=== PATIENT | female | born 1950 | race Caucasian/White ===

== ENCOUNTER 2022-01-04 10:33 | Outpatient (CLI) | payer MEDICARE, SELFPAY ==
--- NOTE | ~2022-01-04 | MR_ITS ---
EXAMINATION: MRA chest wo/w con DATE: 01/04/2022 12:14 INDICATION: Chest pain TECHNIQUE: Magnetic resonance angiogram (MRA) of the chest and thoracic aorta was performed without a nd with 15 mL Multihance intravenous contrast. Sequences included axial and coronal T2-weighted FS FS E, axial and sagittal 2D FIESTA FS, 3-D sagittal IFIR, axial MPR, coronal MIP, sagittal pre and time course of postcontrast T1-weighted FSPGR and postcontrast 3-D axial LAVA. COMPARISON: None. FINDINGS: No evident airspace disease or pleural effusion assessment of the lungs is significantly more limited than with CT. There is an AV malformation in the right middle lobe with both feeding pulmonary arter y and draining pulmonary vein extending to approximately 1 cm cluster of vessels. Heart size is scottie l. No pericardial effusion. Thoracic aorta and great vessels arising from the arch are normal in aysha suze with no dissection. No pathologically enlarged thoracic lymphadenopathy. Multiple T2 hyperintense bilateral renal cysts and small T2 hyperintense cyst in the left hepatic lobe. Mild S-shaped curvatu re of the thoracic spine with upper thoracic levocurvature and mid to lower thoracic dextrocurvature. IMPRESSION: 1. Normal caliber thoracic aorta with no dissection. 2. Right middle lobe pulmonary arteriovenous malformation. Reviewed, dictated and finalized at location A.
[2022-01-04 11:16] LABS: Estimated Glomerular Filt Rate 49
== END 2022-01-04 10:34 | disposition home or self-care (01) ==
PROVIDERS: PCP Family Medicine; Visit Provider Internal Medicine Cardiovascular Disease
DX: R07.9 Chest pain, unspecified (principal); N18.4 Chronic kidney disease, stage 4 (severe)
CPT/HCPCS: 71555; A9577; C8909

== ENCOUNTER 2022-06-30 10:37 | Outpatient (CLI) | payer MEDICARE, SELFPAY | END 2022-06-30 10:38 | disposition home or self-care (01) | PROVIDERS: PCP Family Medicine; Visit Provider Otolaryngology | DX: R00.1 Bradycardia, unspecified (principal); R55 Syncope and collapse; I48.0 Paroxysmal atrial fibrillation; H90.3 Sensorineural hearing loss, bilateral | CPT/HCPCS: 92557; 92567 ==

== ENCOUNTER 2022-07-01 10:46 | Outpatient (CLI) | payer MEDICARE, SELFPAY ==
--- NOTE | ~2022-07-01 | CT_ITS ---
EXAMINATION: CT sinus wo con DATE: 07/01/2022 11:32 INDICATION: Chronic sinusitis. TECHNIQUE: Computed tomography (CT) of the paranasal sinuses was performed without intravenous contra st. Iterative reconstruction technique was employed. The dose-length product was 265.49 mGy-cm. COMPARISON: Head CT 03/07/2009 FINDINGS: There is mild mucosal thickening in right frontal sinus and the bilateral ethmoid sinuses. The sphenoid sinuses are clear. There is mild mucosal thickening in right maxillary sinus. Left maxil anamika sinus is clear. There is rightward deviation of the nasal septum. There is marshall bullosa involv ing the middle turbinates. There are bilateral Jose Eduardo cells. The ostiomeatal units are patent. IMPRESSION: 1. Mild mucosal thickening in the paranasal sinuses. 2. Rightward deviation of the nasal septum. Reviewed, dictated and finalized at location A.
== END 2022-07-01 10:47 | disposition home or self-care (01) ==
PROVIDERS: PCP Family Medicine; Visit Provider Otolaryngology
DX: J32.9 Chronic sinusitis, unspecified (principal); J34.89 Other specified disorders of nose and nasal sinuses; R09.81 Nasal congestion; R44.8 Other symptoms and signs involving general sensations and perceptions; R09.82 Postnasal drip; J34.2 Deviated nasal septum
CPT/HCPCS: 70486

== ENCOUNTER → 2022-10-27 14:06 | Outpatient (CLI) | payer MEDICARE, SELFPAY ==
--- NOTE | ~2022-10-27 | XR_ITS ---
EXAMINATION: XR foot LT min 3V DATE: 10/27/2022 14:24 INDICATION: Fifth metatarsal pain post fall TECHNIQUE: Dorsoplantar, two oblique and lateral views of the left foot were obtained. COMPARISON: 10/23/2015 FINDINGS: Again seen is prominent diffuse osteopenia. Old fracture of the fifth metatarsal diaphysis which has healed in near-anatomic alignment. No acute fractures identified. Polyarticular osteoarthritis, moder ate severity at the naviculocuneiform, second and third tarsal metatarsal, first metatarsophalangeal and third-fourth distal interphalangeal joints and mild at many of the remaining joints in the mid an d forefoot. Moderate-sized plantar calcaneal spur. Scattered vascular calcifications about the foot a nd ankle. Soft tissues are otherwise unremarkable. No ankle joint effusion. IMPRESSION: 1. Old healed fracture of the left fifth metatarsal. No acute osseous abnormality. 2. Mild to moderate polyarticular osteoarthritis in the left mid and forefoot. Reviewed, dictated and finalized at location A. H MAKER IMPRESSION: 1. Old healed fracture of the left fifth metatarsal. No acute osseous abnormali ty. 2. Mild to moderate polyarticular osteoarthritis in the left mid and forefoot.
== END ==
PROVIDERS: PCP Family Medicine; Visit Provider Family Medicine
DX: S99.199A Other physeal fracture of unspecified metatarsal, initial encounter for closed fracture (principal); X58.XXXA Exposure to other specified factors, initial encounter; M19.072 Primary osteoarthritis, left ankle and foot
CPT/HCPCS: 73630

== ENCOUNTER → 2023-07-13 12:27 | Outpatient (CLI) | payer MEDICARE, SELFPAY ==
--- NOTE | ~2023-07-13 | MR_ITS ---
MRI of the brain Clinical History: Encephalitis Technique: Axial and sagittal T1-weighted images were acquired. These were followed by axial T2-weigh jason, diffusion weighted, gradient, and FLAIR images. Findings: No significant signal abnormality seen in the brain parenchyma. No acute infarct, intracran ial hemorrhage, or mass lesion. Ventricles and subarachnoid spaces are unremarkable. Orbits are unremarkable. Paranasal sinuses and m astoid air cells are clear. Major intracranial flow voids are intact. Sagittal midline structures are intact. There is suspected mild cord compression at C4-C5 related to degenerative disc disease. IMPRESSION: No significant intracranial abnormality. Probable mild cord compression at C4-C5 related to degenerative disc disease. Consider follow-up dedi cated cervical spine MR, as indicated. Reviewed, dictated and finalized at location . IMPRESSION: No significant intracranial abnormality. Probable mild cord compression at C4-C5 related to degenerative disc disease. C onsider follow-up dedicated cervical spine MR, as indicated.
== END ==
PROVIDERS: PCP Family Medicine; Visit Provider Family Medicine
DX: G04.90 Encephalitis and encephalomyelitis, unspecified (principal)
CPT/HCPCS: 70551

== ENCOUNTER 2023-07-27 08:34 | Outpatient (CLI) | payer MEDICARE, SELFPAY ==
--- NOTE | 2023-08-20 20:51 | WPDSLEEPSTUD ---
Sleep Study Date of Study: 07/27/23 Ordering Provider: Nikunj Sandoval MD Interpreting Physician: Susan Sung MD Sleep Study Type: Split Polysomnogram Height: 1.75 m Weight: 112.491 kg Body Mass Index: 36.6 Neck Circumference (inches): 17 [place]: 12 Reason for Sleep Study Fatigue, hypersomnolence Sleep History Radha Crocker is a 73-year-old woman with hypersomnolence and fatigue. She used CPAP over 10 years ago, was treated at [place]. She lost weight, retested, was told that she no longer had sleep apnea. She now is seeing Dr Sandoval, Dr Bella and Dr Travis. Her current symptoms is fatigue for over 2 months. She never awakens from sleep short of breath. She occasionally wakes at night with heartburn, belching or coughing.??She rarely snores, never snores loudly enough that others complain. She frequently has trouble sleeping when she has a cold. She never wakes up gasping for breath during the night. She never has breathing problems at night observed by others. She frequently sweats excessively at night. She never notices her heart pounding or beating irregularly during the night. She never falls asleep during the day. She never falls asleep involuntarily, never falls asleep while driving. She never experiences loss of muscle tone with strong emotion. She never feels paralyzed on waking or falling asleep. She never experiences vivid dreams upon waking or falling asleep. She never feels afraid of going to sleep. She rarely has nightmares. She rarely recalls her dreams. She never has thoughts racing through her mind. She rarely feels sad or depressed. She rarely feels anxiety. She occasionally notices parts of her body jerk. She occasionally kicks during the night. She frequently feels crawling or aching feelings in her legs. She frequently feels leg pain at night. She never has morning jaw pain, frequently grinds her teeth at night. She frequently feels bothered by pain during the day, is occasionally awakened by pain during the night. She frequently wakes up feeling stiff in the morning, frequently wakes feeling sore or achy in the morning. She frequently awakens with pain in her neck, spine, or joints. She has had memory problems for the last 2 months.. She has had concentration difficulties which seem to be improving. Normal bedtime is 10:00 p.m., falling asleep in minutes. She wakes up 3-4 times during the night to use the bathroom, returns to sleep within 5-10 minutes. She reports getting 8-10 hours of sleep per night. Her wake time is between 7:00 a.m. to 9:00 a.m. She takes naps however a short nap lasting 10-15 minutes is not refreshing. . Habits:??Tobacco: never smoker Caffeine:8 oz per day. Alcohol: none. Recreational substances: none PMFSH Past Medical History Medical History Back pain of thoracolumbar region Cervical spinal stenosis C4-5 Essential (primary) hypertension Infection of total knee replacement LVH (left ventricular hypertrophy) Morbid obesity with BMI of 40.0-44.9, adult Obstructive sleep apnea Osteoarthritis of right knee Senile osteoporosis Type 2 diabetes mellitus with diabetic autonomic neuropathy, with long-term current use of insulin Vertigo Family History Family History Grandparent Diabetes mellitus Hypertension Family history of cardiovascular disease Sibling Diabetes mellitus Depression Hypertension Asthma Family history of cardiovascular disease Father Family history of mental disorder Family history of lung cancer Mother Family history of mental disorder Depression Hypertension Family history of cardiovascular disease Other Family history of malignant neoplasm of breast Social History Social History Smoking status: Never smoker Alcohol intake: never Lack of Transportation
[2023-08-20 23:41] VITALS: BMI 36.6
== END 2023-07-28 06:35 | disposition home or self-care (01) ==
LOC: ANHCSM 08:35
PROVIDERS: PCP Family Medicine; Visit Provider Family Medicine
DX: G47.33 Obstructive sleep apnea (adult) (pediatric) (principal)
CPT/HCPCS: 95811

== ENCOUNTER → 2023-09-28 10:31 | Outpatient (CLI) | payer MEDICARE, SELFPAY ==
--- NOTE | ~2023-09-28 | MR_ITS ---
MRI of the lumbar spine Clinical History: Spinal stenosis Technique: Axial T2-weighted images, and sagittal T1-weighted, T2-weighted, and and T2 fat-sat images were acquired. Findings: No acute fracture seen. There is a 5 mm retrolisthesis of L2 over L3. No suspicious bone ma rrow signal abnormality seen. At L1-L2, there is mild degenerative disc narrowing. There is minimal disc bulge and mild facet arthr opathy. No central canal stenosis or neural foraminal narrowing. At L2-L3, there is advanced degenerative disc narrowing. Disc bulge and facet arthropathy result in m oderate to severe spinal canal stenosis/thecal sac compression. There is severe right neural foramina l narrowing, and moderate left neural foraminal narrowing. L3-L4, there is advanced degenerative disc narrowing. Disc bulge and facet arthropathy result in mode rate to severe spinal canal stenosis/thecal sac compression. There is severe right neural foraminal n arrowing, and moderate to severe right neural foraminal narrowing. At L4-L5, there is advanced degenerative disc narrowing. Disc bulge and severe facet arthropathy resu lt in severe spinal canal stenosis/thecal sac compression. There is severe bilateral neural foraminal narrowing, left worse than right. At L5-S1, there is degenerative disc narrowing. Disc bulge and facet arthropathy are present, with mi ld central canal stenosis. There is mild right neural foraminal narrowing. Left neural foramen preser jeanette. Paravertebral soft tissues are unremarkable. Impression: 5 mm retrolisthesis of L2 over L3. Severe degenerative spondylosis of the lumbar spine, as detailed above, probably worst at L4-L5. Reviewed, dictated and finalized at location . NESS MANAGEMENT PROFESSOR Impression: 5 mm retrolisthesis of L2 over L3. Severe degenerative spondylosis of the lumbar spine, as detailed above, probabl y worst at L4-L5.
== END ==
PROVIDERS: PCP Family Medicine; Visit Provider Family Medicine
DX: M48.061 Spinal stenosis, lumbar region without neurogenic claudication (principal); M43.16 Spondylolisthesis, lumbar region
CPT/HCPCS: 72148

== ENCOUNTER → 2023-10-18 08:44 | Outpatient (CLI) | payer MEDICARE, SELFPAY ==
--- NOTE | ~2023-10-18 | XR_ITS ---
Left Shoulder Technique: AP and scapular Y views were obtained. Clinical History: Pain Findings: No fracture or dislocation is seen. Osseous alignment is anatomic. There is [id number] e AC joint degenerative change. Glenohumeral joint is intact. Soft tissues are unremarkable. Impression: [id number] AC joint degenerative change. Reviewed, dictated and finalized at location . EHOLD APPLIANCE ASSEMBLER Impression: [id number] AC joint degenerative change.
--- NOTE | ~2023-10-18 | XR_ITS ---
EXAM: XR lumbar spine 6V w bending DATE: 10/18/2023 09:24 HISTORY: M48.061 - Spinal stenosis, lumbar region without neurogen... . COMPARISON: 12/11/2007. FINDINGS: 5 nonrib-bearing lumbar-type vertebral bodies. Pedicles intact. Moderate lumbar scoliosis. No pars defect. Grade 1 retrolistheses at L1-2 and L2-3, similar to the prior, that reduce in flexio n and are stable in extension. Grade 1 anterolisthesis at L4-5, similar to the prior, that increases to grade 2 in flexion and is stable in extension. Severe degenerative disc disease from L2-3 through L5-S1. Moderate facet sclerosis and hypertrophy in the lower lumbar spine. Vascular calcifications. N o fracture or dislocation. IMPRESSION: Dynamic listheses at L1-2, L2-3, and L4-5. Multilevel severe degenerative disc disease. Multilevel lower moderate lower lumbar facet arthropathy. Reviewed, dictated and finalized at location K. STONE CUTTER
== END ==
PROVIDERS: PCP Family Medicine; Visit Provider Physician Assistant
DX: M48.061 Spinal stenosis, lumbar region without neurogenic claudication (principal); M51.36 Other intervertebral disc degeneration, lumbar region; M19.012 Primary osteoarthritis, left shoulder
CPT/HCPCS: 72114; 73030

== ENCOUNTER → 2023-10-19 12:46 | Outpatient (CLI) | payer MEDICARE, SELFPAY ==
--- NOTE | ~2023-10-19 | MR_ITS ---
MRI of the cervical spine Clinical History: Spinal stenosis Technique: Axial T2-weighted and gradient images, and sagittal T1-weighted, T2-weighted, and STIR veda ges were acquired. Findings: There is no fracture of the cervical spine. There is minimal grade 1 anterolisthesis of C3 over C4. No suspicious bone marrow signal abnormality seen. At C2-C3, there is no significant disc bulge or herniation. No spinal canal stenosis, cord compressio n, or neural foraminal narrowing. There is right facet arthropathy. At C3-C4, there is mild disc osteophyte complex without canal stenosis or cord compression. There is right neural foraminal narrowing, and possible minimal left neural foraminal narrowing. There is bila teral facet arthropathy, right worse than left. At C4-C5, there is degenerative disc narrowing with disc osteophyte complex and central disc protrusi on. There is mild canal stenosis and mild flattening of the ventral cord. There is bilateral neural f oraminal narrowing. At C5-C6, there is moderate to advanced degenerative disc narrowing. There is disc ossify complex wit h mild canal stenosis but no jyoti cord compression. There is significant bilateral neural foraminal narrowing. At C6-C7, there is disc osteophyte complex with minimal canal stenosis but no jyoti cord compression. Bilateral neural foramina are preserved. No abnormal signal seen in the spinal cord. Paravertebral soft tissues are unremarkable. Impression: Moderate degenerative spondylosis, especially at C3-C4, C4-C5, and C5-C6, as detailed above. Reviewed, dictated and finalized at [facility], [place]. OR HEALTH PHYSICS TECHNICIAN Impression: Moderate degenerative spondylosis, especially at C3-C4, C4-C5, and C5-C6, as de tailed above.
== END ==
PROVIDERS: PCP Family Medicine; Visit Provider Physician Assistant
DX: M48.061 Spinal stenosis, lumbar region without neurogenic claudication (principal); M47.892 Other spondylosis, cervical region
CPT/HCPCS: 72141

== ENCOUNTER 2024-03-19 12:40 | Outpatient (CLI) | payer MEDICARE, SELFPAY ==
--- NOTE | ~2024-03-19 | CT_ITS ---
EXAMINATION: CT sinus wo con DATE: 03/19/2024 13:04 INDICATION: Nasal polyp, unspecified. TECHNIQUE: Computed tomography (CT) of the paranasal sinuses was performed without intravenous contra st. Iterative reconstruction technique was employed. The dose-length product was 372.86 mGy-cm. COMPARISON: CT sinuses 07/01/22 FINDINGS: There is mild mucosal thickening in the frontal sinuses and ethmoid sinuses. There is mild mucosal thickening in right sphenoid sinus and right maxillary sinus. Left maxillary sinus is clear. There are bilateral Jose Eduardo cells. There is pneumatization of the vertical lamina of the middle turbin ates. Left ostiomeatal unit is patent. Right ostiomeatal unit is a occluded at the infundibulum. Ther e are widely patent bilateral secondary maxillary ostia. There is rightward deviation of the nasal se ptum. IMPRESSION: 1. Mild mucosal thickening in the paranasal sinuses. 2. Rightward deviation of the nasal septum. Reviewed, dictated and finalized at location A.
== END 2024-03-19 12:41 ==
LOC: GOSHIMG 12:40
PROVIDERS: PCP Family Medicine; Visit Provider Family Medicine
DX: R44.8 Other symptoms and signs involving general sensations and perceptions (principal); J32.9 Chronic sinusitis, unspecified; J33.9 Nasal polyp, unspecified; J34.2 Deviated nasal septum
CPT/HCPCS: 70486

== ENCOUNTER 2024-04-04 09:56 | Emergency (ER) | payer MEDICARE, SELFPAY ==
[2024-04-04 10:09] VITALS: BP 148/99; PULSE 94; RESP 17; TEMP 36.4; O2SAT 97
[2024-04-04 10:53] VITALS: BP 176/90; PULSE 94; RESP 18; O2SAT 94
--- NOTE | 2024-04-04 11:00 | ED.LOWEXIN ---
HPI - Extremity Injury (Lower) General Chief Complaint: Extremity Injury, Lower Stated Complaint: ulcer on R. leg Time Seen by Provider: 04/04/24 10:28 History of Present Illness HPI Narrative: 73-year-old female history of hypertension, LVH, type 2 diabetes and arthritis if presents to the ER for evaluation leg wound to her right kimbrough. Patient states she noticed a small ulceration 2 days ago that has grown in size. Reports surrounding erythema pain and swelling. Patient was sent by her PCP for further eval. Denies injury or trauma to the area. Related Data Home Medications Medication Instructions Recorded Confirmed calcium carbonate (Calcium 600) 600 mg PO BID 11/08/19 04/03/24 cetirizine 10 mg tablet 5 mg PO HS 11/08/19 04/03/24 guaifenesin 600 mg tablet, 600 mg PO BID 07/20/21 04/03/24 extended release 12 hr (Mucinex) warfarin 5 mg tablet See Rx Instructions .Route .COMPLEX 09/23/22 04/03/24 losartan 50 mg tablet 50 mg PO HS 12/15/22 04/03/24 aspirin 81 mg tablet,delayed 81 mg PO DAILY 02/22/24 04/03/24 release metoprolol succinate 50 mg 50 mg PO QAM 02/22/24 04/03/24 tablet,extended release 24 hr Probiotic 1 tab-cap BID 04/03/24 04/03/24 amoxicillin 500 mg capsule 500 mg TID 04/03/24 04/03/24 insulin glargine 100 unit/mL (3 80 unit subcut BID 04/03/24 04/03/24 mL) subcutaneous pen (Lantus Solostar U-100 Insulin) isosorbide mononitrate 30 mg 30 mg PO QAM 04/03/24 04/03/24 tablet,extended release 24 hr mometasone-formoterol HFA 200 2 inh inhalation BID 04/03/24 04/03/24 mcg-5 mcg/actuation aerosol inhaler (Dulera) Allergies Allergy/AdvReac Type Severity Reaction Status Date / Time methyldopa Allergy Severe RESP Verified 04/04/24 10:52 DISTRESS adhesive Allergy Mild BLISTERS Verified 04/04/24 10:52 TO STERI STRIPS cefuroxime Allergy Unknown Anaphylactic Verified 04/04/24 10:52 Shock Cephalosporins Allergy Unknown STATES Verified 04/04/24 10:52 ALLERGIC TO CEFTIN - ANAPHYLACTIC SHOCK medroxyprogesterone Allergy Unknown Migraines Verified 04/04/24 10:52 BENZOIN Allergy Unknown RED RASH Uncoded 04/04/24 10:52 SHELLFISH Allergy Unknown NAUSEA/VOMI Uncoded 04/04/24 10:52 TING STERI STRIPS AdvReac Unknown REDNESS Uncoded 04/04/24 10:52 Review of Systems Review of Systems: ROS unremarkable except for noted in HPI PMFSH Past Medical History Medical History Back pain of thoracolumbar region Cervical spinal stenosis C4-5 Essential (primary) hypertension Infection of total knee replacement LVH (left ventricular hypertrophy) Morbid obesity with BMI of 40.0-44.9, adult Obstructive sleep apnea Osteoarthritis of right knee Senile osteoporosis Type 2 diabetes mellitus with diabetic autonomic neuropathy, with long-term current use of insulin Vertigo Family History Family History Grandparent Diabetes mellitus Hypertension Family history of cardiovascular disease Sibling Diabetes mellitus Depression Hypertension Asthma Family history of cardiovascular disease Father Family history of mental disorder Family history of lung cancer Mother Family history of mental disorder Depression Hypertension Family history of cardiovascular disease Other Family history of malignant neoplasm of breast Social History Social History Smoking status: Never smoker Second hand tobacco smoke exposure: No Alcohol intake: never Substance use: never Substance use type: does not use Do You Feel Safe in your Home?: Yes Lack of Transportation: No Lack of Food: Never True Current Housing: I Have Housing Concerned About Future Housing: No Difficulty Paying Gas/Electric Bills: No Difficulty Paying for Meds: No Currently Unemployed: No Education: [place]
[2024-04-04 11:24] LABS: Basophils Absolute Auto 0.1 K/mm3 (0.0-0.1); Basophils Percent Auto 0.9 % (0.2-1.2); Eosinophils Absolute Auto 0.3 K/mm3 (0-0.3); Eosinophils Percent Auto 4.2 % (0-4.4); Hematocrit 44.7 % (37.0-47.0); Hemoglobin 14.7 g/dL (12.0-15.0); Immature Granulocyte Absolute 0.04 K/mm3 (0.00-0.031); Immature Granulocyte Percent A 0.6 % (0-0.5); Lymphocytes Absolute Auto 1.79 K/mm3 (0.9-3.2); Lymphocytes Percent Auto 28.1 % (18.3-44.2); Mean Corpuscular HGB Conc 32.9 g/dl (32-36); Mean Corpuscular Hemoglobin 29.9 pg (26-34); Mean Corpuscular Volume 90.9 fl (80-100); Mean Platelet Volume 9.1 fl (7.4-10.4); Monocytes Absolute Auto 0.5 K/mm3 (0.1-0.6); Neutrophils Absolute Auto 3.7 K/mm3 (1.3-6.7); Neutrophils Percent Auto 58.2 % (45.5-73.1); Platelet Count Result 248 k/mm3 (150-375); Red Blood Count 4.92 M/mm3 (4.2-5.4); Red Cell Distribution Width 14.8 % (11.5-14.5); White Blood Count 6.4 K/mm3 (4.5-10.0)
[2024-04-04 11:34] LABS: Alanine Aminotransferase 27 U/L (6-35); Albumin Level 4.3 g/dL (3.5-5.1); Alkaline Phosphatase 103 U/L (38-126); Anion Gap 8 mmol/L (4-12); Aspartate Amino Transferase 23 U/L (14-36); Bilirubin,Total 0.6 mg/dL (0.2-1.3); Blood Urea Nitrogen 29 mg/dL (7-17); Carbon Dioxide 28 mmol/L (22-30); Chloride 103 mmol/L (98-107); Estimated CRCL calculation 48 ml/min; Estimated Glomerular Filt Rate 40; Glucose 182 mg/dL (65-110); Potassium 4.5 mmol/L (3.4-5.0); Sodium 139 mmol/L (137-145)
== END 2024-04-04 11:48 | disposition home or self-care (01) ==
PROVIDERS: Emergency Provider Nurse Practitioner Family; PCP Family Medicine
DX: E11.622 Type 2 diabetes mellitus with other skin ulcer (principal); L97.819 Non-pressure chronic ulcer of other part of right lower leg with unspecified severity; I11.9 Hypertensive heart disease without heart failure; E11.43 Type 2 diabetes mellitus with diabetic autonomic (poly)neuropathy; E66.01 Morbid (severe) obesity due to excess calories; Z68.37 Body mass index [BMI] 37.0-37.9, adult; M81.0 Age-related osteoporosis without current pathological fracture; M17.11 Unilateral primary osteoarthritis, right knee; Z96.659 Presence of unspecified artificial knee joint; Z79.82 Long term (current) use of aspirin; Z79.899 Other long term (current) drug therapy; Z79.4 Long term (current) use of insulin; Z79.01 Long term (current) use of anticoagulants; Z79.84 Long term (current) use of oral hypoglycemic drugs
CPT/HCPCS: 36415; 80053; 85025; 87070; 87205; 99283

== ENCOUNTER 2024-04-06 10:08 | Outpatient (CLI) | payer MEDICARE, SELFPAY ==
[2024-04-06 11:09] LABS: INR 1.3; Partial Thromboplastin Time 30.6 Seconds (22.3-36.8); Prothrombin Time 16.6 Seconds (11.1-14.7)
== END 2024-04-06 10:09 | disposition home or self-care (01) ==
LOC: ANHSURGERY 10:12
PROVIDERS: Anesthesiology; PCP Family Medicine; Visit Provider Otolaryngology
DX: Z79.01 Long term (current) use of anticoagulants (principal)
CPT/HCPCS: 36415; 85610; 85730

== ENCOUNTER 2024-04-10 02:56 | Day surgery (SDC) | payer MEDICARE, SELFPAY ==
[2024-04-03 11:54] VITALS: BMI 37.8
--- NOTE | 2024-04-03 12:16 | PC.NURSE ---
PRE-OP INSTRUCTIONS PLEASE READ CAREFULLY Report to the Outpatient Waiting Room, entrance under the green pavilion located off [facility], at time _1100_ on date _04/10/24_. Planned Procedure Time: _1 PM_. Time changes happen often and if your time is changed the preop area will call you the afternoon before. - You and your visitor will be asked to self-screen and do not enter if you have any COVID symptoms. - A mask is optional within the hospital at this time. Patients may have clear liquids (water, carbonated beverages, clear teas, apple juice) until 3 hours prior to surgery (1000 AM) with a maximum of 20 ounces. - No food from midnight until time of surgery Take the following medications with a SIP of water the morning of surgery: _*1/2 OF AM LANTUS DOSE, DO NOT TAKE ANY HUMALOG INSULIN*, AMOXICILLIN, CELEBREX, ISOSORBIDE, LEVOTHYROXINE, METOPROLOL, DULERA INHALER, & ALBUTEROL INHALER IF NEEDED_ DO NOT STOP ANY OF YOUR OTHER PRESCRIPTION MEDICATIONS PRIOR TO SURGERY ?EXCEPT THE FOLLOWING Medications to discontinue per DR. CORTEZ - _WARFARIN 5 DAYS PRIOR TO SURGERY (PER PATIENT) Date to take last dose 04/04/24, [facility] CALL OFFICE FOR INSTRUCTIONS [phone]_ Medications to discontinue per ANESTHESIA - _VITAMINS/SUPPLEMENTS 3 DAYS PRIOR TO SURGERY, Date to take last dose 04/06/24_ Please no make-up, nail solomon islander, hairspray, perfume, deodorant, or body powder the day of surgery. No jewelry (including any body piercings) or valuables the day of surgery, leave them at home. Please take a shower or bath the night before, or the morning of, surgery with an antibacterial soap. Wear comfortable, loose fitting clothing. - Jewelry must be removed prior to entering the operating room. Rings and piercings that are not removed may be cut off. - The hospital will not accept responsibility for valuables. - Please leave all valuables, including medications, at home the day of surgery. If you are going home after surgery, a licensed flatbed truck driver must drive you home. - NO public transportation without another adult if you receive anesthesia. - We recommend that an adult stay with you for 24 hours following discharge. - We also recommend that you do not drive, make important decision, drink alcoholic beverages, or take any drugs that were not prescribed by your health care provider for at least 24 hours after your discharge time. Follow any additional instructions given to you from your surgeon. If you or anyone in your household have experienced Covid symptoms in the past week, please notify your surgeon or the nurse liaison at the phone number below for possible testing. Telephone instructions given to _PATIENT_and asked if any additional questions and then verbalized understanding. Patient advised to call surgeon office or pre surgery nurse liaison [phone] if any additional questions.
--- NOTE | 2024-04-09 17:36 | PM.IMHP ---
H&P: HPI History of Present Illness Date/Time: 04/09/24 17:36 Chief Complaint: chronic sinusitis recurrent sinusitis septal deviation Narrative: planned procedure Review of Systems Review of Systems: All systems reviewed & are unremarkable except as noted in HPI and below [facility] Past Medical History Medical History Back pain of thoracolumbar region Cervical spinal stenosis C4-5 Essential (primary) hypertension Infection of total knee replacement LVH (left ventricular hypertrophy) Morbid obesity with BMI of 40.0-44.9, adult Obstructive sleep apnea Osteoarthritis of right knee Senile osteoporosis Type 2 diabetes mellitus with diabetic autonomic neuropathy, with long-term current use of insulin Vertigo Family History Family History Grandparent Diabetes mellitus Hypertension Family history of cardiovascular disease Sibling Diabetes mellitus Depression Hypertension Asthma Family history of cardiovascular disease Father Family history of mental disorder Family history of lung cancer Mother Family history of mental disorder Depression Hypertension Family history of cardiovascular disease Other Family history of malignant neoplasm of breast Social History Social History Smoking status: Never smoker Second hand tobacco smoke exposure: No Alcohol intake: never Substance use: never Substance use type: does not use Do You Feel Safe in your Home?: Yes Lack of Transportation: No Lack of Food: Never True Current Housing: I Have Housing Concerned About Future Housing: No Difficulty Paying Gas/Electric Bills: No Difficulty Paying for Meds: No Currently Unemployed: No Education: Bachelor's Degree Difficulty w/ Childcare or Family Care: No Living arrangements: alone Spiritual care concerns: No Meds Home Medications and Allergies Home Medications Medication Instructions Recorded Confirmed Type calcium carbonate (Calcium 600) 600 mg PO BID 11/08/19 04/03/24 History cetirizine 10 mg tablet 5 mg PO HS 11/08/19 04/03/24 History flash glucose scanning reader #1 ea 03/06/21 04/03/24 Rx (FreeStyle Cecille 14 Day [place]) flash glucose sensor (FreeStyle #13 ea 03/06/21 04/03/24 Rx Cecille 14 Day Sensor kit) guaifenesin 600 mg tablet, 600 mg PO BID 07/20/21 04/03/24 History extended release 12 hr (Mucinex) mupirocin 2 % topical ointment 1 applic topical BID #22 grams 09/23/22 04/03/24 Rx warfarin 5 mg tablet See Rx Instructions .Route .COMPLEX 09/23/22 04/03/24 History losartan 50 mg tablet 50 mg PO HS 12/15/22 04/03/24 History allopurinol 100 mg tablet See Rx Instructions .Route 06/08/23 04/03/24 Rx .COMPLEX #270 tabs metformin 500 mg tablet,extended 1,000 mg PO BID #360 tabs 06/23/23 04/03/24 Rx release 24 hr ResMed AirFit P30i #1 ea 08/22/23 04/03/24 Rx atorvastatin 10 mg tablet See Rx Instructions .Route 10/24/23 04/03/24 Rx .COMPLEX #100 tabs celecoxib 200 mg capsule See Rx Instructions .Route 10/24/23 04/03/24 Rx .COMPLEX #200 caps levothyroxine 150 mcg tablet 150 mcg PO DAILY #100 tabs 10/24/23 04/03/24 Rx (Synthroid) potassium chloride 20 mEq See Rx Instructions .Route 10/24/23 04/03/24 Rx tablet,extended release(part/cryst) .COMPLEX #100 tabs insulin lispro 200 unit/mL (3 mL) See Rx Instructions .Route 12/09/23 04/03/24 Rx subcutaneous pen (Humalog KwikPen .COMPLEX #54 mL U-200 Insulin) ropinirole 0.5 mg tablet See Rx Instructions .Route 12/09/23 04/03/24 Rx .COMPLEX #300 tabs empagliflozin 25 mg tablet See Rx Instructions .Route 01/23/24 04/03/24 Rx (Jardiance) .COMPLEX #100 tabs furosemide 40 mg tablet See Rx Instructions PO .COMPLEX 01/23/24 04/03/24 Rx #300 tabs albuterol sulfate 90 mcg/actuation See Rx Instructions .Route 02/06/24 04/03/24 Rx aer
[2024-04-10] VITALS (8 sets, daily range): BP systolic 107–143; BP diastolic 56–96; PULSE 71–83; RESP 14–18; TEMP 36.1–37.1; O2SAT 95–97
--- NOTE | 2024-04-10 07:18 | WPDHPUPDATE1 ---
History and Physical Update Update Date/Time: 04/10/24 07:18 History and Physical has been reviewed, including an updated exam of the patient. There are NO changes in the patient's condition. Risks, benefits, and alternatives have been discussed and questions answered. Patient agrees to proceed with procedure.
--- NOTE | 2024-04-10 08:57 | WPDANESEPPF ---
Anes - Initial Pre Proc Eval Procedure: Operation Date: 04/10/24 10:00 Proposed Procedures p Image Guided Endoscopic Bilateral Maxillary Antrostomy, Bilateral Total Ethmoidectomy, Bilateral Frontal Sinusotomy, Bilateral Sphenoidotomy - Guille Travis MD s Endoscopic Assisted Septoplasty - Guille Travis MD Date/Time: 04/10/24 08:57 Surgeon: Guille Travis MD Pre Op Diagnosis: Chr Sinusitis, Septal Dev Patient Data Age: 73 Gender: F Height: 1.75 m Weight: 116.36 kg Allergies Allergy/AdvReac Type Severity Reaction Status Date / Time methyldopa Allergy Severe RESP Verified 04/04/24 10:52 DISTRESS adhesive Allergy Mild BLISTERS Verified 04/04/24 10:52 TO STERI STRIPS cefuroxime Allergy Unknown Anaphylactic Verified 04/04/24 10:52 Shock Cephalosporins Allergy Unknown STATES Verified 04/04/24 10:52 ALLERGIC TO CEFTIN - ANAPHYLACTIC SHOCK medroxyprogesterone Allergy Unknown Migraines Verified 04/04/24 10:52 BENZOIN Allergy Unknown RED RASH Uncoded 04/04/24 10:52 SHELLFISH Allergy Unknown NAUSEA/VOMI Uncoded 04/04/24 10:52 TING STERI STRIPS AdvReac Unknown REDNESS Uncoded 04/04/24 10:52 Home Medications Medication Instructions Recorded Confirmed Type calcium carbonate (Calcium 600) 600 mg PO BID 11/08/19 04/03/24 History cetirizine 10 mg tablet 5 mg PO HS 11/08/19 04/03/24 History flash glucose scanning reader #1 ea 03/06/21 04/03/24 Rx (FreeStyle Cecille 14 Day [place]) flash glucose sensor (FreeStyle #13 ea 03/06/21 04/03/24 Rx Cecille 14 Day Sensor kit) guaifenesin 600 mg tablet, 600 mg PO BID 07/20/21 04/03/24 History extended release 12 hr (Mucinex) mupirocin 2 % topical ointment 1 applic topical BID #22 grams 09/23/22 04/03/24 Rx warfarin 5 mg tablet See Rx Instructions .Route .COMPLEX 09/23/22 04/03/24 History losartan 50 mg tablet 50 mg PO HS 12/15/22 04/03/24 History allopurinol 100 mg tablet See Rx Instructions .Route 06/08/23 04/03/24 Rx .COMPLEX #270 tabs metformin 500 mg tablet,extended 1,000 mg PO BID #360 tabs 06/23/23 04/03/24 Rx release 24 hr ResMed AirFit P30i #1 ea 08/22/23 04/03/24 Rx atorvastatin 10 mg tablet See Rx Instructions .Route 10/24/23 04/03/24 Rx .COMPLEX #100 tabs celecoxib 200 mg capsule See Rx Instructions .Route 10/24/23 04/03/24 Rx .COMPLEX #200 caps levothyroxine 150 mcg tablet 150 mcg PO DAILY #100 tabs 10/24/23 04/03/24 Rx (Synthroid) potassium chloride 20 mEq See Rx Instructions .Route 10/24/23 04/03/24 Rx tablet,extended release(part/cryst) .COMPLEX #100 tabs insulin lispro 200 unit/mL (3 mL) See Rx Instructions .Route 12/09/23 04/03/24 Rx subcutaneous pen (Humalog KwikPen .COMPLEX #54 mL U-200 Insulin) ropinirole 0.5 mg tablet See Rx Instructions .Route 12/09/23 04/03/24 Rx .COMPLEX #300 tabs empagliflozin 25 mg tablet See Rx Instructions .Route 01/23/24 04/03/24 Rx (Jardiance) .COMPLEX #100 tabs furosemide 40 mg tablet See Rx Instructions PO .COMPLEX 01/23/24 04/03/24 Rx #300 tabs albuterol sulfate 90 mcg/actuation See Rx Instructions .Route 02/06/24 04/03/24 Rx aerosol inhaler .COMPLEX #8.5 grams aspirin 81 mg tablet,delayed 81 mg PO DAILY 02/22/24 04/03/24 History release metoprolol succinate 50 mg 50 mg PO QAM 02/22/24 04/03/24 History tablet,extended release 24 hr Probiotic 1 tab-cap BID 04/03/24 04/03/24 History amoxicillin 500 mg capsule 500 mg TID 04/03/24 04/03/24 History insulin glargine 100 unit/mL (3 80 unit subcut BID 04/03/24 04/03/24 History mL) subcutaneous pen (Lantus Solostar U-100 Insulin) isosorbide mononitrate 30 mg 30 mg PO QAM 04/03/24 04/03/24 History tablet,extended release 24 hr mometasone-formoterol HFA 200 2 inh inhalation BID 04/03/24 04/03/24 History mcg-5 mcg/actuation aerosol inhaler (Dannie) doxycycline monohydrate 100 mg 100 mg PO DAILY #14 caps 04/04/24 Rx capsule Laboratory Tests 04/10/24 08:41 PT P
[2024-04-10] MEDS: ACETAMINOPHEN 500 MG TABLET 1000 MG PO (09:00)
[2024-04-10] MEDS: LACTATED RINGERS 1,000 ML 30 ML IV CONT ×2 (09:00→13:32)
[2024-04-10 09:05] LABS: Glucose Point of Care 75 mg/dl (65-105)
[2024-04-10 09:08] LABS: INR 1.1; Partial Thromboplastin Time 27.9 Seconds (22.3-36.8); Prothrombin Time 14.7 Seconds (11.1-14.7)
[2024-04-10] MEDS: CLINDAMYCIN 900 MG/D5W 50 ML 900 MG/50 ML PIGGYBACK 50 MG IVPB (10:22)
[2024-04-10] MEDS: LIDO 1%/EPINEPHRINE 1:100,000 50 ML VIAL INFILTRATE (10:48)
[2024-04-10] MEDS: HEMOSTATIC MATRIX (SURGIFLO with THROMBIN) KIT 1 KIT XX (12:59)
--- NOTE | 2024-04-10 14:06 | P.OP_ITS ---
Procedure Note - Detailed Date of Procedure 04/10/24 Pre-op Diagnosis Chr Sinusitis, Septal Dev Post-op Diagnosis Same Procedure Performed Endoscopic assisted septoplasty bilateral image guided endoscopic maxillary antrostomies total ethmoidectomies sphenoidotomies frontal sinusotomies Surgeon Guille Travis MD Anesthesia General Indications see above Findings sinuses were actually more polypoid in edematous than the CT scan would believe the left superior ethmoid cell next to the anterior ethmoidal artery had a lot of thick mucus in it. Which correlates to the CT scan. Excessive bleeding from the right sphenoid sinus this was stopped with FloSeal and Afrin-soaked pledgets. Description of Procedure Patient identified consent verified preop. Patient brought to the operating room. Time-out performed. General anesthesia induced endotracheal tube secured. Patient prepped draped position procedure confirmed 2nd time-out performed. Image guidance initiated and confirmed. Afrin-soaked pledgets maritza analisa for 5 minutes then removed. 0 degree endoscope utilized right septal deviation obstructing the middle meatus. Total 10 cc 1% lidocaine 1 100,000 parts of epinephrine epinephrine injected bilateral nasal septum. [place] incision made left-sided left nasal septal flap elevated. Osteotome as she no need to cross over previous septoplasty left all the bent cartilage visible. Right nasal septal flap elevated tear right superior none on the left side there is a small perforation. Deviated septum removed Brunilda forceps Donis [place] forceps and osteotome. Nasal septal flaps closed then closed up frontal 3 interrupted 5 0 fast gut sutures. Maxillary antrostomies performed with double ball tip probe image guidance straight through cut and backbiter as well as microdebrider. Great care was ensured taken to ensure that this surgical os connected the maxillary antrostomy. Total ethmoidectomies performed under image guidance with microdebrider [place] straight through cut. Sph enoidotomies performed with [place] image guidance [place] and sphenoid punch. The right sphenoid mucosa was it invaded lead torn and pulled out the slide Teresa significant bleeding probably 10 cc just in that sinus. This was easily stopped with application of FloSeal and Afrin-soaked pledgets. There was no injury to the carotid area this occurred from mucosa being gently tugged out in bold. Fro ntal sinuses performed bilaterally with image guidance frontal sinus seeker frontal sinus suction and Hosemann as well as Cobra and draft instruments. Both frontal sinuses widely patent. Tissue mildly edematous and outflow tract mucosa the frontal sinuses themselves looked okay. Wounds copiously irrigated foam absorbable parotic base non cotton no shellfish in the packing placed bilaterally. Patient tolerated the procedure well total blood loss probably 100 cc little bit more than normal. Given the bleeding from the right sphenoid in skull base bilaterally. No excessive bleeding at the end of the procedure. I performed all dictated portions procedure no complications Montoya splints were placed bilaterally and sutured anteriorly using a 3-0 mattress nylon suture. These were ensured to be lateral to the middle turbinates. Patient tolerated the procedure very well Estimated Blood Loss 100 Drains No Packing Yes Pathology None sent Complications No immediate complications Condition Stable Disposition PACU [facility] Billing Surgery - Charge Forward: Surgery Billing
== END 2024-04-10 15:40 | disposition home or self-care (01) ==
PROVIDERS: Anesthesiology; PCP Family Medicine; Visit Provider Otolaryngology
PROC: (CPT 30520; principal; 2024-04-10 10:00)
PROC: (CPT 30520; 2024-04-10 10:00)
DX: J34.2 Deviated nasal septum (principal); J01.01 Acute recurrent maxillary sinusitis; I10 Essential (primary) hypertension; E66.01 Morbid (severe) obesity due to excess calories; Z68.38 Body mass index [BMI] 38.0-38.9, adult; G47.33 Obstructive sleep apnea (adult) (pediatric); E11.43 Type 2 diabetes mellitus with diabetic autonomic (poly)neuropathy; Z79.4 Long term (current) use of insulin
CPT/HCPCS: 30520; 31256; 31257; 31276; 61782; 36415; 82948; 85610; 85730; A9270; J0330; J1100; J2371; J2405; J2704; J3010; J7050; J7120

== ENCOUNTER 2024-04-30 14:15 | Outpatient (CLI) | payer MEDICARE, SELFPAY | END 2024-04-30 14:16 | disposition home or self-care (01) | LOC: ANHAUDASC 14:16 | PROVIDERS: PCP Family Medicine; Visit Provider Otolaryngology | DX: H90.3 Sensorineural hearing loss, bilateral (principal); Z98.890 Other specified postprocedural states | CPT/HCPCS: 92557; 92567 ==

== ENCOUNTER 2025-05-31 12:03 | Outpatient (NON) | payer MEDICARE, SELFPAY ==
--- OUTSIDE RECORDS SUMMARY | 2025-05-31 12:06 | XMS_ITS | Encounter Summary ---
Author Organization [facility] Healthcare Address [address] [place] [address] Care Team Providers Care [place] Aide Name Role Phone Nikunj Sandoval MD Primary Care Provider [phone] Encounter Details Date Type Department Care Team (Late st Contact Info) Description 02/19/2025 Cardiology Conference Cardiology Daksha Spicer RN Social History Tobacco Use Types Packs/Day Years Used Date Smoking Tobacco: Never Cigarettes Passive Smoke Exposure: Past Smokeless Tobacco: Never Alcohol Use Standard Drinks/Week Comments No 0 (1 standard drink = 0.6 oz pur e alcohol) AUDIT-C Answer Date Recorded Q1: How often do you have a drink containing alcohol? Never 02/21/2025 Q2: How many drinks containi ng alcohol do you have on a typical day when you are drinking? Patient does not drink Q3: How often do you have si x or more drinks on one occasion? Never 02/21/2025 Personal Safety Answer Date Recorded Have you ever been in or are you currently in a harmful physical or emotional relationship or is someone making you feel afraid or unsafe? Denies 02/21/2025 Comments No Sex and Gender Information Value Date Recorded Sex Assigned at Not on file Legal Sex Female 11:00 AM ANALYSIS DIRECTOR Gender Identity Female 12/23/2020 9:30 AM ANALYSIS DIRECTOR Sexual Orientation Straight 12/08/2019 11 :19 AM ANALYSIS DIRECTOR documented as of this encounter Functional Status * AUDIT-C Score Answer Date of Assessment Author 0 02/21/2025 10:38 AM Rosangela Gibson RN * Question Answer Date of Assessment Author Q1: How often do you have a drink containing alcohol? Never 02/21/2025 10:38 AM CDT Rosangela Godfrey RN Q2: How many drinks containing alcohol do you have on a typical day when you are drinking? Patient does not drink 02/21/2025 10:38 AM [place] Rosangela Godfrey RN Q3: How often do you have six or more drinks on one occasion? Never 02/21/2025 10:38 AM CDT Rosangela Godfrey RN documented as of this encounter Plan of Treatment Not on file documented as of this encounter Visit Diagnoses Not on filedocumented in this encounter Additional Health Concerns Infection Onset Date Last Indicated Resolved Time Ring Surveillance: Maximino. [email or web address] Comment:C.auris Ring Surveillance Flag is placed and removed manually by IP. However, if the patient is discharged before their swab is collected, it will remain on a patient's chart for 7 days after discharge in case the patient is re-admitted elsewhere. Pt is undergoing Ring Surveillance for admission to [address] [place] [address]. 03/28/2025 03/28/2025 04/01/2025 6:12 PM C DT C. difficile suspected 03/29/2025 03/29/202503/29 10:52 PM CDT Ring Surveillance: C. [email or web address] Comment:This flag is used to identify patient who are in house who are being monitored by Infection Prevention. If the patient is discharged and a swab has not been collected, if patient returns to hospital within 7 days a surveillance swab is to be collected (Reach out to IP for order) Patient does NOT need isolation, patient can travel off the floor. 04/02/2025 04/02/2025 04/25/2025 3:40 PM CDT COVID: Suspected 05/05/2025 05/05/2025 05/05/2025 6:54 PM CDT C. difficile suspected 05/06/2025 05/06/202505/07 5:48 AM CDT VRE 05/06/2025 05/06/2025 documented as of this encounter Care Teams [place] Aide Relationship Specialty Start Date End Date Nikunj Sandoval MD [employer] [facility] [place] [id number] PCP - General Family Medicine 04/17/24 documented as of this encounter
--- OUTSIDE RECORDS SUMMARY | 2025-05-31 12:09 | XMS_ITS | Clinical Summary ---
Author Organization [facility] Address [address] [place] [address] Care Team Providers Care Corporate Strategy Analyst Name Role Phone Nikunj Sandoval MD Primary Care Provider [phone] Allergies Active Allergy Reactions Criticality Noted Date Comments Adhesive Tape-Silicones Blisters High Reaction: BLISTERS, , Benzoin Rash Medium Cefuroxime Axetil Anaphylaxis,Swelling , Wheezing,Vomiting High Cefuroxime Anaphylaxis High This is ceftin Medroxyprogesterone Headache Low Reaction: Headache, This is Provera Methyldopa Shortness of breath High This is Aldomet Medications acetaminophen (TYLENOL) 325 mg tablet Take 2 tablets (650 mg total) by mouth every 6 (six) hours as needed for pain Active glucagon 1 mg kit Inject 1 mL (1 mg total) into the muscle as instructed every 30 (thirty) minutes as needed (blood glucose less than 70 mg/dL AND no IV access AND unable to take PO glucose/juice.) Active atorvastatin (LIPITOR) 40 mg tablet Take 1 tablet (40 mg total) by mouth nightly 30 tablet 2025 Active aspirin 81 mg enteric coated tablet Take 1 tablet (81 mg total) by mouth daily 2025 Active fluticasone furoate-vilantero L (BREO ELLIPTA) 200-25 mcg/dose diskus inhaler Inhale 1 puff daily Rinse mouth with water after use. Do not swallow. Active levothyroxine (SYNTHROID) 175 mcg tablet Take 1 tablet (175 mcg total) by mouth shellac polisher before breakfast Active triamcinolone (KENALOG) 0.1 % cream Apply topically 2 (two) times a day Active rOPINIRole (REQUIP) 0.5 mg tablet Take 3 tablets (1.5 mg total) by mouth nightly 90 tablet 2025 Active senna-docusate (PERICOLACE) 8.6-50 mg Take 1 tablet by mouth 2 (two) times a day as needed for constipation Active potassium chloride ER (KLOR-CON) 10 mEq CR tablet Take 1 tablet/capsule (10 mEq total) by mouth 2 (two) times a day [address] (PROTONIX) 40 mg EC tablet Take 1 tablet (40 mg total) by mouth 2 (two) times a day 2025 Active magnesium oxide (MAG-OX) 400 mg (241.3 mg elemental magnesium) tablet Take 1 tablet (400 mg total) by mouth daily 30 tablet 2025 Active metoprolol XL (TOPROL-XL) 50 mg extended release tablet Take 1 tablet (50 mg total) by mouth daily 2025 Active loperamide (IMODIUM) 2 mg capsule Take 1 capsule (2 mg total) by mouth 4 (four) times a day as needed for diarrhea (1st line for diarrhea) 30 capsule Active albuterol 2.5 mg /3 mL (0.083 %) nebulizer solution Take 6 mL (5 mg total) by nebulization 2 (two) times a day Active albuterol HFA (PROVENTIL HFA,VENTOLIN HFA,PROAIR HFA) 90 mcg/actuation inhaler Inhale 2 puffs every 6 (six) hours as needed for wheezing or shortness of breath Active oxyCODONE (ROXICODONE) 5 mg immediate release tabletIndications :Pain Take 1 tablet (5 mg total) by mouth every 4 (four) hours as needed for pain for up to 3 days 12 tablet Active ondansetron ODT (ZOFRAN-ODT) 4 mg disintegrating tablet Dissolve 1 tablet oral every 4 hours as needed for nausea or vomiting. 15 tablet Active insulin lispro (HumaLOG, ADMELOG) 100 unit/mL pen for injection Inject 1-5 units under the skin 3 (three) times a day with meals. Blood glucose mg/dL 150-199: 1 unit, 200-249: 2 units, 250-299: 3 units, 300-349: 4 units, 350 or greater: 5 units. Notify provider for blood glucose greater than 299 mg/dL. Refer to After Visit Summary for Sliding Scale Insulin Instructions. 15 mL Active insulin glargine 100 unit/mL (3 mL) pen for injection Inject 10 Units under the skin 2 (two) times a day 15 mL Active dicyclomine (BENTYL) 20 mg tablet Take 1 tablet (20 mg total) by mouth 4 (four) times a day before meals and nightly 120 tablet 2024 Active Dulera 200-5 mcg/actuation inhaler Active HumaLOG 200 unit/mL (3 mL) pen for injection Active furosemide (LASIX) 40 mg tablet Take 2 tablets (80 mg total) by mouth 2 (two) times a day 60 tablet 6 2025 Active amLODIPine (NORVASC) 5 mg tablet Take 1 tablet (5 mg total) by mouth daily 90 tablet 6 2024 Active atropine 1 mg/mL injection Infuse 0.4 mL (0.4 mg total) IV once as needed (symptomatic bradycardia) for 1 minutes for up to 1 dose 2024 Discontinued(S top Taking at Discharge) fentaNYL 2500 mcg/50 mL (50 mcg/mL) Infuse 0-400 mcg/hr IV as directed at 0-8 mL/hr 2024 Discontinued(S top Taking at Discharge) insulin regular in 0.9% sodium chloride (MYXREDLIN) 100 unit/100 mL (1 unit/mL) solutionIndicatio ns:Hyperglycemia Infuse 0-30 Units/hr IV as directed at 0-30 mL/hr 025 2024 Discontinued(S top Taking at Discharge) norepinephrine in dextrose 5% (LEVOPHED) 8,000 mcg/250 mL (32 mcg/mL) solution Infuse 0-213 mcg/min IV as directed at 0-399.38 mL/hr 025 2024 Discontinued(S top Taking at Discharge) ondansetron (ZOFRAN) 4 mg/2 mL injectionIndicati ons:nausea and vomiting Infuse 2 mL (4 mg total) IV every 6 (six) hours as needed for nausea or vomiting for 2 minutes 2024 Discontinued(S top Taking at Discharge) pantoprazole 40 mg in sodium chloride 0.9% 10 mL IVPBIndications:S tress Ulcer Prophylaxis Infuse 10 mL (40 mg total) IV daily for 2 minutes at 300 mL/hr 025 2024 Discontinued(S top Taking at Discharge) polyethylene glycol (MIRALAX) 17 gram packetIndications :constipation Take 1 packet (17 g total) by mouth daily as needed for constipation 2024 Discontinued(S top Taking at Discharge) vasopressin in 5% dextrose (VASOSTRICT) 20 unit/100 mL (0.2 unit/mL) Infuse 0.06 Units/min IV continuously at 18 mL/hr 025 2024 Discontinued(S top Taking at Discharge) apixaban (ELIQUIS) 5 mg tabletIndications :atrial fibrillation Take 1 tablet (5 mg total) by mouth 2 (two) times a day 60 tablet 025 2024 Discontinued(S top Taking at Discharge) furosemide (LASIX) 80 mg tablet Take 1 tablet (80 mg total) by mouth 2 (two) times a day 60 tablet 11 025 2024 Discontinued(S top Taking at Discharge) insulin lispro (HumaLOG, ADMELOG) 100 unit/mL vial for injection Inject 12 Units under the skin 3 (three) times a day before meals (plus blood glucose mg/dL 150-199: 1 unit, 200-249: 2 units, 250-299: 3 units, 300 or greater: 4 units, 350 or greater: 5 units. Notify provider for blood glucose greater than 299 mg/dL. Refer to After Visit Summary for Sliding Scale Insulin Instructions. 025 2024 Discontinued(S top Taking at Discharge) furosemide (LASIX) 80 mg tablet Take 1 tablet (80 mg total) by mouth 2 (two) times a day 2024 Discontinued insulin glargine (LANTUS, SEMGLEE) 100 unit/mL vial for injectionIndicati ons:Diabetes Mellitus Inject 23 Units under the skin 2 (two) times a day 2024 Discontinued(S top Taking at Discharge) insulin lispro (HumaLOG, ADMELOG) 100 unit/mL pen for injection Inject 12 Units under the skin 3 (three) times a day with meals 2024 Discontinued(S top Taking at Discharge) lidocaine (LIDODERM) 5 % Place 1 patch on the skin daily for 12 hours Remove & discard patch within 12 hours or as directed by MD. 025 2024 Discontinued(S top Taking at Discharge) lidocaine (LIDODERM) 5 % Place 2 patches on the skin daily for 12 hours Remove & discard patch within 12 hours or as directed by MD. 025 2024 Discontinued(S top Taking at Discharge) allopurinoL (ZYLOPRIM) 100 mg tablet Take 1 tablet (100 mg total) by mouth daily 025 2024 Discontinued(S top Taking at Discharge) celecoxib (CeleBREX) 200 mg capsule Take 1 capsule (200 mg total) by mouth 2 (two) times a day 025 2024 Discontinued(S top Taking at Discharge) clopidogreL (PLAVIX) 75 mg tablet Take 1 tablet (75 mg total) by mouth daily 025 2024 Discontinued(S top Taking at Discharge) Jardiance 25 mg tablet Take 1 tablet (25 mg total) by mouth daily 025 2024 Discontinued(S top Taking at Discharge) amLODIPine (NORVASC) 5 mg tablet Take 1 tablet (5 mg total) by mouth daily 30 tablet 025 2024 Discontinued Active Problems Problem Noted Date Diagnosed Date Abdominal pain 05/20/2025 Fever 05/06/2025 Assessment & Plan (05/10/2025 7:59 AM CDT): Spiked fever to 101.1 on 05/05 also with some tachycardia to 100, and elevated RR. No new o2 requirement and normotensive. Labs without leukocytosis or lactate elevation but does show mildly elevated tBili and AST which she has had previously. Inflammatory markers elevated. Has been having diarrhea, and dysuria for several days. Ddx includes bacteremia vs UTI vs abd infection. Pt with anaphylaxsis allergy to cefuroxime. Previous UTI with UCx with Ecoli-tx with bactrim starting 04/07 - 04/09, dc with hyperkalemia, [facility] (04/09-04/14) . Previously susceptible to macrobid. DDx UTI vs PNA vs cholecystitis vs GI infection vs other -BCx x2 NGTD -RPP negative -CXR similar to previous without infectious signs -UA sent - negative. Patient believes burning is from frequent wiping from BM's -c diff negative and stool culture pending from 05/06 Assessment & Plan (05/09/2025 7:59 AM CDT): Spiked fever to 101.1 on 05/05 also with some tachycardia to 100, and elevated RR. No new o2 requirement and normotensive. Labs without leukocytosis or lactate elevation but does show mildly elevated tBili and AST which she has had previously. Inflammatory markers elevated. Has been having diarrhea, and dysuria for several days. Ddx includes bacteremia vs UTI vs abd infection. Pt with anaphylaxsis allergy to cefuroxime. Previous UTI with UCx with Ecoli-tx with bactrim starting 04/07 - 04/09, dc with hyperkalemia, [facility] (04/09-04/14) . Previously susceptible to macrobid. DDx UTI vs PNA vs cholecystitis vs GI infection vs other -BCx x2 NGTD -RPP negative -CXR similar to previous without infectious signs -UA sent - negative. Patient believes burning is from frequent wiping from BM's -c diff negative and stool culture pending from 05/06 Assessment & Plan (05/08/2025 7:40 AM CDT): Spiked fever to 101.1 on 05/05 also with some tachycardia to 100, and elevated RR. No new o2 requirement and normotensive. Labs without leukocytosis or lactate elevation but does show mildly elevated tBili and AST which she has had previously. Inflammatory markers elevated. Has been having diarrhea, and dysuria for several days. Ddx includes bacteremia vs UTI vs abd infection. Pt with anaphylaxsis allergy to cefuroxime. Previous UTI with UCx with Ecoli-tx with bactrim starting 04/07 - 04/09, dc with hyperkalemia, [facility] (04/09-04/14) . Previously susceptible to macrobid. DDx UTI vs PNA vs cholecystitis vs GI infection vs other -BCx x2 NGTD -RPP negative -CXR similar to previous without infectious signs -UA sent - negative. Patient believes burning is from frequent wiping from BM's -c diff negative and stool culture pending from 05/06 Assessment & Plan (05/07/2025 1:58 PM CDT): Spiked fever to 101.1 on 05/05 also with some tachycardia to 100, and elevated RR. No new o2 requirement and normotensive. Labs without leukocytosis or lactate elevation but does show mildly elevated tBili and AST which she has had previously. Inflammatory markers elevated. Has been having diarrhea, and dysuria for several days. Ddx includes bacteremia vs UTI vs abd infection. Pt with anaphylaxsis allergy to cefuroxime. Previous UTI with UCx with Ecoli-tx with bactrim starting 04/07 - 04/09, dc with hyperkalemia, [facility] (04/09-04/14) . Previously susceptible to macrobid. -BCx x2 NGTD -RPP negative -CXR similar to previous without infectious signs -UA sent - negative. Patient believes burning is from frequent wiping from BM's -c diff negative and stool culture pending Assessment & Plan (05/06/2025 4:49 PM CDT): Spiked fever to 101.1 on 05/05 also with some tachycardia to 100, and elevated RR. No new o2 requirement and normotensive. Labs without leukocytosis or lactate elevation but does show mildly elevated tBili and AST which she has had previously. Inflammatory markers elevated. Has been having diarrhea, and dysuria for several days. Ddx includes bacteremia vs UTI vs abd infection. Pt with anaphylaxsis allergy to cefuroxime. Previous UTI with UCx with Ecoli-tx with bactrim starting 04/07 - 04/09, dc with hyperkalemia, [facility] (04/09-04/14) . Previously susceptible to macrobid. -BCx x2 NGTD -RPP negative -CXR similar to previous without infectious signs -UA sent, follow up culture, possibly start macrobid if infectious -c diff and stool culture ordered RUQ pain 05/06/2025 Assessment & Plan (05/10/2025 7:59 AM CDT): Reports RUQ ttp on 05/06 which she is unclear how long has been ttp. Does not have pain at rest or with eating. Febrile on 05/05. Mildly elevated tBili and AST. -RUQ US with nonmobile stone at the gallbladder neck and elevated cystic artery velocity, suspicious for gallbladder inflammation of indeterminate chronicity. Also has sludge. -HIDA scan with normal biliary imaging -ACCS consulted, appreciate recs -no concern for acute cholecystitis, surgery no indicated Assessment & Plan (05/09/2025 7:59 AM CDT): Reports RUQ ttp on 05/06 which she is unclear how long has been ttp. Does not have pain at rest or with eating. Febrile on 05/05. Mildly elevated tBili and AST. -RUQ US with nonmobile stone at the gallbladder neck and elevated cystic artery velocity, suspicious for gallbladder inflammation of indeterminate chronicity. Also has sludge. -HIDA scan with normal biliary imaging -ACCS consulted, appreciate recs -no concern for acute cholecystitis, surgery no indicated Assessment & Plan (05/08/2025 7:40 AM CDT): Reports RUQ ttp on 05/06 which she is unclear how long has been ttp. Does not have pain at rest or with eating. Febrile on 05/05. Mildly elevated tBili and AST. -RUQ US with nonmobile stone at the gallbladder neck and elevated cystic artery velocity, suspicious for gallbladder inflammation of indeterminate chronicity. Also has sludge. -HIDA scan with normal biliary imaging -ACCS consulted, appreciate recs -no concern for acute cholecystitis, surgery no indicated Assessment & Plan (05/07/2025 1:56 PM CDT): Reports RUQ ttp on 05/06 which she is unclear how long has been ttp. Does not have pain at rest or with eating. Febrile on 05/05. Mildly elevated tBili and AST. -RUQ US with nonmobile stone at the gallbladder neck and elevated cystic artery velocity, suspicious for gallbladder inflammation of indeterminate chronicity. Also has sludge. -HIDA scan ordered -ACCS consulted, appreciate recs Assessment & Plan (05/06/2025 4:49 PM CDT): Reports RUQ ttp on 05/06 which she is unclear how long has been ttp. Does not have pain or rest. Febrile on 05/05. Mildly elevated tBili and AST. -RUQ US with nonmobile stone at the gallbladder neck and elevated cystic artery velocity, suspicious for gallbladder inflammation of indeterminate chronicity. Also has sludge. -HIDA scan ordered Temperature increase 05/05/2025 Assessment & Plan (05/05/2025 3:19 PM CDT): Not febrile but trending up, 99.5 last night. 99.7 today. No report of dysuria --Continue to follow WBC --IS Assessment & Plan (05/05/2025 3:50 PM CDT): Monitoring Has a DVT and has an IVC filter, unable to anticoagulate. Recent pneumonia. Right lobe of lung is decreased Repeat CBC in AM Monitor temps, for new symptoms Repeat Chest x-ray in AM. If new fever, consider chest CT Pleural effusion 05/03/2025 Assessment & Plan (05/10/2025 7:59 AM CDT): IMPROVING Acute respiratory failure multifactorial. Now off oxygen Baseline Asthma and ERIKA on CPAP. Post shock/PEA arrest requiring intubation 03/26-03/30 c/b pneumonia bilateral pneumothorax. 2/2 compressions after PEA arrest 03/27 s/p placement of bilateral chest tubes - chest tubes removed 04/02 & F/U Chest x-ray stable Chest tube management-now Dc'd 05/02 Increased diuretics from 40 lasix po BID to 40 IV BID 05/02 Bilateral pleural effusions on x-ray 05/01 and new oxygen requirement 05/02. 1.3 L out, goal 1.5-2 L but overall +220ml. Repeat chest x-ray decreased effusions. Restricting fluids to <1.5L. 05/03 Urine output 950 documented but blood pressure stable with diuresis, improving. Follow electrolytes, replaced mag and potassium as needed 05/04 Increased Lasix from 40 BID to 60 BID IV 05/05 Lasix 80mg PO BID PLAN - Home inhalers: Breo in place of Dulera (not in formulary), continue scheduled albuterol nebs - Resume home [id number] adherent to treatment - IS --Follow up CXR in AM, lung sounds decreased on the RLL --Follow up CT if new symptoms Assessment & Plan (05/09/2025 7:59 AM CDT): IMPROVING Acute respiratory failure multifactorial. Now off oxygen Baseline Asthma and ERIKA on CPAP. Post shock/PEA arrest requiring intubation 03/26-03/30 c/b pneumonia bilateral pneumothorax. 2/2 compressions after PEA arrest 03/27 s/p placement of bilateral chest tubes - chest tubes removed 04/02 & F/U Chest x-ray stable Chest tube management-now Dc'd 05/02 Increased diuretics from 40 lasix po BID to 40 IV BID 05/02 Bilateral pleural effusions on x-ray 05/01 and new oxygen requirement 05/02. 1.3 L out, goal 1.5-2 L but overall +220ml. Repeat chest x-ray decreased effusions. Restricting fluids to <1.5L. 05/03 Urine output 950 documented but blood pressure stable with diuresis, improving. Follow electrolytes, replaced mag and potassium as needed 05/04 Increased Lasix from 40 BID to 60 BID IV 05/05 Lasix 80mg PO BID PLAN - Home inhalers: Breo in place of Dulera (not in formulary), continue scheduled albuterol nebs - Resume home [id number] adherent to treatment - IS --Follow up CXR in AM, lung sounds decreased on the RLL --Follow up CT if new symptoms Assessment & Plan (05/08/2025 7:40 AM CDT): IMPROVING Acute respiratory failure multifactorial. Now off oxygen Baseline Asthma and ERIKA on CPAP. Post shock/PEA arrest requiring intubation 03/26-03/30 c/b pneumonia bilateral pneumothorax. 2/2 compressions after PEA arrest 03/27 s/p placement of bilateral chest tubes - chest tubes removed 04/02 & F/U Chest x-ray stable Chest tube management-now Dc'd 05/02 Increased diuretics from 40 lasix po BID to 40 IV BID 05/02 Bilateral pleural effusions on x-ray 05/01 and new oxygen requirement 05/02. 1.3 L out, goal 1.5-2 L but overall +220ml. Repeat chest x-ray decreased effusions. Restricting fluids to <1.5L. 05/03 Urine output 950 documented but blood pressure stable with diuresis, improving. Follow electrolytes, replaced mag and potassium as needed 05/04 Increased Lasix from 40 BID to 60 BID IV 05/05 Lasix 80mg PO BID PLAN - Home inhalers: Breo in place of Dulera (not in formulary), continue scheduled albuterol nebs - Resume home [id number] adherent to treatment - IS --Follow up CXR in AM, lung sounds decreased on the RLL --Follow up CT if new symptoms Assessment & Plan (05/07/2025 7:31 AM CDT): IMPROVING Acute respiratory failure multifactorial. Now off oxygen Baseline Asthma and ERIKA on CPAP. Post shock/PEA arrest requiring intubation 03/26-03/30 c/b pneumonia bilateral pneumothorax. 2/2 compressions after PEA arrest 03/27 s/p placement of bilateral chest tubes - chest tubes removed 04/02 & F/U Chest x-ray stable Chest tube management-now Dc'd 05/02 Increased diuretics from 40 lasix po BID to 40 IV BID 05/02 Bilateral pleural effusions on x-ray 05/01 and new oxygen requirement 05/02. 1.3 L out, goal 1.5-2 L but overall +220ml. Repeat chest x-ray decreased effusions. Restricting fluids to <1.5L. 05/03 Urine output 950 documented but blood pressure stable with diuresis, improving. Follow electrolytes, replaced mag and potassium as needed 05/04 Increased Lasix from 40 BID to 60 BID IV 05/05 Lasix 80mg PO BID PLAN - Home inhalers: Breo in place of Dulera (not in formulary), continue scheduled albuterol nebs - Resume home [id number] adherent to treatment - IS --Follow up CXR in AM, lung sounds decreased on the RLL --Follow up CT if new symptoms Assessment & Plan (05/06/2025 4:49 PM CDT): IMPROVING Acute respiratory failure multifactorial. Now off oxygen Baseline Asthma and ERIKA on CPAP. Post shock/PEA arrest requiring intubation 03/26-03/30 c/b pneumonia bilateral pneumothorax. 2/2 compressions after PEA arrest 03/27 s/p placement of bilateral chest tubes - chest tubes removed 04/02 & F/U Chest x-ray stable Chest tube management-now Dc'd 05/02 Increased diuretics from 40 lasix po BID to 40 IV BID 05/02 Bilateral pleural effusions on x-ray 05/01 and new oxygen requirement 05/02. 1.3 L out, goal 1.5-2 L but overall +220ml. Repeat chest x-ray decreased effusions. Restricting fluids to <1.5L. 05/03 Urine output 950 documented but blood pressure stable with diuresis, improving. Follow electrolytes, replaced mag and potassium as needed 05/04 Increased Lasix from 40 BID to 60 BID IV 05/05 Lasix 80mg PO BID PLAN - Home inhalers: Breo in place of Dulera (not in formulary), continue scheduled albuterol nebs - Resume home [id number] adherent to treatment - IS --Follow up CXR in AM, lung sounds decreased on the RLL --Follow up CT if new symptoms Assessment & Plan (05/05/2025 3:50 PM CDT): IMPROVING Acute respiratory failure multifactorial. Now off oxygen Baseline Asthma and ERIKA on CPAP. Post shock/PEA arrest requiring intubation 03/26-03/30 c/b pneumonia bilateral pneumothorax. 2/2 compressions after PEA arrest 03/27 s/p placement of bilateral chest tubes - chest tubes removed 04/02 & F/U Chest x-ray stable Chest tube management-now Dc'd 05/02 Increased diuretics from 40 lasix po BID to 40 IV BID 05/02 Bilateral pleural effusions on x-ray 05/01 and new oxygen requirement 05/02. 1.3 L out, goal 1.5-2 L but overall +220ml. Repeat chest x-ray decreased effusions. Restricting fluids to <1.5L. 05/03 Urine output 950 documented but blood pressure stable with diuresis, improving. Follow electrolytes, replaced mag and potassium as needed 05/04 Increased Lasix from 40 BID to 60 BID IV 05/05 Lasix 80mg PO BID PLAN - Home inhalers: Breo in place of Dulera (not in formulary), continue scheduled albuterol nebs - Resume home [id number] adherent to treatment - IS --Follow up CXR in AM, lung sounds decreased on the RLL --Follow up CT if new symptoms Assessment & Plan (05/04/2025 10:31 AM CDT): Baseline Asthma and ERIKA on CPAP. Post shock/PEA arrest requiring intubation 03/26-03/30 c/b pneumonia bilateral pneumothorax - chest tube management-now DC'd - Home inhalers: Breo in place of Dulera (not in formulary), continue scheduled albuterol nebs - Resume home [id number] adherent to treatment - IS -Increased O2 requirement overnight, 2L for sat's 90% 05/01 at rest. Weaned off during the day but 88% again overnight so back on 2L 05/02 Increased diuretics from 40 lasix po BID to 40 IV BID 05/02 Bilateral pleural effusions on x-ray 05/01 and new oxygen requirement 05/02. 1.3 L out, goal 1.5-2 L but overall +220ml. Repeat chest x-ray decreased effusions. Restricting fluids to <1.5L. 05/03 Urine output 950 documented but blood pressure stable with diuresis, improving. Follow electrolytes, replaced mag and potassium as needed PLAN --Continue scheduled potassium 10meq BID --Mag 1.5<1.8 after 2G. Continue to follow mag. Receiving mag 400mg daily Assessment & Plan (05/03/2025 1:23 PM CDT): Baseline Asthma and ERIKA on CPAP. Post shock/PEA arrest requiring intubation 03/26-03/30 c/b pneumonia bilateral pneumothorax - chest tube management-now DC'd - Home inhalers: Breo in place of Dulera (not in formulary), continue scheduled albuterol nebs - Resume home [id number] adherent to treatment - IS -Increased O2 requirement overnight, 2L for sat's 90% 05/01 at rest. Weaned off during the day but 88% again overnight so back on 2L -Increased diuretics from 40 lasix po BID to 40 IV BID 05/02 -Bilateral pleural effusions on x-ray 05/01 and new oxygen requirement 05/02. 1.3 L out, goal 1.5-2 L but overall +220ml. Repeating chest x-ray today. Restricting fluids to <1.5L. May need to increase IV diuretics if blood pressure tolerates, 102/58 today (05/03) Thoracentesis if persistent effusion despite diuretics --Follow electrolytes, replace mag and potassium as needed --Scheduled potassium 10meq BID --Mag 1.5<1.8 after 2G. Continue to follow mag. Receiving mag 400mg daily Venous stasis dermatitis 04/29/2025 Assessment & Plan (05/10/2025 7:59 AM CDT): IMPROVING Erythema on right kimbrough-start triamcinolone cream 04/29 and monitor Assessment & Plan (05/09/2025 7:59 AM CDT): IMPROVING Erythema on right kimbrough-start triamcinolone cream 04/29 and monitor Assessment & Plan (05/08/2025 7:40 AM CDT): IMPROVING Erythema on right kimbrough-start triamcinolone cream 04/29 and monitor Assessment & Plan (05/07/2025 1:56 PM CDT): IMPROVING Erythema on right kimbrough-start triamcinolone cream 04/29 and monitor Assessment & Plan (05/06/2025 8:47 AM CDT): IMPROVING Erythema on right kimbrough-start triamcinolone cream 7/14 and monitor Assessment & Plan (05/05/2025 3:50 PM CDT): IMPROVING Erythema on right kimbrough-start triamcinolone cream 7/14 and monitor Assessment & Plan (05/04/2025 10:32 AM CDT): Erythema on right kimbrough-start triamcinolone cream 7/14 and monitor Assessment & Plan (05/03/2025 1:22 PM CDT): Erythema on right kimbrough-start triamcinolone cream 7/14 and monitor Assessment & Plan (05/02/2025 11:01 AM CDT): Erythema on right kimbrough-start triamcinolone cream 7/14 and monitor Assessment & Plan (04/30/2025 5:18 PM CDT): Erythema on right kimbrough-start triamcinolone cream 7/14 and monitor Assessment & Plan (04/29/2025 12:10 PM CDT): Erythema on right kimbrough-start triamcinolone cream 7/14 and monitor Thrush 04/18/2025 Assessment & Plan (05/04/2025 10:32 AM CDT): RESOLVED nystatin s/s 7-3 x 5 days Assessment & Plan (05/03/2025 1:22 PM CDT): RESOLVED nystatin s/s 7-3 x 5 days Assessment & Plan (05/02/2025 11:01 AM CDT): RESOLVED nystatin s/s 7-3 x 5 days Assessment & Plan (04/30/2025 5:18 PM CDT): RESOLVED nystatin s/s 7-3 x 5 days Assessment & Plan (04/29/2025 10:33 AM CDT): nystatin s/s 7-3 x 5 days Assessment & Plan (04/28/2025 11:48 AM CDT): nystatin s/s 7-3 x 5 days Assessment & Plan (04/27/2025 9:58 AM CDT): nystatin s/s 7-3 x 5 days Assessment & Plan (04/26/2025 10:07 AM CDT): nystatin s/s 7-3 x 5 days Assessment & Plan (04/25/2025 10:43 AM CDT): nystatin s/s 7-3 x 5 days Assessment & Plan (04/24/2025 11:01 AM CDT): nystatin s/s 7-3 x 5 days Assessment & Plan (04/23/2025 2:21 PM CDT): Start nystatin s/s 7-3 x 5 days Assessment & Plan (04/23/2025 6:07 AM CDT): Start nystatin s/s 7-3 x 5 days Assessment & Plan (04/21/2025 9:58 AM CDT): Start nystatin s/s 7-3 x 5 days Assessment & Plan (04/20/2025 2:26 PM CDT): Start nystatin s/s 7-3 x 5 days Assessment & Plan (04/19/2025 12:35 PM CDT): Start nystatin s/s 7-3 x 5 days Assessment & Plan (04/18/2025 7:47 PM CDT): Start nystatin s/s 7-3 x 5 days DVT (deep venous thrombosis) 04/17/2025 Assessment & Plan (05/10/2025 7:59 AM CDT): STABLE LED 6/30 with makenna LE DVT, unable to anticoagulate given significant GI bleed: s/p IVC filter on -30 --On ASA 81mg daily --Diuresing with LE edema and pleural effusions Assessment & Plan (05/09/2025 7:59 AM CDT): STABLE LED 6/30 with makenna LE DVT, unable to anticoagulate given significant GI bleed: s/p IVC filter on 630 --On ASA 81mg daily --Diuresing with LE edema and pleural effusions Assessment & Plan (05/08/2025 7:40 AM CDT): STABLE LED 6/ with makenna LE DVT, unable to anticoagulate given significant GI bleed: s/p IVC filter on 04-15 --On ASA 81mg daily --Diuresing with LE edema and pleural effusions Assessment & Plan (05/07/2025 7:31 AM CDT): STABLE LED 6 with makenna LE DVT, unable to anticoagulate given significant GI bleed: s/p IVC filter on 04-15 --On ASA 81mg daily --Diuresing with LE edema and pleural effusions Assessment & Plan (05/06/2025 4:49 PM CDT): STABLE LED 6 with makenna LE DVT, unable to anticoagulate given significant GI bleed: s/p IVC filter on 04-15 --On ASA 81mg daily --Diuresing with LE edema and pleural effusions Assessment & Plan (05/05/2025 3:50 PM CDT): STABLE LED 6/30 with makenna LE DVT, unable to anticoagulate given significant GI bleed: s/p IVC filter on 30 --On ASA 81mg daily --Diuresing with LE edema and pleural effusions Assessment & Plan (05/04/2025 10:31 AM CDT): LED 6/30 with makenna LE DVT, unable to anticoagulate given significant GI bleed: s/p IVC filter on 04-15 --On ASA 81mg daily Assessment & Plan (05/03/2025 1:22 PM CDT): LED 6/30 with makenna LE DVT, unable to anticoagulate given significant GI bleed: s/p IVC filter on 04-15 --On ASA 81mg daily Assessment & Plan (05/02/2025 11:00 AM CDT): LED 6/30 with makenna LE DVT, unable to anticoagulate given significant GI bleed: s/p IVC filter on 04-15 --On ASA 81mg daily Assessment & Plan (04/30/2025 5:18 PM CDT): LED 6 with makenna LE DVT, unable to anticoagulate given significant GI bleed: s/p IVC filter on 04-15 --On ASA 81mg daily Assessment & Plan (04/29/2025 10:33 AM CDT): LED 6/30 with makenna LE DVT, unable to anticoagulate given significant GI bleed: s/p IVC filter on 04-15 Assessment & Plan (04/28/2025 11:48 AM CDT): LED 6 with makenna LE DVT, unable to anticoagulate given significant GI bleed: s/p IVC filter on 04-15 Assessment & Plan (04/27/2025 9:58 AM CDT): LED 6/ with makenna LE DVT, unable to anticoagulate given significant GI bleed: s/p IVC filter on 04-15 Assessment & Plan (04/26/2025 10:07 AM CDT): LED 6/30 with makenna LE DVT, unable to anticoagulate given significant GI bleed: s/p IVC filter on 04-15 Assessment & Plan (04/25/2025 10:43 AM CDT): LED 6/30 with makenna LE DVT, unable to anticoagulate given significant GI bleed: s/p IVC filter on 04-15 Assessment & Plan (04/24/2025 11:01 AM CDT): LED 6/ with makenna LE DVT, unable to anticoagulate given significant GI bleed: s/p IVC filter on 04-15 Assessment & Plan (04/23/2025 2:21 PM CDT): LED 6/ with makenna LE DVT, unable to anticoagulate given significant GI bleed: s/p IVC filter on 04-15 Assessment & Plan (04/23/2025 6:07 AM CDT): LED 6 with makenna LE DVT, unable to anticoagulate given significant GI bleed: s/p IVC filter on 04-15 Assessment & Plan (04/21/2025 8:10 PM CDT): LED 6 with makenna LE DVT, unable to anticoagulate given significant GI bleed: s/p IVC filter on 04-15 Assessment & Plan (04/20/2025 2:26 PM CDT): LED 6 with makenna LE DVT, unable to anticoagulate given significant GI bleed: s/p IVC filter on 04-15 Assessment & Plan (04/19/2025 12:35 PM CDT): LED 6 with makenna LE DVT, unable to anticoagulate given significant GI bleed: s/p IVC filter on 04-15 Assessment & Plan (04/18/2025 4:09 PM CDT): LED 6 with makenna LE DVT, unable to anticoagulate given significant GI bleed: s/p IVC filter on 04-15 Assessment & Plan (04/18/2025 12:22 AM CDT): LED 6 with makenna LE DVT, unable to anticoagulate given significant GI bleed: s/p IVC filter on 04-15 Assessment & Plan (04/17/2025 1:47 AM CDT): LED 6/ with makenna LE DVT, unable to anticoagulate gven significant GI bleed: s/p IVC filter on 04-15 Diverticula of colon 04/13/2025 Assessment & Plan (05/10/2025 7:59 AM CDT): Patient with bloody liquid from rectum late afternoon 04/07. Following Hgb 10.4->10.1->9.9->9.4->9.6. CTA of abd-pelvis did not reveal active bleeding source but lots of stool and what appeared to be stool ball in rectum. Digital exam did not reach stool but large amount of clotted blood in rectum. Start miralax TID and try to clear stool. GI consult on board with no plan to scope. - 04/08 given tap water and mineral oil enema, but no BM - 04/09 check KUB: Stool is again noted within the rectum, huge but bloody bowel movement after hypaque enema, Hgb trended down to 6.7, receive 1 unit prbc - 04/10 Hgb 8.3, sigmoidoscopy Preparation of the colon was inadequate. Blood and clots seen in recto-sigmoid colon. Ulcerated, ooozing mucosa in the distal rectum. Treated with goldprobe. Hemostatic spray applied. Avoid AC and ASA for 2 days per GI. Avoid enema, continue PO bowel regimen - 04/11 continued rectal bleed, Hgb down to 6.6, given prbc, d/w GI and consulted CRS - limited options, gelfoam soaked with epi plug per rectum applied, not surgical candidate. Continue huge/large bleeding with dark blood and large clots, given 3 units prbc and 1 unit platelet to help with hemostasis (as still within 5 days after Plavix held), Hgb maintained between 8-9.6, BP stable. See significant event notes 04/12 Colonoscopy done: Clotted blood was found in the rectum. A large area of ulcerated mucosa was found in the rectum with adherent clot. Oozing was present. The clot was not removed. To stop active bleeding, hemostatic spray was deployed. Two sprays were applied. There was no bleeding at the end of the procedure. Multiple small-mouthed diverticula were found in the sigmoid colon. Multiple polyps were seen in the colon throughout the procedure. Avoid fecal management devices or any enemas x 48 hours. Consider sucralfate enemas after 48 hours to aid in ulcer healing. Repeat colonoscopy non-urgently when patient is out of the hospital for polypectomy. Monitor, start clear diet, continue every 6 hrs CBC 04/15 Still with moderate amount of bleeding with dark blood and clots, Hgb however is stable, noticed slowed down with NPO, patient no appetite and prefer to be NPO for now and monitor Gradually increased diet from 04/16-04/24 Consider resumption of plavix. Cardiology consult advised no plavix, start ECASA 81mg Blood count stable since starting aspirin Planning eventual polypectomy with GI as an outpatient. Had a BM 05/05 --Continue Miralax/senna prn Assessment & Plan (05/09/2025 7:59 AM CDT): Patient with bloody liquid from rectum late afternoon 04/07. Following Hgb 10.4->10.1->9.9->9.4->9.6. CTA of abd-pelvis did not reveal active bleeding source but lots of stool and what appeared to be stool ball in rectum. Digital exam did not reach stool but large amount of clotted blood in rectum. Start miralax TID and try to clear stool. GI consult on board with no plan to scope. - 04/08 given tap water and mineral oil enema, but no BM - 04/09 check KUB: Stool is again noted within the rectum, huge but bloody bowel movement after hypaque enema, Hgb trended down to 6.7, receive 1 unit prbc - 04/10 Hgb 8.3, sigmoidoscopy Preparation of the colon was inadequate. Blood and clots seen in recto-sigmoid colon. Ulcerated, ooozing mucosa in the distal rectum. Treated with goldprobe. Hemostatic spray applied. Avoid AC and ASA for 2 days per GI. Avoid enema, continue PO bowel regimen - 04/11 continued rectal bleed, Hgb down to 6.6, given prbc, d/w GI and consulted CRS - limited options, gelfoam soaked with epi plug per rectum applied, not surgical candidate. Continue huge/large bleeding with dark blood and large clots, given 3 units prbc and 1 unit platelet to help with hemostasis (as still within 5 days after Plavix held), Hgb maintained between 8-9.6, BP stable. See significant event notes 04/12 Colonoscopy done: Clotted blood was found in the rectum. A large area of ulcerated mucosa was found in the rectum with adherent clot. Oozing was present. The clot was not removed. To stop active bleeding, hemostatic spray was deployed. Two sprays were applied. There was no bleeding at the end of the procedure. Multiple small-mouthed diverticula were found in the sigmoid colon. Multiple polyps were seen in the colon throughout the procedure. Avoid fecal management devices or any enemas x 48 hours. Consider sucralfate enemas after 48 hours to aid in ulcer healing. Repeat colonoscopy non-urgently when patient is out of the hospital for polypectomy. Monitor, start clear diet, continue every 6 hrs CBC 04/15 Still with moderate amount of bleeding with dark blood and clots, Hgb however is stable, noticed slowed down with NPO, patient no appetite and prefer to be NPO for now and monitor Gradually increased diet from 04/16-04/24 Consider resumption of plavix. Cardiology consult advised no plavix, start ECASA 81mg Blood count stable since starting aspirin Planning eventual polypectomy with GI as an outpatient. Had a BM 05/05 --Continue Miralax/senna prn Assessment & Plan (05/08/2025 7:40 AM CDT): Patient with bloody liquid from rectum late afternoon 04/07. Following Hgb 10.4->10.1->9.9->9.4->9.6. CTA of abd-pelvis did not reveal active bleeding source but lots of stool and what appeared to be stool ball in rectum. Digital exam did not reach stool but large amount of clotted blood in rectum. Start miralax TID and try to clear stool. GI consult on board with no plan to scope. - 04/08 given tap water and mineral oil enema, but no BM - 04/09 check KUB: Stool is again noted within the rectum, huge but bloody bowel movement after hypaque enema, Hgb trended down to 6.7, receive 1 unit prbc - 04/10 Hgb 8.3, sigmoidoscopy Preparation of the colon was inadequate. Blood and clots seen in recto-sigmoid colon. Ulcerated, ooozing mucosa in the distal rectum. Treated with goldprobe. Hemostatic spray applied. Avoid AC and ASA for 2 days per GI. Avoid enema, continue PO bowel regimen - 04/11 continued rectal bleed, Hgb down to 6.6, given prbc, d/w GI and consulted CRS - limited options, gelfoam soaked with epi plug per rectum applied, not surgical candidate. Continue huge/large bleeding with dark blood and large clots, given 3 units prbc and 1 unit platelet to help with hemostasis (as still within 5 days after Plavix held), Hgb maintained between 8-9.6, BP stable. See significant event notes 04/12 Colonoscopy done: Clotted blood was found in the rectum. A large area of ulcerated mucosa was found in the rectum with adherent clot. Oozing was present. The clot was not removed. To stop active bleeding, hemostatic spray was deployed. Two sprays were applied. There was no bleeding at the end of the procedure. Multiple small-mouthed diverticula were found in the sigmoid colon. Multiple polyps were seen in the colon throughout the procedure. Avoid fecal management devices or any enemas x 48 hours. Consider sucralfate enemas after 48 hours to aid in ulcer healing. Repeat colonoscopy non-urgently when patient is out of the hospital for polypectomy. Monitor, start clear diet, continue every 6 hrs CBC 04/15 Still with moderate amount of bleeding with dark blood and clots, Hgb however is stable, noticed slowed down with NPO, patient no appetite and prefer to be NPO for now and monitor Gradually increased diet from 04/16-04/24 Consider resumption of plavix. Cardiology consult advised no plavix, start ECASA 81mg Blood count stable since starting aspirin Planning eventual polypectomy with GI as an outpatient. Had a BM 05/05 --Continue Miralax/senna prn Assessment & Plan (05/07/2025 7:31 AM CDT): Patient with bloody liquid from rectum late afternoon 04/07. Following Hgb 10.4->10.1->9.9->9.4->9.6. CTA of abd-pelvis did not reveal active bleeding source but lots of stool and what appeared to be stool ball in rectum. Digital exam did not reach stool but large amount of clotted blood in rectum. Start miralax TID and try to clear stool. GI consult on board with no plan to scope. - 04/08 given tap water and mineral oil enema, but no BM - 04/09 check KUB: Stool is again noted within the rectum, huge but bloody bowel movement after hypaque enema, Hgb trended down to 6.7, receive 1 unit prbc - 04/10 Hgb 8.3, sigmoidoscopy Preparation of the colon was inadequate. Blood and clots seen in recto-sigmoid colon. Ulcerated, ooozing mucosa in the distal rectum. Treated with goldprobe. Hemostatic spray applied. Avoid AC and ASA for 2 days per GI. Avoid enema, continue PO bowel regimen - 04/11 continued rectal bleed, Hgb down to 6.6, given prbc, d/w GI and consulted CRS - limited options, gelfoam soaked with epi plug per rectum applied, not surgical candidate. Continue huge/large bleeding with dark blood and large clots, given 3 units prbc and 1 unit platelet to help with hemostasis (as still within 5 days after Plavix held), Hgb maintained between 8-9.6, BP stable. See significant event notes 04/12 Colonoscopy done: Clotted blood was found in the rectum. A large area of ulcerated mucosa was found in the rectum with adherent clot. Oozing was present. The clot was not removed. To stop active bleeding, hemostatic spray was deployed. Two sprays were applied. There was no bleeding at the end of the procedure. Multiple small-mouthed diverticula were found in the sigmoid colon. Multiple polyps were seen in the colon throughout the procedure. Avoid fecal management devices or any enemas x 48 hours. Consider sucralfate enemas after 48 hours to aid in ulcer healing. Repeat colonoscopy non-urgently when patient is out of the hospital for polypectomy. Monitor, start clear diet, continue every 6 hrs CBC 04/15 Still with moderate amount of bleeding with dark blood and clots, Hgb however is stable, noticed slowed down with NPO, patient no appetite and prefer to be NPO for now and monitor Gradually increased diet from 04/16-04/24 Consider resumption of plavix. Cardiology consult advised no plavix, start ECASA 81mg Blood count stable since starting aspirin Planning eventual polypectomy with GI as an outpatient. Had a BM 05/05 --Continue Miralax/senna prn Assessment & Plan (05/06/2025 4:49 PM CDT): Patient with bloody liquid from rectum late afternoon 04/07. Following Hgb 10.4->10.1->9.9->9.4->9.6. CTA of abd-pelvis did not reveal active bleeding source but lots of stool and what appeared to be stool ball in rectum. Digital exam did not reach stool but large amount of clotted blood in rectum. Start miralax TID and try to clear stool. GI consult on board with no plan to scope. - 04/08 given tap water and mineral oil enema, but no BM - 04/09 check KUB: Stool is again noted within the rectum, huge but bloody bowel movement after hypaque enema, Hgb trended down to 6.7, receive 1 unit prbc - 04/10 Hgb 8.3, sigmoidoscopy Preparation of the colon was inadequate. Blood and clots seen in recto-sigmoid colon. Ulcerated, ooozing mucosa in the distal rectum. Treated with goldprobe. Hemostatic spray applied. Avoid AC and ASA for 2 days per GI. Avoid enema, continue PO bowel regimen - 04/11 continued rectal bleed, Hgb down to 6.6, given prbc, d/w GI and consulted CRS - limited options, gelfoam soaked with epi plug per rectum applied, not surgical candidate. Continue huge/large bleeding with dark blood and large clots, given 3 units prbc and 1 unit platelet to help with hemostasis (as still within 5 days after Plavix held), Hgb maintained between 8-9.6, BP stable. See significant event notes 04/12 Colonoscopy done: Clotted blood was found in the rectum. A large area of ulcerated mucosa was found in the rectum with adherent clot. Oozing was present. The clot was not removed. To stop active bleeding, hemostatic spray was deployed. Two sprays were applied. There was no bleeding at the end of the procedure. Multiple small-mouthed diverticula were found in the sigmoid colon. Multiple polyps were seen in the colon throughout the procedure. Avoid fecal management devices or any enemas x 48 hours. Consider sucralfate enemas after 48 hours to aid in ulcer healing. Repeat colonoscopy non-urgently when patient is out of the hospital for polypectomy. Monitor, start clear diet, continue every 6 hrs CBC 04/15 Still with moderate amount of bleeding with dark blood and clots, Hgb however is stable, noticed slowed down with NPO, patient no appetite and prefer to be NPO for now and monitor Gradually increased diet from 04/16-04/24 Consider resumption of plavix. Cardiology consult advised no plavix, start ECASA 81mg Blood count stable since starting aspirin Planning eventual polypectomy with GI as an outpatient. Had a BM 05/05 --Continue Miralax/senna prn Assessment & Plan (05/05/2025 3:50 PM CDT): Patient with bloody liquid from rectum late afternoon 04/07. Following Hgb 10.4->10.1->9.9->9.4->9.6. CTA of abd-pelvis did not reveal active bleeding source but lots of stool and what appeared to be stool ball in rectum. Digital exam did not reach stool but large amount of clotted blood in rectum. Start miralax TID and try to clear stool. GI consult on board with no plan to scope. - 04/08 given tap water and mineral oil enema, but no BM - 04/09 check KUB: Stool is again noted within the rectum, huge but bloody bowel movement after hypaque enema, Hgb trended down to 6.7, receive 1 unit prbc - 04/10 Hgb 8.3, sigmoidoscopy Preparation of the colon was inadequate. Blood and clots seen in recto-sigmoid colon. Ulcerated, ooozing mucosa in the distal rectum. Treated with goldprobe. Hemostatic spray applied. Avoid AC and ASA for 2 days per GI. Avoid enema, continue PO bowel regimen - 04/11 continued rectal bleed, Hgb down to 6.6, given prbc, d/w GI and consulted CRS - limited options, gelfoam soaked with epi plug per rectum applied, not surgical candidate. Continue huge/large bleeding with dark blood and large clots, given 3 units prbc and 1 unit platelet to help with hemostasis (as still within 5 days after Plavix held), Hgb maintained between 8-9.6, BP stable. See significant event notes 04/12 Colonoscopy done: Clotted blood was found in the rectum. A large area of ulcerated mucosa was found in the rectum with adherent clot. Oozing was present. The clot was not removed. To stop active bleeding, hemostatic spray was deployed. Two sprays were applied. There was no bleeding at the end of the procedure. Multiple small-mouthed diverticula were found in the sigmoid colon. Multiple polyps were seen in the colon throughout the procedure. Avoid fecal management devices or any enemas x 48 hours. Consider sucralfate enemas after 48 hours to aid in ulcer healing. Repeat colonoscopy non-urgently when patient is out of the hospital for polypectomy. Monitor, start clear diet, continue every 6 hrs CBC 04/15 Still with moderate amount of bleeding with dark blood and clots, Hgb however is stable, noticed slowed down with NPO, patient no appetite and prefer to be NPO for now and monitor Gradually increased diet from 04/16-04/24 Consider resumption of plavix. Cardiology consult advised no plavix, start ECASA 81mg Blood count stable since starting aspirin, 8.8-10.2 in the last 4 days, 9.1 today Planning eventual polypectomy with GI as an outpatient. Had a BM 05/05 --Continue Miralax prn Assessment & Plan (05/04/2025 3:57 PM CDT): Patient with bloody liquid from rectum late afternoon 04/07. Following Hgb 10.4->10.1->9.9->9.4->9.6. CTA of abd-pelvis did not reveal active bleeding source but lots of stool and what appeared to be stool ball in rectum. Digital exam did not reach stool but large amount of clotted blood in rectum. Start miralax TID and try to clear stool. GI consult on board with no plan to scope. - 04/08 given tap water and mineral oil enema, but no BM - 04/09 check KUB: Stool is again noted within the rectum, huge but bloody bowel movement after hypaque enema, Hgb trended down to 6.7, receive 1 unit prbc - 04/10 Hgb 8.3, sigmoidoscopy Preparation of the colon was inadequate. Blood and clots seen in recto-sigmoid colon. Ulcerated, ooozing mucosa in the distal rectum. Treated with goldprobe. Hemostatic spray applied. Avoid AC and ASA for 2 days per GI. Avoid enema, continue PO bowel regimen - 04/11 continued rectal bleed, Hgb down to 6.6, given prbc, d/w GI and consulted CRS - limited options, gelfoam soaked with epi plug per rectum applied, not surgical candidate. Continue huge/large bleeding with dark blood and large clots, given 3 units prbc and 1 unit platelet to help with hemostasis (as still within 5 days after Plavix held), Hgb maintained between 8-9.6, BP stable. See significant event notes 04/12 Colonoscopy done: Clotted blood was found in the rectum. A large area of ulcerated mucosa was found in the rectum with adherent clot. Oozing was present. The clot was not removed. To stop active bleeding, hemostatic spray was deployed. Two sprays were applied. There was no bleeding at the end of the procedure. Multiple small-mouthed diverticula were found in the sigmoid colon. Multiple polyps were seen in the colon throughout the procedure. Avoid fecal management devices or any enemas x 48 hours. Consider sucralfate enemas after 48 hours to aid in ulcer healing. Repeat colonoscopy non-urgently when patient is out of the hospital for polypectomy. Monitor, start clear diet, continue every 6 hrs CBC 04/15 Still with moderate amount of bleeding with dark blood and clots, Hgb however is stable, noticed slowed down with NPO, patient no appetite and prefer to be NPO for now and monitor Gradually increased diet from 04/16-04/24 Consider resumption of plavix. Cardiology consult advised no plavix, start ECASA 81mg Blood count stable since starting aspirin, 8.8-10.2 in the last 4 days, 9.1 today Planning eventual polypectomy with GI as an outpatient. Assessment & Plan (05/03/2025 1:22 PM CDT): Patient with bloody liquid from rectum late afternoon 04/07. Following Hgb 10.4->10.1->9.9->9.4->9.6. CTA of abd-pelvis did not reveal active bleeding source but lots of stool and what appeared to be stool ball in rectum. Digital exam did not reach stool but large amount of clotted blood in rectum. Start miralax TID and try to clear stool. GI consult on board with no plan to scope. - 04/08 given tap water and mineral oil enema, but no BM - 04/09 check KUB: Stool is again noted within the rectum, huge but bloody bowel movement after hypaque enema, Hgb trended down to 6.7, receive 1 unit prbc - 04/10 Hgb 8.3, sigmoidoscopy Preparation of the colon was inadequate. Blood and clots seen in recto-sigmoid colon. Ulcerated, ooozing mucosa in the distal rectum. Treated with goldprobe. Hemostatic spray applied. Avoid AC and ASA for 2 days per GI. Avoid enema, continue PO bowel regimen - 04/11 continued rectal bleed, Hgb down to 6.6, given prbc, d/w GI and consulted CRS - limited options, gelfoam soaked with epi plug per rectum applied, not surgical candidate. Continue huge/large bleeding with dark blood and large clots, given 3 units prbc and 1 unit platelet to help with hemostasis (as still within 5 days after Plavix held), Hgb maintained between 8-9.6, BP stable. See significant event notes 04/12 Colonoscopy done: Clotted blood was found in the rectum. A large area of ulcerated mucosa was found in the rectum with adherent clot. Oozing was present. The clot was not removed. To stop active bleeding, hemostatic spray was deployed. Two sprays were applied. There was no bleeding at the end of the procedure. Multiple small-mouthed diverticula were found in the sigmoid colon. Multiple polyps were seen in the colon throughout the procedure. Avoid fecal management devices or any enemas x 48 hours. Consider sucralfate enemas after 48 hours to aid in ulcer healing. Repeat colonoscopy non-urgently when patient is out of the hospital for polypectomy. Monitor, start clear diet, continue every 6 hrs CBC 04/15 Still with moderate amount of bleeding with dark blood and clots, Hgb however is stable, noticed slowed down with NPO, patient no appetite and prefer to be NPO for now and monitor Gradually increased diet from 04/16-04/24 Consider resumption of plavix. Cardiology consult advised no plavix, start ECASA 81mg Blood count stable since starting aspirin, 9.1/28.6 Planning eventual polypectomy with GI as an outpatient. Assessment & Plan (05/02/2025 1:13 PM CDT): Patient with bloody liquid from rectum late afternoon 04/07. Following Hgb 10.4->10.1->9.9->9.4->9.6. CTA of abd-pelvis did not reveal active bleeding source but lots of stool and what appeared to be stool ball in rectum. Digital exam did not reach stool but large amount of clotted blood in rectum. Start miralax TID and try to clear stool. GI consult on board with no plan to scope. - 04/08 given tap water and mineral oil enema, but no BM - 04/09 check KUB: Stool is again noted within the rectum, huge but bloody bowel movement after hypaque enema, Hgb trended down to 6.7, receive 1 unit prbc - 04/10 Hgb 8.3, sigmoidoscopy Preparation of the colon was inadequate. Blood and clots seen in recto-sigmoid colon. Ulcerated, ooozing mucosa in the distal rectum. Treated with goldprobe. Hemostatic spray applied. Avoid AC and ASA for 2 days per GI. Avoid enema, continue PO bowel regimen - 04/11 continued rectal bleed, Hgb down to 6.6, given prbc, d/w GI and consulted CRS - limited options, gelfoam soaked with epi plug per rectum applied, not surgical candidate. Continue huge/large bleeding with dark blood and large clots, given 3 units prbc and 1 unit platelet to help with hemostasis (as still within 5 days after Plavix held), Hgb maintained between 8-9.6, BP stable. See significant event notes 04/12 Colonoscopy done: Clotted blood was found in the rectum. A large area of ulcerated mucosa was found in the rectum with adherent clot. Oozing was present. The clot was not removed. To stop active bleeding, hemostatic spray was deployed. Two sprays were applied. There was no bleeding at the end of the procedure. Multiple small-mouthed diverticula were found in the sigmoid colon. Multiple polyps were seen in the colon throughout the procedure. Avoid fecal management devices or any enemas x 48 hours. Consider sucralfate enemas after 48 hours to aid in ulcer healing. Repeat colonoscopy non-urgently when patient is out of the hospital for polypectomy. Monitor, start clear diet, continue every 6 hrs CBC 04/15 Still with moderate amount of bleeding with dark blood and clots, Hgb however is stable, noticed slowed down with NPO, patient no appetite and prefer to be NPO for now and monitor Gradually increased diet from 04/16-04/23 Hgb stable 04/24: Hgb=9.7. Consider resumption of plavix. Cardiology consult advised no plavix, start ECASA 81mg Blood count stable since starting aspirin, 9.1/28.6 Planning eventual polypectomy with GI as an outpatient. Assessment & Plan (04/30/2025 5:18 PM CDT): Patient with bloody liquid from rectum late afternoon 04/07. Following Hgb 10.4->10.1->9.9->9.4->9.6. CTA of abd-pelvis did not reveal active bleeding source but lots of stool and what appeared to be stool ball in rectum. Digital exam did not reach stool but large amount of clotted blood in rectum. Start miralax TID and try to clear stool. GI consult on board with no plan to scope. - 04/08 given tap water and mineral oil enema, but no BM - 04/09 check KUB: Stool is again noted within the rectum, huge but bloody bowel movement after hypaque enema, Hgb trended down to 6.7, receive 1 unit prbc - 04/10 Hgb 8.3, sigmoidoscopy Preparation of the colon was inadequate. Blood and clots seen in recto-sigmoid colon. Ulcerated, ooozing mucosa in the distal rectum. Treated with goldprobe. Hemostatic spray applied. Avoid AC and ASA for 2 days per GI. Avoid enema, continue PO bowel regimen - 04/11 continued rectal bleed, Hgb down to 6.6, given prbc, d/w GI and consulted CRS - limited options, gelfoam soaked with epi plug per rectum applied, not surgical candidate. Continue huge/large bleeding with dark blood and large clots, given 3 units prbc and 1 unit platelet to help with hemostasis (as still within 5 days after Plavix held), Hgb maintained between 8-9.6, BP stable. See significant event notes 04/12 Colonoscopy done: Clotted blood was found in the rectum. A large area of ulcerated mucosa was found in the rectum with adherent clot. Oozing was present. The clot was not removed. To stop active bleeding, hemostatic spray was deployed. Two sprays were applied. There was no bleeding at the end of the procedure. Multiple small-mouthed diverticula were found in the sigmoid colon. Multiple polyps were seen in the colon throughout the procedure. Avoid fecal management devices or any enemas x 48 hours. Consider sucralfate enemas after 48 hours to aid in ulcer healing. Repeat colonoscopy non-urgently when patient is out of the hospital for polypectomy. Monitor, start clear diet, continue every 6 hrs CBC 04/15 Still with moderate amount of bleeding with dark blood and clots, Hgb however is stable, noticed slowed down with NPO, patient no appetite and prefer to be NPO for now and monitor Gradually increased diet from 04/16-04/23 Hgb stable 04/24: Hgb=9.7. Consider resumption of plavix. Cardiology consult advised no plavix, start ECASA 81mg Blood count stable since starting aspirin Planning eventual polypectomy with GI as an outpatient. Assessment & Plan (04/29/2025 10:33 AM CDT): Patient with bloody liquid from rectum late afternoon 04/07. Following Hgb 10.4->10.1->9.9->9.4->9.6. CTA of abd-pelvis did not reveal active bleeding source but lots of stool and what appeared to be stool ball in rectum. Digital exam did not reach stool but large amount of clotted blood in rectum. Start miralax TID and try to clear stool. GI consult on board with no plan to scope. - 04/08 given tap water and mineral oil enema, but no BM - 04/09 check KUB: Stool is again noted within the rectum, huge but bloody bowel movement after hypaque enema, Hgb trended down to 6.7, receive 1 unit prbc - 04/10 Hgb 8.3, sigmoidoscopy Preparation of the colon was inadequate. Blood and clots seen in recto-sigmoid colon. Ulcerated, ooozing mucosa in the distal rectum. Treated with goldprobe. Hemostatic spray applied. Avoid AC and ASA for 2 days per GI. Avoid enema, continue PO bowel regimen - 04/11 continued rectal bleed, Hgb down to 6.6, given prbc, d/w GI and consulted CRS - limited options, gelfoam soaked with epi plug per rectum applied, not surgical candidate. Continue huge/large bleeding with dark blood and large clots, given 3 units prbc and 1 unit platelet to help with hemostasis (as still within 5 days after Plavix held), Hgb maintained between 8-9.6, BP stable. See significant event notes - 04/12 Colonoscopy done: Clotted blood was found in the rectum. A large area of ulcerated mucosa was found in the rectum with adherent clot. Oozing was present. The clot was not removed. To stop active bleeding, hemostatic spray was deployed. Two sprays were applied. There was no bleeding at the end of the procedure. Multiple small-mouthed diverticula were found in the sigmoid colon. Multiple polyps were seen in the colon throughout the procedure. Avoid fecal management devices or any enemas x 48 hours. Consider sucralfate enemas after 48 hours to aid in ulcer healing. Repeat colonoscopy non-urgently when patient is out of the hospital for polypectomy. Monitor, start clear diet, continue every 6 hrs CBC -04/15 Still with moderate amount of bleeding with dark blood and clots, Hgb however is stable, noticed slowed down with NPO, patient no appetite and prefer to be NPO for now and monitor 7-1 sips of clears 7-2 stable, stools brown- start clear liquids and monitor 7-3 tolerating clears, brown stools, wants to wait before advancing diet. Hgb stable 7-4 continue clears- stools brown 7-5 advance diet to full liquid, monitor-no bleed, does not want to advance 04/23: Hgb=8.8 advance to regular diet and monitor 04/24: Hgb=9.7. Consider resumption of plavix. Cardiology consult advised no plavix, start ECASA 81mg 04/25. 04/25 Hgb=8.8 04/26 Hgb=8.9 04/27 Hgb=10.2 04/29 Hgb=8.8 no sign of bleeding Assessment & Plan (04/28/2025 11:48 AM CDT): Patient with bloody liquid from rectum late afternoon 04/07. Following Hgb 10.4->10.1->9.9->9.4->9.6. CTA of abd-pelvis did not reveal active bleeding source but lots of stool and what appeared to be stool ball in rectum. Digital exam did not reach stool but large amount of clotted blood in rectum. Start miralax TID and try to clear stool. GI consult on board with no plan to scope. - 04/08 given tap water and mineral oil enema, but no BM - 04/09 check KUB: Stool is again noted within the rectum, huge but bloody bowel movement after hypaque enema, Hgb trended down to 6.7, receive 1 unit prbc - 04/10 Hgb 8.3, sigmoidoscopy Preparation of the colon was inadequate. Blood and clots seen in recto-sigmoid colon. Ulcerated, ooozing mucosa in the distal rectum. Treated with goldprobe. Hemostatic spray applied. Avoid AC and ASA for 2 days per GI. Avoid enema, continue PO bowel regimen - 04/11 continued rectal bleed, Hgb down to 6.6, given prbc, d/w GI and consulted CRS - limited options, gelfoam soaked with epi plug per rectum applied, not surgical candidate. Continue huge/large bleeding with dark blood and large clots, given 3 units prbc and 1 unit platelet to help with hemostasis (as still within 5 days after Plavix held), Hgb maintained between 8-9.6, BP stable. See significant event notes - 04/12 Colonoscopy done: Clotted blood was found in the rectum. A large area of ulcerated mucosa was found in the rectum with adherent clot. Oozing was present. The clot was not removed. To stop active bleeding, hemostatic spray was deployed. Two sprays were applied. There was no bleeding at the end of the procedure. Multiple small-mouthed diverticula were found in the sigmoid colon. Multiple polyps were seen in the colon throughout the procedure. Avoid fecal management devices or any enemas x 48 hours. Consider sucralfate enemas after 48 hours to aid in ulcer healing. Repeat colonoscopy non-urgently when patient is out of the hospital for polypectomy. Monitor, start clear diet, continue every 6 hrs CBC -04/15 Still with moderate amount of bleeding with dark blood and clots, Hgb however is stable, noticed slowed down with NPO, patient no appetite and prefer to be NPO for now and monitor 7-1 sips of clears 7-2 stable, stools brown- start clear liquids and monitor 7-3 tolerating clears, brown stools, wants to wait before advancing diet. Hgb stable 7-4 continue clears- stools brown 7- advance diet to full liquid, monitor-no bleed, does not want to advance 04/23: Hgb=8.8 advance to regular diet and monitor 04/24: Hgb=9.7. Consider resumption of plavix. Cardiology consult advised no plavix, start ECASA 81mg 04/25. 04/25 Hgb=8.8 04/26 Hgb=8.9 no sign of bleeding 04/27 Hgb=10.2 Assessment & Plan (04/27/2025 9:58 AM CDT): Patient with bloody liquid from rectum late afternoon 04/07. Following Hgb 10.4->10.1->9.9->9.4->9.6. CTA of abd-pelvis did not reveal active bleeding source but lots of stool and what appeared to be stool ball in rectum. Digital exam did not reach stool but large amount of clotted blood in rectum. Start miralax TID and try to clear stool. GI consult on board with no plan to scope. - 04/08 given tap water and mineral oil enema, but no BM - 04/09 check KUB: Stool is again noted within the rectum, huge but bloody bowel movement after hypaque enema, Hgb trended down to 6.7, receive 1 unit prbc - 04/10 Hgb 8.3, sigmoidoscopy Preparation of the colon was inadequate. Blood and clots seen in recto-sigmoid colon. Ulcerated, ooozing mucosa in the distal rectum. Treated with goldprobe. Hemostatic spray applied. Avoid AC and ASA for 2 days per GI. Avoid enema, continue PO bowel regimen - 04/11 continued rectal bleed, Hgb down to 6.6, given prbc, d/w GI and consulted CRS - limited options, gelfoam soaked with epi plug per rectum applied, not surgical candidate. Continue huge/large bleeding with dark blood and large clots, given 3 units prbc and 1 unit platelet to help with hemostasis (as still within 5 days after Plavix held), Hgb maintained between 8-9.6, BP stable. See significant event notes - 04/12 Colonoscopy done: Clotted blood was found in the rectum. A large area of ulcerated mucosa was found in the rectum with adherent clot. Oozing was present. The clot was not removed. To stop active bleeding, hemostatic spray was deployed. Two sprays were applied. There was no bleeding at the end of the procedure. Multiple small-mouthed diverticula were found in the sigmoid colon. Multiple polyps were seen in the colon throughout the procedure. Avoid fecal management devices or any enemas x 48 hours. Consider sucralfate enemas after 48 hours to aid in ulcer healing. Repeat colonoscopy non-urgently when patient is out of the hospital for polypectomy. Monitor, start clear diet, continue every 6 hrs CBC -04/15 Still with moderate amount of bleeding with dark blood and clots, Hgb however is stable, noticed slowed down with NPO, patient no appetite and prefer to be NPO for now and monitor 7-1 sips of clears 7-2 stable, stools brown- start clear liquids and monitor 7-3 tolerating clears, brown stools, wants to wait before advancing diet. Hgb stable 7-4 continue clears- stools brown 7-5 advance diet to full liquid, monitor-no bleed, does not want to advance 04/23: Hgb=8.8 advance to regular diet and monitor 04/24: Hgb=9.7. Consider resumption of plavix. Cardiology consult advised no plavix, start ECASA 81mg 04/25. 04/25 Hgb=8.8 04/26 Hgb=8.9 no sign of bleeding 04/27 Hgb=10.2 Assessment & Plan (04/26/2025 10:07 AM CDT): Patient with bloody liquid from rectum late afternoon 04/07. Following Hgb 10.4->10.1->9.9->9.4->9.6. CTA of abd-pelvis did not reveal active bleeding source but lots of stool and what appeared to be stool ball in rectum. Digital exam did not reach stool but large amount of clotted blood in rectum. Start miralax TID and try to clear stool. GI consult on board with no plan to scope. - 04/08 given tap water and mineral oil enema, but no BM - 04/09 check KUB: Stool is again noted within the rectum, huge but bloody bowel movement after hypaque enema, Hgb trended down to 6.7, receive 1 unit prbc - 04/10 Hgb 8.3, sigmoidoscopy Preparation of the colon was inadequate. Blood and clots seen in recto-sigmoid colon. Ulcerated, ooozing mucosa in the distal rectum. Treated with goldprobe. Hemostatic spray applied. Avoid AC and ASA for 2 days per GI. Avoid enema, continue PO bowel regimen - 04/11 continued rectal bleed, Hgb down to 6.6, given prbc, d/w GI and consulted CRS - limited options, gelfoam soaked with epi plug per rectum applied, not surgical candidate. Continue huge/large bleeding with dark blood and large clots, given 3 units prbc and 1 unit platelet to help with hemostasis (as still within 5 days after Plavix held), Hgb maintained between 8-9.6, BP stable. See significant event notes - 04/12 Colonoscopy done: Clotted blood was found in the rectum. A large area of ulcerated mucosa was found in the rectum with adherent clot. Oozing was present. The clot was not removed. To stop active bleeding, hemostatic spray was deployed. Two sprays were applied. There was no bleeding at the end of the procedure. Multiple small-mouthed diverticula were found in the sigmoid colon. Multiple polyps were seen in the colon throughout the procedure. Avoid fecal management devices or any enemas x 48 hours. Consider sucralfate enemas after 48 hours to aid in ulcer healing. Repeat colonoscopy non-urgently when patient is out of the hospital for polypectomy. Monitor, start clear diet, continue every 6 hrs CBC -04/15 Still with moderate amount of bleeding with dark blood and clots, Hgb however is stable, noticed slowed down with NPO, patient no appetite and prefer to be NPO for now and monitor 7-1 sips of clears 7-2 stable, stools brown- start clear liquids and monitor 7-3 tolerating clears, brown stools, wants to wait before advancing diet. Hgb stable 7-4 continue clears- stools brown 7-5 advance diet to full liquid, monitor-no bleed, does not want to advance 04/23: Hgb=8.8 advance to regular diet and monitor 04/24: Hgb=9.7. Consider resumption of plavix. Cardiology consult advised no plavix, start ECASA 81mg 04/25. 04/25 Hgb=8.8 04/26 Hgb=8.9 no sign of bleeding Assessment & Plan (04/25/2025 10:43 AM CDT): Patient with bloody liquid from rectum late afternoon 04/07. Following Hgb 10.4->10.1->9.9->9.4->9.6. CTA of abd-pelvis did not reveal active bleeding source but lots of stool and what appeared to be stool ball in rectum. Digital exam did not reach stool but large amount of clotted blood in rectum. Start miralax TID and try to clear stool. GI consult on board with no plan to scope. - 04/08 given tap water and mineral oil enema, but no BM - 04/09 check KUB: Stool is again noted within the rectum, huge but bloody bowel movement after hypaque enema, Hgb trended down to 6.7, receive 1 unit prbc - 04/10 Hgb 8.3, sigmoidoscopy Preparation of the colon was inadequate. Blood and clots seen in recto-sigmoid colon. Ulcerated, ooozing mucosa in the distal rectum. Treated with goldprobe. Hemostatic spray applied. Avoid AC and ASA for 2 days per GI. Avoid enema, continue PO bowel regimen - 04/11 continued rectal bleed, Hgb down to 6.6, given prbc, d/w GI and consulted CRS - limited options, gelfoam soaked with epi plug per rectum applied, not surgical candidate. Continue huge/large bleeding with dark blood and large clots, given 3 units prbc and 1 unit platelet to help with hemostasis (as still within 5 days after Plavix held), Hgb maintained between 8-9.6, BP stable. See significant event notes - 04/12 Colonoscopy done: Clotted blood was found in the rectum. A large area of ulcerated mucosa was found in the rectum with adherent clot. Oozing was present. The clot was not removed. To stop active bleeding, hemostatic spray was deployed. Two sprays were applied. There was no bleeding at the end of the procedure. Multiple small-mouthed diverticula were found in the sigmoid colon. Multiple polyps were seen in the colon throughout the procedure. Avoid fecal management devices or any enemas x 48 hours. Consider sucralfate enemas after 48 hours to aid in ulcer healing. Repeat colonoscopy non-urgently when patient is out of the hospital for polypectomy. Monitor, start clear diet, continue every 6 hrs CBC -04/15 Still with moderate amount of bleeding with dark blood and clots, Hgb however is stable, noticed slowed down with NPO, patient no appetite and prefer to be NPO for now and monitor 7-1 sips of clears 7-2 stable, stools brown- start clear liquids and monitor 7-3 tolerating clears, brown stools, wants to wait before advancing diet. Hgb stable 7-4 continue clears- stools brown 7-5 advance diet to full liquid, monitor-no bleed, does not want to advance 7/8: advance to regular diet and monitor /: Hgb=9.7. Consider resumption of plavix. Cardiology consult advised no plavix, start ECASA 81mg 04/25. Assessment & Plan (04/24/2025 11:01 AM CDT): Patient with bloody liquid from rectum late afternoon 04/07. Following Hgb 10.4->10.1->9.9->9.4->9.6. CTA of abd-pelvis did not reveal active bleeding source but lots of stool and what appeared to be stool ball in rectum. Digital exam did not reach stool but large amount of clotted blood in rectum. Start miralax TID and try to clear stool. GI consult on board with no plan to scope. - 04/08 given tap water and mineral oil enema, but no BM - 04/09 check KUB: Stool is again noted within the rectum, huge but bloody bowel movement after hypaque enema, Hgb trended down to 6.7, receive 1 unit prbc - 04/10 Hgb 8.3, sigmoidoscopy Preparation of the colon was inadequate. Blood and clots seen in recto-sigmoid colon. Ulcerated, ooozing mucosa in the distal rectum. Treated with goldprobe. Hemostatic spray applied. Avoid AC and ASA for 2 days per GI. Avoid enema, continue PO bowel regimen - 04/11 continued rectal bleed, Hgb down to 6.6, given prbc, d/w GI and consulted CRS - limited options, gelfoam soaked with epi plug per rectum applied, not surgical candidate. Continue huge/large bleeding with dark blood and large clots, given 3 units prbc and 1 unit platelet to help with hemostasis (as still within 5 days after Plavix held), Hgb maintained between 8-9.6, BP stable. See significant event notes - 04/12 Colonoscopy done: Clotted blood was found in the rectum. A large area of ulcerated mucosa was found in the rectum with adherent clot. Oozing was present. The clot was not removed. To stop active bleeding, hemostatic spray was deployed. Two sprays were applied. There was no bleeding at the end of the procedure. Multiple small-mouthed diverticula were found in the sigmoid colon. Multiple polyps were seen in the colon throughout the procedure. Avoid fecal management devices or any enemas x 48 hours. Consider sucralfate enemas after 48 hours to aid in ulcer healing. Repeat colonoscopy non-urgently when patient is out of the hospital for polypectomy. Monitor, start clear diet, continue every 6 hrs CBC -04/15 Still with moderate amount of bleeding with dark blood and clots, Hgb however is stable, noticed slowed down with NPO, patient no appetite and prefer to be NPO for now and monitor 7-1 sips of clears 7-2 stable, stools brown- start clear liquids and monitor 7-3 tolerating clears, brown stools, wants to wait before advancing diet. Hgb stable 7-4 continue clears- stools brown 7-5 advance diet to full liquid, monitor-no bleed, does not want to advance 04/23: advance to regular diet and monitor 04/24: Hgb=9.7. Consider resumption of plavix. Assessment & Plan (04/23/2025 2:21 PM CDT): Patient with bloody liquid from rectum late afternoon 04/07. Following Hgb 10.4->10.1->9.9->9.4->9.6. CTA of abd-pelvis did not reveal active bleeding source but lots of stool and what appeared to be stool ball in rectum. Digital exam did not reach stool but large amount of clotted blood in rectum. Start miralax TID and try to clear stool. GI consult on board with no plan to scope. - 04/08 given tap water and mineral oil enema, but no BM - 04/09 check KUB: Stool is again noted within the rectum, huge but bloody bowel movement after hypaque enema, Hgb trended down to 6.7, receive 1 unit prbc - 04/10 Hgb 8.3, sigmoidoscopy Preparation of the colon was inadequate. Blood and clots seen in recto-sigmoid colon. Ulcerated, ooozing mucosa in the distal rectum. Treated with goldprobe. Hemostatic spray applied. Avoid AC and ASA for 2 days per GI. Avoid enema, continue PO bowel regimen - 04/11 continued rectal bleed, Hgb down to 6.6, given prbc, d/w GI and consulted CRS - limited options, gelfoam soaked with epi plug per rectum applied, not surgical candidate. Continue huge/large bleeding with dark blood and large clots, given 3 units prbc and 1 unit platelet to help with hemostasis (as still within 5 days after Plavix held), Hgb maintained between 8-9.6, BP stable. See significant event notes - 04/12 Colonoscopy done: Clotted blood was found in the rectum. A large area of ulcerated mucosa was found in the rectum with adherent clot. Oozing was present. The clot was not removed. To stop active bleeding, hemostatic spray was deployed. Two sprays were applied. There was no bleeding at the end of the procedure. Multiple small-mouthed diverticula were found in the sigmoid colon. Multiple polyps were seen in the colon throughout the procedure. Avoid fecal management devices or any enemas x 48 hours. Consider sucralfate enemas after 48 hours to aid in ulcer healing. Repeat colonoscopy non-urgently when patient is out of the hospital for polypectomy. Monitor, start clear diet, continue every 6 hrs CBC -04/15 Still with moderate amount of bleeding with dark blood and clots, Hgb however is stable, noticed slowed down with NPO, patient no appetite and prefer to be NPO for now and monitor 7-1 sips of clears 7-2 stable, stools brown- start clear liquids and monitor 7-3 tolerating clears, brown stools, wants to wait before advancing diet. Hgb stable 7-4 continue clears- stools brown 7-5 advance diet to full liquid, monitor-no bleed, does not want to advance 7/8: advance to regular diet and monitor Assessment & Plan (04/23/2025 6:07 AM CDT): Patient with bloody liquid from rectum late afternoon 04/07. Following Hgb 10.4->10.1->9.9->9.4->9.6. CTA of abd-pelvis did not reveal active bleeding source but lots of stool and what appeared to be stool ball in rectum. Digital exam did not reach stool but large amount of clotted blood in rectum. Start miralax TID and try to clear stool. GI consult on board with no plan to scope. - 04/08 given tap water and mineral oil enema, but no BM - 04/09 check KUB: Stool is again noted within the rectum, huge but bloody bowel movement after hypaque enema, Hgb trended down to 6.7, receive 1 unit prbc - 04/10 Hgb 8.3, sigmoidoscopy Preparation of the colon was inadequate. Blood and clots seen in recto-sigmoid colon. Ulcerated, ooozing mucosa in the distal rectum. Treated with goldprobe. Hemostatic spray applied. Avoid AC and ASA for 2 days per GI. Avoid enema, continue PO bowel regimen - 04/11 continued rectal bleed, Hgb down to 6.6, given prbc, d/w GI and consulted CRS - limited options, gelfoam soaked with epi plug per rectum applied, no surgical candidate. Continue huge/large bleeding with dark blood and large clots, given 3 units prbc and 1 unit platelet to help with hemostasis (as still within 5 days after Plavix held), Hgb maintained between 8-9.6, BP stable. See significant event notes - 04/12 Colonoscopy done: Clotted blood was found in the rectum. A large area of ulcerated mucosa was found in the rectum with adherent clot. Oozing was present. The clot was not removed. To stop active bleeding, hemostatic spray was deployed. Two sprays were applied. There was no bleeding at the end of the procedure. Multiple small-mouthed diverticula were found in the sigmoid colon. Multiple polyps were seen in the colon throughout the procedure. Avoid fecal management devices or any enemas x 48 hours. Consider sucralfate enemas after 48 hours to aid in ulcer healing. Repeat colonoscopy non-urgently when patient is out of the hospital for polypectomy. Monitor, start clear diet, continue every 6 hrs CBC -30 Still with moderate amount of bleeding with dark blood and clots, Hgb however is stable, noticed slowed down with NPO, patient no appetite and prefer to be NPO for now and monitor 7-1 sips of clears 7-2, stable, stools brown- start clear liquids and monitor 7-3, tolerating clears , brown stools, wants to wait before advancing diet. Hgb stable 7-4 continue clears- stools brown, 7-5 advance diet to full liquid, monitorno bleed, does not want to advance Assessment & Plan (04/21/2025 8:10 PM CDT): Patient with bloody liquid from rectum late afternoon 04/07. Following Hgb 10.4->10.1->9.9->9.4->9.6. CTA of abd-pelvis did not reveal active bleeding source but lots of stool and what appeared to be stool ball in rectum. Digital exam did not reach stool but large amount of clotted blood in rectum. Start miralax TID and try to clear stool. GI consult on board with no plan to scope. - 04/08 given tap water and mineral oil enema, but no BM - 04/09 check KUB: Stool is again noted within the rectum, huge but bloody bowel movement after hypaque enema, Hgb trended down to 6.7, receive 1 unit prbc - 04/10 Hgb 8.3, sigmoidoscopy Preparation of the colon was inadequate. Blood and clots seen in recto-sigmoid colon. Ulcerated, ooozing mucosa in the distal rectum. Treated with goldprobe. Hemostatic spray applied. Avoid AC and ASA for 2 days per GI. Avoid enema, continue PO bowel regimen - 04/11 continued rectal bleed, Hgb down to 6.6, given prbc, d/w GI and consulted CRS - limited options, gelfoam soaked with epi plug per rectum applied, no surgical candidate. Continue huge/large bleeding with dark blood and large clots, given 3 units prbc and 1 unit platelet to help with hemostasis (as still within 5 days after Plavix held), Hgb maintained between 8-9.6, BP stable. See significant event notes - 04/12 Colonoscopy done: Clotted blood was found in the rectum. A large area of ulcerated mucosa was found in the rectum with adherent clot. Oozing was present. The clot was not removed. To stop active bleeding, hemostatic spray was deployed. Two sprays were applied. There was no bleeding at the end of the procedure. Multiple small-mouthed diverticula were found in the sigmoid colon. Multiple polyps were seen in the colon throughout the procedure. Avoid fecal management devices or any enemas x 48 hours. Consider sucralfate enemas after 48 hours to aid in ulcer healing. Repeat colonoscopy non-urgently when patient is out of the hospital for polypectomy. Monitor, start clear diet, continue every 6 hrs CBC -6-30 Still with moderate amount of bleeding with dark blood and clots, Hgb however is stable, noticed slowed down with NPO, patient no appetite and prefer to be NPO for now and monitor 7-1 sips of clears 7-2, stable, stools brown- start clear liquids and monitor 7-3, tolerating clears , brown stools, wants to wait before advancing diet. Hgb stable 7-4 continue clears- stools brown, 7-5 advance diet to full liquid, monitor Assessment & Plan (04/20/2025 7:27 PM CDT): Patient with bloody liquid from rectum late afternoon 04/07. Following Hgb 10.4->10.1->9.9->9.4->9.6. CTA of abd-pelvis did not reveal active bleeding source but lots of stool and what appeared to be stool ball in rectum. Digital exam did not reach stool but large amount of clotted blood in rectum. Start miralax TID and try to clear stool. GI consult on board with no plan to scope. - 04/08 given tap water and mineral oil enema, but no BM - 04/09 check KUB: Stool is again noted within the rectum, huge but bloody bowel movement after hypaque enema, Hgb trended down to 6.7, receive 1 unit prbc - 04/10 Hgb 8.3, sigmoidoscopy Preparation of the colon was inadequate. Blood and clots seen in recto-sigmoid colon. Ulcerated, ooozing mucosa in the distal rectum. Treated with goldprobe. Hemostatic spray applied. Avoid AC and ASA for 2 days per GI. Avoid enema, continue PO bowel regimen - 04/11 continued rectal bleed, Hgb down to 6.6, given prbc, d/w GI and consulted CRS - limited options, gelfoam soaked with epi plug per rectum applied, no surgical candidate. Continue huge/large bleeding with dark blood and large clots, given 3 units prbc and 1 unit platelet to help with hemostasis (as still within 5 days after Plavix held), Hgb maintained between 8-9.6, BP stable. See significant event notes - 04/12 Colonoscopy done: Clotted blood was found in the rectum. A large area of ulcerated mucosa was found in the rectum with adherent clot. Oozing was present. The clot was not removed. To stop active bleeding, hemostatic spray was deployed. Two sprays were applied. There was no bleeding at the end of the procedure. Multiple small-mouthed diverticula were found in the sigmoid colon. Multiple polyps were seen in the colon throughout the procedure. Avoid fecal management devices or any enemas x 48 hours. Consider sucralfate enemas after 48 hours to aid in ulcer healing. Repeat colonoscopy non-urgently when patient is out of the hospital for polypectomy. Monitor, start clear diet, continue every 6 hrs CBC -6-30 Still with moderate amount of bleeding with dark blood and clots, Hgb however is stable, noticed slowed down with NPO, patient no appetite and prefer to be NPO for now and monitor 7-1 sips of clears 7-2, stable, stools brown- start clear liquids and monitor 7-3, tolerating clears , brown stools, wants to wait before advancing diet. Hgb stable 7-4 continue clears- stools brown, monitor 7-5 advance diet to full liquid Assessment & Plan (04/19/2025 8:18 PM CDT): Patient with bloody liquid from rectum late afternoon 04/07. Following Hgb 10.4->10.1->9.9->9.4->9.6. CTA of abd-pelvis did not reveal active bleeding source but lots of stool and what appeared to be stool ball in rectum. Digital exam did not reach stool but large amount of clotted blood in rectum. Start miralax TID and try to clear stool. GI consult on board with no plan to scope. - 04/08 given tap water and mineral oil enema, but no BM - 04/09 check KUB: Stool is again noted within the rectum, huge but bloody bowel movement after hypaque enema, Hgb trended down to 6.7, receive 1 unit prbc - 04/10 Hgb 8.3, sigmoidoscopy Preparation of the colon was inadequate. Blood and clots seen in recto-sigmoid colon. Ulcerated, ooozing mucosa in the distal rectum. Treated with goldprobe. Hemostatic spray applied. Avoid AC and ASA for 2 days per GI. Avoid enema, continue PO bowel regimen - 04/11 continued rectal bleed, Hgb down to 6.6, given prbc, d/w GI and consulted CRS - limited options, gelfoam soaked with epi plug per rectum applied, no surgical candidate. Continue huge/large bleeding with dark blood and large clots, given 3 units prbc and 1 unit platelet to help with hemostasis (as still within 5 days after Plavix held), Hgb maintained between 8-9.6, BP stable. See significant event notes - 04/12 Colonoscopy done: Clotted blood was found in the rectum. A large area of ulcerated mucosa was found in the rectum with adherent clot. Oozing was present. The clot was not removed. To stop active bleeding, hemostatic spray was deployed. Two sprays were applied. There was no bleeding at the end of the procedure. Multiple small-mouthed diverticula were found in the sigmoid colon. Multiple polyps were seen in the colon throughout the procedure. Avoid fecal management devices or any enemas x 48 hours. Consider sucralfate enemas after 48 hours to aid in ulcer healing. Repeat colonoscopy non-urgently when patient is out of the hospital for polypectomy. Monitor, start clear diet, continue every 6 hrs CBC -30 Still with moderate amount of bleeding with dark blood and clots, Hgb however is stable, noticed slowed down with NPO, patient no appetite and prefer to be NPO for now and monitor 7-1 sips of clears 7-2, stable, stools brown- start clear liquids and monitor 7-3, tolerating clears , brown stools, wants to wait before advancing diet. Hgb stable 7-4 continue clears-monitor Assessment & Plan (04/18/2025 7:47 PM CDT): Patient with bloody liquid from rectum late afternoon 04/07. Following Hgb 10.4->10.1->9.9->9.4->9.6. CTA of abd-pelvis did not reveal active bleeding source but lots of stool and what appeared to be stool ball in rectum. Digital exam did not reach stool but large amount of clotted blood in rectum. Start miralax TID and try to clear stool. GI consult on board with no plan to scope. - 04/08 given tap water and mineral oil enema, but no BM - 04/09 check KUB: Stool is again noted within the rectum, huge but bloody bowel movement after hypaque enema, Hgb trended down to 6.7, receive 1 unit prbc - 04/10 Hgb 8.3, sigmoidoscopy Preparation of the colon was inadequate. Blood and clots seen in recto-sigmoid colon. Ulcerated, ooozing mucosa in the distal rectum. Treated with goldprobe. Hemostatic spray applied. Avoid AC and ASA for 2 days per GI. Avoid enema, continue PO bowel regimen - 04/11 continued rectal bleed, Hgb down to 6.6, given prbc, d/w GI and consulted CRS - limited options, gelfoam soaked with epi plug per rectum applied, no surgical candidate. Continue huge/large bleeding with dark blood and large clots, given 3 units prbc and 1 unit platelet to help with hemostasis (as still within 5 days after Plavix held), Hgb maintained between 8-9.6, BP stable. See significant event notes - 04/12 Colonoscopy done: Clotted blood was found in the rectum. A large area of ulcerated mucosa was found in the rectum with adherent clot. Oozing was present. The clot was not removed. To stop active bleeding, hemostatic spray was deployed. Two sprays were applied. There was no bleeding at the end of the procedure. Multiple small-mouthed diverticula were found in the sigmoid colon. Multiple polyps were seen in the colon throughout the procedure. Avoid fecal management devices or any enemas x 48 hours. Consider sucralfate enemas after 48 hours to aid in ulcer healing. Repeat colonoscopy non-urgently when patient is out of the hospital for polypectomy. Monitor, start clear diet, continue every 6 hrs CBC -30 Still with moderate amount of bleeding with dark blood and clots, Hgb however is stable, noticed slowed down with NPO, patient no appetite and prefer to be NPO for now and monitor 7-1 sips of clears 7-2, stable, stools brown- start clear liquids and monitor 7-3, tolerating clears , brown stools, wants to wait befoe advancing diet. Hgb stable Assessment & Plan (04/18/2025 12:22 AM CDT): Patient with bloody liquid from rectum late afternoon 04/07. Following Hgb 10.4->10.1->9.9->9.4->9.6. CTA of abd-pelvis did not reveal active bleeding source but lots of stool and what appeared to be stool ball in rectum. Digital exam did not reach stool but large amount of clotted blood in rectum. Start miralax TID and try to clear stool. GI consult on board with no plan to scope. - 04/08 given tap water and mineral oil enema, but no BM - 04/09 check KUB: Stool is again noted within the rectum, huge but bloody bowel movement after hypaque enema, Hgb trended down to 6.7, receive 1 unit prbc - 04/10 Hgb 8.3, sigmoidoscopy Preparation of the colon was inadequate. Blood and clots seen in recto-sigmoid colon. Ulcerated, ooozing mucosa in the distal rectum. Treated with goldprobe. Hemostatic spray applied. Avoid AC and ASA for 2 days per GI. Avoid enema, continue PO bowel regimen - 04/11 continued rectal bleed, Hgb down to 6.6, given prbc, d/w GI and consulted CRS - limited options, gelfoam soaked with epi plug per rectum applied, no surgical candidate. Continue huge/large bleeding with dark blood and large clots, given 3 units prbc and 1 unit platelet to help with hemostasis (as still within 5 days after Plavix held), Hgb maintained between 8-9.6, BP stable. See significant event notes - 04/12 Colonoscopy done: Clotted blood was found in the rectum. A large area of ulcerated mucosa was found in the rectum with adherent clot. Oozing was present. The clot was not removed. To stop active bleeding, hemostatic spray was deployed. Two sprays were applied. There was no bleeding at the end of the procedure. Multiple small-mouthed diverticula were found in the sigmoid colon. Multiple polyps were seen in the colon throughout the procedure. Avoid fecal management devices or any enemas x 48 hours. Consider sucralfate enemas after 48 hours to aid in ulcer healing. Repeat colonoscopy non-urgently when patient is out of the hospital for polypectomy. Monitor, start clear diet, continue every 6 hrs CBC - Still with moderate amount of bleeding with dark blood and clots, Hgb however is stable, noticed slowed down with NPO, patient no appetite and prefer to be NPO for now and monitor 7-2, stable, stools brown- start clear liquids and monitor Assessment & Plan (04/16/2025 1:42 PM CDT): Patient with bloody liquid from rectum late afternoon 04/07. Following Hgb 10.4->10.1->9.9->9.4->9.6. CTA of abd-pelvis did not reveal active bleeding source but lots of stool and what appeared to be stool ball in rectum. Digital exam did not reach stool but large amount of clotted blood in rectum. Start miralax TID and try to clear stool. GI consult on board with no plan to scope. - 04/08 given tap water and mineral oil enema, but no BM - 04/09 check KUB: Stool is again noted within the rectum, huge but bloody bowel movement after hypaque enema, Hgb trended down to 6.7, receive 1 unit prbc - 04/10 Hgb 8.3, sigmoidoscopy Preparation of the colon was inadequate. Blood and clots seen in recto-sigmoid colon. Ulcerated, ooozing mucosa in the distal rectum. Treated with goldprobe. Hemostatic spray applied. Avoid AC and ASA for 2 days per GI. Avoid enema, continue PO bowel regimen - 04/11 continued rectal bleed, Hgb down to 6.6, given prbc, d/w GI and consulted CRS - limited options, gelfoam soaked with epi plug per rectum applied, no surgical candidate. Continue huge/large bleeding with dark blood and large clots, given 3 units prbc and 1 unit platelet to help with hemostasis (as still within 5 days after Plavix held), Hgb maintained between 8-9.6, BP stable. See significant event notes - 04/12 Colonoscopy done: Clotted blood was found in the rectum. A large area of ulcerated mucosa was found in the rectum with adherent clot. Oozing was present. The clot was not removed. To stop active bleeding, hemostatic spray was deployed. Two sprays were applied. There was no bleeding at the end of the procedure. Multiple small-mouthed diverticula were found in the sigmoid colon. Multiple polyps were seen in the colon throughout the procedure. Avoid fecal management devices or any enemas x 48 hours. Consider sucralfate enemas after 48 hours to aid in ulcer healing. Repeat colonoscopy non-urgently when patient is out of the hospital for polypectomy. Monitor, start clear diet, continue every 6 hrs CBC - Still with moderate amount of bleeding with dark blood and clots, Hgb however is stable, noticed slowed down with NPO, patient no appetite and prefer to be NPO for now and monitor Assessment & Plan (04/15/2025 8:16 AM CDT): Patient with bloody liquid from rectum late afternoon 04/07. Following Hgb 10.4->10.1->9.9->9.4->9.6. CTA of abd-pelvis did not reveal active bleeding source but lots of stool and what appeared to be stool ball in rectum. Digital exam did not reach stool but large amount of clotted blood in rectum. Start miralax TID and try to clear stool. GI consult on board with no plan to scope. - 04/08 given tap water and mineral oil enema, but no BM - 04/09 check KUB: Stool is again noted within the rectum, huge but bloody bowel movement after hypaque enema, Hgb trended down to 6.7, receive 1 unit prbc - 04/10 Hgb 8.3, sigmoidoscopy Preparation of the colon was inadequate. Blood and clots seen in recto-sigmoid colon. Ulcerated, ooozing mucosa in the distal rectum. Treated with goldprobe. Hemostatic spray applied. Avoid AC and ASA for 2 days per GI. Avoid enema, continue PO bowel regimen - 04/11 continued rectal bleed, Hgb down to 6.6, given prbc, d/w GI and consulted CRS - limited options, gelfoam soaked with epi plug per rectum applied, no surgical candidate. Continue huge/large bleeding with dark blood and large clots, given 3 units prbc and 1 unit platelet to help with hemostasis (as still within 5 days after Plavix held), Hgb maintained between 8-9.6, BP stable. See significant event notes - 04/12 Colonoscopy done: Clotted blood was found in the rectum. A large area of ulcerated mucosa was found in the rectum with adherent clot. Oozing was present. The clot was not removed. To stop active bleeding, hemostatic spray was deployed. Two sprays were applied. There was no bleeding at the end of the procedure. Multiple small-mouthed diverticula were found in the sigmoid colon. Multiple polyps were seen in the colon throughout the procedure. Avoid fecal management devices or any enemas x 48 hours. Consider sucralfate enemas after 48 hours to aid in ulcer healing. Repeat colonoscopy non-urgently when patient is out of the hospital for polypectomy. Monitor, start clear diet, continue every 6 hrs CBC - Still with moderate amount of bleeding with dark blood and clots, Hgb however is stable, noticed slowed down with NPO, patient no appetite and prefer to be NPO for now and monitor Assessment & Plan (04/14/2025 11:36 AM CDT): Patient with bloody liquid from rectum late afternoon 04/07. Following Hgb 10.4->10.1->9.9->9.4->9.6. CTA of abd-pelvis did not reveal active bleeding source but lots of stool and what appeared to be stool ball in rectum. Digital exam did not reach stool but large amount of clotted blood in rectum. Start miralax TID and try to clear stool. GI consult on board with no plan to scope. - 04/08 given tap water and mineral oil enema, but no BM - 04/09 check KUB: Stool is again noted within the rectum, huge but bloody bowel movement after hypaque enema, Hgb trended down to 6.7, receive 1 unit prbc - 04/10 Hgb 8.3, sigmoidoscopy Preparation of the colon was inadequate. Blood and clots seen in recto-sigmoid colon. Ulcerated, ooozing mucosa in the distal rectum. Treated with goldprobe. Hemostatic spray applied. Avoid AC and ASA for 2 days per GI. Avoid enema, continue PO bowel regimen - 04/11 continued rectal bleed, Hgb down to 6.6, given prbc, d/w GI and consulted CRS - limited options, gelfoam soaked with epi plug per rectum applied, no surgical candidate. Continue huge/large bleeding with dark blood and large clots, given 3 units prbc and 1 unit platelet to help with hemostasis (as still within 5 days after Plavix held), Hgb maintained between 8-9.6, BP stable. See significant event notes - 04/12 Colonoscopy done: Clotted blood was found in the rectum. A large area of ulcerated mucosa was found in the rectum with adherent clot. Oozing was present. The clot was not removed. To stop active bleeding, hemostatic spray was deployed. Two sprays were applied. There was no bleeding at the end of the procedure. Multiple small-mouthed diverticula were found in the sigmoid colon. Multiple polyps were seen in the colon throughout the procedure. Avoid fecal management devices or any enemas x 48 hours. Consider sucralfate enemas after 48 hours to aid in ulcer healing. Repeat colonoscopy non-urgently when patient is out of the hospital for polypectomy. Monitor, start clear diet, continue every 6 hrs CBC - Still with moderate amount of bleeding with dark blood and clots, Hgb however is stable, noticed slowed down with NPO, patient no appetite and prefer to be NPO for now and monitor Colon polyps 04/13/2025 Assessment & Plan (05/10/2025 7:59 AM CDT): Patient with bloody liquid from rectum late afternoon 04/07. Following Hgb 10.4->10.1->9.9->9.4->9.6. CTA of abd-pelvis did not reveal active bleeding source but lots of stool and what appeared to be stool ball in rectum. Digital exam did not reach stool but large amount of clotted blood in rectum. Start miralax TID and try to clear stool. GI consult on board with no plan to scope. - 04/08 given tap water and mineral oil enema, but no BM - 04/09 check KUB: Stool is again noted within the rectum, huge but bloody bowel movement after hypaque enema, Hgb trended down to 6.7, receive 1 unit prbc - 04/10 Hgb 8.3, sigmoidoscopy Preparation of the colon was inadequate. Blood and clots seen in recto-sigmoid colon. Ulcerated, ooozing mucosa in the distal rectum. Treated with goldprobe. Hemostatic spray applied. Avoid AC and ASA for 2 days per GI. Avoid enema, continue PO bowel regimen - 04/11 continued rectal bleed, Hgb down to 6.6, given prbc, d/w GI and consulted CRS - limited options, gelfoam soaked with epi plug per rectum applied, not surgical candidate. Continue huge/large bleeding with dark blood and large clots, given 3 units prbc and 1 unit platelet to help with hemostasis (as still within 5 days after Plavix held), Hgb maintained between 8-9.6, BP stable. See significant event notes 04/12 Colonoscopy done: Clotted blood was found in the rectum. A large area of ulcerated mucosa was found in the rectum with adherent clot. Oozing was present. The clot was not removed. To stop active bleeding, hemostatic spray was deployed. Two sprays were applied. There was no bleeding at the end of the procedure. Multiple small-mouthed diverticula were found in the sigmoid colon. Multiple polyps were seen in the colon throughout the procedure. Avoid fecal management devices or any enemas x 48 hours. Consider sucralfate enemas after 48 hours to aid in ulcer healing. Repeat colonoscopy non-urgently when patient is out of the hospital for polypectomy. Monitor, start clear diet, continue every 6 hrs CBC 04/15 Still with moderate amount of bleeding with dark blood and clots, Hgb however is stable, noticed slowed down with NPO, patient no appetite and prefer to be NPO for now and monitor Gradually increased diet from 04/16-04/24 Consider resumption of plavix. Cardiology consult advised no plavix, start ECASA 81mg Blood count stable since starting aspirin Planning eventual polypectomy with GI as an outpatient. Had a BM 05/05 --Continue Miralax/senna prn Assessment & Plan (05/09/2025 7:59 AM CDT): Patient with bloody liquid from rectum late afternoon 04/07. Following Hgb 10.4->10.1->9.9->9.4->9.6. CTA of abd-pelvis did not reveal active bleeding source but lots of stool and what appeared to be stool ball in rectum. Digital exam did not reach stool but large amount of clotted blood in rectum. Start miralax TID and try to clear stool. GI consult on board with no plan to scope. - 04/08 given tap water and mineral oil enema, but no BM - 04/09 check KUB: Stool is again noted within the rectum, huge but bloody bowel movement after hypaque enema, Hgb trended down to 6.7, receive 1 unit prbc - 04/10 Hgb 8.3, sigmoidoscopy Preparation of the colon was inadequate. Blood and clots seen in recto-sigmoid colon. Ulcerated, ooozing mucosa in the distal rectum. Treated with goldprobe. Hemostatic spray applied. Avoid AC and ASA for 2 days per GI. Avoid enema, continue PO bowel regimen - 04/11 continued rectal bleed, Hgb down to 6.6, given prbc, d/w GI and consulted CRS - limited options, gelfoam soaked with epi plug per rectum applied, not surgical candidate. Continue huge/large bleeding with dark blood and large clots, given 3 units prbc and 1 unit platelet to help with hemostasis (as still within 5 days after Plavix held), Hgb maintained between 8-9.6, BP stable. See significant event notes 04/12 Colonoscopy done: Clotted blood was found in the rectum. A large area of ulcerated mucosa was found in the rectum with adherent clot. Oozing was present. The clot was not removed. To stop active bleeding, hemostatic spray was deployed. Two sprays were applied. There was no bleeding at the end of the procedure. Multiple small-mouthed diverticula were found in the sigmoid colon. Multiple polyps were seen in the colon throughout the procedure. Avoid fecal management devices or any enemas x 48 hours. Consider sucralfate enemas after 48 hours to aid in ulcer healing. Repeat colonoscopy non-urgently when patient is out of the hospital for polypectomy. Monitor, start clear diet, continue every 6 hrs CBC 04/15 Still with moderate amount of bleeding with dark blood and clots, Hgb however is stable, noticed slowed down with NPO, patient no appetite and prefer to be NPO for now and monitor Gradually increased diet from 04/16-04/24 Consider resumption of plavix. Cardiology consult advised no plavix, start ECASA 81mg Blood count stable since starting aspirin Planning eventual polypectomy with GI as an outpatient. Had a BM 05/05 --Continue Miralax/senna prn Assessment & Plan (05/08/2025 7:40 AM CDT): Patient with bloody liquid from rectum late afternoon 04/07. Following Hgb 10.4->10.1->9.9->9.4->9.6. CTA of abd-pelvis did not reveal active bleeding source but lots of stool and what appeared to be stool ball in rectum. Digital exam did not reach stool but large amount of clotted blood in rectum. Start miralax TID and try to clear stool. GI consult on board with no plan to scope. - 04/08 given tap water and mineral oil enema, but no BM - 04/09 check KUB: Stool is again noted within the rectum, huge but bloody bowel movement after hypaque enema, Hgb trended down to 6.7, receive 1 unit prbc - 04/10 Hgb 8.3, sigmoidoscopy Preparation of the colon was inadequate. Blood and clots seen in recto-sigmoid colon. Ulcerated, ooozing mucosa in the distal rectum. Treated with goldprobe. Hemostatic spray applied. Avoid AC and ASA for 2 days per GI. Avoid enema, continue PO bowel regimen - 04/11 continued rectal bleed, Hgb down to 6.6, given prbc, d/w GI and consulted CRS - limited options, gelfoam soaked with epi plug per rectum applied, not surgical candidate. Continue huge/large bleeding with dark blood and large clots, given 3 units prbc and 1 unit platelet to help with hemostasis (as still within 5 days after Plavix held), Hgb maintained between 8-9.6, BP stable. See significant event notes 04/12 Colonoscopy done: Clotted blood was found in the rectum. A large area of ulcerated mucosa was found in the rectum with adherent clot. Oozing was present. The clot was not removed. To stop active bleeding, hemostatic spray was deployed. Two sprays were applied. There was no bleeding at the end of the procedure. Multiple small-mouthed diverticula were found in the sigmoid colon. Multiple polyps were seen in the colon throughout the procedure. Avoid fecal management devices or any enemas x 48 hours. Consider sucralfate enemas after 48 hours to aid in ulcer healing. Repeat colonoscopy non-urgently when patient is out of the hospital for polypectomy. Monitor, start clear diet, continue every 6 hrs CBC 04/15 Still with moderate amount of bleeding with dark blood and clots, Hgb however is stable, noticed slowed down with NPO, patient no appetite and prefer to be NPO for now and monitor Gradually increased diet from 04/16-04/24 Consider resumption of plavix. Cardiology consult advised no plavix, start ECASA 81mg Blood count stable since starting aspirin Planning eventual polypectomy with GI as an outpatient. Had a BM 05/05 --Continue Miralax/senna prn Assessment & Plan (05/07/2025 7:31 AM CDT): Patient with bloody liquid from rectum late afternoon 04/07. Following Hgb 10.4->10.1->9.9->9.4->9.6. CTA of abd-pelvis did not reveal active bleeding source but lots of stool and what appeared to be stool ball in rectum. Digital exam did not reach stool but large amount of clotted blood in rectum. Start miralax TID and try to clear stool. GI consult on board with no plan to scope. - 04/08 given tap water and mineral oil enema, but no BM - 04/09 check KUB: Stool is again noted within the rectum, huge but bloody bowel movement after hypaque enema, Hgb trended down to 6.7, receive 1 unit prbc - 04/10 Hgb 8.3, sigmoidoscopy Preparation of the colon was inadequate. Blood and clots seen in recto-sigmoid colon. Ulcerated, ooozing mucosa in the distal rectum. Treated with goldprobe. Hemostatic spray applied. Avoid AC and ASA for 2 days per GI. Avoid enema, continue PO bowel regimen - 04/11 continued rectal bleed, Hgb down to 6.6, given prbc, d/w GI and consulted CRS - limited options, gelfoam soaked with epi plug per rectum applied, not surgical candidate. Continue huge/large bleeding with dark blood and large clots, given 3 units prbc and 1 unit platelet to help with hemostasis (as still within 5 days after Plavix held), Hgb maintained between 8-9.6, BP stable. See significant event notes 04/12 Colonoscopy done: Clotted blood was found in the rectum. A large area of ulcerated mucosa was found in the rectum with adherent clot. Oozing was present. The clot was not removed. To stop active bleeding, hemostatic spray was deployed. Two sprays were applied. There was no bleeding at the end of the procedure. Multiple small-mouthed diverticula were found in the sigmoid colon. Multiple polyps were seen in the colon throughout the procedure. Avoid fecal management devices or any enemas x 48 hours. Consider sucralfate enemas after 48 hours to aid in ulcer healing. Repeat colonoscopy non-urgently when patient is out of the hospital for polypectomy. Monitor, start clear diet, continue every 6 hrs CBC 04/15 Still with moderate amount of bleeding with dark blood and clots, Hgb however is stable, noticed slowed down with NPO, patient no appetite and prefer to be NPO for now and monitor Gradually increased diet from 04/16-04/24 Consider resumption of plavix. Cardiology consult advised no plavix, start ECASA 81mg Blood count stable since starting aspirin Planning eventual polypectomy with GI as an outpatient. Had a BM 05/05 --Continue Miralax/senna prn Assessment & Plan (05/06/2025 4:49 PM CDT): Patient with bloody liquid from rectum late afternoon 04/07. Following Hgb 10.4->10.1->9.9->9.4->9.6. CTA of abd-pelvis did not reveal active bleeding source but lots of stool and what appeared to be stool ball in rectum. Digital exam did not reach stool but large amount of clotted blood in rectum. Start miralax TID and try to clear stool. GI consult on board with no plan to scope. - 04/08 given tap water and mineral oil enema, but no BM - 04/09 check KUB: Stool is again noted within the rectum, huge but bloody bowel movement after hypaque enema, Hgb trended down to 6.7, receive 1 unit prbc - 04/10 Hgb 8.3, sigmoidoscopy Preparation of the colon was inadequate. Blood and clots seen in recto-sigmoid colon. Ulcerated, ooozing mucosa in the distal rectum. Treated with goldprobe. Hemostatic spray applied. Avoid AC and ASA for 2 days per GI. Avoid enema, continue PO bowel regimen - 04/11 continued rectal bleed, Hgb down to 6.6, given prbc, d/w GI and consulted CRS - limited options, gelfoam soaked with epi plug per rectum applied, not surgical candidate. Continue huge/large bleeding with dark blood and large clots, given 3 units prbc and 1 unit platelet to help with hemostasis (as still within 5 days after Plavix held), Hgb maintained between 8-9.6, BP stable. See significant event notes 04/12 Colonoscopy done: Clotted blood was found in the rectum. A large area of ulcerated mucosa was found in the rectum with adherent clot. Oozing was present. The clot was not removed. To stop active bleeding, hemostatic spray was deployed. Two sprays were applied. There was no bleeding at the end of the procedure. Multiple small-mouthed diverticula were found in the sigmoid colon. Multiple polyps were seen in the colon throughout the procedure. Avoid fecal management devices or any enemas x 48 hours. Consider sucralfate enemas after 48 hours to aid in ulcer healing. Repeat colonoscopy non-urgently when patient is out of the hospital for polypectomy. Monitor, start clear diet, continue every 6 hrs CBC 04/15 Still with moderate amount of bleeding with dark blood and clots, Hgb however is stable, noticed slowed down with NPO, patient no appetite and prefer to be NPO for now and monitor Gradually increased diet from 04/16-04/24 Consider resumption of plavix. Cardiology consult advised no plavix, start ECASA 81mg Blood count stable since starting aspirin Planning eventual polypectomy with GI as an outpatient. Had a BM 05/05 --Continue Miralax/senna prn Assessment & Plan (05/05/2025 3:50 PM CDT): Patient with bloody liquid from rectum late afternoon 04/07. Following Hgb 10.4->10.1->9.9->9.4->9.6. CTA of abd-pelvis did not reveal active bleeding source but lots of stool and what appeared to be stool ball in rectum. Digital exam did not reach stool but large amount of clotted blood in rectum. Start miralax TID and try to clear stool. GI consult on board with no plan to scope. - 04/08 given tap water and mineral oil enema, but no BM - 04/09 check KUB: Stool is again noted within the rectum, huge but bloody bowel movement after hypaque enema, Hgb trended down to 6.7, receive 1 unit prbc - 04/10 Hgb 8.3, sigmoidoscopy Preparation of the colon was inadequate. Blood and clots seen in recto-sigmoid colon. Ulcerated, ooozing mucosa in the distal rectum. Treated with goldprobe. Hemostatic spray applied. Avoid AC and ASA for 2 days per GI. Avoid enema, continue PO bowel regimen - 04/11 continued rectal bleed, Hgb down to 6.6, given prbc, d/w GI and consulted CRS - limited options, gelfoam soaked with epi plug per rectum applied, not surgical candidate. Continue huge/large bleeding with dark blood and large clots, given 3 units prbc and 1 unit platelet to help with hemostasis (as still within 5 days after Plavix held), Hgb maintained between 8-9.6, BP stable. See significant event notes 04/12 Colonoscopy done: Clotted blood was found in the rectum. A large area of ulcerated mucosa was found in the rectum with adherent clot. Oozing was present. The clot was not removed. To stop active bleeding, hemostatic spray was deployed. Two sprays were applied. There was no bleeding at the end of the procedure. Multiple small-mouthed diverticula were found in the sigmoid colon. Multiple polyps were seen in the colon throughout the procedure. Avoid fecal management devices or any enemas x 48 hours. Consider sucralfate enemas after 48 hours to aid in ulcer healing. Repeat colonoscopy non-urgently when patient is out of the hospital for polypectomy. Monitor, start clear diet, continue every 6 hrs CBC 04/15 Still with moderate amount of bleeding with dark blood and clots, Hgb however is stable, noticed slowed down with NPO, patient no appetite and prefer to be NPO for now and monitor Gradually increased diet from 04/16-04/24 Consider resumption of plavix. Cardiology consult advised no plavix, start ECASA 81mg Blood count stable since starting aspirin, 8.8-10.2 in the last 4 days, 9.1 today Planning eventual polypectomy with GI as an outpatient. Had a BM 05/05 --Continue Miralax prn Assessment & Plan (05/04/2025 3:57 PM CDT): Patient with bloody liquid from rectum late afternoon 04/07. Following Hgb 10.4->10.1->9.9->9.4->9.6. CTA of abd-pelvis did not reveal active bleeding source but lots of stool and what appeared to be stool ball in rectum. Digital exam did not reach stool but large amount of clotted blood in rectum. Start miralax TID and try to clear stool. GI consult on board with no plan to scope. - 04/08 given tap water and mineral oil enema, but no BM - 04/09 check KUB: Stool is again noted within the rectum, huge but bloody bowel movement after hypaque enema, Hgb trended down to 6.7, receive 1 unit prbc - 04/10 Hgb 8.3, sigmoidoscopy Preparation of the colon was inadequate. Blood and clots seen in recto-sigmoid colon. Ulcerated, ooozing mucosa in the distal rectum. Treated with goldprobe. Hemostatic spray applied. Avoid AC and ASA for 2 days per GI. Avoid enema, continue PO bowel regimen - 04/11 continued rectal bleed, Hgb down to 6.6, given prbc, d/w GI and consulted CRS - limited options, gelfoam soaked with epi plug per rectum applied, not surgical candidate. Continue huge/large bleeding with dark blood and large clots, given 3 units prbc and 1 unit platelet to help with hemostasis (as still within 5 days after Plavix held), Hgb maintained between 8-9.6, BP stable. See significant event notes 04/12 Colonoscopy done: Clotted blood was found in the rectum. A large area of ulcerated mucosa was found in the rectum with adherent clot. Oozing was present. The clot was not removed. To stop active bleeding, hemostatic spray was deployed. Two sprays were applied. There was no bleeding at the end of the procedure. Multiple small-mouthed diverticula were found in the sigmoid colon. Multiple polyps were seen in the colon throughout the procedure. Avoid fecal management devices or any enemas x 48 hours. Consider sucralfate enemas after 48 hours to aid in ulcer healing. Repeat colonoscopy non-urgently when patient is out of the hospital for polypectomy. Monitor, start clear diet, continue every 6 hrs CBC 04/15 Still with moderate amount of bleeding with dark blood and clots, Hgb however is stable, noticed slowed down with NPO, patient no appetite and prefer to be NPO for now and monitor Gradually increased diet from 04/16-04/24 Consider resumption of plavix. Cardiology consult advised no plavix, start ECASA 81mg Blood count stable since starting aspirin, 8.8-10.2 in the last 4 days, 9.1 today Planning eventual polypectomy with GI as an outpatient. Assessment & Plan (05/03/2025 1:22 PM CDT): Patient with bloody liquid from rectum late afternoon 04/07. Following Hgb 10.4->10.1->9.9->9.4->9.6. CTA of abd-pelvis did not reveal active bleeding source but lots of stool and what appeared to be stool ball in rectum. Digital exam did not reach stool but large amount of clotted blood in rectum. Start miralax TID and try to clear stool. GI consult on board with no plan to scope. - 04/08 given tap water and mineral oil enema, but no BM - 04/09 check KUB: Stool is again noted within the rectum, huge but bloody bowel movement after hypaque enema, Hgb trended down to 6.7, receive 1 unit prbc - 04/10 Hgb 8.3, sigmoidoscopy Preparation of the colon was inadequate. Blood and clots seen in recto-sigmoid colon. Ulcerated, ooozing mucosa in the distal rectum. Treated with goldprobe. Hemostatic spray applied. Avoid AC and ASA for 2 days per GI. Avoid enema, continue PO bowel regimen - 04/11 continued rectal bleed, Hgb down to 6.6, given prbc, d/w GI and consulted CRS - limited options, gelfoam soaked with epi plug per rectum applied, not surgical candidate. Continue huge/large bleeding with dark blood and large clots, given 3 units prbc and 1 unit platelet to help with hemostasis (as still within 5 days after Plavix held), Hgb maintained between 8-9.6, BP stable. See significant event notes 04/12 Colonoscopy done: Clotted blood was found in the rectum. A large area of ulcerated mucosa was found in the rectum with adherent clot. Oozing was present. The clot was not removed. To stop active bleeding, hemostatic spray was deployed. Two sprays were applied. There was no bleeding at the end of the procedure. Multiple small-mouthed diverticula were found in the sigmoid colon. Multiple polyps were seen in the colon throughout the procedure. Avoid fecal management devices or any enemas x 48 hours. Consider sucralfate enemas after 48 hours to aid in ulcer healing. Repeat colonoscopy non-urgently when patient is out of the hospital for polypectomy. Monitor, start clear diet, continue every 6 hrs CBC 04/15 Still with moderate amount of bleeding with dark blood and clots, Hgb however is stable, noticed slowed down with NPO, patient no appetite and prefer to be NPO for now and monitor Gradually increased diet from 04/16-04/24 Consider resumption of plavix. Cardiology consult advised no plavix, start ECASA 81mg Blood count stable since starting aspirin, 9.1/28.6 Planning eventual polypectomy with GI as an outpatient. Assessment & Plan (05/02/2025 1:13 PM CDT): Patient with bloody liquid from rectum late afternoon 04/07. Following Hgb 10.4->10.1->9.9->9.4->9.6. CTA of abd-pelvis did not reveal active bleeding source but lots of stool and what appeared to be stool ball in rectum. Digital exam did not reach stool but large amount of clotted blood in rectum. Start miralax TID and try to clear stool. GI consult on board with no plan to scope. - 04/08 given tap water and mineral oil enema, but no BM - 04/09 check KUB: Stool is again noted within the rectum, huge but bloody bowel movement after hypaque enema, Hgb trended down to 6.7, receive 1 unit prbc - 04/10 Hgb 8.3, sigmoidoscopy Preparation of the colon was inadequate. Blood and clots seen in recto-sigmoid colon. Ulcerated, ooozing mucosa in the distal rectum. Treated with goldprobe. Hemostatic spray applied. Avoid AC and ASA for 2 days per GI. Avoid enema, continue PO bowel regimen - 04/11 continued rectal bleed, Hgb down to 6.6, given prbc, d/w GI and consulted CRS - limited options, gelfoam soaked with epi plug per rectum applied, not surgical candidate. Continue huge/large bleeding with dark blood and large clots, given 3 units prbc and 1 unit platelet to help with hemostasis (as still within 5 days after Plavix held), Hgb maintained between 8-9.6, BP stable. See significant event notes 04/12 Colonoscopy done: Clotted blood was found in the rectum. A large area of ulcerated mucosa was found in the rectum with adherent clot. Oozing was present. The clot was not removed. To stop active bleeding, hemostatic spray was deployed. Two sprays were applied. There was no bleeding at the end of the procedure. Multiple small-mouthed diverticula were found in the sigmoid colon. Multiple polyps were seen in the colon throughout the procedure. Avoid fecal management devices or any enemas x 48 hours. Consider sucralfate enemas after 48 hours to aid in ulcer healing. Repeat colonoscopy non-urgently when patient is out of the hospital for polypectomy. Monitor, start clear diet, continue every 6 hrs CBC 04/15 Still with moderate amount of bleeding with dark blood and clots, Hgb however is stable, noticed slowed down with NPO, patient no appetite and prefer to be NPO for now and monitor Gradually increased diet from 04/16-04/23 Hgb stable 04/24: Hgb=9.7. Consider resumption of plavix. Cardiology consult advised no plavix, start ECASA 81mg Blood count stable since starting aspirin, 9.11/13.6 Planning eventual polypectomy with GI as an outpatient. Assessment & Plan (04/30/2025 5:18 PM CDT): Patient with bloody liquid from rectum late afternoon 04/07. Following Hgb 10.4->10.1->9.9->9.4->9.6. CTA of abd-pelvis did not reveal active bleeding source but lots of stool and what appeared to be stool ball in rectum. Digital exam did not reach stool but large amount of clotted blood in rectum. Start miralax TID and try to clear stool. GI consult on board with no plan to scope. - 04/08 given tap water and mineral oil enema, but no BM - 04/09 check KUB: Stool is again noted within the rectum, huge but bloody bowel movement after hypaque enema, Hgb trended down to 6.7, receive 1 unit prbc - 04/10 Hgb 8.3, sigmoidoscopy Preparation of the colon was inadequate. Blood and clots seen in recto-sigmoid colon. Ulcerated, ooozing mucosa in the distal rectum. Treated with goldprobe. Hemostatic spray applied. Avoid AC and ASA for 2 days per GI. Avoid enema, continue PO bowel regimen - 04/11 continued rectal bleed, Hgb down to 6.6, given prbc, d/w GI and consulted CRS - limited options, gelfoam soaked with epi plug per rectum applied, not surgical candidate. Continue huge/large bleeding with dark blood and large clots, given 3 units prbc and 1 unit platelet to help with hemostasis (as still within 5 days after Plavix held), Hgb maintained between 8-9.6, BP stable. See significant event notes 04/12 Colonoscopy done: Clotted blood was found in the rectum. A large area of ulcerated mucosa was found in the rectum with adherent clot. Oozing was present. The clot was not removed. To stop active bleeding, hemostatic spray was deployed. Two sprays were applied. There was no bleeding at the end of the procedure. Multiple small-mouthed diverticula were found in the sigmoid colon. Multiple polyps were seen in the colon throughout the procedure. Avoid fecal management devices or any enemas x 48 hours. Consider sucralfate enemas after 48 hours to aid in ulcer healing. Repeat colonoscopy non-urgently when patient is out of the hospital for polypectomy. Monitor, start clear diet, continue every 6 hrs CBC 04/15 Still with moderate amount of bleeding with dark blood and clots, Hgb however is stable, noticed slowed down with NPO, patient no appetite and prefer to be NPO for now and monitor Gradually increased diet from 04/16-04/23 Hgb stable 04/24: Hgb=9.7. Consider resumption of plavix. Cardiology consult advised no plavix, start ECASA 81mg Blood count stable since starting aspirin Planning eventual polypectomy with GI as an outpatient. Assessment & Plan (04/29/2025 10:33 AM CDT): Patient with bloody liquid from rectum late afternoon 04/07. Following Hgb 10.4->10.1->9.9->9.4->9.6. CTA of abd-pelvis did not reveal active bleeding source but lots of stool and what appeared to be stool ball in rectum. Digital exam did not reach stool but large amount of clotted blood in rectum. Start miralax TID and try to clear stool. GI consult on board with no plan to scope. - 04/08 given tap water and mineral oil enema, but no BM - 04/09 check KUB: Stool is again noted within the rectum, huge but bloody bowel movement after hypaque enema, Hgb trended down to 6.7, receive 1 unit prbc - 04/10 Hgb 8.3, sigmoidoscopy Preparation of the colon was inadequate. Blood and clots seen in recto-sigmoid colon. Ulcerated, ooozing mucosa in the distal rectum. Treated with goldprobe. Hemostatic spray applied. Avoid AC and ASA for 2 days per GI. Avoid enema, continue PO bowel regimen - 04/11 continued rectal bleed, Hgb down to 6.6, given prbc, d/w GI and consulted CRS - limited options, gelfoam soaked with epi plug per rectum applied, not surgical candidate. Continue huge/large bleeding with dark blood and large clots, given 3 units prbc and 1 unit platelet to help with hemostasis (as still within 5 days after Plavix held), Hgb maintained between 8-9.6, BP stable. See significant event notes - 04/12 Colonoscopy done: Clotted blood was found in the rectum. A large area of ulcerated mucosa was found in the rectum with adherent clot. Oozing was present. The clot was not removed. To stop active bleeding, hemostatic spray was deployed. Two sprays were applied. There was no bleeding at the end of the procedure. Multiple small-mouthed diverticula were found in the sigmoid colon. Multiple polyps were seen in the colon throughout the procedure. Avoid fecal management devices or any enemas x 48 hours. Consider sucralfate enemas after 48 hours to aid in ulcer healing. Repeat colonoscopy non-urgently when patient is out of the hospital for polypectomy. Monitor, start clear diet, continue every 6 hrs CBC -04/15 Still with moderate amount of bleeding with dark blood and clots, Hgb however is stable, noticed slowed down with NPO, patient no appetite and prefer to be NPO for now and monitor 7-1 sips of clears 7-2 stable, stools brown- start clear liquids and monitor 7-3 tolerating clears, brown stools, wants to wait before advancing diet. Hgb stable 7-4 continue clears- stools brown 7-5 advance diet to full liquid, monitor-no bleed, does not want to advance 04/23: Hgb=8.8 advance to regular diet and monitor 04/24: Hgb=9.7. Consider resumption of plavix. Cardiology consult advised no plavix, start ECASA 81mg 04/25. 04/25 Hgb=8.8 04/26 Hgb=8.9 04/27 Hgb=10.2 04/29 Hgb=8.8 no sign of bleeding Assessment & Plan (04/28/2025 11:48 AM CDT): Patient with bloody liquid from rectum late afternoon 04/07. Following Hgb 10.4->10.1->9.9->9.4->9.6. CTA of abd-pelvis did not reveal active bleeding source but lots of stool and what appeared to be stool ball in rectum. Digital exam did not reach stool but large amount of clotted blood in rectum. Start miralax TID and try to clear stool. GI consult on board with no plan to scope. - 04/08 given tap water and mineral oil enema, but no BM - 04/09 check KUB: Stool is again noted within the rectum, huge but bloody bowel movement after hypaque enema, Hgb trended down to 6.7, receive 1 unit prbc - 04/10 Hgb 8.3, sigmoidoscopy Preparation of the colon was inadequate. Blood and clots seen in recto-sigmoid colon. Ulcerated, ooozing mucosa in the distal rectum. Treated with goldprobe. Hemostatic spray applied. Avoid AC and ASA for 2 days per GI. Avoid enema, continue PO bowel regimen - 04/11 continued rectal bleed, Hgb down to 6.6, given prbc, d/w GI and consulted CRS - limited options, gelfoam soaked with epi plug per rectum applied, not surgical candidate. Continue huge/large bleeding with dark blood and large clots, given 3 units prbc and 1 unit platelet to help with hemostasis (as still within 5 days after Plavix held), Hgb maintained between 8-9.6, BP stable. See significant event notes - 04/12 Colonoscopy done: Clotted blood was found in the rectum. A large area of ulcerated mucosa was found in the rectum with adherent clot. Oozing was present. The clot was not removed. To stop active bleeding, hemostatic spray was deployed. Two sprays were applied. There was no bleeding at the end of the procedure. Multiple small-mouthed diverticula were found in the sigmoid colon. Multiple polyps were seen in the colon throughout the procedure. Avoid fecal management devices or any enemas x 48 hours. Consider sucralfate enemas after 48 hours to aid in ulcer healing. Repeat colonoscopy non-urgently when patient is out of the hospital for polypectomy. Monitor, start clear diet, continue every 6 hrs CBC -04/15 Still with moderate amount of bleeding with dark blood and clots, Hgb however is stable, noticed slowed down with NPO, patient no appetite and prefer to be NPO for now and monitor 7-1 sips of clears 7-2 stable, stools brown- start clear liquids and monitor 7-3 tolerating clears, brown stools, wants to wait before advancing diet. Hgb stable 7-4 continue clears- stools brown 7- advance diet to full liquid, monitor-no bleed, does not want to advance 04/23: Hgb=8.8 advance to regular diet and monitor 04/24: Hgb=9.7. Consider resumption of plavix. Cardiology consult advised no plavix, start ECASA 81mg 04/25. 04/25 Hgb=8.8 04/26 Hgb=8.9 no sign of bleeding 04/27 Hgb=10.2 Assessment & Plan (04/27/2025 9:58 AM CDT): Patient with bloody liquid from rectum late afternoon 04/07. Following Hgb 10.4->10.1->9.9->9.4->9.6. CTA of abd-pelvis did not reveal active bleeding source but lots of stool and what appeared to be stool ball in rectum. Digital exam did not reach stool but large amount of clotted blood in rectum. Start miralax TID and try to clear stool. GI consult on board with no plan to scope. - 04/08 given tap water and mineral oil enema, but no BM - 04/09 check KUB: Stool is again noted within the rectum, huge but bloody bowel movement after hypaque enema, Hgb trended down to 6.7, receive 1 unit prbc - 04/10 Hgb 8.3, sigmoidoscopy Preparation of the colon was inadequate. Blood and clots seen in recto-sigmoid colon. Ulcerated, ooozing mucosa in the distal rectum. Treated with goldprobe. Hemostatic spray applied. Avoid AC and ASA for 2 days per GI. Avoid enema, continue PO bowel regimen - 04/11 continued rectal bleed, Hgb down to 6.6, given prbc, d/w GI and consulted CRS - limited options, gelfoam soaked with epi plug per rectum applied, not surgical candidate. Continue huge/large bleeding with dark blood and large clots, given 3 units prbc and 1 unit platelet to help with hemostasis (as still within 5 days after Plavix held), Hgb maintained between 8-9.6, BP stable. See significant event notes - 04/12 Colonoscopy done: Clotted blood was found in the rectum. A large area of ulcerated mucosa was found in the rectum with adherent clot. Oozing was present. The clot was not removed. To stop active bleeding, hemostatic spray was deployed. Two sprays were applied. There was no bleeding at the end of the procedure. Multiple small-mouthed diverticula were found in the sigmoid colon. Multiple polyps were seen in the colon throughout the procedure. Avoid fecal management devices or any enemas x 48 hours. Consider sucralfate enemas after 48 hours to aid in ulcer healing. Repeat colonoscopy non-urgently when patient is out of the hospital for polypectomy. Monitor, start clear diet, continue every 6 hrs CBC -04/15 Still with moderate amount of bleeding with dark blood and clots, Hgb however is stable, noticed slowed down with NPO, patient no appetite and prefer to be NPO for now and monitor 7-1 sips of clears 7-2 stable, stools brown- start clear liquids and monitor 7-3 tolerating clears, brown stools, wants to wait before advancing diet. Hgb stable 7-4 continue clears- stools brown 7-5 advance diet to full liquid, monitor-no bleed, does not want to advance 04/23: Hgb=8.8 advance to regular diet and monitor 04/24: Hgb=9.7. Consider resumption of plavix. Cardiology consult advised no plavix, start ECASA 81mg 04/25. 04/25 Hgb=8.8 04/26 Hgb=8.9 no sign of bleeding 04/27 Hgb=10.2 Assessment & Plan (04/26/2025 10:07 AM CDT): Patient with bloody liquid from rectum late afternoon 04/07. Following Hgb 10.4->10.1->9.9->9.4->9.6. CTA of abd-pelvis did not reveal active bleeding source but lots of stool and what appeared to be stool ball in rectum. Digital exam did not reach stool but large amount of clotted blood in rectum. Start miralax TID and try to clear stool. GI consult on board with no plan to scope. - 04/08 given tap water and mineral oil enema, but no BM - 04/09 check KUB: Stool is again noted within the rectum, huge but bloody bowel movement after hypaque enema, Hgb trended down to 6.7, receive 1 unit prbc - 04/10 Hgb 8.3, sigmoidoscopy Preparation of the colon was inadequate. Blood and clots seen in recto-sigmoid colon. Ulcerated, ooozing mucosa in the distal rectum. Treated with goldprobe. Hemostatic spray applied. Avoid AC and ASA for 2 days per GI. Avoid enema, continue PO bowel regimen - 04/11 continued rectal bleed, Hgb down to 6.6, given prbc, d/w GI and consulted CRS - limited options, gelfoam soaked with epi plug per rectum applied, not surgical candidate. Continue huge/large bleeding with dark blood and large clots, given 3 units prbc and 1 unit platelet to help with hemostasis (as still within 5 days after Plavix held), Hgb maintained between 8-9.6, BP stable. See significant event notes - 04/12 Colonoscopy done: Clotted blood was found in the rectum. A large area of ulcerated mucosa was found in the rectum with adherent clot. Oozing was present. The clot was not removed. To stop active bleeding, hemostatic spray was deployed. Two sprays were applied. There was no bleeding at the end of the procedure. Multiple small-mouthed diverticula were found in the sigmoid colon. Multiple polyps were seen in the colon throughout the procedure. Avoid fecal management devices or any enemas x 48 hours. Consider sucralfate enemas after 48 hours to aid in ulcer healing. Repeat colonoscopy non-urgently when patient is out of the hospital for polypectomy. Monitor, start clear diet, continue every 6 hrs CBC -04/15 Still with moderate amount of bleeding with dark blood and clots, Hgb however is stable, noticed slowed down with NPO, patient no appetite and prefer to be NPO for now and monitor 7-1 sips of clears 7-2 stable, stools brown- start clear liquids and monitor 7-3 tolerating clears, brown stools, wants to wait before advancing diet. Hgb stable 7-4 continue clears- stools brown 7- advance diet to full liquid, monitor-no bleed, does not want to advance 04/23: Hgb=8.8 advance to regular diet and monitor 04/24: Hgb=9.7. Consider resumption of plavix. Cardiology consult advised no plavix, start ECASA 81mg 04/25. 04/25 Hgb=8.8 04/26 Hgb=8.9 no sign of bleeding Assessment & Plan (04/25/2025 10:43 AM CDT): Patient with bloody liquid from rectum late afternoon 04/07. Following Hgb 10.4->10.1->9.9->9.4->9.6. CTA of abd-pelvis did not reveal active bleeding source but lots of stool and what appeared to be stool ball in rectum. Digital exam did not reach stool but large amount of clotted blood in rectum. Start miralax TID and try to clear stool. GI consult on board with no plan to scope. - 04/08 given tap water and mineral oil enema, but no BM - 04/09 check KUB: Stool is again noted within the rectum, huge but bloody bowel movement after hypaque enema, Hgb trended down to 6.7, receive 1 unit prbc - 04/10 Hgb 8.3, sigmoidoscopy Preparation of the colon was inadequate. Blood and clots seen in recto-sigmoid colon. Ulcerated, ooozing mucosa in the distal rectum. Treated with goldprobe. Hemostatic spray applied. Avoid AC and ASA for 2 days per GI. Avoid enema, continue PO bowel regimen - 04/11 continued rectal bleed, Hgb down to 6.6, given prbc, d/w GI and consulted CRS - limited options, gelfoam soaked with epi plug per rectum applied, not surgical candidate. Continue huge/large bleeding with dark blood and large clots, given 3 units prbc and 1 unit platelet to help with hemostasis (as still within 5 days after Plavix held), Hgb maintained between 8-9.6, BP stable. See significant event notes - 04/12 Colonoscopy done: Clotted blood was found in the rectum. A large area of ulcerated mucosa was found in the rectum with adherent clot. Oozing was present. The clot was not removed. To stop active bleeding, hemostatic spray was deployed. Two sprays were applied. There was no bleeding at the end of the procedure. Multiple small-mouthed diverticula were found in the sigmoid colon. Multiple polyps were seen in the colon throughout the procedure. Avoid fecal management devices or any enemas x 48 hours. Consider sucralfate enemas after 48 hours to aid in ulcer healing. Repeat colonoscopy non-urgently when patient is out of the hospital for polypectomy. Monitor, start clear diet, continue every 6 hrs CBC -04/15 Still with moderate amount of bleeding with dark blood and clots, Hgb however is stable, noticed slowed down with NPO, patient no appetite and prefer to be NPO for now and monitor 7-1 sips of clears 7-2 stable, stools brown- start clear liquids and monitor 7-3 tolerating clears, brown stools, wants to wait before advancing diet. Hgb stable 7-4 continue clears- stools brown 7-5 advance diet to full liquid, monitor-no bleed, does not want to advance 04/23: advance to regular diet and monitor 04/24: Hgb=9.7. Consider resumption of plavix. Cardiology consult advised no plavix, start ECASA 81mg 04/25. Assessment & Plan (04/24/2025 11:01 AM CDT): Patient with bloody liquid from rectum late afternoon 04/07. Following Hgb 10.4->10.1->9.9->9.4->9.6. CTA of abd-pelvis did not reveal active bleeding source but lots of stool and what appeared to be stool ball in rectum. Digital exam did not reach stool but large amount of clotted blood in rectum. Start miralax TID and try to clear stool. GI consult on board with no plan to scope. - 04/08 given tap water and mineral oil enema, but no BM - 04/09 check KUB: Stool is again noted within the rectum, huge but bloody bowel movement after hypaque enema, Hgb trended down to 6.7, receive 1 unit prbc - 04/10 Hgb 8.3, sigmoidoscopy Preparation of the colon was inadequate. Blood and clots seen in recto-sigmoid colon. Ulcerated, ooozing mucosa in the distal rectum. Treated with goldprobe. Hemostatic spray applied. Avoid AC and ASA for 2 days per GI. Avoid enema, continue PO bowel regimen - 04/11 continued rectal bleed, Hgb down to 6.6, given prbc, d/w GI and consulted CRS - limited options, gelfoam soaked with epi plug per rectum applied, not surgical candidate. Continue huge/large bleeding with dark blood and large clots, given 3 units prbc and 1 unit platelet to help with hemostasis (as still within 5 days after Plavix held), Hgb maintained between 8-9.6, BP stable. See significant event notes - 04/12 Colonoscopy done: Clotted blood was found in the rectum. A large area of ulcerated mucosa was found in the rectum with adherent clot. Oozing was present. The clot was not removed. To stop active bleeding, hemostatic spray was deployed. Two sprays were applied. There was no bleeding at the end of the procedure. Multiple small-mouthed diverticula were found in the sigmoid colon. Multiple polyps were seen in the colon throughout the procedure. Avoid fecal management devices or any enemas x 48 hours. Consider sucralfate enemas after 48 hours to aid in ulcer healing. Repeat colonoscopy non-urgently when patient is out of the hospital for polypectomy. Monitor, start clear diet, continue every 6 hrs CBC -04/15 Still with moderate amount of bleeding with dark blood and clots, Hgb however is stable, noticed slowed down with NPO, patient no appetite and prefer to be NPO for now and monitor 7-1 sips of clears 7-2 stable, stools brown- start clear liquids and monitor 7-3 tolerating clears, brown stools, wants to wait before advancing diet. Hgb stable 7-4 continue clears- stools brown 7-5 advance diet to full liquid, monitor-no bleed, does not want to advance 7/8: advance to regular diet and monitor 9: Hgb=9.7. Consider resumption of plavix. Assessment & Plan (04/23/2025 2:21 PM CDT): Patient with bloody liquid from rectum late afternoon 04/07. Following Hgb 10.4->10.1->9.9->9.4->9.6. CTA of abd-pelvis did not reveal active bleeding source but lots of stool and what appeared to be stool ball in rectum. Digital exam did not reach stool but large amount of clotted blood in rectum. Start miralax TID and try to clear stool. GI consult on board with no plan to scope. - 04/08 given tap water and mineral oil enema, but no BM - 04/09 check KUB: Stool is again noted within the rectum, huge but bloody bowel movement after hypaque enema, Hgb trended down to 6.7, receive 1 unit prbc - 04/10 Hgb 8.3, sigmoidoscopy Preparation of the colon was inadequate. Blood and clots seen in recto-sigmoid colon. Ulcerated, ooozing mucosa in the distal rectum. Treated with goldprobe. Hemostatic spray applied. Avoid AC and ASA for 2 days per GI. Avoid enema, continue PO bowel regimen - 04/11 continued rectal bleed, Hgb down to 6.6, given prbc, d/w GI and consulted CRS - limited options, gelfoam soaked with epi plug per rectum applied, not surgical candidate. Continue huge/large bleeding with dark blood and large clots, given 3 units prbc and 1 unit platelet to help with hemostasis (as still within 5 days after Plavix held), Hgb maintained between 8-9.6, BP stable. See significant event notes - 04/12 Colonoscopy done: Clotted blood was found in the rectum. A large area of ulcerated mucosa was found in the rectum with adherent clot. Oozing was present. The clot was not removed. To stop active bleeding, hemostatic spray was deployed. Two sprays were applied. There was no bleeding at the end of the procedure. Multiple small-mouthed diverticula were found in the sigmoid colon. Multiple polyps were seen in the colon throughout the procedure. Avoid fecal management devices or any enemas x 48 hours. Consider sucralfate enemas after 48 hours to aid in ulcer healing. Repeat colonoscopy non-urgently when patient is out of the hospital for polypectomy. Monitor, start clear diet, continue every 6 hrs CBC -04/15 Still with moderate amount of bleeding with dark blood and clots, Hgb however is stable, noticed slowed down with NPO, patient no appetite and prefer to be NPO for now and monitor 7-1 sips of clears 7-2 stable, stools brown- start clear liquids and monitor 7-3 tolerating clears, brown stools, wants to wait before advancing diet. Hgb stable 7-4 continue clears- stools brown 7-5 advance diet to full liquid, monitor-no bleed, does not want to advance 7/8: advance to regular diet and monitor Assessment & Plan (04/23/2025 6:07 AM CDT): Patient with bloody liquid from rectum late afternoon 04/07. Following Hgb 10.4->10.1->9.9->9.4->9.6. CTA of abd-pelvis did not reveal active bleeding source but lots of stool and what appeared to be stool ball in rectum. Digital exam did not reach stool but large amount of clotted blood in rectum. Start miralax TID and try to clear stool. GI consult on board with no plan to scope. - 04/08 given tap water and mineral oil enema, but no BM - 04/09 check KUB: Stool is again noted within the rectum, huge but bloody bowel movement after hypaque enema, Hgb trended down to 6.7, receive 1 unit prbc - 04/10 Hgb 8.3, sigmoidoscopy Preparation of the colon was inadequate. Blood and clots seen in recto-sigmoid colon. Ulcerated, ooozing mucosa in the distal rectum. Treated with goldprobe. Hemostatic spray applied. Avoid AC and ASA for 2 days per GI. Avoid enema, continue PO bowel regimen - 04/11 continued rectal bleed, Hgb down to 6.6, given prbc, d/w GI and consulted CRS - limited options, gelfoam soaked with epi plug per rectum applied, no surgical candidate. Continue huge/large bleeding with dark blood and large clots, given 3 units prbc and 1 unit platelet to help with hemostasis (as still within 5 days after Plavix held), Hgb maintained between 8-9.6, BP stable. See significant event notes - 04/12 Colonoscopy done: Clotted blood was found in the rectum. A large area of ulcerated mucosa was found in the rectum with adherent clot. Oozing was present. The clot was not removed. To stop active bleeding, hemostatic spray was deployed. Two sprays were applied. There was no bleeding at the end of the procedure. Multiple small-mouthed diverticula were found in the sigmoid colon. Multiple polyps were seen in the colon throughout the procedure. Avoid fecal management devices or any enemas x 48 hours. Consider sucralfate enemas after 48 hours to aid in ulcer healing. Repeat colonoscopy non-urgently when patient is out of the hospital for polypectomy. Monitor, start clear diet, continue every 6 hrs CBC --30 Still with moderate amount of bleeding with dark blood and clots, Hgb however is stable, noticed slowed down with NPO, patient no appetite and prefer to be NPO for now and monitor 7-1 sips of clears 7-2, stable, stools brown- start clear liquids and monitor 7-3, tolerating clears , brown stools, wants to wait before advancing diet. Hgb stable 7-4 continue clears- stools brown, 7-5 advance diet to full liquid, monitorno bleed, does not want to advance Assessment & Plan (04/21/2025 8:10 PM CDT): Patient with bloody liquid from rectum late afternoon 04/07. Following Hgb 10.4->10.1->9.9->9.4->9.6. CTA of abd-pelvis did not reveal active bleeding source but lots of stool and what appeared to be stool ball in rectum. Digital exam did not reach stool but large amount of clotted blood in rectum. Start miralax TID and try to clear stool. GI consult on board with no plan to scope. - 04/08 given tap water and mineral oil enema, but no BM - 04/09 check KUB: Stool is again noted within the rectum, huge but bloody bowel movement after hypaque enema, Hgb trended down to 6.7, receive 1 unit prbc - 04/10 Hgb 8.3, sigmoidoscopy Preparation of the colon was inadequate. Blood and clots seen in recto-sigmoid colon. Ulcerated, ooozing mucosa in the distal rectum. Treated with goldprobe. Hemostatic spray applied. Avoid AC and ASA for 2 days per GI. Avoid enema, continue PO bowel regimen - 04/11 continued rectal bleed, Hgb down to 6.6, given prbc, d/w GI and consulted CRS - limited options, gelfoam soaked with epi plug per rectum applied, no surgical candidate. Continue huge/large bleeding with dark blood and large clots, given 3 units prbc and 1 unit platelet to help with hemostasis (as still within 5 days after Plavix held), Hgb maintained between 8-9.6, BP stable. See significant event notes - 04/12 Colonoscopy done: Clotted blood was found in the rectum. A large area of ulcerated mucosa was found in the rectum with adherent clot. Oozing was present. The clot was not removed. To stop active bleeding, hemostatic spray was deployed. Two sprays were applied. There was no bleeding at the end of the procedure. Multiple small-mouthed diverticula were found in the sigmoid colon. Multiple polyps were seen in the colon throughout the procedure. Avoid fecal management devices or any enemas x 48 hours. Consider sucralfate enemas after 48 hours to aid in ulcer healing. Repeat colonoscopy non-urgently when patient is out of the hospital for polypectomy. Monitor, start clear diet, continue every 6 hrs CBC -30 Still with moderate amount of bleeding with dark blood and clots, Hgb however is stable, noticed slowed down with NPO, patient no appetite and prefer to be NPO for now and monitor 7-1 sips of clears 7-2, stable, stools brown- start clear liquids and monitor 7-3, tolerating clears , brown stools, wants to wait before advancing diet. Hgb stable 7-4 continue clears- stools brown, 7-5 advance diet to full liquid, monitor Assessment & Plan (04/20/2025 7:27 PM CDT): Patient with bloody liquid from rectum late afternoon 04/07. Following Hgb 10.4->10.1->9.9->9.4->9.6. CTA of abd-pelvis did not reveal active bleeding source but lots of stool and what appeared to be stool ball in rectum. Digital exam did not reach stool but large amount of clotted blood in rectum. Start miralax TID and try to clear stool. GI consult on board with no plan to scope. - 04/08 given tap water and mineral oil enema, but no BM - 04/09 check KUB: Stool is again noted within the rectum, huge but bloody bowel movement after hypaque enema, Hgb trended down to 6.7, receive 1 unit prbc - 04/10 Hgb 8.3, sigmoidoscopy Preparation of the colon was inadequate. Blood and clots seen in recto-sigmoid colon. Ulcerated, ooozing mucosa in the distal rectum. Treated with goldprobe. Hemostatic spray applied. Avoid AC and ASA for 2 days per GI. Avoid enema, continue PO bowel regimen - 04/11 continued rectal bleed, Hgb down to 6.6, given prbc, d/w GI and consulted CRS - limited options, gelfoam soaked with epi plug per rectum applied, no surgical candidate. Continue huge/large bleeding with dark blood and large clots, given 3 units prbc and 1 unit platelet to help with hemostasis (as still within 5 days after Plavix held), Hgb maintained between 8-9.6, BP stable. See significant event notes - 04/12 Colonoscopy done: Clotted blood was found in the rectum. A large area of ulcerated mucosa was found in the rectum with adherent clot. Oozing was present. The clot was not removed. To stop active bleeding, hemostatic spray was deployed. Two sprays were applied. There was no bleeding at the end of the procedure. Multiple small-mouthed diverticula were found in the sigmoid colon. Multiple polyps were seen in the colon throughout the procedure. Avoid fecal management devices or any enemas x 48 hours. Consider sucralfate enemas after 48 hours to aid in ulcer healing. Repeat colonoscopy non-urgently when patient is out of the hospital for polypectomy. Monitor, start clear diet, continue every 6 hrs CBC -6-30 Still with moderate amount of bleeding with dark blood and clots, Hgb however is stable, noticed slowed down with NPO, patient no appetite and prefer to be NPO for now and monitor 7-1 sips of clears 7-2, stable, stools brown- start clear liquids and monitor 7-3, tolerating clears , brown stools, wants to wait before advancing diet. Hgb stable 7-4 continue clears- stools brown, monitor 7-5 advance diet to full liquid Assessment & Plan (04/19/2025 8:18 PM CDT): Patient with bloody liquid from rectum late afternoon 04/07. Following Hgb 10.4->10.1->9.9->9.4->9.6. CTA of abd-pelvis did not reveal active bleeding source but lots of stool and what appeared to be stool ball in rectum. Digital exam did not reach stool but large amount of clotted blood in rectum. Start miralax TID and try to clear stool. GI consult on board with no plan to scope. - 04/08 given tap water and mineral oil enema, but no BM - 04/09 check KUB: Stool is again noted within the rectum, huge but bloody bowel movement after hypaque enema, Hgb trended down to 6.7, receive 1 unit prbc - 04/10 Hgb 8.3, sigmoidoscopy Preparation of the colon was inadequate. Blood and clots seen in recto-sigmoid colon. Ulcerated, ooozing mucosa in the distal rectum. Treated with goldprobe. Hemostatic spray applied. Avoid AC and ASA for 2 days per GI. Avoid enema, continue PO bowel regimen - 04/11 continued rectal bleed, Hgb down to 6.6, given prbc, d/w GI and consulted CRS - limited options, gelfoam soaked with epi plug per rectum applied, no surgical candidate. Continue huge/large bleeding with dark blood and large clots, given 3 units prbc and 1 unit platelet to help with hemostasis (as still within 5 days after Plavix held), Hgb maintained between 8-9.6, BP stable. See significant event notes - 04/12 Colonoscopy done: Clotted blood was found in the rectum. A large area of ulcerated mucosa was found in the rectum with adherent clot. Oozing was present. The clot was not removed. To stop active bleeding, hemostatic spray was deployed. Two sprays were applied. There was no bleeding at the end of the procedure. Multiple small-mouthed diverticula were found in the sigmoid colon. Multiple polyps were seen in the colon throughout the procedure. Avoid fecal management devices or any enemas x 48 hours. Consider sucralfate enemas after 48 hours to aid in ulcer healing. Repeat colonoscopy non-urgently when patient is out of the hospital for polypectomy. Monitor, start clear diet, continue every 6 hrs CBC -04-15 Still with moderate amount of bleeding with dark blood and clots, Hgb however is stable, noticed slowed down with NPO, patient no appetite and prefer to be NPO for now and monitor 7-1 sips of clears 7-2, stable, stools brown- start clear liquids and monitor 7-3, tolerating clears , brown stools, wants to wait before advancing diet. Hgb stable 7-4 continue clears-monitor Assessment & Plan (04/18/2025 7:47 PM CDT): Patient with bloody liquid from rectum late afternoon 04/07. Following Hgb 10.4->10.1->9.9->9.4->9.6. CTA of abd-pelvis did not reveal active bleeding source but lots of stool and what appeared to be stool ball in rectum. Digital exam did not reach stool but large amount of clotted blood in rectum. Start miralax TID and try to clear stool. GI consult on board with no plan to scope. - 04/08 given tap water and mineral oil enema, but no BM - 04/09 check KUB: Stool is again noted within the rectum, huge but bloody bowel movement after hypaque enema, Hgb trended down to 6.7, receive 1 unit prbc - 04/10 Hgb 8.3, sigmoidoscopy Preparation of the colon was inadequate. Blood and clots seen in recto-sigmoid colon. Ulcerated, ooozing mucosa in the distal rectum. Treated with goldprobe. Hemostatic spray applied. Avoid AC and ASA for 2 days per GI. Avoid enema, continue PO bowel regimen - 04/11 continued rectal bleed, Hgb down to 6.6, given prbc, d/w GI and consulted CRS - limited options, gelfoam soaked with epi plug per rectum applied, no surgical candidate. Continue huge/large bleeding with dark blood and large clots, given 3 units prbc and 1 unit platelet to help with hemostasis (as still within 5 days after Plavix held), Hgb maintained between 8-9.6, BP stable. See significant event notes - 04/12 Colonoscopy done: Clotted blood was found in the rectum. A large area of ulcerated mucosa was found in the rectum with adherent clot. Oozing was present. The clot was not removed. To stop active bleeding, hemostatic spray was deployed. Two sprays were applied. There was no bleeding at the end of the procedure. Multiple small-mouthed diverticula were found in the sigmoid colon. Multiple polyps were seen in the colon throughout the procedure. Avoid fecal management devices or any enemas x 48 hours. Consider sucralfate enemas after 48 hours to aid in ulcer healing. Repeat colonoscopy non-urgently when patient is out of the hospital for polypectomy. Monitor, start clear diet, continue every 6 hrs CBC -30 Still with moderate amount of bleeding with dark blood and clots, Hgb however is stable, noticed slowed down with NPO, patient no appetite and prefer to be NPO for now and monitor 7-1 sips of clears 7-2, stable, stools brown- start clear liquids and monitor 7-3, tolerating clears , brown stools, wants to wait befoe advancing diet. Hgb stable Assessment & Plan (04/18/2025 12:22 AM CDT): Patient with bloody liquid from rectum late afternoon 04/07. Following Hgb 10.4->10.1->9.9->9.4->9.6. CTA of abd-pelvis did not reveal active bleeding source but lots of stool and what appeared to be stool ball in rectum. Digital exam did not reach stool but large amount of clotted blood in rectum. Start miralax TID and try to clear stool. GI consult on board with no plan to scope. - 04/08 given tap water and mineral oil enema, but no BM - 04/09 check KUB: Stool is again noted within the rectum, huge but bloody bowel movement after hypaque enema, Hgb trended down to 6.7, receive 1 unit prbc - 04/10 Hgb 8.3, sigmoidoscopy Preparation of the colon was inadequate. Blood and clots seen in recto-sigmoid colon. Ulcerated, ooozing mucosa in the distal rectum. Treated with goldprobe. Hemostatic spray applied. Avoid AC and ASA for 2 days per GI. Avoid enema, continue PO bowel regimen - 04/11 continued rectal bleed, Hgb down to 6.6, given prbc, d/w GI and consulted CRS - limited options, gelfoam soaked with epi plug per rectum applied, no surgical candidate. Continue huge/large bleeding with dark blood and large clots, given 3 units prbc and 1 unit platelet to help with hemostasis (as still within 5 days after Plavix held), Hgb maintained between 8-9.6, BP stable. See significant event notes - 04/12 Colonoscopy done: Clotted blood was found in the rectum. A large area of ulcerated mucosa was found in the rectum with adherent clot. Oozing was present. The clot was not removed. To stop active bleeding, hemostatic spray was deployed. Two sprays were applied. There was no bleeding at the end of the procedure. Multiple small-mouthed diverticula were found in the sigmoid colon. Multiple polyps were seen in the colon throughout the procedure. Avoid fecal management devices or any enemas x 48 hours. Consider sucralfate enemas after 48 hours to aid in ulcer healing. Repeat colonoscopy non-urgently when patient is out of the hospital for polypectomy. Monitor, start clear diet, continue every 6 hrs CBC - Still with moderate amount of bleeding with dark blood and clots, Hgb however is stable, noticed slowed down with NPO, patient no appetite and prefer to be NPO for now and monitor 7-2, stable, stools brown- start clear liquids and monitor Assessment & Plan (04/16/2025 1:42 PM CDT): Patient with bloody liquid from rectum late afternoon 04/07. Following Hgb 10.4->10.1->9.9->9.4->9.6. CTA of abd-pelvis did not reveal active bleeding source but lots of stool and what appeared to be stool ball in rectum. Digital exam did not reach stool but large amount of clotted blood in rectum. Start miralax TID and try to clear stool. GI consult on board with no plan to scope. - 04/08 given tap water and mineral oil enema, but no BM - 04/09 check KUB: Stool is again noted within the rectum, huge but bloody bowel movement after hypaque enema, Hgb trended down to 6.7, receive 1 unit prbc - 04/10 Hgb 8.3, sigmoidoscopy Preparation of the colon was inadequate. Blood and clots seen in recto-sigmoid colon. Ulcerated, ooozing mucosa in the distal rectum. Treated with goldprobe. Hemostatic spray applied. Avoid AC and ASA for 2 days per GI. Avoid enema, continue PO bowel regimen - 04/11 continued rectal bleed, Hgb down to 6.6, given prbc, d/w GI and consulted CRS - limited options, gelfoam soaked with epi plug per rectum applied, no surgical candidate. Continue huge/large bleeding with dark blood and large clots, given 3 units prbc and 1 unit platelet to help with hemostasis (as still within 5 days after Plavix held), Hgb maintained between 8-9.6, BP stable. See significant event notes - 04/12 Colonoscopy done: Clotted blood was found in the rectum. A large area of ulcerated mucosa was found in the rectum with adherent clot. Oozing was present. The clot was not removed. To stop active bleeding, hemostatic spray was deployed. Two sprays were applied. There was no bleeding at the end of the procedure. Multiple small-mouthed diverticula were found in the sigmoid colon. Multiple polyps were seen in the colon throughout the procedure. Avoid fecal management devices or any enemas x 48 hours. Consider sucralfate enemas after 48 hours to aid in ulcer healing. Repeat colonoscopy non-urgently when patient is out of the hospital for polypectomy. Monitor, start clear diet, continue every 6 hrs CBC - Still with moderate amount of bleeding with dark blood and clots, Hgb however is stable, noticed slowed down with NPO, patient no appetite and prefer to be NPO for now and monitor Assessment & Plan (04/15/2025 8:16 AM CDT): Patient with bloody liquid from rectum late afternoon 04/07. Following Hgb 10.4->10.1->9.9->9.4->9.6. CTA of abd-pelvis did not reveal active bleeding source but lots of stool and what appeared to be stool ball in rectum. Digital exam did not reach stool but large amount of clotted blood in rectum. Start miralax TID and try to clear stool. GI consult on board with no plan to scope. - 04/08 given tap water and mineral oil enema, but no BM - 04/09 check KUB: Stool is again noted within the rectum, huge but bloody bowel movement after hypaque enema, Hgb trended down to 6.7, receive 1 unit prbc - 04/10 Hgb 8.3, sigmoidoscopy Preparation of the colon was inadequate. Blood and clots seen in recto-sigmoid colon. Ulcerated, ooozing mucosa in the distal rectum. Treated with goldprobe. Hemostatic spray applied. Avoid AC and ASA for 2 days per GI. Avoid enema, continue PO bowel regimen - 04/11 continued rectal bleed, Hgb down to 6.6, given prbc, d/w GI and consulted CRS - limited options, gelfoam soaked with epi plug per rectum applied, no surgical candidate. Continue huge/large bleeding with dark blood and large clots, given 3 units prbc and 1 unit platelet to help with hemostasis (as still within 5 days after Plavix held), Hgb maintained between 8-9.6, BP stable. See significant event notes - 04/12 Colonoscopy done: Clotted blood was found in the rectum. A large area of ulcerated mucosa was found in the rectum with adherent clot. Oozing was present. The clot was not removed. To stop active bleeding, hemostatic spray was deployed. Two sprays were applied. There was no bleeding at the end of the procedure. Multiple small-mouthed diverticula were found in the sigmoid colon. Multiple polyps were seen in the colon throughout the procedure. Avoid fecal management devices or any enemas x 48 hours. Consider sucralfate enemas after 48 hours to aid in ulcer healing. Repeat colonoscopy non-urgently when patient is out of the hospital for polypectomy. Monitor, start clear diet, continue every 6 hrs CBC - Still with moderate amount of bleeding with dark blood and clots, Hgb however is stable, noticed slowed down with NPO, patient no appetite and prefer to be NPO for now and monitor Assessment & Plan (04/14/2025 11:36 AM CDT): Patient with bloody liquid from rectum late afternoon 04/07. Following Hgb 10.4->10.1->9.9->9.4->9.6. CTA of abd-pelvis did not reveal active bleeding source but lots of stool and what appeared to be stool ball in rectum. Digital exam did not reach stool but large amount of clotted blood in rectum. Start miralax TID and try to clear stool. GI consult on board with no plan to scope. - 04/08 given tap water and mineral oil enema, but no BM - 04/09 check KUB: Stool is again noted within the rectum, huge but bloody bowel movement after hypaque enema, Hgb trended down to 6.7, receive 1 unit prbc - 04/10 Hgb 8.3, sigmoidoscopy Preparation of the colon was inadequate. Blood and clots seen in recto-sigmoid colon. Ulcerated, ooozing mucosa in the distal rectum. Treated with goldprobe. Hemostatic spray applied. Avoid AC and ASA for 2 days per GI. Avoid enema, continue PO bowel regimen - 04/11 continued rectal bleed, Hgb down to 6.6, given prbc, d/w GI and consulted CRS - limited options, gelfoam soaked with epi plug per rectum applied, no surgical candidate. Continue huge/large bleeding with dark blood and large clots, given 3 units prbc and 1 unit platelet to help with hemostasis (as still within 5 days after Plavix held), Hgb maintained between 8-9.6, BP stable. See significant event notes - 04/12 Colonoscopy done: Clotted blood was found in the rectum. A large area of ulcerated mucosa was found in the rectum with adherent clot. Oozing was present. The clot was not removed. To stop active bleeding, hemostatic spray was deployed. Two sprays were applied. There was no bleeding at the end of the procedure. Multiple small-mouthed diverticula were found in the sigmoid colon. Multiple polyps were seen in the colon throughout the procedure. Avoid fecal management devices or any enemas x 48 hours. Consider sucralfate enemas after 48 hours to aid in ulcer healing. Repeat colonoscopy non-urgently when patient is out of the hospital for polypectomy. 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 Following Hgb 10.4->10.1->9.9->9.4->9.6. CTA of abd-pelvis did not reveal active bleeding source but lots of stool and what appeared to be stool ball in rectum. Digital exam did not reach stool but large amount of clotted blood in rectum. Start miralax TID and try to clear stool. GI consult on board with no plan to scope. - 04/08 given tap water and mineral oil enema, but no BM - 04/09 check KUB: Stool is again noted within the rectum, huge but bloody bowel movement after hypaque enema, Hgb trended down to 6.7, receive 1 unit prbc - 04/10 Hgb 8.3, sigmoidoscopy Preparation of the colon was inadequate. Blood and clots seen in recto-sigmoid colon. Ulcerated, ooozing mucosa in the distal rectum. Treated with goldprobe. Hemostatic spray applied. Avoid AC and ASA for 2 days per GI. Avoid enema, continue PO bowel regimen - 04/11 continued rectal bleed, Hgb down to 6.6, given prbc, d/w GI and consulted CRS - limited options, gelfoam soaked with epi plug per rectum applied, not surgical candidate. Continue huge/large bleeding with dark blood and large clots, given 3 units prbc and 1 unit platelet to help with hemostasis (as still within 5 days after Plavix held), Hgb maintained between 8-9.6, BP stable. See significant event notes 04/12 Colonoscopy done: Clotted blood was found in the rectum. A large area of ulcerated mucosa was found in the rectum with adherent clot. Oozing was present. The clot was not removed. To stop active bleeding, hemostatic spray was deployed. Two sprays were applied. There was no bleeding at the end of the procedure. Multiple small-mouthed diverticula were found in the sigmoid colon. Multiple polyps were seen in the colon throughout the procedure. Avoid fecal management devices or any enemas x 48 hours. Consider sucralfate enemas after 48 hours to aid in ulcer healing. Repeat colonoscopy non-urgently when patient is out of the hospital for polypectomy. Monitor, start clear diet, continue every 6 hrs CBC 04/15 Still with moderate amount of bleeding with dark blood and clots, Hgb however is stable, noticed slowed down with NPO, patient no appetite and prefer to be NPO for now and monitor Gradually increased diet from 04/16-04/24 Consider resumption of plavix. Cardiology consult advised no plavix, start ECASA 81mg Blood count stable since starting aspirin Planning eventual polypectomy with GI as an outpatient. Had a BM 05/05 --Continue Miralax/senna prn Assessment & Plan (05/09/2025 7:59 AM CDT): Patient with bloody liquid from rectum late afternoon 04/07. Following Hgb 10.4->10.1->9.9->9.4->9.6. CTA of abd-pelvis did not reveal active bleeding source but lots of stool and what appeared to be stool ball in rectum. Digital exam did not reach stool but large amount of clotted blood in rectum. Start miralax TID and try to clear stool. GI consult on board with no plan to scope. - 04/08 given tap water and mineral oil enema, but no BM - 04/09 check KUB: Stool is again noted within the rectum, huge but bloody bowel movement after hypaque enema, Hgb trended down to 6.7, receive 1 unit prbc - 04/10 Hgb 8.3, sigmoidoscopy Preparation of the colon was inadequate. Blood and clots seen in recto-sigmoid colon. Ulcerated, ooozing mucosa in the distal rectum. Treated with goldprobe. Hemostatic spray applied. Avoid AC and ASA for 2 days per GI. Avoid enema, continue PO bowel regimen - 04/11 continued rectal bleed, Hgb down to 6.6, given prbc, d/w GI and consulted CRS - limited options, gelfoam soaked with epi plug per rectum applied, not surgical candidate. Continue huge/large bleeding with dark blood and large clots, given 3 units prbc and 1 unit platelet to help with hemostasis (as still within 5 days after Plavix held), Hgb maintained between 8-9.6, BP stable. See significant event notes 04/12 Colonoscopy done: Clotted blood was found in the rectum. A large area of ulcerated mucosa was found in the rectum with adherent clot. Oozing was present. The clot was not removed. To stop active bleeding, hemostatic spray was deployed. Two sprays were applied. There was no bleeding at the end of the procedure. Multiple small-mouthed diverticula were found in the sigmoid colon. Multiple polyps were seen in the colon throughout the procedure. Avoid fecal management devices or any enemas x 48 hours. Consider sucralfate enemas after 48 hours to aid in ulcer healing. Repeat colonoscopy non-urgently when patient is out of the hospital for polypectomy. Monitor, start clear diet, continue every 6 hrs CBC 04/15 Still with moderate amount of bleeding with dark blood and clots, Hgb however is stable, noticed slowed down with NPO, patient no appetite and prefer to be NPO for now and monitor Gradually increased diet from 04/16-04/24 Consider resumption of plavix. Cardiology consult advised no plavix, start ECASA 81mg Blood count stable since starting aspirin Planning eventual polypectomy with GI as an outpatient. Had a BM 05/05 --Continue Miralax/senna prn Assessment & Plan (05/08/2025 7:40 AM CDT): Patient with bloody liquid from rectum late afternoon 04/07. Following Hgb 10.4->10.1->9.9->9.4->9.6. CTA of abd-pelvis did not reveal active bleeding source but lots of stool and what appeared to be stool ball in rectum. Digital exam did not reach stool but large amount of clotted blood in rectum. Start miralax TID and try to clear stool. GI consult on board with no plan to scope. - 04/08 given tap water and mineral oil enema, but no BM - 04/09 check KUB: Stool is again noted within the rectum, huge but bloody bowel movement after hypaque enema, Hgb trended down to 6.7, receive 1 unit prbc - 04/10 Hgb 8.3, sigmoidoscopy Preparation of the colon was inadequate. Blood and clots seen in recto-sigmoid colon. Ulcerated, ooozing mucosa in the distal rectum. Treated with goldprobe. Hemostatic spray applied. Avoid AC and ASA for 2 days per GI. Avoid enema, continue PO bowel regimen - 04/11 continued rectal bleed, Hgb down to 6.6, given prbc, d/w GI and consulted CRS - limited options, gelfoam soaked with epi plug per rectum applied, not surgical candidate. Continue huge/large bleeding with dark blood and large clots, given 3 units prbc and 1 unit platelet to help with hemostasis (as still within 5 days after Plavix held), Hgb maintained between 8-9.6, BP stable. See significant event notes 04/12 Colonoscopy done: Clotted blood was found in the rectum. A large area of ulcerated mucosa was found in the rectum with adherent clot. Oozing was present. The clot was not removed. To stop active bleeding, hemostatic spray was deployed. Two sprays were applied. There was no bleeding at the end of the procedure. Multiple small-mouthed diverticula were found in the sigmoid colon. Multiple polyps were seen in the colon throughout the procedure. Avoid fecal management devices or any enemas x 48 hours. Consider sucralfate enemas after 48 hours to aid in ulcer healing. Repeat colonoscopy non-urgently when patient is out of the hospital for polypectomy. Monitor, start clear diet, continue every 6 hrs CBC 04/15 Still with moderate amount of bleeding with dark blood and clots, Hgb however is stable, noticed slowed down with NPO, patient no appetite and prefer to be NPO for now and monitor Gradually increased diet from 04/16-04/24 Consider resumption of plavix. Cardiology consult advised no plavix, start ECASA 81mg Blood count stable since starting aspirin Planning eventual polypectomy with GI as an outpatient. Had a BM 05/05 --Continue Miralax/senna prn Assessment & Plan (05/07/2025 7:31 AM CDT): Patient with bloody liquid from rectum late afternoon 04/07. Following Hgb 10.4->10.1->9.9->9.4->9.6. CTA of abd-pelvis did not reveal active bleeding source but lots of stool and what appeared to be stool ball in rectum. Digital exam did not reach stool but large amount of clotted blood in rectum. Start miralax TID and try to clear stool. GI consult on board with no plan to scope. - 04/08 given tap water and mineral oil enema, but no BM - 04/09 check KUB: Stool is again noted within the rectum, huge but bloody bowel movement after hypaque enema, Hgb trended down to 6.7, receive 1 unit prbc - 04/10 Hgb 8.3, sigmoidoscopy Preparation of the colon was inadequate. Blood and clots seen in recto-sigmoid colon. Ulcerated, ooozing mucosa in the distal rectum. Treated with goldprobe. Hemostatic spray applied. Avoid AC and ASA for 2 days per GI. Avoid enema, continue PO bowel regimen - 04/11 continued rectal bleed, Hgb down to 6.6, given prbc, d/w GI and consulted CRS - limited options, gelfoam soaked with epi plug per rectum applied, not surgical candidate. Continue huge/large bleeding with dark blood and large clots, given 3 units prbc and 1 unit platelet to help with hemostasis (as still within 5 days after Plavix held), Hgb maintained between 8-9.6, BP stable. See significant event notes 04/12 Colonoscopy done: Clotted blood was found in the rectum. A large area of ulcerated mucosa was found in the rectum with adherent clot. Oozing was present. The clot was not removed. To stop active bleeding, hemostatic spray was deployed. Two sprays were applied. There was no bleeding at the end of the procedure. Multiple small-mouthed diverticula were found in the sigmoid colon. Multiple polyps were seen in the colon throughout the procedure. Avoid fecal management devices or any enemas x 48 hours. Consider sucralfate enemas after 48 hours to aid in ulcer healing. Repeat colonoscopy non-urgently when patient is out of the hospital for polypectomy. Monitor, start clear diet, continue every 6 hrs CBC 04/15 Still with moderate amount of bleeding with dark blood and clots, Hgb however is stable, noticed slowed down with NPO, patient no appetite and prefer to be NPO for now and monitor Gradually increased diet from 04/16-04/24 Consider resumption of plavix. Cardiology consult advised no plavix, start ECASA 81mg Blood count stable since starting aspirin Planning eventual polypectomy with GI as an outpatient. Had a BM 05/05 --Continue Miralax/senna prn Assessment & Plan (05/06/2025 4:49 PM CDT): Patient with bloody liquid from rectum late afternoon 04/07. Following Hgb 10.4->10.1->9.9->9.4->9.6. CTA of abd-pelvis did not reveal active bleeding source but lots of stool and what appeared to be stool ball in rectum. Digital exam did not reach stool but large amount of clotted blood in rectum. Start miralax TID and try to clear stool. GI consult on board with no plan to scope. - 04/08 given tap water and mineral oil enema, but no BM - 04/09 check KUB: Stool is again noted within the rectum, huge but bloody bowel movement after hypaque enema, Hgb trended down to 6.7, receive 1 unit prbc - 04/10 Hgb 8.3, sigmoidoscopy Preparation of the colon was inadequate. Blood and clots seen in recto-sigmoid colon. Ulcerated, ooozing mucosa in the distal rectum. Treated with goldprobe. Hemostatic spray applied. Avoid AC and ASA for 2 days per GI. Avoid enema, continue PO bowel regimen - 04/11 continued rectal bleed, Hgb down to 6.6, given prbc, d/w GI and consulted CRS - limited options, gelfoam soaked with epi plug per rectum applied, not surgical candidate. Continue huge/large bleeding with dark blood and large clots, given 3 units prbc and 1 unit platelet to help with hemostasis (as still within 5 days after Plavix held), Hgb maintained between 8-9.6, BP stable. See significant event notes 04/12 Colonoscopy done: Clotted blood was found in the rectum. A large area of ulcerated mucosa was found in the rectum with adherent clot. Oozing was present. The clot was not removed. To stop active bleeding, hemostatic spray was deployed. Two sprays were applied. There was no bleeding at the end of the procedure. Multiple small-mouthed diverticula were found in the sigmoid colon. Multiple polyps were seen in the colon throughout the procedure. Avoid fecal management devices or any enemas x 48 hours. Consider sucralfate enemas after 48 hours to aid in ulcer healing. Repeat colonoscopy non-urgently when patient is out of the hospital for polypectomy. Monitor, start clear diet, continue every 6 hrs CBC 04/15 Still with moderate amount of bleeding with dark blood and clots, Hgb however is stable, noticed slowed down with NPO, patient no appetite and prefer to be NPO for now and monitor Gradually increased diet from 04/16-04/24 Consider resumption of plavix. Cardiology consult advised no plavix, start ECASA 81mg Blood count stable since starting aspirin Planning eventual polypectomy with GI as an outpatient. Had a BM 05/05 --Continue Miralax/senna prn Assessment & Plan (05/05/2025 3:50 PM CDT): Patient with bloody liquid from rectum late afternoon 04/07. Following Hgb 10.4->10.1->9.9->9.4->9.6. CTA of abd-pelvis did not reveal active bleeding source but lots of stool and what appeared to be stool ball in rectum. Digital exam did not reach stool but large amount of clotted blood in rectum. Start miralax TID and try to clear stool. GI consult on board with no plan to scope. - 04/08 given tap water and mineral oil enema, but no BM - 04/09 check KUB: Stool is again noted within the rectum, huge but bloody bowel movement after hypaque enema, Hgb trended down to 6.7, receive 1 unit prbc - 04/10 Hgb 8.3, sigmoidoscopy Preparation of the colon was inadequate. Blood and clots seen in recto-sigmoid colon. Ulcerated, ooozing mucosa in the distal rectum. Treated with goldprobe. Hemostatic spray applied. Avoid AC and ASA for 2 days per GI. Avoid enema, continue PO bowel regimen - 04/11 continued rectal bleed, Hgb down to 6.6, given prbc, d/w GI and consulted CRS - limited options, gelfoam soaked with epi plug per rectum applied, not surgical candidate. Continue huge/large bleeding with dark blood and large clots, given 3 units prbc and 1 unit platelet to help with hemostasis (as still within 5 days after Plavix held), Hgb maintained between 8-9.6, BP stable. See significant event notes 04/12 Colonoscopy done: Clotted blood was found in the rectum. A large area of ulcerated mucosa was found in the rectum with adherent clot. Oozing was present. The clot was not removed. To stop active bleeding, hemostatic spray was deployed. Two sprays were applied. There was no bleeding at the end of the procedure. Multiple small-mouthed diverticula were found in the sigmoid colon. Multiple polyps were seen in the colon throughout the procedure. Avoid fecal management devices or any enemas x 48 hours. Consider sucralfate enemas after 48 hours to aid in ulcer healing. Repeat colonoscopy non-urgently when patient is out of the hospital for polypectomy. Monitor, start clear diet, continue every 6 hrs CBC 04/15 Still with moderate amount of bleeding with dark blood and clots, Hgb however is stable, noticed slowed down with NPO, patient no appetite and prefer to be NPO for now and monitor Gradually increased diet from 04/16-04/24 Consider resumption of plavix. Cardiology consult advised no plavix, start ECASA 81mg Blood count stable since starting aspirin, 8.8-10.2 in the last 4 days, 9.1 today Planning eventual polypectomy with GI as an outpatient. Had a BM 05/05 --Continue Miralax prn Assessment & Plan (05/04/2025 3:57 PM CDT): Patient with bloody liquid from rectum late afternoon 04/07. Following Hgb 10.4->10.1->9.9->9.4->9.6. CTA of abd-pelvis did not reveal active bleeding source but lots of stool and what appeared to be stool ball in rectum. Digital exam did not reach stool but large amount of clotted blood in rectum. Start miralax TID and try to clear stool. GI consult on board with no plan to scope. - 04/08 given tap water and mineral oil enema, but no BM - 04/09 check KUB: Stool is again noted within the rectum, huge but bloody bowel movement after hypaque enema, Hgb trended down to 6.7, receive 1 unit prbc - 04/10 Hgb 8.3, sigmoidoscopy Preparation of the colon was inadequate. Blood and clots seen in recto-sigmoid colon. Ulcerated, ooozing mucosa in the distal rectum. Treated with goldprobe. Hemostatic spray applied. Avoid AC and ASA for 2 days per GI. Avoid enema, continue PO bowel regimen - 04/11 continued rectal bleed, Hgb down to 6.6, given prbc, d/w GI and consulted CRS - limited options, gelfoam soaked with epi plug per rectum applied, not surgical candidate. Continue huge/large bleeding with dark blood and large clots, given 3 units prbc and 1 unit platelet to help with hemostasis (as still within 5 days after Plavix held), Hgb maintained between 8-9.6, BP stable. See significant event notes 04/12 Colonoscopy done: Clotted blood was found in the rectum. A large area of ulcerated mucosa was found in the rectum with adherent clot. Oozing was present. The clot was not removed. To stop active bleeding, hemostatic spray was deployed. Two sprays were applied. There was no bleeding at the end of the procedure. Multiple small-mouthed diverticula were found in the sigmoid colon. Multiple polyps were seen in the colon throughout the procedure. Avoid fecal management devices or any enemas x 48 hours. Consider sucralfate enemas after 48 hours to aid in ulcer healing. Repeat colonoscopy non-urgently when patient is out of the hospital for polypectomy. Monitor, start clear diet, continue every 6 hrs CBC 04/15 Still with moderate amount of bleeding with dark blood and clots, Hgb however is stable, noticed slowed down with NPO, patient no appetite and prefer to be NPO for now and monitor Gradually increased diet from 04/16-04/24 Consider resumption of plavix. Cardiology consult advised no plavix, start ECASA 81mg Blood count stable since starting aspirin, 8.8-10.2 in the last 4 days, 9.1 today Planning eventual polypectomy with GI as an outpatient. Assessment & Plan (05/03/2025 1:22 PM CDT): Patient with bloody liquid from rectum late afternoon 04/07. Following Hgb 10.4->10.1->9.9->9.4->9.6. CTA of abd-pelvis did not reveal active bleeding source but lots of stool and what appeared to be stool ball in rectum. Digital exam did not reach stool but large amount of clotted blood in rectum. Start miralax TID and try to clear stool. GI consult on board with no plan to scope. - 04/08 given tap water and mineral oil enema, but no BM - 04/09 check KUB: Stool is again noted within the rectum, huge but bloody bowel movement after hypaque enema, Hgb trended down to 6.7, receive 1 unit prbc - 04/10 Hgb 8.3, sigmoidoscopy Preparation of the colon was inadequate. Blood and clots seen in recto-sigmoid colon. Ulcerated, ooozing mucosa in the distal rectum. Treated with goldprobe. Hemostatic spray applied. Avoid AC and ASA for 2 days per GI. Avoid enema, continue PO bowel regimen - 04/11 continued rectal bleed, Hgb down to 6.6, given prbc, d/w GI and consulted CRS - limited options, gelfoam soaked with epi plug per rectum applied, not surgical candidate. Continue huge/large bleeding with dark blood and large clots, given 3 units prbc and 1 unit platelet to help with hemostasis (as still within 5 days after Plavix held), Hgb maintained between 8-9.6, BP stable. See significant event notes 04/12 Colonoscopy done: Clotted blood was found in the rectum. A large area of ulcerated mucosa was found in the rectum with adherent clot. Oozing was present. The clot was not removed. To stop active bleeding, hemostatic spray was deployed. Two sprays were applied. There was no bleeding at the end of the procedure. Multiple small-mouthed diverticula were found in the sigmoid colon. Multiple polyps were seen in the colon throughout the procedure. Avoid fecal management devices or any enemas x 48 hours. Consider sucralfate enemas after 48 hours to aid in ulcer healing. Repeat colonoscopy non-urgently when patient is out of the hospital for polypectomy. Monitor, start clear diet, continue every 6 hrs CBC 04/15 Still with moderate amount of bleeding with dark blood and clots, Hgb however is stable, noticed slowed down with NPO, patient no appetite and prefer to be NPO for now and monitor Gradually increased diet from 04/16-04/24 Consider resumption of plavix. Cardiology consult advised no plavix, start ECASA 81mg Blood count stable since starting aspirin, 9.1/28.6 Planning eventual polypectomy with GI as an outpatient. Assessment & Plan (05/02/2025 1:13 PM CDT): Patient with bloody liquid from rectum late afternoon 04/07. Following Hgb 10.4->10.1->9.9->9.4->9.6. CTA of abd-pelvis did not reveal active bleeding source but lots of stool and what appeared to be stool ball in rectum. Digital exam did not reach stool but large amount of clotted blood in rectum. Start miralax TID and try to clear stool. GI consult on board with no plan to scope. - 04/08 given tap water and mineral oil enema, but no BM - 04/09 check KUB: Stool is again noted within the rectum, huge but bloody bowel movement after hypaque enema, Hgb trended down to 6.7, receive 1 unit prbc - 04/10 Hgb 8.3, sigmoidoscopy Preparation of the colon was inadequate. Blood and clots seen in recto-sigmoid colon. Ulcerated, ooozing mucosa in the distal rectum. Treated with goldprobe. Hemostatic spray applied. Avoid AC and ASA for 2 days per GI. Avoid enema, continue PO bowel regimen - 04/11 continued rectal bleed, Hgb down to 6.6, given prbc, d/w GI and consulted CRS - limited options, gelfoam soaked with epi plug per rectum applied, not surgical candidate. Continue huge/large bleeding with dark blood and large clots, given 3 units prbc and 1 unit platelet to help with hemostasis (as still within 5 days after Plavix held), Hgb maintained between 8-9.6, BP stable. See significant event notes 04/12 Colonoscopy done: Clotted blood was found in the rectum. A large area of ulcerated mucosa was found in the rectum with adherent clot. Oozing was present. The clot was not removed. To stop active bleeding, hemostatic spray was deployed. Two sprays were applied. There was no bleeding at the end of the procedure. Multiple small-mouthed diverticula were found in the sigmoid colon. Multiple polyps were seen in the colon throughout the procedure. Avoid fecal management devices or any enemas x 48 hours. Consider sucralfate enemas after 48 hours to aid in ulcer healing. Repeat colonoscopy non-urgently when patient is out of the hospital for polypectomy. Monitor, start clear diet, continue every 6 hrs CBC 04/15 Still with moderate amount of bleeding with dark blood and clots, Hgb however is stable, noticed slowed down with NPO, patient no appetite and prefer to be NPO for now and monitor Gradually increased diet from 04/16-04/23 Hgb stable 04/24: Hgb=9.7. Consider resumption of plavix. Cardiology consult advised no plavix, start ECASA 81mg Blood count stable since starting aspirin, 9.11/13.6 Planning eventual polypectomy with GI as an outpatient. Assessment & Plan (04/30/2025 5:18 PM CDT): Patient with bloody liquid from rectum late afternoon 04/07. Following Hgb 10.4->10.1->9.9->9.4->9.6. CTA of abd-pelvis did not reveal active bleeding source but lots of stool and what appeared to be stool ball in rectum. Digital exam did not reach stool but large amount of clotted blood in rectum. Start miralax TID and try to clear stool. GI consult on board with no plan to scope. - 04/08 given tap water and mineral oil enema, but no BM - 04/09 check KUB: Stool is again noted within the rectum, huge but bloody bowel movement after hypaque enema, Hgb trended down to 6.7, receive 1 unit prbc - 04/10 Hgb 8.3, sigmoidoscopy Preparation of the colon was inadequate. Blood and clots seen in recto-sigmoid colon. Ulcerated, ooozing mucosa in the distal rectum. Treated with goldprobe. Hemostatic spray applied. Avoid AC and ASA for 2 days per GI. Avoid enema, continue PO bowel regimen - 04/11 continued rectal bleed, Hgb down to 6.6, given prbc, d/w GI and consulted CRS - limited options, gelfoam soaked with epi plug per rectum applied, not surgical candidate. Continue huge/large bleeding with dark blood and large clots, given 3 units prbc and 1 unit platelet to help with hemostasis (as still within 5 days after Plavix held), Hgb maintained between 8-9.6, BP stable. See significant event notes 04/12 Colonoscopy done: Clotted blood was found in the rectum. A large area of ulcerated mucosa was found in the rectum with adherent clot. Oozing was present. The clot was not removed. To stop active bleeding, hemostatic spray was deployed. Two sprays were applied. There was no bleeding at the end of the procedure. Multiple small-mouthed diverticula were found in the sigmoid colon. Multiple polyps were seen in the colon throughout the procedure. Avoid fecal management devices or any enemas x 48 hours. Consider sucralfate enemas after 48 hours to aid in ulcer healing. Repeat colonoscopy non-urgently when patient is out of the hospital for polypectomy. Monitor, start clear diet, continue every 6 hrs CBC 04/15 Still with moderate amount of bleeding with dark blood and clots, Hgb however is stable, noticed slowed down with NPO, patient no appetite and prefer to be NPO for now and monitor Gradually increased diet from 04/16-04/23 Hgb stable 04/24: Hgb=9.7. Consider resumption of plavix. Cardiology consult advised no plavix, start ECASA 81mg Blood count stable since starting aspirin Planning eventual polypectomy with GI as an outpatient. Assessment & Plan (04/29/2025 10:33 AM CDT): Patient with bloody liquid from rectum late afternoon 04/07. Following Hgb 10.4->10.1->9.9->9.4->9.6. CTA of abd-pelvis did not reveal active bleeding source but lots of stool and what appeared to be stool ball in rectum. Digital exam did not reach stool but large amount of clotted blood in rectum. Start miralax TID and try to clear stool. GI consult on board with no plan to scope. - 04/08 given tap water and mineral oil enema, but no BM - 04/09 check KUB: Stool is again noted within the rectum, huge but bloody bowel movement after hypaque enema, Hgb trended down to 6.7, receive 1 unit prbc - 04/10 Hgb 8.3, sigmoidoscopy Preparation of the colon was inadequate. Blood and clots seen in recto-sigmoid colon. Ulcerated, ooozing mucosa in the distal rectum. Treated with goldprobe. Hemostatic spray applied. Avoid AC and ASA for 2 days per GI. Avoid enema, continue PO bowel regimen - 04/11 continued rectal bleed, Hgb down to 6.6, given prbc, d/w GI and consulted CRS - limited options, gelfoam soaked with epi plug per rectum applied, not surgical candidate. Continue huge/large bleeding with dark blood and large clots, given 3 units prbc and 1 unit platelet to help with hemostasis (as still within 5 days after Plavix held), Hgb maintained between 8-9.6, BP stable. See significant event notes - 04/12 Colonoscopy done: Clotted blood was found in the rectum. A large area of ulcerated mucosa was found in the rectum with adherent clot. Oozing was present. The clot was not removed. To stop active bleeding, hemostatic spray was deployed. Two sprays were applied. There was no bleeding at the end of the procedure. Multiple small-mouthed diverticula were found in the sigmoid colon. Multiple polyps were seen in the colon throughout the procedure. Avoid fecal management devices or any enemas x 48 hours. Consider sucralfate enemas after 48 hours to aid in ulcer healing. Repeat colonoscopy non-urgently when patient is out of the hospital for polypectomy. Monitor, start clear diet, continue every 6 hrs CBC -04/15 Still with moderate amount of bleeding with dark blood and clots, Hgb however is stable, noticed slowed down with NPO, patient no appetite and prefer to be NPO for now and monitor 7-1 sips of clears 7-2 stable, stools brown- start clear liquids and monitor 7-3 tolerating clears, brown stools, wants to wait before advancing diet. Hgb stable 7-4 continue clears- stools brown 7-5 advance diet to full liquid, monitor-no bleed, does not want to advance 04/23: Hgb=8.8 advance to regular diet and monitor 04/24: Hgb=9.7. Consider resumption of plavix. Cardiology consult advised no plavix, start ECASA 81mg 04/25. 04/25 Hgb=8.8 04/26 Hgb=8.9 04/27 Hgb=10.2 04/29 Hgb=8.8 no sign of bleeding Assessment & Plan (04/28/2025 11:48 AM CDT): Patient with bloody liquid from rectum late afternoon 04/07. Following Hgb 10.4->10.1->9.9->9.4->9.6. CTA of abd-pelvis did not reveal active bleeding source but lots of stool and what appeared to be stool ball in rectum. Digital exam did not reach stool but large amount of clotted blood in rectum. Start miralax TID and try to clear stool. GI consult on board with no plan to scope. - 04/08 given tap water and mineral oil enema, but no BM - 04/09 check KUB: Stool is again noted within the rectum, huge but bloody bowel movement after hypaque enema, Hgb trended down to 6.7, receive 1 unit prbc - 04/10 Hgb 8.3, sigmoidoscopy Preparation of the colon was inadequate. Blood and clots seen in recto-sigmoid colon. Ulcerated, ooozing mucosa in the distal rectum. Treated with goldprobe. Hemostatic spray applied. Avoid AC and ASA for 2 days per GI. Avoid enema, continue PO bowel regimen - 04/11 continued rectal bleed, Hgb down to 6.6, given prbc, d/w GI and consulted CRS - limited options, gelfoam soaked with epi plug per rectum applied, not surgical candidate. Continue huge/large bleeding with dark blood and large clots, given 3 units prbc and 1 unit platelet to help with hemostasis (as still within 5 days after Plavix held), Hgb maintained between 8-9.6, BP stable. See significant event notes - 04/12 Colonoscopy done: Clotted blood was found in the rectum. A large area of ulcerated mucosa was found in the rectum with adherent clot. Oozing was present. The clot was not removed. To stop active bleeding, hemostatic spray was deployed. Two sprays were applied. There was no bleeding at the end of the procedure. Multiple small-mouthed diverticula were found in the sigmoid colon. Multiple polyps were seen in the colon throughout the procedure. Avoid fecal management devices or any enemas x 48 hours. Consider sucralfate enemas after 48 hours to aid in ulcer healing. Repeat colonoscopy non-urgently when patient is out of the hospital for polypectomy. Monitor, start clear diet, continue every 6 hrs CBC -04/15 Still with moderate amount of bleeding with dark blood and clots, Hgb however is stable, noticed slowed down with NPO, patient no appetite and prefer to be NPO for now and monitor 7-1 sips of clears 7-2 stable, stools brown- start clear liquids and monitor 7-3 tolerating clears, brown stools, wants to wait before advancing diet. Hgb stable 7-4 continue clears- stools brown 7- advance diet to full liquid, monitor-no bleed, does not want to advance 04/23: Hgb=8.8 advance to regular diet and monitor 04/24: Hgb=9.7. Consider resumption of plavix. Cardiology consult advised no plavix, start ECASA 81mg 04/25. 04/25 Hgb=8.8 04/26 Hgb=8.9 no sign of bleeding 04/27 Hgb=10.2 Assessment & Plan (04/27/2025 9:58 AM CDT): Patient with bloody liquid from rectum late afternoon 04/07. Following Hgb 10.4->10.1->9.9->9.4->9.6. CTA of abd-pelvis did not reveal active bleeding source but lots of stool and what appeared to be stool ball in rectum. Digital exam did not reach stool but large amount of clotted blood in rectum. Start miralax TID and try to clear stool. GI consult on board with no plan to scope. - 04/08 given tap water and mineral oil enema, but no BM - 04/09 check KUB: Stool is again noted within the rectum, huge but bloody bowel movement after hypaque enema, Hgb trended down to 6.7, receive 1 unit prbc - 04/10 Hgb 8.3, sigmoidoscopy Preparation of the colon was inadequate. Blood and clots seen in recto-sigmoid colon. Ulcerated, ooozing mucosa in the distal rectum. Treated with goldprobe. Hemostatic spray applied. Avoid AC and ASA for 2 days per GI. Avoid enema, continue PO bowel regimen - 04/11 continued rectal bleed, Hgb down to 6.6, given prbc, d/w GI and consulted CRS - limited options, gelfoam soaked with epi plug per rectum applied, not surgical candidate. Continue huge/large bleeding with dark blood and large clots, given 3 units prbc and 1 unit platelet to help with hemostasis (as still within 5 days after Plavix held), Hgb maintained between 8-9.6, BP stable. See significant event notes - 04/12 Colonoscopy done: Clotted blood was found in the rectum. A large area of ulcerated mucosa was found in the rectum with adherent clot. Oozing was present. The clot was not removed. To stop active bleeding, hemostatic spray was deployed. Two sprays were applied. There was no bleeding at the end of the procedure. Multiple small-mouthed diverticula were found in the sigmoid colon. Multiple polyps were seen in the colon throughout the procedure. Avoid fecal management devices or any enemas x 48 hours. Consider sucralfate enemas after 48 hours to aid in ulcer healing. Repeat colonoscopy non-urgently when patient is out of the hospital for polypectomy. Monitor, start clear diet, continue every 6 hrs CBC -04/15 Still with moderate amount of bleeding with dark blood and clots, Hgb however is stable, noticed slowed down with NPO, patient no appetite and prefer to be NPO for now and monitor 7-1 sips of clears 7-2 stable, stools brown- start clear liquids and monitor 7-3 tolerating clears, brown stools, wants to wait before advancing diet. Hgb stable 7-4 continue clears- stools brown 7-5 advance diet to full liquid, monitor-no bleed, does not want to advance 04/23: Hgb=8.8 advance to regular diet and monitor 04/24: Hgb=9.7. Consider resumption of plavix. Cardiology consult advised no plavix, start ECASA 81mg 04/25. 04/25 Hgb=8.8 04/26 Hgb=8.9 no sign of bleeding 04/27 Hgb=10.2 Assessment & Plan (04/26/2025 10:07 AM CDT): Patient with bloody liquid from rectum late afternoon 04/07. Following Hgb 10.4->10.1->9.9->9.4->9.6. CTA of abd-pelvis did not reveal active bleeding source but lots of stool and what appeared to be stool ball in rectum. Digital exam did not reach stool but large amount of clotted blood in rectum. Start miralax TID and try to clear stool. GI consult on board with no plan to scope. - 04/08 given tap water and mineral oil enema, but no BM - 04/09 check KUB: Stool is again noted within the rectum, huge but bloody bowel movement after hypaque enema, Hgb trended down to 6.7, receive 1 unit prbc - 04/10 Hgb 8.3, sigmoidoscopy Preparation of the colon was inadequate. Blood and clots seen in recto-sigmoid colon. Ulcerated, ooozing mucosa in the distal rectum. Treated with goldprobe. Hemostatic spray applied. Avoid AC and ASA for 2 days per GI. Avoid enema, continue PO bowel regimen - 04/11 continued rectal bleed, Hgb down to 6.6, given prbc, d/w GI and consulted CRS - limited options, gelfoam soaked with epi plug per rectum applied, not surgical candidate. Continue huge/large bleeding with dark blood and large clots, given 3 units prbc and 1 unit platelet to help with hemostasis (as still within 5 days after Plavix held), Hgb maintained between 8-9.6, BP stable. See significant event notes - 04/12 Colonoscopy done: Clotted blood was found in the rectum. A large area of ulcerated mucosa was found in the rectum with adherent clot. Oozing was present. The clot was not removed. To stop active bleeding, hemostatic spray was deployed. Two sprays were applied. There was no bleeding at the end of the procedure. Multiple small-mouthed diverticula were found in the sigmoid colon. Multiple polyps were seen in the colon throughout the procedure. Avoid fecal management devices or any enemas x 48 hours. Consider sucralfate enemas after 48 hours to aid in ulcer healing. Repeat colonoscopy non-urgently when patient is out of the hospital for polypectomy. Monitor, start clear diet, continue every 6 hrs CBC -04/15 Still with moderate amount of bleeding with dark blood and clots, Hgb however is stable, noticed slowed down with NPO, patient no appetite and prefer to be NPO for now and monitor 7-1 sips of clears 7-2 stable, stools brown- start clear liquids and monitor 7-3 tolerating clears, brown stools, wants to wait before advancing diet. Hgb stable 7-4 continue clears- stools brown 7- advance diet to full liquid, monitor-no bleed, does not want to advance 04/23: Hgb=8.8 advance to regular diet and monitor 04/24: Hgb=9.7. Consider resumption of plavix. Cardiology consult advised no plavix, start ECASA 81mg 04/25. 04/25 Hgb=8.8 04/26 Hgb=8.9 no sign of bleeding Assessment & Plan (04/25/2025 10:43 AM CDT): Patient with bloody liquid from rectum late afternoon 04/07. Following Hgb 10.4->10.1->9.9->9.4->9.6. CTA of abd-pelvis did not reveal active bleeding source but lots of stool and what appeared to be stool ball in rectum. Digital exam did not reach stool but large amount of clotted blood in rectum. Start miralax TID and try to clear stool. GI consult on board with no plan to scope. - 04/08 given tap water and mineral oil enema, but no BM - 04/09 check KUB: Stool is again noted within the rectum, huge but bloody bowel movement after hypaque enema, Hgb trended down to 6.7, receive 1 unit prbc - 04/10 Hgb 8.3, sigmoidoscopy Preparation of the colon was inadequate. Blood and clots seen in recto-sigmoid colon. Ulcerated, ooozing mucosa in the distal rectum. Treated with goldprobe. Hemostatic spray applied. Avoid AC and ASA for 2 days per GI. Avoid enema, continue PO bowel regimen - 04/11 continued rectal bleed, Hgb down to 6.6, given prbc, d/w GI and consulted CRS - limited options, gelfoam soaked with epi plug per rectum applied, not surgical candidate. Continue huge/large bleeding with dark blood and large clots, given 3 units prbc and 1 unit platelet to help with hemostasis (as still within 5 days after Plavix held), Hgb maintained between 8-9.6, BP stable. See significant event notes - 04/12 Colonoscopy done: Clotted blood was found in the rectum. A large area of ulcerated mucosa was found in the rectum with adherent clot. Oozing was present. The clot was not removed. To stop active bleeding, hemostatic spray was deployed. Two sprays were applied. There was no bleeding at the end of the procedure. Multiple small-mouthed diverticula were found in the sigmoid colon. Multiple polyps were seen in the colon throughout the procedure. Avoid fecal management devices or any enemas x 48 hours. Consider sucralfate enemas after 48 hours to aid in ulcer healing. Repeat colonoscopy non-urgently when patient is out of the hospital for polypectomy. Monitor, start clear diet, continue every 6 hrs CBC -04/15 Still with moderate amount of bleeding with dark blood and clots, Hgb however is stable, noticed slowed down with NPO, patient no appetite and prefer to be NPO for now and monitor 7-1 sips of clears 7-2 stable, stools brown- start clear liquids and monitor 7-3 tolerating clears, brown stools, wants to wait before advancing diet. Hgb stable 7-4 continue clears- stools brown 7-5 advance diet to full liquid, monitor-no bleed, does not want to advance 04/23: advance to regular diet and monitor 04/24: Hgb=9.7. Consider resumption of plavix. Cardiology consult advised no plavix, start ECASA 81mg 04/25. Assessment & Plan (04/24/2025 11:01 AM CDT): Patient with bloody liquid from rectum late afternoon 04/07. Following Hgb 10.4->10.1->9.9->9.4->9.6. CTA of abd-pelvis did not reveal active bleeding source but lots of stool and what appeared to be stool ball in rectum. Digital exam did not reach stool but large amount of clotted blood in rectum. Start miralax TID and try to clear stool. GI consult on board with no plan to scope. - 04/08 given tap water and mineral oil enema, but no BM - 04/09 check KUB: Stool is again noted within the rectum, huge but bloody bowel movement after hypaque enema, Hgb trended down to 6.7, receive 1 unit prbc - 04/10 Hgb 8.3, sigmoidoscopy Preparation of the colon was inadequate. Blood and clots seen in recto-sigmoid colon. Ulcerated, ooozing mucosa in the distal rectum. Treated with goldprobe. Hemostatic spray applied. Avoid AC and ASA for 2 days per GI. Avoid enema, continue PO bowel regimen - 04/11 continued rectal bleed, Hgb down to 6.6, given prbc, d/w GI and consulted CRS - limited options, gelfoam soaked with epi plug per rectum applied, not surgical candidate. Continue huge/large bleeding with dark blood and large clots, given 3 units prbc and 1 unit platelet to help with hemostasis (as still within 5 days after Plavix held), Hgb maintained between 8-9.6, BP stable. See significant event notes - 04/12 Colonoscopy done: Clotted blood was found in the rectum. A large area of ulcerated mucosa was found in the rectum with adherent clot. Oozing was present. The clot was not removed. To stop active bleeding, hemostatic spray was deployed. Two sprays were applied. There was no bleeding at the end of the procedure. Multiple small-mouthed diverticula were found in the sigmoid colon. Multiple polyps were seen in the colon throughout the procedure. Avoid fecal management devices or any enemas x 48 hours. Consider sucralfate enemas after 48 hours to aid in ulcer healing. Repeat colonoscopy non-urgently when patient is out of the hospital for polypectomy. Monitor, start clear diet, continue every 6 hrs CBC -04/15 Still with moderate amount of bleeding with dark blood and clots, Hgb however is stable, noticed slowed down with NPO, patient no appetite and prefer to be NPO for now and monitor 7-1 sips of clears 7-2 stable, stools brown- start clear liquids and monitor 7-3 tolerating clears, brown stools, wants to wait before advancing diet. Hgb stable 7-4 continue clears- stools brown 7-5 advance diet to full liquid, monitor-no bleed, does not want to advance 7/8: advance to regular diet and monitor 9: Hgb=9.7. Consider resumption of plavix. Assessment & Plan (04/23/2025 2:21 PM CDT): Patient with bloody liquid from rectum late afternoon 04/07. Following Hgb 10.4->10.1->9.9->9.4->9.6. CTA of abd-pelvis did not reveal active bleeding source but lots of stool and what appeared to be stool ball in rectum. Digital exam did not reach stool but large amount of clotted blood in rectum. Start miralax TID and try to clear stool. GI consult on board with no plan to scope. - 04/08 given tap water and mineral oil enema, but no BM - 04/09 check KUB: Stool is again noted within the rectum, huge but bloody bowel movement after hypaque enema, Hgb trended down to 6.7, receive 1 unit prbc - 04/10 Hgb 8.3, sigmoidoscopy Preparation of the colon was inadequate. Blood and clots seen in recto-sigmoid colon. Ulcerated, ooozing mucosa in the distal rectum. Treated with goldprobe. Hemostatic spray applied. Avoid AC and ASA for 2 days per GI. Avoid enema, continue PO bowel regimen - 04/11 continued rectal bleed, Hgb down to 6.6, given prbc, d/w GI and consulted CRS - limited options, gelfoam soaked with epi plug per rectum applied, not surgical candidate. Continue huge/large bleeding with dark blood and large clots, given 3 units prbc and 1 unit platelet to help with hemostasis (as still within 5 days after Plavix held), Hgb maintained between 8-9.6, BP stable. See significant event notes - 04/12 Colonoscopy done: Clotted blood was found in the rectum. A large area of ulcerated mucosa was found in the rectum with adherent clot. Oozing was present. The clot was not removed. To stop active bleeding, hemostatic spray was deployed. Two sprays were applied. There was no bleeding at the end of the procedure. Multiple small-mouthed diverticula were found in the sigmoid colon. Multiple polyps were seen in the colon throughout the procedure. Avoid fecal management devices or any enemas x 48 hours. Consider sucralfate enemas after 48 hours to aid in ulcer healing. Repeat colonoscopy non-urgently when patient is out of the hospital for polypectomy. Monitor, start clear diet, continue every 6 hrs CBC -04/15 Still with moderate amount of bleeding with dark blood and clots, Hgb however is stable, noticed slowed down with NPO, patient no appetite and prefer to be NPO for now and monitor 7-1 sips of clears 7-2 stable, stools brown- start clear liquids and monitor 7-3 tolerating clears, brown stools, wants to wait before advancing diet. Hgb stable 7-4 continue clears- stools brown 7-5 advance diet to full liquid, monitor-no bleed, does not want to advance /8: advance to regular diet and monitor Assessment & Plan (04/23/2025 6:07 AM CDT): Patient with bloody liquid from rectum late afternoon 04/07. Following Hgb 10.4->10.1->9.9->9.4->9.6. CTA of abd-pelvis did not reveal active bleeding source but lots of stool and what appeared to be stool ball in rectum. Digital exam did not reach stool but large amount of clotted blood in rectum. Start miralax TID and try to clear stool. GI consult on board with no plan to scope. - 04/08 given tap water and mineral oil enema, but no BM - 04/09 check KUB: Stool is again noted within the rectum, huge but bloody bowel movement after hypaque enema, Hgb trended down to 6.7, receive 1 unit prbc - 04/10 Hgb 8.3, sigmoidoscopy Preparation of the colon was inadequate. Blood and clots seen in recto-sigmoid colon. Ulcerated, ooozing mucosa in the distal rectum. Treated with goldprobe. Hemostatic spray applied. Avoid AC and ASA for 2 days per GI. Avoid enema, continue PO bowel regimen - 04/11 continued rectal bleed, Hgb down to 6.6, given prbc, d/w GI and consulted CRS - limited options, gelfoam soaked with epi plug per rectum applied, no surgical candidate. Continue huge/large bleeding with dark blood and large clots, given 3 units prbc and 1 unit platelet to help with hemostasis (as still within 5 days after Plavix held), Hgb maintained between 8-9.6, BP stable. See significant event notes - 04/12 Colonoscopy done: Clotted blood was found in the rectum. A large area of ulcerated mucosa was found in the rectum with adherent clot. Oozing was present. The clot was not removed. To stop active bleeding, hemostatic spray was deployed. Two sprays were applied. There was no bleeding at the end of the procedure. Multiple small-mouthed diverticula were found in the sigmoid colon. Multiple polyps were seen in the colon throughout the procedure. Avoid fecal management devices or any enemas x 48 hours. Consider sucralfate enemas after 48 hours to aid in ulcer healing. Repeat colonoscopy non-urgently when patient is out of the hospital for polypectomy. Monitor, start clear diet, continue every 6 hrs CBC -6-30 Still with moderate amount of bleeding with dark blood and clots, Hgb however is stable, noticed slowed down with NPO, patient no appetite and prefer to be NPO for now and monitor 7-1 sips of clears 7-2, stable, stools brown- start clear liquids and monitor 7-3, tolerating clears , brown stools, wants to wait before advancing diet. Hgb stable 7-4 continue clears- stools brown, 7-5 advance diet to full liquid, monitorno bleed, does not want to advance Assessment & Plan (04/21/2025 8:10 PM CDT): Patient with bloody liquid from rectum late afternoon 04/07. Following Hgb 10.4->10.1->9.9->9.4->9.6. CTA of abd-pelvis did not reveal active bleeding source but lots of stool and what appeared to be stool ball in rectum. Digital exam did not reach stool but large amount of clotted blood in rectum. Start miralax TID and try to clear stool. GI consult on board with no plan to scope. - 04/08 given tap water and mineral oil enema, but no BM - 04/09 check KUB: Stool is again noted within the rectum, huge but bloody bowel movement after hypaque enema, Hgb trended down to 6.7, receive 1 unit prbc - 04/10 Hgb 8.3, sigmoidoscopy Preparation of the colon was inadequate. Blood and clots seen in recto-sigmoid colon. Ulcerated, ooozing mucosa in the distal rectum. Treated with goldprobe. Hemostatic spray applied. Avoid AC and ASA for 2 days per GI. Avoid enema, continue PO bowel regimen - 04/11 continued rectal bleed, Hgb down to 6.6, given prbc, d/w GI and consulted CRS - limited options, gelfoam soaked with epi plug per rectum applied, no surgical candidate. Continue huge/large bleeding with dark blood and large clots, given 3 units prbc and 1 unit platelet to help with hemostasis (as still within 5 days after Plavix held), Hgb maintained between 8-9.6, BP stable. See significant event notes - 04/12 Colonoscopy done: Clotted blood was found in the rectum. A large area of ulcerated mucosa was found in the rectum with adherent clot. Oozing was present. The clot was not removed. To stop active bleeding, hemostatic spray was deployed. Two sprays were applied. There was no bleeding at the end of the procedure. Multiple small-mouthed diverticula were found in the sigmoid colon. Multiple polyps were seen in the colon throughout the procedure. Avoid fecal management devices or any enemas x 48 hours. Consider sucralfate enemas after 48 hours to aid in ulcer healing. Repeat colonoscopy non-urgently when patient is out of the hospital for polypectomy. Monitor, start clear diet, continue every 6 hrs CBC -6-30 Still with moderate amount of bleeding with dark blood and clots, Hgb however is stable, noticed slowed down with NPO, patient no appetite and prefer to be NPO for now and monitor 7-1 sips of clears 7-2, stable, stools brown- start clear liquids and monitor 7-3, tolerating clears , brown stools, wants to wait before advancing diet. Hgb stable 7-4 continue clears- stools brown, 7-5 advance diet to full liquid, monitor Assessment & Plan (04/20/2025 7:27 PM CDT): Patient with bloody liquid from rectum late afternoon 04/07. Following Hgb 10.4->10.1->9.9->9.4->9.6. CTA of abd-pelvis did not reveal active bleeding source but lots of stool and what appeared to be stool ball in rectum. Digital exam did not reach stool but large amount of clotted blood in rectum. Start miralax TID and try to clear stool. GI consult on board with no plan to scope. - 04/08 given tap water and mineral oil enema, but no BM - 04/09 check KUB: Stool is again noted within the rectum, huge but bloody bowel movement after hypaque enema, Hgb trended down to 6.7, receive 1 unit prbc - 04/10 Hgb 8.3, sigmoidoscopy Preparation of the colon was inadequate. Blood and clots seen in recto-sigmoid colon. Ulcerated, ooozing mucosa in the distal rectum. Treated with goldprobe. Hemostatic spray applied. Avoid AC and ASA for 2 days per GI. Avoid enema, continue PO bowel regimen - 04/11 continued rectal bleed, Hgb down to 6.6, given prbc, d/w GI and consulted CRS - limited options, gelfoam soaked with epi plug per rectum applied, no surgical candidate. Continue huge/large bleeding with dark blood and large clots, given 3 units prbc and 1 unit platelet to help with hemostasis (as still within 5 days after Plavix held), Hgb maintained between 8-9.6, BP stable. See significant event notes - 04/12 Colonoscopy done: Clotted blood was found in the rectum. A large area of ulcerated mucosa was found in the rectum with adherent clot. Oozing was present. The clot was not removed. To stop active bleeding, hemostatic spray was deployed. Two sprays were applied. There was no bleeding at the end of the procedure. Multiple small-mouthed diverticula were found in the sigmoid colon. Multiple polyps were seen in the colon throughout the procedure. Avoid fecal management devices or any enemas x 48 hours. Consider sucralfate enemas after 48 hours to aid in ulcer healing. Repeat colonoscopy non-urgently when patient is out of the hospital for polypectomy. Monitor, start clear diet, continue every 6 hrs CBC -6-30 Still with moderate amount of bleeding with dark blood and clots, Hgb however is stable, noticed slowed down with NPO, patient no appetite and prefer to be NPO for now and monitor 7-1 sips of clears 7-2, stable, stools brown- start clear liquids and monitor 7-3, tolerating clears , brown stools, wants to wait before advancing diet. Hgb stable 7-4 continue clears- stools brown, monitor 7-5 advance diet to full liquid Assessment & Plan (04/19/2025 8:18 PM CDT): Patient with bloody liquid from rectum late afternoon 04/07. Following Hgb 10.4->10.1->9.9->9.4->9.6. CTA of abd-pelvis did not reveal active bleeding source but lots of stool and what appeared to be stool ball in rectum. Digital exam did not reach stool but large amount of clotted blood in rectum. Start miralax TID and try to clear stool. GI consult on board with no plan to scope. - 04/08 given tap water and mineral oil enema, but no BM - 04/09 check KUB: Stool is again noted within the rectum, huge but bloody bowel movement after hypaque enema, Hgb trended down to 6.7, receive 1 unit prbc - 04/10 Hgb 8.3, sigmoidoscopy Preparation of the colon was inadequate. Blood and clots seen in recto-sigmoid colon. Ulcerated, ooozing mucosa in the distal rectum. Treated with goldprobe. Hemostatic spray applied. Avoid AC and ASA for 2 days per GI. Avoid enema, continue PO bowel regimen - 04/11 continued rectal bleed, Hgb down to 6.6, given prbc, d/w GI and consulted CRS - limited options, gelfoam soaked with epi plug per rectum applied, no surgical candidate. Continue huge/large bleeding with dark blood and large clots, given 3 units prbc and 1 unit platelet to help with hemostasis (as still within 5 days after Plavix held), Hgb maintained between 8-9.6, BP stable. See significant event notes - 04/12 Colonoscopy done: Clotted blood was found in the rectum. A large area of ulcerated mucosa was found in the rectum with adherent clot. Oozing was present. The clot was not removed. To stop active bleeding, hemostatic spray was deployed. Two sprays were applied. There was no bleeding at the end of the procedure. Multiple small-mouthed diverticula were found in the sigmoid colon. Multiple polyps were seen in the colon throughout the procedure. Avoid fecal management devices or any enemas x 48 hours. Consider sucralfate enemas after 48 hours to aid in ulcer healing. Repeat colonoscopy non-urgently when patient is out of the hospital for polypectomy. Monitor, start clear diet, continue every 6 hrs CBC -04-15 Still with moderate amount of bleeding with dark blood and clots, Hgb however is stable, noticed slowed down with NPO, patient no appetite and prefer to be NPO for now and monitor 7-1 sips of clears 7-2, stable, stools brown- start clear liquids and monitor 7-3, tolerating clears , brown stools, wants to wait before advancing diet. Hgb stable 7-4 continue clears-monitor Assessment & Plan (04/18/2025 7:47 PM CDT): Patient with bloody liquid from rectum late afternoon 04/07. Following Hgb 10.4->10.1->9.9->9.4->9.6. CTA of abd-pelvis did not reveal active bleeding source but lots of stool and what appeared to be stool ball in rectum. Digital exam did not reach stool but large amount of clotted blood in rectum. Start miralax TID and try to clear stool. GI consult on board with no plan to scope. - 04/08 given tap water and mineral oil enema, but no BM - 04/09 check KUB: Stool is again noted within the rectum, huge but bloody bowel movement after hypaque enema, Hgb trended down to 6.7, receive 1 unit prbc - 04/10 Hgb 8.3, sigmoidoscopy Preparation of the colon was inadequate. Blood and clots seen in recto-sigmoid colon. Ulcerated, ooozing mucosa in the distal rectum. Treated with goldprobe. Hemostatic spray applied. Avoid AC and ASA for 2 days per GI. Avoid enema, continue PO bowel regimen - 04/11 continued rectal bleed, Hgb down to 6.6, given prbc, d/w GI and consulted CRS - limited options, gelfoam soaked with epi plug per rectum applied, no surgical candidate. Continue huge/large bleeding with dark blood and large clots, given 3 units prbc and 1 unit platelet to help with hemostasis (as still within 5 days after Plavix held), Hgb maintained between 8-9.6, BP stable. See significant event notes - 04/12 Colonoscopy done: Clotted blood was found in the rectum. A large area of ulcerated mucosa was found in the rectum with adherent clot. Oozing was present. The clot was not removed. To stop active bleeding, hemostatic spray was deployed. Two sprays were applied. There was no bleeding at the end of the procedure. Multiple small-mouthed diverticula were found in the sigmoid colon. Multiple polyps were seen in the colon throughout the procedure. Avoid fecal management devices or any enemas x 48 hours. Consider sucralfate enemas after 48 hours to aid in ulcer healing. Repeat colonoscopy non-urgently when patient is out of the hospital for polypectomy. Monitor, start clear diet, continue every 6 hrs CBC --30 Still with moderate amount of bleeding with dark blood and clots, Hgb however is stable, noticed slowed down with NPO, patient no appetite and prefer to be NPO for now and monitor 7-1 sips of clears 7-2, stable, stools brown- start clear liquids and monitor 7-3, tolerating clears , brown stools, wants to wait befoe advancing diet. Hgb stable Assessment & Plan (04/18/2025 12:22 AM CDT): Patient with bloody liquid from rectum late afternoon 04/07. Following Hgb 10.4->10.1->9.9->9.4->9.6. CTA of abd-pelvis did not reveal active bleeding source but lots of stool and what appeared to be stool ball in rectum. Digital exam did not reach stool but large amount of clotted blood in rectum. Start miralax TID and try to clear stool. GI consult on board with no plan to scope. - 04/08 given tap water and mineral oil enema, but no BM - 04/09 check KUB: Stool is again noted within the rectum, huge but bloody bowel movement after hypaque enema, Hgb trended down to 6.7, receive 1 unit prbc - 04/10 Hgb 8.3, sigmoidoscopy Preparation of the colon was inadequate. Blood and clots seen in recto-sigmoid colon. Ulcerated, ooozing mucosa in the distal rectum. Treated with goldprobe. Hemostatic spray applied. Avoid AC and ASA for 2 days per GI. Avoid enema, continue PO bowel regimen - 04/11 continued rectal bleed, Hgb down to 6.6, given prbc, d/w GI and consulted CRS - limited options, gelfoam soaked with epi plug per rectum applied, no surgical candidate. Continue huge/large bleeding with dark blood and large clots, given 3 units prbc and 1 unit platelet to help with hemostasis (as still within 5 days after Plavix held), Hgb maintained between 8-9.6, BP stable. See significant event notes - 04/12 Colonoscopy done: Clotted blood was found in the rectum. A large area of ulcerated mucosa was found in the rectum with adherent clot. Oozing was present. The clot was not removed. To stop active bleeding, hemostatic spray was deployed. Two sprays were applied. There was no bleeding at the end of the procedure. Multiple small-mouthed diverticula were found in the sigmoid colon. Multiple polyps were seen in the colon throughout the procedure. Avoid fecal management devices or any enemas x 48 hours. Consider sucralfate enemas after 48 hours to aid in ulcer healing. Repeat colonoscopy non-urgently when patient is out of the hospital for polypectomy. Monitor, start clear diet, continue every 6 hrs CBC - Still with moderate amount of bleeding with dark blood and clots, Hgb however is stable, noticed slowed down with NPO, patient no appetite and prefer to be NPO for now and monitor 7-2, stable, stools brown- start clear liquids and monitor Assessment & Plan (04/16/2025 1:42 PM CDT): Patient with bloody liquid from rectum late afternoon 04/07. Following Hgb 10.4->10.1->9.9->9.4->9.6. CTA of abd-pelvis did not reveal active bleeding source but lots of stool and what appeared to be stool ball in rectum. Digital exam did not reach stool but large amount of clotted blood in rectum. Start miralax TID and try to clear stool. GI consult on board with no plan to scope. - 04/08 given tap water and mineral oil enema, but no BM - 04/09 check KUB: Stool is again noted within the rectum, huge but bloody bowel movement after hypaque enema, Hgb trended down to 6.7, receive 1 unit prbc - 04/10 Hgb 8.3, sigmoidoscopy Preparation of the colon was inadequate. Blood and clots seen in recto-sigmoid colon. Ulcerated, ooozing mucosa in the distal rectum. Treated with goldprobe. Hemostatic spray applied. Avoid AC and ASA for 2 days per GI. Avoid enema, continue PO bowel regimen - 04/11 continued rectal bleed, Hgb down to 6.6, given prbc, d/w GI and consulted CRS - limited options, gelfoam soaked with epi plug per rectum applied, no surgical candidate. Continue huge/large bleeding with dark blood and large clots, given 3 units prbc and 1 unit platelet to help with hemostasis (as still within 5 days after Plavix held), Hgb maintained between 8-9.6, BP stable. See significant event notes - 04/12 Colonoscopy done: Clotted blood was found in the rectum. A large area of ulcerated mucosa was found in the rectum with adherent clot. Oozing was present. The clot was not removed. To stop active bleeding, hemostatic spray was deployed. Two sprays were applied. There was no bleeding at the end of the procedure. Multiple small-mouthed diverticula were found in the sigmoid colon. Multiple polyps were seen in the colon throughout the procedure. Avoid fecal management devices or any enemas x 48 hours. Consider sucralfate enemas after 48 hours to aid in ulcer healing. Repeat colonoscopy non-urgently when patient is out of the hospital for polypectomy. Monitor, start clear diet, continue every 6 hrs CBC - Still with moderate amount of bleeding with dark blood and clots, Hgb however is stable, noticed slowed down with NPO, patient no appetite and prefer to be NPO for now and monitor Assessment & Plan (04/15/2025 8:16 AM CDT): Patient with bloody liquid from rectum late afternoon 04/07. Following Hgb 10.4->10.1->9.9->9.4->9.6. CTA of abd-pelvis did not reveal active bleeding source but lots of stool and what appeared to be stool ball in rectum. Digital exam did not reach stool but large amount of clotted blood in rectum. Start miralax TID and try to clear stool. GI consult on board with no plan to scope. - 04/08 given tap water and mineral oil enema, but no BM - 04/09 check KUB: Stool is again noted within the rectum, huge but bloody bowel movement after hypaque enema, Hgb trended down to 6.7, receive 1 unit prbc - 04/10 Hgb 8.3, sigmoidoscopy Preparation of the colon was inadequate. Blood and clots seen in recto-sigmoid colon. Ulcerated, ooozing mucosa in the distal rectum. Treated with goldprobe. Hemostatic spray applied. Avoid AC and ASA for 2 days per GI. Avoid enema, continue PO bowel regimen - 04/11 continued rectal bleed, Hgb down to 6.6, given prbc, d/w GI and consulted CRS - limited options, gelfoam soaked with epi plug per rectum applied, no surgical candidate. Continue huge/large bleeding with dark blood and large clots, given 3 units prbc and 1 unit platelet to help with hemostasis (as still within 5 days after Plavix held), Hgb maintained between 8-9.6, BP stable. See significant event notes - 04/12 Colonoscopy done: Clotted blood was found in the rectum. A large area of ulcerated mucosa was found in the rectum with adherent clot. Oozing was present. The clot was not removed. To stop active bleeding, hemostatic spray was deployed. Two sprays were applied. There was no bleeding at the end of the procedure. Multiple small-mouthed diverticula were found in the sigmoid colon. Multiple polyps were seen in the colon throughout the procedure. Avoid fecal management devices or any enemas x 48 hours. Consider sucralfate enemas after 48 hours to aid in ulcer healing. Repeat colonoscopy non-urgently when patient is out of the hospital for polypectomy. Monitor, start clear diet, continue every 6 hrs CBC - Still with moderate amount of bleeding with dark blood and clots, Hgb however is stable, noticed slowed down with NPO, patient no appetite and prefer to be NPO for now and monitor Assessment & Plan (04/14/2025 11:36 AM CDT): Patient with bloody liquid from rectum late afternoon 04/07. Following Hgb 10.4->10.1->9.9->9.4->9.6. CTA of abd-pelvis did not reveal active bleeding source but lots of stool and what appeared to be stool ball in rectum. Digital exam did not reach stool but large amount of clotted blood in rectum. Start miralax TID and try to clear stool. GI consult on board with no plan to scope. - 04/08 given tap water and mineral oil enema, but no BM - 04/09 check KUB: Stool is again noted within the rectum, huge but bloody bowel movement after hypaque enema, Hgb trended down to 6.7, receive 1 unit prbc - 04/10 Hgb 8.3, sigmoidoscopy Preparation of the colon was inadequate. Blood and clots seen in recto-sigmoid colon. Ulcerated, ooozing mucosa in the distal rectum. Treated with goldprobe. Hemostatic spray applied. Avoid AC and ASA for 2 days per GI. Avoid enema, continue PO bowel regimen - 04/11 continued rectal bleed, Hgb down to 6.6, given prbc, d/w GI and consulted CRS - limited options, gelfoam soaked with epi plug per rectum applied, no surgical candidate. Continue huge/large bleeding with dark blood and large clots, given 3 units prbc and 1 unit platelet to help with hemostasis (as still within 5 days after Plavix held), Hgb maintained between 8-9.6, BP stable. See significant event notes - 04/12 Colonoscopy done: Clotted blood was found in the rectum. A large area of ulcerated mucosa was found in the rectum with adherent clot. Oozing was present. The clot was not removed. To stop active bleeding, hemostatic spray was deployed. Two sprays were applied. There was no bleeding at the end of the procedure. Multiple small-mouthed diverticula were found in the sigmoid colon. Multiple polyps were seen in the colon throughout the procedure. Avoid fecal management devices or any enemas x 48 hours. Consider sucralfate enemas after 48 hours to aid in ulcer healing. Repeat colonoscopy non-urgently when patient is out of the hospital for polypectomy. Monitor, start clear diet, continue every 6 hrs CBC - Still with moderate amount of bleeding with dark blood and clots, Hgb however is stable, noticed slowed down with NPO, patient no appetite and prefer to be NPO for now and monitor Gastrointestinal hemorrhage associated with anorectal source 04/08/2025 Assessment & Plan (05/10/2025 7:59 AM CDT): Patient with bloody liquid from rectum late afternoon 04/07. Following Hgb 10.4->10.1->9.9->9.4->9.6. CTA of abd-pelvis did not reveal active bleeding source but lots of stool and what appeared to be stool ball in rectum. Digital exam did not reach stool but large amount of clotted blood in rectum. Start miralax TID and try to clear stool. GI consult on board with no plan to scope. - 04/08 given tap water and mineral oil enema, but no BM - 04/09 check KUB: Stool is again noted within the rectum, huge but bloody bowel movement after hypaque enema, Hgb trended down to 6.7, receive 1 unit prbc - 04/10 Hgb 8.3, sigmoidoscopy Preparation of the colon was inadequate. Blood and clots seen in recto-sigmoid colon. Ulcerated, ooozing mucosa in the distal rectum. Treated with goldprobe. Hemostatic spray applied. Avoid AC and ASA for 2 days per GI. Avoid enema, continue PO bowel regimen - 04/11 continued rectal bleed, Hgb down to 6.6, given prbc, d/w GI and consulted CRS - limited options, gelfoam soaked with epi plug per rectum applied, not surgical candidate. Continue huge/large bleeding with dark blood and large clots, given 3 units prbc and 1 unit platelet to help with hemostasis (as still within 5 days after Plavix held), Hgb maintained between 8-9.6, BP stable. See significant event notes 04/12 Colonoscopy done: Clotted blood was found in the rectum. A large area of ulcerated mucosa was found in the rectum with adherent clot. Oozing was present. The clot was not removed. To stop active bleeding, hemostatic spray was deployed. Two sprays were applied. There was no bleeding at the end of the procedure. Multiple small-mouthed diverticula were found in the sigmoid colon. Multiple polyps were seen in the colon throughout the procedure. Avoid fecal management devices or any enemas x 48 hours. Consider sucralfate enemas after 48 hours to aid in ulcer healing. Repeat colonoscopy non-urgently when patient is out of the hospital for polypectomy. Monitor, start clear diet, continue every 6 hrs CBC 04/15 Still with moderate amount of bleeding with dark blood and clots, Hgb however is stable, noticed slowed down with NPO, patient no appetite and prefer to be NPO for now and monitor Gradually increased diet from 04/16-04/24 Consider resumption of plavix. Cardiology consult advised no plavix, start ECASA 81mg Blood count stable since starting aspirin Planning eventual polypectomy with GI as an outpatient. Had a BM 05/05 --Continue Miralax/senna prn Assessment & Plan (05/09/2025 7:59 AM CDT): Patient with bloody liquid from rectum late afternoon 04/07. Following Hgb 10.4->10.1->9.9->9.4->9.6. CTA of abd-pelvis did not reveal active bleeding source but lots of stool and what appeared to be stool ball in rectum. Digital exam did not reach stool but large amount of clotted blood in rectum. Start miralax TID and try to clear stool. GI consult on board with no plan to scope. - 04/08 given tap water and mineral oil enema, but no BM - 04/09 check KUB: Stool is again noted within the rectum, huge but bloody bowel movement after hypaque enema, Hgb trended down to 6.7, receive 1 unit prbc - 04/10 Hgb 8.3, sigmoidoscopy Preparation of the colon was inadequate. Blood and clots seen in recto-sigmoid colon. Ulcerated, ooozing mucosa in the distal rectum. Treated with goldprobe. Hemostatic spray applied. Avoid AC and ASA for 2 days per GI. Avoid enema, continue PO bowel regimen - 04/11 continued rectal bleed, Hgb down to 6.6, given prbc, d/w GI and consulted CRS - limited options, gelfoam soaked with epi plug per rectum applied, not surgical candidate. Continue huge/large bleeding with dark blood and large clots, given 3 units prbc and 1 unit platelet to help with hemostasis (as still within 5 days after Plavix held), Hgb maintained between 8-9.6, BP stable. See significant event notes 04/12 Colonoscopy done: Clotted blood was found in the rectum. A large area of ulcerated mucosa was found in the rectum with adherent clot. Oozing was present. The clot was not removed. To stop active bleeding, hemostatic spray was deployed. Two sprays were applied. There was no bleeding at the end of the procedure. Multiple small-mouthed diverticula were found in the sigmoid colon. Multiple polyps were seen in the colon throughout the procedure. Avoid fecal management devices or any enemas x 48 hours. Consider sucralfate enemas after 48 hours to aid in ulcer healing. Repeat colonoscopy non-urgently when patient is out of the hospital for polypectomy. Monitor, start clear diet, continue every 6 hrs CBC 04/15 Still with moderate amount of bleeding with dark blood and clots, Hgb however is stable, noticed slowed down with NPO, patient no appetite and prefer to be NPO for now and monitor Gradually increased diet from 04/16-04/24 Consider resumption of plavix. Cardiology consult advised no plavix, start ECASA 81mg Blood count stable since starting aspirin Planning eventual polypectomy with GI as an outpatient. Had a BM 05/05 --Continue Miralax/senna prn Assessment & Plan (05/08/2025 7:40 AM CDT): Patient with bloody liquid from rectum late afternoon 04/07. Following Hgb 10.4->10.1->9.9->9.4->9.6. CTA of abd-pelvis did not reveal active bleeding source but lots of stool and what appeared to be stool ball in rectum. Digital exam did not reach stool but large amount of clotted blood in rectum. Start miralax TID and try to clear stool. GI consult on board with no plan to scope. - 04/08 given tap water and mineral oil enema, but no BM - 04/09 check KUB: Stool is again noted within the rectum, huge but bloody bowel movement after hypaque enema, Hgb trended down to 6.7, receive 1 unit prbc - 04/10 Hgb 8.3, sigmoidoscopy Preparation of the colon was inadequate. Blood and clots seen in recto-sigmoid colon. Ulcerated, ooozing mucosa in the distal rectum. Treated with goldprobe. Hemostatic spray applied. Avoid AC and ASA for 2 days per GI. Avoid enema, continue PO bowel regimen - 04/11 continued rectal bleed, Hgb down to 6.6, given prbc, d/w GI and consulted CRS - limited options, gelfoam soaked with epi plug per rectum applied, not surgical candidate. Continue huge/large bleeding with dark blood and large clots, given 3 units prbc and 1 unit platelet to help with hemostasis (as still within 5 days after Plavix held), Hgb maintained between 8-9.6, BP stable. See significant event notes 04/12 Colonoscopy done: Clotted blood was found in the rectum. A large area of ulcerated mucosa was found in the rectum with adherent clot. Oozing was present. The clot was not removed. To stop active bleeding, hemostatic spray was deployed. Two sprays were applied. There was no bleeding at the end of the procedure. Multiple small-mouthed diverticula were found in the sigmoid colon. Multiple polyps were seen in the colon throughout the procedure. Avoid fecal management devices or any enemas x 48 hours. Consider sucralfate enemas after 48 hours to aid in ulcer healing. Repeat colonoscopy non-urgently when patient is out of the hospital for polypectomy. Monitor, start clear diet, continue every 6 hrs CBC 04/15 Still with moderate amount of bleeding with dark blood and clots, Hgb however is stable, noticed slowed down with NPO, patient no appetite and prefer to be NPO for now and monitor Gradually increased diet from 04/16-04/24 Consider resumption of plavix. Cardiology consult advised no plavix, start ECASA 81mg Blood count stable since starting aspirin Planning eventual polypectomy with GI as an outpatient. Had a BM 05/05 --Continue Miralax/senna prn Assessment & Plan (05/07/2025 7:31 AM CDT): Patient with bloody liquid from rectum late afternoon 04/07. Following Hgb 10.4->10.1->9.9->9.4->9.6. CTA of abd-pelvis did not reveal active bleeding source but lots of stool and what appeared to be stool ball in rectum. Digital exam did not reach stool but large amount of clotted blood in rectum. Start miralax TID and try to clear stool. GI consult on board with no plan to scope. - 04/08 given tap water and mineral oil enema, but no BM - 04/09 check KUB: Stool is again noted within the rectum, huge but bloody bowel movement after hypaque enema, Hgb trended down to 6.7, receive 1 unit prbc - 04/10 Hgb 8.3, sigmoidoscopy Preparation of the colon was inadequate. Blood and clots seen in recto-sigmoid colon. Ulcerated, ooozing mucosa in the distal rectum. Treated with goldprobe. Hemostatic spray applied. Avoid AC and ASA for 2 days per GI. Avoid enema, continue PO bowel regimen - 04/11 continued rectal bleed, Hgb down to 6.6, given prbc, d/w GI and consulted CRS - limited options, gelfoam soaked with epi plug per rectum applied, not surgical candidate. Continue huge/large bleeding with dark blood and large clots, given 3 units prbc and 1 unit platelet to help with hemostasis (as still within 5 days after Plavix held), Hgb maintained between 8-9.6, BP stable. See significant event notes 04/12 Colonoscopy done: Clotted blood was found in the rectum. A large area of ulcerated mucosa was found in the rectum with adherent clot. Oozing was present. The clot was not removed. To stop active bleeding, hemostatic spray was deployed. Two sprays were applied. There was no bleeding at the end of the procedure. Multiple small-mouthed diverticula were found in the sigmoid colon. Multiple polyps were seen in the colon throughout the procedure. Avoid fecal management devices or any enemas x 48 hours. Consider sucralfate enemas after 48 hours to aid in ulcer healing. Repeat colonoscopy non-urgently when patient is out of the hospital for polypectomy. Monitor, start clear diet, continue every 6 hrs CBC 04/15 Still with moderate amount of bleeding with dark blood and clots, Hgb however is stable, noticed slowed down with NPO, patient no appetite and prefer to be NPO for now and monitor Gradually increased diet from 04/16-04/24 Consider resumption of plavix. Cardiology consult advised no plavix, start ECASA 81mg Blood count stable since starting aspirin Planning eventual polypectomy with GI as an outpatient. Had a BM 05/05 --Continue Miralax/senna prn Assessment & Plan (05/06/2025 4:49 PM CDT): Patient with bloody liquid from rectum late afternoon 04/07. Following Hgb 10.4->10.1->9.9->9.4->9.6. CTA of abd-pelvis did not reveal active bleeding source but lots of stool and what appeared to be stool ball in rectum. Digital exam did not reach stool but large amount of clotted blood in rectum. Start miralax TID and try to clear stool. GI consult on board with no plan to scope. - 04/08 given tap water and mineral oil enema, but no BM - 04/09 check KUB: Stool is again noted within the rectum, huge but bloody bowel movement after hypaque enema, Hgb trended down to 6.7, receive 1 unit prbc - 04/10 Hgb 8.3, sigmoidoscopy Preparation of the colon was inadequate. Blood and clots seen in recto-sigmoid colon. Ulcerated, ooozing mucosa in the distal rectum. Treated with goldprobe. Hemostatic spray applied. Avoid AC and ASA for 2 days per GI. Avoid enema, continue PO bowel regimen - 04/11 continued rectal bleed, Hgb down to 6.6, given prbc, d/w GI and consulted CRS - limited options, gelfoam soaked with epi plug per rectum applied, not surgical candidate. Continue huge/large bleeding with dark blood and large clots, given 3 units prbc and 1 unit platelet to help with hemostasis (as still within 5 days after Plavix held), Hgb maintained between 8-9.6, BP stable. See significant event notes 04/12 Colonoscopy done: Clotted blood was found in the rectum. A large area of ulcerated mucosa was found in the rectum with adherent clot. Oozing was present. The clot was not removed. To stop active bleeding, hemostatic spray was deployed. Two sprays were applied. There was no bleeding at the end of the procedure. Multiple small-mouthed diverticula were found in the sigmoid colon. Multiple polyps were seen in the colon throughout the procedure. Avoid fecal management devices or any enemas x 48 hours. Consider sucralfate enemas after 48 hours to aid in ulcer healing. Repeat colonoscopy non-urgently when patient is out of the hospital for polypectomy. Monitor, start clear diet, continue every 6 hrs CBC 04/15 Still with moderate amount of bleeding with dark blood and clots, Hgb however is stable, noticed slowed down with NPO, patient no appetite and prefer to be NPO for now and monitor Gradually increased diet from 04/16-04/24 Consider resumption of plavix. Cardiology consult advised no plavix, start ECASA 81mg Blood count stable since starting aspirin Planning eventual polypectomy with GI as an outpatient. Had a BM 05/05 --Continue Miralax/senna prn Assessment & Plan (05/05/2025 3:50 PM CDT): Patient with bloody liquid from rectum late afternoon 04/07. Following Hgb 10.4->10.1->9.9->9.4->9.6. CTA of abd-pelvis did not reveal active bleeding source but lots of stool and what appeared to be stool ball in rectum. Digital exam did not reach stool but large amount of clotted blood in rectum. Start miralax TID and try to clear stool. GI consult on board with no plan to scope. - 04/08 given tap water and mineral oil enema, but no BM - 04/09 check KUB: Stool is again noted within the rectum, huge but bloody bowel movement after hypaque enema, Hgb trended down to 6.7, receive 1 unit prbc - 04/10 Hgb 8.3, sigmoidoscopy Preparation of the colon was inadequate. Blood and clots seen in recto-sigmoid colon. Ulcerated, ooozing mucosa in the distal rectum. Treated with goldprobe. Hemostatic spray applied. Avoid AC and ASA for 2 days per GI. Avoid enema, continue PO bowel regimen - 04/11 continued rectal bleed, Hgb down to 6.6, given prbc, d/w GI and consulted CRS - limited options, gelfoam soaked with epi plug per rectum applied, not surgical candidate. Continue huge/large bleeding with dark blood and large clots, given 3 units prbc and 1 unit platelet to help with hemostasis (as still within 5 days after Plavix held), Hgb maintained between 8-9.6, BP stable. See significant event notes 04/12 Colonoscopy done: Clotted blood was found in the rectum. A large area of ulcerated mucosa was found in the rectum with adherent clot. Oozing was present. The clot was not removed. To stop active bleeding, hemostatic spray was deployed. Two sprays were applied. There was no bleeding at the end of the procedure. Multiple small-mouthed diverticula were found in the sigmoid colon. Multiple polyps were seen in the colon throughout the procedure. Avoid fecal management devices or any enemas x 48 hours. Consider sucralfate enemas after 48 hours to aid in ulcer healing. Repeat colonoscopy non-urgently when patient is out of the hospital for polypectomy. Monitor, start clear diet, continue every 6 hrs CBC 04/15 Still with moderate amount of bleeding with dark blood and clots, Hgb however is stable, noticed slowed down with NPO, patient no appetite and prefer to be NPO for now and monitor Gradually increased diet from 04/16-04/24 Consider resumption of plavix. Cardiology consult advised no plavix, start ECASA 81mg Blood count stable since starting aspirin, 8.8-10.2 in the last 4 days, 9.1 today Planning eventual polypectomy with GI as an outpatient. Had a BM 05/05 --Continue Miralax prn Assessment & Plan (05/04/2025 3:57 PM CDT): Patient with bloody liquid from rectum late afternoon 04/07. Following Hgb 10.4->10.1->9.9->9.4->9.6. CTA of abd-pelvis did not reveal active bleeding source but lots of stool and what appeared to be stool ball in rectum. Digital exam did not reach stool but large amount of clotted blood in rectum. Start miralax TID and try to clear stool. GI consult on board with no plan to scope. - 04/08 given tap water and mineral oil enema, but no BM - 04/09 check KUB: Stool is again noted within the rectum, huge but bloody bowel movement after hypaque enema, Hgb trended down to 6.7, receive 1 unit prbc - 04/10 Hgb 8.3, sigmoidoscopy Preparation of the colon was inadequate. Blood and clots seen in recto-sigmoid colon. Ulcerated, ooozing mucosa in the distal rectum. Treated with goldprobe. Hemostatic spray applied. Avoid AC and ASA for 2 days per GI. Avoid enema, continue PO bowel regimen - 04/11 continued rectal bleed, Hgb down to 6.6, given prbc, d/w GI and consulted CRS - limited options, gelfoam soaked with epi plug per rectum applied, not surgical candidate. Continue huge/large bleeding with dark blood and large clots, given 3 units prbc and 1 unit platelet to help with hemostasis (as still within 5 days after Plavix held), Hgb maintained between 8-9.6, BP stable. See significant event notes 04/12 Colonoscopy done: Clotted blood was found in the rectum. A large area of ulcerated mucosa was found in the rectum with adherent clot. Oozing was present. The clot was not removed. To stop active bleeding, hemostatic spray was deployed. Two sprays were applied. There was no bleeding at the end of the procedure. Multiple small-mouthed diverticula were found in the sigmoid colon. Multiple polyps were seen in the colon throughout the procedure. Avoid fecal management devices or any enemas x 48 hours. Consider sucralfate enemas after 48 hours to aid in ulcer healing. Repeat colonoscopy non-urgently when patient is out of the hospital for polypectomy. Monitor, start clear diet, continue every 6 hrs CBC 04/15 Still with moderate amount of bleeding with dark blood and clots, Hgb however is stable, noticed slowed down with NPO, patient no appetite and prefer to be NPO for now and monitor Gradually increased diet from 04/16-04/24 Consider resumption of plavix. Cardiology consult advised no plavix, start ECASA 81mg Blood count stable since starting aspirin, 8.8-10.2 in the last 4 days, 9.1 today Planning eventual polypectomy with GI as an outpatient. Assessment & Plan (05/03/2025 1:22 PM CDT): Patient with bloody liquid from rectum late afternoon 04/07. Following Hgb 10.4->10.1->9.9->9.4->9.6. CTA of abd-pelvis did not reveal active bleeding source but lots of stool and what appeared to be stool ball in rectum. Digital exam did not reach stool but large amount of clotted blood in rectum. Start miralax TID and try to clear stool. GI consult on board with no plan to scope. - 04/08 given tap water and mineral oil enema, but no BM - 04/09 check KUB: Stool is again noted within the rectum, huge but bloody bowel movement after hypaque enema, Hgb trended down to 6.7, receive 1 unit prbc - 04/10 Hgb 8.3, sigmoidoscopy Preparation of the colon was inadequate. Blood and clots seen in recto-sigmoid colon. Ulcerated, ooozing mucosa in the distal rectum. Treated with goldprobe. Hemostatic spray applied. Avoid AC and ASA for 2 days per GI. Avoid enema, continue PO bowel regimen - 04/11 continued rectal bleed, Hgb down to 6.6, given prbc, d/w GI and consulted CRS - limited options, gelfoam soaked with epi plug per rectum applied, not surgical candidate. Continue huge/large bleeding with dark blood and large clots, given 3 units prbc and 1 unit platelet to help with hemostasis (as still within 5 days after Plavix held), Hgb maintained between 8-9.6, BP stable. See significant event notes 04/12 Colonoscopy done: Clotted blood was found in the rectum. A large area of ulcerated mucosa was found in the rectum with adherent clot. Oozing was present. The clot was not removed. To stop active bleeding, hemostatic spray was deployed. Two sprays were applied. There was no bleeding at the end of the procedure. Multiple small-mouthed diverticula were found in the sigmoid colon. Multiple polyps were seen in the colon throughout the procedure. Avoid fecal management devices or any enemas x 48 hours. Consider sucralfate enemas after 48 hours to aid in ulcer healing. Repeat colonoscopy non-urgently when patient is out of the hospital for polypectomy. Monitor, start clear diet, continue every 6 hrs CBC 04/15 Still with moderate amount of bleeding with dark blood and clots, Hgb however is stable, noticed slowed down with NPO, patient no appetite and prefer to be NPO for now and monitor Gradually increased diet from 04/16-04/24 Consider resumption of plavix. Cardiology consult advised no plavix, start ECASA 81mg Blood count stable since starting aspirin, 9.1/28.6 Planning eventual polypectomy with GI as an outpatient. Assessment & Plan (05/02/2025 1:13 PM CDT): Patient with bloody liquid from rectum late afternoon 04/07. Following Hgb 10.4->10.1->9.9->9.4->9.6. CTA of abd-pelvis did not reveal active bleeding source but lots of stool and what appeared to be stool ball in rectum. Digital exam did not reach stool but large amount of clotted blood in rectum. Start miralax TID and try to clear stool. GI consult on board with no plan to scope. - 04/08 given tap water and mineral oil enema, but no BM - 04/09 check KUB: Stool is again noted within the rectum, huge but bloody bowel movement after hypaque enema, Hgb trended down to 6.7, receive 1 unit prbc - 04/10 Hgb 8.3, sigmoidoscopy Preparation of the colon was inadequate. Blood and clots seen in recto-sigmoid colon. Ulcerated, ooozing mucosa in the distal rectum. Treated with goldprobe. Hemostatic spray applied. Avoid AC and ASA for 2 days per GI. Avoid enema, continue PO bowel regimen - 04/11 continued rectal bleed, Hgb down to 6.6, given prbc, d/w GI and consulted CRS - limited options, gelfoam soaked with epi plug per rectum applied, not surgical candidate. Continue huge/large bleeding with dark blood and large clots, given 3 units prbc and 1 unit platelet to help with hemostasis (as still within 5 days after Plavix held), Hgb maintained between 8-9.6, BP stable. See significant event notes 04/12 Colonoscopy done: Clotted blood was found in the rectum. A large area of ulcerated mucosa was found in the rectum with adherent clot. Oozing was present. The clot was not removed. To stop active bleeding, hemostatic spray was deployed. Two sprays were applied. There was no bleeding at the end of the procedure. Multiple small-mouthed diverticula were found in the sigmoid colon. Multiple polyps were seen in the colon throughout the procedure. Avoid fecal management devices or any enemas x 48 hours. Consider sucralfate enemas after 48 hours to aid in ulcer healing. Repeat colonoscopy non-urgently when patient is out of the hospital for polypectomy. Monitor, start clear diet, continue every 6 hrs CBC 04/15 Still with moderate amount of bleeding with dark blood and clots, Hgb however is stable, noticed slowed down with NPO, patient no appetite and prefer to be NPO for now and monitor Gradually increased diet from 04/16-04/23 Hgb stable 04/24: Hgb=9.7. Consider resumption of plavix. Cardiology consult advised no plavix, start ECASA 81mg Blood count stable since starting aspirin, 9.11/13.6 Planning eventual polypectomy with GI as an outpatient. Assessment & Plan (04/30/2025 5:18 PM CDT): Patient with bloody liquid from rectum late afternoon 04/07. Following Hgb 10.4->10.1->9.9->9.4->9.6. CTA of abd-pelvis did not reveal active bleeding source but lots of stool and what appeared to be stool ball in rectum. Digital exam did not reach stool but large amount of clotted blood in rectum. Start miralax TID and try to clear stool. GI consult on board with no plan to scope. - 04/08 given tap water and mineral oil enema, but no BM - 04/09 check KUB: Stool is again noted within the rectum, huge but bloody bowel movement after hypaque enema, Hgb trended down to 6.7, receive 1 unit prbc - 04/10 Hgb 8.3, sigmoidoscopy Preparation of the colon was inadequate. Blood and clots seen in recto-sigmoid colon. Ulcerated, ooozing mucosa in the distal rectum. Treated with goldprobe. Hemostatic spray applied. Avoid AC and ASA for 2 days per GI. Avoid enema, continue PO bowel regimen - 04/11 continued rectal bleed, Hgb down to 6.6, given prbc, d/w GI and consulted CRS - limited options, gelfoam soaked with epi plug per rectum applied, not surgical candidate. Continue huge/large bleeding with dark blood and large clots, given 3 units prbc and 1 unit platelet to help with hemostasis (as still within 5 days after Plavix held), Hgb maintained between 8-9.6, BP stable. See significant event notes 04/12 Colonoscopy done: Clotted blood was found in the rectum. A large area of ulcerated mucosa was found in the rectum with adherent clot. Oozing was present. The clot was not removed. To stop active bleeding, hemostatic spray was deployed. Two sprays were applied. There was no bleeding at the end of the procedure. Multiple small-mouthed diverticula were found in the sigmoid colon. Multiple polyps were seen in the colon throughout the procedure. Avoid fecal management devices or any enemas x 48 hours. Consider sucralfate enemas after 48 hours to aid in ulcer healing. Repeat colonoscopy non-urgently when patient is out of the hospital for polypectomy. Monitor, start clear diet, continue every 6 hrs CBC 04/15 Still with moderate amount of bleeding with dark blood and clots, Hgb however is stable, noticed slowed down with NPO, patient no appetite and prefer to be NPO for now and monitor Gradually increased diet from 04/16-04/23 Hgb stable 04/24: Hgb=9.7. Consider resumption of plavix. Cardiology consult advised no plavix, start ECASA 81mg Blood count stable since starting aspirin Planning eventual polypectomy with GI as an outpatient. Assessment & Plan (04/29/2025 10:33 AM CDT): Patient with bloody liquid from rectum late afternoon 04/07. Following Hgb 10.4->10.1->9.9->9.4->9.6. CTA of abd-pelvis did not reveal active bleeding source but lots of stool and what appeared to be stool ball in rectum. Digital exam did not reach stool but large amount of clotted blood in rectum. Start miralax TID and try to clear stool. GI consult on board with no plan to scope. - 04/08 given tap water and mineral oil enema, but no BM - 04/09 check KUB: Stool is again noted within the rectum, huge but bloody bowel movement after hypaque enema, Hgb trended down to 6.7, receive 1 unit prbc - 04/10 Hgb 8.3, sigmoidoscopy Preparation of the colon was inadequate. Blood and clots seen in recto-sigmoid colon. Ulcerated, ooozing mucosa in the distal rectum. Treated with goldprobe. Hemostatic spray applied. Avoid AC and ASA for 2 days per GI. Avoid enema, continue PO bowel regimen - 04/11 continued rectal bleed, Hgb down to 6.6, given prbc, d/w GI and consulted CRS - limited options, gelfoam soaked with epi plug per rectum applied, not surgical candidate. Continue huge/large bleeding with dark blood and large clots, given 3 units prbc and 1 unit platelet to help with hemostasis (as still within 5 days after Plavix held), Hgb maintained between 8-9.6, BP stable. See significant event notes - 04/12 Colonoscopy done: Clotted blood was found in the rectum. A large area of ulcerated mucosa was found in the rectum with adherent clot. Oozing was present. The clot was not removed. To stop active bleeding, hemostatic spray was deployed. Two sprays were applied. There was no bleeding at the end of the procedure. Multiple small-mouthed diverticula were found in the sigmoid colon. Multiple polyps were seen in the colon throughout the procedure. Avoid fecal management devices or any enemas x 48 hours. Consider sucralfate enemas after 48 hours to aid in ulcer healing. Repeat colonoscopy non-urgently when patient is out of the hospital for polypectomy. Monitor, start clear diet, continue every 6 hrs CBC -04/15 Still with moderate amount of bleeding with dark blood and clots, Hgb however is stable, noticed slowed down with NPO, patient no appetite and prefer to be NPO for now and monitor 7-1 sips of clears 7-2 stable, stools brown- start clear liquids and monitor 7-3 tolerating clears, brown stools, wants to wait before advancing diet. Hgb stable 7-4 continue clears- stools brown 7-5 advance diet to full liquid, monitor-no bleed, does not want to advance 8: Hgb=8.8 advance to regular diet and monitor 04/24: Hgb=9.7. Consider resumption of plavix. Cardiology consult advised no plavix, start ECASA 81mg 04/25. 04/25 Hgb=8.8 04/26 Hgb=8.9 04/27 Hgb=10.2 04/29 Hgb=8.8 no sign of bleeding Assessment & Plan (04/28/2025 11:48 AM CDT): Patient with bloody liquid from rectum late afternoon 04/07. Following Hgb 10.4->10.1->9.9->9.4->9.6. CTA of abd-pelvis did not reveal active bleeding source but lots of stool and what appeared to be stool ball in rectum. Digital exam did not reach stool but large amount of clotted blood in rectum. Start miralax TID and try to clear stool. GI consult on board with no plan to scope. - 04/08 given tap water and mineral oil enema, but no BM - 04/09 check KUB: Stool is again noted within the rectum, huge but bloody bowel movement after hypaque enema, Hgb trended down to 6.7, receive 1 unit prbc - 04/10 Hgb 8.3, sigmoidoscopy Preparation of the colon was inadequate. Blood and clots seen in recto-sigmoid colon. Ulcerated, ooozing mucosa in the distal rectum. Treated with goldprobe. Hemostatic spray applied. Avoid AC and ASA for 2 days per GI. Avoid enema, continue PO bowel regimen - 04/11 continued rectal bleed, Hgb down to 6.6, given prbc, d/w GI and consulted CRS - limited options, gelfoam soaked with epi plug per rectum applied, not surgical candidate. Continue huge/large bleeding with dark blood and large clots, given 3 units prbc and 1 unit platelet to help with hemostasis (as still within 5 days after Plavix held), Hgb maintained between 8-9.6, BP stable. See significant event notes - 04/12 Colonoscopy done: Clotted blood was found in the rectum. A large area of ulcerated mucosa was found in the rectum with adherent clot. Oozing was present. The clot was not removed. To stop active bleeding, hemostatic spray was deployed. Two sprays were applied. There was no bleeding at the end of the procedure. Multiple small-mouthed diverticula were found in the sigmoid colon. Multiple polyps were seen in the colon throughout the procedure. Avoid fecal management devices or any enemas x 48 hours. Consider sucralfate enemas after 48 hours to aid in ulcer healing. Repeat colonoscopy non-urgently when patient is out of the hospital for polypectomy. Monitor, start clear diet, continue every 6 hrs CBC -04/15 Still with moderate amount of bleeding with dark blood and clots, Hgb however is stable, noticed slowed down with NPO, patient no appetite and prefer to be NPO for now and monitor 7-1 sips of clears 7-2 stable, stools brown- start clear liquids and monitor 7-3 tolerating clears, brown stools, wants to wait before advancing diet. Hgb stable 7-4 continue clears- stools brown 7- advance diet to full liquid, monitor-no bleed, does not want to advance 04/23: Hgb=8.8 advance to regular diet and monitor 04/24: Hgb=9.7. Consider resumption of plavix. Cardiology consult advised no plavix, start ECASA 81mg 04/25. 04/25 Hgb=8.8 04/26 Hgb=8.9 no sign of bleeding 04/27 Hgb=10.2 Assessment & Plan (04/27/2025 9:58 AM CDT): Patient with bloody liquid from rectum late afternoon 04/07. Following Hgb 10.4->10.1->9.9->9.4->9.6. CTA of abd-pelvis did not reveal active bleeding source but lots of stool and what appeared to be stool ball in rectum. Digital exam did not reach stool but large amount of clotted blood in rectum. Start miralax TID and try to clear stool. GI consult on board with no plan to scope. - 04/08 given tap water and mineral oil enema, but no BM - 04/09 check KUB: Stool is again noted within the rectum, huge but bloody bowel movement after hypaque enema, Hgb trended down to 6.7, receive 1 unit prbc - 04/10 Hgb 8.3, sigmoidoscopy Preparation of the colon was inadequate. Blood and clots seen in recto-sigmoid colon. Ulcerated, ooozing mucosa in the distal rectum. Treated with goldprobe. Hemostatic spray applied. Avoid AC and ASA for 2 days per GI. Avoid enema, continue PO bowel regimen - 04/11 continued rectal bleed, Hgb down to 6.6, given prbc, d/w GI and consulted CRS - limited options, gelfoam soaked with epi plug per rectum applied, not surgical candidate. Continue huge/large bleeding with dark blood and large clots, given 3 units prbc and 1 unit platelet to help with hemostasis (as still within 5 days after Plavix held), Hgb maintained between 8-9.6, BP stable. See significant event notes - 04/12 Colonoscopy done: Clotted blood was found in the rectum. A large area of ulcerated mucosa was found in the rectum with adherent clot. Oozing was present. The clot was not removed. To stop active bleeding, hemostatic spray was deployed. Two sprays were applied. There was no bleeding at the end of the procedure. Multiple small-mouthed diverticula were found in the sigmoid colon. Multiple polyps were seen in the colon throughout the procedure. Avoid fecal management devices or any enemas x 48 hours. Consider sucralfate enemas after 48 hours to aid in ulcer healing. Repeat colonoscopy non-urgently when patient is out of the hospital for polypectomy. Monitor, start clear diet, continue every 6 hrs CBC -04/15 Still with moderate amount of bleeding with dark blood and clots, Hgb however is stable, noticed slowed down with NPO, patient no appetite and prefer to be NPO for now and monitor 7-1 sips of clears 7-2 stable, stools brown- start clear liquids and monitor 7-3 tolerating clears, brown stools, wants to wait before advancing diet. Hgb stable 7-4 continue clears- stools brown 7-5 advance diet to full liquid, monitor-no bleed, does not want to advance 04/23: Hgb=8.8 advance to regular diet and monitor 04/24: Hgb=9.7. Consider resumption of plavix. Cardiology consult advised no plavix, start ECASA 81mg 04/25. 04/25 Hgb=8.8 04/26 Hgb=8.9 no sign of bleeding 04/27 Hgb=10.2 Assessment & Plan (04/26/2025 10:07 AM CDT): Patient with bloody liquid from rectum late afternoon 04/07. Following Hgb 10.4->10.1->9.9->9.4->9.6. CTA of abd-pelvis did not reveal active bleeding source but lots of stool and what appeared to be stool ball in rectum. Digital exam did not reach stool but large amount of clotted blood in rectum. Start miralax TID and try to clear stool. GI consult on board with no plan to scope. - 04/08 given tap water and mineral oil enema, but no BM - 04/09 check KUB: Stool is again noted within the rectum, huge but bloody bowel movement after hypaque enema, Hgb trended down to 6.7, receive 1 unit prbc - 04/10 Hgb 8.3, sigmoidoscopy Preparation of the colon was inadequate. Blood and clots seen in recto-sigmoid colon. Ulcerated, ooozing mucosa in the distal rectum. Treated with goldprobe. Hemostatic spray applied. Avoid AC and ASA for 2 days per GI. Avoid enema, continue PO bowel regimen - 04/11 continued rectal bleed, Hgb down to 6.6, given prbc, d/w GI and consulted CRS - limited options, gelfoam soaked with epi plug per rectum applied, not surgical candidate. Continue huge/large bleeding with dark blood and large clots, given 3 units prbc and 1 unit platelet to help with hemostasis (as still within 5 days after Plavix held), Hgb maintained between 8-9.6, BP stable. See significant event notes - 04/12 Colonoscopy done: Clotted blood was found in the rectum. A large area of ulcerated mucosa was found in the rectum with adherent clot. Oozing was present. The clot was not removed. To stop active bleeding, hemostatic spray was deployed. Two sprays were applied. There was no bleeding at the end of the procedure. Multiple small-mouthed diverticula were found in the sigmoid colon. Multiple polyps were seen in the colon throughout the procedure. Avoid fecal management devices or any enemas x 48 hours. Consider sucralfate enemas after 48 hours to aid in ulcer healing. Repeat colonoscopy non-urgently when patient is out of the hospital for polypectomy. Monitor, start clear diet, continue every 6 hrs CBC -04/15 Still with moderate amount of bleeding with dark blood and clots, Hgb however is stable, noticed slowed down with NPO, patient no appetite and prefer to be NPO for now and monitor 7-1 sips of clears 7-2 stable, stools brown- start clear liquids and monitor 7-3 tolerating clears, brown stools, wants to wait before advancing diet. Hgb stable 7-4 continue clears- stools brown 7-5 advance diet to full liquid, monitor-no bleed, does not want to advance 04/23: Hgb=8.8 advance to regular diet and monitor 04/24: Hgb=9.7. Consider resumption of plavix. Cardiology consult advised no plavix, start ECASA 81mg 04/25. 04/25 Hgb=8.8 04/26 Hgb=8.9 no sign of bleeding Assessment & Plan (04/25/2025 10:43 AM CDT): Patient with bloody liquid from rectum late afternoon 04/07. Following Hgb 10.4->10.1->9.9->9.4->9.6. CTA of abd-pelvis did not reveal active bleeding source but lots of stool and what appeared to be stool ball in rectum. Digital exam did not reach stool but large amount of clotted blood in rectum. Start miralax TID and try to clear stool. GI consult on board with no plan to scope. - 04/08 given tap water and mineral oil enema, but no BM - 04/09 check KUB: Stool is again noted within the rectum, huge but bloody bowel movement after hypaque enema, Hgb trended down to 6.7, receive 1 unit prbc - 04/10 Hgb 8.3, sigmoidoscopy Preparation of the colon was inadequate. Blood and clots seen in recto-sigmoid colon. Ulcerated, ooozing mucosa in the distal rectum. Treated with goldprobe. Hemostatic spray applied. Avoid AC and ASA for 2 days per GI. Avoid enema, continue PO bowel regimen - 04/11 continued rectal bleed, Hgb down to 6.6, given prbc, d/w GI and consulted CRS - limited options, gelfoam soaked with epi plug per rectum applied, not surgical candidate. Continue huge/large bleeding with dark blood and large clots, given 3 units prbc and 1 unit platelet to help with hemostasis (as still within 5 days after Plavix held), Hgb maintained between 8-9.6, BP stable. See significant event notes - 6/27 Colonoscopy done: Clotted blood was found in the rectum. A large area of ulcerated mucosa was found in the rectum with adherent clot. Oozing was present. The clot was not removed. To stop active bleeding, hemostatic spray was deployed. Two sprays were applied. There was no bleeding at the end of the procedure. Multiple small-mouthed diverticula were found in the sigmoid colon. Multiple polyps were seen in the colon throughout the procedure. Avoid fecal management devices or any enemas x 48 hours. Consider sucralfate enemas after 48 hours to aid in ulcer healing. Repeat colonoscopy non-urgently when patient is out of the hospital for polypectomy. Monitor, start clear diet, continue every 6 hrs CBC -04/15 Still with moderate amount of bleeding with dark blood and clots, Hgb however is stable, noticed slowed down with NPO, patient no appetite and prefer to be NPO for now and monitor 7-1 sips of clears 7-2 stable, stools brown- start clear liquids and monitor 7-3 tolerating clears, brown stools, wants to wait before advancing diet. Hgb stable 7-4 continue clears- stools brown 7-5 advance diet to full liquid, monitor-no bleed, does not want to advance 04/23: advance to regular diet and monitor 04/24: Hgb=9.7. Consider resumption of plavix. Cardiology consult advised no plavix, start ECASA 81mg 04/25. Assessment & Plan (04/24/2025 11:01 AM CDT): Patient with bloody liquid from rectum late afternoon 04/07. Following Hgb 10.4->10.1->9.9->9.4->9.6. CTA of abd-pelvis did not reveal active bleeding source but lots of stool and what appeared to be stool ball in rectum. Digital exam did not reach stool but large amount of clotted blood in rectum. Start miralax TID and try to clear stool. GI consult on board with no plan to scope. - 04/08 given tap water and mineral oil enema, but no BM - 04/09 check KUB: Stool is again noted within the rectum, huge but bloody bowel movement after hypaque enema, Hgb trended down to 6.7, receive 1 unit prbc - 04/10 Hgb 8.3, sigmoidoscopy Preparation of the colon was inadequate. Blood and clots seen in recto-sigmoid colon. Ulcerated, ooozing mucosa in the distal rectum. Treated with goldprobe. Hemostatic spray applied. Avoid AC and ASA for 2 days per GI. Avoid enema, continue PO bowel regimen - 04/11 continued rectal bleed, Hgb down to 6.6, given prbc, d/w GI and consulted CRS - limited options, gelfoam soaked with epi plug per rectum applied, not surgical candidate. Continue huge/large bleeding with dark blood and large clots, given 3 units prbc and 1 unit platelet to help with hemostasis (as still within 5 days after Plavix held), Hgb maintained between 8-9.6, BP stable. See significant event notes - 04/12 Colonoscopy done: Clotted blood was found in the rectum. A large area of ulcerated mucosa was found in the rectum with adherent clot. Oozing was present. The clot was not removed. To stop active bleeding, hemostatic spray was deployed. Two sprays were applied. There was no bleeding at the end of the procedure. Multiple small-mouthed diverticula were found in the sigmoid colon. Multiple polyps were seen in the colon throughout the procedure. Avoid fecal management devices or any enemas x 48 hours. Consider sucralfate enemas after 48 hours to aid in ulcer healing. Repeat colonoscopy non-urgently when patient is out of the hospital for polypectomy. Monitor, start clear diet, continue every 6 hrs CBC -04/15 Still with moderate amount of bleeding with dark blood and clots, Hgb however is stable, noticed slowed down with NPO, patient no appetite and prefer to be NPO for now and monitor 7-1 sips of clears 7-2 stable, stools brown- start clear liquids and monitor 7-3 tolerating clears, brown stools, wants to wait before advancing diet. Hgb stable 7-4 continue clears- stools brown 7-5 advance diet to full liquid, monitor-no bleed, does not want to advance 7/8: advance to regular diet and monitor /9: Hgb=9.7. Consider resumption of plavix. Assessment & Plan (04/23/2025 2:21 PM CDT): Patient with bloody liquid from rectum late afternoon 04/07. Following Hgb 10.4->10.1->9.9->9.4->9.6. CTA of abd-pelvis did not reveal active bleeding source but lots of stool and what appeared to be stool ball in rectum. Digital exam did not reach stool but large amount of clotted blood in rectum. Start miralax TID and try to clear stool. GI consult on board with no plan to scope. - 04/08 given tap water and mineral oil enema, but no BM - 04/09 check KUB: Stool is again noted within the rectum, huge but bloody bowel movement after hypaque enema, Hgb trended down to 6.7, receive 1 unit prbc - 04/10 Hgb 8.3, sigmoidoscopy Preparation of the colon was inadequate. Blood and clots seen in recto-sigmoid colon. Ulcerated, ooozing mucosa in the distal rectum. Treated with goldprobe. Hemostatic spray applied. Avoid AC and ASA for 2 days per GI. Avoid enema, continue PO bowel regimen - 04/11 continued rectal bleed, Hgb down to 6.6, given prbc, d/w GI and consulted CRS - limited options, gelfoam soaked with epi plug per rectum applied, not surgical candidate. Continue huge/large bleeding with dark blood and large clots, given 3 units prbc and 1 unit platelet to help with hemostasis (as still within 5 days after Plavix held), Hgb maintained between 8-9.6, BP stable. See significant event notes - 04/12 Colonoscopy done: Clotted blood was found in the rectum. A large area of ulcerated mucosa was found in the rectum with adherent clot. Oozing was present. The clot was not removed. To stop active bleeding, hemostatic spray was deployed. Two sprays were applied. There was no bleeding at the end of the procedure. Multiple small-mouthed diverticula were found in the sigmoid colon. Multiple polyps were seen in the colon throughout the procedure. Avoid fecal management devices or any enemas x 48 hours. Consider sucralfate enemas after 48 hours to aid in ulcer healing. Repeat colonoscopy non-urgently when patient is out of the hospital for polypectomy. Monitor, start clear diet, continue every 6 hrs CBC -04/15 Still with moderate amount of bleeding with dark blood and clots, Hgb however is stable, noticed slowed down with NPO, patient no appetite and prefer to be NPO for now and monitor 7-1 sips of clears 7-2 stable, stools brown- start clear liquids and monitor 7-3 tolerating clears, brown stools, wants to wait before advancing diet. Hgb stable 7-4 continue clears- stools brown 7-5 advance diet to full liquid, monitor-no bleed, does not want to advance 8: advance to regular diet and monitor Assessment & Plan (04/23/2025 6:07 AM CDT): Patient with bloody liquid from rectum late afternoon 04/07. Following Hgb 10.4->10.1->9.9->9.4->9.6. CTA of abd-pelvis did not reveal active bleeding source but lots of stool and what appeared to be stool ball in rectum. Digital exam did not reach stool but large amount of clotted blood in rectum. Start miralax TID and try to clear stool. GI consult on board with no plan to scope. - 04/08 given tap water and mineral oil enema, but no BM - 04/09 check KUB: Stool is again noted within the rectum, huge but bloody bowel movement after hypaque enema, Hgb trended down to 6.7, receive 1 unit prbc - 04/10 Hgb 8.3, sigmoidoscopy Preparation of the colon was inadequate. Blood and clots seen in recto-sigmoid colon. Ulcerated, ooozing mucosa in the distal rectum. Treated with goldprobe. Hemostatic spray applied. Avoid AC and ASA for 2 days per GI. Avoid enema, continue PO bowel regimen - 04/11 continued rectal bleed, Hgb down to 6.6, given prbc, d/w GI and consulted CRS - limited options, gelfoam soaked with epi plug per rectum applied, no surgical candidate. Continue huge/large bleeding with dark blood and large clots, given 3 units prbc and 1 unit platelet to help with hemostasis (as still within 5 days after Plavix held), Hgb maintained between 8-9.6, BP stable. See significant event notes - 04/12 Colonoscopy done: Clotted blood was found in the rectum. A large area of ulcerated mucosa was found in the rectum with adherent clot. Oozing was present. The clot was not removed. To stop active bleeding, hemostatic spray was deployed. Two sprays were applied. There was no bleeding at the end of the procedure. Multiple small-mouthed diverticula were found in the sigmoid colon. Multiple polyps were seen in the colon throughout the procedure. Avoid fecal management devices or any enemas x 48 hours. Consider sucralfate enemas after 48 hours to aid in ulcer healing. Repeat colonoscopy non-urgently when patient is out of the hospital for polypectomy. Monitor, start clear diet, continue every 6 hrs CBC -6-30 Still with moderate amount of bleeding with dark blood and clots, Hgb however is stable, noticed slowed down with NPO, patient no appetite and prefer to be NPO for now and monitor 7-1 sips of clears 7-2, stable, stools brown- start clear liquids and monitor 7-3, tolerating clears , brown stools, wants to wait before advancing diet. Hgb stable 7-4 continue clears- stools brown, 7-5 advance diet to full liquid, monitorno bleed, does not want to advance Assessment & Plan (04/21/2025 8:10 PM CDT): Patient with bloody liquid from rectum late afternoon 04/07. Following Hgb 10.4->10.1->9.9->9.4->9.6. CTA of abd-pelvis did not reveal active bleeding source but lots of stool and what appeared to be stool ball in rectum. Digital exam did not reach stool but large amount of clotted blood in rectum. Start miralax TID and try to clear stool. GI consult on board with no plan to scope. - 04/08 given tap water and mineral oil enema, but no BM - 04/09 check KUB: Stool is again noted within the rectum, huge but bloody bowel movement after hypaque enema, Hgb trended down to 6.7, receive 1 unit prbc - 04/10 Hgb 8.3, sigmoidoscopy Preparation of the colon was inadequate. Blood and clots seen in recto-sigmoid colon. Ulcerated, ooozing mucosa in the distal rectum. Treated with goldprobe. Hemostatic spray applied. Avoid AC and ASA for 2 days per GI. Avoid enema, continue PO bowel regimen - 04/11 continued rectal bleed, Hgb down to 6.6, given prbc, d/w GI and consulted CRS - limited options, gelfoam soaked with epi plug per rectum applied, no surgical candidate. Continue huge/large bleeding with dark blood and large clots, given 3 units prbc and 1 unit platelet to help with hemostasis (as still within 5 days after Plavix held), Hgb maintained between 8-9.6, BP stable. See significant event notes - 04/12 Colonoscopy done: Clotted blood was found in the rectum. A large area of ulcerated mucosa was found in the rectum with adherent clot. Oozing was present. The clot was not removed. To stop active bleeding, hemostatic spray was deployed. Two sprays were applied. There was no bleeding at the end of the procedure. Multiple small-mouthed diverticula were found in the sigmoid colon. Multiple polyps were seen in the colon throughout the procedure. Avoid fecal management devices or any enemas x 48 hours. Consider sucralfate enemas after 48 hours to aid in ulcer healing. Repeat colonoscopy non-urgently when patient is out of the hospital for polypectomy. Monitor, start clear diet, continue every 6 hrs CBC -30 Still with moderate amount of bleeding with dark blood and clots, Hgb however is stable, noticed slowed down with NPO, patient no appetite and prefer to be NPO for now and monitor 7-1 sips of clears 7-2, stable, stools brown- start clear liquids and monitor 7-3, tolerating clears , brown stools, wants to wait before advancing diet. Hgb stable 7-4 continue clears- stools brown, 7-5 advance diet to full liquid, monitor Assessment & Plan (04/20/2025 7:27 PM CDT): Patient with bloody liquid from rectum late afternoon 04/07. Following Hgb 10.4->10.1->9.9->9.4->9.6. CTA of abd-pelvis did not reveal active bleeding source but lots of stool and what appeared to be stool ball in rectum. Digital exam did not reach stool but large amount of clotted blood in rectum. Start miralax TID and try to clear stool. GI consult on board with no plan to scope. - 04/08 given tap water and mineral oil enema, but no BM - 04/09 check KUB: Stool is again noted within the rectum, huge but bloody bowel movement after hypaque enema, Hgb trended down to 6.7, receive 1 unit prbc - 04/10 Hgb 8.3, sigmoidoscopy Preparation of the colon was inadequate. Blood and clots seen in recto-sigmoid colon. Ulcerated, ooozing mucosa in the distal rectum. Treated with goldprobe. Hemostatic spray applied. Avoid AC and ASA for 2 days per GI. Avoid enema, continue PO bowel regimen - 04/11 continued rectal bleed, Hgb down to 6.6, given prbc, d/w GI and consulted CRS - limited options, gelfoam soaked with epi plug per rectum applied, no surgical candidate. Continue huge/large bleeding with dark blood and large clots, given 3 units prbc and 1 unit platelet to help with hemostasis (as still within 5 days after Plavix held), Hgb maintained between 8-9.6, BP stable. See significant event notes - 04/12 Colonoscopy done: Clotted blood was found in the rectum. A large area of ulcerated mucosa was found in the rectum with adherent clot. Oozing was present. The clot was not removed. To stop active bleeding, hemostatic spray was deployed. Two sprays were applied. There was no bleeding at the end of the procedure. Multiple small-mouthed diverticula were found in the sigmoid colon. Multiple polyps were seen in the colon throughout the procedure. Avoid fecal management devices or any enemas x 48 hours. Consider sucralfate enemas after 48 hours to aid in ulcer healing. Repeat colonoscopy non-urgently when patient is out of the hospital for polypectomy. Monitor, start clear diet, continue every 6 hrs CBC -6-30 Still with moderate amount of bleeding with dark blood and clots, Hgb however is stable, noticed slowed down with NPO, patient no appetite and prefer to be NPO for now and monitor 7-1 sips of clears 7-2, stable, stools brown- start clear liquids and monitor 7-3, tolerating clears , brown stools, wants to wait before advancing diet. Hgb stable 7-4 continue clears- stools brown, monitor 7-5 advance diet to full liquid Assessment & Plan (04/19/2025 8:18 PM CDT): Patient with bloody liquid from rectum late afternoon 04/07. Following Hgb 10.4->10.1->9.9->9.4->9.6. CTA of abd-pelvis did not reveal active bleeding source but lots of stool and what appeared to be stool ball in rectum. Digital exam did not reach stool but large amount of clotted blood in rectum. Start miralax TID and try to clear stool. GI consult on board with no plan to scope. - 04/08 given tap water and mineral oil enema, but no BM - 04/09 check KUB: Stool is again noted within the rectum, huge but bloody bowel movement after hypaque enema, Hgb trended down to 6.7, receive 1 unit prbc - 04/10 Hgb 8.3, sigmoidoscopy Preparation of the colon was inadequate. Blood and clots seen in recto-sigmoid colon. Ulcerated, ooozing mucosa in the distal rectum. Treated with goldprobe. Hemostatic spray applied. Avoid AC and ASA for 2 days per GI. Avoid enema, continue PO bowel regimen - 04/11 continued rectal bleed, Hgb down to 6.6, given prbc, d/w GI and consulted CRS - limited options, gelfoam soaked with epi plug per rectum applied, no surgical candidate. Continue huge/large bleeding with dark blood and large clots, given 3 units prbc and 1 unit platelet to help with hemostasis (as still within 5 days after Plavix held), Hgb maintained between 8-9.6, BP stable. See significant event notes - 04/12 Colonoscopy done: Clotted blood was found in the rectum. A large area of ulcerated mucosa was found in the rectum with adherent clot. Oozing was present. The clot was not removed. To stop active bleeding, hemostatic spray was deployed. Two sprays were applied. There was no bleeding at the end of the procedure. Multiple small-mouthed diverticula were found in the sigmoid colon. Multiple polyps were seen in the colon throughout the procedure. Avoid fecal management devices or any enemas x 48 hours. Consider sucralfate enemas after 48 hours to aid in ulcer healing. Repeat colonoscopy non-urgently when patient is out of the hospital for polypectomy. Monitor, start clear diet, continue every 6 hrs CBC -04-15 Still with moderate amount of bleeding with dark blood and clots, Hgb however is stable, noticed slowed down with NPO, patient no appetite and prefer to be NPO for now and monitor 7-1 sips of clears 7-2, stable, stools brown- start clear liquids and monitor 7-3, tolerating clears , brown stools, wants to wait before advancing diet. Hgb stable 7-4 continue clears-monitor Assessment & Plan (04/18/2025 7:47 PM CDT): Patient with bloody liquid from rectum late afternoon 04/07. Following Hgb 10.4->10.1->9.9->9.4->9.6. CTA of abd-pelvis did not reveal active bleeding source but lots of stool and what appeared to be stool ball in rectum. Digital exam did not reach stool but large amount of clotted blood in rectum. Start miralax TID and try to clear stool. GI consult on board with no plan to scope. - 04/08 given tap water and mineral oil enema, but no BM - 04/09 check KUB: Stool is again noted within the rectum, huge but bloody bowel movement after hypaque enema, Hgb trended down to 6.7, receive 1 unit prbc - 04/10 Hgb 8.3, sigmoidoscopy Preparation of the colon was inadequate. Blood and clots seen in recto-sigmoid colon. Ulcerated, ooozing mucosa in the distal rectum. Treated with goldprobe. Hemostatic spray applied. Avoid AC and ASA for 2 days per GI. Avoid enema, continue PO bowel regimen - 04/11 continued rectal bleed, Hgb down to 6.6, given prbc, d/w GI and consulted CRS - limited options, gelfoam soaked with epi plug per rectum applied, no surgical candidate. Continue huge/large bleeding with dark blood and large clots, given 3 units prbc and 1 unit platelet to help with hemostasis (as still within 5 days after Plavix held), Hgb maintained between 8-9.6, BP stable. See significant event notes - 04/12 Colonoscopy done: Clotted blood was found in the rectum. A large area of ulcerated mucosa was found in the rectum with adherent clot. Oozing was present. The clot was not removed. To stop active bleeding, hemostatic spray was deployed. Two sprays were applied. There was no bleeding at the end of the procedure. Multiple small-mouthed diverticula were found in the sigmoid colon. Multiple polyps were seen in the colon throughout the procedure. Avoid fecal management devices or any enemas x 48 hours. Consider sucralfate enemas after 48 hours to aid in ulcer healing. Repeat colonoscopy non-urgently when patient is out of the hospital for polypectomy. Monitor, start clear diet, continue every 6 hrs CBC -30 Still with moderate amount of bleeding with dark blood and clots, Hgb however is stable, noticed slowed down with NPO, patient no appetite and prefer to be NPO for now and monitor 7-1 sips of clears 7-2, stable, stools brown- start clear liquids and monitor 7-3, tolerating clears , brown stools, wants to wait befoe advancing diet. Hgb stable Assessment & Plan (04/18/2025 12:22 AM CDT): Patient with bloody liquid from rectum late afternoon 04/07. Following Hgb 10.4->10.1->9.9->9.4->9.6. CTA of abd-pelvis did not reveal active bleeding source but lots of stool and what appeared to be stool ball in rectum. Digital exam did not reach stool but large amount of clotted blood in rectum. Start miralax TID and try to clear stool. GI consult on board with no plan to scope. - 04/08 given tap water and mineral oil enema, but no BM - 04/09 check KUB: Stool is again noted within the rectum, huge but bloody bowel movement after hypaque enema, Hgb trended down to 6.7, receive 1 unit prbc - 04/10 Hgb 8.3, sigmoidoscopy Preparation of the colon was inadequate. Blood and clots seen in recto-sigmoid colon. Ulcerated, ooozing mucosa in the distal rectum. Treated with goldprobe. Hemostatic spray applied. Avoid AC and ASA for 2 days per GI. Avoid enema, continue PO bowel regimen - 04/11 continued rectal bleed, Hgb down to 6.6, given prbc, d/w GI and consulted CRS - limited options, gelfoam soaked with epi plug per rectum applied, no surgical candidate. Continue huge/large bleeding with dark blood and large clots, given 3 units prbc and 1 unit platelet to help with hemostasis (as still within 5 days after Plavix held), Hgb maintained between 8-9.6, BP stable. See significant event notes - 04/12 Colonoscopy done: Clotted blood was found in the rectum. A large area of ulcerated mucosa was found in the rectum with adherent clot. Oozing was present. The clot was not removed. To stop active bleeding, hemostatic spray was deployed. Two sprays were applied. There was no bleeding at the end of the procedure. Multiple small-mouthed diverticula were found in the sigmoid colon. Multiple polyps were seen in the colon throughout the procedure. Avoid fecal management devices or any enemas x 48 hours. Consider sucralfate enemas after 48 hours to aid in ulcer healing. Repeat colonoscopy non-urgently when patient is out of the hospital for polypectomy. Monitor, start clear diet, continue every 6 hrs CBC - Still with moderate amount of bleeding with dark blood and clots, Hgb however is stable, noticed slowed down with NPO, patient no appetite and prefer to be NPO for now and monitor 7-2, stable, stools brown- start clear liquids and monitor Assessment & Plan (04/16/2025 1:42 PM CDT): Patient with bloody liquid from rectum late afternoon 04/07. Following Hgb 10.4->10.1->9.9->9.4->9.6. CTA of abd-pelvis did not reveal active bleeding source but lots of stool and what appeared to be stool ball in rectum. Digital exam did not reach stool but large amount of clotted blood in rectum. Start miralax TID and try to clear stool. GI consult on board with no plan to scope. - 04/08 given tap water and mineral oil enema, but no BM - 04/09 check KUB: Stool is again noted within the rectum, huge but bloody bowel movement after hypaque enema, Hgb trended down to 6.7, receive 1 unit prbc - 04/10 Hgb 8.3, sigmoidoscopy Preparation of the colon was inadequate. Blood and clots seen in recto-sigmoid colon. Ulcerated, ooozing mucosa in the distal rectum. Treated with goldprobe. Hemostatic spray applied. Avoid AC and ASA for 2 days per GI. Avoid enema, continue PO bowel regimen - 04/11 continued rectal bleed, Hgb down to 6.6, given prbc, d/w GI and consulted CRS - limited options, gelfoam soaked with epi plug per rectum applied, no surgical candidate. Continue huge/large bleeding with dark blood and large clots, given 3 units prbc and 1 unit platelet to help with hemostasis (as still within 5 days after Plavix held), Hgb maintained between 8-9.6, BP stable. See significant event notes - 04/12 Colonoscopy done: Clotted blood was found in the rectum. A large area of ulcerated mucosa was found in the rectum with adherent clot. Oozing was present. The clot was not removed. To stop active bleeding, hemostatic spray was deployed. Two sprays were applied. There was no bleeding at the end of the procedure. Multiple small-mouthed diverticula were found in the sigmoid colon. Multiple polyps were seen in the colon throughout the procedure. Avoid fecal management devices or any enemas x 48 hours. Consider sucralfate enemas after 48 hours to aid in ulcer healing. Repeat colonoscopy non-urgently when patient is out of the hospital for polypectomy. Monitor, start clear diet, continue every 6 hrs CBC - Still with moderate amount of bleeding with dark blood and clots, Hgb however is stable, noticed slowed down with NPO, patient no appetite and prefer to be NPO for now and monitor Assessment & Plan (04/15/2025 8:16 AM CDT): Patient with bloody liquid from rectum late afternoon 04/07. Following Hgb 10.4->10.1->9.9->9.4->9.6. CTA of abd-pelvis did not reveal active bleeding source but lots of stool and what appeared to be stool ball in rectum. Digital exam did not reach stool but large amount of clotted blood in rectum. Start miralax TID and try to clear stool. GI consult on board with no plan to scope. - 04/08 given tap water and mineral oil enema, but no BM - 04/09 check KUB: Stool is again noted within the rectum, huge but bloody bowel movement after hypaque enema, Hgb trended down to 6.7, receive 1 unit prbc - 04/10 Hgb 8.3, sigmoidoscopy Preparation of the colon was inadequate. Blood and clots seen in recto-sigmoid colon. Ulcerated, ooozing mucosa in the distal rectum. Treated with goldprobe. Hemostatic spray applied. Avoid AC and ASA for 2 days per GI. Avoid enema, continue PO bowel regimen - 04/11 continued rectal bleed, Hgb down to 6.6, given prbc, d/w GI and consulted CRS - limited options, gelfoam soaked with epi plug per rectum applied, no surgical candidate. Continue huge/large bleeding with dark blood and large clots, given 3 units prbc and 1 unit platelet to help with hemostasis (as still within 5 days after Plavix held), Hgb maintained between 8-9.6, BP stable. See significant event notes - 04/12 Colonoscopy done: Clotted blood was found in the rectum. A large area of ulcerated mucosa was found in the rectum with adherent clot. Oozing was present. The clot was not removed. To stop active bleeding, hemostatic spray was deployed. Two sprays were applied. There was no bleeding at the end of the procedure. Multiple small-mouthed diverticula were found in the sigmoid colon. Multiple polyps were seen in the colon throughout the procedure. Avoid fecal management devices or any enemas x 48 hours. Consider sucralfate enemas after 48 hours to aid in ulcer healing. Repeat colonoscopy non-urgently when patient is out of the hospital for polypectomy. Monitor, start clear diet, continue every 6 hrs CBC - Still with moderate amount of bleeding with dark blood and clots, Hgb however is stable, noticed slowed down with NPO, patient no appetite and prefer to be NPO for now and monitor Assessment & Plan (04/14/2025 11:36 AM CDT): Patient with bloody liquid from rectum late afternoon 04/07. Following Hgb 10.4->10.1->9.9->9.4->9.6. CTA of abd-pelvis did not reveal active bleeding source but lots of stool and what appeared to be stool ball in rectum. Digital exam did not reach stool but large amount of clotted blood in rectum. Start miralax TID and try to clear stool. GI consult on board with no plan to scope. - 04/08 given tap water and mineral oil enema, but no BM - 04/09 check KUB: Stool is again noted within the rectum, huge but bloody bowel movement after hypaque enema, Hgb trended down to 6.7, receive 1 unit prbc - 04/10 Hgb 8.3, sigmoidoscopy Preparation of the colon was inadequate. Blood and clots seen in recto-sigmoid colon. Ulcerated, ooozing mucosa in the distal rectum. Treated with goldprobe. Hemostatic spray applied. Avoid AC and ASA for 2 days per GI. Avoid enema, continue PO bowel regimen - 04/11 continued rectal bleed, Hgb down to 6.6, given prbc, d/w GI and consulted CRS - limited options, gelfoam soaked with epi plug per rectum applied, no surgical candidate. Continue huge/large bleeding with dark blood and large clots, given 3 units prbc and 1 unit platelet to help with hemostasis (as still within 5 days after Plavix held), Hgb maintained between 8-9.6, BP stable. See significant event notes - 04/12 Colonoscopy done: Clotted blood was found in the rectum. A large area of ulcerated mucosa was found in the rectum with adherent clot. Oozing was present. The clot was not removed. To stop active bleeding, hemostatic spray was deployed. Two sprays were applied. There was no bleeding at the end of the procedure. Multiple small-mouthed diverticula were found in the sigmoid colon. Multiple polyps were seen in the colon throughout the procedure. Avoid fecal management devices or any enemas x 48 hours. Consider sucralfate enemas after 48 hours to aid in ulcer healing. Repeat colonoscopy non-urgently when patient is out of the hospital for polypectomy. Monitor, start clear diet, continue every 6 hrs CBC - Still with moderate amount of bleeding with dark blood and clots, Hgb however is stable, noticed slowed down with NPO, patient no appetite and prefer to be NPO for now and monitor Assessment & Plan (04/13/2025 2:40 PM CDT): Patient with bloody liquid from rectum late afternoon 04/07. Following Hgb 10.4->10.1->9.9->9.4->9.6. CTA of abd-pelvis did not reveal active bleeding source but lots of stool and what appeared to be stool ball in rectum. Digital exam did not reach stool but large amount of clotted blood in rectum. Start miralax TID and try to clear stool. GI consult on board with no plan to scope. - 04/08 given tap water and mineral oil enema, but no BM - 04/09 check KUB: Stool is again noted within the rectum, huge but bloody bowel movement after hypaque enema, Hgb trended down to 6.7, receive 1 unit prbc - 04/10 Hgb 8.3, sigmoidoscopy Preparation of the colon was inadequate. Blood and clots seen in recto-sigmoid colon. Ulcerated, ooozing mucosa in the distal rectum. Treated with goldprobe. Hemostatic spray applied. Avoid AC and ASA for 2 days per GI. Avoid enema, continue PO bowel regimen - 04/11 continued rectal bleed, Hgb down to 6.6, given prbc, d/w GI and consulted CRS - limited options, gelfoam soaked with epi plug per rectum applied, no surgical candidate. Continue huge/large bleeding with dark blood and large clots, given 3 units prbc and 1 unit platelet to help with hemostasis (as still within 5 days after Plavix held), Hgb maintained between 8-9.6, BP stable. See significant event notes - 04/12 Colonoscopy done: Clotted blood was found in the rectum. A large area of ulcerated mucosa was found in the rectum with adherent clot. Oozing was present. The clot was not removed. To stop active bleeding, hemostatic spray was deployed. Two sprays were applied. There was no bleeding at the end of the procedure. Multiple small-mouthed diverticula were found in the sigmoid colon. Multiple polyps were seen in the colon throughout the procedure. Avoid fecal management devices or any enemas x 48 hours. Consider sucralfate enemas after 48 hours to aid in ulcer healing. Repeat colonoscopy non-urgently when patient is out of the hospital for polypectomy. Monitor, start clear diet, continue every 6 hrs CBC Assessment & Plan (04/12/2025 12:46 PM CDT): Patient with bloody liquid from rectum late afternoon 04/07. Following Hgb 10.4->10.1->9.9->9.4->9.6. CTA of abd-pelvis did not reveal active bleeding source but lots of stool and what appeared to be stool ball in rectum. Digital exam did not reach stool but large amount of clotted blood in rectum. Start miralax TID and try to clear stool. GI consult on board with no plan to scope. - 04/08 given tap water and mineral oil enema, but no BM - 04/09 check KUB: Stool is again noted within the rectum, huge but bloody bowel movement after hypaque enema, Hgb trended down to 6.7, receive 1 unit prbc - 04/10 Hgb 8.3, sigmoidoscopy Preparation of the colon was inadequate. Blood and clots seen in recto-sigmoid colon. Ulcerated, ooozing mucosa in the distal rectum. Treated with goldprobe. Hemostatic spray applied. Avoid AC and ASA for 2 days per GI. Avoid enema, continue PO bowel regimen - 04/11 continued rectal bleed, Hgb down to 6.6, given prbc, d/w GI and consulted CRS - limited options, gelfoam soaked with epi plug per rectum applied, no surgical candidate. Continue huge/large bleeding with dark blood and large clots, given 3 units prbc and 1 unit platelet to help with hemostasis (as still within 5 days after Plavix held), Hgb maintained between 8-9.6, BP stable. See significant event notes - 04/12 Colonoscopy done: Clotted blood was found in the rectum. A large area of ulcerated mucosa was found in the rectum with adherent clot. Oozing was present. The clot was not removed. To stop active bleeding, hemostatic spray was deployed. Two sprays were applied. There was no bleeding at the end of the procedure. Multiple small-mouthed diverticula were found in the sigmoid colon. Multiple polyps were seen in the colon throughout the procedure. Avoid fecal management devices or any enemas x 48 hours. Consider sucralfate enemas after 48 hours to aid in ulcer healing. Repeat colonoscopy non-urgently when patient is out of the hospital for polypectomy. Monitor, start clear diet, continue every 6 hors CBC Assessment & Plan (04/11/2025 11:36 AM CDT): Patient with bloody liquid from rectum late afternoon 04/07. Following Hgb 10.4->10.1->9.9->9.4->9.6. CTA of abd-pelvis did not reveal active bleeding source but lots of stool and what appeared to be stool ball in rectum. Digital exam did not reach stool but large amount of clotted blood in rectum. Start miralax TID and try to clear stool. GI consult on board with no plan to scope. - 04/08 given tap water and mineral oil enema, but no BM - 04/09 check KUB: Stool is again noted within the rectum, huge but bloody bowel movement after hypaque enema, Hgb trended down to 6.7, receive 1 unit prbc - 04/10 Hgb 8.3, sigmoidoscopy Preparation of the colon was inadequate. Blood and clots seen in recto-sigmoid colon. Ulcerated, ooozing mucosa in the distal rectum. Treated with goldprobe. Hemostatic spray applied. Avoid AC and ASA for 2 days per GI. Avoid enema, continue PO bowel regimen - 04/11 continued rectal bleed, Hgb down to 6.6, given prbc, d/w GI and consulted CRS - limited options, will try tampon packing, no surgical candidate, if continue bleed GI will rescope Assessment & Plan (04/10/2025 4:18 PM CDT): Patient with bloody liquid from rectum late afternoon 04/07. Following Hgb 10.4->10.1->9.9->9.4->9.6. CTA of abd-pelvis did not reveal active bleeding source but lots of stool and what appeared to be stool ball in rectum. Digital exam did not reach stool but large amount of clotted blood in rectum. Start miralax TID and try to clear stool. GI consult on board with no plan to scope. - 04/08 given tap water and mineral oil enema, but no BM - 04/09 check KUB: Stool is again noted within the rectum, huge but bloody bowel movement after hypaque enema, Hgb trended down to 6.7, receive 1 unit prbc - 04/10 Hgb 8.3, sigmoidoscopy Preparation of the colon was inadequate. Blood and clots seen in recto-sigmoid colon. Ulcerated, ooozing mucosa in the distal rectum. Treated with goldprobe. Hemostatic spray applied. Avoid AC and ASA for 2 days per GI. Avoid enema, continue PO bowel regimen Assessment & Plan (04/09/2025 12:20 PM CDT): Patient with bloody liquid from rectum late afternoon 04/07. Following Hgb 10.4->10.1->9.9->9.4->9.6. CTA of abd-pelvis did not reveal active bleeding source but lots of stool and what appeared to be stool ball in rectum. Digital exam did not reach stool but large amount of clotted blood in rectum. Start miralax TID and try to clear stool. GI consult on board with no plan to scope. - 04/08 given tap water and mineral oil enema, but no BM - 04/09 check KUB, give another mineral oil enema, may need to do hypaque enema Assessment & Plan (04/08/2025 12:13 PM CDT): Patient with bloody liquid from rectum late afternoon 04/07. Following Hgb 10.4->10.1->9.9->9.4->9.6. CTA of abd-pelvis did not reveal active bleeding source but lots of stool and what appeared to be stool ball in rectum. Digital exam did not reach stool but large amount of clotted blood in rectum. Start miralax TID and try to clear stool. GI consult on board with no plan to scope today. UTI (urinary tract infection) 04/07/2025 Assessment & Plan (05/10/2025 7:59 AM CDT): Spiked fever to 101.1 on 05/05 also with some tachycardia to 100, and elevated RR. No new o2 requirement and normotensive. Labs without leukocytosis or lactate elevation but does show mildly elevated tBili and AST which she has had previously. Inflammatory markers elevated. Has been having diarrhea, and dysuria for several days. Ddx includes bacteremia vs UTI vs abd infection. Pt with anaphylaxsis allergy to cefuroxime. Previous UTI with UCx with Ecoli-tx with bactrim starting 04/07 - 04/09, dc with hyperkalemia, [place] (04/09-04/14) . Previously susceptible to macrobid. DDx UTI vs PNA vs cholecystitis vs GI infection vs other -BCx x2 NGTD -RPP negative -CXR similar to previous without infectious signs -UA sent - negative. Patient believes burning is from frequent wiping from BM's -c diff negative and stool culture pending from 05/06 Assessment & Plan (05/09/2025 7:59 AM CDT): Spiked fever to 101.1 on 05/05 also with some tachycardia to 100, and elevated RR. No new o2 requirement and normotensive. Labs without leukocytosis or lactate elevation but does show mildly elevated tBili and AST which she has had previously. Inflammatory markers elevated. Has been having diarrhea, and dysuria for several days. Ddx includes bacteremia vs UTI vs abd infection. Pt with anaphylaxsis allergy to cefuroxime. Previous UTI with UCx with Ecoli-tx with bactrim starting 04/07 - 04/09, dc with hyperkalemia, [place] (04/09-04/14) . Previously susceptible to macrobid. DDx UTI vs PNA vs cholecystitis vs GI infection vs other -BCx x2 NGTD -RPP negative -CXR similar to previous without infectious signs -UA sent - negative. Patient believes burning is from frequent wiping from BM's -c diff negative and stool culture pending from 05/06 Assessment & Plan (05/08/2025 7:40 AM CDT): Spiked fever to 101.1 on 05/05 also with some tachycardia to 100, and elevated RR. No new o2 requirement and normotensive. Labs without leukocytosis or lactate elevation but does show mildly elevated tBili and AST which she has had previously. Inflammatory markers elevated. Has been having diarrhea, and dysuria for several days. Ddx includes bacteremia vs UTI vs abd infection. Pt with anaphylaxsis allergy to cefuroxime. Previous UTI with UCx with Ecoli-tx with bactrim starting 04/07 - 04/09, dc with hyperkalemia, [place] (04/09-04/14) . Previously susceptible to macrobid. DDx UTI vs PNA vs cholecystitis vs GI infection vs other -BCx x2 NGTD -RPP negative -CXR similar to previous without infectious signs -UA sent - negative. Patient believes burning is from frequent wiping from BM's -c diff negative and stool culture pending from 05/06 Assessment & Plan (05/07/2025 1:58 PM CDT): Spiked fever to 101.1 on 05/05 also with some tachycardia to 100, and elevated RR. No new o2 requirement and normotensive. Labs without leukocytosis or lactate elevation but does show mildly elevated tBili and AST which she has had previously. Inflammatory markers elevated. Has been having diarrhea, and dysuria for several days. Ddx includes bacteremia vs UTI vs abd infection. Pt with anaphylaxsis allergy to cefuroxime. Previous UTI with UCx with Ecoli-tx with bactrim starting 04/07 - 04/09, dc with hyperkalemia, [place] (04/09-04/14) . Previously susceptible to macrobid. -BCx x2 NGTD -RPP negative -CXR similar to previous without infectious signs -UA sent - negative. Patient believes burning is from frequent wiping from BM's -c diff negative and stool culture pending Assessment & Plan (05/06/2025 4:49 PM CDT): Spiked fever to 101.1 on 05/05 also with some tachycardia to 100, and elevated RR. No new o2 requirement and normotensive. Labs without leukocytosis or lactate elevation but does show mildly elevated tBili and AST which she has had previously. Inflammatory markers elevated. Has been having diarrhea, and dysuria for several days. Ddx includes bacteremia vs UTI vs abd infection. Pt with anaphylaxsis allergy to cefuroxime. Previous UTI with UCx with Ecoli-tx with bactrim starting 04/07 - 04/09, dc with hyperkalemia, [place] (04/09-04/14) . Previously susceptible to macrobid. -BCx x2 NGTD -RPP negative -CXR similar to previous without infectious signs -UA sent, follow up culture, possibly start macrobid if infectious -c diff and stool culture ordered Assessment & Plan (05/04/2025 10:32 AM CDT): RESOLVED WBC=13K UCx with Ecoli-tx with bactrim starting 04/07 - 04/09, dc with hyperkalemia, [place] (04/09-04/14) Assessment & Plan (05/03/2025 1:22 PM CDT): RESOLVED WBC=13K UCx with Ecoli-tx with bactrim starting 04/07 - 04/09, dc with hyperkalemia, [place] (04/09-04/14) Assessment & Plan (05/02/2025 11:01 AM CDT): RESOLVED WBC=13K UCx with Ecoli-tx with bactrim starting 04/07 - 04/09, dc with hyperkalemia, [place] (04/09-04/14) Assessment & Plan (04/30/2025 5:18 PM CDT): RESOLVED WBC=13K UCx with Ecoli-tx with bactrim starting 04/07 - 04/09, dc with hyperkalemia, [place] (04/09-04/14) Assessment & Plan (04/29/2025 10:33 AM CDT): WBC=13K UCx with Ecoli-tx with bactrim starting 04/07 - 04/09, dc with hyperkalemia, [place] (04/09-04/14) Assessment & Plan (04/28/2025 11:48 AM CDT): WBC=13K UCx with Ecoli-tx with bactrim starting 04/07 - 04/09, dc with hyperkalemia, [place] (04/09-04/14) Assessment & Plan (04/27/2025 9:58 AM CDT): WBC=13K UCx with Ecoli-tx with bactrim starting 04/07 - 04/09, dc with hyperkalemia, [place] (04/09-04/14) Assessment & Plan (04/26/2025 10:07 AM CDT): WBC=13K UCx with Ecoli-tx with bactrim starting 04/07 - 04/09, dc with hyperkalemia, [place] (04/09-04/14) Assessment & Plan (04/25/2025 10:43 AM CDT): WBC=13K UCx with Ecoli-tx with bactrim starting 04/07 - 04/09, dc with hyperkalemia, [place] (04/09-04/14) Assessment & Plan (04/24/2025 11:01 AM CDT): WBC=13K UCx with Ecoli-tx with bactrim starting 04/07 - 04/09, dc with hyperkalemia, [place] (04/09-04/14) Assessment & Plan (04/23/2025 2:21 PM CDT): WBC=13K UCx with Ecoli-tx with bactrim starting 04/07 - 04/09, dc with hyperkalemia, [place] (04/09-04/14) Assessment & Plan (04/23/2025 6:07 AM CDT): WBC=13K UCx with Ecoli-tx with bactrim starting 04/07 - 04/09, dc with hyperkalemia, [place] (04/09-04/14) Assessment & Plan (04/21/2025 9:58 AM CDT): WBC=13K UCx with Ecoli-tx with bactrim starting 04/07 - 04/09, dc with hyperkalemia, [place] (04/09-04/14) Assessment & Plan (04/20/2025 2:26 PM CDT): WBC=13K UCx with Ecoli-tx with bactrim starting 04/07 - 04/09, dc with hyperkalemia, [place] (04/09-04/14) Assessment & Plan (04/19/2025 12:35 PM CDT): WBC=13K UCx with Ecoli-tx with bactrim starting 04/07 - 04/09, dc with hyperkalemia, [place] (04/09-04/14) Assessment & Plan (04/18/2025 4:09 PM CDT): WBC=13K UCx with Ecoli-tx with bactrim starting 04/07 - 04/09, dc with hyperkalemia, [place] (04/09-04/14) Assessment & Plan (04/17/2025 4:37 PM CDT): WBC=13K UCx with Ecoli-tx with bactrim starting 04/07 - 04/09, dc with hyperkalemia, [place] (04/09-04/14) Assessment & Plan (04/16/2025 1:42 PM CDT): WBC=13K UCx with Ecoli-tx with bactrim starting 04/07 - 04/09, dc with hyperkalemia, [place] (04/09-04/14) Assessment & Plan (04/15/2025 12:00 PM CDT): WBC=13K UCx with Ecoli-tx with bactrim starting 04/07 - 04/09, dc with hyperkalemia, [place] (04/09-04/14) Assessment & Plan (04/14/2025 8:46 AM CDT): WBC=13K UCx with Ecoli-tx with bactrim starting 04/07 - 04/09, dc with hyperkalemia, [place] (04/09-) Assessment & Plan (04/13/2025 9:00 AM CDT): WBC=13K UCx with Ecoli-tx with bactrim starting 04/07 - 04/09, dc with hyperkalemia, [place] (04/09-) Assessment & Plan (04/12/2025 12:46 PM CDT): WBC=13K UCx with Ecoli-tx with bactrim starting 04/07 - 04/09, dc with hyperkalemia, [place] (04/09-) Assessment & Plan (04/11/2025 11:36 AM CDT): WBC=13K UCx with Ecoli-tx with bactrim starting 04/07 - 04/09, dc with hyperkalemia, [place] (04/09-) Assessment & Plan (04/10/2025 4:20 PM CDT): WBC=13K UCx with Ecoli-tx with bactrim starting 04/07 - 04/09, dc with hyperkalemia, [place] (04/09-) Assessment & Plan (04/09/2025 9:12 AM CDT): WBC=13K UCx with Ecoli-tx with bactrim starting 04/07 Assessment & Plan (04/08/2025 12:13 PM CDT): WBC=13K UCx with Ecoli-tx with bactrim starting 04/07 Assessment & Plan (04/07/2025 11:34 AM CDT): WBC=13K UCx with Ecoli-tx with bactrim starting 04/07 CAD (coronary artery disease) 03/31/2025 Assessment & Plan (05/10/2025 7:59 AM CDT): STABLE, monitoring S/p PCI to mid diag 07/23/2024 and ostial RCA 09/10/2024 -Hold ASA/Plavix iso recent bleed. Resumed metoprolol, imdur 04/02, resume plavix /18-on hold 04/08 with GIB -resumed Imdur 7-4 -see HTN for other meds -DC losartan and start ECASA 81mg daily 04/25. Assessment & Plan (05/09/2025 7:59 AM CDT): STABLE, monitoring S/p PCI to mid diag 07/23/2024 and ostial RCA 09/10/2024 -Hold ASA/Plavix iso recent bleed. Resumed metoprolol, imdur 6/17, resume plavix /18-on hold 04/08 with GIB -resumed Imdur 7-4 -see HTN for other meds -DC losartan and start ECASA 81mg daily 04/25. Assessment & Plan (05/08/2025 7:40 AM CDT): STABLE, monitoring S/p PCI to mid diag 07/23/2024 and ostial RCA 09/10/2024 -Hold ASA/Plavix iso recent bleed. Resumed metoprolol, imdur 6/17, resume plavix /18-on hold 04/08 with GIB -resumed Imdur 7-4 -see HTN for other meds -DC losartan and start ECASA 81mg daily 04/25. Assessment & Plan (05/07/2025 7:31 AM CDT): STABLE, monitoring S/p PCI to mid diag 07/23/2024 and ostial RCA 09/10/2024 -Hold ASA/Plavix iso recent bleed. Resumed metoprolol, imdur 6/17, resume plavix /18-on hold 04/08 with GIB -resumed Imdur 7-4 -see HTN for other meds -DC losartan and start ECASA 81mg daily 04/25. Assessment & Plan (05/06/2025 8:47 AM CDT): STABLE, monitoring S/p PCI to mid diag 07/23/2024 and ostial RCA 09/10/2024 -Hold ASA/Plavix iso recent bleed. Resumed metoprolol, imdur 6/17, resume plavix /18-on hold 04/08 with GIB -resumed Imdur 7-4 -see HTN for other meds -DC losartan and start ECASA 81mg daily 04/25. Assessment & Plan (05/05/2025 3:50 PM CDT): STABLE, monitoring S/p PCI to mid diag 07/23/2024 and ostial RCA 09/10/2024 -Hold ASA/Plavix iso recent bleed. Resumed metoprolol, imdur 6/17, resume plavix /18-on hold 04/08 with GIB -resumed Imdur 7-4 -see HTN for other meds -DC losartan and start ECASA 81mg daily 04/25. Assessment & Plan (05/04/2025 10:31 AM CDT): S/p PCI to mid diag 07/23/2024 and ostial RCA 09/10/2024 -Hold ASA/Plavix iso recent bleed. Resumed metoprolol, imdur 6/17, resume plavix /18-on hold 04/08 with GIB -resumed Imdur 7-4 -see HTN for other meds -DC losartan and start ECASA 81mg daily 04/25. Assessment & Plan (05/03/2025 1:22 PM CDT): S/p PCI to mid diag 07/23/2024 and ostial RCA 09/10/2024 -Hold ASA/Plavix iso recent bleed. Resumed metoprolol, imdur 6/17, resume plavix /18-on hold 04/08 with GIB -resumed Imdur 7-4 -see HTN for other meds -DC losartan and start ECASA 81mg daily 04/25. Assessment & Plan (05/02/2025 11:01 AM CDT): S/p PCI to mid diag 07/23/2024 and ostial RCA 09/10/2024 -Hold ASA/Plavix iso recent bleed. Resumed metoprolol, imdur 6/17, resume plavix 6/18-on hold 04/08 with GIB -resumed Imdur 7-4 -see HTN for other meds -DC losartan and start ECASA 81mg daily 04/25. Assessment & Plan (04/30/2025 5:18 PM CDT): S/p PCI to mid diag 07/23/2024 and ostial RCA 09/10/2024 -Hold ASA/Plavix iso recent bleed. Resumed metoprolol, imdur 6/17, resume plavix 6/18-on hold 04/08 with GIB -resumed Imdur 7-4 -see HTN for other meds -DC losartan and start ECASA 81mg daily 04/25. Assessment & Plan (04/29/2025 10:33 AM CDT): S/p PCI to mid diag 07/23/2024 and ostial RCA 09/10/2024 -Hold ASA/Plavix iso recent bleed. Resume metoprolol, imdur 6/17, resume plavix 6/18-on hold 04/08 with GIB -resume Imdur 7-4 -see HTN for other meds -DC losartan and start ECASA 81mg daily 04/25. Assessment & Plan (04/28/2025 11:48 AM CDT): S/p PCI to mid diag 07/23/2024 and ostial RCA 09/10/2024 -Hold ASA/Plavix iso recent bleed. Resume metoprolol, imdur 6/17, resume plavix 6/18-on hold 04/08 with GIB -resume Imdur 7-4 -see HTN for other meds Hold losartan and start ECASA 81mg daily 04/25. Assessment & Plan (04/27/2025 9:58 AM CDT): S/p PCI to mid diag 07/23/2024 and ostial RCA 09/10/2024 -Hold ASA/Plavix iso recent bleed. Resume metoprolol, imdur 6/17, resume plavix 6/18-on hold 04/08 with GIB -resume Imdur 7-4 -see HTN for other meds Hold losartan and start ECASA 81mg daily 04/25. Assessment & Plan (04/26/2025 10:07 AM CDT): S/p PCI to mid diag 07/23/2024 and ostial RCA 09/10/2024 -Hold ASA/Plavix iso recent bleed. Resume metoprolol, imdur 6/17, resume plavix 6/18-on hold 04/08 with GIB -resume Imdur 7-4 -see HTN for other meds Hold losartan and start ECASA 81mg daily 04/25. Assessment & Plan (04/25/2025 10:43 AM CDT): S/p PCI to mid diag 07/23/2024 and ostial RCA 09/10/2024 -Hold ASA/Plavix iso recent bleed. Resume metoprolol, imdur 6/17, resume plavix 6/18-on hold 04/08 with GIB -resume Imdur 7-4 -see HTN for other meds Hold losartan and start ECASA 81mg daily 04/25. Assessment & Plan (04/24/2025 11:01 AM CDT): S/p PCI to mid diag 07/23/2024 and ostial RCA 09/10/2024 -Hold ASA/Plavix iso recent bleed. Resume metoprolol, imdur 6/17, resume plavix 6/18-on hold 04/08 with GIB -resume Imdur 7-4 -see HTN for other meds Assessment & Plan (04/23/2025 2:21 PM CDT): S/p PCI to mid diag 07/23/2024 and ostial RCA 09/10/2024 -Hold ASA/Plavix iso recent bleed. Resume metoprolol, imdur 6/17, resume plavix 6/18-on hold 04/08 with GIB -resume Imdur 7-4 -see HTN for other meds Assessment & Plan (04/23/2025 6:07 AM CDT): S/p PCI to mid diag 07/23/2024 and ostial RCA 09/10/2024 -Hold ASA/Plavix iso recent bleed. Resume metoprolol, imdur 6/17, resume plavix 6/18-on hold 04/08 with GIB -resume Imdur 7-4 -see HTN for other meds Assessment & Plan (04/21/2025 9:58 AM CDT): S/p PCI to mid diag 07/23/2024 and ostial RCA 09/10/2024 -Hold ASA/Plavix iso recent bleed. Resume metoprolol, imdur 6/17, resume plavix 6/18-on hold 04/08 with GIB -resume Imdur 7-4 -see HTN for other meds Assessment & Plan (04/20/2025 2:26 PM CDT): S/p PCI to mid diag 07/23/2024 and ostial RCA 09/10/2024 -Hold ASA/Plavix iso recent bleed. Resume metoprolol, imdur 6/17, resume plavix 6/18-on hold 04/08 with GIB -resume Imdur 7-4 -see HTN for other meds Assessment & Plan (04/19/2025 8:18 PM CDT): S/p PCI to mid diag 07/23/2024 and ostial RCA 09/10/2024 -Hold ASA/Plavix iso recent bleed. Resume metoprolol, imdur 6/17, resume plavix 6/18-on hold 04/08 with GIB -resume Imdur 7-4 -see HTN for other meds Assessment & Plan (04/18/2025 4:09 PM CDT): S/p PCI to mid diag 07/23/2024 and ostial RCA 09/10/2024 -Hold ASA/Plavix iso recent bleed. Resume metoprolol, imdur 6/17, resume plavix 6/18-on hold 04/08 with GIB -see HTN for other meds Assessment & Plan (04/17/2025 4:37 PM CDT): S/p PCI to mid diag 07/23/2024 and ostial RCA 09/10/2024 -Hold ASA/Plavix iso recent bleed. Resume metoprolol, imdur 6/17, resume plavix 6/18-on hold 04/08 with GIB -see HTN for other meds Assessment & Plan (04/16/2025 1:42 PM CDT): S/p PCI to mid diag 07/23/2024 and ostial RCA 09/10/2024 -Hold ASA/Plavix iso recent bleed. Resume metoprolol, imdur 6/17, resume plavix 6/18-on hold 04/08 with GIB -see HTN for other meds Assessment & Plan (04/15/2025 8:16 AM CDT): S/p PCI to mid diag 07/23/2024 and ostial RCA 09/10/2024 -Hold ASA/Plavix iso recent bleed. Resume metoprolol, imdur 6/17, resume plavix 6/18-on hold 04/08 with GIB -see HTN for other meds Assessment & Plan (04/14/2025 11:36 AM CDT): S/p PCI to mid diag 07/23/2024 and ostial RCA 09/10/2024 -Hold ASA/Plavix iso recent bleed. Resume metoprolol, imdur 6/17, resume plavix 6/18-on hold 04/08 with GIB -see HTN for other meds Assessment & Plan (04/13/2025 9:00 AM CDT): S/p PCI to mid diag 07/23/2024 and ostial RCA 09/10/2024 -Hold ASA/Plavix iso recent bleed. Resume metoprolol, imdur 6/17, resume plavix 6/18-on hold 04/08 with GIB Assessment & Plan (04/12/2025 12:46 PM CDT): S/p PCI to mid diag 07/23/2024 and ostial RCA 09/10/2024 -Hold ASA/Plavix iso recent bleed. Resume metoprolol, imdur 6/17, resume plavix 6/18-on hold 04/08 with GIB Assessment & Plan (04/11/2025 11:36 AM CDT): S/p PCI to mid diag 07/23/2024 and ostial RCA 09/10/2024 -Hold ASA/Plavix iso recent bleed. Resume metoprolol, imdur 6/17, resume plavix 6/18-on hold 04/08 with GIB Assessment & Plan (04/10/2025 4:18 PM CDT): S/p PCI to mid diag 07/23/2024 and ostial RCA 09/10/2024 -Hold ASA/Plavix iso recent bleed. Resume metoprolol, imdur 6/17, resume plavix 6/18-on hold 04/08 with GIB Assessment & Plan (04/09/2025 9:12 AM CDT): S/p PCI to mid diag 07/23/2024 and ostial RCA 09/10/2024 -Hold ASA/Plavix iso recent bleed. Resume metoprolol, imdur 6/17, resume plavix 6/18-on hold 04/08 with GIB Assessment & Plan (04/08/2025 12:13 PM CDT): S/p PCI to mid diag 07/23/2024 and ostial RCA 09/10/2024 -Hold ASA/Plavix iso recent bleed. Resume metoprolol, imdur 6/17, resume plavix 6/18-on hold 04/08 with GIB Assessment & Plan (04/07/2025 11:34 AM CDT): S/p PCI to mid diag 07/23/2024 and ostial RCA 09/10/2024 -Hold ASA/Plavix iso recent bleed. Resume metoprolol, imdur 6/17, resume plavix 6/18 Assessment & Plan (04/06/2025 10:54 AM CDT): S/p PCI to mid diag 07/23/2024 and ostial RCA 09/10/2024 -Hold ASA/Plavix iso recent bleed. Resume metoprolol, imdur 6/17, resume plavix 6/18 Assessment & Plan (04/05/2025 12:28 PM CDT): S/p PCI to mid diag 07/23/2024 and ostial RCA 09/10/2024 -Hold ASA/Plavix iso recent bleed. Resume metoprolol, imdur 6/17, resume plavix 6/18 Assessment & Plan (04/04/2025 11:26 AM CDT): S/p PCI to mid diag 07/23/2024 and ostial RCA 09/10/2024 -Hold ASA/Plavix iso recent bleed. Resume metoprolol, imdur 6/17, resume plavix 6/18 Assessment & Plan (04/03/2025 11:53 AM CDT): S/p PCI to mid diag 07/23/2024 and ostial RCA 09/10/2024 -Hold ASA/Plavix iso recent bleed. Resume metoprolol, imdur 6/17, resume plavix 6/18 Assessment & Plan (04/02/2025 10:42 AM CDT): S/p PCI to mid diag 07/23/2024 and ostial RCA 09/10/2024 -Hold ASA/Plavix iso recent bleed. Resume metoprolol, imdur 6/17 Assessment & Plan (04/01/2025 7:24 AM CDT): S/p PCI to mid diag 07/23/2024 and ostial RCA 09/10/2024 -Hold ASA/Plavix iso recent bleed Assessment & Plan (03/31/2025 2:26 PM CDT): S/p PCI to mid diag 07/23/2024 and ostial RCA 09/10/2024 -Hold ASA/Plavix iso recent bleed Pneumonia 03/31/2025 Assessment & Plan (05/04/2025 10:31 AM CDT): Concern for PNA on CT chest after PEA arrest. In setting of elevated lactate 03/27 overnight favor treatment at this time. 03/27 tracheal aspirate grew Klebsiella pneumonia and CItrobacter - Vanc + Cefe (03/26) -> Unasyn (03/27-) -> broadened to vanc + azithro x 3d + zosyn 03/27 post PEA. S/p Cipro 04/09-04/10, Meropenem 04/10-04/14 Assessment & Plan (05/03/2025 1:22 PM CDT): Concern for PNA on CT chest after PEA arrest. In setting of elevated lactate 03/27 overnight favor treatment at this time. 03/27 tracheal aspirate grew Klebsiella pneumonia and CItrobacter - Vanc + Cefe (03/26) -> Unasyn (03/27-) -> broadened to vanc + azithro x 3d + zosyn 03/27 post PEA. S/p Cipro 04/09-04/10, Meropenem 04/10-04/14 Assessment & Plan (05/02/2025 11:01 AM CDT): Concern for PNA on CT chest after PEA arrest. In setting of elevated lactate 03/27 overnight favor treatment at this time. 03/27 tracheal aspirate grew Klebsiella pneumonia and CItrobacter - Vanc + Cefe (03/26) -> Unasyn (03/27-) -> broadened to vanc + azithro x 3d + zosyn 03/27 post PEA - Ciprofloxicin 750 BID EOT 04/02 Assessment & Plan (04/30/2025 5:18 PM CDT): Concern for PNA on CT chest after PEA arrest. In setting of elevated lactate 03/27 overnight favor treatment at this time. 03/27 tracheal aspirate grew Klebsiella pneumonia and CItrobacter - Vanc + Cefe (03/26) -> Unasyn (03/27-) -> broadened to vanc + azithro x 3d + zosyn 03/27 post PEA - Ciprofloxicin 750 BID EOT 04/02 Assessment & Plan (04/29/2025 10:33 AM CDT): Concern for PNA on CT chest after PEA arrest. In setting of elevated lactate 03/27 overnight favor treatment at this time. 03/27 tracheal aspirate grew Klebsiella pneumonia and CItrobacter - Vanc + Cefe (03/26) -> Unasyn (03/27-) -> broadened to vanc + azithro x 3d + zosyn 03/27 post PEA - Ciprofloxicin 750 BID EOT 04/02 Assessment & Plan (04/28/2025 11:48 AM CDT): Concern for PNA on CT chest after PEA arrest. In setting of elevated lactate 03/27 overnight favor treatment at this time. 03/27 tracheal aspirate grew Klebsiella pneumonia and CItrobacter - Vanc + Cefe (03/26) -> Unasyn (03/27-) -> broadened to vanc + azithro x 3d + zosyn 03/27 post PEA - Ciprofloxicin 750 BID EOT 04/02 Assessment & Plan (04/27/2025 9:58 AM CDT): Concern for PNA on CT chest after PEA arrest. In setting of elevated lactate 03/27 overnight favor treatment at this time. 03/27 tracheal aspirate grew Klebsiella pneumonia and CItrobacter - Vanc + Cefe (03/26) -> Unasyn (03/27-) -> broadened to vanc + azithro x 3d + zosyn 03/27 post PEA - Ciprofloxicin 750 BID EOT 04/02 Assessment & Plan (04/26/2025 10:07 AM CDT): Concern for PNA on CT chest after PEA arrest. In setting of elevated lactate 03/27 overnight favor treatment at this time. 6 tracheal aspirate grew Klebsiella pneumonia and CItrobacter - Vanc + Cefe (03/26) -> Unasyn (03/27-) -> broadened to vanc + azithro x 3d + zosyn 03/27 post PEA - Ciprofloxicin 750 BID EOT 04/02 Assessment & Plan (04/25/2025 10:43 AM CDT): Concern for PNA on CT chest after PEA arrest. In setting of elevated lactate 03/27 overnight favor treatment at this time. 03/27 tracheal aspirate grew Klebsiella pneumonia and CItrobacter - Vanc + Cefe (03/26) -> Unasyn (03/27-) -> broadened to vanc + azithro x 3d + zosyn 03/27 post PEA - Ciprofloxicin 750 BID EOT 04/02 Assessment & Plan (04/24/2025 11:01 AM CDT): Concern for PNA on CT chest after PEA arrest. In setting of elevated lactate 03/27 overnight favor treatment at this time. 03/27 tracheal aspirate grew Klebsiella pneumonia and CItrobacter - Vanc + Cefe (03/26) -> Unasyn (03/27-) -> broadened to vanc + azithro x 3d + zosyn 03/27 post PEA - Ciprofloxicin 750 BID EOT 04/02 Assessment & Plan (04/23/2025 2:21 PM CDT): Concern for PNA on CT chest after PEA arrest. In setting of elevated lactate 03/27 overnight favor treatment at this time. 03/27 tracheal aspirate grew Klebsiella pneumonia and CItrobacter - Vanc + Cefe (03/26) -> Unasyn (03/27-) -> broadened to vanc + azithro x 3d + zosyn / post PEA - Ciprofloxicin 750 BID EOT 04/02 Assessment & Plan (04/23/2025 6:07 AM CDT): Concern for PNA on CT chest after PEA arrest. In setting of elevated lactate 03/27 overnight favor treatment at this time. 03/27 tracheal aspirate grew Klebsiella pneumonia and CItrobacter - Vanc + Cefe (03/26) -> Unasyn (03/27-) -> broadened to vanc + azithro x 3d + zosyn 03/27 post PEA - Ciprofloxicin 750 BID EOT 04/02 Assessment & Plan (04/21/2025 9:58 AM CDT): Concern for PNA on CT chest after PEA arrest. In setting of elevated lactate 03/27 overnight favor treatment at this time. 03/27 tracheal aspirate grew Klebsiella pneumonia and CItrobacter - Vanc + Cefe (03/26) -> Unasyn (03/27-) -> broadened to vanc + azithro x 3d + zosyn 03/27 post PEA - Ciprofloxicin 750 BID EOT 04/02 Assessment & Plan (04/20/2025 2:26 PM CDT): Concern for PNA on CT chest after PEA arrest. In setting of elevated lactate 03/27 overnight favor treatment at this time. 03/27 tracheal aspirate grew Klebsiella pneumonia and CItrobacter - Vanc + Cefe (03/26) -> Unasyn (03/27-) -> broadened to vanc + azithro x 3d + zosyn 03/27 post PEA - Ciprofloxicin 750 BID EOT 04/02 Assessment & Plan (04/19/2025 12:35 PM CDT): Concern for PNA on CT chest after PEA arrest. In setting of elevated lactate 03/27 overnight favor treatment at this time. 03/27 tracheal aspirate grew Klebsiella pneumonia and CItrobacter - Vanc + Cefe (03/26) -> Unasyn (03/27-) -> broadened to vanc + azithro x 3d + zosyn 03/27 post PEA - Ciprofloxicin 750 BID EOT 04/02 Assessment & Plan (04/18/2025 4:09 PM CDT): Concern for PNA on CT chest after PEA arrest. In setting of elevated lactate 03/27 overnight favor treatment at this time. 6 tracheal aspirate grew Klebsiella pneumonia and CItrobacter - Vanc + Cefe (03/26) -> Unasyn (03/27-) -> broadened to vanc + azithro x 3d + zosyn 03/27 post PEA - Ciprofloxicin 750 BID EOT 04/02 Assessment & Plan (04/17/2025 4:37 PM CDT): Concern for PNA on CT chest after PEA arrest. In setting of elevated lactate 03/27 overnight favor treatment at this time. 03/27 tracheal aspirate grew Klebsiella pneumonia and CItrobacter - Vanc + Cefe (03/26) -> Unasyn (03/27-) -> broadened to vanc + azithro x 3d + zosyn 03/27 post PEA - Ciprofloxicin 750 BID EOT 04/02 Assessment & Plan (04/16/2025 1:42 PM CDT): Concern for PNA on CT chest after PEA arrest. In setting of elevated lactate 03/27 overnight favor treatment at this time. 03/27 tracheal aspirate grew Klebsiella pneumonia and CItrobacter - Vanc + Cefe (03/26) -> Unasyn (03/27-) -> broadened to vanc + azithro x 3d + zosyn 03/27 post PEA - Ciprofloxicin 750 BID EOT 04/02 Assessment & Plan (04/15/2025 8:16 AM CDT): Concern for PNA on CT chest after PEA arrest. In setting of elevated lactate 03/27 overnight favor treatment at this time. 03/27 tracheal aspirate grew Klebsiella pneumonia and CItrobacter - Vanc + Cefe (03/26) -> Unasyn (03/27-) -> broadened to vanc + azithro x 3d + zosyn 03/27 post PEA - Ciprofloxicin 750 BID EOT 04/02 Assessment & Plan (04/14/2025 8:46 AM CDT): Concern for PNA on CT chest after PEA arrest. In setting of elevated lactate 6/ overnight favor treatment at this time. 6 tracheal aspirate grew Klebsiella pneumonia and CItrobacter - Vanc + Cefe (03/26) -> Unasyn (03/27-) -> broadened to vanc + azithro x 3d + zosyn 03/27 post PEA - Ciprofloxicin 750 BID EOT 04/02 Assessment & Plan (04/13/2025 9:00 AM CDT): Concern for PNA on CT chest after PEA arrest. In setting of elevated lactate 03/27 overnight favor treatment at this time. 6 tracheal aspirate grew Klebsiella pneumonia and CItrobacter - Vanc + Cefe (03/26) -> Unasyn (03/27-) -> broadened to vanc + azithro x 3d + zosyn 03/27 post PEA - Ciprofloxicin 750 BID EOT 04/02 Assessment & Plan (04/12/2025 12:46 PM CDT): Concern for PNA on CT chest after PEA arrest. In setting of elevated lactate 03/27 overnight favor treatment at this time. 03/27 tracheal aspirate grew Klebsiella pneumonia and CItrobacter - Vanc + Cefe (03/26) -> Unasyn (03/27-) -> broadened to vanc + azithro x 3d + zosyn 03/27 post PEA - Ciprofloxicin 750 BID EOT 04/02 Assessment & Plan (04/11/2025 11:36 AM CDT): Concern for PNA on CT chest after PEA arrest. In setting of elevated lactate 03/27 overnight favor treatment at this time. 6 tracheal aspirate grew Klebsiella pneumonia and CItrobacter - Vanc + Cefe (03/26) -> Unasyn (03/27-) -> broadened to vanc + azithro x 3d + zosyn 03/27 post PEA - Ciprofloxicin 750 BID EOT 04/02 Assessment & Plan (04/10/2025 4:18 PM CDT): Concern for PNA on CT chest after PEA arrest. In setting of elevated lactate 03/27 overnight favor treatment at this time. 6/ tracheal aspirate grew Klebsiella pneumonia and CItrobacter - Vanc + Cefe (03/26) -> Unasyn (03/27-) -> broadened to vanc + azithro x 3d + zosyn 03/27 post PEA - Ciprofloxicin 750 BID EOT 04/02 Assessment & Plan (04/09/2025 9:12 AM CDT): Concern for PNA on CT chest after PEA arrest. In setting of elevated lactate 03/27 overnight favor treatment at this time. 6 tracheal aspirate grew Klebsiella pneumonia and CItrobacter - Vanc + Cefe (03/26) -> Unasyn (03/27-) -> broadened to vanc + azithro x 3d + zosyn 03/27 post PEA - Ciprofloxicin 750 BID EOT 04/02 Assessment & Plan (04/08/2025 12:13 PM CDT): Concern for PNA on CT chest after PEA arrest. In setting of elevated lactate 03/27 overnight favor treatment at this time. 03/27 tracheal aspirate grew Klebsiella pneumonia and CItrobacter - Vanc + Cefe (03/26) -> Unasyn (03/27-) -> broadened to vanc + azithro x 3d + zosyn 03/27 post PEA - Ciprofloxicin 750 BID EOT 04/02 Assessment & Plan (04/07/2025 11:34 AM CDT): Concern for PNA on CT chest after PEA arrest. In setting of elevated lactate 03/27 overnight favor treatment at this time. 03/27 tracheal aspirate grew Klebsiella pneumonia and CItrobacter - Vanc + Cefe (03/26) -> Unasyn (03/27-) -> broadened to vanc + azithro x 3d + zosyn 03/27 post PEA - Ciprofloxicin 750 BID EOT 04/02 Assessment & Plan (04/06/2025 10:54 AM CDT): Concern for PNA on CT chest after PEA arrest. In setting of elevated lactate 6/ overnight favor treatment at this time. 6 tracheal aspirate grew Klebsiella pneumonia and CItrobacter - Vanc + Cefe (6/10) -> Unasyn (03/27-) -> broadened to vanc + azithro x 3d + zosyn 03/27 post PEA - Ciprofloxicin 750 BID EOT 04/02 Assessment & Plan (04/05/2025 12:28 PM CDT): Concern for PNA on CT chest after PEA arrest. In setting of elevated lactate 03/27 overnight favor treatment at this time. 03/27 tracheal aspirate grew Klebsiella pneumonia and CItrobacter - Vanc + Cefe (03/26) -> Unasyn (03/27-) -> broadened to vanc + azithro x 3d + zosyn 03/27 post PEA - Ciprofloxicin 750 BID EOT 04/02 Assessment & Plan (04/04/2025 11:26 AM CDT): Concern for PNA on CT chest after PEA arrest. In setting of elevated lactate 03/27 overnight favor treatment at this time. 03/27 tracheal aspirate grew Klebsiella pneumonia and CItrobacter - Vanc + Cefe (03/26) -> Unasyn (03/27-) -> broadened to vanc + azithro x 3d + zosyn 03/27 post PEA - Ciprofloxicin 750 BID EOT 04/02 Assessment & Plan (04/03/2025 11:53 AM CDT): Concern for PNA on CT chest after PEA arrest. In setting of elevated lactate 03/27 overnight favor treatment at this time. 03/27 tracheal aspirate grew Klebsiella pneumonia and CItrobacter - Vanc + Cefe (03/26) -> Unasyn (03/27-) -> broadened to vanc + azithro x 3d + zosyn 03/27 post PEA - Ciprofloxicin 750 BID EOT 04/02 Assessment & Plan (04/02/2025 10:42 AM CDT): Concern for PNA on CT chest after PEA arrest. In setting of elevated lactate 03/27 overnight favor treatment at this time. 6 tracheal aspirate grew Klebsiella pneumonia and CItrobacter - Vanc + Cefe (03/26) -> Unasyn (03/27-) -> broadened to vanc + azithro x 3d + zosyn 03/27 post PEA - Ciprofloxicin 750 BID EOT 04/02 Assessment & Plan (04/01/2025 7:24 AM CDT): Concern for PNA on CT chest after PEA arrest. In setting of elevated lactate 03/27 overnight favor treatment at this time. 03/27 tracheal aspirate grew Klebsiella pneumonia and CItrobacter - Vanc + Cefe (03/26) -> Unasyn (03/27-) -> broadened to vanc + azithro x 3d + zosyn 03/27 post PEA - Ciprofloxicin 750 BID EOT 04/02 Assessment & Plan (03/31/2025 2:26 PM CDT): Concern for PNA on CT chest after PEA arrest. In setting of elevated lactate 03/27 overnight favor treatment at this time. 03/27 tracheal aspirate grew Klebsiella pneumonia and CItrobacter - Vanc + Cefe (03/26) -> Unasyn (03/27-) -> broadened to vanc + azithro x 3d + zosyn 03/27 post PEA - Ciprofloxicin 750 BID EOT 04/02 ABLA (acute blood loss anemia) 03/31/2025 Assessment & Plan (05/10/2025 7:59 AM CDT): STABLE Post procedural bleeding from groin site failed direct pressure control. Early in AM on 03/26 had hypotension, concern for hemorrhagic shock 2/2 RP bleeding. MTP activated, 2 stents placed in R external iliac. In ICU, persistent shock and high NE, vasopressin requirement despite ongoing transfusions. 03/26 CTA Active hemorrhage occurring in the posterior aspect of the large right iliac fossa hematoma. The opacification of a small right ilial lumbar branch arising from the right internal iliac artery seems to be extending into the area of Densities which represents acute active bleeding. The adjacent external iliac artery contains a long stent. Sent here for management IMAGING 03/26 urgently taken to IR : a small focus of active extravasation/pseudoaneurysm from a branch of internal iliac artery was treated with a right internal iliac artery coil and Obsidio embolization. No evidence of further bleeding on repeat imaging. Weaned off pressors. Restarted plavix 04/04 and eliquis 04/03. Now on hold since 04/07 for GIB 03/26 CT with Large right retroperitoneal hematoma which measures up to 13.6 x 20.6 x 22.5 cm with a redemonstrated layering contrast blush which overall is similar in size compared to prior. off eliquis/plavix-no plan to restart. Hematoma causing some RLQ abd pain-add PRN oxycodone. Improved with lidoderm patches S/p 7 units prbcs, 3 units FFP, 1 platelets -Now stabilized, Hgb 8.8-10.2 in the last week Assessment & Plan (05/09/2025 7:59 AM CDT): STABLE Post procedural bleeding from groin site failed direct pressure control. Early in AM on 03/26 had hypotension, concern for hemorrhagic shock 2/2 RP bleeding. MTP activated, 2 stents placed in R external iliac. In ICU, persistent shock and high NE, vasopressin requirement despite ongoing transfusions. 03/26 CTA Active hemorrhage occurring in the posterior aspect of the large right iliac fossa hematoma. The opacification of a small right ilial lumbar branch arising from the right internal iliac artery seems to be extending into the area of Densities which represents acute active bleeding. The adjacent external iliac artery contains a long stent. Sent here for management IMAGING 03/26 urgently taken to IR : a small focus of active extravasation/pseudoaneurysm from a branch of internal iliac artery was treated with a right internal iliac artery coil and Obsidio embolization. No evidence of further bleeding on repeat imaging. Weaned off pressors. Restarted plavix 04/04 and eliquis 04/03. Now on hold since 04/07 for GIB 03/26 CT with Large right retroperitoneal hematoma which measures up to 13.6 x 20.6 x 22.5 cm with a redemonstrated layering contrast blush which overall is similar in size compared to prior. off eliquis/plavix-no plan to restart. Hematoma causing some RLQ abd pain-add PRN oxycodone. Improved with lidoderm patches S/p 7 units prbcs, 3 units FFP, 1 platelets -Now stabilized, Hgb 8.8-10.2 in the last week Assessment & Plan (05/08/2025 7:40 AM CDT): STABLE Post procedural bleeding from groin site failed direct pressure control. Early in AM on 03/26 had hypotension, concern for hemorrhagic shock 2/2 RP bleeding. MTP activated, 2 stents placed in R external iliac. In ICU, persistent shock and high NE, vasopressin requirement despite ongoing transfusions. 03/26 CTA Active hemorrhage occurring in the posterior aspect of the large right iliac fossa hematoma. The opacification of a small right ilial lumbar branch arising from the right internal iliac artery seems to be extending into the area of Densities which represents acute active bleeding. The adjacent external iliac artery contains a long stent. Sent here for management IMAGING 03/26 urgently taken to IR : a small focus of active extravasation/pseudoaneurysm from a branch of internal iliac artery was treated with a right internal iliac artery coil and Obsidio embolization. No evidence of further bleeding on repeat imaging. Weaned off pressors. Restarted plavix 04/04 and eliquis 04/03. Now on hold since 04/07 for GIB 03/26 CT with Large right retroperitoneal hematoma which measures up to 13.6 x 20.6 x 22.5 cm with a redemonstrated layering contrast blush which overall is similar in size compared to prior. off eliquis/plavix-no plan to restart. Hematoma causing some RLQ abd pain-add PRN oxycodone. Improved with lidoderm patches S/p 7 units prbcs, 3 units FFP, 1 platelets -Now stabilized, Hgb 8.8-10.2 in the last week Assessment & Plan (05/07/2025 7:31 AM CDT): STABLE Post procedural bleeding from groin site failed direct pressure control. Early in AM on 03/26 had hypotension, concern for hemorrhagic shock 2/2 RP bleeding. MTP activated, 2 stents placed in R external iliac. In [facility] ICU, persistent shock and high NE, vasopressin requirement despite ongoing transfusions. 03/26 CTA Active hemorrhage occurring in the posterior aspect of the large right iliac fossa hematoma. The opacification of a small right ilial lumbar branch arising from the right internal iliac artery seems to be extending into the area of Densities which represents acute active bleeding. The adjacent external iliac artery contains a long stent. Sent here for management IMAGING 03/26 urgently taken to IR : a small focus of active extravasation/pseudoaneurysm from a branch of internal iliac artery was treated with a right internal iliac artery coil and Obsidio embolization. No evidence of further bleeding on repeat imaging. Weaned off pressors. Restarted plavix 04/04 and eliquis 04/03. Now on hold since 04/07 for GIB 03/26 CT with Large right retroperitoneal hematoma which measures up to 13.6 x 20.6 x 22.5 cm with a redemonstrated layering contrast blush which overall is similar in size compared to prior. off eliquis/plavix-no plan to restart. Hematoma causing some RLQ abd pain-add PRN oxycodone. Improved with lidoderm patches S/p 7 units prbcs, 3 units FFP, 1 platelets -Now stabilized, Hgb 8.8-10.2 in the last week Assessment & Plan (05/06/2025 8:47 AM CDT): STABLE Post procedural bleeding from groin site failed direct pressure control. Early in AM on 03/26 had hypotension, concern for hemorrhagic shock 2/2 RP bleeding. MTP activated, 2 stents placed in R external iliac. In ICU, persistent shock and high NE, vasopressin requirement despite ongoing transfusions. 03/26 CTA Active hemorrhage occurring in the posterior aspect of the large right iliac fossa hematoma. The opacification of a small right ilial lumbar branch arising from the right internal iliac artery seems to be extending into the area of Densities which represents acute active bleeding. The adjacent external iliac artery contains a long stent. Sent here for management IMAGING 03/26 urgently taken to IR : a small focus of active extravasation/pseudoaneurysm from a branch of internal iliac artery was treated with a right internal iliac artery coil and Obsidio embolization. No evidence of further bleeding on repeat imaging. Weaned off pressors. Restarted plavix 04/04 and eliquis 04/03. Now on hold since 04/07 for GIB 03/26 CT with Large right retroperitoneal hematoma which measures up to 13.6 x 20.6 x 22.5 cm with a redemonstrated layering contrast blush which overall is similar in size compared to prior. off eliquis/plavix-no plan to restart. Hematoma causing some RLQ abd pain-add PRN oxycodone. Improved with lidoderm patches S/p 7 units prbcs, 3 units FFP, 1 platelets -Now stabilized, Hgb 8.8-10.2 in the last week Assessment & Plan (05/05/2025 3:50 PM CDT): STABLE Post procedural bleeding from groin site failed direct pressure control. Early in AM on 03/26 had hypotension, concern for hemorrhagic shock 2/2 RP bleeding. MTP activated, 2 stents placed in R external iliac. In ICU, persistent shock and high NE, vasopressin requirement despite ongoing transfusions. 03/26 CTA Active hemorrhage occurring in the posterior aspect of the large right iliac fossa hematoma. The opacification of a small right ilial lumbar branch arising from the right internal iliac artery seems to be extending into the area of Densities which represents acute active bleeding. The adjacent external iliac artery contains a long stent. Sent here for management IMAGING 03/26 urgently taken to IR : a small focus of active extravasation/pseudoaneurysm from a branch of internal iliac artery was treated with a right internal iliac artery coil and Obsidio embolization. No evidence of further bleeding on repeat imaging. Weaned off pressors. Restarted plavix 04/04 and eliquis 04/03. Now on hold since 04/07 for GIB 03/26 CT with Large right retroperitoneal hematoma which measures up to 13.6 x 20.6 x 22.5 cm with a redemonstrated layering contrast blush which overall is similar in size compared to prior. off eliquis/plavix-no plan to restart. Hematoma causing some RLQ abd pain-add PRN oxycodone. Improved with lidoderm patches S/p 7 units prbcs, 3 units FFP, 1 platelets -Now stabilized, Hgb 8.8-10.2 in the last week Assessment & Plan (05/04/2025 10:31 AM CDT): S/p 7 units prbcs, 3 units FFP, 1 platelets -Now stabilized Assessment & Plan (05/03/2025 1:22 PM CDT): S/p 7 units prbcs, 3 units FFP, 1 platelets -Now stabilized Assessment & Plan (05/02/2025 1:13 PM CDT): S/p 7 units prbcs, 3 units FFP, 1 platelets -Now stabilized Assessment & Plan (04/30/2025 5:18 PM CDT): S/p 7 units prbcs, 3 units FFP, 1 platelets -Now stabilized Assessment & Plan (04/29/2025 10:33 AM CDT): S/p 7 units prbcs, 3 units FFP, 1 platelets -Now stabilized -Hgb=10.9 04/04, monitor daily CBC -04/05 Hgb=11.1 -see RP bleed and GIB problems -04/23 Hgb=8.8 -04/24 Hgb=9.7-likely falsely elevated -04/25 Hgb=8.8 -04/26 Hgb=8.9 -04/27 Hgb=10.2 -04/29 Hgb=8.8 no sign of bleeding Assessment & Plan (04/28/2025 11:48 AM CDT): S/p 7 units prbcs, 3 units FFP, 1 platelets -Now stabilized -Hgb=10.9 04/04, monitor daily CBC -04/05 Hgb=11.1 -see RP bleed and GIB problems -8 Hgb=8.8 -7 Hgb=9.7-likely falsely elevated -04/25 Hgb=8.8 -04/26 Hgb=8.4-xdgoyec-xr sign of bleeding Assessment & Plan (04/27/2025 9:58 AM CDT): S/p 7 units prbcs, 3 units FFP, 1 platelets -Now stabilized -Hgb=10.9 04/04, monitor daily CBC -04/05 Hgb=11.1 -see RP bleed and GIB problems -8 Hgb=8.8 -7 Hgb=9.7-likely falsely elevated -04/25 Hgb=8.8 -04/26 Hgb=8.1-ejhrrgf-au sign of bleeding Assessment & Plan (04/26/2025 10:07 AM CDT): S/p 7 units prbcs, 3 units FFP, 1 platelets -Now stabilized -Hgb=10.9 6/, monitor daily CBC -04/05 Hgb=11.1 -see RP bleed and GIB problems -04/23 Hgb=8.8 -04/24 Hgb=9.7-likely falsely elevated -04/25 Hgb=8.8 -04/26 Hgb=8.3-fmzchbw-gd sign of bleeding Assessment & Plan (04/25/2025 10:43 AM CDT): S/p 7 units prbcs, 3 units FFP, 1 platelets -Now stabilized -Hgb=10.9 04/04, monitor daily CBC -04/05 Hgb=11.1 -see RP bleed and GIB problems -04/23 Hgb=8.8 -04/24 Hgb=9.7 -04/25 Hgb=8.8-monitor Assessment & Plan (04/24/2025 11:01 AM CDT): S/p 7 units prbcs, 3 units FFP, 1 platelets -Now stabilized -Hgb=10.9 6/, monitor daily CBC -04/05 Hgb=11.1 -see RP bleed and GIB problems -04/23 Hgb=8.8 -04/24 Hgb=9.7 Assessment & Plan (04/23/2025 2:21 PM CDT): S/p 7 units prbcs, 3 units FFP, 1 platelets -Now stabilized -Hgb=10.9 6/, monitor daily CBC -04/05 Hgb=11.1 -see RP bleed and GIB problems -04/23 Hgb=8.8 Assessment & Plan (04/23/2025 6:07 AM CDT): S/p 7 units prbcs, 3 units FFP, 1 platelets -Now stabilized -Hgb=10.9 6/, monitor daily CBC -04/05 Hgb=11.1 -see RP bleed and GIB problems Assessment & Plan (04/21/2025 9:58 AM CDT): S/p 7 units prbcs, 3 units FFP, 1 platelets -Now stabilized -Hgb=10.9 6/19, monitor daily CBC -6/20 Hgb=11.1 -see RP bleed and GIB problems Assessment & Plan (04/20/2025 2:26 PM CDT): S/p 7 units prbcs, 3 units FFP, 1 platelets -Now stabilized -Hgb=10.9 6/19, monitor daily CBC -6/20 Hgb=11.1 -see RP bleed and GIB problems Assessment & Plan (04/19/2025 12:35 PM CDT): S/p 7 units prbcs, 3 units FFP, 1 platelets -Now stabilized -Hgb=10.9 6/19, monitor daily CBC -6/20 Hgb=11.1 -see RP bleed and GIB problems Assessment & Plan (04/18/2025 4:09 PM CDT): S/p 7 units prbcs, 3 units FFP, 1 platelets -Now stabilized -Hgb=10.9 6/19, monitor daily CBC -6/20 Hgb=11.1 -see RP bleed and GIB problems Assessment & Plan (04/17/2025 4:37 PM CDT): S/p 7 units prbcs, 3 units FFP, 1 platelets -Now stabilized -Hgb=10.9 6/19, monitor daily CBC -6/20 Hgb=11.1 -see RP bleed and GIB problems Assessment & Plan (04/16/2025 1:42 PM CDT): S/p 7 units prbcs, 3 units FFP, 1 platelets -Now stabilized -Hgb=10.9 6/19, monitor daily CBC -6/20 Hgb=11.1 -see RP bleed and GIB problems Assessment & Plan (04/15/2025 8:16 AM CDT): S/p 7 units prbcs, 3 units FFP, 1 platelets -Now stabilized -Hgb=10.9 6/19, monitor daily CBC -6/20 Hgb=11.1 -see RP bleed and GIB problems Assessment & Plan (04/14/2025 8:46 AM CDT): S/p 7 units prbcs, 3 units FFP, 1 platelets -Now stabilized -Hgb=10.9 6/19, monitor daily CBC -6/20 Hgb=11.1 -see RP bleed and GIB problems Assessment & Plan (04/13/2025 9:00 AM CDT): S/p 7 units prbcs, 3 units FFP, 1 platelets -Now stabilized -Hgb=10.9 6/19, monitor daily CBC -6/20 Hgb=11.1 -see RP bleed and GIB problems Assessment & Plan (04/12/2025 12:46 PM CDT): S/p 7 units prbcs, 3 units FFP, 1 platelets -Now stabilized -Hgb=10.9 6/19, monitor daily CBC -6/20 Hgb=11.1 -see RP bleed and GIB problems Assessment & Plan (04/11/2025 11:36 AM CDT): S/p 7 units prbcs, 3 units FFP, 1 platelets -Now stabilized -Hgb=10.9 6/19, monitor daily CBC -6/20 Hgb=11.1 -see RP bleed and GIB problems Assessment & Plan (04/10/2025 4:18 PM CDT): S/p 7 units prbcs, 3 units FFP, 1 platelets -Now stabilized -Hgb=10.9 6/19, monitor daily CBC -6/20 Hgb=11.1 Assessment & Plan (04/09/2025 9:12 AM CDT): S/p 7 units prbcs, 3 units FFP, 1 platelets -Now stabilized -Hgb=10.9 6/19, monitor daily CBC -6/20 Hgb=11.1 Assessment & Plan (04/08/2025 12:13 PM CDT): S/p 7 units prbcs, 3 units FFP, 1 platelets -Now stabilized -Hgb=10.9 6/19, monitor daily CBC -6/20 Hgb=11.1 Assessment & Plan (04/07/2025 11:34 AM CDT): S/p 7 units prbcs, 3 units FFP, 1 platelets -Now stabilized -Hgb=10.9 6/19, monitor daily CBC -6/20 Hgb=11.1 Assessment & Plan (04/06/2025 10:54 AM CDT): S/p 7 units prbcs, 3 units FFP, 1 platelets -Now stabilized -Hgb=10.9 6/19, monitor daily CBC -6/20 Hgb=11.1 Assessment & Plan (04/05/2025 12:28 PM CDT): S/p 7 units prbcs, 3 units FFP, 1 platelets -Now stabilized -Hgb=10.9 6/19, monitor daily CBC -6/20 Hgb=11.1 Assessment & Plan (04/04/2025 11:26 AM CDT): S/p 7 units prbcs, 3 units FFP, 1 platelets -Now stabilized -Hgb=10.9 6/19, monitor daily CBC Assessment & Plan (04/03/2025 11:53 AM CDT): S/p 7 units prbcs, 3 units FFP, 1 platelets -Now stabilized -CBC q24 hours Assessment & Plan (04/02/2025 10:42 AM CDT): S/p 7 units prbcs, 3 units FFP, 1 platelets -Now stabilized -CBC q24 hours Assessment & Plan (04/01/2025 7:24 AM CDT): S/p 7 units prbcs, 3 units FFP, 1 platelets -Now stabilized -CBC q24 hours Assessment & Plan (03/31/2025 2:26 PM CDT): S/p 7 units prbcs, 3 units FFP, 1 platelets -Now stabilized -CBC q24 hours Hypothyroidism, unspecified 03/31/2025 Assessment & Plan (05/10/2025 7:59 AM CDT): CHRONIC, STABLE TSH 1.05 on admit Home levothyroxine 175 mcg daily Changed to IV given GI issues. Resumed PO 7/8 Assessment & Plan (05/09/2025 7:59 AM CDT): CHRONIC, STABLE TSH 1.05 on admit Home levothyroxine 175 mcg daily Changed to IV given GI issues. Resumed PO 7/8 Assessment & Plan (05/08/2025 7:40 AM CDT): CHRONIC, STABLE TSH 1.05 on admit Home levothyroxine 175 mcg daily Changed to IV given GI issues. Resumed PO 7/8 Assessment & Plan (05/07/2025 7:31 AM CDT): CHRONIC, STABLE TSH 1.05 on admit Home levothyroxine 175 mcg daily Changed to IV given GI issues. Resumed PO 7/8 Assessment & Plan (05/06/2025 8:47 AM CDT): CHRONIC, STABLE TSH 1.05 on admit Home levothyroxine 175 mcg daily Changed to IV given GI issues. Resumed PO 7/8 Assessment & Plan (05/05/2025 3:50 PM CDT): CHRONIC, STABLE TSH 1.05 on admit Home levothyroxine 175 mcg daily Changed to IV given GI issues. Resumed PO 7/8 Assessment & Plan (05/04/2025 10:31 AM CDT): TSH 1.05 on admit Home levothyroxine 175 mcg daily Changed to IV given GI issues. Resumed PO 7/8 Assessment & Plan (05/03/2025 1:22 PM CDT): TSH 1.05 on admit Home levothyroxine 175 mcg daily Changed to IV given GI issues. Resumed PO 7/8 Assessment & Plan (05/02/2025 11:01 AM CDT): TSH 1.05 on admit Home levothyroxine 175 mcg daily Changed to IV given GI issues. Resumed PO 7/8 Assessment & Plan (04/30/2025 5:18 PM CDT): TSH 1.05 on admit Home levothyroxine 175 mcg daily Changed to IV given GI issues. Resumed PO 7/8 Assessment & Plan (04/29/2025 10:33 AM CDT): TSH 1.05 on admit -Cont home levothyroxine 175 mcg daily -Change to IV given GI issues -7/8 resume oral dosing Assessment & Plan (04/28/2025 11:48 AM CDT): TSH 1.05 on admit -Cont home levothyroxine 175 mcg daily -Change to IV given GI issues -7/8 resume oral dosing Assessment & Plan (04/27/2025 9:58 AM CDT): TSH 1.05 on admit -Cont home levothyroxine 175 mcg daily -Change to IV given GI issues -7/8 resume oral dosing Assessment & Plan (04/26/2025 10:07 AM CDT): TSH 1.05 on admit -Cont home levothyroxine 175 mcg daily -Change to IV given GI issues -7/8 resume oral dosing Assessment & Plan (04/25/2025 10:43 AM CDT): TSH 1.05 on admit -Cont home levothyroxine 175 mcg daily -Change to IV given GI issues -7/8 resume oral dosing Assessment & Plan (04/24/2025 11:01 AM CDT): TSH 1.05 on admit -Cont home levothyroxine 175 mcg daily -Change to IV given GI issues -7/8 resume oral dosing Assessment & Plan (04/23/2025 2:21 PM CDT): TSH 1.05 on admit -Cont home levothyroxine 175 mcg daily -Change to IV given GI issues -7/8 resume oral dosing Assessment & Plan (04/23/2025 6:07 AM CDT): TSH 1.05 on admit -Cont home levothyroxine 175 mcg daily -Change to IV given GI issues Assessment & Plan (04/21/2025 9:58 AM CDT): TSH 1.05 on admit -Cont home levothyroxine 175 mcg daily -Change to IV given GI issues Assessment & Plan (04/20/2025 2:26 PM CDT): TSH 1.05 on admit -Cont home levothyroxine 175 mcg daily -Change to IV given GI issues Assessment & Plan (04/19/2025 12:35 PM CDT): TSH 1.05 on admit -Cont home levothyroxine 175 mcg daily -Change to IV given GI issues Assessment & Plan (04/18/2025 4:09 PM CDT): TSH 1.05 on admit -Cont home levothyroxine 175 mcg daily -Change to IV given GI issues Assessment & Plan (04/17/2025 4:37 PM CDT): TSH 1.05 on admit -Cont home levothyroxine 175 mcg daily -Change to IV given GI issues Assessment & Plan (04/16/2025 1:42 PM CDT): TSH 1.05 on admit -Cont home levothyroxine 175 mcg daily -Change to IV given GI issues Assessment & Plan (04/15/2025 8:16 AM CDT): TSH 1.05 on admit -Cont home levothyroxine 175 mcg daily -Change to IV given GI issues Assessment & Plan (04/14/2025 11:36 AM CDT): TSH 1.05 on admit -Cont home levothyroxine 175 mcg daily -Change to IV given GI issues Assessment & Plan (04/13/2025 9:00 AM CDT): TSH 1.05 on admit -Cont home levothyroxine 175 mcg daily Assessment & Plan (04/12/2025 12:46 PM CDT): TSH 1.05 on admit -Cont home levothyroxine 175 mcg daily Assessment & Plan (04/11/2025 11:36 AM CDT): TSH 1.05 on admit -Cont home levothyroxine 175 mcg daily Assessment & Plan (04/10/2025 4:18 PM CDT): TSH 1.05 on admit -Cont home levothyroxine 175 mcg daily Assessment & Plan (04/09/2025 9:12 AM CDT): TSH 1.05 on admit -Cont home levothyroxine 175 mcg daily Assessment & Plan (04/08/2025 12:13 PM CDT): TSH 1.05 on admit -Cont home levothyroxine 175 mcg daily Assessment & Plan (04/07/2025 11:34 AM CDT): TSH 1.05 on admit -Cont home levothyroxine 175 mcg daily Assessment & Plan (04/06/2025 10:54 AM CDT): TSH 1.05 on admit -Cont home levothyroxine 175 mcg daily Assessment & Plan (04/05/2025 12:28 PM CDT): TSH 1.05 on admit -Cont home levothyroxine 175 mcg daily Assessment & Plan (04/04/2025 11:26 AM CDT): TSH 1.05 on admit -Cont home levothyroxine 175 mcg daily Assessment & Plan (04/03/2025 11:53 AM CDT): TSH 1.05 on admit -Cont home levothyroxine 175 mcg daily Assessment & Plan (04/02/2025 10:42 AM CDT): TSH 1.05 on admit -Cont home levothyroxine 175 mcg daily Assessment & Plan (04/01/2025 7:24 AM CDT): TSH 1.05 on admit -Cont home levothyroxine 175 mcg daily Assessment & Plan (03/31/2025 2:26 PM CDT): TSH 1.05 on admit -Cont home levothyroxine 175 mcg daily 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 Home Allopurinol was held Assessment & Plan (05/09/2025 7:59 AM CDT): CHRONIC, STABLE Denies history of gout attack. Home Allopurinol was held Assessment & Plan (05/08/2025 7:40 AM CDT): CHRONIC, STABLE Denies history of gout attack. Home Allopurinol was held Assessment & Plan (05/07/2025 7:31 AM CDT): CHRONIC, STABLE Denies history of gout attack. Home Allopurinol was held Assessment & Plan (05/06/2025 8:47 AM CDT): CHRONIC, STABLE Denies history of gout attack. Home Allopurinol was held Assessment & Plan (05/05/2025 3:50 PM CDT): CHRONIC, STABLE Denies history of gout attack. Home Allopurinol was held Assessment & Plan (05/04/2025 10:32 AM CDT): Denies history of gout attack. Home Allopurinol was held Assessment & Plan (05/03/2025 1:22 PM CDT): Denies history of gout attack. Home Allopurinol was held Assessment & Plan (05/02/2025 11:01 AM CDT): Denies history of gout attack. Home Allopurinol was held Assessment & Plan (04/30/2025 5:18 PM CDT): Denies history of gout attack. Home Allopurinol was held Assessment & Plan (04/29/2025 10:33 AM CDT): Denies history of gout attack. Home Allopurinol was held Assessment & Plan (04/28/2025 11:48 AM CDT): Denies history of gout attack. Home Allopurinol was held Assessment & Plan (04/27/2025 9:58 AM CDT): Denies history of gout attack. Home Allopurinol was held Assessment & Plan (04/26/2025 10:07 AM CDT): Denies history of gout attack. Home Allopurinol was held Assessment & Plan (04/25/2025 10:43 AM CDT): Denies history of gout attack. Home Allopurinol was held Assessment & Plan (04/24/2025 11:01 AM CDT): Denies history of gout attack. Home Allopurinol was held Assessment & Plan (04/23/2025 2:21 PM CDT): Denies history of gout attack. Home Allopurinol was held Assessment & Plan (04/23/2025 6:07 AM CDT): Denies history of gout attack. Home Allopurinol was held Assessment & Plan (04/21/2025 9:58 AM CDT): Denies history of gout attack. Home Allopurinol was held Assessment & Plan (04/20/2025 2:26 PM CDT): Denies history of gout attack. Home Allopurinol was held Assessment & Plan (04/19/2025 12:35 PM CDT): Denies history of gout attack. Home Allopurinol was held Assessment & Plan (04/18/2025 4:09 PM CDT): Denies history of gout attack. Home Allopurinol was held Assessment & Plan (04/17/2025 4:37 PM CDT): Denies history of gout attack. Home Allopurinol was held Assessment & Plan (04/16/2025 1:42 PM CDT): Denies history of gout attack. Home Allopurinol was held Assessment & Plan (04/15/2025 8:16 AM CDT): Denies history of gout attack. Home Allopurinol was held Assessment & Plan (04/14/2025 8:46 AM CDT): Denies history of gout attack. Home Allopurinol was held Assessment & Plan (04/13/2025 9:00 AM CDT): Denies history of gout attack. Home Allopurinol was held Assessment & Plan (04/12/2025 12:46 PM CDT): Denies history of gout attack. Home Allopurinol was held Assessment & Plan (04/11/2025 11:36 AM CDT): Denies history of gout attack. Home Allopurinol was held Assessment & Plan (04/10/2025 4:18 PM CDT): Denies history of gout attack. Home Allopurinol was held Assessment & Plan (04/09/2025 9:12 AM CDT): Denies history of gout attack. Home Allopurinol was held Assessment & Plan (04/08/2025 12:13 PM CDT): Denies history of gout attack. Home Allopurinol was held Assessment & Plan (04/07/2025 11:34 AM CDT): Denies history of gout attack. Home Allopurinol was held Assessment & Plan (04/06/2025 10:54 AM CDT): Denies history of gout attack. Home Allopurinol was held Assessment & Plan (04/05/2025 12:28 PM CDT): Denies history of gout attack. Home Allopurinol was held Assessment & Plan (04/04/2025 11:26 AM CDT): Denies history of gout attack. Home Allopurinol was held Assessment & Plan (04/03/2025 11:53 AM CDT): Denies history of gout attack. Home Allopurinol was held Assessment & Plan (04/02/2025 10:42 AM CDT): Denies history of gout attack. Home Allopurinol was held Assessment & Plan (04/01/2025 7:24 AM CDT): Denies history of gout attack. Home Allopurinol was held Assessment & Plan (03/31/2025 2:26 PM CDT): Denies history of gout attack. Home Allopurinol was held SALINA (acute kidney injury) 03/31/2025 Assessment & Plan (05/04/2025 10:32 AM CDT): RESOLVED Suspect ATN due to shock. Creatinine peaked at 1.88 6/10, now normalized - Avoid nephrotoxins, renal dose meds --Replace electrolytes as needed, monitor with lasix 7/15 GFR 79, creat clearance 65.6 Assessment & Plan (05/03/2025 1:22 PM CDT): RESOLVED Suspect ATN due to shock. Creatinine peaked at 1.88 6/10, now normalized - Avoid nephrotoxins, renal dose meds --Replace electrolytes as needed, monitor with lasix 7/15 GFR 79, creat clearance 65.6 Assessment & Plan (05/02/2025 11:01 AM CDT): RESOLVED Suspect ATN due to shock. Creatinine peaked at 1.88 6/10, now normalized - Avoid nephrotoxins, renal dose meds --Replace electrolytes as needed, monitor with lasix 7/15 GFR 79, creat clearance 65.6 Assessment & Plan (04/30/2025 5:18 PM CDT): RESOLVED Suspect ATN due to shock. Creatinine peaked at 1.88 6/10, now normalized - Avoid nephrotoxins, renal dose meds --Replace electrolytes as needed, monitor with lasix 7/15 GFR 79, creat clearance 65.6 Assessment & Plan (04/29/2025 10:33 AM CDT): Suspect ATN due to shock. Improving creatinine, Na mildly elevated - Avoid nephrotoxins, renal dose meds - Monitor UOP - 6/20 Cr=0.76 - 7/10 Cr=1.20-hold lasix and DC losartan - 04/26 supplement K and Mg Assessment & Plan (04/28/2025 11:48 AM CDT): Suspect ATN due to shock. Improving creatinine, Na mildly elevated - Avoid nephrotoxins, renal dose meds - Monitor UOP - 6/20 Cr=0.76 - 7/10 Cr=1.20-hold lasix and DC losartan - 04/26 supplement K and Mg Assessment & Plan (04/27/2025 9:58 AM CDT): Suspect ATN due to shock. Improving creatinine, Na mildly elevated - Avoid nephrotoxins, renal dose meds - Monitor UOP - 6/20 Cr=0.76 - 7/10 Cr=1.20-hold lasix and DC losartan - 04/26 supplement K and Mg Assessment & Plan (04/26/2025 10:07 AM CDT): Suspect ATN due to shock. Improving creatinine, Na mildly elevated - Avoid nephrotoxins, renal dose meds - Monitor UOP - 6/20 Cr=0.76 - 7/10 Cr=1.20-hold lasix and DC losartan - 04/26 supplement K and Mg Assessment & Plan (04/25/2025 10:43 AM CDT): Suspect ATN due to shock. Improving creatinine, Na mildly elevated - Avoid nephrotoxins, renal dose meds - Monitor UOP - 6/20 Cr=0.76 - 7/10 Cr=1.20-hold lasix and DC losartan Assessment & Plan (04/24/2025 11:01 AM CDT): Suspect ATN due to shock. Improving creatinine, Na mildly elevated - Avoid nephrotoxins, renal dose meds - Monitor UOP - 6/20 Cr=0.76 Assessment & Plan (04/23/2025 2:21 PM CDT): Suspect ATN due to shock. Improving creatinine, Na mildly elevated - Avoid nephrotoxins, renal dose meds - Monitor UOP - 6/20 Cr=0.76 Assessment & Plan (04/23/2025 6:07 AM CDT): Suspect ATN due to shock. Improving creatinine, Na mildly elevated - Avoid nephrotoxins, renal dose meds - Monitor UOP - 6/20 Cr=0.76 Assessment & Plan (04/21/2025 9:58 AM CDT): Suspect ATN due to shock. Improving creatinine, Na mildly elevated - Avoid nephrotoxins, renal dose meds - Monitor UOP - 6/20 Cr=0.76 Assessment & Plan (04/20/2025 2:26 PM CDT): Suspect ATN due to shock. Improving creatinine, Na mildly elevated - Avoid nephrotoxins, renal dose meds - Monitor UOP - 6/20 Cr=0.76 Assessment & Plan (04/19/2025 8:18 PM CDT): Suspect ATN due to shock. Improving creatinine, Na mildly elevated - Avoid nephrotoxins, renal dose meds - Monitor UOP - 6/20 Cr=0.76 Assessment & Plan (04/18/2025 4:09 PM CDT): Suspect ATN due to shock. Improving creatinine, Na mildly elevated - Avoid nephrotoxins, renal dose meds - Monitor UOP, daily BMP - 6/20 Cr=0.76 Assessment & Plan (04/17/2025 4:37 PM CDT): Suspect ATN due to shock. Improving creatinine, Na mildly elevated - Avoid nephrotoxins, renal dose meds - Monitor UOP, daily BMP - 6/20 Cr=0.76 Assessment & Plan (04/16/2025 1:42 PM CDT): Suspect ATN due to shock. Improving creatinine, Na mildly elevated - Avoid nephrotoxins, renal dose meds - Monitor UOP, daily BMP - 6/20 Cr=0.76 Assessment & Plan (04/15/2025 8:16 AM CDT): Suspect ATN due to shock. Improving creatinine, Na mildly elevated - Avoid nephrotoxins, renal dose meds - Monitor UOP, daily BMP - 6/20 Cr=0.76 Assessment & Plan (04/14/2025 8:46 AM CDT): Suspect ATN due to shock. Improving creatinine, Na mildly elevated - Avoid nephrotoxins, renal dose meds - Monitor UOP, daily BMP - 6/20 Cr=0.76 Assessment & Plan (04/13/2025 9:00 AM CDT): Suspect ATN due to shock. Improving creatinine, Na mildly elevated - Avoid nephrotoxins, renal dose meds - Monitor UOP, daily BMP - 6/20 Cr=0.76 Assessment & Plan (04/12/2025 12:46 PM CDT): Suspect ATN due to shock. Improving creatinine, Na mildly elevated - Avoid nephrotoxins, renal dose meds - Monitor UOP, daily BMP - 6/20 Cr=0.76 Assessment & Plan (04/11/2025 11:36 AM CDT): Suspect ATN due to shock. Improving creatinine, Na mildly elevated - Avoid nephrotoxins, renal dose meds - Monitor UOP, daily BMP - 6/20 Cr=0.76 Assessment & Plan (04/10/2025 4:18 PM CDT): Suspect ATN due to shock. Improving creatinine, Na mildly elevated - Avoid nephrotoxins, renal dose meds - Monitor UOP, daily BMP - 6/20 Cr=0.76 Assessment & Plan (04/09/2025 9:12 AM CDT): Suspect ATN due to shock. Improving creatinine, Na mildly elevated - Avoid nephrotoxins, renal dose meds - Monitor UOP, daily BMP - 6/20 Cr=0.76 Assessment & Plan (04/08/2025 12:13 PM CDT): Suspect ATN due to shock. Improving creatinine, Na mildly elevated - Avoid nephrotoxins, renal dose meds - Monitor UOP, daily BMP - 6/20 Cr=0.76 Assessment & Plan (04/07/2025 11:34 AM CDT): Suspect ATN due to shock. Improving creatinine, Na mildly elevated - Avoid nephrotoxins, renal dose meds - Monitor UOP, daily BMP - 6/20 Cr=0.76 Assessment & Plan (04/06/2025 10:54 AM CDT): Suspect ATN due to shock. Improving creatinine, Na mildly elevated - Avoid nephrotoxins, renal dose meds - Monitor UOP, daily BMP - 04/05 Cr=0.76 Assessment & Plan (04/05/2025 12:28 PM CDT): Suspect ATN due to shock. Improving creatinine, Na mildly elevated - Avoid nephrotoxins, renal dose meds - Monitor UOP, daily BMP - 04/05 Cr=0.76 Assessment & Plan (04/04/2025 11:26 AM CDT): Suspect ATN due to shock. Improving creatinine, Na mildly elevated - Avoid nephrotoxins, renal dose meds - Monitor UOP, daily BMP Assessment & Plan (04/03/2025 11:53 AM CDT): Suspect ATN due to shock. Improving creatinine, Na mildly elevated - Avoid nephrotoxins, renal dose meds - Monitor UOP, daily BMP Assessment & Plan (04/02/2025 10:42 AM CDT): Suspect ATN due to shock. Improving creatinine, Na mildly elevated - Avoid nephrotoxins, renal dose meds - Monitor UOP, daily BMP Assessment & Plan (04/01/2025 7:24 AM CDT): Suspect ATN due to shock. Improving creatinine, Na mildly elevated - Avoid nephrotoxins, renal dose meds - Monitor UOP, daily BMP Assessment & Plan (03/31/2025 2:26 PM CDT): Suspect ATN due to shock. Improving creatinine, Na mildly elevated - Avoid nephrotoxins, renal dose meds - Monitor UOP, daily BMP Acute on chronic respiratory failure 03/31/2025 Assessment & Plan (05/10/2025 7:59 AM CDT): IMPROVING Acute respiratory failure multifactorial. Now off oxygen Baseline Asthma and ERIKA on CPAP. Post shock/PEA arrest requiring intubation 03/26-03/30 c/b pneumonia bilateral pneumothorax. 2/2 compressions after PEA arrest 03/27 s/p placement of bilateral chest tubes - chest tubes removed 04/02 & F/U Chest x-ray stable Chest tube management-now Dc'd 05/02 Increased diuretics from 40 lasix po BID to 40 IV BID 05/02 Bilateral pleural effusions on x-ray 05/01 and new oxygen requirement 05/02. 1.3 L out, goal 1.5-2 L but overall +220ml. Repeat chest x-ray decreased effusions. Restricting fluids to <1.5L. 05/03 Urine output 950 documented but blood pressure stable with diuresis, improving. Follow electrolytes, replaced mag and potassium as needed 05/04 Increased Lasix from 40 BID to 60 BID IV 05/05 Lasix 80mg PO BID PLAN - Home inhalers: Breo in place of Dulera (not in formulary), continue scheduled albuterol nebs - Resume home [id number] adherent to treatment - IS --Follow up CXR in AM, lung sounds decreased on the RLL --Follow up CT if new symptoms Assessment & Plan (05/09/2025 7:59 AM CDT): IMPROVING Acute respiratory failure multifactorial. Now off oxygen Baseline Asthma and ERIKA on CPAP. Post shock/PEA arrest requiring intubation 03/26-03/30 c/b pneumonia bilateral pneumothorax. 2/2 compressions after PEA arrest 03/27 s/p placement of bilateral chest tubes - chest tubes removed 04/02 & F/U Chest x-ray stable Chest tube management-now Dc'd 05/02 Increased diuretics from 40 lasix po BID to 40 IV BID 05/02 Bilateral pleural effusions on x-ray 05/01 and new oxygen requirement 05/02. 1.3 L out, goal 1.5-2 L but overall +220ml. Repeat chest x-ray decreased effusions. Restricting fluids to <1.5L. 05/03 Urine output 950 documented but blood pressure stable with diuresis, improving. Follow electrolytes, replaced mag and potassium as needed 05/04 Increased Lasix from 40 BID to 60 BID IV 05/05 Lasix 80mg PO BID PLAN - Home inhalers: Breo in place of Dulera (not in formulary), continue scheduled albuterol nebs - Resume home [id number] adherent to treatment - IS --Follow up CXR in AM, lung sounds decreased on the RLL --Follow up CT if new symptoms Assessment & Plan (05/08/2025 7:40 AM CDT): IMPROVING Acute respiratory failure multifactorial. Now off oxygen Baseline Asthma and ERIKA on CPAP. Post shock/PEA arrest requiring intubation 03/26-03/30 c/b pneumonia bilateral pneumothorax. 2/2 compressions after PEA arrest 03/27 s/p placement of bilateral chest tubes - chest tubes removed 04/02 & F/U Chest x-ray stable Chest tube management-now Dc'd 05/02 Increased diuretics from 40 lasix po BID to 40 IV BID 05/02 Bilateral pleural effusions on x-ray 05/01 and new oxygen requirement 05/02. 1.3 L out, goal 1.5-2 L but overall +220ml. Repeat chest x-ray decreased effusions. Restricting fluids to <1.5L. 05/03 Urine output 950 documented but blood pressure stable with diuresis, improving. Follow electrolytes, replaced mag and potassium as needed 05/04 Increased Lasix from 40 BID to 60 BID IV 05/05 Lasix 80mg PO BID PLAN - Home inhalers: Breo in place of Dulera (not in formulary), continue scheduled albuterol nebs - Resume home [id number] adherent to treatment - IS --Follow up CXR in AM, lung sounds decreased on the RLL --Follow up CT if new symptoms Assessment & Plan (05/07/2025 7:31 AM CDT): IMPROVING Acute respiratory failure multifactorial. Now off oxygen Baseline Asthma and ERIKA on CPAP. Post shock/PEA arrest requiring intubation 03/26-03/30 c/b pneumonia bilateral pneumothorax. 2/2 compressions after PEA arrest 03/27 s/p placement of bilateral chest tubes - chest tubes removed 04/02 & F/U Chest x-ray stable Chest tube management-now Dc'd 05/02 Increased diuretics from 40 lasix po BID to 40 IV BID 05/02 Bilateral pleural effusions on x-ray 05/01 and new oxygen requirement 05/02. 1.3 L out, goal 1.5-2 L but overall +220ml. Repeat chest x-ray decreased effusions. Restricting fluids to <1.5L. 05/03 Urine output 950 documented but blood pressure stable with diuresis, improving. Follow electrolytes, replaced mag and potassium as needed 05/04 Increased Lasix from 40 BID to 60 BID IV 05/05 Lasix 80mg PO BID PLAN - Home inhalers: Breo in place of Dulera (not in formulary), continue scheduled albuterol nebs - Resume home [id number] adherent to treatment - IS --Follow up CXR in AM, lung sounds decreased on the RLL --Follow up CT if new symptoms Assessment & Plan (05/06/2025 4:49 PM CDT): IMPROVING Acute respiratory failure multifactorial. Now off oxygen Baseline Asthma and ERIKA on CPAP. Post shock/PEA arrest requiring intubation 03/26-03/30 c/b pneumonia bilateral pneumothorax. 2/2 compressions after PEA arrest 03/27 s/p placement of bilateral chest tubes - chest tubes removed 04/02 & F/U Chest x-ray stable Chest tube management-now Dc'd 05/02 Increased diuretics from 40 lasix po BID to 40 IV BID 05/02 Bilateral pleural effusions on x-ray 05/01 and new oxygen requirement 05/02. 1.3 L out, goal 1.5-2 L but overall +220ml. Repeat chest x-ray decreased effusions. Restricting fluids to <1.5L. 05/03 Urine output 950 documented but blood pressure stable with diuresis, improving. Follow electrolytes, replaced mag and potassium as needed 05/04 Increased Lasix from 40 BID to 60 BID IV 05/05 Lasix 80mg PO BID PLAN - Home inhalers: Breo in place of Dulera (not in formulary), continue scheduled albuterol nebs - Resume home [id number] adherent to treatment - IS --Follow up CXR in AM, lung sounds decreased on the RLL --Follow up CT if new symptoms Assessment & Plan (05/05/2025 3:50 PM CDT): IMPROVING Acute respiratory failure multifactorial. Now off oxygen Baseline Asthma and ERIKA on CPAP. Post shock/PEA arrest requiring intubation 03/26-03/30 c/b pneumonia bilateral pneumothorax. 2/2 compressions after PEA arrest 03/27 s/p placement of bilateral chest tubes - chest tubes removed 04/02 & F/U Chest x-ray stable Chest tube management-now Dc'd 05/02 Increased diuretics from 40 lasix po BID to 40 IV BID 05/02 Bilateral pleural effusions on x-ray 05/01 and new oxygen requirement 05/02. 1.3 L out, goal 1.5-2 L but overall +220ml. Repeat chest x-ray decreased effusions. Restricting fluids to <1.5L. 05/03 Urine output 950 documented but blood pressure stable with diuresis, improving. Follow electrolytes, replaced mag and potassium as needed 05/04 Increased Lasix from 40 BID to 60 BID IV 05/05 Lasix 80mg PO BID PLAN - Home inhalers: Breo in place of Dulera (not in formulary), continue scheduled albuterol nebs - Resume home [id number] adherent to treatment - IS --Follow up CXR in AM, lung sounds decreased on the RLL --Follow up CT if new symptoms Assessment & Plan (05/04/2025 10:31 AM CDT): Baseline Asthma and ERIKA on CPAP. Post shock/PEA arrest requiring intubation 03/26-03/30 c/b pneumonia bilateral pneumothorax - chest tube management-now DC'd - Home inhalers: Breo in place of Dulera (not in formulary), continue scheduled albuterol nebs - Resume home [id number] adherent to treatment - IS -Increased O2 requirement overnight, 2L for sat's 90% 05/01 at rest. Weaned off during the day but 88% again overnight so back on 2L 05/02 Increased diuretics from 40 lasix po BID to 40 IV BID 05/02 Bilateral pleural effusions on x-ray 05/01 and new oxygen requirement 05/02. 1.3 L out, goal 1.5-2 L but overall +220ml. Repeat chest x-ray decreased effusions. Restricting fluids to <1.5L. 05/03 Urine output 950 documented but blood pressure stable with diuresis, improving. Follow electrolytes, replaced mag and potassium as needed PLAN --Continue scheduled potassium 10meq BID --Mag 1.5<1.8 after 2G. Continue to follow mag. Receiving mag 400mg daily Assessment & Plan (05/03/2025 1:23 PM CDT): Baseline Asthma and ERIKA on CPAP. Post shock/PEA arrest requiring intubation 03/26-03/30 c/b pneumonia bilateral pneumothorax - chest tube management-now DC'd - Home inhalers: Breo in place of Dulera (not in formulary), continue scheduled albuterol nebs - Resume home [id number] adherent to treatment - IS -Increased O2 requirement overnight, 2L for sat's 90% 05/01 at rest. Weaned off during the day but 88% again overnight so back on 2L -Increased diuretics from 40 lasix po BID to 40 IV BID 05/02 -Bilateral pleural effusions on x-ray 05/01 and new oxygen requirement 05/02. 1.3 L out, goal 1.5-2 L but overall +220ml. Repeating chest x-ray today. Restricting fluids to <1.5L. May need to increase IV diuretics if blood pressure tolerates, 102/58 today (05/03) Thoracentesis if persistent effusion despite diuretics --Follow electrolytes, replace mag and potassium as needed --Scheduled potassium 10meq BID --Mag 1.5<1.8 after 2G. Continue to follow mag. Receiving mag 400mg daily Assessment & Plan (05/02/2025 1:13 PM CDT): Baseline Asthma and ERIKA on CPAP. Post shock/PEA arrest requiring intubation 03/26-03/30 c/b pneumonia bilateral pneumothorax - chest tube management-now DC'd - Home inhalers: Breo in place of Dulera (not in formulary), continue scheduled albuterol nebs - Resume home [id number] adherent to treatment - IS -Increased O2 requirement overnight, 2L for sat's 90's at rest. -Increased diuretics from 40 lasix po BID to 40 IV BID -Bilateral pleural effusions on x-ray 05/01 and new oxygen requirement this morning. Repeat x-ray after diuresing. 1.1 L out yesterday, goal 1.5-2 L --Follow electrolytes, replace mag and potassium as needed --Scheduled potassium 10meq BID --Mag 1.5<1.8 after 2G. Additional 2G IV today Assessment & Plan (04/30/2025 5:18 PM CDT): Baseline Asthma and ERIKA on CPAP. Post shock/PEA arrest requiring intubation 03/26-03/30 c/b pneumonia bilateral pneumothorax - chest tube management-now DC'd - Home inhalers: Breo in place of Dulera (not in formulary), continue scheduled albuterol nebs - Resume home [id number] adherent to treatment - IS Assessment & Plan (04/29/2025 10:33 AM CDT): Baseline Asthma and ERIKA on CPAP. Post shock/PEA arrest requiring intubation 03/26-03/30 c/b pneumonia bilateral pneumothorax - chest tube management-now DC'd - Home inhalers: Breo in place of Dulera (not in formulary), continue scheduled albuterol nebs - Resume home [id number] adherent to treatment - IS Assessment & Plan (04/28/2025 11:48 AM CDT): Baseline Asthma and ERIKA on CPAP. Post shock/PEA arrest requiring intubation 03/26-03/30 c/b pneumonia bilateral pneumothorax - chest tube management-now DC'd - Home inhalers: Breo in place of Dulera (not in formulary), continue scheduled albuterol nebs - Resume home [id number] adherent to treatment - IS Assessment & Plan (04/27/2025 9:58 AM CDT): Baseline Asthma and ERIKA on CPAP. Post shock/PEA arrest requiring intubation 03/26-03/30 c/b pneumonia bilateral pneumothorax - chest tube management-now DC'd - Home inhalers: Breo in place of Dulera (not in formulary), continue scheduled albuterol nebs - Resume home [id number] adherent to treatment - IS Assessment & Plan (04/26/2025 10:07 AM CDT): Baseline Asthma and ERIKA on CPAP. Post shock/PEA arrest requiring intubation 03/26-03/30 c/b pneumonia bilateral pneumothorax - chest tube management-now DC'd - Home inhalers: Breo in place of Dulera (not in formulary), continue scheduled albuterol nebs - Resume home [id number] adherent to treatment - IS Assessment & Plan (04/25/2025 10:43 AM CDT): Baseline Asthma and ERIKA on CPAP. Post shock/PEA arrest requiring intubation 03/26-03/30 c/b pneumonia bilateral pneumothorax - chest tube management-now DC'd - Home inhalers: Breo in place of Dulera (not in formulary), continue scheduled albuterol nebs - Resume home [id number] adherent to treatment - IS Assessment & Plan (04/24/2025 11:01 AM CDT): Baseline Asthma and ERIKA on CPAP. Post shock/PEA arrest requiring intubation 03/26-03/30 c/b pneumonia bilateral pneumothorax - chest tube management-now DC'd - Home inhalers: Breo in place of Dulera (not in formulary), continue scheduled albuterol nebs - Resume home [id number] adherent to treatment - IS Assessment & Plan (04/23/2025 2:21 PM CDT): Baseline Asthma and ERIKA on CPAP. Post shock/PEA arrest requiring intubation 03/26-03/30 c/b pneumonia bilateral pneumothorax - chest tube management-now DC'd - Home inhalers: Breo in place of Dulera (not in formulary), continue scheduled albuterol nebs - Resume home [id number] adherent to treatment - IS Assessment & Plan (04/23/2025 6:07 AM CDT): Baseline Asthma and ERIKA on CPAP. Post shock/PEA arrest requiring intubation 03/26-03/30 c/b pneumonia bilateral pneumothorax - chest tube management-now DC'd - Home inhalers: Breo in place of Dulera (not in formulary), continue scheduled albuterol nebs - Resume home [id number] adherent to treatment - IS Assessment & Plan (04/21/2025 8:10 PM CDT): Baseline Asthma and ERIKA on CPAP. Post shock/PEA arrest requiring intubation 03/26-03/30 c/b pneumonia bilateral pneumothorax - chest tube management-now DC'd - Home inhalers: Breo in place of Dulera (not in formulary), continue scheduled albuterol nebs - Resume home [id number] adherent to treatment - IS Assessment & Plan (04/20/2025 2:26 PM CDT): Baseline Asthma and ERIKA on CPAP. Post shock/PEA arrest requiring intubation 03/26-03/30 c/b pneumonia bilateral pneumothorax - chest tube management-now DC'd - Home inhalers: Breo in place of Dulera (not in formulary), continue scheduled albuterol nebs - Resume home auto-CPAP - IS Assessment & Plan (04/19/2025 12:35 PM CDT): Baseline Asthma and ERIKA on CPAP. Post shock/PEA arrest requiring intubation 03/26-03/30 c/b pneumonia bilateral pneumothorax - chest tube management-now DC'd - Home inhalers: Breo in place of Dulera (not in formulary), continue scheduled albuterol nebs - Resume home auto-CPAP - IS Assessment & Plan (04/18/2025 4:09 PM CDT): Baseline Asthma and ERIKA on CPAP. Post shock/PEA arrest requiring intubation 03/26-03/30 c/b pneumonia bilateral pneumothorax - chest tube management-now DC'd - Home inhalers: Breo in place of Dulera (not in formulary), continue scheduled albuterol nebs - Resume home auto-CPAP - IS Assessment & Plan (04/17/2025 4:37 PM CDT): Baseline Asthma and ERIKA on CPAP. Post shock/PEA arrest requiring intubation 03/26-03/30 c/b pneumonia bilateral pneumothorax - chest tube management-now DC'd - Home inhalers: Breo in place of Dulera (not in formulary), continue scheduled albuterol nebs - Resume home auto-CPAP - IS Assessment & Plan (04/16/2025 1:42 PM CDT): Baseline Asthma and ERIKA on CPAP. Post shock/PEA arrest requiring intubation 03/26-03/30 c/b pneumonia bilateral pneumothorax - chest tube management-now DC'd - Home inhalers: Breo in place of Dulera (not in formulary), continue scheduled albuterol nebs - Resume home auto-CPAP - IS Assessment & Plan (04/15/2025 12:00 PM CDT): Baseline Asthma and ERIKA on CPAP. Post shock/PEA arrest requiring intubation 03/26-03/30 c/b pneumonia bilateral pneumothorax - chest tube management-now DC'd - Home inhalers: Breo in place of Dulera (not in formulary), continue scheduled albuterol nebs - Resume home auto-CPAP - IS Assessment & Plan (04/14/2025 8:46 AM CDT): Baseline Asthma and ERIKA on CPAP. Post shock/PEA arrest requiring intubation 03/26-03/30 c/b pneumonia bilateral pneumothorax - chest tube management-now DC'd - Home inhalers: Breo in place of Dulera (not in formulary), continue prn albuterol-uses nebs-says MDI not working - Resume home auto-CPAP - IS Assessment & Plan (04/13/2025 9:00 AM CDT): Baseline Asthma and ERIKA on CPAP. Post shock/PEA arrest requiring intubation 03/26-03/30 c/b bilateral pneumothorax - chest tube management-now DC'd - continue inhalers - IS - Resume home auto-CPAP Assessment & Plan (04/12/2025 12:46 PM CDT): Baseline Asthma and ERIKA on CPAP. Post shock/PEA arrest requiring intubation 03/26-03/30 c/b bilateral pneumothorax - chest tube management-now DC'd - continue inhalers - IS - Resume home auto-CPAP Assessment & Plan (04/11/2025 11:36 AM CDT): Baseline Asthma and ERIKA on CPAP. Post shock/PEA arrest requiring intubation 03/26-03/30 c/b bilateral pneumothorax - chest tube management-now DC'd - continue inhalers - IS - Resume home auto-CPAP Assessment & Plan (04/10/2025 4:18 PM CDT): Baseline Asthma and ERIKA on CPAP. Post shock/PEA arrest requiring intubation 03/26-03/30 c/b bilateral pneumothorax - chest tube management-now DC'd - continue inhalers - IS - Resume home auto-CPAP Assessment & Plan (04/09/2025 9:12 AM CDT): Baseline Asthma and ERIKA on CPAP. Post shock/PEA arrest requiring intubation 03/26-03/30 c/b bilateral pneumothorax - chest tube management-now DC'd - continue inhalers - IS - Resume home auto-CPAP Assessment & Plan (04/08/2025 12:13 PM CDT): Baseline Asthma and ERIKA on CPAP. Post shock/PEA arrest requiring intubation 03/26-03/30 c/b bilateral pneumothorax - chest tube management-now DC'd - continue inhalers - IS - Resume home auto-CPAP Assessment & Plan (04/07/2025 11:34 AM CDT): Baseline Asthma and ERIKA on CPAP. Post shock/PEA arrest requiring intubation 03/26-03/30 c/b bilateral pneumothorax - chest tube management-now DC'd - continue inhalers - IS - Resume home auto-CPAP Assessment & Plan (04/06/2025 10:54 AM CDT): Baseline Asthma and ERIKA on CPAP. Post shock/PEA arrest requiring intubation 03/26-03/30 c/b bilateral pneumothorax - chest tube management-now DC'd - continue inhalers - IS - Resume home auto-CPAP Assessment & Plan (04/05/2025 12:28 PM CDT): Baseline Asthma and ERIKA on CPAP. Post shock/PEA arrest requiring intubation 03/26-03/30 c/b bilateral pneumothorax - chest tube management-now DC'd - continue inhalers - IS - Resume home auto-CPAP Assessment & Plan (04/04/2025 11:26 AM CDT): Baseline Asthma and ERIKA on CPAP. Post shock/PEA arrest requiring intubation 03/26-6/14 c/b bilateral pneumothorax - chest tube management-now DC'd - continue inhalers - IS - Resume home auto-CPAP Assessment & Plan (04/03/2025 11:53 AM CDT): Baseline Asthma and ERIKA on CPAP. Post shock/PEA arrest requiring intubation 03/26-03/30 c/b bilateral pneumothorax - chest tube management-now DC'd - continue inhalers - IS - Resume home auto-CPAP Assessment & Plan (04/02/2025 10:42 AM CDT): Baseline Asthma and ERIKA on CPAP. Post shock/PEA arrest requiring intubation 03/26-03/30 c/b bilateral pneumothorax - chest tube management - continue inhalers - IS - Resume home auto-CPAP Assessment & Plan (04/01/2025 1:08 PM CDT): Baseline Asthma and ERIKA on CPAP. Post shock/PEA arrest requiring intubation 03/26-03/30 c/b bilateral pneumothorax - chest tube management - continue inhalers - IS - Resume home auto-CPAP Assessment & Plan (03/31/2025 2:26 PM CDT): Baseline Asthma. Post shock/PEA arrest requiring intubation 03/26-03/30 c/b bilateral pneumothorax - chest tube management - continue inhalers - IS Hematochezia 03/26/2025 Assessment & Plan (05/10/2025 7:59 AM CDT): Patient with bloody liquid from rectum late afternoon 04/07. Following Hgb 10.4->10.1->9.9->9.4->9.6. CTA of abd-pelvis did not reveal active bleeding source but lots of stool and what appeared to be stool ball in rectum. Digital exam did not reach stool but large amount of clotted blood in rectum. Start miralax TID and try to clear stool. GI consult on board with no plan to scope. - 04/08 given tap water and mineral oil enema, but no BM - 04/09 check KUB: Stool is again noted within the rectum, huge but bloody bowel movement after hypaque enema, Hgb trended down to 6.7, receive 1 unit prbc - 04/10 Hgb 8.3, sigmoidoscopy Preparation of the colon was inadequate. Blood and clots seen in recto-sigmoid colon. Ulcerated, ooozing mucosa in the distal rectum. Treated with goldprobe. Hemostatic spray applied. Avoid AC and ASA for 2 days per GI. Avoid enema, continue PO bowel regimen - 04/11 continued rectal bleed, Hgb down to 6.6, given prbc, d/w GI and consulted CRS - limited options, gelfoam soaked with epi plug per rectum applied, not surgical candidate. Continue huge/large bleeding with dark blood and large clots, given 3 units prbc and 1 unit platelet to help with hemostasis (as still within 5 days after Plavix held), Hgb maintained between 8-9.6, BP stable. See significant event notes 04/12 Colonoscopy done: Clotted blood was found in the rectum. A large area of ulcerated mucosa was found in the rectum with adherent clot. Oozing was present. The clot was not removed. To stop active bleeding, hemostatic spray was deployed. Two sprays were applied. There was no bleeding at the end of the procedure. Multiple small-mouthed diverticula were found in the sigmoid colon. Multiple polyps were seen in the colon throughout the procedure. Avoid fecal management devices or any enemas x 48 hours. Consider sucralfate enemas after 48 hours to aid in ulcer healing. Repeat colonoscopy non-urgently when patient is out of the hospital for polypectomy. Monitor, start clear diet, continue every 6 hrs CBC 04/15 Still with moderate amount of bleeding with dark blood and clots, Hgb however is stable, noticed slowed down with NPO, patient no appetite and prefer to be NPO for now and monitor Gradually increased diet from 04/16-04/24 Consider resumption of plavix. Cardiology consult advised no plavix, start ECASA 81mg Blood count stable since starting aspirin Planning eventual polypectomy with GI as an outpatient. Had a BM 05/05 --Continue Miralax/senna prn Assessment & Plan (05/09/2025 7:59 AM CDT): Patient with bloody liquid from rectum late afternoon 04/07. Following Hgb 10.4->10.1->9.9->9.4->9.6. CTA of abd-pelvis did not reveal active bleeding source but lots of stool and what appeared to be stool ball in rectum. Digital exam did not reach stool but large amount of clotted blood in rectum. Start miralax TID and try to clear stool. GI consult on board with no plan to scope. - 04/08 given tap water and mineral oil enema, but no BM - 04/09 check KUB: Stool is again noted within the rectum, huge but bloody bowel movement after hypaque enema, Hgb trended down to 6.7, receive 1 unit prbc - 04/10 Hgb 8.3, sigmoidoscopy Preparation of the colon was inadequate. Blood and clots seen in recto-sigmoid colon. Ulcerated, ooozing mucosa in the distal rectum. Treated with goldprobe. Hemostatic spray applied. Avoid AC and ASA for 2 days per GI. Avoid enema, continue PO bowel regimen - 04/11 continued rectal bleed, Hgb down to 6.6, given prbc, d/w GI and consulted CRS - limited options, gelfoam soaked with epi plug per rectum applied, not surgical candidate. Continue huge/large bleeding with dark blood and large clots, given 3 units prbc and 1 unit platelet to help with hemostasis (as still within 5 days after Plavix held), Hgb maintained between 8-9.6, BP stable. See significant event notes 04/12 Colonoscopy done: Clotted blood was found in the rectum. A large area of ulcerated mucosa was found in the rectum with adherent clot. Oozing was present. The clot was not removed. To stop active bleeding, hemostatic spray was deployed. Two sprays were applied. There was no bleeding at the end of the procedure. Multiple small-mouthed diverticula were found in the sigmoid colon. Multiple polyps were seen in the colon throughout the procedure. Avoid fecal management devices or any enemas x 48 hours. Consider sucralfate enemas after 48 hours to aid in ulcer healing. Repeat colonoscopy non-urgently when patient is out of the hospital for polypectomy. Monitor, start clear diet, continue every 6 hrs CBC 04/15 Still with moderate amount of bleeding with dark blood and clots, Hgb however is stable, noticed slowed down with NPO, patient no appetite and prefer to be NPO for now and monitor Gradually increased diet from 04/16-04/24 Consider resumption of plavix. Cardiology consult advised no plavix, start ECASA 81mg Blood count stable since starting aspirin Planning eventual polypectomy with GI as an outpatient. Had a BM 05/05 --Continue Miralax/senna prn Assessment & Plan (05/08/2025 7:40 AM CDT): Patient with bloody liquid from rectum late afternoon 04/07. Following Hgb 10.4->10.1->9.9->9.4->9.6. CTA of abd-pelvis did not reveal active bleeding source but lots of stool and what appeared to be stool ball in rectum. Digital exam did not reach stool but large amount of clotted blood in rectum. Start miralax TID and try to clear stool. GI consult on board with no plan to scope. - 04/08 given tap water and mineral oil enema, but no BM - 04/09 check KUB: Stool is again noted within the rectum, huge but bloody bowel movement after hypaque enema, Hgb trended down to 6.7, receive 1 unit prbc - 04/10 Hgb 8.3, sigmoidoscopy Preparation of the colon was inadequate. Blood and clots seen in recto-sigmoid colon. Ulcerated, ooozing mucosa in the distal rectum. Treated with goldprobe. Hemostatic spray applied. Avoid AC and ASA for 2 days per GI. Avoid enema, continue PO bowel regimen - 04/11 continued rectal bleed, Hgb down to 6.6, given prbc, d/w GI and consulted CRS - limited options, gelfoam soaked with epi plug per rectum applied, not surgical candidate. Continue huge/large bleeding with dark blood and large clots, given 3 units prbc and 1 unit platelet to help with hemostasis (as still within 5 days after Plavix held), Hgb maintained between 8-9.6, BP stable. See significant event notes 04/12 Colonoscopy done: Clotted blood was found in the rectum. A large area of ulcerated mucosa was found in the rectum with adherent clot. Oozing was present. The clot was not removed. To stop active bleeding, hemostatic spray was deployed. Two sprays were applied. There was no bleeding at the end of the procedure. Multiple small-mouthed diverticula were found in the sigmoid colon. Multiple polyps were seen in the colon throughout the procedure. Avoid fecal management devices or any enemas x 48 hours. Consider sucralfate enemas after 48 hours to aid in ulcer healing. Repeat colonoscopy non-urgently when patient is out of the hospital for polypectomy. Monitor, start clear diet, continue every 6 hrs CBC 04/15 Still with moderate amount of bleeding with dark blood and clots, Hgb however is stable, noticed slowed down with NPO, patient no appetite and prefer to be NPO for now and monitor Gradually increased diet from 04/16-04/24 Consider resumption of plavix. Cardiology consult advised no plavix, start ECASA 81mg Blood count stable since starting aspirin Planning eventual polypectomy with GI as an outpatient. Had a BM 05/05 --Continue Miralax/senna prn Assessment & Plan (05/07/2025 7:31 AM CDT): Patient with bloody liquid from rectum late afternoon 04/07. Following Hgb 10.4->10.1->9.9->9.4->9.6. CTA of abd-pelvis did not reveal active bleeding source but lots of stool and what appeared to be stool ball in rectum. Digital exam did not reach stool but large amount of clotted blood in rectum. Start miralax TID and try to clear stool. GI consult on board with no plan to scope. - 04/08 given tap water and mineral oil enema, but no BM - 04/09 check KUB: Stool is again noted within the rectum, huge but bloody bowel movement after hypaque enema, Hgb trended down to 6.7, receive 1 unit prbc - 04/10 Hgb 8.3, sigmoidoscopy Preparation of the colon was inadequate. Blood and clots seen in recto-sigmoid colon. Ulcerated, ooozing mucosa in the distal rectum. Treated with goldprobe. Hemostatic spray applied. Avoid AC and ASA for 2 days per GI. Avoid enema, continue PO bowel regimen - 04/11 continued rectal bleed, Hgb down to 6.6, given prbc, d/w GI and consulted CRS - limited options, gelfoam soaked with epi plug per rectum applied, not surgical candidate. Continue huge/large bleeding with dark blood and large clots, given 3 units prbc and 1 unit platelet to help with hemostasis (as still within 5 days after Plavix held), Hgb maintained between 8-9.6, BP stable. See significant event notes 04/12 Colonoscopy done: Clotted blood was found in the rectum. A large area of ulcerated mucosa was found in the rectum with adherent clot. Oozing was present. The clot was not removed. To stop active bleeding, hemostatic spray was deployed. Two sprays were applied. There was no bleeding at the end of the procedure. Multiple small-mouthed diverticula were found in the sigmoid colon. Multiple polyps were seen in the colon throughout the procedure. Avoid fecal management devices or any enemas x 48 hours. Consider sucralfate enemas after 48 hours to aid in ulcer healing. Repeat colonoscopy non-urgently when patient is out of the hospital for polypectomy. Monitor, start clear diet, continue every 6 hrs CBC 04/15 Still with moderate amount of bleeding with dark blood and clots, Hgb however is stable, noticed slowed down with NPO, patient no appetite and prefer to be NPO for now and monitor Gradually increased diet from 04/16-04/24 Consider resumption of plavix. Cardiology consult advised no plavix, start ECASA 81mg Blood count stable since starting aspirin Planning eventual polypectomy with GI as an outpatient. Had a BM 05/05 --Continue Miralax/senna prn Assessment & Plan (05/06/2025 4:49 PM CDT): Patient with bloody liquid from rectum late afternoon 04/07. Following Hgb 10.4->10.1->9.9->9.4->9.6. CTA of abd-pelvis did not reveal active bleeding source but lots of stool and what appeared to be stool ball in rectum. Digital exam did not reach stool but large amount of clotted blood in rectum. Start miralax TID and try to clear stool. GI consult on board with no plan to scope. - 04/08 given tap water and mineral oil enema, but no BM - 04/09 check KUB: Stool is again noted within the rectum, huge but bloody bowel movement after hypaque enema, Hgb trended down to 6.7, receive 1 unit prbc - 04/10 Hgb 8.3, sigmoidoscopy Preparation of the colon was inadequate. Blood and clots seen in recto-sigmoid colon. Ulcerated, ooozing mucosa in the distal rectum. Treated with goldprobe. Hemostatic spray applied. Avoid AC and ASA for 2 days per GI. Avoid enema, continue PO bowel regimen - 04/11 continued rectal bleed, Hgb down to 6.6, given prbc, d/w GI and consulted CRS - limited options, gelfoam soaked with epi plug per rectum applied, not surgical candidate. Continue huge/large bleeding with dark blood and large clots, given 3 units prbc and 1 unit platelet to help with hemostasis (as still within 5 days after Plavix held), Hgb maintained between 8-9.6, BP stable. See significant event notes 04/12 Colonoscopy done: Clotted blood was found in the rectum. A large area of ulcerated mucosa was found in the rectum with adherent clot. Oozing was present. The clot was not removed. To stop active bleeding, hemostatic spray was deployed. Two sprays were applied. There was no bleeding at the end of the procedure. Multiple small-mouthed diverticula were found in the sigmoid colon. Multiple polyps were seen in the colon throughout the procedure. Avoid fecal management devices or any enemas x 48 hours. Consider sucralfate enemas after 48 hours to aid in ulcer healing. Repeat colonoscopy non-urgently when patient is out of the hospital for polypectomy. Monitor, start clear diet, continue every 6 hrs CBC 04/15 Still with moderate amount of bleeding with dark blood and clots, Hgb however is stable, noticed slowed down with NPO, patient no appetite and prefer to be NPO for now and monitor Gradually increased diet from 04/16-04/24 Consider resumption of plavix. Cardiology consult advised no plavix, start ECASA 81mg Blood count stable since starting aspirin Planning eventual polypectomy with GI as an outpatient. Had a BM 05/05 --Continue Miralax/senna prn Assessment & Plan (05/05/2025 3:50 PM CDT): Patient with bloody liquid from rectum late afternoon 04/07. Following Hgb 10.4->10.1->9.9->9.4->9.6. CTA of abd-pelvis did not reveal active bleeding source but lots of stool and what appeared to be stool ball in rectum. Digital exam did not reach stool but large amount of clotted blood in rectum. Start miralax TID and try to clear stool. GI consult on board with no plan to scope. - 04/08 given tap water and mineral oil enema, but no BM - 04/09 check KUB: Stool is again noted within the rectum, huge but bloody bowel movement after hypaque enema, Hgb trended down to 6.7, receive 1 unit prbc - 04/10 Hgb 8.3, sigmoidoscopy Preparation of the colon was inadequate. Blood and clots seen in recto-sigmoid colon. Ulcerated, ooozing mucosa in the distal rectum. Treated with goldprobe. Hemostatic spray applied. Avoid AC and ASA for 2 days per GI. Avoid enema, continue PO bowel regimen - 04/11 continued rectal bleed, Hgb down to 6.6, given prbc, d/w GI and consulted CRS - limited options, gelfoam soaked with epi plug per rectum applied, not surgical candidate. Continue huge/large bleeding with dark blood and large clots, given 3 units prbc and 1 unit platelet to help with hemostasis (as still within 5 days after Plavix held), Hgb maintained between 8-9.6, BP stable. See significant event notes 04/12 Colonoscopy done: Clotted blood was found in the rectum. A large area of ulcerated mucosa was found in the rectum with adherent clot. Oozing was present. The clot was not removed. To stop active bleeding, hemostatic spray was deployed. Two sprays were applied. There was no bleeding at the end of the procedure. Multiple small-mouthed diverticula were found in the sigmoid colon. Multiple polyps were seen in the colon throughout the procedure. Avoid fecal management devices or any enemas x 48 hours. Consider sucralfate enemas after 48 hours to aid in ulcer healing. Repeat colonoscopy non-urgently when patient is out of the hospital for polypectomy. Monitor, start clear diet, continue every 6 hrs CBC 04/15 Still with moderate amount of bleeding with dark blood and clots, Hgb however is stable, noticed slowed down with NPO, patient no appetite and prefer to be NPO for now and monitor Gradually increased diet from 04/16-04/24 Consider resumption of plavix. Cardiology consult advised no plavix, start ECASA 81mg Blood count stable since starting aspirin, 8.8-10.2 in the last 4 days, 9.1 today Planning eventual polypectomy with GI as an outpatient. Had a BM 05/05 --Continue Miralax prn Assessment & Plan (05/04/2025 3:57 PM CDT): Patient with bloody liquid from rectum late afternoon 04/07. Following Hgb 10.4->10.1->9.9->9.4->9.6. CTA of abd-pelvis did not reveal active bleeding source but lots of stool and what appeared to be stool ball in rectum. Digital exam did not reach stool but large amount of clotted blood in rectum. Start miralax TID and try to clear stool. GI consult on board with no plan to scope. - 04/08 given tap water and mineral oil enema, but no BM - 04/09 check KUB: Stool is again noted within the rectum, huge but bloody bowel movement after hypaque enema, Hgb trended down to 6.7, receive 1 unit prbc - 04/10 Hgb 8.3, sigmoidoscopy Preparation of the colon was inadequate. Blood and clots seen in recto-sigmoid colon. Ulcerated, ooozing mucosa in the distal rectum. Treated with goldprobe. Hemostatic spray applied. Avoid AC and ASA for 2 days per GI. Avoid enema, continue PO bowel regimen - 04/11 continued rectal bleed, Hgb down to 6.6, given prbc, d/w GI and consulted CRS - limited options, gelfoam soaked with epi plug per rectum applied, not surgical candidate. Continue huge/large bleeding with dark blood and large clots, given 3 units prbc and 1 unit platelet to help with hemostasis (as still within 5 days after Plavix held), Hgb maintained between 8-9.6, BP stable. See significant event notes 04/12 Colonoscopy done: Clotted blood was found in the rectum. A large area of ulcerated mucosa was found in the rectum with adherent clot. Oozing was present. The clot was not removed. To stop active bleeding, hemostatic spray was deployed. Two sprays were applied. There was no bleeding at the end of the procedure. Multiple small-mouthed diverticula were found in the sigmoid colon. Multiple polyps were seen in the colon throughout the procedure. Avoid fecal management devices or any enemas x 48 hours. Consider sucralfate enemas after 48 hours to aid in ulcer healing. Repeat colonoscopy non-urgently when patient is out of the hospital for polypectomy. Monitor, start clear diet, continue every 6 hrs CBC 04/15 Still with moderate amount of bleeding with dark blood and clots, Hgb however is stable, noticed slowed down with NPO, patient no appetite and prefer to be NPO for now and monitor Gradually increased diet from 04/16-04/24 Consider resumption of plavix. Cardiology consult advised no plavix, start ECASA 81mg Blood count stable since starting aspirin, 8.8-10.2 in the last 4 days, 9.1 today Planning eventual polypectomy with GI as an outpatient. Assessment & Plan (05/03/2025 1:22 PM CDT): Patient with bloody liquid from rectum late afternoon 04/07. Following Hgb 10.4->10.1->9.9->9.4->9.6. CTA of abd-pelvis did not reveal active bleeding source but lots of stool and what appeared to be stool ball in rectum. Digital exam did not reach stool but large amount of clotted blood in rectum. Start miralax TID and try to clear stool. GI consult on board with no plan to scope. - 04/08 given tap water and mineral oil enema, but no BM - 04/09 check KUB: Stool is again noted within the rectum, huge but bloody bowel movement after hypaque enema, Hgb trended down to 6.7, receive 1 unit prbc - 04/10 Hgb 8.3, sigmoidoscopy Preparation of the colon was inadequate. Blood and clots seen in recto-sigmoid colon. Ulcerated, ooozing mucosa in the distal rectum. Treated with goldprobe. Hemostatic spray applied. Avoid AC and ASA for 2 days per GI. Avoid enema, continue PO bowel regimen - 04/11 continued rectal bleed, Hgb down to 6.6, given prbc, d/w GI and consulted CRS - limited options, gelfoam soaked with epi plug per rectum applied, not surgical candidate. Continue huge/large bleeding with dark blood and large clots, given 3 units prbc and 1 unit platelet to help with hemostasis (as still within 5 days after Plavix held), Hgb maintained between 8-9.6, BP stable. See significant event notes 04/12 Colonoscopy done: Clotted blood was found in the rectum. A large area of ulcerated mucosa was found in the rectum with adherent clot. Oozing was present. The clot was not removed. To stop active bleeding, hemostatic spray was deployed. Two sprays were applied. There was no bleeding at the end of the procedure. Multiple small-mouthed diverticula were found in the sigmoid colon. Multiple polyps were seen in the colon throughout the procedure. Avoid fecal management devices or any enemas x 48 hours. Consider sucralfate enemas after 48 hours to aid in ulcer healing. Repeat colonoscopy non-urgently when patient is out of the hospital for polypectomy. Monitor, start clear diet, continue every 6 hrs CBC 04/15 Still with moderate amount of bleeding with dark blood and clots, Hgb however is stable, noticed slowed down with NPO, patient no appetite and prefer to be NPO for now and monitor Gradually increased diet from 04/16-04/24 Consider resumption of plavix. Cardiology consult advised no plavix, start ECASA 81mg Blood count stable since starting aspirin, .11/13.6 Planning eventual polypectomy with GI as an outpatient. Assessment & Plan (05/02/2025 1:13 PM CDT): Patient with bloody liquid from rectum late afternoon 04/07. Following Hgb 10.4->10.1->9.9->9.4->9.6. CTA of abd-pelvis did not reveal active bleeding source but lots of stool and what appeared to be stool ball in rectum. Digital exam did not reach stool but large amount of clotted blood in rectum. Start miralax TID and try to clear stool. GI consult on board with no plan to scope. - 04/08 given tap water and mineral oil enema, but no BM - 04/09 check KUB: Stool is again noted within the rectum, huge but bloody bowel movement after hypaque enema, Hgb trended down to 6.7, receive 1 unit prbc - 04/10 Hgb 8.3, sigmoidoscopy Preparation of the colon was inadequate. Blood and clots seen in recto-sigmoid colon. Ulcerated, ooozing mucosa in the distal rectum. Treated with goldprobe. Hemostatic spray applied. Avoid AC and ASA for 2 days per GI. Avoid enema, continue PO bowel regimen - 04/11 continued rectal bleed, Hgb down to 6.6, given prbc, d/w GI and consulted CRS - limited options, gelfoam soaked with epi plug per rectum applied, not surgical candidate. Continue huge/large bleeding with dark blood and large clots, given 3 units prbc and 1 unit platelet to help with hemostasis (as still within 5 days after Plavix held), Hgb maintained between 8-9.6, BP stable. See significant event notes 04/12 Colonoscopy done: Clotted blood was found in the rectum. A large area of ulcerated mucosa was found in the rectum with adherent clot. Oozing was present. The clot was not removed. To stop active bleeding, hemostatic spray was deployed. Two sprays were applied. There was no bleeding at the end of the procedure. Multiple small-mouthed diverticula were found in the sigmoid colon. Multiple polyps were seen in the colon throughout the procedure. Avoid fecal management devices or any enemas x 48 hours. Consider sucralfate enemas after 48 hours to aid in ulcer healing. Repeat colonoscopy non-urgently when patient is out of the hospital for polypectomy. Monitor, start clear diet, continue every 6 hrs CBC 04/15 Still with moderate amount of bleeding with dark blood and clots, Hgb however is stable, noticed slowed down with NPO, patient no appetite and prefer to be NPO for now and monitor Gradually increased diet from 04/16-04/23 Hgb stable 04/24: Hgb=9.7. Consider resumption of plavix. Cardiology consult advised no plavix, start ECASA 81mg Blood count stable since starting aspirin, .11/13.6 Planning eventual polypectomy with GI as an outpatient. Assessment & Plan (04/30/2025 5:18 PM CDT): Patient with bloody liquid from rectum late afternoon 04/07. Following Hgb 10.4->10.1->9.9->9.4->9.6. CTA of abd-pelvis did not reveal active bleeding source but lots of stool and what appeared to be stool ball in rectum. Digital exam did not reach stool but large amount of clotted blood in rectum. Start miralax TID and try to clear stool. GI consult on board with no plan to scope. - 04/08 given tap water and mineral oil enema, but no BM - 04/09 check KUB: Stool is again noted within the rectum, huge but bloody bowel movement after hypaque enema, Hgb trended down to 6.7, receive 1 unit prbc - 04/10 Hgb 8.3, sigmoidoscopy Preparation of the colon was inadequate. Blood and clots seen in recto-sigmoid colon. Ulcerated, ooozing mucosa in the distal rectum. Treated with goldprobe. Hemostatic spray applied. Avoid AC and ASA for 2 days per GI. Avoid enema, continue PO bowel regimen - 04/11 continued rectal bleed, Hgb down to 6.6, given prbc, d/w GI and consulted CRS - limited options, gelfoam soaked with epi plug per rectum applied, not surgical candidate. Continue huge/large bleeding with dark blood and large clots, given 3 units prbc and 1 unit platelet to help with hemostasis (as still within 5 days after Plavix held), Hgb maintained between 8-9.6, BP stable. See significant event notes 04/12 Colonoscopy done: Clotted blood was found in the rectum. A large area of ulcerated mucosa was found in the rectum with adherent clot. Oozing was present. The clot was not removed. To stop active bleeding, hemostatic spray was deployed. Two sprays were applied. There was no bleeding at the end of the procedure. Multiple small-mouthed diverticula were found in the sigmoid colon. Multiple polyps were seen in the colon throughout the procedure. Avoid fecal management devices or any enemas x 48 hours. Consider sucralfate enemas after 48 hours to aid in ulcer healing. Repeat colonoscopy non-urgently when patient is out of the hospital for polypectomy. Monitor, start clear diet, continue every 6 hrs CBC 04/15 Still with moderate amount of bleeding with dark blood and clots, Hgb however is stable, noticed slowed down with NPO, patient no appetite and prefer to be NPO for now and monitor Gradually increased diet from 04/16-04/23 Hgb stable 04/24: Hgb=9.7. Consider resumption of plavix. Cardiology consult advised no plavix, start ECASA 81mg Blood count stable since starting aspirin Planning eventual polypectomy with GI as an outpatient. Assessment & Plan (04/29/2025 10:33 AM CDT): Patient with bloody liquid from rectum late afternoon 04/07. Following Hgb 10.4->10.1->9.9->9.4->9.6. CTA of abd-pelvis did not reveal active bleeding source but lots of stool and what appeared to be stool ball in rectum. Digital exam did not reach stool but large amount of clotted blood in rectum. Start miralax TID and try to clear stool. GI consult on board with no plan to scope. - 04/08 given tap water and mineral oil enema, but no BM - 04/09 check KUB: Stool is again noted within the rectum, huge but bloody bowel movement after hypaque enema, Hgb trended down to 6.7, receive 1 unit prbc - 04/10 Hgb 8.3, sigmoidoscopy Preparation of the colon was inadequate. Blood and clots seen in recto-sigmoid colon. Ulcerated, ooozing mucosa in the distal rectum. Treated with goldprobe. Hemostatic spray applied. Avoid AC and ASA for 2 days per GI. Avoid enema, continue PO bowel regimen - 04/11 continued rectal bleed, Hgb down to 6.6, given prbc, d/w GI and consulted CRS - limited options, gelfoam soaked with epi plug per rectum applied, not surgical candidate. Continue huge/large bleeding with dark blood and large clots, given 3 units prbc and 1 unit platelet to help with hemostasis (as still within 5 days after Plavix held), Hgb maintained between 8-9.6, BP stable. See significant event notes - 04/12 Colonoscopy done: Clotted blood was found in the rectum. A large area of ulcerated mucosa was found in the rectum with adherent clot. Oozing was present. The clot was not removed. To stop active bleeding, hemostatic spray was deployed. Two sprays were applied. There was no bleeding at the end of the procedure. Multiple small-mouthed diverticula were found in the sigmoid colon. Multiple polyps were seen in the colon throughout the procedure. Avoid fecal management devices or any enemas x 48 hours. Consider sucralfate enemas after 48 hours to aid in ulcer healing. Repeat colonoscopy non-urgently when patient is out of the hospital for polypectomy. Monitor, start clear diet, continue every 6 hrs CBC -04/15 Still with moderate amount of bleeding with dark blood and clots, Hgb however is stable, noticed slowed down with NPO, patient no appetite and prefer to be NPO for now and monitor 7-1 sips of clears 7-2 stable, stools brown- start clear liquids and monitor 7-3 tolerating clears, brown stools, wants to wait before advancing diet. Hgb stable 7-4 continue clears- stools brown 7- advance diet to full liquid, monitor-no bleed, does not want to advance 04/23: Hgb=8.8 advance to regular diet and monitor 04/24: Hgb=9.7. Consider resumption of plavix. Cardiology consult advised no plavix, start ECASA 81mg 04/25. 04/25 Hgb=8.8 04/26 Hgb=8.9 04/27 Hgb=10.2 04/29 Hgb=8.8 no sign of bleeding Assessment & Plan (04/28/2025 11:48 AM CDT): Patient with bloody liquid from rectum late afternoon 04/07. Following Hgb 10.4->10.1->9.9->9.4->9.6. CTA of abd-pelvis did not reveal active bleeding source but lots of stool and what appeared to be stool ball in rectum. Digital exam did not reach stool but large amount of clotted blood in rectum. Start miralax TID and try to clear stool. GI consult on board with no plan to scope. - 04/08 given tap water and mineral oil enema, but no BM - 04/09 check KUB: Stool is again noted within the rectum, huge but bloody bowel movement after hypaque enema, Hgb trended down to 6.7, receive 1 unit prbc - 04/10 Hgb 8.3, sigmoidoscopy Preparation of the colon was inadequate. Blood and clots seen in recto-sigmoid colon. Ulcerated, ooozing mucosa in the distal rectum. Treated with goldprobe. Hemostatic spray applied. Avoid AC and ASA for 2 days per GI. Avoid enema, continue PO bowel regimen - 04/11 continued rectal bleed, Hgb down to 6.6, given prbc, d/w GI and consulted CRS - limited options, gelfoam soaked with epi plug per rectum applied, not surgical candidate. Continue huge/large bleeding with dark blood and large clots, given 3 units prbc and 1 unit platelet to help with hemostasis (as still within 5 days after Plavix held), Hgb maintained between 8-9.6, BP stable. See significant event notes - 04/12 Colonoscopy done: Clotted blood was found in the rectum. A large area of ulcerated mucosa was found in the rectum with adherent clot. Oozing was present. The clot was not removed. To stop active bleeding, hemostatic spray was deployed. Two sprays were applied. There was no bleeding at the end of the procedure. Multiple small-mouthed diverticula were found in the sigmoid colon. Multiple polyps were seen in the colon throughout the procedure. Avoid fecal management devices or any enemas x 48 hours. Consider sucralfate enemas after 48 hours to aid in ulcer healing. Repeat colonoscopy non-urgently when patient is out of the hospital for polypectomy. Monitor, start clear diet, continue every 6 hrs CBC -04/15 Still with moderate amount of bleeding with dark blood and clots, Hgb however is stable, noticed slowed down with NPO, patient no appetite and prefer to be NPO for now and monitor 7-1 sips of clears 7-2 stable, stools brown- start clear liquids and monitor 7-3 tolerating clears, brown stools, wants to wait before advancing diet. Hgb stable 7-4 continue clears- stools brown 7-5 advance diet to full liquid, monitor-no bleed, does not want to advance 04/23: Hgb=8.8 advance to regular diet and monitor 04/24: Hgb=9.7. Consider resumption of plavix. Cardiology consult advised no plavix, start ECASA 81mg 04/25. 04/25 Hgb=8.8 04/26 Hgb=8.9 no sign of bleeding 04/27 Hgb=10.2 Assessment & Plan (04/27/2025 9:58 AM CDT): Patient with bloody liquid from rectum late afternoon 04/07. Following Hgb 10.4->10.1->9.9->9.4->9.6. CTA of abd-pelvis did not reveal active bleeding source but lots of stool and what appeared to be stool ball in rectum. Digital exam did not reach stool but large amount of clotted blood in rectum. Start miralax TID and try to clear stool. GI consult on board with no plan to scope. - 04/08 given tap water and mineral oil enema, but no BM - 04/09 check KUB: Stool is again noted within the rectum, huge but bloody bowel movement after hypaque enema, Hgb trended down to 6.7, receive 1 unit prbc - 04/10 Hgb 8.3, sigmoidoscopy Preparation of the colon was inadequate. Blood and clots seen in recto-sigmoid colon. Ulcerated, ooozing mucosa in the distal rectum. Treated with goldprobe. Hemostatic spray applied. Avoid AC and ASA for 2 days per GI. Avoid enema, continue PO bowel regimen - 04/11 continued rectal bleed, Hgb down to 6.6, given prbc, d/w GI and consulted CRS - limited options, gelfoam soaked with epi plug per rectum applied, not surgical candidate. Continue huge/large bleeding with dark blood and large clots, given 3 units prbc and 1 unit platelet to help with hemostasis (as still within 5 days after Plavix held), Hgb maintained between 8-9.6, BP stable. See significant event notes - 04/12 Colonoscopy done: Clotted blood was found in the rectum. A large area of ulcerated mucosa was found in the rectum with adherent clot. Oozing was present. The clot was not removed. To stop active bleeding, hemostatic spray was deployed. Two sprays were applied. There was no bleeding at the end of the procedure. Multiple small-mouthed diverticula were found in the sigmoid colon. Multiple polyps were seen in the colon throughout the procedure. Avoid fecal management devices or any enemas x 48 hours. Consider sucralfate enemas after 48 hours to aid in ulcer healing. Repeat colonoscopy non-urgently when patient is out of the hospital for polypectomy. Monitor, start clear diet, continue every 6 hrs CBC -04/15 Still with moderate amount of bleeding with dark blood and clots, Hgb however is stable, noticed slowed down with NPO, patient no appetite and prefer to be NPO for now and monitor 7-1 sips of clears 7-2 stable, stools brown- start clear liquids and monitor 7-3 tolerating clears, brown stools, wants to wait before advancing diet. Hgb stable 7-4 continue clears- stools brown 7- advance diet to full liquid, monitor-no bleed, does not want to advance 04/23: Hgb=8.8 advance to regular diet and monitor 04/24: Hgb=9.7. Consider resumption of plavix. Cardiology consult advised no plavix, start ECASA 81mg 04/25. 04/25 Hgb=8.8 04/26 Hgb=8.9 no sign of bleeding 04/27 Hgb=10.2 Assessment & Plan (04/26/2025 10:07 AM CDT): Patient with bloody liquid from rectum late afternoon 04/07. Following Hgb 10.4->10.1->9.9->9.4->9.6. CTA of abd-pelvis did not reveal active bleeding source but lots of stool and what appeared to be stool ball in rectum. Digital exam did not reach stool but large amount of clotted blood in rectum. Start miralax TID and try to clear stool. GI consult on board with no plan to scope. - 04/08 given tap water and mineral oil enema, but no BM - 04/09 check KUB: Stool is again noted within the rectum, huge but bloody bowel movement after hypaque enema, Hgb trended down to 6.7, receive 1 unit prbc - 04/10 Hgb 8.3, sigmoidoscopy Preparation of the colon was inadequate. Blood and clots seen in recto-sigmoid colon. Ulcerated, ooozing mucosa in the distal rectum. Treated with goldprobe. Hemostatic spray applied. Avoid AC and ASA for 2 days per GI. Avoid enema, continue PO bowel regimen - 04/11 continued rectal bleed, Hgb down to 6.6, given prbc, d/w GI and consulted CRS - limited options, gelfoam soaked with epi plug per rectum applied, not surgical candidate. Continue huge/large bleeding with dark blood and large clots, given 3 units prbc and 1 unit platelet to help with hemostasis (as still within 5 days after Plavix held), Hgb maintained between 8-9.6, BP stable. See significant event notes - 04/12 Colonoscopy done: Clotted blood was found in the rectum. A large area of ulcerated mucosa was found in the rectum with adherent clot. Oozing was present. The clot was not removed. To stop active bleeding, hemostatic spray was deployed. Two sprays were applied. There was no bleeding at the end of the procedure. Multiple small-mouthed diverticula were found in the sigmoid colon. Multiple polyps were seen in the colon throughout the procedure. Avoid fecal management devices or any enemas x 48 hours. Consider sucralfate enemas after 48 hours to aid in ulcer healing. Repeat colonoscopy non-urgently when patient is out of the hospital for polypectomy. Monitor, start clear diet, continue every 6 hrs CBC -04/15 Still with moderate amount of bleeding with dark blood and clots, Hgb however is stable, noticed slowed down with NPO, patient no appetite and prefer to be NPO for now and monitor 7-1 sips of clears 7-2 stable, stools brown- start clear liquids and monitor 7-3 tolerating clears, brown stools, wants to wait before advancing diet. Hgb stable 7-4 continue clears- stools brown 7-5 advance diet to full liquid, monitor-no bleed, does not want to advance 04/23: Hgb=8.8 advance to regular diet and monitor 04/24: Hgb=9.7. Consider resumption of plavix. Cardiology consult advised no plavix, start ECASA 81mg 04/25. 04/25 Hgb=8.8 04/26 Hgb=8.9 no sign of bleeding Assessment & Plan (04/25/2025 10:43 AM CDT): Patient with bloody liquid from rectum late afternoon 04/07. Following Hgb 10.4->10.1->9.9->9.4->9.6. CTA of abd-pelvis did not reveal active bleeding source but lots of stool and what appeared to be stool ball in rectum. Digital exam did not reach stool but large amount of clotted blood in rectum. Start miralax TID and try to clear stool. GI consult on board with no plan to scope. - 04/08 given tap water and mineral oil enema, but no BM - 04/09 check KUB: Stool is again noted within the rectum, huge but bloody bowel movement after hypaque enema, Hgb trended down to 6.7, receive 1 unit prbc - 04/10 Hgb 8.3, sigmoidoscopy Preparation of the colon was inadequate. Blood and clots seen in recto-sigmoid colon. Ulcerated, ooozing mucosa in the distal rectum. Treated with goldprobe. Hemostatic spray applied. Avoid AC and ASA for 2 days per GI. Avoid enema, continue PO bowel regimen - 04/11 continued rectal bleed, Hgb down to 6.6, given prbc, d/w GI and consulted CRS - limited options, gelfoam soaked with epi plug per rectum applied, not surgical candidate. Continue huge/large bleeding with dark blood and large clots, given 3 units prbc and 1 unit platelet to help with hemostasis (as still within 5 days after Plavix held), Hgb maintained between 8-9.6, BP stable. See significant event notes - 04/12 Colonoscopy done: Clotted blood was found in the rectum. A large area of ulcerated mucosa was found in the rectum with adherent clot. Oozing was present. The clot was not removed. To stop active bleeding, hemostatic spray was deployed. Two sprays were applied. There was no bleeding at the end of the procedure. Multiple small-mouthed diverticula were found in the sigmoid colon. Multiple polyps were seen in the colon throughout the procedure. Avoid fecal management devices or any enemas x 48 hours. Consider sucralfate enemas after 48 hours to aid in ulcer healing. Repeat colonoscopy non-urgently when patient is out of the hospital for polypectomy. Monitor, start clear diet, continue every 6 hrs CBC -04/15 Still with moderate amount of bleeding with dark blood and clots, Hgb however is stable, noticed slowed down with NPO, patient no appetite and prefer to be NPO for now and monitor 7-1 sips of clears 7-2 stable, stools brown- start clear liquids and monitor 7-3 tolerating clears, brown stools, wants to wait before advancing diet. Hgb stable 7-4 continue clears- stools brown 7-5 advance diet to full liquid, monitor-no bleed, does not want to advance 04/23: advance to regular diet and monitor 04/24: Hgb=9.7. Consider resumption of plavix. Cardiology consult advised no plavix, start ECASA 81mg 04/25. Assessment & Plan (04/24/2025 11:01 AM CDT): Patient with bloody liquid from rectum late afternoon 04/07. Following Hgb 10.4->10.1->9.9->9.4->9.6. CTA of abd-pelvis did not reveal active bleeding source but lots of stool and what appeared to be stool ball in rectum. Digital exam did not reach stool but large amount of clotted blood in rectum. Start miralax TID and try to clear stool. GI consult on board with no plan to scope. - 04/08 given tap water and mineral oil enema, but no BM - 04/09 check KUB: Stool is again noted within the rectum, huge but bloody bowel movement after hypaque enema, Hgb trended down to 6.7, receive 1 unit prbc - 04/10 Hgb 8.3, sigmoidoscopy Preparation of the colon was inadequate. Blood and clots seen in recto-sigmoid colon. Ulcerated, ooozing mucosa in the distal rectum. Treated with goldprobe. Hemostatic spray applied. Avoid AC and ASA for 2 days per GI. Avoid enema, continue PO bowel regimen - 04/11 continued rectal bleed, Hgb down to 6.6, given prbc, d/w GI and consulted CRS - limited options, gelfoam soaked with epi plug per rectum applied, not surgical candidate. Continue huge/large bleeding with dark blood and large clots, given 3 units prbc and 1 unit platelet to help with hemostasis (as still within 5 days after Plavix held), Hgb maintained between 8-9.6, BP stable. See significant event notes - 04/12 Colonoscopy done: Clotted blood was found in the rectum. A large area of ulcerated mucosa was found in the rectum with adherent clot. Oozing was present. The clot was not removed. To stop active bleeding, hemostatic spray was deployed. Two sprays were applied. There was no bleeding at the end of the procedure. Multiple small-mouthed diverticula were found in the sigmoid colon. Multiple polyps were seen in the colon throughout the procedure. Avoid fecal management devices or any enemas x 48 hours. Consider sucralfate enemas after 48 hours to aid in ulcer healing. Repeat colonoscopy non-urgently when patient is out of the hospital for polypectomy. Monitor, start clear diet, continue every 6 hrs CBC -04/15 Still with moderate amount of bleeding with dark blood and clots, Hgb however is stable, noticed slowed down with NPO, patient no appetite and prefer to be NPO for now and monitor 7-1 sips of clears 7-2 stable, stools brown- start clear liquids and monitor 7-3 tolerating clears, brown stools, wants to wait before advancing diet. Hgb stable 7-4 continue clears- stools brown 7-5 advance diet to full liquid, monitor-no bleed, does not want to advance 7/8: advance to regular diet and monitor /9: Hgb=9.7. Consider resumption of plavix. Assessment & Plan (04/23/2025 2:21 PM CDT): Patient with bloody liquid from rectum late afternoon 04/07. Following Hgb 10.4->10.1->9.9->9.4->9.6. CTA of abd-pelvis did not reveal active bleeding source but lots of stool and what appeared to be stool ball in rectum. Digital exam did not reach stool but large amount of clotted blood in rectum. Start miralax TID and try to clear stool. GI consult on board with no plan to scope. - 04/08 given tap water and mineral oil enema, but no BM - 04/09 check KUB: Stool is again noted within the rectum, huge but bloody bowel movement after hypaque enema, Hgb trended down to 6.7, receive 1 unit prbc - 04/10 Hgb 8.3, sigmoidoscopy Preparation of the colon was inadequate. Blood and clots seen in recto-sigmoid colon. Ulcerated, ooozing mucosa in the distal rectum. Treated with goldprobe. Hemostatic spray applied. Avoid AC and ASA for 2 days per GI. Avoid enema, continue PO bowel regimen - 04/11 continued rectal bleed, Hgb down to 6.6, given prbc, d/w GI and consulted CRS - limited options, gelfoam soaked with epi plug per rectum applied, not surgical candidate. Continue huge/large bleeding with dark blood and large clots, given 3 units prbc and 1 unit platelet to help with hemostasis (as still within 5 days after Plavix held), Hgb maintained between 8-9.6, BP stable. See significant event notes - 04/12 Colonoscopy done: Clotted blood was found in the rectum. A large area of ulcerated mucosa was found in the rectum with adherent clot. Oozing was present. The clot was not removed. To stop active bleeding, hemostatic spray was deployed. Two sprays were applied. There was no bleeding at the end of the procedure. Multiple small-mouthed diverticula were found in the sigmoid colon. Multiple polyps were seen in the colon throughout the procedure. Avoid fecal management devices or any enemas x 48 hours. Consider sucralfate enemas after 48 hours to aid in ulcer healing. Repeat colonoscopy non-urgently when patient is out of the hospital for polypectomy. Monitor, start clear diet, continue every 6 hrs CBC -04/15 Still with moderate amount of bleeding with dark blood and clots, Hgb however is stable, noticed slowed down with NPO, patient no appetite and prefer to be NPO for now and monitor 7-1 sips of clears 7-2 stable, stools brown- start clear liquids and monitor 7-3 tolerating clears, brown stools, wants to wait before advancing diet. Hgb stable 7-4 continue clears- stools brown 7-5 advance diet to full liquid, monitor-no bleed, does not want to advance 7/8: advance to regular diet and monitor Assessment & Plan (04/23/2025 6:07 AM CDT): Patient with bloody liquid from rectum late afternoon 04/07. Following Hgb 10.4->10.1->9.9->9.4->9.6. CTA of abd-pelvis did not reveal active bleeding source but lots of stool and what appeared to be stool ball in rectum. Digital exam did not reach stool but large amount of clotted blood in rectum. Start miralax TID and try to clear stool. GI consult on board with no plan to scope. - 04/08 given tap water and mineral oil enema, but no BM - 04/09 check KUB: Stool is again noted within the rectum, huge but bloody bowel movement after hypaque enema, Hgb trended down to 6.7, receive 1 unit prbc - 04/10 Hgb 8.3, sigmoidoscopy Preparation of the colon was inadequate. Blood and clots seen in recto-sigmoid colon. Ulcerated, ooozing mucosa in the distal rectum. Treated with goldprobe. Hemostatic spray applied. Avoid AC and ASA for 2 days per GI. Avoid enema, continue PO bowel regimen - 04/11 continued rectal bleed, Hgb down to 6.6, given prbc, d/w GI and consulted CRS - limited options, gelfoam soaked with epi plug per rectum applied, no surgical candidate. Continue huge/large bleeding with dark blood and large clots, given 3 units prbc and 1 unit platelet to help with hemostasis (as still within 5 days after Plavix held), Hgb maintained between 8-9.6, BP stable. See significant event notes - 04/12 Colonoscopy done: Clotted blood was found in the rectum. A large area of ulcerated mucosa was found in the rectum with adherent clot. Oozing was present. The clot was not removed. To stop active bleeding, hemostatic spray was deployed. Two sprays were applied. There was no bleeding at the end of the procedure. Multiple small-mouthed diverticula were found in the sigmoid colon. Multiple polyps were seen in the colon throughout the procedure. Avoid fecal management devices or any enemas x 48 hours. Consider sucralfate enemas after 48 hours to aid in ulcer healing. Repeat colonoscopy non-urgently when patient is out of the hospital for polypectomy. Monitor, start clear diet, continue every 6 hrs CBC -6-30 Still with moderate amount of bleeding with dark blood and clots, Hgb however is stable, noticed slowed down with NPO, patient no appetite and prefer to be NPO for now and monitor 7-1 sips of clears 7-2, stable, stools brown- start clear liquids and monitor 7-3, tolerating clears , brown stools, wants to wait before advancing diet. Hgb stable 7-4 continue clears- stools brown, 7-5 advance diet to full liquid, monitorno bleed, does not want to advance Assessment & Plan (04/21/2025 8:10 PM CDT): Patient with bloody liquid from rectum late afternoon 04/07. Following Hgb 10.4->10.1->9.9->9.4->9.6. CTA of abd-pelvis did not reveal active bleeding source but lots of stool and what appeared to be stool ball in rectum. Digital exam did not reach stool but large amount of clotted blood in rectum. Start miralax TID and try to clear stool. GI consult on board with no plan to scope. - 04/08 given tap water and mineral oil enema, but no BM - 04/09 check KUB: Stool is again noted within the rectum, huge but bloody bowel movement after hypaque enema, Hgb trended down to 6.7, receive 1 unit prbc - 04/10 Hgb 8.3, sigmoidoscopy Preparation of the colon was inadequate. Blood and clots seen in recto-sigmoid colon. Ulcerated, ooozing mucosa in the distal rectum. Treated with goldprobe. Hemostatic spray applied. Avoid AC and ASA for 2 days per GI. Avoid enema, continue PO bowel regimen - 04/11 continued rectal bleed, Hgb down to 6.6, given prbc, d/w GI and consulted CRS - limited options, gelfoam soaked with epi plug per rectum applied, no surgical candidate. Continue huge/large bleeding with dark blood and large clots, given 3 units prbc and 1 unit platelet to help with hemostasis (as still within 5 days after Plavix held), Hgb maintained between 8-9.6, BP stable. See significant event notes - 04/12 Colonoscopy done: Clotted blood was found in the rectum. A large area of ulcerated mucosa was found in the rectum with adherent clot. Oozing was present. The clot was not removed. To stop active bleeding, hemostatic spray was deployed. Two sprays were applied. There was no bleeding at the end of the procedure. Multiple small-mouthed diverticula were found in the sigmoid colon. Multiple polyps were seen in the colon throughout the procedure. Avoid fecal management devices or any enemas x 48 hours. Consider sucralfate enemas after 48 hours to aid in ulcer healing. Repeat colonoscopy non-urgently when patient is out of the hospital for polypectomy. Monitor, start clear diet, continue every 6 hrs CBC -6-30 Still with moderate amount of bleeding with dark blood and clots, Hgb however is stable, noticed slowed down with NPO, patient no appetite and prefer to be NPO for now and monitor 7-1 sips of clears 7-2, stable, stools brown- start clear liquids and monitor 7-3, tolerating clears , brown stools, wants to wait before advancing diet. Hgb stable 7-4 continue clears- stools brown, 7-5 advance diet to full liquid, monitor Assessment & Plan (04/20/2025 7:27 PM CDT): Patient with bloody liquid from rectum late afternoon 04/07. Following Hgb 10.4->10.1->9.9->9.4->9.6. CTA of abd-pelvis did not reveal active bleeding source but lots of stool and what appeared to be stool ball in rectum. Digital exam did not reach stool but large amount of clotted blood in rectum. Start miralax TID and try to clear stool. GI consult on board with no plan to scope. - 04/08 given tap water and mineral oil enema, but no BM - 04/09 check KUB: Stool is again noted within the rectum, huge but bloody bowel movement after hypaque enema, Hgb trended down to 6.7, receive 1 unit prbc - 04/10 Hgb 8.3, sigmoidoscopy Preparation of the colon was inadequate. Blood and clots seen in recto-sigmoid colon. Ulcerated, ooozing mucosa in the distal rectum. Treated with goldprobe. Hemostatic spray applied. Avoid AC and ASA for 2 days per GI. Avoid enema, continue PO bowel regimen - 04/11 continued rectal bleed, Hgb down to 6.6, given prbc, d/w GI and consulted CRS - limited options, gelfoam soaked with epi plug per rectum applied, no surgical candidate. Continue huge/large bleeding with dark blood and large clots, given 3 units prbc and 1 unit platelet to help with hemostasis (as still within 5 days after Plavix held), Hgb maintained between 8-9.6, BP stable. See significant event notes - 04/12 Colonoscopy done: Clotted blood was found in the rectum. A large area of ulcerated mucosa was found in the rectum with adherent clot. Oozing was present. The clot was not removed. To stop active bleeding, hemostatic spray was deployed. Two sprays were applied. There was no bleeding at the end of the procedure. Multiple small-mouthed diverticula were found in the sigmoid colon. Multiple polyps were seen in the colon throughout the procedure. Avoid fecal management devices or any enemas x 48 hours. Consider sucralfate enemas after 48 hours to aid in ulcer healing. Repeat colonoscopy non-urgently when patient is out of the hospital for polypectomy. Monitor, start clear diet, continue every 6 hrs CBC -04-15 Still with moderate amount of bleeding with dark blood and clots, Hgb however is stable, noticed slowed down with NPO, patient no appetite and prefer to be NPO for now and monitor 7-1 sips of clears 7-2, stable, stools brown- start clear liquids and monitor 7-3, tolerating clears , brown stools, wants to wait before advancing diet. Hgb stable 7-4 continue clears- stools brown, monitor 7-5 advance diet to full liquid Assessment & Plan (04/19/2025 8:18 PM CDT): Patient with bloody liquid from rectum late afternoon 04/07. Following Hgb 10.4->10.1->9.9->9.4->9.6. CTA of abd-pelvis did not reveal active bleeding source but lots of stool and what appeared to be stool ball in rectum. Digital exam did not reach stool but large amount of clotted blood in rectum. Start miralax TID and try to clear stool. GI consult on board with no plan to scope. - 04/08 given tap water and mineral oil enema, but no BM - 04/09 check KUB: Stool is again noted within the rectum, huge but bloody bowel movement after hypaque enema, Hgb trended down to 6.7, receive 1 unit prbc - 04/10 Hgb 8.3, sigmoidoscopy Preparation of the colon was inadequate. Blood and clots seen in recto-sigmoid colon. Ulcerated, ooozing mucosa in the distal rectum. Treated with goldprobe. Hemostatic spray applied. Avoid AC and ASA for 2 days per GI. Avoid enema, continue PO bowel regimen - 04/11 continued rectal bleed, Hgb down to 6.6, given prbc, d/w GI and consulted CRS - limited options, gelfoam soaked with epi plug per rectum applied, no surgical candidate. Continue huge/large bleeding with dark blood and large clots, given 3 units prbc and 1 unit platelet to help with hemostasis (as still within 5 days after Plavix held), Hgb maintained between 8-9.6, BP stable. See significant event notes - 04/12 Colonoscopy done: Clotted blood was found in the rectum. A large area of ulcerated mucosa was found in the rectum with adherent clot. Oozing was present. The clot was not removed. To stop active bleeding, hemostatic spray was deployed. Two sprays were applied. There was no bleeding at the end of the procedure. Multiple small-mouthed diverticula were found in the sigmoid colon. Multiple polyps were seen in the colon throughout the procedure. Avoid fecal management devices or any enemas x 48 hours. Consider sucralfate enemas after 48 hours to aid in ulcer healing. Repeat colonoscopy non-urgently when patient is out of the hospital for polypectomy. Monitor, start clear diet, continue every 6 hrs CBC -30 Still with moderate amount of bleeding with dark blood and clots, Hgb however is stable, noticed slowed down with NPO, patient no appetite and prefer to be NPO for now and monitor 7-1 sips of clears 7-2, stable, stools brown- start clear liquids and monitor 7-3, tolerating clears , brown stools, wants to wait before advancing diet. Hgb stable 7-4 continue clears-monitor Assessment & Plan (04/18/2025 7:47 PM CDT): Patient with bloody liquid from rectum late afternoon 04/07. Following Hgb 10.4->10.1->9.9->9.4->9.6. CTA of abd-pelvis did not reveal active bleeding source but lots of stool and what appeared to be stool ball in rectum. Digital exam did not reach stool but large amount of clotted blood in rectum. Start miralax TID and try to clear stool. GI consult on board with no plan to scope. - 04/08 given tap water and mineral oil enema, but no BM - 04/09 check KUB: Stool is again noted within the rectum, huge but bloody bowel movement after hypaque enema, Hgb trended down to 6.7, receive 1 unit prbc - 04/10 Hgb 8.3, sigmoidoscopy Preparation of the colon was inadequate. Blood and clots seen in recto-sigmoid colon. Ulcerated, ooozing mucosa in the distal rectum. Treated with goldprobe. Hemostatic spray applied. Avoid AC and ASA for 2 days per GI. Avoid enema, continue PO bowel regimen - 04/11 continued rectal bleed, Hgb down to 6.6, given prbc, d/w GI and consulted CRS - limited options, gelfoam soaked with epi plug per rectum applied, no surgical candidate. Continue huge/large bleeding with dark blood and large clots, given 3 units prbc and 1 unit platelet to help with hemostasis (as still within 5 days after Plavix held), Hgb maintained between 8-9.6, BP stable. See significant event notes - 04/12 Colonoscopy done: Clotted blood was found in the rectum. A large area of ulcerated mucosa was found in the rectum with adherent clot. Oozing was present. The clot was not removed. To stop active bleeding, hemostatic spray was deployed. Two sprays were applied. There was no bleeding at the end of the procedure. Multiple small-mouthed diverticula were found in the sigmoid colon. Multiple polyps were seen in the colon throughout the procedure. Avoid fecal management devices or any enemas x 48 hours. Consider sucralfate enemas after 48 hours to aid in ulcer healing. Repeat colonoscopy non-urgently when patient is out of the hospital for polypectomy. Monitor, start clear diet, continue every 6 hrs CBC -6-30 Still with moderate amount of bleeding with dark blood and clots, Hgb however is stable, noticed slowed down with NPO, patient no appetite and prefer to be NPO for now and monitor 7-1 sips of clears 7-2, stable, stools brown- start clear liquids and monitor 7-3, tolerating clears , brown stools, wants to wait befoe advancing diet. Hgb stable Assessment & Plan (04/18/2025 12:22 AM CDT): Patient with bloody liquid from rectum late afternoon 04/07. Following Hgb 10.4->10.1->9.9->9.4->9.6. CTA of abd-pelvis did not reveal active bleeding source but lots of stool and what appeared to be stool ball in rectum. Digital exam did not reach stool but large amount of clotted blood in rectum. Start miralax TID and try to clear stool. GI consult on board with no plan to scope. - 04/08 given tap water and mineral oil enema, but no BM - 04/09 check KUB: Stool is again noted within the rectum, huge but bloody bowel movement after hypaque enema, Hgb trended down to 6.7, receive 1 unit prbc - 04/10 Hgb 8.3, sigmoidoscopy Preparation of the colon was inadequate. Blood and clots seen in recto-sigmoid colon. Ulcerated, ooozing mucosa in the distal rectum. Treated with goldprobe. Hemostatic spray applied. Avoid AC and ASA for 2 days per GI. Avoid enema, continue PO bowel regimen - 04/11 continued rectal bleed, Hgb down to 6.6, given prbc, d/w GI and consulted CRS - limited options, gelfoam soaked with epi plug per rectum applied, no surgical candidate. Continue huge/large bleeding with dark blood and large clots, given 3 units prbc and 1 unit platelet to help with hemostasis (as still within 5 days after Plavix held), Hgb maintained between 8-9.6, BP stable. See significant event notes - 04/12 Colonoscopy done: Clotted blood was found in the rectum. A large area of ulcerated mucosa was found in the rectum with adherent clot. Oozing was present. The clot was not removed. To stop active bleeding, hemostatic spray was deployed. Two sprays were applied. There was no bleeding at the end of the procedure. Multiple small-mouthed diverticula were found in the sigmoid colon. Multiple polyps were seen in the colon throughout the procedure. Avoid fecal management devices or any enemas x 48 hours. Consider sucralfate enemas after 48 hours to aid in ulcer healing. Repeat colonoscopy non-urgently when patient is out of the hospital for polypectomy. Monitor, start clear diet, continue every 6 hrs CBC - Still with moderate amount of bleeding with dark blood and clots, Hgb however is stable, noticed slowed down with NPO, patient no appetite and prefer to be NPO for now and monitor 7-2, stable, stools brown- start clear liquids and monitor Assessment & Plan (04/16/2025 1:42 PM CDT): Patient with bloody liquid from rectum late afternoon 04/07. Following Hgb 10.4->10.1->9.9->9.4->9.6. CTA of abd-pelvis did not reveal active bleeding source but lots of stool and what appeared to be stool ball in rectum. Digital exam did not reach stool but large amount of clotted blood in rectum. Start miralax TID and try to clear stool. GI consult on board with no plan to scope. - 04/08 given tap water and mineral oil enema, but no BM - 04/09 check KUB: Stool is again noted within the rectum, huge but bloody bowel movement after hypaque enema, Hgb trended down to 6.7, receive 1 unit prbc - 04/10 Hgb 8.3, sigmoidoscopy Preparation of the colon was inadequate. Blood and clots seen in recto-sigmoid colon. Ulcerated, ooozing mucosa in the distal rectum. Treated with goldprobe. Hemostatic spray applied. Avoid AC and ASA for 2 days per GI. Avoid enema, continue PO bowel regimen - 04/11 continued rectal bleed, Hgb down to 6.6, given prbc, d/w GI and consulted CRS - limited options, gelfoam soaked with epi plug per rectum applied, no surgical candidate. Continue huge/large bleeding with dark blood and large clots, given 3 units prbc and 1 unit platelet to help with hemostasis (as still within 5 days after Plavix held), Hgb maintained between 8-9.6, BP stable. See significant event notes - 04/12 Colonoscopy done: Clotted blood was found in the rectum. A large area of ulcerated mucosa was found in the rectum with adherent clot. Oozing was present. The clot was not removed. To stop active bleeding, hemostatic spray was deployed. Two sprays were applied. There was no bleeding at the end of the procedure. Multiple small-mouthed diverticula were found in the sigmoid colon. Multiple polyps were seen in the colon throughout the procedure. Avoid fecal management devices or any enemas x 48 hours. Consider sucralfate enemas after 48 hours to aid in ulcer healing. Repeat colonoscopy non-urgently when patient is out of the hospital for polypectomy. Monitor, start clear diet, continue every 6 hrs CBC - Still with moderate amount of bleeding with dark blood and clots, Hgb however is stable, noticed slowed down with NPO, patient no appetite and prefer to be NPO for now and monitor Assessment & Plan (04/15/2025 8:16 AM CDT): Patient with bloody liquid from rectum late afternoon 04/07. Following Hgb 10.4->10.1->9.9->9.4->9.6. CTA of abd-pelvis did not reveal active bleeding source but lots of stool and what appeared to be stool ball in rectum. Digital exam did not reach stool but large amount of clotted blood in rectum. Start miralax TID and try to clear stool. GI consult on board with no plan to scope. - 04/08 given tap water and mineral oil enema, but no BM - 04/09 check KUB: Stool is again noted within the rectum, huge but bloody bowel movement after hypaque enema, Hgb trended down to 6.7, receive 1 unit prbc - 04/10 Hgb 8.3, sigmoidoscopy Preparation of the colon was inadequate. Blood and clots seen in recto-sigmoid colon. Ulcerated, ooozing mucosa in the distal rectum. Treated with goldprobe. Hemostatic spray applied. Avoid AC and ASA for 2 days per GI. Avoid enema, continue PO bowel regimen - 04/11 continued rectal bleed, Hgb down to 6.6, given prbc, d/w GI and consulted CRS - limited options, gelfoam soaked with epi plug per rectum applied, no surgical candidate. Continue huge/large bleeding with dark blood and large clots, given 3 units prbc and 1 unit platelet to help with hemostasis (as still within 5 days after Plavix held), Hgb maintained between 8-9.6, BP stable. See significant event notes - 04/12 Colonoscopy done: Clotted blood was found in the rectum. A large area of ulcerated mucosa was found in the rectum with adherent clot. Oozing was present. The clot was not removed. To stop active bleeding, hemostatic spray was deployed. Two sprays were applied. There was no bleeding at the end of the procedure. Multiple small-mouthed diverticula were found in the sigmoid colon. Multiple polyps were seen in the colon throughout the procedure. Avoid fecal management devices or any enemas x 48 hours. Consider sucralfate enemas after 48 hours to aid in ulcer healing. Repeat colonoscopy non-urgently when patient is out of the hospital for polypectomy. Monitor, start clear diet, continue every 6 hrs CBC - Still with moderate amount of bleeding with dark blood and clots, Hgb however is stable, noticed slowed down with NPO, patient no appetite and prefer to be NPO for now and monitor Assessment & Plan (04/14/2025 11:36 AM CDT): Patient with bloody liquid from rectum late afternoon 04/07. Following Hgb 10.4->10.1->9.9->9.4->9.6. CTA of abd-pelvis did not reveal active bleeding source but lots of stool and what appeared to be stool ball in rectum. Digital exam did not reach stool but large amount of clotted blood in rectum. Start miralax TID and try to clear stool. GI consult on board with no plan to scope. - 04/08 given tap water and mineral oil enema, but no BM - 04/09 check KUB: Stool is again noted within the rectum, huge but bloody bowel movement after hypaque enema, Hgb trended down to 6.7, receive 1 unit prbc - 04/10 Hgb 8.3, sigmoidoscopy Preparation of the colon was inadequate. Blood and clots seen in recto-sigmoid colon. Ulcerated, ooozing mucosa in the distal rectum. Treated with goldprobe. Hemostatic spray applied. Avoid AC and ASA for 2 days per GI. Avoid enema, continue PO bowel regimen - 04/11 continued rectal bleed, Hgb down to 6.6, given prbc, d/w GI and consulted CRS - limited options, gelfoam soaked with epi plug per rectum applied, no surgical candidate. Continue huge/large bleeding with dark blood and large clots, given 3 units prbc and 1 unit platelet to help with hemostasis (as still within 5 days after Plavix held), Hgb maintained between 8-9.6, BP stable. See significant event notes - 04/12 Colonoscopy done: Clotted blood was found in the rectum. A large area of ulcerated mucosa was found in the rectum with adherent clot. Oozing was present. The clot was not removed. To stop active bleeding, hemostatic spray was deployed. Two sprays were applied. There was no bleeding at the end of the procedure. Multiple small-mouthed diverticula were found in the sigmoid colon. Multiple polyps were seen in the colon throughout the procedure. Avoid fecal management devices or any enemas x 48 hours. Consider sucralfate enemas after 48 hours to aid in ulcer healing. Repeat colonoscopy non-urgently when patient is out of the hospital for polypectomy. Monitor, start clear diet, continue every 6 hrs CBC - Still with moderate amount of bleeding with dark blood and clots, Hgb however is stable, noticed slowed down with NPO, patient no appetite and prefer to be NPO for now and monitor S/P TAVR (transcatheter aortic valve replacement ) 03/25/2025 Aortic stenosis, severe 03/14/2025 Assessment & Plan (05/10/2025 7:59 AM CDT): STABLE TTE (02/06/25): Severe aortic stenosis. Peak Velocity of 4.06 m/s. Peak gradient of 66.0 mmHg. Mean gradient of 40.0 mmHg. Valve area of 0.9 cm2. Aortic cusps appear severely calcified. Trileaflet aortic valve. Mild aortic valve regurgitation. S/p TAVR on 03/25 @ . Cardiology consulted 04/25: Recommendations: Discontinue plavix. Start Aspirin 81mg daily. Hold eliquis indefinitely. Outpatient follow up with patient's garbage collector Dr. Dahl. Assessment & Plan (05/09/2025 7:59 AM CDT): STABLE TTE (02/06/25): Severe aortic stenosis. Peak Velocity of 4.06 m/s. Peak gradient of 66.0 mmHg. Mean gradient of 40.0 mmHg. Valve area of 0.9 cm2. Aortic cusps appear severely calcified. Trileaflet aortic valve. Mild aortic valve regurgitation. S/p TAVR on 03/25 @ . Cardiology consulted 04/25: Recommendations: Discontinue plavix. Start Aspirin 81mg daily. Hold eliquis indefinitely. Outpatient follow up with patient's garbage collector Dr. Dahl. Assessment & Plan (05/08/2025 7:40 AM CDT): STABLE TTE (02/06/25): Severe aortic stenosis. Peak Velocity of 4.06 m/s. Peak gradient of 66.0 mmHg. Mean gradient of 40.0 mmHg. Valve area of 0.9 cm2. Aortic cusps appear severely calcified. Trileaflet aortic valve. Mild aortic valve regurgitation. S/p TAVR on 03/25 @ . Cardiology consulted 04/25: Recommendations: Discontinue plavix. Start Aspirin 81mg daily. Hold eliquis indefinitely. Outpatient follow up with patient's garbage collector Dr. Dahl. Assessment & Plan (05/07/2025 7:31 AM CDT): STABLE TTE (02/06/25): Severe aortic stenosis. Peak Velocity of 4.06 m/s. Peak gradient of 66.0 mmHg. Mean gradient of 40.0 mmHg. Valve area of 0.9 cm2. Aortic cusps appear severely calcified. Trileaflet aortic valve. Mild aortic valve regurgitation. S/p TAVR on 03/25 @ . Cardiology consulted 04/25: Recommendations: Discontinue plavix. Start Aspirin 81mg daily. Hold eliquis indefinitely. Outpatient follow up with patient's garbage collector Dr. Dahl. Assessment & Plan (05/06/2025 8:47 AM CDT): STABLE TTE (02/06/25): Severe aortic stenosis. Peak Velocity of 4.06 m/s. Peak gradient of 66.0 mmHg. Mean gradient of 40.0 mmHg. Valve area of 0.9 cm2. Aortic cusps appear severely calcified. Trileaflet aortic valve. Mild aortic valve regurgitation. S/p TAVR on 03/25 @ . Cardiology consulted 04/25: Recommendations: Discontinue plavix. Start Aspirin 81mg daily. Hold eliquis indefinitely. Outpatient follow up with patient's garbage collector Dr. Dahl. Assessment & Plan (05/05/2025 3:50 PM CDT): STABLE TTE (02/06/25): Severe aortic stenosis. Peak Velocity of 4.06 m/s. Peak gradient of 66.0 mmHg. Mean gradient of 40.0 mmHg. Valve area of 0.9 cm2. Aortic cusps appear severely calcified. Trileaflet aortic valve. Mild aortic valve regurgitation. S/p TAVR on 03/25 @ . Cardiology consulted 04/25: Recommendations: Discontinue plavix. Start Aspirin 81mg daily. Hold eliquis indefinitely. Outpatient follow up with patient's garbage collector Dr. Dahl. Assessment & Plan (05/04/2025 10:31 AM CDT): TTE (02/06/25): Severe aortic stenosis. Peak Velocity of 4.06 m/s. Peak gradient of 66.0 mmHg. Mean gradient of 40.0 mmHg. Valve area of 0.9 cm2. Aortic cusps appear severely calcified. Trileaflet aortic valve. Mild aortic valve regurgitation. S/p TAVR on 03/25 @ . Cardiology consulted 04/25: Recommendations: Discontinue plavix. Start Aspirin 81mg daily. Hold eliquis indefinitely. Outpatient follow up with patient's garbage collector Dr. Dahl. Assessment & Plan (05/03/2025 1:22 PM CDT): TTE (02/06/25): Severe aortic stenosis. Peak Velocity of 4.06 m/s. Peak gradient of 66.0 mmHg. Mean gradient of 40.0 mmHg. Valve area of 0.9 cm2. Aortic cusps appear severely calcified. Trileaflet aortic valve. Mild aortic valve regurgitation. S/p TAVR on 03/25 @ . Cardiology consulted 04/25: Recommendations: Discontinue plavix. Start Aspirin 81mg daily. Hold eliquis indefinitely. Outpatient follow up with patient's garbage collector Dr. Dahl. Assessment & Plan (05/02/2025 11:00 AM CDT): TTE (02/06/25): Severe aortic stenosis. Peak Velocity of 4.06 m/s. Peak gradient of 66.0 mmHg. Mean gradient of 40.0 mmHg. Valve area of 0.9 cm2. Aortic cusps appear severely calcified. Trileaflet aortic valve. Mild aortic valve regurgitation. S/p TAVR on 03/25 @ . Cardiology consulted 04/25: Recommendations: Discontinue plavix. Start Aspirin 81mg daily. Hold eliquis indefinitely. Outpatient follow up with patient's garbage collector Dr. Dahl. Assessment & Plan (04/30/2025 5:18 PM CDT): TTE (02/06/25): Severe aortic stenosis. Peak Velocity of 4.06 m/s. Peak gradient of 66.0 mmHg. Mean gradient of 40.0 mmHg. Valve area of 0.9 cm2. Aortic cusps appear severely calcified. Trileaflet aortic valve. Mild aortic valve regurgitation. S/p TAVR on 03/25 @ . Cardiology consulted 04/25: Recommendations: Discontinue plavix. Start Aspirin 81mg daily. Hold eliquis indefinitely. Outpatient follow up with patient's garbage collector Dr. Dahl. Assessment & Plan (04/29/2025 10:33 AM CDT): TTE (02/06/25): Severe aortic stenosis. Peak Velocity of 4.06 m/s. Peak gradient of 66.0 mmHg. Mean gradient of 40.0 mmHg. Valve area of 0.9 cm2. Aortic cusps appear severely calcified. Trileaflet aortic valve. Mild aortic valve regurgitation. S/p TAVR on 03/25 @ . Cardiology consulted 04/25: Recommendations: Discontinue plavix. Start Aspirin 81mg daily. Hold eliquis indefinitely. Outpatient follow up with patient's garbage collector Dr. Dahl. Assessment & Plan (04/28/2025 11:48 AM CDT): TTE (02/06/25): Severe aortic stenosis. Peak Velocity of 4.06 m/s. Peak gradient of 66.0 mmHg. Mean gradient of 40.0 mmHg. Valve area of 0.9 cm2. Aortic cusps appear severely calcified. Trileaflet aortic valve. Mild aortic valve regurgitation. S/p TAVR on 03/25 @ . Cardiology consulted 04/25: Recommendations: Discontinue plavix. Start Aspirin 81mg daily. Hold eliquis indefinitely. Outpatient follow up with patient's garbage collector Dr. Dahl. Assessment & Plan (04/27/2025 9:58 AM CDT): TTE (02/06/25): Severe aortic stenosis. Peak Velocity of 4.06 m/s. Peak gradient of 66.0 mmHg. Mean gradient of 40.0 mmHg. Valve area of 0.9 cm2. Aortic cusps appear severely calcified. Trileaflet aortic valve. Mild aortic valve regurgitation. S/p TAVR on 03/25 @ . Cardiology consulted 04/25: Recommendations: Discontinue plavix. Start Aspirin 81mg daily. Hold eliquis indefinitely. Outpatient follow up with patient's garbage collector Dr. Dahl. Assessment & Plan (04/26/2025 10:07 AM CDT): TTE (02/06/25): Severe aortic stenosis. Peak Velocity of 4.06 m/s. Peak gradient of 66.0 mmHg. Mean gradient of 40.0 mmHg. Valve area of 0.9 cm2. Aortic cusps appear severely calcified. Trileaflet aortic valve. Mild aortic valve regurgitation. S/p TAVR on 03/25 @ . Cardiology consulted 04/25: Recommendations: Discontinue plavix. Start Aspirin 81mg daily. Hold eliquis indefinitely. Outpatient follow up with patient's garbage collector Dr. Dahl. Assessment & Plan (04/25/2025 10:43 AM CDT): TTE (02/06/25): Severe aortic stenosis. Peak Velocity of 4.06 m/s. Peak gradient of 66.0 mmHg. Mean gradient of 40.0 mmHg. Valve area of 0.9 cm2. Aortic cusps appear severely calcified. Trileaflet aortic valve. Mild aortic valve regurgitation. S/p TAVR on 03/25 @ . Cardiology consulted 04/25: Recommendations: Discontinue plavix. Start Aspirin 81mg daily. Hold eliquis indefinitely. Outpatient follow up with patient's garbage collector Dr. Dahl. Assessment & Plan (04/24/2025 11:01 AM CDT): TTE (02/06/25): Severe aortic stenosis. Peak Velocity of 4.06 m/s. Peak gradient of 66.0 mmHg. Mean gradient of 40.0 mmHg. Valve area of 0.9 cm2. Aortic cusps appear severely calcified. Trileaflet aortic valve. Mild aortic valve regurgitation. S/p TAVR on 03/25 @ . Assessment & Plan (04/23/2025 2:21 PM CDT): TTE (02/06/25): Severe aortic stenosis. Peak Velocity of 4.06 m/s. Peak gradient of 66.0 mmHg. Mean gradient of 40.0 mmHg. Valve area of 0.9 cm2. Aortic cusps appear severely calcified. Trileaflet aortic valve. Mild aortic valve regurgitation. S/p TAVR on 03/25 @ . Assessment & Plan (04/23/2025 6:07 AM CDT): TTE (02/06/25): Severe aortic stenosis. Peak Velocity of 4.06 m/s. Peak gradient of 66.0 mmHg. Mean gradient of 40.0 mmHg. Valve area of 0.9 cm2. Aortic cusps appear severely calcified. Trileaflet aortic valve. Mild aortic valve regurgitation. S/p TAVR on 03/25 @ . Assessment & Plan (04/21/2025 9:58 AM CDT): TTE (02/06/25): Severe aortic stenosis. Peak Velocity of 4.06 m/s. Peak gradient of 66.0 mmHg. Mean gradient of 40.0 mmHg. Valve area of 0.9 cm2. Aortic cusps appear severely calcified. Trileaflet aortic valve. Mild aortic valve regurgitation. S/p TAVR on 03/25 @ . Assessment & Plan (04/20/2025 2:26 PM CDT): TTE (02/06/25): Severe aortic stenosis. Peak Velocity of 4.06 m/s. Peak gradient of 66.0 mmHg. Mean gradient of 40.0 mmHg. Valve area of 0.9 cm2. Aortic cusps appear severely calcified. Trileaflet aortic valve. Mild aortic valve regurgitation. S/p TAVR on 03/25 @ . Assessment & Plan (04/19/2025 12:35 PM CDT): TTE (02/06/25): Severe aortic stenosis. Peak Velocity of 4.06 m/s. Peak gradient of 66.0 mmHg. Mean gradient of 40.0 mmHg. Valve area of 0.9 cm2. Aortic cusps appear severely calcified. Trileaflet aortic valve. Mild aortic valve regurgitation. S/p TAVR on 03/25 @ . Assessment & Plan (04/18/2025 4:09 PM CDT): TTE (02/06/25): Severe aortic stenosis. Peak Velocity of 4.06 m/s. Peak gradient of 66.0 mmHg. Mean gradient of 40.0 mmHg. Valve area of 0.9 cm2. Aortic cusps appear severely calcified. Trileaflet aortic valve. Mild aortic valve regurgitation. S/p TAVR on 03/25 @ . Assessment & Plan (04/17/2025 4:37 PM CDT): TTE (02/06/25): Severe aortic stenosis. Peak Velocity of 4.06 m/s. Peak gradient of 66.0 mmHg. Mean gradient of 40.0 mmHg. Valve area of 0.9 cm2. Aortic cusps appear severely calcified. Trileaflet aortic valve. Mild aortic valve regurgitation. S/p TAVR on 03/25 @ . Assessment & Plan (04/16/2025 1:42 PM CDT): TTE (02/06/25): Severe aortic stenosis. Peak Velocity of 4.06 m/s. Peak gradient of 66.0 mmHg. Mean gradient of 40.0 mmHg. Valve area of 0.9 cm2. Aortic cusps appear severely calcified. Trileaflet aortic valve. Mild aortic valve regurgitation. S/p TAVR on 03/25 @ . Assessment & Plan (04/15/2025 8:16 AM CDT): TTE (02/06/25): Severe aortic stenosis. Peak Velocity of 4.06 m/s. Peak gradient of 66.0 mmHg. Mean gradient of 40.0 mmHg. Valve area of 0.9 cm2. Aortic cusps appear severely calcified. Trileaflet aortic valve. Mild aortic valve regurgitation. S/p TAVR on 03/25 @ . Assessment & Plan (04/14/2025 8:46 AM CDT): TTE (02/06/25): Severe aortic stenosis. Peak Velocity of 4.06 m/s. Peak gradient of 66.0 mmHg. Mean gradient of 40.0 mmHg. Valve area of 0.9 cm2. Aortic cusps appear severely calcified. Trileaflet aortic valve. Mild aortic valve regurgitation. S/p TAVR on 03/25 @ . Assessment & Plan (04/13/2025 9:00 AM CDT): TTE (02/06/25): Severe aortic stenosis. Peak Velocity of 4.06 m/s. Peak gradient of 66.0 mmHg. Mean gradient of 40.0 mmHg. Valve area of 0.9 cm2. Aortic cusps appear severely calcified. Trileaflet aortic valve. Mild aortic valve regurgitation. S/p TAVR on 03/25 @ . Assessment & Plan (04/12/2025 12:46 PM CDT): TTE (02/06/25): Severe aortic stenosis. Peak Velocity of 4.06 m/s. Peak gradient of 66.0 mmHg. Mean gradient of 40.0 mmHg. Valve area of 0.9 cm2. Aortic cusps appear severely calcified. Trileaflet aortic valve. Mild aortic valve regurgitation. S/p TAVR on 03/25 @ . Assessment & Plan (04/11/2025 11:36 AM CDT): TTE (02/06/25): Severe aortic stenosis. Peak Velocity of 4.06 m/s. Peak gradient of 66.0 mmHg. Mean gradient of 40.0 mmHg. Valve area of 0.9 cm2. Aortic cusps appear severely calcified. Trileaflet aortic valve. Mild aortic valve regurgitation. S/p TAVR on 03/25 @ . Assessment & Plan (04/10/2025 4:18 PM CDT): TTE (02/06/25): Severe aortic stenosis. Peak Velocity of 4.06 m/s. Peak gradient of 66.0 mmHg. Mean gradient of 40.0 mmHg. Valve area of 0.9 cm2. Aortic cusps appear severely calcified. Trileaflet aortic valve. Mild aortic valve regurgitation. S/p TAVR on 03/25 @ . Assessment & Plan (04/09/2025 9:12 AM CDT): TTE (02/06/25): Severe aortic stenosis. Peak Velocity of 4.06 m/s. Peak gradient of 66.0 mmHg. Mean gradient of 40.0 mmHg. Valve area of 0.9 cm2. Aortic cusps appear severely calcified. Trileaflet aortic valve. Mild aortic valve regurgitation. S/p TAVR on 03/25 @ . Assessment & Plan (04/08/2025 12:13 PM CDT): TTE (02/06/25): Severe aortic stenosis. Peak Velocity of 4.06 m/s. Peak gradient of 66.0 mmHg. Mean gradient of 40.0 mmHg. Valve area of 0.9 cm2. Aortic cusps appear severely calcified. Trileaflet aortic valve. Mild aortic valve regurgitation. S/p TAVR on 03/25 @ . Assessment & Plan (04/07/2025 11:34 AM CDT): TTE (02/06/25): Severe aortic stenosis. Peak Velocity of 4.06 m/s. Peak gradient of 66.0 mmHg. Mean gradient of 40.0 mmHg. Valve area of 0.9 cm2. Aortic cusps appear severely calcified. Trileaflet aortic valve. Mild aortic valve regurgitation. S/p TAVR on 03/25 @ . Assessment & Plan (04/06/2025 10:54 AM CDT): TTE (02/06/25): Severe aortic stenosis. Peak Velocity of 4.06 m/s. Peak gradient of 66.0 mmHg. Mean gradient of 40.0 mmHg. Valve area of 0.9 cm2. Aortic cusps appear severely calcified. Trileaflet aortic valve. Mild aortic valve regurgitation. S/p TAVR on 03/25 @ . Assessment & Plan (04/05/2025 12:28 PM CDT): TTE (02/06/25): Severe aortic stenosis. Peak Velocity of 4.06 m/s. Peak gradient of 66.0 mmHg. Mean gradient of 40.0 mmHg. Valve area of 0.9 cm2. Aortic cusps appear severely calcified. Trileaflet aortic valve. Mild aortic valve regurgitation. S/p TAVR on 03/25 @ . Assessment & Plan (04/04/2025 11:26 AM CDT): TTE (02/06/25): Severe aortic stenosis. Peak Velocity of 4.06 m/s. Peak gradient of 66.0 mmHg. Mean gradient of 40.0 mmHg. Valve area of 0.9 cm2. Aortic cusps appear severely calcified. Trileaflet aortic valve. Mild aortic valve regurgitation. S/p TAVR on 03/25 @ . Assessment & Plan (04/03/2025 11:53 AM CDT): TTE (02/06/25): Severe aortic stenosis. Peak Velocity of 4.06 m/s. Peak gradient of 66.0 mmHg. Mean gradient of 40.0 mmHg. Valve area of 0.9 cm2. Aortic cusps appear severely calcified. Trileaflet aortic valve. Mild aortic valve regurgitation. S/p TAVR on 03/25 @ . Assessment & Plan (04/02/2025 10:42 AM CDT): TTE (02/06/25): Severe aortic stenosis. Peak Velocity of 4.06 m/s. Peak gradient of 66.0 mmHg. Mean gradient of 40.0 mmHg. Valve area of 0.9 cm2. Aortic cusps appear severely calcified. Trileaflet aortic valve. Mild aortic valve regurgitation. S/p TAVR on 03/25 @ . Assessment & Plan (04/01/2025 7:24 AM CDT): TTE (02/06/25): Severe aortic stenosis. Peak Velocity of 4.06 m/s. Peak gradient of 66.0 mmHg. Mean gradient of 40.0 mmHg. Valve area of 0.9 cm2. Aortic cusps appear severely calcified. Trileaflet aortic valve. Mild aortic valve regurgitation. S/p TAVR on 03/25 @ . Assessment & Plan (03/31/2025 2:26 PM CDT): TTE (02/06/25): Severe aortic stenosis. Peak Velocity of 4.06 m/s. Peak gradient of 66.0 mmHg. Mean gradient of 40.0 mmHg. Valve area of 0.9 cm2. Aortic cusps appear severely calcified. Trileaflet aortic valve. Mild aortic valve regurgitation. S/p TAVR on 03/25 @ . Coronary artery disease invo lving [place] coronary artery of [place] heart 07/24/2024 Asthma 03/26/2024 Assessment & Plan (05/10/2025 7:59 AM CDT): IMPROVING Acute respiratory failure multifactorial. Now off oxygen Baseline Asthma and ERIKA on CPAP. Post shock/PEA arrest requiring intubation 03/26-03/30 c/b pneumonia bilateral pneumothorax. 2/2 compressions after PEA arrest 03/27 s/p placement of bilateral chest tubes - chest tubes removed 04/02 & F/U Chest x-ray stable Chest tube management-now Dc'd 05/02 Increased diuretics from 40 lasix po BID to 40 IV BID 05/02 Bilateral pleural effusions on x-ray 05/01 and new oxygen requirement 05/02. 1.3 L out, goal 1.5-2 L but overall +220ml. Repeat chest x-ray decreased effusions. Restricting fluids to <1.5L. 05/03 Urine output 950 documented but blood pressure stable with diuresis, improving. Follow electrolytes, replaced mag and potassium as needed 05/04 Increased Lasix from 40 BID to 60 BID IV 05/05 Lasix 80mg PO BID PLAN - Home inhalers: Breo in place of Dulera (not in formulary), continue scheduled albuterol nebs - Resume home [id number] adherent to treatment - IS --Follow up CXR in AM, lung sounds decreased on the RLL --Follow up CT if new symptoms Assessment & Plan (05/09/2025 7:59 AM CDT): IMPROVING Acute respiratory failure multifactorial. Now off oxygen Baseline Asthma and ERIKA on CPAP. Post shock/PEA arrest requiring intubation 03/26-03/30 c/b pneumonia bilateral pneumothorax. 2/2 compressions after PEA arrest 03/27 s/p placement of bilateral chest tubes - chest tubes removed 04/02 & F/U Chest x-ray stable Chest tube management-now Dc'd 05/02 Increased diuretics from 40 lasix po BID to 40 IV BID 05/02 Bilateral pleural effusions on x-ray 05/01 and new oxygen requirement 05/02. 1.3 L out, goal 1.5-2 L but overall +220ml. Repeat chest x-ray decreased effusions. Restricting fluids to <1.5L. 05/03 Urine output 950 documented but blood pressure stable with diuresis, improving. Follow electrolytes, replaced mag and potassium as needed 05/04 Increased Lasix from 40 BID to 60 BID IV 05/05 Lasix 80mg PO BID PLAN - Home inhalers: Breo in place of Dulera (not in formulary), continue scheduled albuterol nebs - Resume home [id number] adherent to treatment - IS --Follow up CXR in AM, lung sounds decreased on the RLL --Follow up CT if new symptoms Assessment & Plan (05/08/2025 7:40 AM CDT): IMPROVING Acute respiratory failure multifactorial. Now off oxygen Baseline Asthma and ERIKA on CPAP. Post shock/PEA arrest requiring intubation 03/26-03/30 c/b pneumonia bilateral pneumothorax. 2/2 compressions after PEA arrest 03/27 s/p placement of bilateral chest tubes - chest tubes removed 04/02 & F/U Chest x-ray stable Chest tube management-now Dc'd 05/02 Increased diuretics from 40 lasix po BID to 40 IV BID 05/02 Bilateral pleural effusions on x-ray 05/01 and new oxygen requirement 05/02. 1.3 L out, goal 1.5-2 L but overall +220ml. Repeat chest x-ray decreased effusions. Restricting fluids to <1.5L. 05/03 Urine output 950 documented but blood pressure stable with diuresis, improving. Follow electrolytes, replaced mag and potassium as needed 05/04 Increased Lasix from 40 BID to 60 BID IV 05/05 Lasix 80mg PO BID PLAN - Home inhalers: Breo in place of Dulera (not in formulary), continue scheduled albuterol nebs - Resume home [id number] adherent to treatment - IS --Follow up CXR in AM, lung sounds decreased on the RLL --Follow up CT if new symptoms Assessment & Plan (05/07/2025 7:31 AM CDT): IMPROVING Acute respiratory failure multifactorial. Now off oxygen Baseline Asthma and ERIKA on CPAP. Post shock/PEA arrest requiring intubation 03/26-03/30 c/b pneumonia bilateral pneumothorax. 2/2 compressions after PEA arrest 03/27 s/p placement of bilateral chest tubes - chest tubes removed 04/02 & F/U Chest x-ray stable Chest tube management-now Dc'd 05/02 Increased diuretics from 40 lasix po BID to 40 IV BID 05/02 Bilateral pleural effusions on x-ray 05/01 and new oxygen requirement 05/02. 1.3 L out, goal 1.5-2 L but overall +220ml. Repeat chest x-ray decreased effusions. Restricting fluids to <1.5L. 05/03 Urine output 950 documented but blood pressure stable with diuresis, improving. Follow electrolytes, replaced mag and potassium as needed 05/04 Increased Lasix from 40 BID to 60 BID IV 05/05 Lasix 80mg PO BID PLAN - Home inhalers: Breo in place of Dulera (not in formulary), continue scheduled albuterol nebs - Resume home [id number] adherent to treatment - IS --Follow up CXR in AM, lung sounds decreased on the RLL --Follow up CT if new symptoms Assessment & Plan (05/06/2025 4:49 PM CDT): IMPROVING Acute respiratory failure multifactorial. Now off oxygen Baseline Asthma and ERIKA on CPAP. Post shock/PEA arrest requiring intubation 03/26-03/30 c/b pneumonia bilateral pneumothorax. 2/2 compressions after PEA arrest 03/27 s/p placement of bilateral chest tubes - chest tubes removed 04/02 & F/U Chest x-ray stable Chest tube management-now Dc'd 05/02 Increased diuretics from 40 lasix po BID to 40 IV BID 05/02 Bilateral pleural effusions on x-ray 05/01 and new oxygen requirement 05/02. 1.3 L out, goal 1.5-2 L but overall +220ml. Repeat chest x-ray decreased effusions. Restricting fluids to <1.5L. 05/03 Urine output 950 documented but blood pressure stable with diuresis, improving. Follow electrolytes, replaced mag and potassium as needed 05/04 Increased Lasix from 40 BID to 60 BID IV 05/05 Lasix 80mg PO BID PLAN - Home inhalers: Breo in place of Dulera (not in formulary), continue scheduled albuterol nebs - Resume home [id number] adherent to treatment - IS --Follow up CXR in AM, lung sounds decreased on the RLL --Follow up CT if new symptoms Assessment & Plan (05/05/2025 3:50 PM CDT): IMPROVING Acute respiratory failure multifactorial. Now off oxygen Baseline Asthma and ERIKA on CPAP. Post shock/PEA arrest requiring intubation 03/26-03/30 c/b pneumonia bilateral pneumothorax. 2/2 compressions after PEA arrest 03/27 s/p placement of bilateral chest tubes - chest tubes removed 04/02 & F/U Chest x-ray stable Chest tube management-now Dc'd 05/02 Increased diuretics from 40 lasix po BID to 40 IV BID 05/02 Bilateral pleural effusions on x-ray 05/01 and new oxygen requirement 05/02. 1.3 L out, goal 1.5-2 L but overall +220ml. Repeat chest x-ray decreased effusions. Restricting fluids to <1.5L. 05/03 Urine output 950 documented but blood pressure stable with diuresis, improving. Follow electrolytes, replaced mag and potassium as needed 05/04 Increased Lasix from 40 BID to 60 BID IV 05/05 Lasix 80mg PO BID PLAN - Home inhalers: Breo in place of Dulera (not in formulary), continue scheduled albuterol nebs - Resume home [id number] adherent to treatment - IS --Follow up CXR in AM, lung sounds decreased on the RLL --Follow up CT if new symptoms Assessment & Plan (05/04/2025 10:31 AM CDT): Baseline Asthma and ERIKA on CPAP. Post shock/PEA arrest requiring intubation 03/26-03/30 c/b pneumonia bilateral pneumothorax - chest tube management-now DC'd - Home inhalers: Breo in place of Dulera (not in formulary), continue scheduled albuterol nebs - Resume home [id number] adherent to treatment - IS -Increased O2 requirement overnight, 2L for sat's 90% 05/01 at rest. Weaned off during the day but 88% again overnight so back on 2L 05/02 Increased diuretics from 40 lasix po BID to 40 IV BID 05/02 Bilateral pleural effusions on x-ray 05/01 and new oxygen requirement 05/02. 1.3 L out, goal 1.5-2 L but overall +220ml. Repeat chest x-ray decreased effusions. Restricting fluids to <1.5L. 05/03 Urine output 950 documented but blood pressure stable with diuresis, improving. Follow electrolytes, replaced mag and potassium as needed PLAN --Continue scheduled potassium 10meq BID --Mag 1.5<1.8 after 2G. Continue to follow mag. Receiving mag 400mg daily Assessment & Plan (05/03/2025 1:23 PM CDT): Baseline Asthma and ERIKA on CPAP. Post shock/PEA arrest requiring intubation 03/26-03/30 c/b pneumonia bilateral pneumothorax - chest tube management-now DC'd - Home inhalers: Breo in place of Dulera (not in formulary), continue scheduled albuterol nebs - Resume home [id number] adherent to treatment - IS -Increased O2 requirement overnight, 2L for sat's 90% 05/01 at rest. Weaned off during the day but 88% again overnight so back on 2L -Increased diuretics from 40 lasix po BID to 40 IV BID 05/02 -Bilateral pleural effusions on x-ray 05/01 and new oxygen requirement 05/02. 1.3 L out, goal 1.5-2 L but overall +220ml. Repeating chest x-ray today. Restricting fluids to <1.5L. May need to increase IV diuretics if blood pressure tolerates, 102/58 today (05/03) Thoracentesis if persistent effusion despite diuretics --Follow electrolytes, replace mag and potassium as needed --Scheduled potassium 10meq BID --Mag 1.5<1.8 after 2G. Continue to follow mag. Receiving mag 400mg daily Assessment & Plan (05/02/2025 1:13 PM CDT): Baseline Asthma and ERIKA on CPAP. Post shock/PEA arrest requiring intubation 03/26-03/30 c/b pneumonia bilateral pneumothorax - chest tube management-now DC'd - Home inhalers: Breo in place of Dulera (not in formulary), continue scheduled albuterol nebs - Resume home [id number] adherent to treatment - IS -Increased O2 requirement overnight, 2L for sat's 90's at rest. -Increased diuretics from 40 lasix po BID to 40 IV BID -Bilateral pleural effusions on x-ray 05/01 and new oxygen requirement this morning. Repeat x-ray after diuresing. 1.1 L out yesterday, goal 1.5-2 L --Follow electrolytes, replace mag and potassium as needed --Scheduled potassium 10meq BID --Mag 1.5<1.8 after 2G. Additional 2G IV today Assessment & Plan (04/30/2025 5:18 PM CDT): Baseline Asthma and ERIKA on CPAP. Post shock/PEA arrest requiring intubation 03/26-03/30 c/b pneumonia bilateral pneumothorax - chest tube management-now DC'd - Home inhalers: Breo in place of Dulera (not in formulary), continue scheduled albuterol nebs - Resume home [id number] adherent to treatment - IS Assessment & Plan (04/29/2025 10:33 AM CDT): Baseline Asthma and ERIKA on CPAP. Post shock/PEA arrest requiring intubation 03/26-03/30 c/b pneumonia bilateral pneumothorax - chest tube management-now DC'd - Home inhalers: Breo in place of Dulera (not in formulary), continue scheduled albuterol nebs - Resume home [id number] adherent to treatment - IS Assessment & Plan (04/28/2025 11:48 AM CDT): Baseline Asthma and ERIKA on CPAP. Post shock/PEA arrest requiring intubation 03/26-03/30 c/b pneumonia bilateral pneumothorax - chest tube management-now DC'd - Home inhalers: Breo in place of Dulera (not in formulary), continue scheduled albuterol nebs - Resume home [id number] adherent to treatment - IS Assessment & Plan (04/27/2025 9:58 AM CDT): Baseline Asthma and ERIKA on CPAP. Post shock/PEA arrest requiring intubation 03/26-03/30 c/b pneumonia bilateral pneumothorax - chest tube management-now DC'd - Home inhalers: Breo in place of Dulera (not in formulary), continue scheduled albuterol nebs - Resume home [id number] adherent to treatment - IS Assessment & Plan (04/26/2025 10:07 AM CDT): Baseline Asthma and ERKIA on CPAP. Post shock/PEA arrest requiring intubation 03/26-03/30 c/b pneumonia bilateral pneumothorax - chest tube management-now DC'd - Home inhalers: Breo in place of Dulera (not in formulary), continue scheduled albuterol nebs - Resume home [id number] adherent to treatment - IS Assessment & Plan (04/25/2025 10:43 AM CDT): Baseline Asthma and ERIKA on CPAP. Post shock/PEA arrest requiring intubation 03/26-03/30 c/b pneumonia bilateral pneumothorax - chest tube management-now DC'd - Home inhalers: Breo in place of Dulera (not in formulary), continue scheduled albuterol nebs - Resume home [id number] adherent to treatment - IS Assessment & Plan (04/24/2025 11:01 AM CDT): Baseline Asthma and ERIKA on CPAP. Post shock/PEA arrest requiring intubation 03/26-03/30 c/b pneumonia bilateral pneumothorax - chest tube management-now DC'd - Home inhalers: Breo in place of Dulera (not in formulary), continue scheduled albuterol nebs - Resume home [id number]-ver adherent to treatment - IS Assessment & Plan (04/23/2025 2:21 PM CDT): Baseline Asthma and ERIKA on CPAP. Post shock/PEA arrest requiring intubation 03/26-03/30 c/b pneumonia bilateral pneumothorax - chest tube management-now DC'd - Home inhalers: Breo in place of Dulera (not in formulary), continue scheduled albuterol nebs - Resume home [id number] adherent to treatment - IS Assessment & Plan (04/23/2025 6:07 AM CDT): Baseline Asthma and ERIKA on CPAP. Post shock/PEA arrest requiring intubation 03/26-03/30 c/b pneumonia bilateral pneumothorax - chest tube management-now DC'd - Home inhalers: Breo in place of Dulera (not in formulary), continue scheduled albuterol nebs - Resume home [id number] adherent to treatment - IS Assessment & Plan (04/21/2025 8:10 PM CDT): Baseline Asthma and ERIKA on CPAP. Post shock/PEA arrest requiring intubation 03/26-03/30 c/b pneumonia bilateral pneumothorax - chest tube management-now DC'd - Home inhalers: Breo in place of Dulera (not in formulary), continue scheduled albuterol nebs - Resume home inxi-[id number] adherent to treatment - IS Assessment & Plan (04/20/2025 2:26 PM CDT): Baseline Asthma and ERIKA on CPAP. Post shock/PEA arrest requiring intubation 03/26-03/30 c/b pneumonia bilateral pneumothorax - chest tube management-now DC'd - Home inhalers: Breo in place of Dulera (not in formulary), continue scheduled albuterol nebs - Resume home auto-CPAP - IS Assessment & Plan (04/19/2025 12:35 PM CDT): Baseline Asthma and ERIKA on CPAP. Post shock/PEA arrest requiring intubation 03/26-03/30 c/b pneumonia bilateral pneumothorax - chest tube management-now DC'd - Home inhalers: Breo in place of Dulera (not in formulary), continue scheduled albuterol nebs - Resume home auto-CPAP - IS Assessment & Plan (04/18/2025 4:09 PM CDT): Baseline Asthma and ERIKA on CPAP. Post shock/PEA arrest requiring intubation 03/26-03/30 c/b pneumonia bilateral pneumothorax - chest tube management-now DC'd - Home inhalers: Breo in place of Dulera (not in formulary), continue scheduled albuterol nebs - Resume home auto-CPAP - IS Assessment & Plan (04/17/2025 4:37 PM CDT): Baseline Asthma and ERIKA on CPAP. Post shock/PEA arrest requiring intubation 03/26-03/30 c/b pneumonia bilateral pneumothorax - chest tube management-now DC'd - Home inhalers: Breo in place of Dulera (not in formulary), continue scheduled albuterol nebs - Resume home auto-CPAP - IS Assessment & Plan (04/16/2025 1:42 PM CDT): Baseline Asthma and ERIKA on CPAP. Post shock/PEA arrest requiring intubation 03/26-03/30 c/b pneumonia bilateral pneumothorax - chest tube management-now DC'd - Home inhalers: Breo in place of Dulera (not in formulary), continue scheduled albuterol nebs - Resume home auto-CPAP - IS Assessment & Plan (04/15/2025 12:00 PM CDT): Baseline Asthma and ERIKA on CPAP. Post shock/PEA arrest requiring intubation 03/26-03/30 c/b pneumonia bilateral pneumothorax - chest tube management-now DC'd - Home inhalers: Breo in place of Dulera (not in formulary), continue scheduled albuterol nebs - Resume home auto-CPAP - IS Assessment & Plan (04/14/2025 8:46 AM CDT): Baseline Asthma and ERIKA on CPAP. Post shock/PEA arrest requiring intubation 03/26-03/30 c/b pneumonia bilateral pneumothorax - chest tube management-now DC'd - Home inhalers: Breo in place of Dulera (not in formulary), continue prn albuterol-uses nebs-says MDI not working - Resume home auto-CPAP - IS Assessment & Plan (04/13/2025 9:00 AM CDT): Home inhalers: Dulera, prn Allbuterol - Breo in place of Dulera (not in formulary), continue prn albuterol-uses nebs- says MDI not working Assessment & Plan (04/12/2025 12:46 PM CDT): Home inhalers: Dulera, prn Allbuterol - Breo in place of Dulera (not in formulary), continue prn albuterol-uses nebs- says MDI not working Assessment & Plan (04/11/2025 11:36 AM CDT): Home inhalers: Dulera, prn Allbuterol - Breo in place of Dulera (not in formulary), continue prn albuterol-uses nebs- says MDI not working Assessment & Plan (04/10/2025 4:18 PM CDT): Home inhalers: Dulera, prn Allbuterol - Breo in place of Dulera (not in formulary), continue prn albuterol-uses nebs- says MDI not working Assessment & Plan (04/09/2025 9:12 AM CDT): Home inhalers: Dulera, prn Allbuterol - Breo in place of Dulera (not in formulary), continue prn albuterol-uses nebs- says MDI not working Assessment & Plan (04/08/2025 12:13 PM CDT): Home inhalers: Dulera, prn Allbuterol - Breo in place of Dulera (not in formulary), continue prn albuterol-uses nebs- says MDI not working Assessment & Plan (04/07/2025 11:34 AM CDT): Home inhalers: Dulera, prn Allbuterol - Breo in place of Dulera (not in formulary), continue prn albuterol-uses nebs- says MDI not working Assessment & Plan (04/06/2025 10:54 AM CDT): Home inhalers: Dulera, prn Allbuterol - Breo in place of Dulera (not in formulary), continue prn albuterol-uses nebs- says MDI not working Assessment & Plan (04/05/2025 12:28 PM CDT): Home inhalers: Dulera, prn Allbuterol - Breo in place of Dulera (not in formulary), continue prn albuterol-uses nebs- says MDI not working Assessment & Plan (04/04/2025 11:26 AM CDT): Home inhalers: Dulera, prn Allbuterol - Breo in place of Dulera (not in formulary), continue prn albuterol-uses nebs- says MDI not working Assessment & Plan (04/03/2025 11:53 AM CDT): Home inhalers: Dulera, prn Allbuterol - Breo in place of Dulera (not in formulary), continue prn albuterol Assessment & Plan (04/02/2025 10:42 AM CDT): Home inhalers: Dulera, prn Allbuterol - Breo in place of Dulera (not in formulary), continue prn albuterol Assessment & Plan (04/01/2025 7:24 AM CDT): Home inhalers: Dulera, prn Allbuterol - Breo in place of Dulera (not in formulary), continue prn albuterol Assessment & Plan (03/31/2025 2:26 PM CDT): Home inhalers: Dulera, prn Allbuterol - Breo in place of Dulera (not in formulary), continue prn albuterol Chest pressure 12/27/2023 Weakness 07/12/2023 Assessment & Plan (05/10/2025 7:59 AM CDT): IMPROVING but still limited by shortness of breath and weakness from long hospitalization Baseline uses bilateral crutches (at bedside) for past 10 years since she had gait instability associated with sensorineural hearing loss felt to be viral labyrinthitis as well as multiple knee problems related to OA, knee replacements and septic knee. Still able to drive and lives independently. - PT/OT eval - rehab candidate-CM awaiting acceptance from an Inpatient Rehab Facility-on hold with GI bleed -Resume rehab/OT/PT, c/b orthostasis -[facility], planning admission tomorrow- Strength improving but still short of breath with activity and not tolerating activity for long yet, likely 2/2 pleural effusion and deconditioning. Assessment & Plan (05/09/2025 7:59 AM CDT): IMPROVING but still limited by shortness of breath and weakness from long hospitalization Baseline uses bilateral crutches (at bedside) for past 10 years since she had gait instability associated with sensorineural hearing loss felt to be viral labyrinthitis as well as multiple knee problems related to OA, knee replacements and septic knee. Still able to drive and lives independently. - PT/OT eval - rehab candidate-CM awaiting acceptance from an Inpatient Rehab Facility-on hold with GI bleed -Resume rehab/OT/PT, c/b orthostasis -referred to [facility], planning admission tomorrow- Strength improving but still short of breath with activity and not tolerating activity for long yet, likely 2/2 pleural effusion and deconditioning. Assessment & Plan (05/08/2025 7:40 AM CDT): IMPROVING but still limited by shortness of breath and weakness from long hospitalization Baseline uses bilateral crutches (at bedside) for past 10 years since she had gait instability associated with sensorineural hearing loss felt to be viral labyrinthitis as well as multiple knee problems related to OA, knee replacements and septic knee. Still able to drive and lives independently. - PT/OT eval - rehab candidate-CM awaiting acceptance from an Inpatient Rehab Facility-on hold with GI bleed -Resume rehab/OT/PT, c/b orthostasis -referred to [facility], planning admission tomorrow- Strength improving but still short of breath with activity and not tolerating activity for long yet, likely 2/2 pleural effusion and deconditioning. Assessment & Plan (05/07/2025 7:31 AM CDT): IMPROVING but still limited by shortness of breath and weakness from long hospitalization Baseline uses bilateral crutches (at bedside) for past 10 years since she had gait instability associated with sensorineural hearing loss felt to be viral labyrinthitis as well as multiple knee problems related to OA, knee replacements and septic knee. Still able to drive and lives independently. - PT/OT eval - rehab candidate-CM awaiting acceptance from an Inpatient Rehab Facility-on hold with GI bleed -Resume rehab/OT/PT, c/b orthostasis -referred to [facility], planning admission tomorrow- Strength improving but still short of breath with activity and not tolerating activity for long yet, likely 2/2 pleural effusion and deconditioning. Assessment & Plan (05/06/2025 8:47 AM CDT): IMPROVING but still limited by shortness of breath and weakness from long hospitalization Baseline uses bilateral crutches (at bedside) for past 10 years since she had gait instability associated with sensorineural hearing loss felt to be viral labyrinthitis as well as multiple knee problems related to OA, knee replacements and septic knee. Still able to drive and lives independently. - PT/OT eval - rehab candidate-CM awaiting acceptance from an Inpatient Rehab Facility-on hold with GI bleed -Resume rehab/OT/PT, c/b orthostasis -referred to [facility], planning admission tomorrow- Strength improving but still short of breath with activity and not tolerating activity for long yet, likely 2/2 pleural effusion and deconditioning. Assessment & Plan (05/05/2025 3:50 PM CDT): IMPROVING but still limited by shortness of breath and weakness from long hospitalization Baseline uses bilateral crutches (at bedside) for past 10 years since she had gait instability associated with sensorineural hearing loss felt to be viral labyrinthitis as well as multiple knee problems related to OA, knee replacements and septic knee. Still able to drive and lives independently. - PT/OT eval - rehab candidate-CM awaiting acceptance from an Inpatient Rehab Facility-on hold with GI bleed -Resume rehab/OT/PT, c/b orthostasis -referred to [facility], planning admission tomorrow- Strength improving but still short of breath with activity and not tolerating activity for long yet, likely 2/2 pleural effusion and deconditioning. Assessment & Plan (05/04/2025 10:31 AM CDT): Baseline uses bilateral crutches (at bedside) for past 10 years since she had gait instability associated with sensorineural hearing loss felt to be viral labyrinthitis as well as multiple knee problems related to OA, knee replacements and septic knee. Still able to drive and lives independently. - PT/OT eval - rehab candidate-CM awaiting acceptance from an Inpatient Rehab Facility-on hold with GI bleed -Resume rehab/OT/PT, c/b orthostasis -referred to [facility]- Strength improving but still short of breath with activity and not tolerating activity for long yet, likely 2/2 pleural effusion and deconditioning. Assessment & Plan (05/03/2025 1:22 PM CDT): Baseline uses bilateral crutches (at bedside) for past 10 years since she had gait instability associated with sensorineural hearing loss felt to be viral labyrinthitis as well as multiple knee problems related to OA, knee replacements and septic knee. Still able to drive and lives independently. - PT/OT eval - rehab candidate-CM awaiting acceptance from an Inpatient Rehab Facility-on hold with GI bleed -Resume rehab/OT/PT, c/b orthostasis -referred to [facility]- Strength improving but still short of breath with activity and not tolerating activity for long yet, likely 2/2 pleural effusion and deconditioning. Assessment & Plan (05/02/2025 11:00 AM CDT): Baseline uses bilateral crutches (at bedside) for past 10 years since she had gait instability associated with sensorineural hearing loss felt to be viral labyrinthitis as well as multiple knee problems related to OA, knee replacements and septic knee. Still able to drive and lives independently. - PT/OT eval - rehab candidate-CM awaiting acceptance from an Inpatient Rehab Facility-on hold with GI bleed -Resume rehab/OT/PT, c/b orthostasis -refer to [facility] 04/29-ask OT/PT to reassess today Assessment & Plan (04/30/2025 5:18 PM CDT): Baseline uses bilateral crutches (at bedside) for past 10 years since she had gait instability associated with sensorineural hearing loss felt to be viral labyrinthitis as well as multiple knee problems related to OA, knee replacements and septic knee. Still able to drive and lives independently. - PT/OT eval - rehab candidate-CM awaiting acceptance from an Inpatient Rehab Facility-on hold with GI bleed -Resume rehab/OT/PT, c/b orthostasis [facility] OT/PT to reassess today Assessment & Plan (04/29/2025 10:33 AM CDT): Baseline uses bilateral crutches (at bedside) for past 10 years since she had gait instability associated with sensorineural hearing loss felt to be viral labyrinthitis as well as multiple knee problems related to OA, knee replacements and septic knee. Still able to drive and lives independently. - PT/OT eval - rehab candidate-CM awaiting acceptance from an Inpatient Rehab Facility-on hold with GI bleed -Resume rehab/OT/PT, c/b orthostasis -refer to [facility]- Stabilized 04/29-ask OT/PT to reassess today Assessment & Plan (04/28/2025 11:48 AM CDT): Baseline uses bilateral crutches (at bedside) for past 10 years since she had gait instability associated with sensorineural hearing loss felt to be viral labyrinthitis as well as multiple knee problems related to OA, knee replacements and septic knee. Still able to drive and lives independently. - PT/OT eval - rehab candidate-CM awaiting acceptance from an Inpatient Rehab Facility-on hold with GI bleed -Resume rehab/OT/PT, c/b orthostasis -refer to [facility]-? Stabilized by 04/29 Assessment & Plan (04/27/2025 9:58 AM CDT): Baseline uses bilateral crutches (at bedside) for past 10 years since she had gait instability associated with sensorineural hearing loss felt to be viral labyrinthitis as well as multiple knee problems related to OA, knee replacements and septic knee. Still able to drive and lives independently. - PT/OT eval - rehab candidate-CM awaiting acceptance from an Inpatient Rehab Facility-on hold with GI bleed -Resume rehab/OT/PT, c/b orthostasis -refer to [facility]-? Stabilized by 04/29 Assessment & Plan (04/26/2025 10:07 AM CDT): Baseline uses bilateral crutches (at bedside) for past 10 years since she had gait instability associated with sensorineural hearing loss felt to be viral labyrinthitis as well as multiple knee problems related to OA, knee replacements and septic knee. Still able to drive and lives independently. - PT/OT eval - rehab candidate-CM awaiting acceptance from an Inpatient Rehab Facility-on hold with GI bleed -Resume rehab/OT/PT, c/b orthostasis -refer to [facility]-? Stabilized by 04/29 Assessment & Plan (04/25/2025 10:43 AM CDT): Baseline uses bilateral crutches (at bedside) for past 10 years since she had gait instability associated with sensorineural hearing loss felt to be viral labyrinthitis as well as multiple knee problems related to OA, knee replacements and septic knee. Still able to drive and lives independently. - PT/OT eval - rehab candidate-CM awaiting acceptance from an Inpatient Rehab Facility-on hold with GI bleed -Resume rehab/OT/PT -refer to [facility] Assessment & Plan (04/24/2025 11:01 AM CDT): Baseline uses bilateral crutches (at bedside) for past 10 years since she had gait instability associated with sensorineural hearing loss felt to be viral labyrinthitis as well as multiple knee problems related to OA, knee replacements and septic knee. Still able to drive and lives independently. - PT/OT eval - rehab candidate-CM awaiting acceptance from an Inpatient Rehab Facility-on hold with GI bleed -Resume rehab/OT/PT Assessment & Plan (04/23/2025 2:21 PM CDT): Baseline uses bilateral crutches (at bedside) for past 10 years since she had gait instability associated with sensorineural hearing loss felt to be viral labyrinthitis as well as multiple knee problems related to OA, knee replacements and septic knee. Still able to drive and lives independently. - PT/OT eval - rehab candidate-CM awaiting acceptance from an Inpatient Rehab Facility-on hold with GI bleed Assessment & Plan (04/23/2025 6:07 AM CDT): Baseline uses bilateral crutches (at bedside) for past 10 years since she had gait instability associated with sensorineural hearing loss felt to be viral labyrinthitis as well as multiple knee problems related to OA, knee replacements and septic knee. Still able to drive and lives independently. - PT/OT eval - rehab candidate-CM awaiting acceptance from an Inpatient Rehab Facility Assessment & Plan (04/21/2025 9:58 AM CDT): Baseline uses bilateral crutches (at bedside) for past 10 years since she had gait instability associated with sensorineural hearing loss felt to be viral labyrinthitis as well as multiple knee problems related to OA, knee replacements and septic knee. Still able to drive and lives independently. - PT/OT eval - rehab candidate-CM awaiting acceptance from an Inpatient Rehab Facility Assessment & Plan (04/20/2025 2:26 PM CDT): Baseline uses bilateral crutches (at bedside) for past 10 years since she had gait instability associated with sensorineural hearing loss felt to be viral labyrinthitis as well as multiple knee problems related to OA, knee replacements and septic knee. Still able to drive and lives independently. - PT/OT eval - rehab candidate-CM awaiting acceptance from an Inpatient Rehab Facility Assessment & Plan (04/19/2025 12:35 PM CDT): Baseline uses bilateral crutches (at bedside) for past 10 years since she had gait instability associated with sensorineural hearing loss felt to be viral labyrinthitis as well as multiple knee problems related to OA, knee replacements and septic knee. Still able to drive and lives independently. - PT/OT eval - rehab candidate-CM awaiting acceptance from an Inpatient Rehab Facility Assessment & Plan (04/18/2025 4:09 PM CDT): Baseline uses bilateral crutches (at bedside) for past 10 years since she had gait instability associated with sensorineural hearing loss felt to be viral labyrinthitis as well as multiple knee problems related to OA, knee replacements and septic knee. Still able to drive and lives independently. - PT/OT eval - rehab candidate-CM awaiting acceptance from an Inpatient Rehab Facility Assessment & Plan (04/17/2025 4:37 PM CDT): Baseline uses bilateral crutches (at bedside) for past 10 years since she had gait instability associated with sensorineural hearing loss felt to be viral labyrinthitis as well as multiple knee problems related to OA, knee replacements and septic knee. Still able to drive and lives independently. - PT/OT eval - rehab candidate-CM awaiting acceptance from an Inpatient Rehab Facility Assessment & Plan (04/16/2025 1:42 PM CDT): Baseline uses bilateral crutches (at bedside) for past 10 years since she had gait instability associated with sensorineural hearing loss felt to be viral labyrinthitis as well as multiple knee problems related to OA, knee replacements and septic knee. Still able to drive and lives independently. - PT/OT eval - rehab candidate-CM awaiting acceptance from an Inpatient Rehab Facility Assessment & Plan (04/15/2025 8:16 AM CDT): Baseline uses bilateral crutches (at bedside) for past 10 years since she had gait instability associated with sensorineural hearing loss felt to be viral labyrinthitis as well as multiple knee problems related to OA, knee replacements and septic knee. Still able to drive and lives independently. - PT/OT eval - rehab candidate-CM awaiting acceptance from an Inpatient Rehab Facility Assessment & Plan (04/14/2025 8:46 AM CDT): Baseline uses bilateral crutches (at bedside) for past 10 years since she had gait instability associated with sensorineural hearing loss felt to be viral labyrinthitis as well as multiple knee problems related to OA, knee replacements and septic knee. Still able to drive and lives independently. - PT/OT eval - rehab candidate-CM awaiting acceptance from an Inpatient Rehab Facility Assessment & Plan (04/13/2025 9:00 AM CDT): Baseline uses bilateral crutches (at bedside) for past 10 years since she had gait instability associated with sensorineural hearing loss felt to be viral labyrinthitis as well as multiple knee problems related to OA, knee replacements and septic knee. Still able to drive and lives independently. - PT/OT eval - rehab candidate-CM awaiting acceptance from an Inpatient Rehab Facility Assessment & Plan (04/12/2025 12:46 PM CDT): Baseline uses bilateral crutches (at bedside) for past 10 years since she had gait instability associated with sensorineural hearing loss felt to be viral labyrinthitis as well as multiple knee problems related to OA, knee replacements and septic knee. Still able to drive and lives independently. - PT/OT eval - rehab candidate-CM awaiting acceptance from an Inpatient Rehab Facility Assessment & Plan (04/11/2025 11:36 AM CDT): Baseline uses bilateral crutches (at bedside) for past 10 years since she had gait instability associated with sensorineural hearing loss felt to be viral labyrinthitis as well as multiple knee problems related to OA, knee replacements and septic knee. Still able to drive and lives independently. - PT/OT eval - rehab candidate-CM awaiting acceptance from an Inpatient Rehab Facility Assessment & Plan (04/10/2025 4:18 PM CDT): Baseline uses bilateral crutches (at bedside) for past 10 years since she had gait instability associated with sensorineural hearing loss felt to be viral labyrinthitis as well as multiple knee problems related to OA, knee replacements and septic knee. Still able to drive and lives independently. - PT/OT eval - rehab candidate-CM awaiting acceptance from an Inpatient Rehab Facility Assessment & Plan (04/09/2025 9:12 AM CDT): Baseline uses bilateral crutches (at bedside) for past 10 years since she had gait instability associated with sensorineural hearing loss felt to be viral labyrinthitis as well as multiple knee problems related to OA, knee replacements and septic knee. Still able to drive and lives independently. - PT/OT eval-rehab candidate-CM awaiting acceptance from an Inpatient Rehab Facility Assessment & Plan (04/08/2025 12:13 PM CDT): Baseline uses bilateral crutches (at bedside) for past 10 years since she had gait instability associated with sensorineural hearing loss felt to be viral labyrinthitis as well as multiple knee problems related to OA, knee replacements and septic knee. Still able to drive and lives independently. - PT/OT eval-rehab candidate-CM awaiting acceptance from an Inpatient Rehab Facility Assessment & Plan (04/07/2025 11:34 AM CDT): Baseline uses bilateral crutches (at bedside) for past 10 years since she had gait instability associated with sensorineural hearing loss felt to be viral labyrinthitis as well as multiple knee problems related to OA, knee replacements and septic knee. Still able to drive and lives independently. - PT/OT eval-rehab candidate-CM awaiting acceptance from an Inpatient Rehab Facility Assessment & Plan (04/06/2025 10:54 AM CDT): Baseline uses bilateral crutches (at bedside) for past 10 years since she had gait instability associated with sensorineural hearing loss felt to be viral labyrinthitis as well as multiple knee problems related to OA, knee replacements and septic knee. Still able to drive and lives independently. - PT/OT eval-rehab candidate-CM awaiting acceptance from an Inpatient Rehab Facility Assessment & Plan (04/05/2025 12:28 PM CDT): Baseline uses bilateral crutches (at bedside) for past 10 years since she had gait instability associated with sensorineural hearing loss felt to be viral labyrinthitis as well as multiple knee problems related to OA, knee replacements and septic knee. Still able to drive and lives independently. - PT/OT eval-?rehab candidate? Assessment & Plan (04/04/2025 11:26 AM CDT): Baseline uses bilateral crutches (at bedside) for past 10 years since she had gait instability associated with sensorineural hearing loss felt to be viral labyrinthitis as well as multiple knee problems related to OA, knee replacements and septic knee. Still able to drive and lives independently. - PT/OT eval-?rehab candidate? Assessment & Plan (04/03/2025 11:53 AM CDT): Baseline uses bilateral crutches (at bedside) for past 10 years since she had gait instability associated with sensorineural hearing loss felt to be viral labyrinthitis as well as multiple knee problems related to OA, knee replacements and septic knee. Still able to drive and lives independently. - PT/OT eval-?rehab candidate? Assessment & Plan (04/02/2025 10:42 AM CDT): Baseline uses bilateral crutches (at bedside) for past 10 years since she had gait instability associated with sensorineural hearing loss felt to be viral labyrinthitis as well as multiple knee problems related to OA, knee replacements and septic knee. Still able to drive and lives independently. - PT/OT eval-?rehab candidate? Assessment & Plan (04/01/2025 1:08 PM CDT): Baseline uses bilateral crutches (at bedside) for past 10 years since she had gait instability associated with sensorineural hearing loss felt to be viral labyrinthitis as well as multiple knee problems related to OA, knee replacements and septic knee. Still able to drive and lives independently. - PT/OT eval Assessment & Plan (03/31/2025 2:26 PM CDT): Baseline uses 4-prong crutch. - PT/OT eval Class 3 obesity 08/11/2022 Fibrocystic breast changes, bilateral 03/23/2022 Bradycardia 12/23/2021 Hyperlipidemia associated with type 2 diabetes m kallieitus 12/23/2021 Assessment & Plan (05/10/2025 7:59 AM CDT): STABLE Held home Atorva 40 mg in setting of elevated liver chemistries, resolved - 04/01 Resumed Lipitor, continuing Assessment & Plan (05/09/2025 7:59 AM CDT): STABLE Held home Atorva 40 mg in setting of elevated liver chemistries, resolved - 04/01 Resumed Lipitor, continuing Assessment & Plan (05/08/2025 7:40 AM CDT): STABLE Held home Atorva 40 mg in setting of elevated liver chemistries, resolved - 6/16 Resumed Lipitor, continuing Assessment & Plan (05/07/2025 7:31 AM CDT): STABLE Held home Atorva 40 mg in setting of elevated liver chemistries, resolved - 6/16 Resumed Lipitor, continuing Assessment & Plan (05/06/2025 8:47 AM CDT): STABLE Held home Atorva 40 mg in setting of elevated liver chemistries, resolved - 6/16 Resumed Lipitor, continuing Assessment & Plan (05/05/2025 3:50 PM CDT): STABLE Held home Atorva 40 mg in setting of elevated liver chemistries, resolved - 6/16 Resumed Lipitor, continuing Assessment & Plan (05/04/2025 10:31 AM CDT): STABLE Held home Atorva 40 mg in setting of elevated liver chemistries, resolved - 6/16 Resumed Lipitor, continuing Assessment & Plan (05/03/2025 1:22 PM CDT): STABLE Held home Atorva 40 mg in setting of elevated liver chemistries, resolved - 6/16 Resumed Lipitor, continuing Assessment & Plan (05/02/2025 11:00 AM CDT): STABLE Held home Atorva 40 mg in setting of elevated liver chemistries, resolved - 6/16 Resumed Lipitor, continuing Assessment & Plan (04/30/2025 5:18 PM CDT): STABLE Held home Atorva 40 mg in setting of elevated liver chemistries, resolved - 6/16 Resumed Lipitor, continuing Assessment & Plan (04/29/2025 10:33 AM CDT): - Hold home Atorva 40 mg in setting of elevated liver chemistries, resolved - 6/16 Resume Lipitor Assessment & Plan (04/28/2025 11:48 AM CDT): - Hold home Atorva 40 mg in setting of elevated liver chemistries, resolved - 6/16 Resume Lipitor Assessment & Plan (04/27/2025 9:58 AM CDT): - Hold home Atorva 40 mg in setting of elevated liver chemistries, resolved - 6/16 Resume Lipitor Assessment & Plan (04/26/2025 10:07 AM CDT): - Hold home Atorva 40 mg in setting of elevated liver chemistries, resolved - 6/16 Resume Lipitor Assessment & Plan (04/25/2025 10:43 AM CDT): - Hold home Atorva 40 mg in setting of elevated liver chemistries, resolved - 6/16 Resume Lipitor Assessment & Plan (04/24/2025 11:01 AM CDT): - Hold home Atorva 40 mg in setting of elevated liver chemistries, resolved - 6/16 Resume Lipitor Assessment & Plan (04/23/2025 2:21 PM CDT): - Hold home Atorva 40 mg in setting of elevated liver chemistries, resolved - 6/16 Resume Lipitor Assessment & Plan (04/23/2025 6:07 AM CDT): - Hold home Atorva 40 mg in setting of elevated liver chemistries, resolved - 6/16 Resume Lipitor Assessment & Plan (04/21/2025 9:58 AM CDT): - Hold home Atorva 40 mg in setting of elevated liver chemistries, resolved - 6/16 Resume Lipitor Assessment & Plan (04/20/2025 2:26 PM CDT): - Hold home Atorva 40 mg in setting of elevated liver chemistries, resolved - 6/16 Resume Lipitor Assessment & Plan (04/19/2025 12:35 PM CDT): - Hold home Atorva 40 mg in setting of elevated liver chemistries, resolved - 6/16 Resume Lipitor Assessment & Plan (04/18/2025 4:09 PM CDT): - Hold home Atorva 40 mg in setting of elevated liver chemistries, resolved - 6/16 Resume Lipitor Assessment & Plan (04/17/2025 4:37 PM CDT): - Hold home Atorva 40 mg in setting of elevated liver chemistries, resolved - 6/16 Resume Lipitor Assessment & Plan (04/16/2025 1:42 PM CDT): - Hold home Atorva 40 mg in setting of elevated liver chemistries, resolved - 6/16 Resume Lipitor Assessment & Plan (04/15/2025 8:16 AM CDT): - Hold home Atorva 40 mg in setting of elevated liver chemistries, resolved - 6/16 Resume Lipitor Assessment & Plan (04/14/2025 8:46 AM CDT): - Hold home Atorva 40 mg in setting of elevated liver chemistries, resolved - 6/16 Resume Lipitor Assessment & Plan (04/13/2025 9:00 AM CDT): - Hold home Atorva 40 mg in setting of elevated liver chemistries, resolved - 6/16 Resume Lipitor Assessment & Plan (04/12/2025 12:46 PM CDT): - Hold home Atorva 40 mg in setting of elevated liver chemistries, resolved - 6/16 Resume Lipitor Assessment & Plan (04/11/2025 11:36 AM CDT): - Hold home Atorva 40 mg in setting of elevated liver chemistries, resolved - 6/16 Resume Lipitor Assessment & Plan (04/10/2025 4:18 PM CDT): - Hold home Atorva 40 mg in setting of elevated liver chemistries, resolved - 6/16 Resume Lipitor Assessment & Plan (04/09/2025 9:12 AM CDT): -Hold home Atorva 40 mg in setting of elevated liver chemistries, resolved - 6/16 Resume Lipitor Assessment & Plan (04/08/2025 12:13 PM CDT): -Hold home Atorva 40 mg in setting of elevated liver chemistries, resolved - 6/16 Resume Lipitor Assessment & Plan (04/07/2025 11:34 AM CDT): -Hold home Atorva 40 mg in setting of elevated liver chemistries, resolved - 6/16 Resume Lipitor Assessment & Plan (04/06/2025 10:54 AM CDT): -Hold home Atorva 40 mg in setting of elevated liver chemistries, resolved - 6/16 Resume Lipitor Assessment & Plan (04/05/2025 12:28 PM CDT): -Hold home Atorva 40 mg in setting of elevated liver chemistries, resolved - 6/16 Resume Lipitor Assessment & Plan (04/04/2025 11:26 AM CDT): -Hold home Atorva 40 mg in setting of elevated liver chemistries, resolved - 6/16 Resume Lipitor Assessment & Plan (04/03/2025 11:53 AM CDT): -Hold home Atorva 40 mg in setting of elevated liver chemistries, resolved - 6/16 Resume Lipitor Assessment & Plan (04/02/2025 10:42 AM CDT): -Hold home Atorva 40 mg in setting of elevated liver chemistries, resolved - 6/16 Resume Lipitor Assessment & Plan (04/01/2025 1:08 PM CDT): -Hold home Atorva 40 mg in setting of elevated liver chemistries, resolved - 04/01 Resume Lipitor Assessment & Plan (03/31/2025 2:26 PM CDT): -Hold home Atorva 40 mg in setting of elevated liver chemistries CKD stage 3 due to type 2 diabetes mellitus 06/2022 Breast cancer screening by mammogram 03/17/2021 Hearing loss 12/14/2019 Infected prosthetic knee joint 05/20/2019 Overview (05/20/2019): Added automatically from request for surgery [id number] Assessment & Plan (05/24/2019 10:08 AM CDT): Group B streptococcal prosthetic joint infection - this patient is now 5 months 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 Patients with diabetes are particular risk of group B strep infections. Now status post I and D with liner exchange and antimicrobial beads placement. Will need long-term IV antibiotics followed by oral suppression. Several of her knee cx now + Group B strep, narrowed to ampicillin 05/23 after cx results reviewed.05/20 Blood cx NGTD. PICC line placed. Recommendations: - continue ampicillin 2g IV q 4 hours- plan for 6 weeks. - she will need 6 weeks of IV abx followed by shelter oral suppression given retained HW. - ID will continue to follow the pt peripherally while in house. - Please call with any questions or concerns. - See plan of care note dated 05/23/19 for detailed recommendations. Primary osteoarthritis of right knee 11/15/2018 Overview (11/15/2018): Added automatically from request for surgery [id number] Chronic sinusitis 08/23/2018 Nonrheumatic aortic valve stenosis 01/06/2018 MITTAL (dyspnea on exertion) 06/28/2017 Assessment & Plan (06/28/2017 9:22 PM CDT): Significant MITTAL which is likely related to obesity and deconditioning, but will out LV dysfunction or valve disease. Lexiscan stress test 1 year ago did not show any evidence of ischemia and ejection fraction was 70% at that time. Morbid obesity with BMI of 40.0-44.9, adult 06/17 Asymmetrical sensorineural hearing loss 12/31/19 17 Chronic anticoagulation 06/29/2016 Overview (01/21/2017): Chronic anticoagulation Assessment & Plan (06/28/2017 9:22 PM CDT): Last INR in March was 2.6. Patient has been noncompliant with follow-up but no bleeding issues. S/P ablation of atrial fibrillation 06/29/2016 Overview (01/21/2017): History of atrial fibrillation Essential hypertension 06/29/2016 Overview (01/21/2017): Essential hypertension Assessment & Plan (05/10/2025 7:59 AM CDT): CHRONIC, titrating diuretics Home losartan 50 mg daily, Lasix 40 mg BID --Continue metoprolol XL 50mg, holding losartan --Lasix 80mg BID Assessment & Plan (05/09/2025 7:59 AM CDT): CHRONIC, titrating diuretics Home losartan 50 mg daily, Lasix 40 mg BID --Continue metoprolol XL 50mg, holding losartan --Lasix 80mg BID Assessment & Plan (05/08/2025 7:40 AM CDT): CHRONIC, titrating diuretics Home losartan 50 mg daily, Lasix 40 mg BID --Continue metoprolol XL 50mg, holding losartan --Lasix 80mg BID Assessment & Plan (05/07/2025 7:31 AM CDT): CHRONIC, titrating diuretics Home losartan 50 mg daily, Lasix 40 mg BID --Continue metoprolol XL 50mg, holding losartan --Lasix 80mg BID Assessment & Plan (05/06/2025 8:47 AM CDT): CHRONIC, titrating diuretics Home losartan 50 mg daily, Lasix 40 mg BID --Continue metoprolol XL 50mg, holding losartan --Lasix 80mg BID Assessment & Plan (05/05/2025 3:50 PM CDT): CHRONIC, titrating diuretics Home losartan 50 mg daily, Lasix 40 mg BID --Continue metoprolol XL 50mg, holding losartan --Lasix 80mg BID Assessment & Plan (05/04/2025 10:31 AM CDT): Home losartan 50 mg daily, Lasix 40 mg BID Have been titrating metoprolol and losartan during admission. Assessment & Plan (05/03/2025 1:22 PM CDT): Home losartan 50 mg daily, Lasix 40 mg BID Have been titrating metoprolol and losartan during admission. Assessment & Plan (05/02/2025 12:47 PM CDT): Home losartan 50 mg daily, Lasix 40 mg BID Have been titrating metoprolol and losartan during admission. Assessment & Plan (04/30/2025 5:18 PM CDT): Home losartan 50 mg daily, Lasix 40 mg BID Have been titrating metoprolol and losartan during admission. Assessment & Plan (04/29/2025 10:33 AM CDT): Home losartan 50 mg daily, Lasix 40 mg BID - resumed Losartan and placed on IV Lasix 40 BID in ICU - 03/31 Hold Lasix given hypernatremia - 148->146 - 04/01 Na 144, resume Lasix at 40 mg PO daily and monitor - 04/02 resume metoprolol, imdur and home lasix 04/03 - 04/04 increase toprol XL to 100mg qam and monitor - 04/05 increase losartan to 100mg daily and monitor-hypotension with PT - 04/06 reduce losartan back to 50mg and monitor - 04/10 hold Losartan - 04/11 hold Metoprolol, resume 50 mg XL 04/12 - 04/12 Will give IV Lasix 40 mg to avoid VOL given multiple transfusions - Change Metoprolol to IR 25 mg BID to allow titration in setting of GIB and risk of BP instability - Give Lasix 40 mg IV, replete K and Mg both low normal and expect to go down with Lasix and NPO, Hold lasix -7/ BP stable, resume Imdur 7-4, IV lasix x1, good response. Repeat IV lasix on 04-21 orthostatic BP drop when up with therapist: give gently 1 L LR over 10 hours, hold Imdur -04/23 resume imdur, lasix 40mg BID and monitor -04/24 start losartan 25mg qam and monitor -04/25 orthostatic-DC losartan and hold diuretics -04/29 BP much improved Assessment & Plan (04/28/2025 11:48 AM CDT): Home losartan 50 mg daily, Lasix 40 mg BID - resumed Losartan and placed on IV Lasix 40 BID in ICU - 03/31 Hold Lasix given hypernatremia - 148->146 - 04/01 Na 144, resume Lasix at 40 mg PO daily and monitor - 04/02 resume metoprolol, imdur and home lasix 04/03 - 04/04 increase toprol XL to 100mg qam and monitor - 04/05 increase losartan to 100mg daily and monitor-hypotension with PT - 04/06 reduce losartan back to 50mg and monitor - 04/10 hold Losartan - 04/11 hold Metoprolol, resume 50 mg XL 04/12 - 04/12 Will give IV Lasix 40 mg to avoid VOL given multiple transfusions - Change Metoprolol to IR 25 mg BID to allow titration in setting of GIB and risk of BP instability - Give Lasix 40 mg IV, replete K and Mg both low normal and expect to go down with Lasix and NPO, Hold lasix -7/ BP stable, resume Imdur 7-4, IV lasix x1, good response. Repeat IV lasix on 04-21 -04/22 orthostatic BP drop when up with therapist: give gently 1 L LR over 10 hours, hold Imdur -04/23 resume imdur, lasix 40mg BID and monitor -04/24 start losartan 25mg qam and monitor -7/10 orthostatic-DC losartan and hold diuretics Assessment & Plan (04/27/2025 9:58 AM CDT): Home losartan 50 mg daily, Lasix 40 mg BID - resumed Losartan and placed on IV Lasix 40 BID in ICU - 03/31 Hold Lasix given hypernatremia - 148->146 - 04/01 Na 144, resume Lasix at 40 mg PO daily and monitor - 04/02 resume metoprolol, imdur and home lasix 04/03 - 04/04 increase toprol XL to 100mg qam and monitor - 04/05 increase losartan to 100mg daily and monitor-hypotension with PT - 04/06 reduce losartan back to 50mg and monitor - 04/10 hold Losartan - 04/11 hold Metoprolol, resume 50 mg XL 04/12 - 04/12 Will give IV Lasix 40 mg to avoid VOL given multiple transfusions - Change Metoprolol to IR 25 mg BID to allow titration in setting of GIB and risk of BP instability - Give Lasix 40 mg IV, replete K and Mg both low normal and expect to go down with Lasix and NPO, Hold lasix -04/18 BP stable, resume Imdur 7-4, IV lasix x1, good response. Repeat IV lasix on 04-21 -04/22 orthostatic BP drop when up with therapist: give gently 1 L LR over 10 hours, hold Imdur -04/23 resume imdur, lasix 40mg BID and monitor -04/24 start losartan 25mg qam and monitor -7/ orthostatic-DC losartan and hold diuretics Assessment & Plan (04/26/2025 10:07 AM CDT): Home losartan 50 mg daily, Lasix 40 mg BID - resumed Losartan and placed on IV Lasix 40 BID in ICU - 03/31 Hold Lasix given hypernatremia - 148->146 - 04/01 Na 144, resume Lasix at 40 mg PO daily and monitor - 04/02 resume metoprolol, imdur and home lasix 04/03 - 04/04 increase toprol XL to 100mg qam and monitor - 04/05 increase losartan to 100mg daily and monitor-hypotension with PT - 04/06 reduce losartan back to 50mg and monitor - 04/10 hold Losartan - 04/11 hold Metoprolol, resume 50 mg XL 04/12 - 04/12 Will give IV Lasix 40 mg to avoid VOL given multiple transfusions - Change Metoprolol to IR 25 mg BID to allow titration in setting of GIB and risk of BP instability - Give Lasix 40 mg IV, replete K and Mg both low normal and expect to go down with Lasix and NPO, Hold lasix -04/18 BP stable, resume Imdur 7-4, IV lasix x1, good response. Repeat IV lasix on 04-21 orthostatic BP drop when up with therapist: give gently 1 L LR over 10 hours, hold Imdur -04/23 resume imdur, lasix 40mg BID and monitor -04/24 start losartan 25mg qam and monitor -04/25 orthostatic-DC losartan and hold diuretics Assessment & Plan (04/25/2025 10:43 AM CDT): Home losartan 50 mg daily, Lasix 40 mg BID - resumed Losartan and placed on IV Lasix 40 BID in ICU - 03/31 Hold Lasix given hypernatremia - 148->146 - 04/01 Na 144, resume Lasix at 40 mg PO daily and monitor - 04/02 resume metoprolol, imdur and home lasix 04/03 - 04/04 increase toprol XL to 100mg qam and monitor - 04/05 increase losartan to 100mg daily and monitor-hypotension with PT - 04/06 reduce losartan back to 50mg and monitor - 04/10 hold Losartan - 04/11 hold Metoprolol, resume 50 mg XL 04/12 - 04/12 Will give IV Lasix 40 mg to avoid VOL given multiple transfusions - Change Metoprolol to IR 25 mg BID to allow titration in setting of GIB and risk of BP instability - Give Lasix 40 mg IV, replete K and Mg both low normal and expect to go down with Lasix and NPO, Hold lasix -04/18 BP stable, resume Imdur 7-4, IV lasix x1, good response. Repeat IV lasix on 04-21 orthostatic BP drop when up with therapist: give gently 1 L LR over 10 hours, hold Imdur -7/8 resume imdur, lasix 40mg BID and monitor -04/24 start losartan 25mg qam and monitor -04/25 orthostatic-DC losartan and hold diuretics Assessment & Plan (04/24/2025 11:01 AM CDT): Home losartan 50 mg daily, Lasix 40 mg BID - resumed Losartan and placed on IV Lasix 40 BID in ICU - 03/31 Hold Lasix given hypernatremia - 148->146 - 04/01 Na 144, resume Lasix at 40 mg PO daily and monitor - 04/02 resume metoprolol, imdur and home lasix 04/03 - 04/04 increase toprol XL to 100mg qam and monitor - 04/05 increase losartan to 100mg daily and monitor-hypotension with PT - 04/06 reduce losartan back to 50mg and monitor - 04/10 hold Losartan - 04/11 hold Metoprolol, resume 50 mg XL 04/12 - 04/12 Will give IV Lasix 40 mg to avoid VOL given multiple transfusions - Change Metoprolol to IR 25 mg BID to allow titration in setting of GIB and risk of BP instability - Give Lasix 40 mg IV, replete K and Mg both low normal and expect to go down with Lasix and NPO, Hold lasix -04/18 BP stable, resume Imdur 7-4, IV lasix x1, good response. Repeat IV lasix on 04-21 -04/22 orthostatic BP drop when up with therapist: give gently 1 L LR over 10 hours, hold Imdur -7/8 resume imdur, lasix 40mg BID and monitor -04/24 start losartan 25mg qam and monitor Assessment & Plan (04/23/2025 2:21 PM CDT): Home losartan 50 mg daily, Lasix 40 mg BID - resumed Losartan and placed on IV Lasix 40 BID in ICU - 03/31 Hold Lasix given hypernatremia - 148->146 - 16 Na 144, resume Lasix at 40 mg PO daily and monitor - 04/02 resume metoprolol, imdur and home lasix 04/03 - 04/04 increase toprol XL to 100mg qam and monitor - 04/05 increase losartan to 100mg daily and monitor-hypotension with PT - 04/06 reduce losartan back to 50mg and monitor - 04/10 hold Losartan - 04/11 hold Metoprolol, resume 50 mg XL 04/12 - 04/12 Will give IV Lasix 40 mg to avoid VOL given multiple transfusions - Change Metoprolol to IR 25 mg BID to allow titration in setting of GIB and risk of BP instability - Give Lasix 40 mg IV, replete K and Mg both low normal and expect to go down with Lasix and NPO, Hold lasix -04/18 BP stable, resume Imdur 7-4, IV lasix x1, good response. Repeat IV lasix on 04-21 -04/22 orthostatic BP drop when up with therapist: give gently 1 L LR over 10 hours, hold Imdur -04/23 resume imdur, lasix 40mg BID and monitor Assessment & Plan (04/23/2025 6:07 AM CDT): Home losartan 50 mg daily, Lasix 40 mg BID - resumed Losartan and placed on IV Lasix 40 BID in ICU - 03/31 Hold Lasix given hypernatremia - 148->146 - 04/01 Na 144, resume Lasix at 40 mg PO daily and monitor - 04/02 resume metoprolol, imdur and home lasix 04/03 - 04/04 increase toprol XL to 100mg qam and monitor - 04/05 increase losartan to 100mg daily and monitor-hypotension with PT - 04/06 reduce losartan back to 50mg and monitor - 04/10 hold Losartan - 04/11 hold Metoprolol, resume 50 mg XL 04/12 - 04/12 Will give IV Lasix 40 mg to avoid VOL given multiple transfusions - Change Metoprolol to IR 25 mg BID to allow titration in setting of GIB and risk of BP instability - Give Lasix 40 mg IV, replete K and Mg both low normal and expect to go down with Lasix and nPO Hold lasix 7-3 BP stable , resume Imdur 7-4, IV lasix x1 , good response.Repeat IV lasix on 04-21 orthostatic BP drop when up with therapist: give gently 1 L LR over 10 hours, hold Imdur Assessment & Plan (04/21/2025 8:10 PM CDT): Home losartan 50 mg daily, Lasix 40 mg BID - resumed Losartan and placed on IV Lasix 40 BID in ICU - 03/31 Hold Lasix given hypernatremia - 148->146 - 04/01 Na 144, resume Lasix at 40 mg PO daily and monitor - 04/02 resume metoprolol, imdur and home lasix 04/03 - 04/04 increase toprol XL to 100mg qam and monitor - 04/05 increase losartan to 100mg daily and monitor-hypotension with PT - 04/06 reduce losartan back to 50mg and monitor - 04/10 hold Losartan - 04/11 hold Metoprolol, resume 50 mg XL 04/12 - 04/12 Will give IV Lasix 40 mg to avoid VOL given multiple transfusions - Change Metoprolol to IR 25 mg BID to allow titration in setting of GIB and risk of BP instability - Give Lasix 40 mg IV, replete K and Mg both low normal and expect to go down with Lasix and nPO Hold lasix 7-3 BP stable , resume Imdur 7-4, IV lasix x1 , good response.Repeat IV lasix on 7-6 Assessment & Plan (04/20/2025 7:27 PM CDT): Home losartan 50 mg daily, Lasix 40 mg BID - resumed Losartan and placed on IV Lasix 40 BID in ICU - 03/31 Hold Lasix given hypernatremia - 148->146 - 04/01 Na 144, resume Lasix at 40 mg PO daily and monitor - 04/02 resume metoprolol, imdur and home lasix 04/03 - 04/04 increase toprol XL to 100mg qam and monitor - 04/05 increase losartan to 100mg daily and monitor-hypotension with PT - 04/06 reduce losartan back to 50mg and monitor - 04/10 hold Losartan - 04/11 hold Metoprolol, resume 50 mg XL 04/12 - 04/12 Will give IV Lasix 40 mg to avoid VOL given multiple transfusions - Change Metoprolol to IR 25 mg BID to allow titration in setting of GIB and risk of BP instability - Give Lasix 40 mg IV, replete K and Mg both low normal and expect to go down with Lasix and nPO Hold lasix 7-3 BP stable , resume Imdur 7-4, IV lasix x1 , good response Assessment & Plan (04/19/2025 8:18 PM CDT): Home losartan 50 mg daily, Lasix 40 mg BID - resumed Losartan and placed on IV Lasix 40 BID in ICU - 03/31 Hold Lasix given hypernatremia - 148->146 - 04/01 Na 144, resume Lasix at 40 mg PO daily and monitor - 04/02 resume metoprolol, imdur and home lasix 04/03 - 04/04 increase toprol XL to 100mg qam and monitor - 04/05 increase losartan to 100mg daily and monitor-hypotension with PT - 04/06 reduce losartan back to 50mg and monitor - 04/10 hold Losartan - 04/11 hold Metoprolol, resume 50 mg XL 04/12 - 04/12 Will give IV Lasix 40 mg to avoid VOL given multiple transfusions - Change Metoprolol to IR 25 mg BID to allow titration in setting of GIB and risk of BP instability - Give Lasix 40 mg IV, replete K and Mg both low normal and expect to go down with Lasix and nPO Hold lasix 7-3 BP stable , resume Imdur 7-4, IV lasix x1 Assessment & Plan (04/18/2025 7:47 PM CDT): Home losartan 50 mg daily, Lasix 40 mg BID - resumed Losartan and placed on IV Lasix 40 BID in ICU - 03/31 Hold Lasix given hypernatremia - 148->146 - 04/01 Na 144, resume Lasix at 40 mg PO daily and monitor - 04/02 resume metoprolol, imdur and home lasix 04/03 - 04/04 increase toprol XL to 100mg qam and monitor - 04/05 increase losartan to 100mg daily and monitor-hypotension with PT - 04/06 reduce losartan back to 50mg and monitor - 04/10 hold Losartan - 04/11 hold Metoprolol, resume 50 mg XL 04/12 - 04/12 Will give IV Lasix 40 mg to avoid VOL given multiple transfusions - Change Metoprolol to IR 25 mg BID to allow titration in setting of GIB and risk of BP instability - Give Lasix 40 mg IV, replete K and Mg both low normal and expect to go down with Lasix and nPO Hold lasix 7-3 BP stable will resume Imdur Assessment & Plan (04/18/2025 12:22 AM CDT): Home losartan 50 mg daily, Lasix 40 mg BID - resumed Losartan and placed on IV Lasix 40 BID in ICU - 03/31 Hold Lasix given hypernatremia - 148->146 - 04/01 Na 144, resume Lasix at 40 mg PO daily and monitor - 04/02 resume metoprolol, imdur and home lasix 04/03 - 04/04 increase toprol XL to 100mg qam and monitor - 04/05 increase losartan to 100mg daily and monitor-hypotension with PT - 04/06 reduce losartan back to 50mg and monitor - 04/10 hold Losartan - 04/11 hold Metoprolol, resume 50 mg XL 04/12 - 04/12 Will give IV Lasix 40 mg to avoid VOL given multiple transfusions - Change Metoprolol to IR 25 mg BID to allow titration in setting of GIB and risk of BP instability - Give Lasix 40 mg IV, replete K and Mg both low normal and expect to go down with Lasix and nPO Hold lasix Assessment & Plan (04/16/2025 1:42 PM CDT): Home losartan 50 mg daily, Lasix 40 mg BID - resumed Losartan and placed on IV Lasix 40 BID in ICU - 03/31 Hold Lasix given hypernatremia - 148->146 - 04/01 Na 144, resume Lasix at 40 mg PO daily and monitor - 04/02 resume metoprolol, imdur and home lasix 04/03 - 04/04 increase toprol XL to 100mg qam and monitor - 04/05 increase losartan to 100mg daily and monitor-hypotension with PT - 04/06 reduce losartan back to 50mg and monitor - 04/10 hold Losartan - 04/11 hold Metoprolol, resume 50 mg XL 04/12 - 04/12 Will give IV Lasix 40 mg to avoid VOL given multiple transfusions - Change Metoprolol to IR 25 mg BID to allow titration in setting of GIB and risk of BP instability - Give Lasix 40 mg IV, replete K and Mg both low normal and expect to go down with Lasix and nPO Assessment & Plan (04/15/2025 12:00 PM CDT): Home losartan 50 mg daily, Lasix 40 mg BID - resumed Losartan and placed on IV Lasix 40 BID in ICU - 03/31 Hold Lasix given hypernatremia - 148->146 - 04/01 Na 144, resume Lasix at 40 mg PO daily and monitor - 04/02 resume metoprolol, imdur and home lasix 04/03 - 04/04 increase toprol XL to 100mg qam and monitor - 04/05 increase losartan to 100mg daily and monitor-hypotension with PT - 04/06 reduce losartan back to 50mg and monitor - 04/10 hold Losartan - 04/11 hold Metoprolol, resume 50 mg XL 04/12 - 04/12 Will give IV Lasix 40 mg to avoid VOL given multiple transfusions - Change Metoprolol to IR 25 mg BID to allow titration in setting of GIB and risk of BP instability - Give Lasix 40 mg IV, replete K and Mg both low normal and expect to go down with Lasix and nPO Assessment & Plan (04/14/2025 11:36 AM CDT): Home losartan 50 mg daily, Lasix 40 mg BID - resumed Losartan and placed on IV Lasix 40 BID in ICU - 03/31 Hold Lasix given hypernatremia - 148->146 - 04/01 Na 144, resume Lasix at 40 mg PO daily and monitor - 04/02 resume metoprolol, imdur and home lasix 04/03 - 04/04 increase toprol XL to 100mg qam and monitor - 04/05 increase losartan to 100mg daily and monitor-hypotension with PT - 04/06 reduce losartan back to 50mg and monitor - 04/10 hold Losartan - 04/11 hold Metoprolol, resume 50 mg XL 04/12 - 04/12 Will give IV Lasix 40 mg to avoid VOL given multiple transfusions - Hold Lasix given NPO, change Metoprolol to IR 25 mg BID to allow titration in setting of GIB and risk of BP instability Assessment & Plan (04/13/2025 9:00 AM CDT): Home losartan 50 mg daily, Lasix 40 mg BID - resumed Losartan and placed on IV Lasix 40 BID in ICU - 03/31 Hold Lasix given hypernatremia - 148->146 - 04/01 Na 144, resume Lasix at 40 mg PO daily and monitor - 04/02 resume metoprolol, imdur and home lasix 04/03 - 04/04 increase toprol XL to 100mg qam and monitor - 6 20 increase losartan to 100mg daily and monitor-hypotension with PT - 04/06 reduce losartan back to 50mg and monitor - 04/10 hold Losartan - 04/11 hold Metoprolol, resume 04/12 - 04/12 Will give IV Lasix to avoid VOL given multiple transfusions Assessment & Plan (04/12/2025 12:46 PM CDT): Home losartan 50 mg daily, Lasix 40 mg BID - resumed Losartan and placed on IV Lasix 40 BID in ICU - 03/31 Hold Lasix given hypernatremia - 148->146 - 04/01 Na 144, resume Lasix at 40 mg PO daily and monitor - 04/02 resume metoprolol, imdur and home lasix 04/03 - 04/04 increase toprol XL to 100mg qam and monitor - 6 20 increase losartan to 100mg daily and monitor-hypotension with PT - 04/06 reduce losartan back to 50mg and monitor - 25 hold Losartan - 04/11 hold Metoprolol, resume 04/12 - 04/12 Will give IV Lasix to avoid VOL given multiple transfusions Assessment & Plan (04/11/2025 11:36 AM CDT): Home losartan 50 mg daily, Lasix 40 mg BID - resumed Losartan and placed on IV Lasix 40 BID in ICU - 03/31 Hold Lasix given hypernatremia - 148->146 - 04/01 Na 144, resume Lasix at 40 mg PO daily and monitor - 04/02 resume metoprolol, imdur and home lasix 04/03 - 04/04 increase toprol XL to 100mg qam and monitor - 6 20 increase losartan to 100mg daily and monitor-hypotension with PT - 04/06 reduce losartan back to 50mg and monitor - 04/10 hold Losartan - 04/11 hold Metoprolol Assessment & Plan (04/10/2025 4:18 PM CDT): Home losartan 50 mg daily, Lasix 40 mg BID - resumed Losartan and placed on IV Lasix 40 BID in ICU - 03/31 Hold Lasix given hypernatremia - 148->146 - 04/01 Na 144, resume Lasix at 40 mg PO daily and monitor - 04/02 resume metoprolol, imdur and home lasix 04/03 - 04/04 increase toprol XL to 100mg qam and monitor - 6 20 increase losartan to 100mg daily and monitor-hypotension with PT - 04/06 reduce losartan back to 50mg and monitor Assessment & Plan (04/09/2025 9:12 AM CDT): Home losartan 50 mg daily, Lasix 40 mg BID - resumed Losartan and placed on IV Lasix 40 BID in ICU - 03/31 Hold Lasix given hypernatremia - 148->146 - 04/01 Na 144, resume Lasix at 40 mg PO daily and monitor - 04/02 resume metoprolol, imdur and home lasix 04/03 - 04/04 increase toprol XL to 100mg qam and monitor - 6 20 increase losartan to 100mg daily and monitor-hypotension with PT - 04/06 reduce losartan back to 50mg and monitor Assessment & Plan (04/08/2025 12:13 PM CDT): Home losartan 50 mg daily, Lasix 40 mg BID - resumed Losartan and placed on IV Lasix 40 BID in ICU - 03/31 Hold Lasix given hypernatremia - 148->146 - 04/01 Na 144, resume Lasix at 40 mg PO daily and monitor - 04/02 resume metoprolol, imdur and home lasix 04/03 - 04/04 increase toprol XL to 100mg qam and monitor - 6 20 increase losartan to 100mg daily and monitor-hypotension with PT - 04/06 reduce losartan back to 50mg and monitor Assessment & Plan (04/07/2025 11:34 AM CDT): Home losartan 50 mg daily, Lasix 40 mg BID - resumed Losartan and placed on IV Lasix 40 BID in ICU - 03/31 Hold Lasix given hypernatremia - 148->146 - 6/16 Na 144, resume Lasix at 40 mg PO daily and monitor - 04/02 resume metoprolol, imdur and home lasix 04/03 - 04/04 increase toprol XL to 100mg qam and monitor - 6 20 increase losartan to 100mg daily and monitor-hypotension with PT - 04/06 reduce losartan back to 50mg and monitor Assessment & Plan (04/06/2025 10:54 AM CDT): Home losartan 50 mg daily, Lasix 40 mg BID - resumed Losartan and placed on IV Lasix 40 BID in ICU - 03/31 Hold Lasix given hypernatremia - 148->146 - /16 Na 144, resume Lasix at 40 mg PO daily and monitor - 04/02 resume metoprolol, imdur and home lasix 04/03 increase toprol XL to 100mg qam and monitor - 6 20 increase losartan to 100mg daily and monitor-hypotension with PT - 04/06 reduce losartan back to 50mg and monitor Assessment & Plan (04/05/2025 12:28 PM CDT): Home losartan 50 mg daily, Lasix 40 mg BID - resumed Losartan and placed on IV Lasix 40 BID in ICU - 03/31 Hold Lasix given hypernatremia - 148->146 - /16 Na 144, resume Lasix at 40 mg PO daily and monitor - 04/02 resume metoprolol, imdur and home lasix 04/03 - 04/04 increase toprol XL to 100mg qam and monitor - 6 20 increase losartan to 100mg daily and monitor Assessment & Plan (04/04/2025 11:26 AM CDT): Home losartan 50 mg daily, Lasix 40 mg BID - resumed Losartan and placed on IV Lasix 40 BID in ICU - 03/31 Hold Lasix given hypernatremia - 148->146 - /16 Na 144, resume Lasix at 40 mg PO daily and monitor - 04/02 resume metoprolol, imdur and home lasix 04/03 - 04/04 increase toprol XL to 100mg qam and monitor Assessment & Plan (04/03/2025 11:53 AM CDT): Home losartan 50 mg daily, Lasix 40 mg BID - resumed Losartan and placed on IV Lasix 40 BID in ICU - 03/31 - Hold Lasix given hypernatremia - 148->146 - 16 Na 144, resume Lasix at 40 mg PO daily and monitor - 04/02 resume metoprolol, home lasix 04/03 Assessment & Plan (04/02/2025 10:42 AM CDT): Home losartan 50 mg daily, Lasix 40 mg BID - resumed Losartan and placed on IV Lasix 40 BID in ICU - 03/31 - Hold Lasix given hypernatremia - 148->146 - /16 Na 144, resume Lasix at 40 mg PO daily and monitor - 04/02 resume metoprolol Assessment & Plan (04/01/2025 7:24 AM CDT): Home losartan 50 mg daily , Lasix 40 mg BID - resumed Losartan and placed on IV Lasix 40 BID in ICU - 03/31 - Hold Lasix given hypernatremia - 148->146 - /16 Na 144, resume Lasix at 40 mg PO daily and monitor Assessment & Plan (03/31/2025 2:26 PM CDT): Home losartan 50 mg daily , Lasix 40 mg BID - resumed Losartan and Lasix - Hold Lasix given hypernetremia Assessment & Plan (06/28/2017 9:23 PM CDT): Hypertension is At goal on medical therapy No further episodes of hypotension Knee pain 04/02/2016 Restless legs 09/28/2013 Assessment & Plan (05/10/2025 7:59 AM CDT): STABLE Home Requip, continued Assessment & Plan (05/09/2025 7:59 AM CDT): STABLE Home Requip, continued Assessment & Plan (05/08/2025 7:40 AM CDT): STABLE Home Requip, continued Assessment & Plan (05/07/2025 7:31 AM CDT): STABLE Home Requip, continued Assessment & Plan (05/06/2025 8:47 AM CDT): STABLE Home Requip, continued Assessment & Plan (05/05/2025 3:50 PM CDT): STABLE Home Requip, continued Assessment & Plan (05/04/2025 10:31 AM CDT): Home Requip, continued Assessment & Plan (05/03/2025 1:22 PM CDT): Home Requip, continued Assessment & Plan (05/02/2025 11:00 AM CDT): Home Requip, continued Assessment & Plan (04/30/2025 5:18 PM CDT): Home Requip, continued Assessment & Plan (04/29/2025 10:33 AM CDT): Home Requip, continued Assessment & Plan (04/28/2025 11:48 AM CDT): Home Requip, continued Assessment & Plan (04/27/2025 9:58 AM CDT): Home Requip, continued Assessment & Plan (04/26/2025 10:07 AM CDT): Home Requip, continued Assessment & Plan (04/25/2025 10:43 AM CDT): Home Requip, continued Assessment & Plan (04/24/2025 11:01 AM CDT): Home Requip, continued Assessment & Plan (04/23/2025 2:21 PM CDT): Home Requip, continued Assessment & Plan (04/23/2025 6:07 AM CDT): Home Requip, continued Assessment & Plan (04/21/2025 9:58 AM CDT): Home Requip, continued Assessment & Plan (04/20/2025 2:26 PM CDT): Home Requip, continued Assessment & Plan (04/19/2025 12:35 PM CDT): Home Requip, continued Assessment & Plan (04/18/2025 4:09 PM CDT): Home Requip, continued Assessment & Plan (04/17/2025 4:37 PM CDT): Home Requip, continued Assessment & Plan (04/16/2025 1:42 PM CDT): Home Requip, continued Assessment & Plan (04/15/2025 8:16 AM CDT): Home Requip, continued Assessment & Plan (04/14/2025 8:46 AM CDT): Home Requip, continued Assessment & Plan (04/13/2025 9:00 AM CDT): Home Requip, continued Assessment & Plan (04/12/2025 12:46 PM CDT): Home Requip, continued Assessment & Plan (04/11/2025 11:36 AM CDT): Home Requip, continued Assessment & Plan (04/10/2025 4:18 PM CDT): Home Requip, continued Assessment & Plan (04/09/2025 9:12 AM CDT): Home Requip, continued Assessment & Plan (04/08/2025 12:13 PM CDT): Home Requip, continued Assessment & Plan (04/07/2025 11:34 AM CDT): Home Requip, continued Assessment & Plan (04/06/2025 10:54 AM CDT): Home Requip, continued Assessment & Plan (04/05/2025 12:28 PM CDT): Home Requip, continued Assessment & Plan (04/04/2025 11:26 AM CDT): Home Requip, continued Assessment & Plan (04/03/2025 11:53 AM CDT): Home Requip, continued Assessment & Plan (04/02/2025 10:42 AM CDT): Home Requip, continued Assessment & Plan (04/01/2025 7:24 AM CDT): Home Requip, continued Assessment & Plan (03/31/2025 2:26 PM CDT): Home Requip, continued Type 2 diabetes mellitus 09/28/2013 Assessment & Plan (05/10/2025 7:59 AM CDT): A1c 7.9% on 03/19. Home: Metformin 500 XR, jardiance 25 mg daily, lantus 79 units BID, lispro 29 units TID. Required insulin gtt @ for BG as high as 464. Titrating lantus and lispro during admission since intermittently NPO and having procedures. -Lantus 22 q12, Continue Lispro 12 TID Assessment & Plan (05/09/2025 7:59 AM CDT): A1c 7.9% on 03/19. Home: Metformin 500 XR, jardiance 25 mg daily, lantus 79 units BID, lispro 29 units TID. Required insulin gtt @ [facility] for BG as high as 464. Titrating lantus and lispro during admission since intermittently NPO and having procedures. -Lantus 22 q12, Continue Lispro 12 TID Assessment & Plan (05/08/2025 7:40 AM CDT): A1c 7.9% on 03/19. Home: Metformin 500 XR, jardiance 25 mg daily, lantus 79 units BID, lispro 29 units TID. Required insulin gtt @ [facility] for BG as high as 464. Titrating lantus and lispro during admission since intermittently NPO and having procedures. -Lantus q12, Continue Lispro 12 TID Assessment & Plan (05/07/2025 7:31 AM CDT): A1c 7.9% on 03/19. Home: Metformin 500 XR, jardiance 25 mg daily, lantus 79 units BID, lispro 29 units TID. Required insulin gtt @ [facility] for BG as high as 464. Titrating lantus and lispro during admission since intermittently NPO and having procedures. -Lantus q12, Continue Lispro 12 TID Assessment & Plan (05/06/2025 4:49 PM CDT): A1c 7.9% on 03/19. Home: Metformin 500 XR, jardiance 25 mg daily, lantus 79 units BID, lispro 29 units TID. Required insulin gtt @ [facility] for BG as high as 464. Titrating lantus and lispro during admission since intermittently NPO and having procedures. 04/30 Blood sugars improved with Lantus 30 BID, Lispro 10 TID, but trending up with meals. AM blood sugar 78 04/30 so decreased Lantus to 28>24 BID and continue lispro 10<12 TID with SSI 05/01 Fasting blood sugar 64, so decreased Lantus to 24 BID 05/02 Blood sugars trending up during the day yesterday 138<173<241<287 7 Fasting blood sugar 126, so increased mealtime insulin from 10 TID to 12 TID, continued Lantus 24 BID since fasting blood sugar controlled this morning 05/04 Fasting 129<218>196>188 7/ Fasting blood sugar 79<97<188. Lantus 24 q12>22 q12, Continue Lispro 12 TID Assessment & Plan (05/05/2025 3:50 PM CDT): A1c 7.9% on 03/19. Home: Metformin 500 XR, jardiance 25 mg daily, lantus 79 units BID, lispro 29 units TID. Required insulin gtt @ [facility] for BG as high as 464. Titrating lantus and lispro during admission since intermittently NPO and having procedures. 04/30 Blood sugars improved with Lantus 30 BID, Lispro 10 TID, but trending up with meals. AM blood sugar 78 04/30 so decreased Lantus to 28>24 BID and continue lispro 10<12 TID with SSI 05/01 Fasting blood sugar 64, so decreased Lantus to 24 BID 05/02 Blood sugars trending up during the day yesterday 138<173<[id number] 718 Fasting blood sugar 126, so increased mealtime insulin from 10 TID to 12 TID, continued Lantus 24 BID since fasting blood sugar controlled this morning 05/04 Fasting 129<218>196>188 05/05 Fasting blood sugar 79<97<188. Lantus 24 q12>22 q12, Continue Lispro 12 TID Assessment & Plan (05/04/2025 10:31 AM CDT): A1c 7.9% on 03/19. Home: Metformin 500 XR, jardiance 25 mg daily, lantus 79 units BID, lispro 29 units TID. Required insulin gtt @ [facility] for BG as high as 464. Titrating lantus and lispro during admission since intermittently NPO and having procedures. 7 Blood sugars improved with Lantus 30 BID, Lispro 10 TID, but trending up with meals. AM blood sugar 78 7/15 so decreased Lantus to 28>24 BID and continue lispro 10<12 TID with SSI 7/16 Fasting blood sugar 64, so decreased Lantus to 24 BID 7/17 Blood sugars trending up during the day yesterday 138<173<241<287 7/18 Fasting blood sugar 126, so increased mealtime insulin from 10 TID to 12 TID, continued Lantus 24 BID since fasting blood sugar controlled this morning Assessment & Plan (05/03/2025 1:22 PM CDT): A1c 7.9% on 03/19. Home: Metformin 500 XR, jardiance 25 mg daily, lantus 79 units BID, lispro 29 units TID. Required insulin gtt @ [facility] for BG as high as 464. Titrating lantus and lispro during admission since intermittently NPO and having procedures. 7/15 Blood sugars improved with Lantus 30 BID, Lispro 10 TID, but trending up with meals. AM blood sugar 78 7/15 so decreased Lantus to 28>24 BID and continue lispro 10<12 TID with SSI 16 Fasting blood sugar 64, so decreased Lantus to 24 BID 7/17 Blood sugars trending up during the day yesterday 138<173<241<287 7/18 Fasting blood sugar 126, so increased mealtime insulin from 10 TID to 12 TID, continued Lantus 24 BID since fasting blood sugar controlled this morning Assessment & Plan (05/02/2025 11:00 AM CDT): A1c 7.9% on 03/19. Home: Metformin 500 XR, jardiance 25 mg daily, lantus 79 units BID, lispro 29 units TID. Required insulin gtt @ [facility] for BG as high as 464. Titrating lantus and lispro during admission since intermittently NPO and having procedures. 7/15 Blood sugars improved with Lantus 30 BID, Lispro 10 TID, but trending up with meals. AM blood sugar 78 7/15 so decreasing Lantus to 28 BID and continue lispro 10 TID with SSI 716 Fasting blood sugar 64, so decreasing Lantus to 24 BID Assessment & Plan (05/01/2025 8:38 AM CDT): A1c 7.9% on 03/19. Home: Metformin 500 XR, jardiance 25 mg daily, lantus 79 units BID, lispro 29 units TID. Required insulin gtt @ [facility] for BG as high as 464. Titrating lantus and lispro during admission since intermittently NPO and having procedures. 7/15 Blood sugars improved with Lantus 30 BID, Lispro 10 TID, but trending up with meals. AM blood sugar 78 7/15 so decreasing Lantus to 28 BID and continue lispro 10 TID with SSI 05/01 Fasting blood sugar 64, so decreasing Lantus to 24 BID Assessment & Plan (04/30/2025 5:18 PM CDT): A1c 7.9% on 03/19. Home: Metformin 500 XR, jardiance 25 mg daily, lantus 79 units BID, lispro 29 units TID. Required insulin gtt @ [facility] for BG as high as 464. Titrating lantus and lispro during admission since intermittently NPO and having procedures. 7/15 Blood sugars improved with Lantus 30 BID, Lispro 10 TID, but trending up with meals. AM blood sugar 78 7/15 so decreasing Lantus to 28 BID and continue lispro 10 TID with SSI Assessment & Plan (04/29/2025 10:33 AM CDT): A1c 7.9% on 03/19. Home: Metformin 500 XR, jardiance 25 mg daily, lantus 79 units BID, lispro 29 units TID. Required insulin gtt @ [facility] for BG as high as 464. - Lantus 20 + HDSSI - 04/02 increase lantus to 20u BID and add metformin XR 500mg daily and monitor - 04/03 per pt home regimen lantus 72-80u BID, lispro 32u qAC, metformin XR 1000mg BID-resume slowly and monitor - 04/04 on lantus 40u BID - 04/05 add lispro 10u qAC - 04/06 patient with hypoglycemia overnight and again this am--reduce metformin XR to 1000mg daily and hold scheduled insulin and monitor on SSI - 04/08 metformin on hold 2/2 IV contrast 04/07, change lantus to 30u BID and HDSSI on clear liquid diet for now with GIB - 04/11 Decrease Lantus to 5 units BID given GI issues - 04/13 increased to 10 unit BID and monitor POC Glucose Trend: -7-3 increase lantus to 20 BID as BG trending up since resumed clears, add premeal lispro -7/4 increase Lantus 25 b.i.d., pre meal lispro and correct high dose SSI -7/7 Increase Lantus 30 BID, meal lispro 7 TID, SSI -04/24 monitor accuchecks on diabetic diet -04/25 increase lispro to 10u qAC Assessment & Plan (04/28/2025 11:48 AM CDT): A1c 7.9% on 03/19. Home: Metformin 500 XR, jardiance 25 mg daily, lantus 79 units BID, lispro 29 units TID. Required insulin gtt @ for BG as high as 464. - Lantus 20 + HDSSI - 04/02 increase lantus to 20u BID and add metformin XR 500mg daily and monitor - 04/03 per pt home regimen lantus 72-80u BID, lispro 32u qAC, metformin XR 1000mg BID-resume slowly and monitor - 04/04 on lantus 40u BID - 04/05 add lispro 10u qAC - 04/06 patient with hypoglycemia overnight and again this am--reduce metformin XR to 1000mg daily and hold scheduled insulin and monitor on SSI - 04/08 metformin on hold 2/2 IV contrast 04/07, change lantus to 30u BID and HDSSI on clear liquid diet for now with GIB - 04/11 Decrease Lantus to 5 units BID given GI issues - 04/13 increased to 10 unit BID and monitor POC Glucose Trend: -7-3 increase lantus to 20 BID as BG trending up since resumed clears, add premeal lispro -7/4 increase Lantus 25 b.i.d., pre meal lispro and correct high dose SSI -7/7 Increase Lantus 30 BID, meal lispro 7 TID, SSI -04/24 monitor accuchecks on diabetic diet -04/25 increase lispro to 10u qAC Assessment & Plan (04/27/2025 9:58 AM CDT): A1c 7.9% on 03/19. Home: Metformin 500 XR, jardiance 25 mg daily, lantus 79 units BID, lispro 29 units TID. Required insulin gtt @ [facility] for BG as high as 464. - Lantus 20 + HDSSI - 04/02 increase lantus to 20u BID and add metformin XR 500mg daily and monitor - 04/03 per pt home regimen lantus 72-80u BID, lispro 32u qAC, metformin XR 1000mg BID-resume slowly and monitor - 04/04 on lantus 40u BID - 04/05 add lispro 10u qAC - 04/06 patient with hypoglycemia overnight and again this am--reduce metformin XR to 1000mg daily and hold scheduled insulin and monitor on SSI - 04/08 metformin on hold 2/2 IV contrast 04/07, change lantus to 30u BID and HDSSI on clear liquid diet for now with GIB - 04/11 Decrease Lantus to 5 units BID given GI issues - 04/13 increased to 10 unit BID and monitor POC Glucose Trend: -7-3 increase lantus to 20 BID as BG trending up since resumed clears, add premeal lispro -04/19 increase Lantus 25 b.i.d., pre meal lispro and correct high dose SSI -04/22 Increase Lantus 30 BID, meal lispro 7 TID, SSI -04/24 monitor accuchecks on diabetic diet -04/25 increase lispro to 10u qAC Assessment & Plan (04/26/2025 10:07 AM CDT): A1c 7.9% on 03/19. Home: Metformin 500 XR, jardiance 25 mg daily, lantus 79 units BID, lispro 29 units TID. Required insulin gtt @ [facility] for BG as high as 464. - Lantus 20 + HDSSI - 04/02 increase lantus to 20u BID and add metformin XR 500mg daily and monitor - 04/03 per pt home regimen lantus 72-80u BID, lispro 32u qAC, metformin XR 1000mg BID-resume slowly and monitor - 04/04 on lantus 40u BID - 04/05 add lispro 10u qAC - 04/06 patient with hypoglycemia overnight and again this am--reduce metformin XR to 1000mg daily and hold scheduled insulin and monitor on SSI - 04/08 metformin on hold 2/2 IV contrast 04/07, change lantus to 30u BID and HDSSI on clear liquid diet for now with GIB - 04/11 Decrease Lantus to 5 units BID given GI issues - 04/13 increased to 10 unit BID and monitor POC Glucose Trend: -7-3 increase lantus to 20 BID as BG trending up since resumed clears, add premeal lispro -04/19 increase Lantus 25 b.i.d., pre meal lispro and correct high dose SSI -04/22 Increase Lantus 30 BID, meal lispro 7 TID, SSI -04/24 monitor accuchecks on diabetic diet -04/25 increase lispro to 10u qAC Assessment & Plan (04/25/2025 10:43 AM CDT): A1c 7.9% on 03/19. Home: Metformin 500 XR, jardiance 25 mg daily, lantus 79 units BID, lispro 29 units TID. Required insulin gtt @ for BG as high as 464. - Lantus 20 + HDSSI - 04/02 increase lantus to 20u BID and add metformin XR 500mg daily and monitor - 04/03 per pt home regimen lantus 72-80u BID, lispro 32u qAC, metformin XR 1000mg BID-resume slowly and monitor - 04/04 on lantus 40u BID - 04/05 add lispro 10u qAC - 04/06 patient with hypoglycemia overnight and again this am--reduce metformin XR to 1000mg daily and hold scheduled insulin and monitor on SSI - 04/08 metformin on hold 2/2 IV contrast 04/07, change lantus to 30u BID and HDSSI on clear liquid diet for now with GIB - 04/11 Decrease Lantus to 5 units BID given GI issues - 04/13 increased to 10 unit BID and monitor POC Glucose Trend: -7-3 increase lantus to 20 BID as BG trending up since resumed clears, add premeal lispro -7/4 increase Lantus 25 b.i.d., pre meal lispro and correct high dose SSI -7/7 Increase Lantus 30 BID, meal lispro 7 TID, SSI -04/24 monitor accuchecks on diabetic diet -04/25 increase lispro to 10u qAC Assessment & Plan (04/24/2025 11:01 AM CDT): A1c 7.9% on 03/19. Home: Metformin 500 XR, jardiance 25 mg daily, lantus 79 units BID, lispro 29 units TID. Required insulin gtt @ for BG as high as 464. - Lantus 20 + HDSSI - 04/02 increase lantus to 20u BID and add metformin XR 500mg daily and monitor - 04/03 per pt home regimen lantus 72-80u BID, lispro 32u qAC, metformin XR 1000mg BID-resume slowly and monitor - 04/04 on lantus 40u BID - 04/05 add lispro 10u qAC - 04/06 patient with hypoglycemia overnight and again this am--reduce metformin XR to 1000mg daily and hold scheduled insulin and monitor on SSI - 04/08 metformin on hold 2/2 IV contrast 04/07, change lantus to 30u BID and HDSSI on clear liquid diet for now with GIB - 04/11 Decrease Lantus to 5 units BID given GI issues - 04/13 increased to 10 unit BID and monitor POC Glucose Trend: -7-3 increase lantus to 20 BID as BG trending up since resumed clears, add premeal lispro -7/4 increase Lantus 25 b.i.d., pre meal lispro and correct high dose SSI -7/7 Increase Lantus 30 BID, meal lispro 7 TID, SSI -04/24 monitor accuchecks on diabetic diet Assessment & Plan (04/23/2025 2:21 PM CDT): A1c 7.9% on 03/19. Home: Metformin 500 XR, jardiance 25 mg daily, lantus 79 units BID, lispro 29 units TID. Required insulin gtt @ [facility] for BG as high as 464. - Lantus 20 + HDSSI - 04/02 increase lantus to 20u BID and add metformin XR 500mg daily and monitor - 04/03 per pt home regimen lantus 72-80u BID, lispro 32u qAC, metformin XR 1000mg BID-resume slowly and monitor - 04/04 on lantus 40u BID - 04/05 add lispro 10u qAC - 04/06 patient with hypoglycemia overnight and again this am--reduce metformin XR to 1000mg daily and hold scheduled insulin and monitor on SSI - 04/08 metformin on hold 2/2 IV contrast 04/07, change lantus to 30u BID and HDSSI on clear liquid diet for now with GIB - 04/11 Decrease Lantus to 5 units BID given GI issues - 04/13 increased to 10 unit BID and monitor POC Glucose Trend: -7-3 increase lantus to 20 BID as BG trending up since resumed clears, add premeal lispro -/4 increase Lantus 25 b.i.d., pre meal lispro and correct high dose SSI -7/7 Increase Lantus 30 BID, meal lispro 7 TID, SSI Assessment & Plan (04/23/2025 6:07 AM CDT): A1c 7.9% on 03/19. Home: Metformin 500 XR, jardiance 25 mg daily, lantus 79 units BID, lispro 29 units TID. Required insulin gtt @ [facility] for BG as high as 464. - Lantus 20 + HDSSI - 04/02 increase lantus to 20u BID and add metformin XR 500mg daily and monitor - 04/03 per pt home regimen lantus 72-80u BID, lispro 32u qAC, metformin XR 1000mg BID-resume slowly and monitor - 04/04 on lantus 40u BID - 04/05 add lispro 10u qAC - 04/06 patient with hypoglycemia overnight and again this am--reduce metformin XR to 1000mg daily and hold scheduled insulin and monitor on SSI - 04/08 metformin on hold 2/2 IV contrast 04/07, change lantus to 30u BID and HDSSI on clear liquid diet for now with GIB - 04/11 Decrease Lantus to 5 units BID given GI issues - 04/13 increased to 10 unit BID and monitor POC Glucose Trend: 7-3 increase lantus to 20 BID as BG trending up since resumed clears, add premeal lispro Adjust insulin 7-4 increase Lantus 25 b.i.d., pre meal lispro and correct high doseSSI 7-7 Increase Lantus 30 BID , meal lispro 7 TID SSI Assessment & Plan (04/21/2025 9:58 AM CDT): A1c 7.9% on 03/19. Home: Metformin 500 XR, jardiance 25 mg daily, lantus 79 units BID, lispro 29 units TID. Required insulin gtt @ [facility] for BG as high as 464. - Lantus 20 + HDSSI - 04/02 increase lantus to 20u BID and add metformin XR 500mg daily and monitor - 04/03 per pt home regimen lantus 72-80u BID, lispro 32u qAC, metformin XR 1000mg BID-resume slowly and monitor - 04/04 on lantus 40u BID - 04/05 add lispro 10u qAC - 04/06 patient with hypoglycemia overnight and again this am--reduce metformin XR to 1000mg daily and hold scheduled insulin and monitor on SSI - 04/08 metformin on hold 2/2 IV contrast 04/07, change lantus to 30u BID and HDSSI on clear liquid diet for now with GIB - 04/11 Decrease Lantus to 5 units BID given GI issues - 04/13 increased to 10 unit BID and monitor POC Glucose Trend: 7-3 increase lantus to 20 BID as BG trending up since resumed clears, add premeal lispro Adjust insulin 7-4 increase Lantus 25 b.i.d., pre meal lispro and correct high doseSSI Assessment & Plan (04/20/2025 7:27 PM CDT): A1c 7.9% on 03/19. Home: Metformin 500 XR, jardiance 25 mg daily, lantus 79 units BID, lispro 29 units TID. Required insulin gtt @ [facility] for BG as high as 464. - Lantus 20 + HDSSI - 04/02 increase lantus to 20u BID and add metformin XR 500mg daily and monitor - 04/03 per pt home regimen lantus 72-80u BID, lispro 32u qAC, metformin XR 1000mg BID-resume slowly and monitor - 04/04 on lantus 40u BID - 04/05 add lispro 10u qAC - 04/06 patient with hypoglycemia overnight and again this am--reduce metformin XR to 1000mg daily and hold scheduled insulin and monitor on SSI - 04/08 metformin on hold 2/2 IV contrast 04/07, change lantus to 30u BID and HDSSI on clear liquid diet for now with GIB - 04/11 Decrease Lantus to 5 units BID given GI issues - 04/13 increased to 10 unit BID and monitor POC Glucose Trend: 7-3 increase lantus to 20 BID as BG trending up since resumed clears, add premeal lispro Adjust insulin 7-4 increase Lantus 25 b.i.d., pre meal lispro and correct high doseSSI Assessment & Plan (04/19/2025 8:18 PM CDT): A1c 7.9% on 03/19. Home: Metformin 500 XR, jardiance 25 mg daily, lantus 79 units BID, lispro 29 units TID. Required insulin gtt @ for BG as high as 464. - Lantus 20 + HDSSI - 04/02 increase lantus to 20u BID and add metformin XR 500mg daily and monitor - 04/03 per pt home regimen lantus 72-80u BID, lispro 32u qAC, metformin XR 1000mg BID-resume slowly and monitor - 04/04 on lantus 40u BID - 04/05 add lispro 10u qAC - 04/06 patient with hypoglycemia overnight and again this am--reduce metformin XR to 1000mg daily and hold scheduled insulin and monitor on SSI - 04/08 metformin on hold 2/2 IV contrast 04/07, change lantus to 30u BID and HDSSI on clear liquid diet for now with GIB - 04/11 Decrease Lantus to 5 units BID given GI issues - 04/13 increased to 10 unit BID and monitor POC Glucose Trend: 7-3 increase lantus to 20 BID as BG trending up since resumed clears, add premeal lispro Adjust insulin Assessment & Plan (04/18/2025 7:47 PM CDT): A1c 7.9% on 03/19. Home: Metformin 500 XR, jardiance 25 mg daily, lantus 79 units BID, lispro 29 units TID. Required insulin gtt @ [facility] for BG as high as 464. - Lantus 20 + HDSSI - 04/02 increase lantus to 20u BID and add metformin XR 500mg daily and monitor - 04/03 per pt home regimen lantus 72-80u BID, lispro 32u qAC, metformin XR 1000mg BID-resume slowly and monitor - 04/04 on lantus 40u BID - 04/05 add lispro 10u qAC - 04/06 patient with hypoglycemia overnight and again this am--reduce metformin XR to 1000mg daily and hold scheduled insulin and monitor on SSI - 04/08 metformin on hold 2/2 IV contrast 04/07, change lantus to 30u BID and HDSSI on clear liquid diet for now with GIB - 04/11 Decrease Lantus to 5 units BID given GI issues - 04/13 increased to 10 unit BID and monitor POC Glucose Trend: 7-3 increase lantus to 20 BID as BG trending up since resumed clears Assessment & Plan (04/17/2025 4:37 PM CDT): A1c 7.9% on 03/19. Home: Metformin 500 XR, jardiance 25 mg daily, lantus 79 units BID, lispro 29 units TID. Required insulin gtt @ [facility] for BG as high as 464. - Lantus 20 + HDSSI - 04/02 increase lantus to 20u BID and add metformin XR 500mg daily and monitor - 04/03 per pt home regimen lantus 72-80u BID, lispro 32u qAC, metformin XR 1000mg BID-resume slowly and monitor - 04/04 on lantus 40u BID - 04/05 add lispro 10u qAC - 04/06 patient with hypoglycemia overnight and again this am--reduce metformin XR to 1000mg daily and hold scheduled insulin and monitor on SSI - 04/08 metformin on hold 2/2 IV contrast 04/07, change lantus to 30u BID and HDSSI on clear liquid diet for now with GIB - 04/11 Decrease Lantus to 5 units BID given GI issues - 04/13 increased to 10 unit BID and monitor POC Glucose Trend Recent Labs Lab Units 04/17/25 1144 04/17/25 0742 04/17/25 0002 04/16/25 1921 04/16/25 1715 04/16/25 1129 04/16/25 0747 04/16/25 0628 GLUCOSE mg/dL -- -- -- -- -- -- -- 131 POC GLUCOSE MONITOR mg/dL 135 176 148 163 193 184 142 -- Assessment & Plan (04/16/2025 1:42 PM CDT): A1c 7.9% on 03/19. Home: Metformin 500 XR, jardiance 25 mg daily, lantus 79 units BID, lispro 29 units TID. Required insulin gtt @ for BG as high as 464. - Lantus 20 + HDSSI - 04/02 increase lantus to 20u BID and add metformin XR 500mg daily and monitor - 04/03 per pt home regimen lantus 72-80u BID, lispro 32u qAC, metformin XR 1000mg BID-resume slowly and monitor - 04/04 on lantus 40u BID - 04/05 add lispro 10u qAC - 04/06 patient with hypoglycemia overnight and again this am--reduce metformin XR to 1000mg daily and hold scheduled insulin and monitor on 04/08 metformin on hold 2/2 IV contrast 04/07, change lantus to 30u BID and HDSSI on clear liquid diet for now with GIB - 04/11 Decrease Lantus to 5 units BID given GI issues - 04/13 increased to 10 unit BID and monitor POC Glucose Trend Recent Labs Lab Units 04/16/25 1129 04/16/25 0747 04/16/25 0628 04/15/25 2003 04/15/25 1756 04/15/25 1120 04/15/25 0746 04/15/25 0537 GLUCOSE mg/dL -- -- 131 -- -- -- -- 154 POC GLUCOSE MONITOR mg/dL 184 142 -- 144 140 161 221* -- Assessment & Plan (04/15/2025 12:00 PM CDT): A1c 7.9% on 03/19. Home: Metformin 500 XR, jardiance 25 mg daily, lantus 79 units BID, lispro 29 units TID. Required insulin gtt @ [facility] for BG as high as 464. - Lantus 20 + HDSSI - 04/02 increase lantus to 20u BID and add metformin XR 500mg daily and monitor - 04/03 per pt home regimen lantus 72-80u BID, lispro 32u qAC, metformin XR 1000mg BID-resume slowly and monitor - 04/04 on lantus 40u BID - 04/05 add lispro 10u qAC - 04/06 patient with hypoglycemia overnight and again this am--reduce metformin XR to 1000mg daily and hold scheduled insulin and monitor on SSI - 04/08 metformin on hold 2/2 IV contrast 04/07, change lantus to 30u BID and HDSSI on clear liquid diet for now with GIB - 04/11 Decrease Lantus to 5 units BID given GI issues - 04/13 increased to 10 unit BID and monitor POC Glucose Trend Recent Labs Lab Units 04/15/25 1120 04/15/25 0746 04/15/25 0537 04/14/25 2048 04/14/25 1639 04/14/25 1133 04/14/25 0744 04/13/25 1952 GLUCOSE mg/dL -- -- 154 -- -- -- -- -- POC GLUCOSE MONITOR mg/dL 161 221* -- 140 169 173 210* 212* Assessment & Plan (04/14/2025 11:36 AM CDT): A1c 7.9% on 03/19. Home: Metformin 500 XR, jardiance 25 mg daily, lantus 79 units BID, lispro 29 units TID. Required insulin gtt @ [facility] for BG as high as 464. - Lantus 20 + HDSSI - 04/02 increase lantus to 20u BID and add metformin XR 500mg daily and monitor - 04/03 per pt home regimen lantus 72-80u BID, lispro 32u qAC, metformin XR 1000mg BID-resume slowly and monitor - 04/04 on lantus 40u BID - 04/05 add lispro 10u qAC - 04/06 patient with hypoglycemia overnight and again this am--reduce metformin XR to 1000mg daily and hold scheduled insulin and monitor on SSI - 04/08 metformin on hold 2/2 IV contrast 04/07, change lantus to 30u BID and HDSSI on clear liquid diet for now with GIB - 04/11 Decrease Lantus to 5 units BID given GI issues - 04/13 increased to 10 unit BID and monitor POC Glucose Trend Recent Labs Lab Units 04/14/25 1133 04/14/25 0744 04/13/25 1952 04/13/25 1712 04/13/25 1140 04/13/25 0736 04/12/25 2152 04/12/25 1934 POC GLUCOSE MONITOR mg/dL 173 210* 212* 209* 287* 230* 294* 242* Assessment & Plan (04/13/2025 9:00 AM CDT): A1c 7.9% on 03/19. Home: Metformin 500 XR, jardiance 25 mg daily, lantus 79 units BID, lispro 29 units TID. Required insulin gtt @ for BG as high as 464. - Lantus 20 + HDSSI - 04/02 increase lantus to 20u BID and add metformin XR 500mg daily and monitor - 04/03 per pt home regimen lantus 72-80u BID, lispro 32u qAC, metformin XR 1000mg BID-resume slowly and monitor - 04/04 on lantus 40u BID - 04/05 add lispro 10u qAC - 04/06 patient with hypoglycemia overnight and again this am--reduce metformin XR to 1000mg daily and hold scheduled insulin and monitor on SSI - 04/08 metformin on hold 2/2 IV contrast 04/07, change lantus to 30u BID and HDSSI on clear liquid diet for now with GIB - 04/11 Decrease Lantus to 5 units BID given GI issues Assessment & Plan (04/12/2025 12:46 PM CDT): A1c 7.9% on 6/3. Home: Metformin 500 XR, jardiance 25 mg daily, lantus 79 units BID, lispro 29 units TID. Required insulin gtt @ [facility] for BG as high as 464. - Lantus 20 + HDSSI - 04/02 increase lantus to 20u BID and add metformin XR 500mg daily and monitor - 04/03 per pt home regimen lantus 72-80u BID, lispro 32u qAC, metformin XR 1000mg BID-resume slowly and monitor - 04/04 on lantus 40u BID - 04/05 add lispro 10u qAC - 04/06 patient with hypoglycemia overnight and again this am--reduce metformin XR to 1000mg daily and hold scheduled insulin and monitor on SSI - 04/08 metformin on hold 2/2 IV contrast 04/07, change lantus to 30u BID and HDSSI on clear liquid diet for now with GIB - 04/11 Decrease Lantus to 5 units BID given GI issues Assessment & Plan (04/11/2025 11:36 AM CDT): A1c 7.9% on 03/19. Home: Metformin 500 XR, jardiance 25 mg daily, lantus 79 units BID, lispro 29 units TID. Required insulin gtt @ [facility] for BG as high as 464. - Lantus 20 + HDSSI - 04/02 increase lantus to 20u BID and add metformin XR 500mg daily and monitor - 04/03 per pt home regimen lantus 72-80u BID, lispro 32u qAC, metformin XR 1000mg BID-resume slowly and monitor - 04/04 on lantus 40u BID - 04/05 add lispro 10u qAC - 04/06 patient with hypoglycemia overnight and again this am--reduce metformin XR to 1000mg daily and hold scheduled insulin and monitor on SSI - 04/08 metformin on hold 2/2 IV contrast 04/07, change lantus to 30u BID and HDSSI on clear liquid diet for now with GIB Assessment & Plan (04/10/2025 4:18 PM CDT): A1c 7.9% on 03/19. Home: Metformin 500 XR, jardiance 25 mg daily, lantus 79 units BID, lispro 29 units TID. Required insulin gtt @ [facility] for BG as high as 464. - Lantus 20 + HDSSI - 04/02 increase lantus to 20u BID and add metformin XR 500mg daily and monitor - 18 per pt home regimen lantus 72-80u BID, lispro 32u qAC, metformin XR 1000mg BID-resume slowly and monitor - 04/04 on lantus 40u BID - 04/05 add lispro 10u qAC - 04/06 patient with hypoglycemia overnight and again this am--reduce metformin XR to 1000mg daily and hold scheduled insulin and monitor on SSI - 04/08 metformin on hold 2/2 IV contrast 04/07, change lantus to 30u BID and HDSSI on clear liquid diet for now with GIB Assessment & Plan (04/09/2025 9:12 AM CDT): A1c 7.9% on 03/19. Home: Metformin 500 XR, jardiance 25 mg daily, lantus 79 units BID, lispro 29 units TID. Required insulin gtt @ [facility] for BG as high as 464. - Lantus 20 + HDSSI - 04/02 increase lantus to 20u BID and add metformin XR 500mg daily and monitor - 04/03 per pt home regimen lantus 72-80u BID, lispro 32u qAC, metformin XR 1000mg BID-resume slowly and monitor - 04/04 on lantus 40u BID - 04/05 add lispro 10u qAC - 04/06 patient with hypoglycemia overnight and again this am--reduce metformin XR to 1000mg daily and hold scheduled insulin and monitor on SSI - 04/08 metformin on hold 2/2 IV contrast 04/07, change lantus to 30u BID and HDSSI on clear liquid diet for now with GIB Assessment & Plan (04/08/2025 12:13 PM CDT): A1c 7.9% on 03/19. Home: Metformin 500 XR, jardiance 25 mg daily, lantus 79 units BID, lispro 29 units TID. Required insulin gtt @ [facility] for BG as high as 464. - Lantus 20 + HDSSI - 04/02 increase lantus to 20u BID and add metformin XR 500mg daily and monitor - 04/03 per pt home regimen lantus 72-80u BID, lispro 32u qAC, metformin XR 1000mg BID-resume slowly and monitor - 04/04 on lantus 40u BID - 04/05 add lispro 10u qAC - 04/06 patient with hypoglycemia overnight and again this am--reduce metformin XR to 1000mg daily and hold scheduled insulin and monitor on SSI - 04/08 metformin on hold 2/2 IV contrast 04/07, change lantus to 30u BID and HDSSI on clear liquid diet for now with GIB Assessment & Plan (04/07/2025 11:34 AM CDT): A1c 7.9% on 03/19. Home: Metformin 500 XR, jardiance 25 mg daily, lantus 79 units BID, lispro 29 units TID. Required insulin gtt @ [facility] for BG as high as 464. - Lantus 20 + HDSSI - 04/02 increase lantus to 20u BID and add metformin XR 500mg daily and monitor - 04/03 per pt home regimen lantus 72-80u BID, lispro 32u qAC, metformin XR 1000mg BID-resume slowly and monitor - 04/04 on lantus 40u BID - 04/05 add lispro 10u qAC - 04/06 patient with hypoglycemia overnight and again this am--reduce metformin XR to 1000mg daily and hold scheduled insulin and monitor on SSI Assessment & Plan (04/06/2025 10:54 AM CDT): A1c 7.9% on 03/19. Home: Metformin 500 XR, jardiance 25 mg daily, lantus 79 units BID, lispro 29 units TID. Required insulin gtt @ [facility] for BG as high as 464. - Lantus 20 + HDSSI - 04/02 increase lantus to 20u BID and add metformin XR 500mg daily and monitor - 18 per pt home regimen lantus 72-80u BID, lispro 32u qAC, metformin XR 1000mg BID-resume slowly and monitor - 04/04 on lantus 40u BID - 04/05 add lispro 10u qAC - 04/06 patient with hypoglycemia overnight and again this am--reduce metformin XR to 1000mg daily and hold scheduled insulin and monitor on SSI Assessment & Plan (04/05/2025 12:28 PM CDT): A1c 7.9% on 03/19. Home: Metformin 500 XR, jardiance 25 mg daily, lantus 79 units BID, lispro 29 units TID. Required insulin gtt @ [facility] for BG as high as 464. - Lantus 20 + HDSSI - 17 increase lantus to 20u BID and add metformin XR 500mg daily and monitor - 6/18 per pt home regimen lantus 72-80u BID, lispro 32u qAC, metformin XR 1000mg BID-resume slowly and monitor - 6 on lantus 40u BID - 04/05 add lispro 10u qAC Assessment & Plan (04/04/2025 11:26 AM CDT): A1c 7.9% on 03/19. Home: Metformin 500 XR, jardiance 25 mg daily, lantus 79 units BID, lispro 29 units TID. Required insulin gtt @ [facility] for BG as high as 464. - Lantus 20 + HDSSI - 17 increase lantus to 20u BID and add metformin XR 500mg daily and monitor - 6/18 per pt home regimen lantus 72-80u BID, lispro 32u qAC, metformin XR 1000mg BID-resume slowly and monitor - 6/19 on lantus 40u BID Assessment & Plan (04/03/2025 11:53 AM CDT): A1c 7.9% on 03/19. Home: Metformin 500 XR, jardiance 25 mg daily, lantus 79 units BID, lispro 29 units TID. Required insulin gtt @ [facility] for BG as high as 464. - Lantus 20 + HDSSI - 6/17 increase lantus to 20u BID and add metformin XR 500mg daily and monitor -6/18 per pt home regimen lantus 72-80u BID, lispro 32u qAC, metformin XR 100mg BID-resume slowly and mnitor Assessment & Plan (04/02/2025 10:42 AM CDT): A1c 7.9% on 03/19. Home: Metformin 500 XR, jardiance 25 mg daily, lantus 79 units BID, lispro 29 units TID. Required insulin gtt @ [facility] for BG as high as 464. - Lantus 20 + HDSSI - 04/02 increase lantus to 20u BID and add metformin XR 500mg daily and monitor Assessment & Plan (04/01/2025 7:24 AM CDT): A1c 7.9% on 03/19. Home: Metformin 500 XR, jardiance 25 mg daily, lantus 79 units BID, lispro 29 units TID. Required insulin gtt @ [facility] for BG as high as 464. - Lantus 20 + HDSSI Assessment & Plan (03/31/2025 2:26 PM CDT): A1c 7.9% on 03/19. Home: Metformin 500 XR, jardiance 25 mg daily, lantus 79 units BID, lispro 29 units TID. Required insulin gtt @ [facility] for BG as high as 464. - Lantus 20 + HDSSI Periodic limb movement disorder 09/18/2009 ERIKA on CPAP 09/18/2009 Assessment & Plan (05/10/2025 7:59 AM CDT): IMPROVING Acute respiratory failure multifactorial. Now off oxygen Baseline Asthma and ERIKA on CPAP. Post shock/PEA arrest requiring intubation 03/26-03/30 c/b pneumonia bilateral pneumothorax. 2/2 compressions after PEA arrest 03/27 s/p placement of bilateral chest tubes - chest tubes removed 04/02 & F/U Chest x-ray stable Chest tube management-now Dc'd 05/02 Increased diuretics from 40 lasix po BID to 40 IV BID 05/02 Bilateral pleural effusions on x-ray 05/01 and new oxygen requirement 05/02. 1.3 L out, goal 1.5-2 L but overall +220ml. Repeat chest x-ray decreased effusions. Restricting fluids to <1.5L. 05/03 Urine output 950 documented but blood pressure stable with diuresis, improving. Follow electrolytes, replaced mag and potassium as needed 05/04 Increased Lasix from 40 BID to 60 BID IV 05/05 Lasix 80mg PO BID PLAN - Home inhalers: Breo in place of Dulera (not in formulary), continue scheduled albuterol nebs - Resume home [id number] adherent to treatment - IS --Follow up CXR in AM, lung sounds decreased on the RLL --Follow up CT if new symptoms Assessment & Plan (05/09/2025 7:59 AM CDT): IMPROVING Acute respiratory failure multifactorial. Now off oxygen Baseline Asthma and ERIKA on CPAP. Post shock/PEA arrest requiring intubation 03/26-03/30 c/b pneumonia bilateral pneumothorax. 2/2 compressions after PEA arrest 03/27 s/p placement of bilateral chest tubes - chest tubes removed 04/02 & F/U Chest x-ray stable Chest tube management-now Dc'd 05/02 Increased diuretics from 40 lasix po BID to 40 IV BID 05/02 Bilateral pleural effusions on x-ray 05/01 and new oxygen requirement 05/02. 1.3 L out, goal 1.5-2 L but overall +220ml. Repeat chest x-ray decreased effusions. Restricting fluids to <1.5L. 05/03 Urine output 950 documented but blood pressure stable with diuresis, improving. Follow electrolytes, replaced mag and potassium as needed 05/04 Increased Lasix from 40 BID to 60 BID IV 05/05 Lasix 80mg PO BID PLAN - Home inhalers: Breo in place of Dulera (not in formulary), continue scheduled albuterol nebs - Resume home [id number] adherent to treatment - IS --Follow up CXR in AM, lung sounds decreased on the RLL --Follow up CT if new symptoms Assessment & Plan (05/08/2025 7:40 AM CDT): IMPROVING Acute respiratory failure multifactorial. Now off oxygen Baseline Asthma and ERIKA on CPAP. Post shock/PEA arrest requiring intubation 03/26-03/30 c/b pneumonia bilateral pneumothorax. 2/2 compressions after PEA arrest 03/27 s/p placement of bilateral chest tubes - chest tubes removed 04/02 & F/U Chest x-ray stable Chest tube management-now Dc'd 05/02 Increased diuretics from 40 lasix po BID to 40 IV BID 05/02 Bilateral pleural effusions on x-ray 05/01 and new oxygen requirement 05/02. 1.3 L out, goal 1.5-2 L but overall +220ml. Repeat chest x-ray decreased effusions. Restricting fluids to <1.5L. 05/03 Urine output 950 documented but blood pressure stable with diuresis, improving. Follow electrolytes, replaced mag and potassium as needed 05/04 Increased Lasix from 40 BID to 60 BID IV 05/05 Lasix 80mg PO BID PLAN - Home inhalers: Breo in place of Dulera (not in formulary), continue scheduled albuterol nebs - Resume home [id number] adherent to treatment - IS --Follow up CXR in AM, lung sounds decreased on the RLL --Follow up CT if new symptoms Assessment & Plan (05/07/2025 7:31 AM CDT): IMPROVING Acute respiratory failure multifactorial. Now off oxygen Baseline Asthma and ERIKA on CPAP. Post shock/PEA arrest requiring intubation 03/26-03/30 c/b pneumonia bilateral pneumothorax. 2/2 compressions after PEA arrest 03/27 s/p placement of bilateral chest tubes - chest tubes removed 04/02 & F/U Chest x-ray stable Chest tube management-now Dc'd 05/02 Increased diuretics from 40 lasix po BID to 40 IV BID 05/02 Bilateral pleural effusions on x-ray 05/01 and new oxygen requirement 05/02. 1.3 L out, goal 1.5-2 L but overall +220ml. Repeat chest x-ray decreased effusions. Restricting fluids to <1.5L. 05/03 Urine output 950 documented but blood pressure stable with diuresis, improving. Follow electrolytes, replaced mag and potassium as needed 05/04 Increased Lasix from 40 BID to 60 BID IV 05/05 Lasix 80mg PO BID PLAN - Home inhalers: Breo in place of Dulera (not in formulary), continue scheduled albuterol nebs - Resume home [id number] adherent to treatment - IS --Follow up CXR in AM, lung sounds decreased on the RLL --Follow up CT if new symptoms Assessment & Plan (05/06/2025 4:49 PM CDT): IMPROVING Acute respiratory failure multifactorial. Now off oxygen Baseline Asthma and ERIKA on CPAP. Post shock/PEA arrest requiring intubation 03/26-03/30 c/b pneumonia bilateral pneumothorax. 2/2 compressions after PEA arrest 03/27 s/p placement of bilateral chest tubes - chest tubes removed 04/02 & F/U Chest x-ray stable Chest tube management-now Dc'd 05/02 Increased diuretics from 40 lasix po BID to 40 IV BID 05/02 Bilateral pleural effusions on x-ray 05/01 and new oxygen requirement 05/02. 1.3 L out, goal 1.5-2 L but overall +220ml. Repeat chest x-ray decreased effusions. Restricting fluids to <1.5L. 05/03 Urine output 950 documented but blood pressure stable with diuresis, improving. Follow electrolytes, replaced mag and potassium as needed 05/04 Increased Lasix from 40 BID to 60 BID IV 05/05 Lasix 80mg PO BID PLAN - Home inhalers: Breo in place of Dulera (not in formulary), continue scheduled albuterol nebs - Resume home [id number] adherent to treatment - IS --Follow up CXR in AM, lung sounds decreased on the RLL --Follow up CT if new symptoms Assessment & Plan (05/05/2025 3:50 PM CDT): IMPROVING Acute respiratory failure multifactorial. Now off oxygen Baseline Asthma and ERIKA on CPAP. Post shock/PEA arrest requiring intubation 03/26-03/30 c/b pneumonia bilateral pneumothorax. 2/2 compressions after PEA arrest 03/27 s/p placement of bilateral chest tubes - chest tubes removed 04/02 & F/U Chest x-ray stable Chest tube management-now Dc'd 05/02 Increased diuretics from 40 lasix po BID to 40 IV BID 05/02 Bilateral pleural effusions on x-ray 05/01 and new oxygen requirement 05/02. 1.3 L out, goal 1.5-2 L but overall +220ml. Repeat chest x-ray decreased effusions. Restricting fluids to <1.5L. 05/03 Urine output 950 documented but blood pressure stable with diuresis, improving. Follow electrolytes, replaced mag and potassium as needed 05/04 Increased Lasix from 40 BID to 60 BID IV 05/05 Lasix 80mg PO BID PLAN - Home inhalers: Breo in place of Dulera (not in formulary), continue scheduled albuterol nebs - Resume home [id number] adherent to treatment - IS --Follow up CXR in AM, lung sounds decreased on the RLL --Follow up CT if new symptoms Assessment & Plan (05/04/2025 10:31 AM CDT): Baseline Asthma and ERIKA on CPAP. Post shock/PEA arrest requiring intubation 03/26-03/30 c/b pneumonia bilateral pneumothorax - chest tube management-now DC'd - Home inhalers: Breo in place of Dulera (not in formulary), continue scheduled albuterol nebs - Resume home [id number] adherent to treatment - IS -Increased O2 requirement overnight, 2L for sat's 90% 7/16 at rest. Weaned off during the day but 88% again overnight so back on 2L 05/02 Increased diuretics from 40 lasix po BID to 40 IV BID 05/02 Bilateral pleural effusions on x-ray 05/01 and new oxygen requirement 05/02. 1.3 L out, goal 1.5-2 L but overall +220ml. Repeat chest x-ray decreased effusions. Restricting fluids to <1.5L. 05/03 Urine output 950 documented but blood pressure stable with diuresis, improving. Follow electrolytes, replaced mag and potassium as needed PLAN --Continue scheduled potassium 10meq BID --Mag 1.5<1.8 after 2G. Continue to follow mag. Receiving mag 400mg daily Assessment & Plan (05/03/2025 1:23 PM CDT): Baseline Asthma and ERIKA on CPAP. Post shock/PEA arrest requiring intubation 03/26-03/30 c/b pneumonia bilateral pneumothorax - chest tube management-now DC'd - Home inhalers: Breo in place of Dulera (not in formulary), continue scheduled albuterol nebs - Resume home [id number] adherent to treatment - IS -Increased O2 requirement overnight, 2L for sat's 90% /16 at rest. Weaned off during the day but 88% again overnight so back on 2L -Increased diuretics from 40 lasix po BID to 40 IV BID 05/02 -Bilateral pleural effusions on x-ray 05/01 and new oxygen requirement 05/02. 1.3 L out, goal 1.5-2 L but overall +220ml. Repeating chest x-ray today. Restricting fluids to <1.5L. May need to increase IV diuretics if blood pressure tolerates, 102/58 today (05/03) Thoracentesis if persistent effusion despite diuretics --Follow electrolytes, replace mag and potassium as needed --Scheduled potassium 10meq BID --Mag 1.5<1.8 after 2G. Continue to follow mag. Receiving mag 400mg daily Assessment & Plan (05/02/2025 1:13 PM CDT): Baseline Asthma and ERIKA on CPAP. Post shock/PEA arrest requiring intubation 03/26-03/30 c/b pneumonia bilateral pneumothorax - chest tube management-now DC'd - Home inhalers: Breo in place of Dulera (not in formulary), continue scheduled albuterol nebs - Resume home [id number] adherent to treatment - IS -Increased O2 requirement overnight, 2L for sat's 90's at rest. -Increased diuretics from 40 lasix po BID to 40 IV BID -Bilateral pleural effusions on x-ray 05/01 and new oxygen requirement this morning. Repeat x-ray after diuresing. 1.1 L out yesterday, goal 1.5-2 L --Follow electrolytes, replace mag and potassium as needed --Scheduled potassium 10meq BID --Mag 1.5<1.8 after 2G. Additional 2G IV today Assessment & Plan (04/30/2025 5:18 PM CDT): Baseline Asthma and ERIKA on CPAP. Post shock/PEA arrest requiring intubation 03/26-03/30 c/b pneumonia bilateral pneumothorax - chest tube management-now DC'd - Home inhalers: Breo in place of Dulera (not in formulary), continue scheduled albuterol nebs - Resume home [id number] adherent to treatment - IS Assessment & Plan (04/29/2025 10:33 AM CDT): Baseline Asthma and ERIKA on CPAP. Post shock/PEA arrest requiring intubation 03/26-03/30 c/b pneumonia bilateral pneumothorax - chest tube management-now DC'd - Home inhalers: Breo in place of Dulera (not in formulary), continue scheduled albuterol nebs - Resume home [id number] adherent to treatment - IS Assessment & Plan (04/28/2025 11:48 AM CDT): Baseline Asthma and ERIKA on CPAP. Post shock/PEA arrest requiring intubation 03/26-03/30 c/b pneumonia bilateral pneumothorax - chest tube management-now DC'd - Home inhalers: Breo in place of Dulera (not in formulary), continue scheduled albuterol nebs - Resume home [id number] adherent to treatment - IS Assessment & Plan (04/27/2025 9:58 AM CDT): Baseline Asthma and ERIKA on CPAP. Post shock/PEA arrest requiring intubation 03/26-03/30 c/b pneumonia bilateral pneumothorax - chest tube management-now DC'd - Home inhalers: Breo in place of Dulera (not in formulary), continue scheduled albuterol nebs - Resume home [id number] adherent to treatment - IS Assessment & Plan (04/26/2025 10:07 AM CDT): Baseline Asthma and ERIKA on CPAP. Post shock/PEA arrest requiring intubation 03/26-03/30 c/b pneumonia bilateral pneumothorax - chest tube management-now DC'd - Home inhalers: Breo in place of Dulera (not in formulary), continue scheduled albuterol nebs - Resume home [id number] adherent to treatment - IS Assessment & Plan (04/25/2025 10:43 AM CDT): Baseline Asthma and ERIKA on CPAP. Post shock/PEA arrest requiring intubation 03/26-03/30 c/b pneumonia bilateral pneumothorax - chest tube management-now DC'd - Home inhalers: Breo in place of Dulera (not in formulary), continue scheduled albuterol nebs - Resume home [id number] adherent to treatment - IS Assessment & Plan (04/24/2025 11:01 AM CDT): Baseline Asthma and ERIKA on CPAP. Post shock/PEA arrest requiring intubation 03/26-03/30 c/b pneumonia bilateral pneumothorax - chest tube management-now DC'd - Home inhalers: Breo in place of Dulera (not in formulary), continue scheduled albuterol nebs - Resume home [id number] adherent to treatment - IS Assessment & Plan (04/23/2025 2:21 PM CDT): Baseline Asthma and ERIKA on CPAP. Post shock/PEA arrest requiring intubation 03/26-03/30 c/b pneumonia bilateral pneumothorax - chest tube management-now DC'd - Home inhalers: Breo in place of Dulera (not in formulary), continue scheduled albuterol nebs - Resume home [id number] adherent to treatment - IS Assessment & Plan (04/23/2025 6:07 AM CDT): Baseline Asthma and ERIKA on CPAP. Post shock/PEA arrest requiring intubation 03/26-03/30 c/b pneumonia bilateral pneumothorax - chest tube management-now DC'd - Home inhalers: Breo in place of Dulera (not in formulary), continue scheduled albuterol nebs - Resume home [id number] adherent to treatment - IS Assessment & Plan (04/21/2025 8:10 PM CDT): Baseline Asthma and ERIKA on CPAP. Post shock/PEA arrest requiring intubation 03/26-03/30 c/b pneumonia bilateral pneumothorax - chest tube management-now DC'd - Home inhalers: Breo in place of Dulera (not in formulary), continue scheduled albuterol nebs - Resume home [id number] adherent to treatment - IS Assessment & Plan (04/20/2025 2:26 PM CDT): Baseline Asthma and ERIKA on CPAP. Post shock/PEA arrest requiring intubation 03/26-03/30 c/b pneumonia bilateral pneumothorax - chest tube management-now DC'd - Home inhalers: Breo in place of Dulera (not in formulary), continue scheduled albuterol nebs - Resume home auto-CPAP - IS Assessment & Plan (04/19/2025 12:35 PM CDT): Baseline Asthma and ERIKA on CPAP. Post shock/PEA arrest requiring intubation 03/26-03/30 c/b pneumonia bilateral pneumothorax - chest tube management-now DC'd - Home inhalers: Breo in place of Dulera (not in formulary), continue scheduled albuterol nebs - Resume home auto-CPAP - IS Assessment & Plan (04/18/2025 4:09 PM CDT): Baseline Asthma and ERIKA on CPAP. Post shock/PEA arrest requiring intubation 03/26-03/30 c/b pneumonia bilateral pneumothorax - chest tube management-now DC'd - Home inhalers: Breo in place of Dulera (not in formulary), continue scheduled albuterol nebs - Resume home auto-CPAP - IS Assessment & Plan (04/17/2025 4:37 PM CDT): Baseline Asthma and ERIKA on CPAP. Post shock/PEA arrest requiring intubation 03/26-03/30 c/b pneumonia bilateral pneumothorax - chest tube management-now DC'd - Home inhalers: Breo in place of Dulera (not in formulary), continue scheduled albuterol nebs - Resume home auto-CPAP - IS Assessment & Plan (04/16/2025 1:42 PM CDT): Baseline Asthma and ERIKA on CPAP. Post shock/PEA arrest requiring intubation 03/26-03/30 c/b pneumonia bilateral pneumothorax - chest tube management-now DC'd - Home inhalers: Breo in place of Dulera (not in formulary), continue scheduled albuterol nebs - Resume home auto-CPAP - IS Assessment & Plan (04/15/2025 12:00 PM CDT): Baseline Asthma and ERIKA on CPAP. Post shock/PEA arrest requiring intubation 03/26-03/30 c/b pneumonia bilateral pneumothorax - chest tube management-now DC'd - Home inhalers: Breo in place of Dulera (not in formulary), continue scheduled albuterol nebs - Resume home auto-CPAP - IS Assessment & Plan (04/14/2025 8:46 AM CDT): Baseline Asthma and ERIKA on CPAP. Post shock/PEA arrest requiring intubation 03/26-03/30 c/b pneumonia bilateral pneumothorax - chest tube management-now DC'd - Home inhalers: Breo in place of Dulera (not in formulary), continue prn albuterol-uses nebs-says MDI not working - Resume home auto-CPAP - IS Paroxysmal atrial fibrillation 04/25/2008 Overview (01/19/2017): ATRIAL FIBRILLATION Assessment & Plan (05/10/2025 7:59 AM CDT): STABLE S/p ablation x2. Previously on warfarin -Holding home metoprolol while in shock and risk of -Holding AC - plan to switch to Eliquis -resumed metoprolol 6/17 -resumed eliquis 6/18 ($0 copay)-DC with bleeding-not anticoag candidate -started ECASA 81mg 04/25 Assessment & Plan (05/09/2025 7:59 AM CDT): STABLE S/p ablation x2. Previously on warfarin -Holding home metoprolol while in shock and risk of -Holding AC - plan to switch to Eliquis -resumed metoprolol 6/17 -resumed eliquis 6/18 ($0 copay)-DC with bleeding-not anticoag candidate -started ECASA 81mg 10 Assessment & Plan (05/08/2025 7:40 AM CDT): STABLE S/p ablation x2. Previously on warfarin -Holding home metoprolol while in shock and risk of -Holding AC - plan to switch to Eliquis -resumed metoprolol 6/17 -resumed eliquis 6/18 ($0 copay)-DC with bleeding-not anticoag candidate -started ECASA 81mg 10 Assessment & Plan (05/07/2025 7:31 AM CDT): STABLE S/p ablation x2. Previously on warfarin -Holding home metoprolol while in shock and risk of -Holding AC - plan to switch to Eliquis -resumed metoprolol 6/17 -resumed eliquis 6/18 ($0 copay)-DC with bleeding-not anticoag candidate -started ECASA 81mg 7/10 Assessment & Plan (05/06/2025 4:49 PM CDT): STABLE S/p ablation x2. Previously on warfarin -Holding home metoprolol while in shock and risk of -Holding AC - plan to switch to Eliquis -resumed metoprolol 6/17 -resumed eliquis 6/18 ($0 copay)-DC with bleeding-not anticoag candidate -started ECASA 81mg 7/10 Assessment & Plan (05/05/2025 3:50 PM CDT): STABLE S/p ablation x2. Previously on warfarin -Holding home metoprolol while in shock and risk of -Holding AC - plan to switch to Eliquis -resumed metoprolol 6/17 -resumed eliquis 6/18 ($0 copay)-DC with bleeding-not anticoag candidate -started ECASA 81mg 7/10 Assessment & Plan (05/04/2025 10:31 AM CDT): S/p ablation x2. Previously on warfarin -Holding home metoprolol while in shock and risk of -Holding AC - plan to switch to Eliquis -resumed metoprolol 6/17 -resumed eliquis 6/18 ($0 copay)-DC with bleeding-not anticoag candidate -started ECASA 81mg 7/10 Assessment & Plan (05/03/2025 1:22 PM CDT): S/p ablation x2. Previously on warfarin -Holding home metoprolol while in shock and risk of -Holding AC - plan to switch to Eliquis -resumed metoprolol 6/17 -resumed eliquis 6/18 ($0 copay)-DC with bleeding-not anticoag candidate -started ECASA 81mg 7/10 Assessment & Plan (05/02/2025 11:00 AM CDT): S/p ablation x2. Previously on warfarin -Holding home metoprolol while in shock and risk of -Holding AC - plan to switch to Eliquis -resumed metoprolol 6/17 -resumed eliquis 6/18 ($0 copay)-DC with bleeding-not anticoag candidate -start ECASA 81mg 710 Assessment & Plan (04/30/2025 5:18 PM CDT): S/p ablation x2. Previously on warfarin -Holding home metoprolol while in shock and risk of -Holding AC - plan to switch to Eliquis -resumed metoprolol 6/17 -resumed eliquis 6/18 ($0 copay)-DC with bleeding-not anticoag candidate -start ECASA 81mg 710 Assessment & Plan (04/29/2025 10:33 AM CDT): S/p ablation x2. Previously on warfarin -Holding home metoprolol while in shock and risk of -Holding AC - plan to switch to Eliquis -resume metoprolol 6/17 -resume eliquis 6/18 ($0 copay)-DC with bleeding-not anticoag candidate -start ECASA 81mg 7/10 Assessment & Plan (04/28/2025 11:48 AM CDT): S/p ablation x2. Previously on warfarin -Holding home metoprolol while in shock and risk of -Holding AC - plan to switch to Eliquis -resume metoprolol 6/17 -resume eliquis 6/18 ($0 copay)-DC with bleeding-not anticoag candidate -start ECASA 81mg 7/10 Assessment & Plan (04/27/2025 9:58 AM CDT): S/p ablation x2. Previously on warfarin -Holding home metoprolol while in shock and risk of -Holding AC - plan to switch to Eliquis -resume metoprolol 6/17 -resume eliquis 6/18 ($0 copay)-DC with bleeding-not anticoag candidate -start ECASA 81mg 710 Assessment & Plan (04/26/2025 10:07 AM CDT): S/p ablation x2. Previously on warfarin -Holding home metoprolol while in shock and risk of -Holding AC - plan to switch to Eliquis -resume metoprolol 6/17 -resume eliquis 6/18 ($0 copay)-DC with bleeding-not anticoag candidate -start ECASA 81mg 10 Assessment & Plan (04/25/2025 10:43 AM CDT): S/p ablation x2. Previously on warfarin -Holding home metoprolol while in shock and risk of -Holding AC - plan to switch to Eliquis -resume metoprolol 6/17 -resume eliquis 6/18 ($0 copay)-DC with bleeding-not anticoag candidate -start ECASA 81mg 10 Assessment & Plan (04/24/2025 11:01 AM CDT): S/p ablation x2. Previously on warfarin -Holding home metoprolol while in shock and risk of -Holding AC - plan to switch to Eliquis -resume metoprolol 6/17 -resume eliquis 6/18 ($0 copay)-on hold with bleeding Assessment & Plan (04/23/2025 2:21 PM CDT): S/p ablation x2. Previously on warfarin -Holding home metoprolol while in shock and risk of -Holding AC - plan to switch to Eliquis -resume metoprolol 6/17 -resume eliquis 6/18 ($0 copay)-on hold with bleeding Assessment & Plan (04/23/2025 6:07 AM CDT): S/p ablation x2. Previously on warfarin -Holding home metoprolol while in shock and risk of -Holding AC - plan to switch to Eliquis -resume metoprolol 6/17 -resume eliquis 6/18 ($0 copay)-on hold with bleeding Assessment & Plan (04/21/2025 9:58 AM CDT): S/p ablation x2. Previously on warfarin -Holding home metoprolol while in shock and risk of -Holding AC - plan to switch to Eliquis -resume metoprolol 6/17 -resume eliquis 6/18 ($0 copay)-on hold with bleeding Assessment & Plan (04/20/2025 2:26 PM CDT): S/p ablation x2. Previously on warfarin -Holding home metoprolol while in shock and risk of -Holding AC - plan to switch to Eliquis -resume metoprolol 6/17 -resume eliquis 6/18 ($0 copay)-on hold with bleeding Assessment & Plan (04/19/2025 8:18 PM CDT): S/p ablation x2. Previously on warfarin -Holding home metoprolol while in shock and risk of -Holding AC - plan to switch to Eliquis -resume metoprolol 6/17 -resume eliquis 6/18 ($0 copay)-on hold with bleeding Assessment & Plan (04/18/2025 7:47 PM CDT): S/p ablation x2. Previously on warfarin -Holding home metoprolol while in shock and risk of -Holding AC - plan to switch to Eliquis -resume metoprolol 6/17 -resume eliquis 6/18 ($0 copay)-on hold withh bleeding Assessment & Plan (04/17/2025 4:37 PM CDT): S/p ablation x2. Previously on warfarin -Holding home metoprolol while in shock and risk of -Holding AC - plan to switch to Eliquis -resume metoprolol 6/17 -resume eliquis 6/18 ($0 copay)-on hold Assessment & Plan (04/16/2025 1:42 PM CDT): S/p ablation x2. Previously on warfarin -Holding home metoprolol while in shock and risk of -Holding AC - plan to switch to Eliquis -resume metoprolol 6/17 -resume eliquis 6/18 ($0 copay)-on hold Assessment & Plan (04/15/2025 8:16 AM CDT): S/p ablation x2. Previously on warfarin -Holding home metoprolol while in shock and risk of -Holding AC - plan to switch to Eliquis -resume metoprolol 6/17 -resume eliquis 6/18 ($0 copay)-on hold Assessment & Plan (04/14/2025 8:46 AM CDT): S/p ablation x2. Previously on warfarin -Holding home metoprolol while in shock and risk of -Holding AC - plan to switch to Eliquis -resume metoprolol 6/17 -resume eliquis 6/18 ($0 copay)-on hold Assessment & Plan (04/13/2025 9:00 AM CDT): S/p ablation x2. Previously on warfarin -Holding home metoprolol while in shock and risk of -Holding AC - plan to switch to Eliquis -resume metoprolol 6/17 -resume eliquis 6/18 ($0 copay)-on hold Assessment & Plan (04/12/2025 12:46 PM CDT): S/p ablation x2. Previously on warfarin -Holding home metoprolol while in shock and risk of -Holding AC - plan to switch to Eliquis -resume metoprolol 6/17 -resume eliquis 6/18 ($0 copay)-on hold Assessment & Plan (04/11/2025 11:36 AM CDT): S/p ablation x2. Previously on warfarin -Holding home metoprolol while in shock and risk of -Holding AC - plan to switch to Eliquis -resume metoprolol 6/17 -resume eliquis 6/18 ($0 copay)-on hold Assessment & Plan (04/10/2025 4:18 PM CDT): S/p ablation x2. Previously on warfarin -Holding home metoprolol while in shock and risk of -Holding AC - plan to switch to Eliquis -resume metoprolol 6/17 -resume eliquis 6/18 ($0 copay)-on hold Assessment & Plan (04/09/2025 9:12 AM CDT): S/p ablation x2. Previously on warfarin -Holding home metoprolol while in shock and risk of -Holding AC - plan to switch to Eliquis -resume metoprolol 6/17 -resume eliquis 6/18 ($0 copay)-on hold Assessment & Plan (04/08/2025 12:13 PM CDT): S/p ablation x2. Previously on warfarin -Holding home metoprolol while in shock and risk of -Holding AC - plan to switch to Eliquis -resume metoprolol 6/17 -resume eliquis 6/18 ($0 copay)-on hold Assessment & Plan (04/07/2025 11:34 AM CDT): S/p ablation x2. Previously on warfarin -Holding home metoprolol while in shock and risk of -Holding AC - plan to switch to Eliquis -resume metoprolol 6/17 -resume eliquis 6/18 ($0 copay) Assessment & Plan (04/06/2025 10:54 AM CDT): S/p ablation x2. Previously on warfarin -Holding home metoprolol while in shock and risk of -Holding AC - plan to switch to Eliquis -resume metoprolol 6/17 -resume eliquis 6/18 ($0 copay) Assessment & Plan (04/05/2025 12:28 PM CDT): S/p ablation x2. Previously on warfarin -Holding home metoprolol while in shock and risk of -Holding AC - plan to switch to Eliquis -resume metoprolol 6/17 -resume eliquis 6/18 ($0 copay) Assessment & Plan (04/04/2025 11:26 AM CDT): S/p ablation x2. Previously on warfarin -Holding home metoprolol while in shock and risk of -Holding AC - plan to switch to Eliquis -resume metoprolol 04/02 -resume eliquis 04/03 ($0 copay) Assessment & Plan (04/03/2025 11:53 AM CDT): S/p ablation x2. Previously on warfarin -Holding home metoprolol while in shock and risk of -Holding AC - plan to switch to Eliquis -resume metoprolol 04/02 - resume eliquis 04/03 Assessment & Plan (04/02/2025 10:42 AM CDT): S/p ablation x2. Previously on warfarin -Holding home metoprolol while in shock and risk of -Holding AC - plan to switch to Eliquis -resume metoprolol 04/02 Assessment & Plan (04/01/2025 7:24 AM CDT): S/p ablation x2. Previously on warfarin -Holding home metoprolol while in shock and risk of -Holding AC - plan to switch to Eliquis Assessment & Plan (03/31/2025 2:26 PM CDT): S/p ablation x2. Previously on warfarin -Holding home metoprolol while in shock and risk of -Holding AC - plan to switch to Eliquis Assessment & Plan (06/28/2017 9:21 PM CDT): History of PAF, status post 2 ablation. No clinical recurrence of significant atrial fibrillation. Resolved Problems Problem Noted Date Diagnosed Date Resolved Date Retroperitoneal bleeding 03/31/2025 Assessment & Plan (05/05/2025 3:50 PM CDT): STABLE Post procedural bleeding from groin site failed direct pressure control. Early in AM on 03/26 had hypotension, concern for hemorrhagic shock 2/2 RP bleeding. MTP activated, 2 stents placed in R external iliac. In ICU, persistent shock and high NE, vasopressin requirement despite ongoing transfusions. 03/26 CTA Active hemorrhage occurring in the posterior aspect of the large right iliac fossa hematoma. The opacification of a small right ilial lumbar branch arising from the right internal iliac artery seems to be extending into the area of Densities which represents acute active bleeding. The adjacent external iliac artery contains a long stent. Sent here for management IMAGING 03/26 urgently taken to IR : a small focus of active extravasation/pseudoaneurysm from a branch of internal iliac artery was treated with a right internal iliac artery coil and Obsidio embolization. No evidence of further bleeding on repeat imaging. Weaned off pressors. Restarted plavix 04/04 and eliquis 04/03. Now on hold since 04/07 for GIB 03/26 CT with Large right retroperitoneal hematoma which measures up to 13.6 x 20.6 x 22.5 cm with a redemonstrated layering contrast blush which overall is similar in size compared to prior. off eliquis/plavix-no plan to restart. Hematoma causing some RLQ abd pain-add PRN oxycodone. Improved with lidoderm patches S/p 7 units prbcs, 3 units FFP, 1 platelets -Now stabilized, Hgb 8.8-10.2 in the last week Assessment & Plan (05/04/2025 10:31 AM CDT): Post procedural bleeding from groin site failed direct pressure control. Early in AM on 03/26 had hypotension, concern for hemorrhagic shock 2/2 RP bleeding. MTP activated, 2 stents placed in R external iliac. In ICU, persistent shock and high NE, vasopressin requirement despite ongoing transfusions. 03/26 CTA Active hemorrhage occurring in the posterior aspect of the large right iliac fossa hematoma. The opacification of a small right ilial lumbar branch arising from the right internal iliac artery seems to be extending into the area of Densities which represents acute active bleeding. The adjacent external iliac artery contains a long stent. Sent here for management IMAGING 03/26 urgently taken to IR : a small focus of active extravasation/pseudoaneurysm from a branch of internal iliac artery was treated with a right internal iliac artery coil and Obsidio embolization. No evidence of further bleeding on repeat imaging. Weaned off pressors. Restarted plavix 04/04 and eliquis 04/03. Now on hold since 04/07 for GIB 03/26 CT with Large right retroperitoneal hematoma which measures up to 13.6 x 20.6 x 22.5 cm with a redemonstrated layering contrast blush which overall is similar in size compared to prior. off eliquis/plavix-no plan to restart. Hematoma causing some RLQ abd pain-add PRN oxycodone. Improved with lidoderm patches Assessment & Plan (05/03/2025 1:22 PM CDT): Post procedural bleeding from groin site failed direct pressure control. Early in AM on 03/26 had hypotension, concern for hemorrhagic shock 2/2 RP bleeding. MTP activated, 2 stents placed in R external iliac. In ICU, persistent shock and high NE, vasopressin requirement despite ongoing transfusions. 03/26 CTA Active hemorrhage occurring in the posterior aspect of the large right iliac fossa hematoma. The opacification of a small right ilial lumbar branch arising from the right internal iliac artery seems to be extending into the area of Densities which represents acute active bleeding. The adjacent external iliac artery contains a long stent. Sent here for management IMAGING 03/26 urgently taken to IR : a small focus of active extravasation/pseudoaneurysm from a branch of internal iliac artery was treated with a right internal iliac artery coil and Obsidio embolization. No evidence of further bleeding on repeat imaging. Weaned off pressors. Restarted plavix 04/04 and eliquis 04/03. Now on hold since 04/07 for GIB 03/26 CT with Large right retroperitoneal hematoma which measures up to 13.6 x 20.6 x 22.5 cm with a redemonstrated layering contrast blush which overall is similar in size compared to prior. off eliquis/plavix-no plan to restart. Hematoma causing some RLQ abd pain-add PRN oxycodone. Improved with lidoderm patches Assessment & Plan (05/02/2025 11:00 AM CDT): Post procedural bleeding from groin site failed direct pressure control. Early in AM on 03/26 had hypotension, concern for hemorrhagic shock 2/2 RP bleeding. MTP activated, 2 stents placed in R external iliac. In [facility] ICU, persistent shock and high NE, vasopressin requirement despite ongoing transfusions. 03/26 CTA Active hemorrhage occurring in the posterior aspect of the large right iliac fossa hematoma. The opacification of a small right ilial lumbar branch arising from the right internal iliac artery seems to be extending into the area of Densities which represents acute active bleeding. The adjacent external iliac artery contains a long stent. Sent here for management IMAGING 03/26 urgently taken to IR : a small focus of active extravasation/pseudoaneurysm from a branch of internal iliac artery was treated with a right internal iliac artery coil and Obsidio embolization. No evidence of further bleeding on repeat imaging. Weaned off pressors. Restarted plavix 04/04 and eliquis 04/03. Now on hold since 04/07 for GIB 03/26 CT with Large right retroperitoneal hematoma which measures up to 13.6 x 20.6 x 22.5 cm with a redemonstrated layering contrast blush which overall is similar in size compared to prior. off eliquis/plavix-no plan to restart. Hematoma causing some RLQ abd pain-add PRN oxycodone. Improved with lidoderm patches Assessment & Plan (04/30/2025 5:18 PM CDT): Post procedural bleeding from groin site failed direct pressure control. Early in AM on 03/26 had hypotension, concern for hemorrhagic shock 2/2 RP bleeding. MTP activated, 2 stents placed in R external iliac. In ICU, persistent shock and high NE, vasopressin requirement despite ongoing transfusions. 03/26 CTA Active hemorrhage occurring in the posterior aspect of the large right iliac fossa hematoma. The opacification of a small right ilial lumbar branch arising from the right internal iliac artery seems to be extending into the area of Densities which represents acute active bleeding. The adjacent external iliac artery contains a long stent. Sent here for management IMAGING 03/26 urgently taken to IR : a small focus of active extravasation/pseudoaneurysm from a branch of internal iliac artery was treated with a right internal iliac artery coil and Obsidio embolization. No evidence of further bleeding on repeat imaging. Weaned off pressors. Restarted plavix 04/04 and eliquis 04/03. Now on hold since 04/07 for GIB 03/26 CT with Large right retroperitoneal hematoma which measures up to 13.6 x 20.6 x 22.5 cm with a redemonstrated layering contrast blush which overall is similar in size compared to prior. off eliquis/plavix-no plan to restart. Hematoma causing some RLQ abd pain-add PRN oxycodone. Improved with lidoderm patches Assessment & Plan (04/29/2025 10:33 AM CDT): Post procedural bleeding from groin site failed direct pressure control. Early in AM on 03/26 had hypotension, concern for hemorrhagic shock 2/2 RP bleeding. MTP activated, 2 stents placed in R external iliac. In [facility] ICU, persistent shock and high NE, vasopressin requirement despite ongoing transfusions. 03/26 CTA Active hemorrhage occurring in the posterior aspect of the large right iliac fossa hematoma. The opacification of a small right ilial lumbar branch arising from the right internal iliac artery seems to be extending into the area of Densities which represents acute active bleeding. The adjacent external iliac artery contains a long stent. Sent here for management - 03/26 urgently taken to IR : a small focus of active extravasation/pseudoaneurysm from a branch of internal iliac artery was treated with a right internal iliac artery coil and Obsidio embolization. No evidence of further bleeding on repeat imaging. - 03/26 CT with Large right retroperitoneal hematoma which measures up to 13.6 x 20.6 x 22.5 cm with a redemonstrated layering contrast blush which overall is similar in size compared to prior. - Weaned off pressors, monitor hemodynamics, Hgb - Restart plavix 04/04 and eliquis 04/03 and monitor for any sign rebleed-on hold since 04/07 for GIB -off eliquis/plavix-no plan to restart. Hematoma causing some RLQ abd pain-add PRN oxycodone. Improved with lidoderm patches Assessment & Plan (04/28/2025 11:48 AM CDT): Post procedural bleeding from groin site failed direct pressure control. Early in AM on 03/26 had hypotension, concern for hemorrhagic shock 2/2 RP bleeding. MTP activated, 2 stents placed in R external iliac. In [facility] ICU, persistent shock and high NE, vasopressin requirement despite ongoing transfusions. 03/26 CTA Active hemorrhage occurring in the posterior aspect of the large right iliac fossa hematoma. The opacification of a small right ilial lumbar branch arising from the right internal iliac artery seems to be extending into the area of Densities which represents acute active bleeding. The adjacent external iliac artery contains a long stent. Sent here for management - 03/26 urgently taken to IR : a small focus of active extravasation/pseudoaneurysm from a branch of internal iliac artery was treated with a right internal iliac artery coil and Obsidio embolization. No evidence of further bleeding on repeat imaging. - 03/26 CT with Large right retroperitoneal hematoma which measures up to 13.6 x 20.6 x 22.5 cm with a redemonstrated layering contrast blush which overall is similar in size compared to prior. - Weaned off pressors, monitor hemodynamics, Hgb - Restart plavix 04/04 and eliquis 04/03 and monitor for any sign rebleed-on hold since 04/07 for GIB -off eliquis/plavix-no plan to restart. Hematoma causing some RLQ abd pain-add PRN oxycodone. Improved with lidoderm patches Assessment & Plan (04/27/2025 9:58 AM CDT): Post procedural bleeding from groin site failed direct pressure control. Early in AM on 03/26 had hypotension, concern for hemorrhagic shock 2/2 RP bleeding. MTP activated, 2 stents placed in R external iliac. In ICU, persistent shock and high NE, vasopressin requirement despite ongoing transfusions. 03/26 CTA Active hemorrhage occurring in the posterior aspect of the large right iliac fossa hematoma. The opacification of a small right ilial lumbar branch arising from the right internal iliac artery seems to be extending into the area of Densities which represents acute active bleeding. The adjacent external iliac artery contains a long stent. Sent here for management - 03/26 urgently taken to IR : a small focus of active extravasation/pseudoaneurysm from a branch of internal iliac artery was treated with a right internal iliac artery coil and Obsidio embolization. No evidence of further bleeding on repeat imaging. - 03/26 CT with Large right retroperitoneal hematoma which measures up to 13.6 x 20.6 x 22.5 cm with a redemonstrated layering contrast blush which overall is similar in size compared to prior. - Weaned off pressors, monitor hemodynamics, Hgb - Restart plavix 04/04 and eliquis 04/03 and monitor for any sign rebleed-on hold since 04/07 for GIB -off eliquis/plavix-no plan to restart. Hematoma causing some RLQ abd pain-add PRN oxycodone. Improved with lidoderm patches Assessment & Plan (04/26/2025 10:07 AM CDT): Post procedural bleeding from groin site failed direct pressure control. Early in AM on 03/26 had hypotension, concern for hemorrhagic shock 2/2 RP bleeding. MTP activated, 2 stents placed in R external iliac. In [facility], persistent shock and high NE, vasopressin requirement despite ongoing transfusions. 03/26 CTA Active hemorrhage occurring in the posterior aspect of the large right iliac fossa hematoma. The opacification of a small right ilial lumbar branch arising from the right internal iliac artery seems to be extending into the area of Densities which represents acute active bleeding. The adjacent external iliac artery contains a long stent. Sent here for management - 03/26 urgently taken to IR : a small focus of active extravasation/pseudoaneurysm from a branch of internal iliac artery was treated with a right internal iliac artery coil and Obsidio embolization. No evidence of further bleeding on repeat imaging. - 03/26 CT with Large right retroperitoneal hematoma which measures up to 13.6 x 20.6 x 22.5 cm with a redemonstrated layering contrast blush which overall is similar in size compared to prior. - Weaned off pressors, monitor hemodynamics, Hgb - Restart plavix 04/04 and eliquis 04/03 and monitor for any sign rebleed-on hold since 04/07 for GIB -off eliquis/plavix-no plan to restart. Hematoma causing some RLQ abd pain-add PRN oxycodone Assessment & Plan (04/25/2025 10:43 AM CDT): Post procedural bleeding from groin site failed direct pressure control. Early in AM on 03/26 had hypotension, concern for hemorrhagic shock 2/2 RP bleeding. MTP activated, 2 stents placed in R external iliac. In [facility], persistent shock and high NE, vasopressin requirement despite ongoing transfusions. 03/26 CTA Active hemorrhage occurring in the posterior aspect of the large right iliac fossa hematoma. The opacification of a small right ilial lumbar branch arising from the right internal iliac artery seems to be extending into the area of Densities which represents acute active bleeding. The adjacent external iliac artery contains a long stent. Sent here for management - 03/26 urgently taken to IR : a small focus of active extravasation/pseudoaneurysm from a branch of internal iliac artery was treated with a right internal iliac artery coil and Obsidio embolization. No evidence of further bleeding on repeat imaging. - 03/26 CT with Large right retroperitoneal hematoma which measures up to 13.6 x 20.6 x 22.5 cm with a redemonstrated layering contrast blush which overall is similar in size compared to prior. - Weaned off pressors, monitor hemodynamics, Hgb - Restart plavix 04/04 and eliquis 18 and monitor for any sign rebleed-on hold since 04/07 for GIB -off eliquis/plavix-no plan to restart. Hematoma causing some RLQ abd pain Assessment & Plan (04/24/2025 11:01 AM CDT): Post procedural bleeding from groin site failed direct pressure control. Early in AM on 03/26 had hypotension, concern for hemorrhagic shock 2/2 RP bleeding. MTP activated, 2 stents placed in R external iliac. In [facility], persistent shock and high NE, vasopressin requirement despite ongoing transfusions. 03/26 CTA Active hemorrhage occurring in the posterior aspect of the large right iliac fossa hematoma. The opacification of a small right ilial lumbar branch arising from the right internal iliac artery seems to be extending into the area of Densities which represents acute active bleeding. The adjacent external iliac artery contains a long stent. Sent here for management - 03/26 urgently taken to IR : a small focus of active extravasation/pseudoaneurysm from a branch of internal iliac artery was treated with a right internal iliac artery coil and Obsidio embolization. No evidence of further bleeding on repeat imaging. - 03/26 CT with Large right retroperitoneal hematoma which measures up to 13.6 x 20.6 x 22.5 cm with a redemonstrated layering contrast blush which overall is similar in size compared to prior. - Weaned off pressors, monitor hemodynamics, Hgb - Restart plavix 19 and eliquis 04/03 and monitor for any sign rebleed-on hold since 04/07 for GIB Assessment & Plan (04/23/2025 2:21 PM CDT): Post procedural bleeding from groin site failed direct pressure control. Early in AM on 03/26 had hypotension, concern for hemorrhagic shock 2/2 RP bleeding. MTP activated, 2 stents placed in R external iliac. In [facility], persistent shock and high NE, vasopressin requirement despite ongoing transfusions. 03/26 CTA Active hemorrhage occurring in the posterior aspect of the large right iliac fossa hematoma. The opacification of a small right ilial lumbar branch arising from the right internal iliac artery seems to be extending into the area of Densities which represents acute active bleeding. The adjacent external iliac artery contains a long stent. Sent here for management - 03/26 urgently taken to IR : a small focus of active extravasation/pseudoaneurysm from a branch of internal iliac artery was treated with a right internal iliac artery coil and Obsidio embolization. No evidence of further bleeding on repeat imaging. - 03/26 CT with Large right retroperitoneal hematoma which measures up to 13.6 x 20.6 x 22.5 cm with a redemonstrated layering contrast blush which overall is similar in size compared to prior. - Weaned off pressors, monitor hemodynamics, Hgb - Restart plavix 04/04 and eliquis 04/03 and monitor for any sign rebleed-on hold since 04/07 for GIB Assessment & Plan (04/23/2025 6:07 AM CDT): Post procedural bleeding from groin site failed direct pressure control. Early in AM on 03/26 had hypotension, concern for hemorrhagic shock 2/2 RP bleeding. MTP activated, 2 stents placed in R external iliac. In [facility], persistent shock and high NE, vasopressin requirement despite ongoing transfusions. 03/26 CTA Active hemorrhage occurring in the posterior aspect of the large right iliac fossa hematoma. The opacification of a small right ilial lumbar branch arising from the right internal iliac artery seems to be extending into the area of Densities which represents acute active bleeding. The adjacent external iliac artery contains a long stent. Sent here for management - 03/26 urgently taken to IR : a small focus of active extravasation/pseudoaneurysm from a branch of internal iliac artery was treated with a right internal iliac artery coil and Obsidio embolization. No evidence of further bleeding on repeat imaging. - 03/26 CT with Large right retroperitoneal hematoma which measures up to 13.6 x 20.6 x 22.5 cm with a redemonstrated layering contrast blush which overall is similar in size compared to prior. - Weaned off pressors, monitor hemodynamics, Hgb - Restart plavix 04/04 and eliquis 18 and monitor for any sign rebleed-on hold since 04/07 for GIB Assessment & Plan (04/21/2025 9:58 AM CDT): Post procedural bleeding from groin site failed direct pressure control. Early in AM on 03/26 had hypotension, concern for hemorrhagic shock 2/2 RP bleeding. MTP activated, 2 stents placed in R external iliac. In [facility], persistent shock and high NE, vasopressin requirement despite ongoing transfusions. 03/26 CTA Active hemorrhage occurring in the posterior aspect of the large right iliac fossa hematoma. The opacification of a small right ilial lumbar branch arising from the right internal iliac artery seems to be extending into the area of Densities which represents acute active bleeding. The adjacent external iliac artery contains a long stent. Sent here for management - 03/26 urgently taken to IR : a small focus of active extravasation/pseudoaneurysm from a branch of internal iliac artery was treated with a right internal iliac artery coil and Obsidio embolization. No evidence of further bleeding on repeat imaging. - 03/26 CT with Large right retroperitoneal hematoma which measures up to 13.6 x 20.6 x 22.5 cm with a redemonstrated layering contrast blush which overall is similar in size compared to prior. - Weaned off pressors, monitor hemodynamics, Hgb - Restart plavix 04/04 and eliquis 04/03 and monitor for any sign rebleed-on hold since 04/07 for GIB Assessment & Plan (04/20/2025 2:26 PM CDT): Post procedural bleeding from groin site failed direct pressure control. Early in AM on 03/26 had hypotension, concern for hemorrhagic shock 2/2 RP bleeding. MTP activated, 2 stents placed in R external iliac. In [facility], persistent shock and high NE, vasopressin requirement despite ongoing transfusions. 03/26 CTA Active hemorrhage occurring in the posterior aspect of the large right iliac fossa hematoma. The opacification of a small right ilial lumbar branch arising from the right internal iliac artery seems to be extending into the area of Densities which represents acute active bleeding. The adjacent external iliac artery contains a long stent. Sent here for management - 03/26 urgently taken to IR : a small focus of active extravasation/pseudoaneurysm from a branch of internal iliac artery was treated with a right internal iliac artery coil and Obsidio embolization. No evidence of further bleeding on repeat imaging. - 03/26 CT with Large right retroperitoneal hematoma which measures up to 13.6 x 20.6 x 22.5 cm with a redemonstrated layering contrast blush which overall is similar in size compared to prior. - Weaned off pressors, monitor hemodynamics, Hgb - Restart plavix 04/04 and eliquis 04/03 and monitor for any sign rebleed-on hold since 04/07 for GIB Assessment & Plan (04/19/2025 12:35 PM CDT): Post procedural bleeding from groin site failed direct pressure control. Early in AM on 03/26 had hypotension, concern for hemorrhagic shock 2/2 RP bleeding. MTP activated, 2 stents placed in R external iliac. In ICU, persistent shock and high NE, vasopressin requirement despite ongoing transfusions. 03/26 CTA Active hemorrhage occurring in the posterior aspect of the large right iliac fossa hematoma. The opacification of a small right ilial lumbar branch arising from the right internal iliac artery seems to be extending into the area of Densities which represents acute active bleeding. The adjacent external iliac artery contains a long stent. Sent here for management - 03/26 urgently taken to IR : a small focus of active extravasation/pseudoaneurysm from a branch of internal iliac artery was treated with a right internal iliac artery coil and Obsidio embolization. No evidence of further bleeding on repeat imaging. - 03/26 CT with Large right retroperitoneal hematoma which measures up to 13.6 x 20.6 x 22.5 cm with a redemonstrated layering contrast blush which overall is similar in size compared to prior. - Weaned off pressors, monitor hemodynamics, Hgb - Restart plavix 04/04 and eliquis 04/03 and monitor for any sign rebleed-on hold since 04/07 for GIB Assessment & Plan (04/18/2025 7:47 PM CDT): Post procedural bleeding from groin site failed direct pressure control. Early in AM on 03/26 had hypotension, concern for hemorrhagic shock 2/2 RP bleeding. MTP activated, 2 stents placed in R external iliac. In [facility], persistent shock and high NE, vasopressin requirement despite ongoing transfusions. / CTA Active hemorrhage occurring in the posterior aspect of the large right iliac fossa hematoma. The opacification of a small right ilial lumbar branch arising from the right internal iliac artery seems to be extending into the area of Densities which represents acute active bleeding. The adjacent external iliac artery contains a long stent. Sent here for management - 03/26 urgently taken to IR : a small focus of active extravasation/pseudoaneurysm from a branch of internal iliac artery was treated with a right internal iliac artery coil and Obsidio embolization. No evidence of further bleeding on repeat imaging. - 03/26 CT with Large right retroperitoneal hematoma which measures up to 13.6 x 20.6 x 22.5 cm with a redemonstrated layering contrast blush which overall is similar in size compared to prior. - Weaned off pressors, monitor hemodynamics, Hgb - Restart plavix 04/04 and eliquis 04/03 and monitor for any sign rebleed-on hold since 04/07 for GIB Assessment & Plan (04/18/2025 12:22 AM CDT): Post procedural bleeding from groin site failed direct pressure control. Early in AM on 03/26 had hypotension, concern for hemorrhagic shock 2/2 RP bleeding. MTP activated, 2 stents placed in R external iliac. In [facility], persistent shock and high NE, vasopressin requirement despite ongoing transfusions. 03/26 CTA Active hemorrhage occurring in the posterior aspect of the large right iliac fossa hematoma. The opacification of a small right ilial lumbar branch arising from the right internal iliac artery seems to be extending into the area of Densities which represents acute active bleeding. The adjacent external iliac artery contains a long stent. Sent here for management - 03/26 urgently taken to IR : a small focus of active extravasation/pseudoaneurysm from a branch of internal iliac artery was treated with a right internal iliac artery coil and Obsidio embolization. No evidence of further bleeding on repeat imaging. - 03/26 CT with Large right retroperitoneal hematoma which measures up to 13.6 x 20.6 x 22.5 cm with a redemonstrated layering contrast blush which overall is similar in size compared to prior. - Weaned off pressors, monitor hemodynamics, Hgb - Restart plavix 04/04 and eliquis /18 and monitor for any sign rebleed-on hold 04/07 for GIB Assessment & Plan (04/16/2025 1:42 PM CDT): Post procedural bleeding from groin site failed direct pressure control. Early in AM on 03/26 had hypotension, concern for hemorrhagic shock 2/2 RP bleeding. MTP activated, 2 stents placed in R external iliac. In [facility], persistent shock and high NE, vasopressin requirement despite ongoing transfusions. 03/26 CTA Active hemorrhage occurring in the posterior aspect of the large right iliac fossa hematoma. The opacification of a small right ilial lumbar branch arising from the right internal iliac artery seems to be extending into the area of Densities which represents acute active bleeding. The adjacent external iliac artery contains a long stent. Sent here for management - 03/26 urgently taken to IR on where there was a small focus of active extravasation/pseudoaneurysm from a branch of internal iliac artery which was treated with a right internal iliac artery coil and Obsidio embolization. No evidence of further bleeding on repeat imaging. - 03/26 CT with Large right retroperitoneal hematoma which measures up to 13.6 x 20.6 x 22.5 cm with a redemonstrated layering contrast blush which overall is similar in size compared to prior. - Weaned off pressors, monitor hemodynamics, Hgb - Restart plavix 04/04 and eliquis 18 and monitor for any sign rebleed-on hold 04/07 for GIB Assessment & Plan (04/15/2025 8:16 AM CDT): Post procedural bleeding from groin site failed direct pressure control. Early in AM on 03/26 had hypotension, concern for hemorrhagic shock 2/2 RP bleeding. MTP activated, 2 stents placed in R external iliac. In [facility], persistent shock and high NE, vasopressin requirement despite ongoing transfusions. 03/26 CTA Active hemorrhage occurring in the posterior aspect of the large right iliac fossa hematoma. The opacification of a small right ilial lumbar branch arising from the right internal iliac artery seems to be extending into the area of Densities which represents acute active bleeding. The adjacent external iliac artery contains a long stent. Sent here for management - 03/26 urgently taken to IR on where there was a small focus of active extravasation/pseudoaneurysm from a branch of internal iliac artery which was treated with a right internal iliac artery coil and Obsidio embolization. No evidence of further bleeding on repeat imaging. - 03/26 CT with Large right retroperitoneal hematoma which measures up to 13.6 x 20.6 x 22.5 cm with a redemonstrated layering contrast blush which overall is similar in size compared to prior. - Weaned off pressors, monitor hemodynamics, Hgb - Restart plavix 04/04 and eliquis 6/18 and monitor for any sign rebleed-on hold 04/07 for GIB Assessment & Plan (04/14/2025 8:46 AM CDT): Post procedural bleeding from groin site failed direct pressure control. Early in AM on 03/26 had hypotension, concern for hemorrhagic shock 2/2 RP bleeding. MTP activated, 2 stents placed in R external iliac. In ICU, persistent shock and high NE, vasopressin requirement despite ongoing transfusions. 03/26 CTA Active hemorrhage occurring in the posterior aspect of the large right iliac fossa hematoma. The opacification of a small right ilial lumbar branch arising from the right internal iliac artery seems to be extending into the area of Densities which represents acute active bleeding. The adjacent external iliac artery contains a long stent. Sent here for management - 03/26 urgently taken to IR on where there was a small focus of active extravasation/pseudoaneurysm from a branch of internal iliac artery which was treated with a right internal iliac artery coil and Obsidio embolization. No evidence of further bleeding on repeat imaging. - 03/26 CT with Large right retroperitoneal hematoma which measures up to 13.6 x 20.6 x 22.5 cm with a redemonstrated layering contrast blush which overall is similar in size compared to prior. - Weaned off pressors, monitor hemodynamics, Hgb - Restart plavix 04/04 and eliquis 6/18 and monitor for any sign rebleed-on hold 04/07 for GIB Assessment & Plan (04/13/2025 9:00 AM CDT): Post procedural bleeding from groin site failed direct pressure control. Early in AM on 03/26 had hypotension, concern for hemorrhagic shock 2/2 RP bleeding. MTP activated, 2 stents placed in R external iliac. In [facility], persistent shock and high NE, vasopressin requirement despite ongoing transfusions. / CTA Active hemorrhage occurring in the posterior aspect of the large right iliac fossa hematoma. The opacification of a small right ilial lumbar branch arising from the right internal iliac artery seems to be extending into the area of Densities which represents acute active bleeding. The adjacent external iliac artery contains a long stent. Sent here for management - 03/26 urgently taken to IR on where there was a small focus of active extravasation/pseudoaneurysm from a branch of internal iliac artery which was treated with a right internal iliac artery coil and Obsidio embolization. No evidence of further bleeding on repeat imaging. - 03/26 CT with Large right retroperitoneal hematoma which measures up to 13.6 x 20.6 x 22.5 cm with a redemonstrated layering contrast blush which overall is similar in size compared to prior. - Weaned off pressors, monitor hemodynamics, Hgb - Restart plavix 04/04 and eliquis 04/03 and monitor for any sign rebleed-on hold 04/07 for GIB Assessment & Plan (04/12/2025 12:46 PM CDT): Post procedural bleeding from groin site failed direct pressure control. Early in AM on 03/26 had hypotension, concern for hemorrhagic shock 2/2 RP bleeding. MTP activated, 2 stents placed in R external iliac. In [facility], persistent shock and high NE, vasopressin requirement despite ongoing transfusions. 03/26 CTA Active hemorrhage occurring in the posterior aspect of the large right iliac fossa hematoma. The opacification of a small right ilial lumbar branch arising from the right internal iliac artery seems to be extending into the area of Densities which represents acute active bleeding. The adjacent external iliac artery contains a long stent. Sent here for management - 03/26 urgently taken to IR on where there was a small focus of active extravasation/pseudoaneurysm from a branch of internal iliac artery which was treated with a right internal iliac artery coil and Obsidio embolization. No evidence of further bleeding on repeat imaging. - 03/26 CT with Large right retroperitoneal hematoma which measures up to 13.6 x 20.6 x 22.5 cm with a redemonstrated layering contrast blush which overall is similar in size compared to prior. - Weaned off pressors, monitor hemodynamics, Hgb - Restart plavix 19 and eliquis 18 and monitor for any sign rebleed-on hold 04/07 for GIB Assessment & Plan (04/11/2025 11:36 AM CDT): Post procedural bleeding from groin site failed direct pressure control. Early in AM on 03/26 had hypotension, concern for hemorrhagic shock 2/2 RP bleeding. MTP activated, 2 stents placed in R external iliac. In [facility], persistent shock and high NE, vasopressin requirement despite ongoing transfusions. 03/26 CTA Active hemorrhage occurring in the posterior aspect of the large right iliac fossa hematoma. The opacification of a small right ilial lumbar branch arising from the right internal iliac artery seems to be extending into the area of Densities which represents acute active bleeding. The adjacent external iliac artery contains a long stent. Sent here for management - 03/26 urgently taken to IR on where there was a small focus of active extravasation/pseudoaneurysm from a branch of internal iliac artery which was treated with a right internal iliac artery coil and Obsidio embolization. No evidence of further bleeding on repeat imaging. - 03/26 CT with Large right retroperitoneal hematoma which measures up to 13.6 x 20.6 x 22.5 cm with a redemonstrated layering contrast blush which overall is similar in size compared to prior. - Weaned off pressors, monitor hemodynamics, Hgb - Restart plavix 04/04 and eliquis 18 and monitor for any sign rebleed-on hold 04/07 for GIB Assessment & Plan (04/10/2025 4:18 PM CDT): Post procedural bleeding from groin site failed direct pressure control. Early in AM on 03/26 had hypotension, concern for hemorrhagic shock 2/2 RP bleeding. MTP activated, 2 stents placed in R external iliac. In [facility], persistent shock and high NE, vasopressin requirement despite ongoing transfusions. 03/26 CTA Active hemorrhage occurring in the posterior aspect of the large right iliac fossa hematoma. The opacification of a small right ilial lumbar branch arising from the right internal iliac artery seems to be extending into the area of Densities which represents acute active bleeding. The adjacent external iliac artery contains a long stent. Sent here for management - 03/26 urgently taken to IR on where there was a small focus of active extravasation/pseudoaneurysm from a branch of internal iliac artery which was treated with a right internal iliac artery coil and Obsidio embolization. No evidence of further bleeding on repeat imaging. - 03/26 CT with Large right retroperitoneal hematoma which measures up to 13.6 x 20.6 x 22.5 cm with a redemonstrated layering contrast blush which overall is similar in size compared to prior. - Weaned off pressors, monitor hemodynamics, Hgb - Restart plavix 04/04 and eliquis 04/03 and monitor for any sign rebleed-on hold 04/07 for GIB Assessment & Plan (04/09/2025 12:20 PM CDT): Post procedural bleeding from groin site failed direct pressure control. Early in AM on 03/26 had hypotension, concern for hemorrhagic shock 2/2 RP bleeding. MTP activated, 2 stents placed in R external iliac. In ICU, persistent shock and high NE, vasopressin requirement despite ongoing transfusions. 03/26 CTA Active hemorrhage occurring in the posterior aspect of the large right iliac fossa hematoma. The opacification of a small right ilial lumbar branch arising from the right internal iliac artery seems to be extending into the area of Densities which represents acute active bleeding. The adjacent external iliac artery contains a long stent. Sent here for management - 03/26 urgently taken to IR on where there was a small focus of active extravasation/pseudoaneurysm from a branch of internal iliac artery which was treated with a right internal iliac artery coil and Obsidio embolization. No evidence of further bleeding on repeat imaging. - 03/26 CT with Large right retroperitoneal hematoma which measures up to 13.6 x 20.6 x 22.5 cm with a redemonstrated layering contrast blush which overall is similar in size compared to prior. - Weaned off pressors, monitor hemodynamics, Hgb - Restart plavix 04/04 and eliquis 18 and monitor for any sign rebleed-on hold 04/07 for GIB Assessment & Plan (04/08/2025 12:13 PM CDT): Post procedural bleeding from groin site failed direct pressure control. Early in AM on 03/26 had hypotension, concern for hemorrhagic shock 2/2 RP bleeding. MTP activated, 2 stents placed in R external iliac. In [facility], persistent shock and high NE, vasopressin requirement despite ongoing transfusions. / CTA Active hemorrhage occurring in the posterior aspect of the large right iliac fossa hematoma. The opacification of a small right ilial lumbar branch arising from the right internal iliac artery seems to be extending into the area of Densities which represents acute active bleeding. The adjacent external iliac artery contains a long stent. Sent here for management - 03/26 urgently taken to IR on where there was a small focus of active extravasation/pseudoaneurysm from a branch of internal iliac artery which was treated with a right internal iliac artery coil and Obsidio embolization. No evidence of further bleeding on repeat imaging. - 03/26 CT with Large right retroperitoneal hematoma which measures up to 13.6 x 20.6 x 22.5 cm with a redemonstrated layering contrast blush which overall is similar in size compared to prior. - Weaned off pressors, monitor hemodynamics, Hgb - restart plavix 04/04 and eliquis 04/03 and monitor for any sign rebleed-on hold 04/07 for GIB Assessment & Plan (04/07/2025 11:34 AM CDT): Post procedural bleeding from groin site failed direct pressure control. Early in AM on 03/26 had hypotension, concern for hemorrhagic shock 2/2 RP bleeding. MTP activated, 2 stents placed in R external iliac. In [facility], persistent shock and high NE, vasopressin requirement despite ongoing transfusions. 03/26 CTA Active hemorrhage occurring in the posterior aspect of the large right iliac fossa hematoma. The opacification of a small right ilial lumbar branch arising from the right internal iliac artery seems to be extending into the area of Densities which represents acute active bleeding. The adjacent external iliac artery contains a long stent. Sent here for management - 03/26 urgently taken to IR on where there was a small focus of active extravasation/pseudoaneurysm from a branch of internal iliac artery which was treated with a right internal iliac artery coil and Obsidio embolization. No evidence of further bleeding on repeat imaging. - 03/26 CT with Large right retroperitoneal hematoma which measures up to 13.6 x 20.6 x 22.5 cm with a redemonstrated layering contrast blush which overall is similar in size compared to prior. - Weaned off pressors, monitor hemodynamics, Hgb - restart plavix 19 and eliquis /18 and monitor for any sign rebleed Assessment & Plan (04/06/2025 10:54 AM CDT): Post procedural bleeding from groin site failed direct pressure control. Early in AM on 03/26 had hypotension, concern for hemorrhagic shock 2/2 RP bleeding. MTP activated, 2 stents placed in R external iliac. In [facility], persistent shock and high NE, vasopressin requirement despite ongoing transfusions. 03/26 CTA Active hemorrhage occurring in the posterior aspect of the large right iliac fossa hematoma. The opacification of a small right ilial lumbar branch arising from the right internal iliac artery seems to be extending into the area of Densities which represents acute active bleeding. The adjacent external iliac artery contains a long stent. Sent here for management - 03/26 urgently taken to IR on where there was a small focus of active extravasation/pseudoaneurysm from a branch of internal iliac artery which was treated with a right internal iliac artery coil and Obsidio embolization. No evidence of further bleeding on repeat imaging. - 03/26 CT with Large right retroperitoneal hematoma which measures up to 13.6 x 20.6 x 22.5 cm with a redemonstrated layering contrast blush which overall is similar in size compared to prior. - Weaned off pressors, monitor hemodynamics, Hgb - restart plavix 19 and eliquis /18 and monitor for any sign rebleed Assessment & Plan (04/05/2025 12:28 PM CDT): Post procedural bleeding from groin site failed direct pressure control. Early in AM on 03/26 had hypotension, concern for hemorrhagic shock 2/2 RP bleeding. MTP activated, 2 stents placed in R external iliac. In [facility], persistent shock and high NE, vasopressin requirement despite ongoing transfusions. 03/26 CTA Active hemorrhage occurring in the posterior aspect of the large right iliac fossa hematoma. The opacification of a small right ilial lumbar branch arising from the right internal iliac artery seems to be extending into the area of Densities which represents acute active bleeding. The adjacent external iliac artery contains a long stent. Sent here for management - 03/26 urgently taken to IR on where there was a small focus of active extravasation/pseudoaneurysm from a branch of internal iliac artery which was treated with a right internal iliac artery coil and Obsidio embolization. No evidence of further bleeding on repeat imaging. - 03/26 CT with Large right retroperitoneal hematoma which measures up to 13.6 x 20.6 x 22.5 cm with a redemonstrated layering contrast blush which overall is similar in size compared to prior. - Weaned off pressors, monitor hemodynamics, Hgb - restart plavix 04/04 and eliquis 04/03 and monitor for any sign rebleed Assessment & Plan (04/04/2025 11:26 AM CDT): Post procedural bleeding from groin site failed direct pressure control. Early in AM on 03/26 had hypotension, concern for hemorrhagic shock 2/2 RP bleeding. MTP activated, 2 stents placed in R external iliac. In ICU, persistent shock and high NE, vasopressin requirement despite ongoing transfusions. 03/26 CTA Active hemorrhage occurring in the posterior aspect of the large right iliac fossa hematoma. The opacification of a small right ilial lumbar branch arising from the right internal iliac artery seems to be extending into the area of Densities which represents acute active bleeding. The adjacent external iliac artery contains a long stent. Sent here for management - 03/26 urgently taken to IR on where there was a small focus of active extravasation/pseudoaneurysm from a branch of internal iliac artery which was treated with a right internal iliac artery coil and Obsidio embolization. No evidence of further bleeding on repeat imaging. - 03/26 CT with Large right retroperitoneal hematoma which measures up to 13.6 x 20.6 x 22.5 cm with a redemonstrated layering contrast blush which overall is similar in size compared to prior. - Weaned off pressors, monitor hemodynamics, Hgb - restart plavix 04/04 and eliquis 04/03 and monitor for any sign rebleed Assessment & Plan (04/03/2025 11:53 AM CDT): Post procedural bleeding from groin site failed direct pressure control. Early in AM on 03/26 had hypotension, concern for hemorrhagic shock 2/2 RP bleeding. MTP activated, 2 stents placed in R external iliac. In [facility], persistent shock and high NE, vasopressin requirement despite ongoing transfusions. / CTA Active hemorrhage occurring in the posterior aspect of the large right iliac fossa hematoma. The opacification of a small right ilial lumbar branch arising from the right internal iliac artery seems to be extending into the area of Densities which represents acute active bleeding. The adjacent external iliac artery contains a long stent. Sent here for management - 03/26 urgently taken to IR on where there was a small focus of active extravasation/pseudoaneurysm from a branch of internal iliac artery which was treated with a right internal iliac artery coil and Obsidio embolization. No evidence of further bleeding on repeat imaging. - 03/26 CT with Large right retroperitoneal hematoma which measures up to 13.6 x 20.6 x 22.5 cm with a redemonstrated layering contrast blush which overall is similar in size compared to prior. - Weaned off pressors, monitor hemodynamics - Daily [id number] as restart anticoag Assessment & Plan (04/02/2025 10:42 AM CDT): Post procedural bleeding from groin site failed direct pressure control. Early in AM on 03/26 had hypotension, concern for hemorrhagic shock 2/2 RP bleeding. MTP activated, 2 stents placed in R external iliac. In [facility], persistent shock and high NE, vasopressin requirement despite ongoing transfusions. 03/26 CTA Active hemorrhage occurring in the posterior aspect of the large right iliac fossa hematoma. The opacification of a small right ilial lumbar branch arising from the right internal iliac artery seems to be extending into the area of Densities which represents acute active bleeding. The adjacent external iliac artery contains a long stent. Sent here for management - 03/26 urgently taken to IR on where there was a small focus of active extravasation/pseudoaneurysm from a branch of internal iliac artery which was treated with a right internal iliac artery coil and Obsidio embolization. No evidence of further bleeding on repeat imaging. - 03/26 CT with Large right retroperitoneal hematoma which measures up to 13.6 x 20.6 x 22.5 cm with a redemonstrated layering contrast blush which overall is similar in size compared to prior. - Weaned off pressors, monitor hemodynamics - Daily CBC-monitor Assessment & Plan (04/01/2025 7:24 AM CDT): Post procedural bleeding from groin site failed direct pressure control. Early in AM on 03/26 had hypotension, concern for hemorrhagic shock 2/2 RP bleeding. MTP activated, 2 stents placed in R external iliac. In [facility], persistent shock and high NE, vasopressin requirement despite ongoing transfusions. 03/26 CTA Active hemorrhage occurring in the posterior aspect of the large right iliac fossa hematoma. The opacification of a small right ilial lumbar branch arising from the right internal iliac artery seems to be extending into the area of Densities which represents acute active bleeding. The adjacent external iliac artery contains a long stent. Sent here for management - 03/26 urgently taken to IR on where there was a small focus of active extravasation/pseudoaneurysm from a branch of internal iliac artery which was treated with a right internal iliac artery coil and Obsidio embolization. No evidence of further bleeding on repeat imaging. - 03/26 CT with Large right retroperitoneal hematoma which measures up to 13.6 x 20.6 x 22.5 cm with a redemonstrated layering contrast blush which overall is similar in size compared to prior. - Weaned off pressors, monitor hemodynamics - Daily CBC Assessment & Plan (03/31/2025 2:26 PM CDT): Post procedural bleeding from groin site failed direct pressure control. Early in AM on 03/26 had hypotension, concern for hemorrhagic shock 2/2 RP bleeding. MTP activated, 2 stents placed in R external iliac. In [facility], persistent shock and high NE, vasopressin requirement despite ongoing transfusions. 03/26 CTA Active hemorrhage occurring in the posterior aspect of the large right iliac fossa hematoma. The opacification of a small right ilial lumbar branch arising from the right internal iliac artery seems to be extending into the area of Densities which represents acute active bleeding. The adjacent external iliac artery contains a long stent. Sent here for management - 03/26 urgently taken to IR on where there was a small focus of active extravasation/pseudoaneurysm from a branch of internal iliac artery which was treated with a right internal iliac artery coil and Obsidio embolization. No evidence of further bleeding on repeat imaging. - 03/26 CT with Large right retroperitoneal hematoma which measures up to 13.6 x 20.6 x 22.5 cm with a redemonstrated layering contrast blush which overall is similar in size compared to prior. - Weaned off pressors, monitor hemodynamics - Daily CBC Pneumothorax 03/27/2025 05/05/2025 Assessment & Plan (05/05/2025 3:50 PM CDT): IMPROVING Acute respiratory failure multifactorial. Now off oxygen Baseline Asthma and ERIKA on CPAP. Post shock/PEA arrest requiring intubation 03/26-03/30 c/b pneumonia bilateral pneumothorax. 2/2 compressions after PEA arrest 03/27 s/p placement of bilateral chest tubes - chest tubes removed 04/02 & F/U Chest x-ray stable Chest tube management-now Dc'd 05/02 Increased diuretics from 40 lasix po BID to 40 IV BID 05/02 Bilateral pleural effusions on x-ray 05/01 and new oxygen requirement 05/02. 1.3 L out, goal 1.5-2 L but overall +220ml. Repeat chest x-ray decreased effusions. Restricting fluids to <1.5L. 05/03 Urine output 950 documented but blood pressure stable with diuresis, improving. Follow electrolytes, replaced mag and potassium as needed 05/04 Increased Lasix from 40 BID to 60 BID IV 05/05 Lasix 80mg PO BID PLAN - Home inhalers: Breo in place of Dulera (not in formulary), continue scheduled albuterol nebs - Resume home [id number] adherent to treatment - IS --Follow up CXR in AM, lung sounds decreased on the RLL --Follow up CT if new symptoms Assessment & Plan (05/04/2025 10:31 AM CDT): 2/2 compressions after PEA arrest 03/27 s/p placement of bilateral chest tubes - chest tubes removed 04/02 & F/U Chest x-ray stable --Follow up CXR in AM, lung sounds decreased on the RLL Assessment & Plan (05/03/2025 1:22 PM CDT): 2/2 compressions after PEA arrest 03/27 s/p placement of bilateral chest tubes - chest tubes removed 04/02 & F/U Chest x-ray stable --Follow up CXR in AM, lung sounds decreased on the RLL Assessment & Plan (05/02/2025 11:00 AM CDT): 2/2 compressions after PEA arrest 03/27 s/p placement of bilateral chest tubes - chest tubes removed 04/02 & F/U Chest x-ray stable --Follow up CXR in AM, lung sounds decreased on the RLL Assessment & Plan (04/30/2025 5:18 PM CDT): 2/2 compressions after PEA arrest 03/27 s/p placement of bilateral chest tubes - chest tubes removed 04/02 & F/U Chest x-ray stable --Follow up CXR in AM, lung sounds decreased on the RLL Assessment & Plan (04/29/2025 10:33 AM CDT): 2/2 compressions after PEA arrest 03/27 s/p placement of bilateral chest tubes - chest tubes to water seal per surgery - daily chest xrays, 03/31 CXR: Bilateral chest tubes. Heart and mediastinum are unchanged status post transcatheter aortic valve replacement. There are small bilateral pleural effusions. Bibasilar lung opacities, likely partial atelectasis. No pneumothorax seen. - Thoracic surgery managing - Water seal since 03/28, stable without air leak, CXR stable - d/w surgery, trial clamp, repeat CXR in 4 hrs (1200)-if stable plan to DC CT's 04/02 - CT's DC'd 04/02 and f/u CXR stable - coughing overnight-check CXR-unchanged, return to home albuterol nebs per pt request Chest Xray on 04-15 no PTX Assessment & Plan (04/28/2025 11:48 AM CDT): 2/2 compressions after PEA arrest 03/27 s/p placement of bilateral chest tubes - chest tubes to water seal per surgery - daily chest xrays, 03/31 CXR: Bilateral chest tubes. Heart and mediastinum are unchanged status post transcatheter aortic valve replacement. There are small bilateral pleural effusions. Bibasilar lung opacities, likely partial atelectasis. No pneumothorax seen. - Thoracic surgery managing - Water seal since 03/28, stable without air leak, CXR stable - d/w surgery, trial clamp, repeat CXR in 4 hrs (1200)-if stable plan to DC CT's 04/02 - CT's DC'd 04/02 and f/u CXR stable - coughing overnight-check CXR-unchanged, return to home albuterol nebs per pt request Chest Xray on - no PTX Assessment & Plan (04/27/2025 9:58 AM CDT): 2/2 compressions after PEA arrest 03/27 s/p placement of bilateral chest tubes - chest tubes to water seal per surgery - daily chest xrays, 03/31 CXR: Bilateral chest tubes. Heart and mediastinum are unchanged status post transcatheter aortic valve replacement. There are small bilateral pleural effusions. Bibasilar lung opacities, likely partial atelectasis. No pneumothorax seen. - Thoracic surgery managing - Water seal since 03/28, stable without air leak, CXR stable - d/w surgery, trial clamp, repeat CXR in 4 hrs (1200)-if stable plan to DC CT's 04/02 - CT's DC'd 04/02 and f/u CXR stable - coughing overnight-check CXR-unchanged, return to home albuterol nebs per pt request Chest Xray on 04-15 no PTX Assessment & Plan (04/26/2025 10:07 AM CDT): 2/2 compressions after PEA arrest 03/27 s/p placement of bilateral chest tubes - chest tubes to water seal per surgery - daily chest xrays, 03/31 CXR: Bilateral chest tubes. Heart and mediastinum are unchanged status post transcatheter aortic valve replacement. There are small bilateral pleural effusions. Bibasilar lung opacities, likely partial atelectasis. No pneumothorax seen. - Thoracic surgery managing - Water seal since 03/28, stable without air leak, CXR stable - d/w surgery, trial clamp, repeat CXR in 4 hrs (1200)-if stable plan to DC CT's 04/02 - CT's DC'd 04/02 and f/u CXR stable - coughing overnight-check CXR-unchanged, return to home albuterol nebs per pt request Chest Xray on 04-15 no PTX Assessment & Plan (04/25/2025 10:43 AM CDT): 2/2 compressions after PEA arrest 03/27 s/p placement of bilateral chest tubes - chest tubes to water seal per surgery - daily chest xrays, 03/31 CXR: Bilateral chest tubes. Heart and mediastinum are unchanged status post transcatheter aortic valve replacement. There are small bilateral pleural effusions. Bibasilar lung opacities, likely partial atelectasis. No pneumothorax seen. - Thoracic surgery managing - Water seal since 03/28, stable without air leak, CXR stable - d/w surgery, trial clamp, repeat CXR in 4 hrs (1200)-if stable plan to DC CT's 04/02 - CT's DC'd 04/02 and f/u CXR stable - coughing overnight-check CXR-unchanged, return to home albuterol nebs per pt request Chest Xray on 04-15 no PTX Assessment & Plan (04/24/2025 11:01 AM CDT): 2/2 compressions after PEA arrest 03/27 s/p placement of bilateral chest tubes - chest tubes to water seal per surgery - daily chest xrays, 03/31 CXR: Bilateral chest tubes. Heart and mediastinum are unchanged status post transcatheter aortic valve replacement. There are small bilateral pleural effusions. Bibasilar lung opacities, likely partial atelectasis. No pneumothorax seen. - Thoracic surgery managing - Water seal since 03/28, stable without air leak, CXR stable - d/w surgery, trial clamp, repeat CXR in 4 hrs (1200)-if stable plan to DC CT's 04/02 - CT's DC'd 04/02 and f/u CXR stable - coughing overnight-check CXR-unchanged, return to home albuterol nebs per pt request Chest Xray on 04-15 no PTX Assessment & Plan (04/23/2025 2:21 PM CDT): 2/2 compressions after PEA arrest 03/27 s/p placement of bilateral chest tubes - chest tubes to water seal per surgery - daily chest xrays, 03/31 CXR: Bilateral chest tubes. Heart and mediastinum are unchanged status post transcatheter aortic valve replacement. There are small bilateral pleural effusions. Bibasilar lung opacities, likely partial atelectasis. No pneumothorax seen. - Thoracic surgery managing - Water seal since 03/28, stable without air leak, CXR stable - d/w surgery, trial clamp, repeat CXR in 4 hrs (1200)-if stable plan to DC CT's 04/02 - CT's DC'd 04/02 and f/u CXR stable - coughing overnight-check CXR-unchanged, return to home albuterol nebs per pt request Chest Xray on 04-15 no PTX Assessment & Plan (04/23/2025 6:07 AM CDT): 2/2 compressions after PEA arrest 03/27 s/p placement of bilateral chest tubes - chest tubes to water seal per surgery - daily chest xrays, 03/31 CXR: Bilateral chest tubes. Heart and mediastinum are unchanged status post transcatheter aortic valve replacement. There are small bilateral pleural effusions. Bibasilar lung opacities, likely partial atelectasis. No pneumothorax seen. - Thoracic surgery managing - Water seal since 03/28, stable without air leak, CXR stable - d/w surgery, trial clamp, repeat CXR in 4 hrs (1200)-if stable plan to DC CT's 04/02 - CT's DC'd 04/02 and f/u CXR stable - coughing overnight-check CXR-unchanged, return to home albuterol nebs per pt request Chest Xray on 04-15 no PTX Assessment & Plan (04/21/2025 9:58 AM CDT): 2/2 compressions after PEA arrest 03/27 s/p placement of bilateral chest tubes - chest tubes to water seal per surgery - daily chest xrays, 03/31 CXR: Bilateral chest tubes. Heart and mediastinum are unchanged status post transcatheter aortic valve replacement. There are small bilateral pleural effusions. Bibasilar lung opacities, likely partial atelectasis. No pneumothorax seen. - Thoracic surgery managing - Water seal since 03/28, stable without air leak, CXR stable - d/w surgery, trial clamp, repeat CXR in 4 hrs (1200)-if stable plan to DC CT's 04/02 - CT's DC'd 04/02 and f/u CXR stable - coughing overnight-check CXR-unchanged, return to home albuterol nebs per pt request Chest Xray on 04-15 no PTX Assessment & Plan (04/20/2025 2:26 PM CDT): 2/2 compressions after PEA arrest 03/27 s/p placement of bilateral chest tubes - chest tubes to water seal per surgery - daily chest xrays, 03/31 CXR: Bilateral chest tubes. Heart and mediastinum are unchanged status post transcatheter aortic valve replacement. There are small bilateral pleural effusions. Bibasilar lung opacities, likely partial atelectasis. No pneumothorax seen. - Thoracic surgery managing - Water seal since 03/28, stable without air leak, CXR stable - d/w surgery, trial clamp, repeat CXR in 4 hrs (1200)-if stable plan to DC CT's 04/02 - CT's DC'd 04/02 and f/u CXR stable - coughing overnight-check CXR-unchanged, return to home albuterol nebs per pt request Chest Xray on 04-15 no PTX Assessment & Plan (04/19/2025 12:35 PM CDT): 2/2 compressions after PEA arrest 03/27 s/p placement of bilateral chest tubes - chest tubes to water seal per surgery - daily chest xrays, 03/31 CXR: Bilateral chest tubes. Heart and mediastinum are unchanged status post transcatheter aortic valve replacement. There are small bilateral pleural effusions. Bibasilar lung opacities, likely partial atelectasis. No pneumothorax seen. - Thoracic surgery managing - Water seal since 03/28, stable without air leak, CXR stable - d/w surgery, trial clamp, repeat CXR in 4 hrs (1200)-if stable plan to DC CT's 04/02 - CT's DC'd 04/02 and f/u CXR stable - coughing overnight-check CXR-unchanged, return to home albuterol nebs per pt request Chest Xray on 04-15 no PTX Assessment & Plan (04/18/2025 7:47 PM CDT): 2/2 compressions after PEA arrest 03/27 s/p placement of bilateral chest tubes - chest tubes to water seal per surgery - daily chest xrays, 03/31 CXR: Bilateral chest tubes. Heart and mediastinum are unchanged status post transcatheter aortic valve replacement. There are small bilateral pleural effusions. Bibasilar lung opacities, likely partial atelectasis. No pneumothorax seen. - Thoracic surgery managing - Water seal since 03/28, stable without air leak, CXR stable - d/w surgery, trial clamp, repeat CXR in 4 hrs (1200)-if stable plan to DC CT's 04/02 - CT's DC'd 04/02 and f/u CXR stable - coughing overnight-check CXR-unchanged, return to home albuterol nebs per pt request Chest Xray on 04-15 no PTX Assessment & Plan (04/17/2025 4:37 PM CDT): 2/2 compressions after PEA arrest 03/27 s/p placement of bilateral chest tubes - chest tubes to water seal per surgery - daily chest xrays, 03/31 CXR: Bilateral chest tubes. Heart and mediastinum are unchanged status post transcatheter aortic valve replacement. There are small bilateral pleural effusions. Bibasilar lung opacities, likely partial atelectasis. No pneumothorax seen. - Thoracic surgery managing - Water seal since 03/28, stable without air leak, CXR stable - d/w surgery, trial clamp, repeat CXR in 4 hrs (1200)-if stable plan to DC CT's 04/02 - CT's DC'd 04/02 and f/u CXR stable - coughing overnight-check CXR-unchanged, return to home albuterol nebs per pt request Assessment & Plan (04/16/2025 1:42 PM CDT): 2/2 compressions after PEA arrest 03/27 s/p placement of bilateral chest tubes - chest tubes to water seal per surgery - daily chest xrays, 03/31 CXR: Bilateral chest tubes. Heart and mediastinum are unchanged status post transcatheter aortic valve replacement. There are small bilateral pleural effusions. Bibasilar lung opacities, likely partial atelectasis. No pneumothorax seen. - Thoracic surgery managing - Water seal since 03/28, stable without air leak, CXR stable - d/w surgery, trial clamp, repeat CXR in 4 hrs (1200)-if stable plan to DC CT's 04/02 - CT's DC'd 04/02 and f/u CXR stable - coughing overnight-check CXR-unchanged, return to home albuterol nebs per pt request Assessment & Plan (04/15/2025 8:16 AM CDT): 2/2 compressions after PEA arrest 03/27 s/p placement of bilateral chest tubes - chest tubes to water seal per surgery - daily chest xrays, 03/31 CXR: Bilateral chest tubes. Heart and mediastinum are unchanged status post transcatheter aortic valve replacement. There are small bilateral pleural effusions. Bibasilar lung opacities, likely partial atelectasis. No pneumothorax seen. - Thoracic surgery managing - Water seal since 03/28, stable without air leak, CXR stable - d/w surgery, trial clamp, repeat CXR in 4 hrs (1200)-if stable plan to DC CT's 04/02 - CT's DC'd 04/02 and f/u CXR stable - coughing overnight-check CXR-unchanged, return to home albuterol nebs per pt request Assessment & Plan (04/14/2025 8:46 AM CDT): 2/2 compressions after PEA arrest 03/27 s/p placement of bilateral chest tubes - chest tubes to water seal per surgery - daily chest xrays, 03/31 CXR: Bilateral chest tubes. Heart and mediastinum are unchanged status post transcatheter aortic valve replacement. There are small bilateral pleural effusions. Bibasilar lung opacities, likely partial atelectasis. No pneumothorax seen. - Thoracic surgery managing - Water seal since 03/28, stable without air leak, CXR stable - d/w surgery, trial clamp, repeat CXR in 4 hrs (1200)-if stable plan to DC CT's 04/02 - CT's DC'd 04/02 and f/u CXR stable - coughing overnight-check CXR-unchanged, return to home albuterol nebs per pt request Assessment & Plan (04/13/2025 9:00 AM CDT): 2/2 compressions after PEA arrest 03/27 s/p placement of bilateral chest tubes - chest tubes to water seal per surgery - daily chest xrays, 03/31 CXR: Bilateral chest tubes. Heart and mediastinum are unchanged status post transcatheter aortic valve replacement. There are small bilateral pleural effusions. Bibasilar lung opacities, likely partial atelectasis. No pneumothorax seen. - Thoracic surgery managing - Water seal since 03/28, stable without air leak, CXR stable - d/w surgery, trial clamp, repeat CXR in 4 hrs (1200)-if stable plan to DC CT's 04/02 - CT's DC'd 04/02 and f/u CXR stable - coughing overnight-check CXR-unchanged, return to home albuterol nebs per pt request Assessment & Plan (04/12/2025 12:46 PM CDT): 2/2 compressions after PEA arrest 03/27 s/p placement of bilateral chest tubes - chest tubes to water seal per surgery - daily chest xrays, 03/31 CXR: Bilateral chest tubes. Heart and mediastinum are unchanged status post transcatheter aortic valve replacement. There are small bilateral pleural effusions. Bibasilar lung opacities, likely partial atelectasis. No pneumothorax seen. - Thoracic surgery managing - Water seal since 03/28, stable without air leak, CXR stable - d/w surgery, trial clamp, repeat CXR in 4 hrs (1200)-if stable plan to DC CT's 04/02 - CT's DC'd 04/02 and f/u CXR stable - coughing overnight-check CXR-unchanged, return to home albuterol nebs per pt request Assessment & Plan (04/11/2025 11:36 AM CDT): 2/2 compressions after PEA arrest 6/11 s/p placement of bilateral chest tubes - chest tubes to water seal per surgery - daily chest xrays, 03/31 CXR: Bilateral chest tubes. Heart and mediastinum are unchanged status post transcatheter aortic valve replacement. There are small bilateral pleural effusions. Bibasilar lung opacities, likely partial atelectasis. No pneumothorax seen. - Thoracic surgery managing - Water seal since 03/28, stable without air leak, CXR stable - d/w surgery, trial clamp, repeat CXR in 4 hrs (1200)-if stable plan to DC CT's 04/02 - CT's DC'd 04/02 and f/u CXR stable - coughing overnight-check CXR-unchanged, return to home albuterol nebs per pt request Assessment & Plan (04/10/2025 4:18 PM CDT): 2/2 compressions after PEA arrest 03/27 s/p placement of bilateral chest tubes - chest tubes to water seal per surgery - daily chest xrays, 03/31 CXR: Bilateral chest tubes. Heart and mediastinum are unchanged status post transcatheter aortic valve replacement. There are small bilateral pleural effusions. Bibasilar lung opacities, likely partial atelectasis. No pneumothorax seen. - Thoracic surgery managing - Water seal since 03/28, stable without air leak, CXR stable - d/w surgery, trial clamp, repeat CXR in 4 hrs (1200)-if stable plan to DC CT's 04/02 - CT's DC'd 04/02 and f/u CXR stable - coughing overnight-check CXR-unchanged, return to home albuterol nebs per pt request Assessment & Plan (04/09/2025 9:12 AM CDT): 2/2 compressions after PEA arrest 03/27 s/p placement of bilateral chest tubes - chest tubes to water seal per surgery - daily chest xrays, 03/31 CXR: Bilateral chest tubes. Heart and mediastinum are unchanged status post transcatheter aortic valve replacement. There are small bilateral pleural effusions. Bibasilar lung opacities, likely partial atelectasis. No pneumothorax seen. - Thoracic surgery managing - Water seal since 03/28, stable without air leak, CXR stable - d/w surgery, trial clamp, repeat CXR in 4 hrs (1200)-if stable plan to DC CT's 04/02 - CT's DC'd 04/02 and f/u CXR stable - coughing overnight-check CXR-unchanged, return to home albuterol nebs per pt request Assessment & Plan (04/08/2025 12:13 PM CDT): 2/2 compressions after PEA arrest 03/27 s/p placement of bilateral chest tubes - chest tubes to water seal per surgery - daily chest xrays, 03/31 CXR: Bilateral chest tubes. Heart and mediastinum are unchanged status post transcatheter aortic valve replacement. There are small bilateral pleural effusions. Bibasilar lung opacities, likely partial atelectasis. No pneumothorax seen. - Thoracic surgery managing - Water seal since 03/28, stable without air leak, CXR stable - d/w surgery, trial clamp, repeat CXR in 4 hrs (1200)-if stable plan to DC CT's 04/02 - CT's DC'd 04/02 and f/u CXR stable - coughing overnight-check CXR-unchanged, return to home albuterol nebs per pt request Assessment & Plan (04/07/2025 11:34 AM CDT): 2/2 compressions after PEA arrest 03/27 s/p placement of bilateral chest tubes - chest tubes to water seal per surgery - daily chest xrays, 03/31 CXR: Bilateral chest tubes. Heart and mediastinum are unchanged status post transcatheter aortic valve replacement. There are small bilateral pleural effusions. Bibasilar lung opacities, likely partial atelectasis. No pneumothorax seen. - Thoracic surgery managing - Water seal since 03/28, stable without air leak, CXR stable - d/w surgery, trial clamp, repeat CXR in 4 hrs (1200)-if stable plan to DC CT's 04/02 - CT's DC'd 04/02 and f/u CXR stable - coughing overnight-check CXR-unchanged, return to home albuterol nebs per pt request Assessment & Plan (04/06/2025 10:54 AM CDT): 2/2 compressions after PEA arrest 611 s/p placement of bilateral chest tubes - chest tubes to water seal per surgery - daily chest xrays, 03/31 CXR: Bilateral chest tubes. Heart and mediastinum are unchanged status post transcatheter aortic valve replacement. There are small bilateral pleural effusions. Bibasilar lung opacities, likely partial atelectasis. No pneumothorax seen. - Thoracic surgery managing - Water seal since 03/28, stable without air leak, CXR stable - d/w surgery, trial clamp, repeat CXR in 4 hrs (1200)-if stable plan to DC CT's 04/02 - CT's DC'd 04/02 and f/u CXR stable - coughing overnight-check CXR-unchanged, return to home albuterol nebs per pt request Assessment & Plan (04/05/2025 12:28 PM CDT): 2/2 compressions after PEA arrest 03/27 s/p placement of bilateral chest tubes - chest tubes to water seal per surgery - daily chest xrays, 03/31 CXR: Bilateral chest tubes. Heart and mediastinum are unchanged status post transcatheter aortic valve replacement. There are small bilateral pleural effusions. Bibasilar lung opacities, likely partial atelectasis. No pneumothorax seen. - Thoracic surgery managing - Water seal since 03/28, stable without air leak, CXR stable - d/w surgery, trial clamp, repeat CXR in 4 hrs (1200)-if stable plan to DC CT's 04/02 - CT's DC'd 04/02 and f/u CXR stable - coughing overnight-check CXR-unchanged, return to home albuterol nebs per pt request Assessment & Plan (04/04/2025 11:26 AM CDT): 2/2 compressions after PEA arrest 03/27 s/p placement of bilateral chest tubes - chest tubes to water seal per surgery - daily chest xrays, 03/31 CXR: Bilateral chest tubes. Heart and mediastinum are unchanged status post transcatheter aortic valve replacement. There are small bilateral pleural effusions. Bibasilar lung opacities, likely partial atelectasis. No pneumothorax seen. - Thoracic surgery managing - Water seal since 03/28, stable without air leak, CXR stable - d/w surgery, trial clamp, repeat CXR in 4 hrs (1200)-if stable plan to DC CT's 04/02 - CT's DC'd 04/02 and f/u CXR stable - coughing overnight-check CXR, return to home albuterol nebs per pt request Assessment & Plan (04/03/2025 11:53 AM CDT): 2/2 compressions after PEA arrest 6/11 s/p placement of bilateral chest tubes - chest tubes to water seal per surgery - daily chest xrays, 03/31 CXR: Bilateral chest tubes. Heart and mediastinum are unchanged status post transcatheter aortic valve replacement. There are small bilateral pleural effusions. Bibasilar lung opacities, likely partial atelectasis. No pneumothorax seen. - Thoracic surgery managing - Water seal since 03/28, stable without air leak, CXR stable - d/w surgery, trial clamp, repeat CXR in 4 hrs (1200)-if stable plan to DC CT's 04/02 - CT's DC'd 04/02 and f/u CXR stable Assessment & Plan (04/02/2025 10:42 AM CDT): 2/2 compressions after PEA arrest 03/27 s/p placement of bilateral chest tubes - chest tubes to water seal per surgery - daily chest xrays, 03/31 CXR: Bilateral chest tubes. Heart and mediastinum are unchanged status post transcatheter aortic valve replacement. There are small bilateral pleural effusions. Bibasilar lung opacities, likely partial atelectasis. No pneumothorax seen. - Thoracic surgery managing - Water seal since 03/28, stable without air leak, CXR stable - d/w surgery, trial clamp, repeat CXR in 4 hrs (1200)-if stable plan to DC CT's 04/02 Assessment & Plan (04/01/2025 1:08 PM CDT): 2/2 compressions after PEA arrest 03/27 s/p placement of bilateral chest tubes - chest tubes to water seal per surgery - daily chest xrays, 03/31 CXR: Bilateral chest tubes. Heart and mediastinum are unchanged status post transcatheter aortic valve replacement. There are small bilateral pleural effusions. Bibasilar lung opacities, likely partial atelectasis. No pneumothorax seen. - Thoracic surgery managing - Water seal since 03/28, stable without air leak, CXR stable - 04/01 d/w surgery, trial clamp, CXR in 4 hrs (1500) Assessment & Plan (03/31/2025 2:26 PM CDT): 2/2 compressions after PEA arrest 03/27 s/p placement of bilateral chest tubes - chest tubes to water seal per surgery - daily chest xrays, 03/31 CXR: Bilateral chest tubes. Heart and mediastinum are unchanged status post transcatheter aortic valve replacement. There are small bilateral pleural effusions. Bibasilar lung opacities, likely partial atelectasis. No pneumothorax seen. 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 06/14/2019 06/24/2020 Viral upper respiratory tract infection 08/01/2018 12/23/2021 History of radiofrequency ab lation (RFA) procedure for cardiac arrhythmia 08/01/2018 022 Hypercholesterolemia 08/01/2018 022 Mitral valve stenosis and ao rtic valve stenosis 01/06/2018 01/06/2018 Palpitations 01/03/2018 03/07/2023 Abnormal gait 12/30/2016 03/07/2023 Body mass index 40+ - severely obese 09/08/2016 06/28/2017 Overview (01/21/2017): Morbid obesity with BMI of 40.0-44.9, adult Morbid obesity 09/08/2016 06/28/2017 Overview (01/21/2017): Morbid obesity due to excess calories Hypertension 09/28/2013 08/01/2018 Aortic valve stenosis 09/28/20132019 Disorder of breast 05/21/2011 2 Encounters Date Type Department Care Team Description 05/24/2025 11:15 AM CDT Office Visit [facility] Cardiology [address] [address] Jena Dahl MD S/P TAVR (transcatheter aortic valve replacement) (Primary Dx); Coronary artery disease involving k[place]ock coronary artery of k[place]ock heart without angina pectoris; Status post angioplasty with stent; Hypertension associated with type 2 diabetes mellitus (HCC); Paroxysmal atrial fibrillation (HCC); Retroperitoneal hematoma; History of DVT (deep vein thrombosis); S/P IVC filter 05/21/2025 Results Follow-Up [facility] Emergency Department [address] [place] [address] Mihai Fischer RN Hemoglobin A1c, CBC with auto differential, Basic metabolic panel, POCT glucose 05/20/2025 3:52 PM CDT - 05/22/2025 12:47 PM CDT Emergency [facility] Emergency Department [address] [place] [phone] Francisco Cox MD Thomas, MD Ayan Lee, Ganga Florez MD PhD Emilio, MD Nehemiah Rodriguez, MD Jose Choi Cheuk Ho Jeffrey, MD Abdominal pain (Primary Dx); Traumatic retroperitoneal hematoma, subsequent encounter; DVT of deep femoral vein, left (HCC); ABLA (acute blood loss anemia); Aortic stenosis, severe; DVT (deep venous thrombosis) (HCC); Restless legs Discharge Disposition: Discharge to home, home health skilled care 04/24/2025 Telephone [facility] Cardiology [address] [place] [address] Advanced Medicine 8th [place] [address] [place] [phone] Lexy Harrison 04/15/2025 8:15 AM CDT Ancillary Procedure [facility] Vascular Lab IP [address] [facility] [address] [place] [address] 04/15/2025 Orders Only [facility] Radiology [address] [place] [address] Altaf Posey RN 04/15/2025 Orders Only [facility] [address] [place] [address] Karla Castro RN 04/12/2025 8:00 AM CDT Anesthesia Event [facility] [address] [place] [phone] Bryant Minaya MD Bish, Lurena 04/12/2025 8:00 AM CDT - 04/12/2025 8:40 AM CDT Surgery [facility] [address] [place] [phone] Nasrin Armendariz MD COLON CONTROL BLEEDING 04/10/2025 1:33 PM CDT Anesthesia Event [facility] [address] [place] [phone] Tobin Hanna MD Rangel, Nicholas Richard 04/10/2025 1:20 PM CDT - 04/10/2025 2:00 PM CDT Surgery [facility] [address] [phone] Gricelda Suazo MD SIGMOID CONTROL BLEEDING 03/26/2025 8:58 PM CDT Anesthesia Event [facility] [address] [place] [address] Wilfred Meraz MD Karanikolas, Menelaos, MD 03/26/2025 7:21 PM CDT - 05/10/2025 1:10 PM CDT Hospital [address] [phone] Jeremiah Dalal MD Schwartz, David B., MD PhD Juan Carlos, MD Jennifer Lares Gizem, MD Almiron-Torra lba, MD Ty Lancaster, MD Carroll Harris Maria, MD Qureshi, MD Wendy Florence, MD Meek Silver Bashar, MD Traumatic pneumothorax, initial encounter (Primary Dx); Bradycardia; Hemorrhagic shock (HCC); Gastrointestinal hemorrhage associated with anorectal source; ABLA (acute blood loss anemia); Hematochezia Discharge Disposition: Discharge to an IP Rehab facility 03/26/2025 3:20 AM CDT - 03/26/2025 5:05 AM CDT Surgery [facility] Cardiac Catheterization Lab [address] [place] [address] Jena Dahl MD ANGIOGRAPHY - BILATERAL EXTREMITY S&I [id number] 03/25/2025 8:00 AM CDT - 03/25/2025 10:00 AM CDT Surgery [facility] Cardiac Catheterization Lab [address] [place] [address] Jena Dahl MD TAVR - 03/25/2025 7:54 AM CDT Anesthesia Event [facility] Cardiac Catheterization Lab [address] [place] [address] Kaitlynn Bee DO Eldin, Ali S., MD 03/25/2025 6:02 AM CDT - 03/26/2025 6:44 PM CDT Hospital Encounter [facility] Cardiac Intensive Care [address] [place] [address] Jena Dahl MD Boland, Matthew E., MD S/P TAVR (transcatheter aortic valve replacement) (Primary Dx); Aortic stenosis, severe; Hemorrhagic shock (HCC) Discharge Disposition: Discharge to a short term hospital for IP 03/19/2025 1:41 PM CDT - 03/19/2025 11:59 PM CDT Hospital Encounter [facility] Diagnostic Imaging [address] [place] [address] Discharge Disposition: Discharge to home or self care 03/19/2025 1:15 PM CDT Pre-Admission Testing [facility] Pre Anesthesia Testing [address] [place] [address] Pre-operative exam (Primary Dx); PAF (paroxysmal atrial fibrillation) (HCC); Chronic anticoagulation; Type 2 diabetes mellitus with stage 3 chronic kidney disease, with long-term current use of insulin, unspecified whether stage 3a or 3b CKD (HCC) 03/19/2025 Anticoagulation Visit [facility] Cardiology [address] [place] [phone] Nataliya Garza RN Chronic anticoagulation (Primary Dx); S/P ablation of atrial fibrillation; Paroxysmal atrial fibrillation (HCC) 03/14/2025 Orders Only [facility] Cardiac Catheterization Lab [address] [place] [address] Jena Dahl MD Aortic stenosis, severe (Primary Dx) 03/14/2025 Documentation Cardiothoracic Surgery Daksha Spicer RN 03/07/2025 12:30 PM CDT Office Visit [facility] Surgery [address] [facility] [address] [place] [address] Brinda Pisano MD Aortic valve stenosis, etiology of cardiac valve disease unspecified (Primary Dx); Nonrheumatic aortic valve stenosis 03/07/2025 Documentation Cardiothoracic Surgery Daksha Spicer RN 03/01/2025 9:09 AM CDT - 03/01/2025 11:59 PM CDT Hospital Encounter [facility] Vascular Lab [id number] [place] [id number] Severe aortic stenosis; Dizziness Discharge Disposition: Discharge to home or self care 03/01/2025 9:09 AM CDT - 03/01/2025 11:59 PM CDT Hospital Encounter [facility] Imaging and Radiology [id number] [place], [place] [id number] Severe aortic stenosis Discharge Disposition: Discharge to home or self care from Last 3 Months Immunizations Immunization Administration Dates Next Due Influenza, Quadrivalent, Rec ombinant, Egg Free, Preservative Free, Intramuscular 07/03/2019 Influenza, Trivalent, High D ose, Split, Preservative Free, Intramuscular 2018 Pneumococcal Polysaccharide PPV23 11/02/2018 Surgical History Surgery Date Site/Laterality Comments SINUS SURGERY Sinus Surgery TOTAL KNEE ARTHROPLASTY Left Total Knee Replacement KNEE SURGERY Right Knee Surgery TONSILLECTOMY Tonsillectomy ADENOIDECTOMY Adenoidectomy APPENDECTOMY HYSTERECTOMY CARDIAC SURGERY CARDIAC ELECTROPHYSIOLOGY MAPPING AND ABLATION CARDIOVERSION x2 BACK SURGERY L3-4 SECTION BREAST SURGERY multiple biopsies over past 10 years CATARACT EXTRACTION 2020 JOINT REPLACEMENT Both knees - Right done 12/15/2018 SPINE SURGERY lumbar years ago CARDIAC CATHETERIZATION 02/21/2025 N/A Procedure: LEFT HEART CATHETERIZATION WITH CORONARY ANGIOGRAPHY AND WITH OR WITHOUT LEFT VENTRICULOGRAM [id number]; Surgeon: Jena Dahl MD; Location: CARDIAC INCOME TAX PREPARER; Service: Cardiovascular; Laterality: N/A; CARDIAC CATHETERIZATION 02/21/2025 N/A Procedure: ULTRASOUND GUIDANCE FOR VASCULAR ACCESS S&I [id number]; Surgeon: Jena Dahl MD; Location: CARDIAC INCOME TAX PREPARER; Service: Cardiovascular; Laterality: N/A; CARDIAC CATHETERIZATION 03/25/2025 Chest/N/A Procedure: TAVR -; Surgeon: Jena Dahl MD; Location: CARDIAC INCOME TAX PREPARER; Service: Cardiovascular; Laterality: N/A; Medical devices from this surgery are in the Medical Devices section. CARDIAC CATHETERIZATION 03/26/2025 N/A Procedure: ANGIOGRAPHY - BILATERAL EXTREMITY S&I [id number]; Surgeon: Jena Dahl MD; Location: CARDIAC INCOME TAX PREPARER; Service: Cardiovascular; Laterality: N/A; Medical devices from this surgery are in the Medical Devices section. CARDIAC CATHETERIZATION 03/26/2025 N/A Procedure: PET CARE ATTENDANT STENT ILIAC, UNILATERAL, FIRST VESSEL [id number]; Surgeon: Jena Dahl MD; Location: CARDIAC INCOME TAX PREPARER; Service: Cardiovascular; Laterality: N/A; Medical devices from this surgery are in the Medical Devices section. CARDIAC CATHETERIZATION 03/26/2025 N/A Procedure: PERIPHERAL ANGIOPLASTY; Surgeon: Jena Dahl MD; Location: CARDIAC INCOME TAX PREPARER; Service: Cardiovascular; Laterality: N/A; Medical devices from this surgery are in the Medical Devices section. CARDIAC CATHETERIZATION 03/26/2025 N/A Procedure: ULTRASOUND GUIDANCE FOR VASCULAR ACCESS S&I [id number]; Surgeon: Jena Dahl MD; Location: CARDIAC INCOME TAX PREPARER; Service: Cardiovascular; Laterality: N/A; Medical devices from this surgery are in the Medical Devices section. EMBOLIZATION VASCULAR EXTRAVASATION ARTERIAL VENOUS OR LYMPHATIC 03/26/2025 N/A INSERT VENA CAVA FILTER 04/15/2025 N/A Medical History Medical History Date Comments Asthma Asthma Hypothyroidism Cancer (HCC) Diabetes (HCC) Eating disorder Hypertension Kidney disease Sinusitis DJD (degenerative joint disease) Sleep apnea ERIKA (obstructive sleep apnea) Atrial fibrillation (HCC) TIA (transient ischemic attack) 2009 CKD (chronic kidney disease) Anemia Endometrial cancer PFO (patent foramen ovale) Type 2 diabetes mellitus Nonrheumatic aortic (valve) stenosis Restless leg COPD (chronic obstructive pulmonary disease) Spinal stenosis Osteoporosis Years ago thru present Cataract 2019 MITTAL (dyspnea on exertion) Fatigue Heart disease Motion sickness Acute respiratory failure 03/31/2025 Family History Medical History Relation Name Comments Asthma Brother Amos Diabetes Brother Amos Hypertension Brother Amos Obesity Brother Amos Asthma Daughter Cindy Hypertension Daughter Cindy Rashes / Skin problems Daughter Cindy Asthma Father Dad COPD Father Dad Cancer Father Dad Depression Father Dad Hearing loss Father Dad Hypertension Father Dad Obesity Father Dad Asthma Father's Brother Taye Cancer Maternal Grandfather Gilson Diabetes Maternal Grandmother Mariana Hyperlipidemia Maternal Grandmother Mariana Obesity Maternal Grandmother Mariana Arthritis Mother Mom Cancer Mother Mom Heart disease Mother Mom Hypertension Mother Mom Mental illness Mother Mom Obesity Mother Mom Obesity Mother's Brother Eagle Alcohol abuse Paternal Grandfather Dad COPD Paternal Grandfather Dad Kidney disease Paternal Grandmother Maira Arthritis Sister Mira Diabetes Sister Mira Heart disease Sister Mira Hyperlipidemia Sister Mira Obesity Sister Mria Anesthesia problems Neg Hx Relation Name Status Comments Brother Amos Daughter Cindy Father Dad Father's Brother Taye Maternal Grandfather Gilson Maternal Grandmother Mariana Mother Mom Mother's Brother Eagle Paternal Grandfather Dad Paternal Grandmother Maira Sister Mira Social History Tobacco Use Types Packs/Day Years Used Date Smoking Tobacco: Never Passive Smoke Exposure: Past Smokeless Tobacco: Never Tobacco Cessation:Counseling Given: Not Answered Alcohol Use Standard Drinks/Week Comments No 0 (1 standard drink = 0.6 oz pur e alcohol) [facility] Utilities Answer Date Recorded In the past 12 months has PT [employer], gas, oil, or water [employer] threatened to shut off services in your home? No 04/24/2025 Social Connection and Isolation Panel Answer Date Recorded In a typical week, how many times do you talk on the phone with family, friends, or neighbors? More than three times a week 04/24/2025 How often do you get togethe r with friends or relatives? More than three times a week 04/24/2025 How often do you attend [facility] or pentecostal services? More than 4 times per year 04/24/2025 Do you belong to any clubs o r organizations such as pentecostal groups, unions, fraternal or athletic groups, or school groups? No 04/24/2025 How often do you attend meet ings of the clubs or organizations you belong to? Never 04/24/2025 Are you , , di vorced, , never , or living with a partner? 04/24/2025 AUDIT-C Answer Date Recorded Q1: How often do you have a drink containing alcohol? Never 04/12/2025 Q2: How many drinks containi ng alcohol do you have on a typical day when you are drinking? Patient does not drink Q3: How often do you have si x or more drinks on one occasion? Never 04/12/2025 Overall Financial Resource Strain (CARDIA) Answe r Date Recorded How hard is it for you to pa y for the very basics like food, housing, medical care, and heating? Not hard at all 04/24/2025 PHQ-2 Answer Date Recorded PHQ-2 Total Score (If total score is 3 or more points, staff should administer the PHQ-9) 0 04/24/2025 Hunger Vital Sign Answer Date Recorded Within the past 12 months, y ou worried that your food would run out before you got the money to buy more. Never true 04/24/20 25 Within the past 12 months, t he food you bought just didn't last and you didn't have money to get more. Never true 04/24/2025 PRAPARE - Transportation Answer Date Re corded In the past 12 months, has l ack of transportation kept you from medical appointments or from getting medications? No 06/2025 In the past 12 months, has l ack of transportation kept you from meetings, work, or from getting things needed for daily living? No 04/24/2025 Housing Stability Vital Sign Answer Glenn e Recorded In the last 12 months, was t here a time when you were not able to pay the mortgage or rent on time? No 04/24/2025 In the past 12 months, how m any times have you moved where you were living? 0 04/24/2025 At any time in the past 12 m [facility], were you homeless or living in a [facility] (including now)? No 04/24/2025 Personal Safety Answer Date Recorded Have you ever been in or are you currently in a harmful physical or emotional relationship or is someone making you feel afraid or unsafe? Denies 05/20/2025 Comments No Sex and Gender Information Value Date Recorded Sex Assigned at Not on file Legal Sex Female 11:00 AM POCKET SETTER Gender Identity Female 12/23/2020 9:30 AM POCKET SETTER Sexual Orientation Straight 12/08/2019 11 :19 AM POCKET SETTER Obstetrics History Last Filed Vital Signs Vital Sign Reading Time Taken Comments Blood Pressure 138/72 05/24/2025 11:16 AM CDT Pulse 97 05/24/2025 11:16 AM CDT Temperature 36.7 C (98.1 F) 05/22/2025 8:00 AM CDT Respiratory Rate 14 05/24/2025 11:16 AM CDT Oxygen Saturation 97% 05/24/2025 11:16 AM CDT Inhaled Oxygen Concentration - - Weight 100.2 kg (221 lb) 05/24/2025 11:16 AM CDT Height 175.3 cm (5' 9) 05/24/2025 11:16 AM CDT Body Mass Index 32.64 05/24/2025 11:16 AM CDT Plan of Treatment Health Maintenance Due Date Last Done Comments Albumin Creatinine Ratio, Urine 1950 Hepatitis C Screening 1950 Osteoporosis Screening-Bone Density Scan 1950 Dilated Eye Exam 1951 Foot Exam 1951 DTaP/Tdap/Td Vaccine (1 - Tdap) 1962 Hepatitis B Screening 1969 Zoster Vaccine (1 of 2) 2001 Well Visit 65+ 2016 Pneumococcal vaccine 65+ (2 of 2 - PCV) 11/02/2019 11/02/2018 Breast Cancer Screening-Mammogram 04/17/2025 04/17/2024, 04/06/2023, 03/23/2022, Additional history exists Influenza Vaccine (#1) 2025 07/03/2019, 2017 Hemoglobin A1C 11/20/2025 05/20/2025, 06/0 12/2024, 05/21/2019, Additional history exists Depression Screening 03/26/2026 03/26/2025 Lipid Panel 03/27/2026 03/27/2025, 06/17, 03/07/2023, Additional history exists Fall Risk Assessment 05/10/2026 05/10/2025 eGFR 05/22/2026 05/22/2025, 08/0 01/2025, 05/07/2025, Additional history exists Colon Cancer Screening-Colonoscopy 04/12/2035 04/12/2025 Colon Cancer Screening-CT Colonography Discontinued 04/12/2025, 04/10/2025 Colon Cancer Screening-DNA Stool Discontinued 04/12/20, 04/10/2025 Colon Cancer Screening-FIT Discontinued 04/12/2025, Colon Cancer Screening-Sigmoidoscopy Discontinued 04/12/2025, 04/10/2025 Medical Devices Implanted Type Area Marine Radio Installer And Servicer Device Identifier Shelf Expiration Date Model / Serial / Lot [employer] Viabahn 8mm 7fr 5cm 120cm Delivery System Superficial Femoral [id number] - [id number] - [id number] Implanted:Qty: 1 on 03/26/2025 by Jena Dahl MD at [facility] Stent [employer] 11/07/2027 [id number] / [id number] / [employer] Viabahn 8mm 7fr 10cm 120cm Delivery System Superficial Femoral [id number] - [id number] - [id number] Implanted:Qty: 1 on 03/26/2025 by Jena Dahl MD at [facility] Stent [employer] 07/14/2027 [id number] / [id number] / [employer] System Closure Repair Femoral Artery Suture Mediated Perclose Prostyle 06768-90 - [id number] Implanted:Qty: 1 on 03/26/2025 by Jena Dahl MD at [facility] Vascular Closure Device [employer] 01/14/2027 [id number] / / [id number] Knee Replacement Implanted:Sahil Bush MD (Quantity not on file) Left: Knee Description:2006 Depuy Orthopaedics Inc [id number] Smartset Medium Viscosity Cement 40gm Bone Gentamicin - [id number] Implanted:Qty: 1 on 12/15/2018 by Sonny Estrada MD at [facility] Right: Knee [employer] Inc [id number] 12/15/2019 [id number] / / [id number] Depuy Orthopaed[employer] Inc 3122-040 Smartset Medium Viscosity Cement 40gm Bone Sterile - [id number] Implanted:Qty: 1 on 12/15/2018 by Sonny Estrada MD at [facility] Right: Knee Dep[employer] Orth[employer] Inc [id number] 3122-040 / / Depuy Orthopa[employer] Inc [id number] Attune Cemented Cruciate Retaining Knee Right 6 Narrow Component - [id number] Implanted:Qty: 1 on 12/15/2018 by Sonny Estrada MD at [facility] Right: Knee [employer] Inc [id number] 09/15/2028 [id number] / / [id number] Depuy Orthopaed[employer] Inc [id number] Attune 14mm 50mm Cemented Revision Knee Stem Femoral Sterile - [id number] Implanted:Qty: 1 on 12/15/2018 by Sonny Estrada MD at [facility] Right: Knee [employer] Inc [id number] 08/16/2028 [id number] / / [id number] Depuy Orthopaedics Inc [id number] Attune Revision Cement Fix Bearing Knee 6 Baseplate Tibial - [id number] Implanted:Qty: 1 on 12/15/2018 by Sonny Estrada MD at [facility] Right: Knee [employer] Inc [id number] 08/16/2028 [id number] / / [id number] Biocomposites [id number] Stimulan Rapid Cure Kit Paste [employer] 10cc 20cc Bone Void - [id number] Implanted:Qty: 1 on 05/20/2019 by Sonny Estrada MD at [facility] Right: Knee [employer] 02/13/2022 [id number] / / Depuy Orthopaedics Inc [id number] Attune 8mm Cruciate Retaining Fix Bearing Knee 6 Insert Tibial - [id number] Implanted:Qty: 1 on 05/20/2019 by Sonny Estrada MD at [facility] Right: Knee [employer] Inc 03/16/2024 [id number] / / Anita Scientific Jay Synergy Xd Monorail 3mm 16mm 144cm Delivery System 1 Access Port [id number] - [id number] Implanted:Qty: 1 on 07/23/2024 by Jena Dahl MD at [facility] [employer]ec Scientific Jay 01/02/2026 [id number] / / [id number] SanteVet Synergy Xd Monorail 3mm 12mm 144cm Delivery System 1 Access Port [id number] - [id number] Implanted:Qty: 1 on 09/10/2024 by Jena Dahl MD at [facility] [employer] Jay 04/02/2026 [id number] / / [id number] SanteVet Stent Coronary Drug Eluting Rapid Exchange Synergy Megatron 5.47v26xf [place] Chromium [id number] - [id number] Implanted:Qty: 1 on 09/10/2024 by Jena Dahl MD at [facility] Scientific Jay 06/21/2025 [id number] / / [id number] [employer] System Closure Repair Femoral Artery Suture Mediated Perclose Prostyle 26374-57 - [id number] Implanted:Qty: 1 on 03/25/2025 by Jena Dahl MD at [facility] Vascular 01/14/2027 [id number] / / [id number] [employer] Valve Aortic Trnscath Jonathan 3 Ultra Resilia 26mm [id number] - [id number] - [id number] Implanted:Qty: 1 on 03/25/2025 by Jena Dahl MD at [facility] [employer] 10/31/2027 [id number] / [id number] / [employer] System Closure Repair Femoral Artery Suture Mediated Perclose Prostyle 87390-71 - [id number] Implanted:Qty: 1 on 03/25/2025 by Jena Dahl MD at [facility] [employer] 11/16/2026 [id number] / / [id number] [employer] System Closure Repair Femoral Artery Suture Mediated Perclose Prostyle 65326-42 - [id number] Implanted:Qty: 1 on 03/25/2025 by Jena Dahl MD at [facility] [employer] 01/14/2027 [id number] / / [id number] Comuto Angio-Seal Vip 6fr Closere Device [id number] - [id number] Implanted:Qty: 1 on 03/25/2025 by Jena Dahl MD at [facility] Pure [employer] Online 11/30/2025 [id number] / / [id number] Comuto Angio-Seal Vip Bondek-Plus 8fr .038in 70cm Hemostatic Latex Free [id number] - [id number] Implanted:Qty: 1 on 03/25/2025 by Jena Dahl MD at [facility] [employer] 06/20/2025 [id number] / / [id number] Closure Inc Device 10ml 5fr Closure Mynx Control 2 Mode Balloon Catheter [id number] - [id number] Implanted:Qty: 1 on 03/25/2025 by Jena Dahl MD at [facility] Access Closure Inc 01/17/2027 [id number] / / [id number] Dacentec Scientific Jay Coil Emolization Coated Detachable Embold [id number] [place] Tungsten [id number] - [id number] Implanted:Qty: 1 on 03/26/2025 at [facility] Tele[employer]ip Jay 12/28/2027 [id number] / / [id number] Anita Scientific homedeco2u Obsidio Embolic Liquid Proximal Us 1ml Syringe [id number] - [id number] Implanted:Qty: 1 on 03/26/2025 at [facility] [employer] Jay 01/21/2026 [id number] / / [id number] Comuto Angio-Seal Vip 6fr Closere Device [id number] - [id number] Implanted:Qty: 1 on 03/26/2025 at [facility] Com[employer] 11/30/2025 [id number] / / [id number] [employer] Per[employer] Logan Jugular Venal Cava Filter [id number] - [id number] Implanted:Qty: 1 on 04/15/2025 by Boom Mauricio MD at [facility] Per[facility] Vascular 03/16/2028 [id number] / / [id number] Explanted Type Area Marine Radio Installer And Servicer Device Identifier Shelf Expiration Date Model / Serial / Lot Depuy Orthopaedics Inc [id number] Attune 7mm Cruciate Retaining Fix Bearing Knee 6 Insert Tibial - [id number] Implanted:Qty: 1 on 12/15/2018 by Sonny Estrada MD at [facility] Explanted:Qty: 1 on 05/20/2019 at [facility] Right: Knee Depuy Orthopaedics Inc [id number] 03/16/2023 [id number] / / [id number] Procedures Procedure Name Priority Date/Time Associated Diagnosis Comments POCT GLUCOSE DEVICE Routine 05/22/2025 8 :32 AM CDT URINALYSIS AND REFLEX TO MICROSCOPIC AND CULTURE Routine 05/22/2025 5:35 AM CDT EGFR Routine 05/22/2025 5:25 AM CDT DIFFERENTIAL AUTO Routine 05/22/2025 5:2 5 AM CDT PHOSPHORUS Routine 05/22/2025 5:25 AM CDT MAGNESIUM Routine 05/22/2025 5:25 AM CDT BASIC METABOLIC PANEL Routine 05/22/2025 5:25 AM CDT CBC WITH AUTO DIFFERENTIAL Routine 05/22/2025 5:25 AM CDT POCT GLUCOSE DEVICE Routine 05/21/2025 10:55 PM CDT POCT GLUCOSE DEVICE Routine 05/21/2025 7 :12 PM CDT POCT GLUCOSE DEVICE Routine 05/21/2025 11:50 AM CDT POCT GLUCOSE DEVICE Routine 05/21/2025 8 :03 AM CDT POCT GLUCOSE DEVICE Routine 05/21/2025 4 :43 AM CDT POCT GLUCOSE DEVICE Routine 05/20/2025 9 :[address] CHEST ABDOMEN PELVIS W CONTRAST ED 05/20/2025 6:57 PM CDT TROPONIN I HIGH-SENSITIVITY 2-HOUR Timed 05/20/2025 6:25 PM CDT ECG 12-LEAD STAT 05/20/2025 4:39 PM CDT HEMOGLOBIN A1C STAT 05/20/2025 4:29 PM CDT LIPASE STAT 05/20/2025 4:29 PM CDT EGFR STAT 05/20/2025 4:29 PM CDT DIFFERENTIAL AUTO STAT 05/20/2025 4:2 9 PM CDT TROPONIN I HIGH-SENSITIVITY SERIES (BASELINE, 2HR, 4HR, 6HR) STAT 05/20/2025 4:29 PM CDT COMPREHENSIVE METABOLIC PANEL STAT 05/20/2025 4:29 PM CDT CBC WITH AUTO DIFFERENTIAL STAT 05/20/2025 4:29 PM CDT POCT GLUCOSE DEVICE Routine 05/20/2025 4 :17 PM CDT CO CRITICAL CARE ILL/INJURED PATIENT INIT 30-74 MIN Routine 05/20/2025 11:04 AM CDT POCT GLUCOSE DEVICE Routine 05/10/2025 12:37 PM CDT POCT GLUCOSE DEVICE Routine 05/10/2025 8 :47 AM CDT POCT GLUCOSE DEVICE Routine 05/09/2025 8 :14 PM CDT POCT GLUCOSE DEVICE Routine 05/09/2025 5 :48 PM CDT PEP THERAPY Routine 05/09/2025 1:00 PM CDT POCT GLUCOSE DEVICE Routine 05/09/2025 12:12 PM CDT PEP THERAPY Routine 05/09/2025 8:01 AM CDT POCT GLUCOSE DEVICE Routine 05/09/2025 8 :01 AM CDT PEP THERAPY Routine 05/08/2025 10:00 PM CDT POCT GLUCOSE DEVICE Routine 05/08/2025 7 :43 PM CDT PEP THERAPY Routine 05/08/2025 6:00 PM CDT POCT GLUCOSE DEVICE Routine 05/08/2025 5 :15 PM CDT PEP THERAPY Routine 05/08/2025 1:00 PM CDT POCT GLUCOSE DEVICE Routine 05/08/2025 11:05 AM CDT POCT GLUCOSE DEVICE Routine 05/08/2025 8 :26 AM CDT PEP THERAPY Routine 05/08/2025 8:01 AM CDT POCT GLUCOSE DEVICE Routine 05/08/2025 12:32 AM CDT PEP THERAPY Routine 05/07/2025 10:00 PM CDT EGFR Routine 05/07/2025 8:54 PM CDT MAGNESIUM Routine 05/07/2025 8:54 PM CDT PROTIME-INR Routine 05/07/2025 8:54 PM CDT BASIC METABOLIC PANEL Routine 05/07/2025 8:54 PM CDT CBC WITHOUT DIFFERENTIAL Routine 05/07/2025 8:54 PM CDT POCT GLUCOSE DEVICE Routine 05/07/2025 8 :16 PM CDT PEP THERAPY Routine 05/07/2025 6:00 PM CDT POCT GLUCOSE DEVICE Routine 05/07/2025 4 :48 PM CDT POCT GLUCOSE DEVICE Routine 05/07/2025 2 :55 PM CDT NM HEPATOBILIARY IMAGING W PHARMACEUTICAL INTERVENTION IP Routine 05/07/2025 2:12 PM CDT PEP THERAPY Routine 05/07/2025 1:00 PM CDT POCT GLUCOSE DEVICE Routine 05/07/2025 8 :35 AM CDT PEP THERAPY Routine 05/07/2025 8:01 AM CDT STOOL CULTURE Routine 05/06/2025 10:24 PM CDT C. DIFFICILE TESTING Routine 05/06/2025 10:24 PM CDT INFECTION PREVENTION VRE CULTURE Routine 05/06/2025 10:23 PM CDT PEP THERAPY Routine 05/06/2025 10:00 PM CDT EGFR Routine 05/06/2025 9:32 PM CDT COMPREHENSIVE METABOLIC PANEL Routine 05/06/2025 9:32 PM CDT CBC WITHOUT DIFFERENTIAL Routine 05/06/2025 9:32 PM CDT POCT GLUCOSE DEVICE Routine 05/06/2025 7 :29 PM CDT PEP THERAPY Routine 05/06/2025 6:00 PM CDT POCT GLUCOSE DEVICE Routine 05/06/2025 5 :52 PM CDT URINALYSIS, MICROSCOPIC ONLY Routine 05/06/2025 4:35 PM CDT URINALYSIS AND REFLEX TO MICROSCOPIC AND CULTURE Routine 05/06/2025 4:35 PM CDT POCT GLUCOSE DEVICE Routine 05/06/2025 4 :16 PM CDT POCT GLUCOSE DEVICE Routine 05/06/2025 3 :00 PM CDT US ABDOMEN LIMITED Today 05/06/2025 1: 30 PM CDT PEP THERAPY Routine 05/06/2025 1:00 PM CDT POCT GLUCOSE DEVICE Routine 05/06/2025 11:11 AM CDT PEP THERAPY Routine 05/06/2025 8:01 AM CDT EGFR Routine 05/06/2025 1:53 AM CDT LACTATE Routine 05/06/2025 1:53 AM CDT PHOSPHORUS Routine 05/06/2025 1:53 AM CDT MAGNESIUM Routine 05/06/2025 1:53 AM CDT BASIC METABOLIC PANEL Routine 05/06/2025 1:53 AM CDT CBC WITHOUT DIFFERENTIAL Routine 05/06/2025 1:53 AM CDT HEPATIC FUNCTION PANEL Routine 05/06/2025 1:53 AM CDT CRP (ACUTE PHASE) Routine 05/06/2025 1:5 3 AM CDT ERYTHROCYTE SEDIMENTATION RATE Routine 05/06/2025 1:53 AM CDT PEP THERAPY Routine 05/05/2025 10:00 PM CDT POCT GLUCOSE DEVICE Routine 05/05/2025 8 :15 PM CDT PEP THERAPY Routine 05/05/2025 6:00 PM CDT XR CHEST 1 VIEW IP Routine 05/05/2025 5:40 PM CDT POCT GLUCOSE DEVICE Routine 05/05/2025 5 :28 PM CDT BLOOD CULTURE Routine 05/05/2025 5:23 PM CDT BLOOD CULTURE Routine 05/05/2025 5:22 PM CDT RESPIRATORY PATHOGEN PANEL Routine 05/05/2025 4:58 PM CDT PEP THERAPY Routine 05/05/2025 1:00 PM CDT POCT GLUCOSE DEVICE Routine 05/05/2025 11:52 AM CDT POCT GLUCOSE DEVICE Routine 05/05/2025 8 :04 AM CDT PEP THERAPY Routine 05/05/2025 8:00 AM CDT BASIC METABOLIC PANEL Routine 05/05/2025 6:20 AM CDT EGFR Routine 05/05/2025 6:20 AM CDT DIFFERENTIAL AUTO Routine 05/05/2025 6:2 0 AM CDT PHOSPHORUS Routine 05/05/2025 6:20 AM CDT MAGNESIUM Routine 05/05/2025 6:20 AM CDT CBC WITH AUTO DIFFERENTIAL Routine 05/05/2025 6:20 AM CDT PEP THERAPY Routine 05/04/2025 10:00 PM CDT POCT GLUCOSE DEVICE Routine 05/04/2025 8 :16 PM CDT PEP THERAPY Routine 05/04/2025 6:00 PM CDT POCT GLUCOSE DEVICE Routine 05/04/2025 5 :08 PM CDT PEP THERAPY Routine 05/04/2025 1:00 PM CDT POCT GLUCOSE DEVICE Routine 05/04/2025 11:40 AM CDT POCT GLUCOSE DEVICE Routine 05/04/2025 8 :29 AM CDT PEP THERAPY Routine 05/04/2025 8:00 AM CDT MAGNESIUM Routine 05/04/2025 4:18 AM CDT EGFR Routine 05/04/2025 4:18 AM CDT BASIC METABOLIC PANEL Routine 05/04/2025 4:18 AM CDT PEP THERAPY Routine 05/03/2025 10:00 PM CDT POCT GLUCOSE DEVICE Routine 05/03/2025 7 :48 PM CDT POCT GLUCOSE DEVICE Routine 05/03/2025 5 :30 PM CDT PEP THERAPY Routine 05/03/2025 1:00 PM CDT XR CHEST 1 VIEW IP Routine 05/03/2025 12:05 PM CDT POCT GLUCOSE DEVICE Routine 05/03/2025 11:37 AM CDT POCT GLUCOSE DEVICE Routine 05/03/2025 8 :37 AM CDT PEP THERAPY Routine 05/03/2025 8:01 AM CDT PEP THERAPY Routine 05/02/2025 10:00 PM CDT MAGNESIUM Routine 05/02/2025 9:00 PM CDT EGFR Routine 05/02/2025 9:00 PM CDT BASIC METABOLIC PANEL Routine 05/02/2025 9:00 PM CDT POCT GLUCOSE DEVICE Routine 05/02/2025 7 :31 PM CDT POCT GLUCOSE DEVICE Routine 05/02/2025 4 :56 PM CDT PEP THERAPY Routine 05/02/2025 1:00 PM CDT POCT GLUCOSE DEVICE Routine 05/02/2025 11:39 AM CDT PEP THERAPY Routine 05/02/2025 8:01 AM CDT POCT GLUCOSE DEVICE Routine 05/02/2025 7 :47 AM CDT EGFR Routine 05/02/2025 5:41 AM CDT CBC WITHOUT DIFFERENTIAL Routine 05/02/2025 5:41 AM CDT PHOSPHORUS Routine 05/02/2025 5:41 AM CDT MAGNESIUM Routine 05/02/2025 5:41 AM CDT BASIC METABOLIC PANEL Routine 05/02/2025 5:41 AM CDT PEP THERAPY Routine 05/01/2025 10:00 PM CDT EGFR Routine 05/01/2025 9:16 PM CDT BASIC METABOLIC PANEL Routine 05/01/2025 9:16 PM CDT POCT GLUCOSE DEVICE Routine 05/01/2025 8 :19 PM CDT POCT GLUCOSE DEVICE Routine 05/01/2025 4 :26 PM CDT EGFR Routine 05/01/2025 2:41 PM CDT PHOSPHORUS Routine 05/01/2025 2:41 PM CDT MAGNESIUM Routine 05/01/2025 2:41 PM CDT BASIC METABOLIC PANEL Routine 05/01/2025 2:41 PM CDT PEP THERAPY Routine 05/01/2025 1:00 PM CDT POCT GLUCOSE DEVICE Routine 05/01/2025 12:28 PM CDT XR CHEST 1 VIEW IP Routine 05/01/2025 9:19 AM CDT POCT GLUCOSE DEVICE Routine 05/01/2025 8 :36 AM CDT PEP THERAPY Routine 05/01/2025 8:01 AM CDT POCT GLUCOSE DEVICE Routine 05/01/2025 7 :58 AM CDT POCT GLUCOSE DEVICE Routine 04/30/2025 8 :24 PM CDT POCT GLUCOSE DEVICE Routine 04/30/2025 6 :03 PM CDT POCT GLUCOSE DEVICE Routine 04/30/2025 12:21 PM CDT POCT GLUCOSE DEVICE Routine 04/30/2025 8 :22 AM CDT EGFR Routine 04/30/2025 4:54 AM CDT DIFFERENTIAL AUTO Routine 04/30/2025 4:5 4 AM CDT CBC WITH AUTO DIFFERENTIAL Routine 04/30/2025 4:54 AM CDT BASIC METABOLIC PANEL Routine 04/30/2025 4:54 AM CDT POCT GLUCOSE DEVICE Routine 04/29/2025 7 :38 PM CDT POCT GLUCOSE DEVICE Routine 04/29/2025 5 :06 PM CDT POCT GLUCOSE DEVICE Routine 04/29/2025 12:17 PM CDT PEP THERAPY Routine 04/29/2025 8:01 AM CDT POCT GLUCOSE DEVICE Routine 04/29/2025 7 :51 AM CDT EGFR Routine 04/29/2025 5:28 AM CDT CBC WITHOUT DIFFERENTIAL Routine 04/29/2025 5:28 AM CDT HEPATIC FUNCTION PANEL Routine 04/29/2025 5:28 AM CDT PHOSPHORUS Routine 04/29/2025 5:28 AM CDT MAGNESIUM Routine 04/29/2025 5:28 AM CDT BASIC METABOLIC PANEL Routine 04/29/2025 5:28 AM CDT PEP THERAPY Routine 04/28/2025 10:00 PM CDT POCT GLUCOSE DEVICE Routine 04/28/2025 8 :33 PM CDT POCT GLUCOSE DEVICE Routine 04/28/2025 6 :19 PM CDT POCT GLUCOSE DEVICE Routine 04/28/2025 11:58 AM CDT POCT GLUCOSE DEVICE Routine 04/28/2025 7 :32 AM CDT POCT GLUCOSE DEVICE Routine 04/27/2025 7 :21 PM CDT POCT GLUCOSE DEVICE Routine 04/27/2025 5 :41 PM CDT POCT GLUCOSE DEVICE Routine 04/27/2025 12:00 PM CDT POCT GLUCOSE DEVICE Routine 04/27/2025 8 :15 AM CDT MAGNESIUM Routine 04/27/2025 6:27 AM CDT EGFR Routine 04/27/2025 6:27 AM CDT BASIC METABOLIC PANEL Routine 04/27/2025 6:27 AM CDT CBC WITHOUT DIFFERENTIAL Routine 04/27/2025 6:27 AM CDT POCT GLUCOSE DEVICE Routine 04/26/2025 8 :05 PM CDT POCT GLUCOSE DEVICE Routine 04/26/2025 5 :46 PM CDT POCT GLUCOSE DEVICE Routine 04/26/2025 12:53 PM CDT POCT GLUCOSE DEVICE Routine 04/26/2025 8 :50 AM CDT EGFR Routine 04/26/2025 6:24 AM CDT BASIC METABOLIC PANEL Routine 04/26/2025 6:24 AM CDT MAGNESIUM Routine 04/26/2025 6:24 AM CDT CBC WITHOUT DIFFERENTIAL Routine 04/26/2025 6:24 AM CDT POCT GLUCOSE DEVICE Routine 04/25/2025 8 :12 PM CDT POCT GLUCOSE DEVICE Routine 04/25/2025 5 :30 PM CDT POCT GLUCOSE DEVICE Routine 04/25/2025 11:55 AM CDT PEP THERAPY Routine 04/25/2025 8:42 AM CDT PEP THERAPY Routine 04/25/2025 8:42 AM CDT POCT GLUCOSE DEVICE Routine 04/25/2025 7 :49 AM CDT EGFR Routine 04/25/2025 5:17 AM CDT CBC WITHOUT DIFFERENTIAL Routine 04/25/2025 5:17 AM CDT PHOSPHORUS Routine 04/25/2025 5:17 AM CDT MAGNESIUM Routine 04/25/2025 5:17 AM CDT BASIC METABOLIC PANEL Routine 04/25/2025 5:17 AM CDT POCT GLUCOSE DEVICE Routine 04/24/2025 7 :45 PM CDT XR ABDOMEN AP 1 VIEW ED Urgent/IP Urgent 04/24/2025 6:53 PM CDT POCT GLUCOSE DEVICE Routine 04/24/2025 5 :41 PM CDT ECG 12-LEAD Routine 04/24/2025 4:57 PM CDT POCT GLUCOSE DEVICE Routine 04/24/2025 12:38 PM CDT INFECTION PREVENTION KRYSTAL AURIS PCR, SURVEILLANCE Routine 04/24/2025 11:12 AM CDT POCT GLUCOSE DEVICE Routine 04/24/2025 8 :18 AM CDT CBC WITHOUT DIFFERENTIAL Routine 04/24/2025 5:53 AM CDT POCT GLUCOSE DEVICE Routine 04/23/2025 10:31 PM CDT POCT GLUCOSE DEVICE Routine 04/23/2025 7 :44 PM CDT POCT GLUCOSE DEVICE Routine 04/23/2025 5 :21 PM CDT POCT GLUCOSE DEVICE Routine 04/23/2025 12:31 PM CDT POCT GLUCOSE DEVICE Routine 04/23/2025 7 :38 AM CDT CBC WITHOUT DIFFERENTIAL Routine 04/23/2025 5:04 AM CDT POCT GLUCOSE DEVICE Routine 04/22/2025 7 :29 PM CDT POCT GLUCOSE DEVICE Routine 04/22/2025 5 :26 PM CDT POCT GLUCOSE DEVICE Routine 04/22/2025 11:18 AM CDT POCT GLUCOSE DEVICE Routine 04/22/2025 7 :40 AM CDT EGFR Routine 04/22/2025 4:09 AM CDT CBC WITHOUT DIFFERENTIAL Routine 04/22/2025 4:09 AM CDT HEPATIC FUNCTION PANEL Routine 04/22/2025 4:09 AM CDT PHOSPHORUS Routine 04/22/2025 4:09 AM CDT MAGNESIUM Routine 04/22/2025 4:09 AM CDT BASIC METABOLIC PANEL Routine 04/22/2025 4:09 AM CDT POCT GLUCOSE DEVICE Routine 04/21/2025 11:16 PM CDT POCT GLUCOSE DEVICE Routine 04/21/2025 8 :24 PM CDT POCT GLUCOSE DEVICE Routine 04/21/2025 4 :30 PM CDT POCT GLUCOSE DEVICE Routine 04/21/2025 11:27 AM CDT POCT GLUCOSE DEVICE Routine 04/21/2025 7 :46 AM CDT CBC WITHOUT DIFFERENTIAL Routine 04/21/2025 5:02 AM CDT POCT GLUCOSE DEVICE Routine 04/20/2025 8 :07 PM CDT POCT GLUCOSE DEVICE Routine 04/20/2025 5 :02 PM CDT POCT GLUCOSE DEVICE Routine 04/20/2025 11:13 AM CDT POCT GLUCOSE DEVICE Routine 04/20/2025 8 :01 AM CDT MAGNESIUM Routine 04/20/2025 4:42 AM CDT PHOSPHORUS Routine 04/20/2025 4:42 AM CDT EGFR Routine 04/20/2025 4:42 AM CDT BASIC METABOLIC PANEL Routine 04/20/2025 4:42 AM CDT CBC WITHOUT DIFFERENTIAL Routine 04/20/2025 4:42 AM CDT POCT GLUCOSE DEVICE Routine 04/19/2025 8 :20 PM CDT POCT GLUCOSE DEVICE Routine 04/19/2025 5 :12 PM CDT POCT GLUCOSE DEVICE Routine 04/19/2025 11:45 AM CDT POCT GLUCOSE DEVICE Routine 04/19/2025 7 :36 AM CDT CBC WITHOUT DIFFERENTIAL Routine 04/19/2025 6:16 AM CDT INFECTION PREVENTION KRYSTAL AURIS PCR, SURVEILLANCE Routine 04/19/2025 6:16 AM CDT POCT GLUCOSE DEVICE Routine 04/18/2025 7 :55 PM CDT POCT GLUCOSE DEVICE Routine 04/18/2025 5 :07 PM CDT POCT GLUCOSE DEVICE Routine 04/18/2025 11:23 AM CDT POCT GLUCOSE DEVICE Routine 04/18/2025 7 :58 AM CDT EGFR Routine 04/18/2025 6:52 AM CDT CBC WITHOUT DIFFERENTIAL Routine 04/18/2025 6:52 AM CDT PHOSPHORUS Routine 04/18/2025 6:52 AM CDT MAGNESIUM Routine 04/18/2025 6:52 AM CDT BASIC METABOLIC PANEL Routine 04/18/2025 6:52 AM CDT POCT GLUCOSE DEVICE Routine 04/17/2025 8 :30 PM CDT POCT GLUCOSE DEVICE Routine 04/17/2025 7 :45 PM CDT POCT GLUCOSE DEVICE Routine 04/17/2025 5 :12 PM CDT POCT GLUCOSE DEVICE Routine 04/17/2025 11:44 AM CDT POCT GLUCOSE DEVICE Routine 04/17/2025 7 :42 AM CDT CBC WITHOUT DIFFERENTIAL Routine 04/17/2025 4:57 AM CDT POCT GLUCOSE DEVICE Routine 04/17/2025 12:02 AM CDT POCT GLUCOSE DEVICE Routine 04/16/2025 7 :21 PM CDT POCT GLUCOSE DEVICE Routine 04/16/2025 5 :15 PM CDT POCT GLUCOSE DEVICE Routine 04/16/2025 11:29 AM CDT POCT GLUCOSE DEVICE Routine 04/16/2025 7 :47 AM CDT EGFR Routine 04/16/2025 6:28 AM CDT MAGNESIUM Routine 04/16/2025 6:28 AM CDT RENAL FUNCTION PANEL Routine 04/16/2025 6:28 AM CDT CBC WITHOUT DIFFERENTIAL Routine 04/16/2025 6:28 AM CDT POCT GLUCOSE DEVICE Routine 04/15/2025 8 :03 PM CDT POCT GLUCOSE DEVICE Routine 04/15/2025 5 :56 PM CDT INSERT VENA CAVA FILTER IP Routine 04/15/2025 5:05 PM CDT US VEIN DUPLEX LOWER EXTREMITY BILATERAL COMPLETE IP Routine 04/15/2025 1:48 PM CDT POCT GLUCOSE DEVICE Routine 04/15/2025 11:20 AM CDT XR CHEST 1 VIEW ED Urgent/IP Urgent 04/15/2025 9:36 AM CDT ECG 12-LEAD STAT 04/15/2025 8:25 AM CDT POCT GLUCOSE DEVICE Routine 04/15/2025 7 :46 AM CDT EGFR Routine 04/15/2025 5:37 AM CDT CBC WITHOUT DIFFERENTIAL Routine 04/15/2025 5:37 AM CDT HEPATIC FUNCTION PANEL Routine 04/15/2025 5:37 AM CDT PHOSPHORUS Routine 04/15/2025 5:37 AM CDT MAGNESIUM Routine 04/15/2025 5:37 AM CDT BASIC METABOLIC PANEL Routine 04/15/2025 5:37 AM CDT POCT GLUCOSE DEVICE Routine 04/14/2025 8 :48 PM CDT DIFFERENTIAL AUTO Timed 04/14/2025 5:5 4 PM CDT CBC WITH AUTO DIFFERENTIAL Timed 04/14/2025 5:54 PM CDT POCT GLUCOSE DEVICE Routine 04/14/2025 4 :39 PM CDT DIFFERENTIAL AUTO Timed 04/14/2025 12:39 PM CDT CBC WITH AUTO DIFFERENTIAL Timed 04/14/2025 12:39 PM CDT POCT GLUCOSE DEVICE Routine 04/14/2025 11:33 AM CDT POCT GLUCOSE DEVICE Routine 04/14/2025 7 :44 AM CDT DIFFERENTIAL AUTO Timed 04/14/2025 6:0 3 AM CDT CBC WITH AUTO DIFFERENTIAL Timed 04/14/2025 6:03 AM CDT DIFFERENTIAL AUTO Timed 04/14/2025 12:20 AM CDT PROTIME-INR Timed 04/14/2025 12:20 AM CDT CBC WITH AUTO DIFFERENTIAL Timed 04/14/2025 12:20 AM CDT POCT GLUCOSE DEVICE Routine 04/13/2025 7 :52 PM CDT DIFFERENTIAL AUTO Timed 04/13/2025 5:4 4 PM CDT CBC WITH AUTO DIFFERENTIAL Timed 04/13/2025 5:44 PM CDT POCT GLUCOSE DEVICE Routine 04/13/2025 5 :12 PM CDT DIFFERENTIAL AUTO Timed 04/13/2025 12:00 PM CDT CBC WITH AUTO DIFFERENTIAL Timed 04/13/2025 12:00 PM CDT POCT GLUCOSE DEVICE Routine 04/13/2025 11:40 AM CDT POCT GLUCOSE DEVICE Routine 04/13/2025 7 :36 AM CDT DIFFERENTIAL AUTO Timed 04/13/2025 5:5 8 AM CDT CBC WITH AUTO DIFFERENTIAL Timed 04/13/2025 5:58 AM CDT DIFFERENTIAL AUTO Timed 04/13/2025 1:0 0 AM CDT CBC WITH AUTO DIFFERENTIAL Timed 04/13/2025 1:00 AM CDT POCT GLUCOSE DEVICE Routine 04/12/2025 9 :52 PM CDT POCT GLUCOSE DEVICE Routine 04/12/2025 7 :34 PM CDT DIFFERENTIAL AUTO Timed 04/12/2025 5:0 4 PM CDT CBC WITH AUTO DIFFERENTIAL Timed 04/12/2025 5:04 PM CDT POCT GLUCOSE DEVICE Routine 04/12/2025 4 :42 PM CDT DIFFERENTIAL AUTO Timed 04/12/2025 12:00 PM CDT CBC WITH AUTO DIFFERENTIAL Timed 04/12/2025 12:00 PM CDT POCT GLUCOSE DEVICE Routine 04/12/2025 11:22 AM CDT POCT GLUCOSE DEVICE Routine 04/12/2025 9 :18 AM CDT COLON CONTROL BLEEDING 04/12/2025 8:03 AM CDT ABLA (acute blood loss anemia) Hematochezia COLONOSCOPY 04/12/2025 7:57 AM CDT POCT GLUCOSE DEVICE Routine 04/12/2025 7 :29 AM CDT INFECTION PREVENTION KRYSTAL AURIS PCR, SURVEILLANCE Routine 04/12/2025 4:19 AM CDT DIFFERENTIAL AUTO Timed 04/12/2025 3:5 2 AM CDT CBC WITH AUTO DIFFERENTIAL Timed 04/12/2025 3:52 AM CDT DIFFERENTIAL AUTO Timed 04/12/2025 1:1 8 AM CDT CBC WITH AUTO DIFFERENTIAL Timed 04/12/2025 1:18 AM CDT TRANSFUSE RED BLOOD CELLS Timed 04/11/2025 9:50 PM CDT EGFR STAT 04/11/2025 9:08 PM CDT PROTIME-INR STAT 04/11/2025 9:08 PM CDT BASIC METABOLIC PANEL STAT 04/11/2025 9:08 PM CDT ARTERIAL BLOOD GAS W/LACTATE Routine 04/11/2025 8:59 PM CDT CBC WITHOUT DIFFERENTIAL Routine 04/11/2025 8:59 PM CDT POCT GLUCOSE DEVICE Routine 04/11/2025 8 :08 PM CDT DIFFERENTIAL AUTO Timed 04/11/2025 6:3 6 PM CDT CBC WITH AUTO DIFFERENTIAL Timed 04/11/2025 6:36 PM CDT POCT GLUCOSE DEVICE Routine 04/11/2025 5 :[address] ABDOMEN PELVIS W WO CONTRAST ED Urgent/IP Urgent 04/11/2025 4:35 PM CDT TRANSFUSE RED BLOOD CELLS Timed 04/11/2025 3:50 PM CDT PREPARE RBC Timed 04/11/2025 3:20 PM CDT TRANSFUSE PLATELETS Timed 04/11/2025 2 :02 PM CDT FIBRINOGEN STAT 04/11/2025 1:47 PM CDT APTT STAT 04/11/2025 1:47 PM CDT DIFFERENTIAL AUTO STAT 04/11/2025 1:4 7 PM CDT CBC WITH AUTO DIFFERENTIAL STAT 04/11/2025 1:47 PM CDT PROTIME-INR STAT 04/11/2025 1:47 PM CDT POCT GLUCOSE DEVICE Routine 04/11/2025 11:48 AM CDT PREPARE PLATELETS Timed 04/11/2025 11:10 AM CDT PREPARE RBC STAT 04/11/2025 11:09 AM CDT TRANSFUSE RED BLOOD CELLS Timed 04/11/2025 10:57 AM CDT PREPARE RBC Timed 04/11/2025 8:12 AM CDT POCT GLUCOSE DEVICE Routine 04/11/2025 7 :48 AM CDT CBC WITHOUT DIFFERENTIAL Routine 04/11/2025 5:40 AM CDT CBC WITHOUT DIFFERENTIAL Timed 04/10/2025 9:18 PM CDT POCT GLUCOSE DEVICE Routine 04/10/2025 7 :52 PM CDT EGFR Routine 04/10/2025 5:50 PM CDT PHOSPHORUS Routine 04/10/2025 5:50 PM CDT MAGNESIUM Routine 04/10/2025 5:50 PM CDT BASIC METABOLIC PANEL Routine 04/10/2025 5:50 PM CDT CBC WITHOUT DIFFERENTIAL Timed 04/10/2025 5:50 PM CDT POCT GLUCOSE DEVICE Routine 04/10/2025 5 :20 PM CDT FLEXIBLE SIGMOIDOSCOPY 04/10/2025 1:45 PM CDT SIGMOID CONTROL BLEEDING 04/10/2025 1:35 PM CDT Gastrointestinal hemorrhage associated with anorectal source POCT GLUCOSE DEVICE Routine 04/10/2025 11:59 AM CDT XR ABDOMEN AP 1 VIEW ED Urgent/IP Urgent 04/10/2025 11:44 AM CDT TYPE AND SCREEN STAT 04/10/2025 8:09 AM CDT CBC WITHOUT DIFFERENTIAL Timed 04/10/2025 8:09 AM CDT POCT GLUCOSE DEVICE Routine 04/10/2025 8 :07 AM CDT TRANSFUSE RED BLOOD CELLS Timed 04/10/2025 4:35 AM CDT PREPARE RBC Timed 04/10/2025 3:38 AM CDT CBC WITHOUT DIFFERENTIAL Timed 04/10/2025 2:05 AM CDT EGFR Timed 04/09/2025 9:57 PM CDT BASIC METABOLIC PANEL Timed 04/09/2025 9:57 PM CDT POTASSIUM, WHOLE BLOOD Timed 04/09/2025 9:57 PM CDT PROTIME-INR Timed 04/09/2025 9:57 PM CDT CBC WITHOUT DIFFERENTIAL Timed 04/09/2025 9:57 PM CDT POCT GLUCOSE DEVICE Routine 04/09/2025 9 :20 PM CDT POCT GLUCOSE DEVICE Routine 04/09/2025 5 :15 PM CDT CBC WITHOUT DIFFERENTIAL Timed 04/09/2025 2:30 PM CDT XR ABDOMEN AP 1 VIEW IP Routine 04/09/2025 12:21 PM CDT POCT GLUCOSE DEVICE Routine 04/09/2025 11:18 AM CDT CBC WITHOUT DIFFERENTIAL Timed 04/09/2025 8:17 AM CDT POCT GLUCOSE DEVICE Routine 04/09/2025 7 :32 AM CDT CBC WITHOUT DIFFERENTIAL Timed 04/09/2025 1:52 AM CDT CBC WITHOUT DIFFERENTIAL Timed 04/08/2025 8:45 PM CDT POCT GLUCOSE DEVICE Routine 04/08/2025 8 :04 PM CDT POCT GLUCOSE DEVICE Routine 04/08/2025 5 :17 PM CDT CBC WITHOUT DIFFERENTIAL Timed 04/08/2025 3:29 PM CDT POCT GLUCOSE DEVICE Routine 04/08/2025 11:39 AM CDT CBC WITHOUT DIFFERENTIAL Timed 04/08/2025 8:44 AM CDT POCT GLUCOSE DEVICE Routine 04/08/2025 8 :01 AM CDT CBC WITHOUT DIFFERENTIAL Timed 04/08/2025 5:04 AM CDT EGFR Timed 04/08/2025 2:33 AM CDT DIFFERENTIAL AUTO STAT 04/08/2025 2:3 3 AM CDT APTT STAT 04/08/2025 2:33 AM CDT PROTIME-INR STAT 04/08/2025 2:33 AM CDT LACTATE STAT 04/08/2025 2:33 AM CDT CBC WITH AUTO DIFFERENTIAL STAT 04/08/2025 2:33 AM CDT PHOSPHORUS Timed 04/08/2025 2:33 AM CDT MAGNESIUM Timed 04/08/2025 2:33 AM CDT BASIC METABOLIC PANEL Timed 04/08/2025 2:33 AM CDT CBC WITHOUT DIFFERENTIAL Timed 04/07/2025 8:28 PM CDT POCT GLUCOSE DEVICE Routine 04/07/2025 8 :[address] ABDOMEN PELVIS W WO CONTRAST ED Urgent/IP Urgent 04/07/2025 7:17 PM CDT POCT GLUCOSE DEVICE Routine 04/07/2025 5 :06 PM CDT CBC WITHOUT DIFFERENTIAL Timed 04/07/2025 4:39 PM CDT PROTIME-INR Routine 04/07/2025 4:39 PM CDT TYPE AND SCREEN Timed 04/07/2025 4:39 PM CDT POCT GLUCOSE DEVICE Routine 04/07/2025 11:32 AM CDT POCT GLUCOSE DEVICE Routine 04/07/2025 7 :27 AM CDT POCT GLUCOSE DEVICE Routine 04/06/2025 8 :39 PM CDT POCT GLUCOSE DEVICE Routine 04/06/2025 5 :14 PM CDT POCT GLUCOSE DEVICE Routine 04/06/2025 11:07 AM CDT POCT GLUCOSE DEVICE Routine 04/06/2025 9 :38 AM CDT POCT GLUCOSE DEVICE Routine 04/06/2025 8 :44 AM CDT POCT GLUCOSE DEVICE Routine 04/06/2025 8 :03 AM CDT POCT GLUCOSE DEVICE Routine 04/05/2025 10:56 PM CDT POCT GLUCOSE DEVICE Routine 04/05/2025 10:02 PM CDT POCT GLUCOSE DEVICE Routine 04/05/2025 9 :08 PM CDT POCT GLUCOSE DEVICE Routine 04/05/2025 8 :49 PM CDT POCT GLUCOSE DEVICE Routine 04/05/2025 8 :29 PM CDT POCT GLUCOSE DEVICE Routine 04/05/2025 3 :58 PM CDT URINALYSIS, MICROSCOPIC ONLY STAT 04/05/2025 1:34 PM CDT URINE CULTURE STAT 04/05/2025 1:34 PM CDT URINALYSIS AND REFLEX TO MICROSCOPIC AND CULTURE STAT 04/05/2025 1:34 PM CDT POCT GLUCOSE DEVICE Routine 04/05/2025 11:36 AM CDT POCT GLUCOSE DEVICE Routine 04/05/2025 7 :34 AM CDT EGFR Timed 04/05/2025 4:24 AM CDT PHOSPHORUS Timed 04/05/2025 4:24 AM CDT MAGNESIUM Timed 04/05/2025 4:24 AM CDT CBC WITHOUT DIFFERENTIAL Timed 04/05/2025 4:24 AM CDT BASIC METABOLIC PANEL Timed 04/05/2025 4:24 AM CDT INFECTION PREVENTION KRYSTAL AURIS PCR, SURVEILLANCE Routine 04/05/2025 4:24 AM CDT POCT GLUCOSE DEVICE Routine 04/04/2025 7 :50 PM CDT POCT GLUCOSE DEVICE Routine 04/04/2025 5 :13 PM CDT XR CHEST 1 VIEW ED Urgent/IP Urgent 04/04/2025 12:37 PM CDT POCT GLUCOSE DEVICE Routine 04/04/2025 11:21 AM CDT POCT GLUCOSE DEVICE Routine 04/04/2025 7 :32 AM CDT EGFR Routine 04/04/2025 5:18 AM CDT DIFFERENTIAL AUTO Routine 04/04/2025 5:1 8 AM CDT CBC WITH AUTO DIFFERENTIAL Routine 04/04/2025 5:18 AM CDT PHOSPHORUS Routine 04/04/2025 5:18 AM CDT BASIC METABOLIC PANEL Routine 04/04/2025 5:18 AM CDT POCT GLUCOSE DEVICE Routine 04/03/2025 8 :01 PM CDT HEPATIC FUNCTION PANEL STAT 04/03/2025 6:05 PM CDT PROTIME-INR STAT 04/03/2025 6:05 PM CDT POCT GLUCOSE DEVICE Routine 04/03/2025 5 :16 PM CDT POCT GLUCOSE DEVICE Routine 04/03/2025 11:29 AM CDT POCT GLUCOSE DEVICE Routine 04/03/2025 7 :50 AM CDT EGFR Timed 04/03/2025 4:56 AM CDT PHOSPHORUS Timed 04/03/2025 4:56 AM CDT MAGNESIUM Timed 04/03/2025 4:56 AM CDT CBC WITHOUT DIFFERENTIAL Timed 04/03/2025 4:56 AM CDT BASIC METABOLIC PANEL Timed 04/03/2025 4:56 AM CDT POCT GLUCOSE DEVICE Routine 04/02/2025 8 :35 PM CDT INFECTION PREVENTION KRYSTAL AURIS PCR, SURVEILLANCE Routine 04/02/2025 7:27 PM CDT XR CHEST PA LATERAL 2 VIEWS Timed 04/02/2025 5:59 PM CDT POCT GLUCOSE DEVICE Routine 04/02/2025 5 :45 PM CDT XR CHEST 1 VIEW Timed 04/02/2025 12:40 PM CDT POCT GLUCOSE DEVICE Routine 04/02/2025 11:55 AM CDT POCT GLUCOSE DEVICE Routine 04/02/2025 8 :46 AM CDT POCT GLUCOSE DEVICE Routine 04/02/2025 8 :18 AM CDT EGFR Timed 04/02/2025 5:37 AM CDT BASIC METABOLIC PANEL Timed 04/02/2025 5:37 AM CDT MAGNESIUM Timed 04/02/2025 5:37 AM CDT CBC WITHOUT DIFFERENTIAL Routine 04/02/2025 5:37 AM CDT CALCIUM, IONIZED Routine 04/02/2025 5:37 AM CDT HEPATIC FUNCTION PANEL Routine 04/02/2025 5:37 AM CDT PHOSPHORUS Routine 04/02/2025 5:37 AM CDT XR CHEST 1 VIEW Timed 04/02/2025 4:38 AM CDT POCT GLUCOSE DEVICE Routine 04/01/2025 8 :28 PM CDT EGFR Timed 04/01/2025 5:43 PM CDT BASIC METABOLIC PANEL Timed 04/01/2025 5:43 PM CDT MAGNESIUM Timed 04/01/2025 5:43 PM CDT POCT GLUCOSE DEVICE Routine 04/01/2025 5 :08 PM CDT XR CHEST 1 VIEW IP Routine 04/01/2025 3:24 PM CDT POCT GLUCOSE DEVICE Routine 04/01/2025 11:41 AM CDT POCT GLUCOSE DEVICE Routine 04/01/2025 8 :00 AM CDT XR CHEST 1 VIEW Timed 04/01/2025 6:55 AM CDT EGFR Timed 04/01/2025 5:16 AM CDT BASIC METABOLIC PANEL Timed 04/01/2025 5:16 AM CDT MAGNESIUM Timed 04/01/2025 5:16 AM CDT CBC WITHOUT DIFFERENTIAL Routine 04/01/2025 5:16 AM CDT LACTATE, WHOLE BLOOD Routine 04/01/2025 5:16 AM CDT TYPE AND SCREEN Timed 04/01/2025 5:16 AM CDT CALCIUM, IONIZED Routine 04/01/2025 5:16 AM CDT HEPATIC FUNCTION PANEL Routine 04/01/2025 5:16 AM CDT PHOSPHORUS Routine 04/01/2025 5:16 AM CDT POCT GLUCOSE DEVICE Routine 03/31/2025 9 :49 PM CDT EGFR Timed 03/31/2025 5:03 PM CDT BASIC METABOLIC PANEL Timed 03/31/2025 5:03 PM CDT MAGNESIUM Timed 03/31/2025 5:03 PM CDT POCT GLUCOSE DEVICE Routine 03/31/2025 4 :36 PM CDT POCT GLUCOSE DEVICE Routine 03/31/2025 11:53 AM CDT POCT GLUCOSE DEVICE Routine 03/31/2025 8 :35 AM CDT XR CHEST 1 VIEW Timed 03/31/2025 6:32 AM CDT EGFR Timed 03/31/2025 5:12 AM CDT BASIC METABOLIC PANEL Timed 03/31/2025 5:12 AM CDT MAGNESIUM Timed 03/31/2025 5:12 AM CDT CBC WITHOUT DIFFERENTIAL Routine 03/31/2025 5:12 AM CDT LACTATE, WHOLE BLOOD Routine 03/31/2025 5:12 AM CDT CALCIUM, IONIZED Routine 03/31/2025 5:12 AM CDT HEPATIC FUNCTION PANEL Routine 03/31/2025 5:12 AM CDT PHOSPHORUS Routine 03/31/2025 5:12 AM CDT POCT GLUCOSE DEVICE Routine 03/30/2025 10:07 PM CDT EGFR Timed 03/30/2025 4:48 PM CDT BASIC METABOLIC PANEL Timed 03/30/2025 4:48 PM CDT MAGNESIUM Timed 03/30/2025 4:48 PM CDT POCT GLUCOSE DEVICE Routine 03/30/2025 4 :05 PM CDT POCT GLUCOSE DEVICE Routine 03/30/2025 12:09 PM CDT MANAGER BUSINESS CONTINUITY EVALUATE AND TREAT CLINICAL SWALLOW Routine 03/30/2025 11:45 AM CDT MANAGER BUSINESS CONTINUITY EVALUATE AND TREAT Routine 03/30/2025 11:45 AM CDT XR CHEST 1 VIEW Timed 03/30/2025 11:44 AM CDT POCT GLUCOSE DEVICE Routine 03/30/2025 11:13 AM CDT POCT GLUCOSE DEVICE Routine 03/30/2025 8 :39 AM CDT POCT GLUCOSE DEVICE Routine 03/30/2025 8 :13 AM CDT EGFR Timed 03/30/2025 5:07 AM CDT DIFFERENTIAL AUTO Timed 03/30/2025 5:0 7 AM CDT CBC WITH AUTO DIFFERENTIAL Timed 03/30/2025 5:07 AM CDT LACTATE, WHOLE BLOOD Timed 03/30/2025 5:07 AM CDT BASIC METABOLIC PANEL Timed 03/30/2025 5:07 AM CDT CALCIUM, IONIZED Routine 03/30/2025 5:07 AM CDT HEPATIC FUNCTION PANEL Routine 03/30/2025 5:07 AM CDT MAGNESIUM Timed 03/30/2025 5:07 AM CDT OXYHEMOGLOBIN, CENTRAL VENOUS Timed 03/30/2025 5:07 AM CDT PHOSPHORUS Routine 03/30/2025 5:07 AM CDT POCT GLUCOSE DEVICE Routine 03/30/2025 5 :04 AM CDT POCT GLUCOSE DEVICE Routine 03/30/2025 12:05 AM CDT C. DIFFICILE TESTING Routine 03/29/2025 8:29 PM CDT INFECTION PREVENTION VRE CULTURE Routine 03/29/2025 8:28 PM CDT POCT GLUCOSE DEVICE Routine 03/29/2025 8 :19 PM CDT EGFR Timed 03/29/2025 4:04 PM CDT LACTATE, WHOLE BLOOD Timed 03/29/2025 4:04 PM CDT BASIC METABOLIC PANEL Timed 03/29/2025 4:04 PM CDT MAGNESIUM Timed 03/29/2025 4:04 PM CDT OXYHEMOGLOBIN, CENTRAL VENOUS Timed 03/29/2025 4:04 PM CDT POCT GLUCOSE DEVICE Routine 03/29/2025 3 :56 PM CDT EXTUBATION Routine 03/29/2025 2:44 PM CDT DIFFERENTIAL AUTO Timed 03/29/2025 12:41 PM CDT CBC WITH AUTO DIFFERENTIAL Timed 03/29/2025 12:41 PM CDT INFECTION PREVENTION KRYSTAL AURIS PCR, SURVEILLANCE Routine 03/29/2025 12:41 PM CDT POCT GLUCOSE DEVICE Routine 03/29/2025 11:22 AM CDT TRANSTHORACIC ECHO (TTE) COMPLETE W DOPPLER/CF W CONTRAST STAT 03/29/2025 8:42 AM CDT POCT GLUCOSE DEVICE Routine 03/29/2025 8 :02 AM CDT XR CHEST 1 VIEW Timed 03/29/2025 6:11 AM CDT EGFR Timed 03/29/2025 4:28 AM CDT PHOSPHORUS Timed 03/29/2025 4:28 AM CDT DIFFERENTIAL AUTO Timed 03/29/2025 4:2 8 AM CDT TYPE AND SCREEN Timed 03/29/2025 4:28 AM CDT BLOOD GAS, ARTERIAL Timed 03/29/2025 4 :28 AM CDT BASIC METABOLIC PANEL Timed 03/29/2025 4:28 AM CDT CALCIUM, IONIZED Routine 03/29/2025 4:28 AM CDT HEPATIC FUNCTION PANEL Routine 03/29/2025 4:28 AM CDT LACTATE, WHOLE BLOOD Timed 03/29/2025 4:28 AM CDT MAGNESIUM Timed 03/29/2025 4:28 AM CDT OXYHEMOGLOBIN, CENTRAL VENOUS Timed 03/29/2025 4:28 AM CDT CBC WITH AUTO DIFFERENTIAL Timed 03/29/2025 4:28 AM CDT POCT GLUCOSE DEVICE Routine 03/29/2025 4 :22 AM CDT POCT GLUCOSE DEVICE Routine 03/29/2025 12:34 AM CDT POCT GLUCOSE DEVICE Routine 03/28/2025 9 :17 PM CDT LACTATE, WHOLE BLOOD STAT 03/28/2025 8:47 PM CDT BLOOD GAS, ARTERIAL STAT 03/28/2025 8 :47 PM CDT EGFR Routine 03/28/2025 8:45 PM CDT BASIC METABOLIC PANEL Routine 03/28/2025 8:45 PM CDT DIFFERENTIAL AUTO Timed 03/28/2025 8:4 3 PM CDT OXYHEMOGLOBIN, CENTRAL VENOUS Timed 03/28/2025 8:43 PM CDT CALCIUM, IONIZED Timed 03/28/2025 8:43 PM CDT CBC WITH AUTO DIFFERENTIAL Timed 03/28/2025 8:43 PM CDT INFECTION PREVENTION KRYSTAL AURIS PCR, SURVEILLANCE Routine 03/28/2025 8:43 PM CDT POCT GLUCOSE DEVICE Routine 03/28/2025 7 :26 PM CDT EGFR Timed 03/28/2025 4:11 PM CDT LACTATE, WHOLE BLOOD STAT 03/28/2025 4:11 PM CDT BLOOD GAS, ARTERIAL STAT 03/28/2025 4 :11 PM CDT BASIC METABOLIC PANEL Timed 03/28/2025 4:11 PM CDT HEPATIC FUNCTION PANEL Timed 03/28/2025 4:11 PM CDT MAGNESIUM Timed 03/28/2025 4:11 PM CDT POCT GLUCOSE DEVICE Routine 03/28/2025 3 :37 PM CDT DIFFERENTIAL AUTO Timed 03/28/2025 12:33 PM CDT LACTATE, WHOLE BLOOD Timed 03/28/2025 12:33 PM CDT CALCIUM, IONIZED Timed 03/28/2025 12:33 PM CDT CBC WITH AUTO DIFFERENTIAL Timed 03/28/2025 12:33 PM CDT OXYHEMOGLOBIN, CENTRAL VENOUS Timed 03/28/2025 12:33 PM CDT POCT GLUCOSE DEVICE Routine 03/28/2025 11:31 AM CDT BLOOD GAS, ARTERIAL STAT 03/28/2025 9 :00 AM CDT LACTATE, WHOLE BLOOD Timed 03/28/2025 9:00 AM CDT POCT GLUCOSE DEVICE Routine 03/28/2025 7 :54 AM CDT XR CHEST 1 VIEW Timed 03/28/2025 5:39 AM CDT POCT GLUCOSE DEVICE Routine 03/28/2025 4 :17 AM CDT BLOOD GAS, ARTERIAL STAT 03/28/2025 4 :12 AM CDT EGFR Timed 03/28/2025 4:11 AM CDT MAGNESIUM Timed 03/28/2025 4:11 AM CDT PHOSPHORUS Timed 03/28/2025 4:11 AM CDT CRITICAL RESULT CALLBACK CHEMISTRY Timed 03/28/2025 4:11 AM CDT DIFFERENTIAL AUTO Timed 03/28/2025 4:1 1 AM CDT LACTATE, WHOLE BLOOD Timed 03/28/2025 4:11 AM CDT OXYHEMOGLOBIN, CENTRAL VENOUS Timed 03/28/2025 4:11 AM CDT BASIC METABOLIC PANEL Timed 03/28/2025 4:11 AM CDT HEPATIC FUNCTION PANEL Timed 03/28/2025 4:11 AM CDT CALCIUM, IONIZED Timed 03/28/2025 4:11 AM CDT CBC WITH AUTO DIFFERENTIAL Timed 03/28/2025 4:11 AM CDT POCT GLUCOSE DEVICE Routine 03/28/2025 1 :30 AM CDT CRITICAL RESULT CALLBACK CHEMISTRY Timed 03/28/2025 1:21 AM CDT LACTATE, WHOLE BLOOD Timed 03/28/2025 1:21 AM CDT OXYHEMOGLOBIN, CENTRAL VENOUS Timed 03/28/2025 1:[address] CHEST W AND ABDOMEN PELVIS W WO CONTRAST (C) IP Routine 03/28/2025 12:[address] HEAD WO CONTRAST IP Routine 03/28/2025 12:16 AM CDT VANCOMYCIN LEVEL RANDOM Timed 03/27/2025 11:08 PM CDT CRITICAL RESULT CALLBACK CHEMISTRY STAT 03/27/2025 10:59 PM CDT LACTATE, WHOLE BLOOD STAT 03/27/2025 10:59 PM CDT BLOOD GAS, ARTERIAL STAT 03/27/2025 10:59 PM CDT POCT GLUCOSE DEVICE Routine 03/27/2025 10:58 PM CDT POCT GLUCOSE DEVICE Routine 03/27/2025 8 :12 PM CDT BLOOD GAS, ARTERIAL STAT 03/27/2025 8 :08 PM CDT MAGNESIUM Routine 03/27/2025 8:00 PM CDT HEPATIC FUNCTION PANEL Routine 03/27/2025 8:00 PM CDT EGFR Routine 03/27/2025 8:00 PM CDT CRITICAL RESULT CALLBACK CHEMISTRY Timed 03/27/2025 8:00 PM CDT DIFFERENTIAL AUTO Timed 03/27/2025 8:0 0 PM CDT BASIC METABOLIC PANEL Routine 03/27/2025 8:00 PM CDT CALCIUM, IONIZED Timed 03/27/2025 8:00 PM CDT OXYHEMOGLOBIN, CENTRAL VENOUS Timed 03/27/2025 8:00 PM CDT LACTATE, WHOLE BLOOD Timed 03/27/2025 8:00 PM CDT CBC WITH AUTO DIFFERENTIAL Timed 03/27/2025 8:00 PM CDT INFECTION PREVENTION MRSA ONLY (STAPHYLOCOCCUS AUREUS) CULTURE Routine 03/27/2025 8:00 PM CDT XR CHEST 1 VIEW Critical/Life- Threatening 03/27/2025 5:40 PM CDT CHEST TUBE INSERTION Routine 03/27/2025 5:31 PM CDT Traumatic pneumothorax, initial encounter POC BLOOD GAS AND CHEMISTRIES, ARTERIAL Routine 03/27/2025 5:25 PM CDT XR CHEST 1 VIEW Critical/Life- Threatening 03/27/2025 4:45 PM CDT POC BLOOD GAS AND CHEMISTRIES, ARTERIAL Routine 03/27/2025 4:23 PM CDT POC BLOOD GAS AND CHEMISTRIES, ARTERIAL Routine 03/27/2025 4:05 PM CDT CHEST PHYSIO THERAPY Routine 03/27/2025 1:38 PM CDT IPV TREATMENT Routine 03/27/2025 1:38 PM CDT DIFFERENTIAL AUTO Timed 03/27/2025 12:15 PM CDT CALCIUM, IONIZED Timed 03/27/2025 12:15 PM CDT OXYHEMOGLOBIN, CENTRAL VENOUS Timed 03/27/2025 12:15 PM CDT LACTATE, WHOLE BLOOD Timed 03/27/2025 12:15 PM CDT CBC WITH AUTO DIFFERENTIAL Timed 03/27/2025 12:15 PM CDT XR CHEST 1 VIEW IP Routine 03/27/2025 12:10 PM CDT POCT GLUCOSE DEVICE Routine 03/27/2025 10:47 AM CDT AEROBIC CULTURE AND GRAM STAIN Routine 03/27/2025 8:48 AM CDT LACTATE, WHOLE BLOOD STAT 03/27/2025 8:39 AM CDT BLOOD GAS, ARTERIAL STAT 03/27/2025 8 :39 AM CDT POCT GLUCOSE DEVICE Routine 03/27/2025 7 :22 AM CDT XR CHEST 1 VIEW Timed 03/27/2025 6:40 AM CDT POCT GLUCOSE DEVICE Routine 03/27/2025 4 :03 AM CDT LIPID PANEL Routine 03/27/2025 3:58 AM CDT EGFR Routine 03/27/2025 3:58 AM CDT DIFFERENTIAL AUTO Timed 03/27/2025 3:5 8 AM CDT BLOOD GAS, ARTERIAL Timed 03/27/2025 3 :58 AM CDT LACTATE, WHOLE BLOOD Timed 03/27/2025 3:58 AM CDT CBC WITH AUTO DIFFERENTIAL Timed 03/27/2025 3:58 AM CDT CALCIUM, IONIZED Timed 03/27/2025 3:58 AM CDT PHOSPHORUS Routine 03/27/2025 3:58 AM CDT MAGNESIUM Routine 03/27/2025 3:58 AM CDT COMPREHENSIVE METABOLIC PANEL Routine 03/27/2025 3:58 AM CDT OXYHEMOGLOBIN, CENTRAL VENOUS Timed 03/27/2025 3:58 AM CDT XR CHEST 1 VIEW ED Urgent/IP Urgent 03/27/2025 1:40 AM CDT POCT GLUCOSE DEVICE Routine 03/26/2025 11:53 PM CDT THYROID FUNCTION CASCADE Routine 03/26/2025 11:43 PM CDT EGFR Routine 03/26/2025 11:43 PM CDT COMPREHENSIVE METABOLIC PANEL Routine 03/26/2025 11:43 PM CDT LACTATE, WHOLE BLOOD STAT 03/26/2025 11:34 PM CDT BLOOD GAS, ARTERIAL STAT 03/26/2025 11:34 PM CDT DIFFERENTIAL AUTO Timed 03/26/2025 11:30 PM CDT CBC WITH AUTO DIFFERENTIAL Timed 03/26/2025 11:30 PM CDT TROPONIN I HIGH-SENSITIVITY 4-HOUR Timed 03/26/2025 11:30 PM CDT OXYHEMOGLOBIN, CENTRAL VENOUS Timed 03/26/2025 11:30 PM CDT BLOOD CULTURE STAT 03/26/2025 11:30 PM CDT BLOOD CULTURE STAT 03/26/2025 11:30 PM CDT ECG 12-LEAD STAT 03/26/2025 11:04 PM CDT EMBOLIZATION VASCULAR EXTRAVASATION ARTERIAL VENOUS OR LYMPHATIC IP Routine 03/26/2025 10:45 PM CDT POC BLOOD GAS AND CHEMISTRIES, ARTERIAL Routine 03/26/2025 9:34 PM CDT PREPARE PLATELETS Routine 03/26/2025 8:5 6 PM CDT PREPARE PLASMA Routine 03/26/2025 8:56 PM CDT PREPARE RBC Routine 03/26/2025 8:[address] ABDOMEN PELVIS W WO CONTRAST Critical/Life- Threatening 03/26/2025 8:46 PM CDT CO INSJ NON-TUNNELED CENTRAL VENOUS CATH AGE 6 YR/> Routine 03/26/2025 8:15 PM CDT Hemorrhagic shock (HCC) URINALYSIS, MICROSCOPIC ONLY Routine 03/26/2025 7:53 PM CDT URINE CULTURE Routine 03/26/2025 7:53 PM CDT URINALYSIS AND REFLEX TO MICROSCOPIC AND CULTURE Routine 03/26/2025 7:53 PM CDT BLOOD GAS, ARTERIAL STAT 03/26/2025 7 :43 PM CDT TYPE AND SCREEN STAT 03/26/2025 7:43 PM CDT EGFR STAT 03/26/2025 7:41 PM CDT MAGNESIUM STAT 03/26/2025 7:41 PM CDT PHOSPHORUS STAT 03/26/2025 7:41 PM CDT CRITICAL RESULT CALLBACK CARDIO CHEM STAT 03/26/2025 7:41 PM CDT CRITICAL RESULT CALLBACK CHEMISTRY STAT 03/26/2025 7:41 PM CDT APTT STAT 03/26/2025 7:41 PM CDT DIFFERENTIAL AUTO STAT 03/26/2025 7:4 1 PM CDT PROTIME-INR STAT 03/26/2025 7:41 PM CDT PRO B-TYPE NATRIURETIC PEPTIDE STAT 03/26/2025 7:41 PM CDT TROPONIN I HIGH-SENSITIVITY SERIES (BASELINE, 2HR, 4HR, 6HR) STAT 03/26/2025 7:41 PM CDT LACTATE STAT 03/26/2025 7:41 PM CDT COMPREHENSIVE METABOLIC PANEL STAT 03/26/2025 7:41 PM CDT CBC WITH AUTO DIFFERENTIAL STAT 03/26/2025 7:41 PM CDT POC BLOOD GAS AND CHEMISTRIES, ARTERIAL Routine 03/26/2025 7:40 PM CDT POCT GLUCOSE DEVICE Routine 03/26/2025 7 :37 PM CDT TRANSFUSE PLASMA Timed 03/26/2025 5:55 PM CDT POCT GLUCOSE DEVICE Routine 03/26/2025 5 :51 PM CDT PREPARE PLASMA STAT 03/26/2025 5:08 PM CDT TRANSFUSE RED BLOOD CELLS Timed 03/26/2025 5:00 PM CDT PREPARE RBC STAT 03/26/2025 4:25 PM CDT POCT GLUCOSE DEVICE Routine 03/26/2025 4 :24 PM CDT PROTIME-INR STAT 03/26/2025 4:24 PM CDT FIBRINOGEN STAT 03/26/2025 4:24 PM CDT POTASSIUM, WHOLE BLOOD Timed 03/26/2025 4:24 PM CDT POCT GLUCOSE DEVICE Routine 03/26/2025 3 :35 PM CDT POCT GLUCOSE DEVICE Routine 03/26/2025 2 :33 PM CDT TRANSFUSE PLASMA Timed 03/26/2025 2:25 PM CDT BLOOD GAS, ARTERIAL STAT 03/26/2025 2 :18 PM CDT BLOOD GAS, VENOUS Routine 03/26/2025 2:1 8 PM CDT XR ABDOMEN AP 1 VIEW ED Urgent/IP Urgent 03/26/2025 1:57 PM CDT POCT GLUCOSE DEVICE Routine 03/26/2025 1 :33 PM CDT CTA CHEST ABDOMINAL AORTA AND BILATERAL ILIOFEMORAL IP Routine 03/26/2025 12:27 PM CDT EGFR Routine 03/26/2025 12:26 PM CDT LACTATE Timed 03/26/2025 12:26 PM CDT POTASSIUM, WHOLE BLOOD Timed 03/26/2025 12:26 PM CDT BASIC METABOLIC PANEL Routine 03/26/2025 12:26 PM CDT CBC WITHOUT DIFFERENTIAL Timed 03/26/2025 12:26 PM CDT POCT GLUCOSE DEVICE Routine 03/26/2025 12:25 PM CDT PREPARE PLASMA STAT 03/26/2025 11:40 AM CDT TRANSFUSE RED BLOOD CELLS Timed 03/26/2025 11:10 AM CDT PREPARE RBC STAT 03/26/2025 10:52 AM CDT POCT GLUCOSE DEVICE Routine 03/26/2025 10:49 AM CDT POCT GLUCOSE DEVICE Routine 03/26/2025 9 :49 AM CDT TRANSFUSE PLATELETS Timed 03/26/2025 9 :35 AM CDT PREPARE PLATELETS STAT 03/26/2025 9:0 5 AM CDT POCT GLUCOSE DEVICE Routine 03/26/2025 8 :20 AM CDT ECG 12-LEAD Routine 03/26/2025 8:16 AM CDT TRANSFUSE PLASMA Timed 03/26/2025 8:05 AM CDT TRANSTHORACIC ECHO (TTE) COMPLETE W DOPPLER/CF W CONTRAST Routine 03/26/2025 7:52 AM CDT POC BLOOD GAS AND CHEMISTRIES, ARTERIAL Routine 03/26/2025 7:49 AM CDT TRANSFUSE RED BLOOD CELLS Timed 03/26/2025 7:30 AM CDT PREPARE RBC STAT 03/26/2025 7:13 AM CDT PREPARE PLASMA STAT 03/26/2025 7:12 AM CDT PREPARE PLASMA STAT 03/26/2025 7:01 AM CDT PREPARE RBC STAT 03/26/2025 7:01 AM CDT XR CHEST 1 VIEW ED Urgent/IP Urgent 03/26/2025 6:34 AM CDT DIFFERENTIAL AUTO Routine 03/26/2025 6:0 0 AM CDT EGFR STAT 03/26/2025 6:00 AM CDT BLOOD GAS, ARTERIAL STAT 03/26/2025 6 :00 AM CDT BASIC METABOLIC PANEL STAT 03/26/2025 6:00 AM CDT PROTIME-INR STAT 03/26/2025 6:00 AM CDT CBC WITH AUTO DIFFERENTIAL Routine 03/26/2025 6:00 AM CDT CRITICAL CARE Routine 03/26/2025 5:33 AM CDT S/P TAVR (transcatheter aortic valve replacement) VASCULAR ACCESS US GUIDANCE Routine 03/26/2025 5:23 AM CDT PERIPHERAL ANGIOPLASTY Routine 03/26/2025 5:23 AM CDT REVAS ENDOVASILIAC W STNT [id number] Routine 03/26/2025 5:23 AM CDT PERIPHERAL RUN OFF CATH Routine 03/26/2025 5:23 AM CDT POC BLOOD GAS AND CHEMISTRIES, ARTERIAL Routine 03/26/2025 4:45 AM CDT PREPARE PLASMA STAT 03/26/2025 4:24 AM CDT POC BLOOD GAS AND CHEMISTRIES, ARTERIAL Routine 03/26/2025 4:14 AM CDT PREPARE RBC Routine 03/26/2025 3:27 AM CDT PREPARE RBC Routine 03/26/2025 3:25 AM CDT CO INSJ NON-TUNNELED CENTRAL VENOUS CATH AGE 5 YR/> Routine 03/26/2025 3:13 AM CDT S/P TAVR (transcatheter aortic valve replacement) PREPARE PLASMA STAT 03/26/2025 3:10 AM CDT MODERATE SEDATION 03/26/2025 3:0 5 AM CDT STEMI ARTERIOGRAM AORTA ILIAC - FEMORAL 03/26/2025 3:05 AM CDT STEMI CO ARTL CATHJ/CANNULJ MNTR/TRANSFUSION SPX PRQ Routine 03/26/2025 3:00 AM CDT Hemorrhagic shock (HCC) INTUBATION Routine 03/26/2025 3:00 AM CDT Hemorrhagic shock (HCC) TRANSFUSE RED BLOOD CELLS Timed 03/26/2025 2:57 AM CDT PREPARE RBC Routine 03/26/2025 2:56 AM CDT TRANSFUSE RED BLOOD CELLS Timed 03/26/2025 2:54 AM CDT TYPE AND SCREEN Timed 03/26/2025 2:48 AM CDT PREPARE RBC Routine 03/26/2025 2:43 AM CDT TRANSFUSE RED BLOOD CELLS Timed 03/26/2025 2:35 AM CDT APTT Routine 03/26/2025 2:27 AM CDT PROTIME-INR Routine 03/26/2025 2:27 AM CDT EGFR Routine 03/26/2025 2:25 AM CDT PRO B-TYPE NATRIURETIC PEPTIDE Routine 03/26/2025 2:25 AM CDT COMPREHENSIVE METABOLIC PANEL Routine 03/26/2025 2:25 AM CDT MAGNESIUM Routine 03/26/2025 2:25 AM CDT POC BLOOD GAS AND CHEMISTRIES, VENOUS Routine 03/26/2025 2:18 AM CDT TRANSFUSE RED BLOOD CELLS Timed 03/26/2025 2:18 AM CDT PREPARE RBC STAT 03/26/2025 2:15 AM CDT CLINICAL PATHOLOGY REPORT Routine 03/26/2025 2:12 AM CDT PREPARE RBC Routine 03/26/2025 2:08 AM CDT HEMOGLOBIN AND HEMATOCRIT Timed 03/26/2025 1:59 AM CDT POCT GLUCOSE DEVICE Routine 03/26/2025 1 :52 AM CDT CRITICAL CARE Routine 03/25/2025 9:09 PM CDT Aortic stenosis, severe S/P TAVR (transcatheter aortic valve replacement) POCT GLUCOSE DEVICE Routine 03/25/2025 8 :45 PM CDT HEMOGLOBIN AND HEMATOCRIT Timed 03/25/2025 8:25 PM CDT POCT GLUCOSE DEVICE Routine 03/25/2025 5 :02 PM CDT HEMOGLOBIN AND HEMATOCRIT Timed 03/25/2025 4:31 PM CDT CRITICAL CARE Routine 03/25/2025 3:40 PM CDT S/P TAVR (transcatheter aortic valve replacement) POCT GLUCOSE DEVICE Routine 03/25/2025 3 :18 PM CDT XR CHEST 1 VIEW Routine 03/25/2025 11:27 AM CDT POCT GLUCOSE DEVICE Routine 03/25/2025 10:37 AM CDT TRANSCATHETER AORTIC VALVE REPLACEMENT (TAVR) OPEN FEMORAL ART APPROACH Routine 03/25/2025 10:10 AM CDT Aortic stenosis, severe POCT ACTIVATED CLOTTING TIME, HIGH RANGE Routine 03/25/2025 8:59 AM CDT POCT GLUCOSE DEVICE Routine 03/25/2025 8 :53 AM CDT POCT ACTIVATED CLOTTING TIME, HIGH RANGE Routine 03/25/2025 8:51 AM CDT B CHECK SAMPLE STAT 03/25/2025 7:10 AM CDT PROTIME-INR STAT 03/25/2025 7:02 AM CDT POTASSIUM, WHOLE BLOOD STAT 03/25/2025 7:02 AM CDT PREPARE RBC STAT 03/25/2025 6:49 AM CDT POCT GLUCOSE DEVICE Routine 03/25/2025 6 :31 AM CDT ECG 12-LEAD Routine 03/19/2025 2:08 PM CDT Pre-operative exam XR CHEST PA LATERAL 2 VIEWS Schedule Routine, Read Routine (OP Routine) 03/19/2025 1:53 PM CDT Pre-operative exam EGFR Routine 03/19/2025 1:47 PM CDT Pre-operative exam DIFFERENTIAL AUTO Routine 03/19/2025 1:4 7 PM CDT Pre-operative exam TYPE AND SCREEN Routine 03/19/2025 1:47 PM CDT Pre-operative exam CBC WITH AUTO DIFFERENTIAL Routine 03/19/2025 1:47 PM CDT Pre-operative exam COMPREHENSIVE METABOLIC PANEL Routine 03/19/2025 1:47 PM CDT Pre-operative exam PRO B-TYPE NATRIURETIC PEPTIDE Routine 03/19/2025 1:47 PM CDT Pre-operative exam PROTIME-INR Routine 03/19/2025 1:47 PM CDT Pre-operative exam PAF (paroxysmal atrial fibrillation) (HCC) APTT Routine 03/19/2025 1:47 PM CDT Pre-operative exam Chronic anticoagulation HEMOGLOBIN A1C Routine 03/19/2025 1:47 PM CDT Pre-operative exam Type 2 diabetes mellitus with stage 3 chronic kidney disease, with long-term current use of insulin, unspecified whether stage 3a or 3b CKD (HCC) US CAROTIDS DUPLEX BILATERAL Schedule Routine, Read Routine (OP Routine) 03/01/2025 10:46 AM CDT Severe aortic stenosis Dizziness CT TAVR Schedule Routine, Read Routine (OP Routine) 03/01/2025 10:08 AM CDT Severe aortic stenosis SCREENING MAMMOGRAM BILATERAL W KANE Schedule Routine, Read Routine (OP Routine) 04/17/2024 12:31 PM CDT Breast cancer screening by mammogram from Last 3 Months or Most Recently Relevant to Health Maintenance Results * POCT glucose (05/22/2025 8:32 AM CDT) Glucose, POC 196 70 - 199 mg/dL Blood 05/22/2025 8:32 AM CDT 05/22/2025 8:32 AM CDT Jose Enrique Garcia MD LAB POCT ORDERABLES - Caitlin NUR Final Result [facility] Department [place] [address] * Urinalysis reflex to microscopic and culture Urine, bladder (05/22/2025 5:35 AM CDT) Color, ur Yellow Yellow Clarity, ur Clear Clear [facility] Specific gravity, ur 1.019 1.003 - 1.030 [facility] pH, urine 5.5 [facility] Comment: Interpretive Data U rine pH is affected by diet, medications, systemic acid-base disturbances, and renal tubular function. pH may affect urinary stone formation. For example, urine pH below 6.0 may help reduce the tendency for calcium phosphate stones and pH greater than 6.0 may reduce the tendency for uric acid stone formation. Source: [facility] [employer] Current Interpretive Data was last revised on 2017 Protein, ur ql Negative Negative [facility] Glucose, ur ql Negative Negative [facility] Ketones, ur Negative Negative [facility] Bilirubin, ur Negative Negative [facility] Blood, ur Negative Negative [facility] Urobilinogen, ur <2.0 <2.0 mg/dL [facility] Nitrite, ur Negative Negative [facility] Leukocyte esterase, ur Negative Negative [facility] UA reflex comment Reflex conditions for microscopic UA and culture not met. [facility] Urine, bladder 05/22/2025 5: 35 AM CDT 05/22/2025 5:43 AM CDT us Aroldo Cerna MD LAB MICROBIOLOGY - GENERAL ORDERABLES Final Result [facility] Department [place] [address] * eGFR (05/22/2025 5:25 AM CDT) eGFR 63 >=60 mL/min/1. 73 m2 Comment: Interpretive Data Reference Interval Normal >/= 90 mL/min/1.73m2 Mildly decreased* 60 - 89 mL/min/1.73m2 Mildly to moderately decreased 45 - 59 mL/min/1.73m2 Moderately to severely decreased 30 - 44 mL/min/1.73m2 Severely decreased 15 - 29 mL/min/1.73m2 Kidney Failure < 15 mL/min/1.73m2 *Relative to young adult level Estimated glomerular filtration rate is determined by the 2020 CKD-EPI equation recommended by the National Kidney Foundation (A Unifying Approach to GFR Estimation: Recommendations of the NKF-ASK Task Force on Reassessing the Inclusion of Race in Diagnosing Kidney Disease, JASN 202). The CKD-EPI equation should not be used for patients with unstable renal function and has not been validated in children and those over 70. Current interpretive data was last reviewed 2021. Blood 05/22/2025 5:25 AM CDT 05/22/2025 5:32 AM CDT us Nataliya Jhaveri MD LAB BLOOD ORDERABLES Final Result [facility] Department [place] [address] * Differential, auto (05/22/2025 5:25 AM CDT) Neutrophil abs 3.29 1.50 - 6.50 K/cumm Imm gran abs 0.05 0.00 - 0.10 K/cumm [facility] Lymphocyte abs 2.26 0.80 - 3.30 K/cumm [facility] Monocyte abs 0.64 0.20 - 0.80 K/cumm [facility] Eosinophil abs 0.23 0.00 - 0.50 K/cumm [facility] Basophil abs 0.06 0.00 - 0.10 K/cumm [facility] Neutrophil pct 50.4 % [facility] Comment: Interpretive Data Percent cell count reference ranges are not reported, since discordance with absolute values may lead to misinterpretation of CBC data. Current Interpretive Data was last revised on 2018. Imm gran pct 0.8 % [facility] Comment: Interpretive Data Percent cell count reference ranges are not reported, since discordance with absolute values may lead to misinterpretation of CBC data. Current Interpretive Data was last revised on 2018. Lymphocyte pct 34.6 % [facility] Comment: Interpretive Data Percent cell count reference ranges are not reported, since discordance with absolute values may lead to misinterpretation of CBC data. Current Interpretive Data was last revised on 2018. Monocyte pct 9.8 % [facility] Comment: Interpretive Data Percent cell count reference ranges are not reported, since discordance with absolute values may lead to misinterpretation of CBC data. Current Interpretive Data was last revised on 2018. Eosinophil pct 3.5 % [facility] Comment: Interpretive Data Percent cell count reference ranges are not reported, since discordance with absolute values may lead to misinterpretation of CBC data. Current Interpretive Data was last revised on 2018. Basophil pct 0.9 % [facility] Comment: Interpretive Data Percent cell count reference ranges are not reported, since discordance with absolute values may lead to misinterpretation of CBC data. Current Interpretive Data was last revised on 2018. Blood 05/22/2025 5:25 AM CDT 05/22/2025 5:32 AM CDT us Nataliya Jhaveri MD LAB BLOOD ORDERABLES Final Result [facility] Department [place] [address] * (ABNORMAL) CBC with auto differential (05/22/2025 5:25 AM CDT) WBC 6.53 3.80 - 9.90 K/cumm Hgb 10.7(L) 11.9 - 15.5 g/dL [facility] Hct 34.4(L) 35.6 - 45.5 % [facility] Plt 287 150 - 400 K/cumm [facility] MPV 8.7(L) 9.1 - 12.3 fL [facility] RBC 3.54(L) 3.90 - 5.20 M/cumm [facility] MCV 97.2(H) 81.3 - 96.4 fL [facility] MCH 30.2 27.1 - 33.3 pg [facility] MCHC 31.1(L) 32.3 - 35.7 g/dL [facility] RDW CV 16.3(H) 11.1 - 14.9 % [facility] RDW SD 58.2(H) 35.7 - 48.1 fL [facility] NRBC abs 0.00 0.00 - 0.01 K/cumm [facility] Blood 05/22/2025 5:25 AM CDT 05/22/2025 5:32 AM CDT Nataliya Jhaveri MD LAB BLOOD ORDERABLES Final Result Performing Organization Address City/[facility] Co de Phone Number [facility] [employer] [place] [address] * Phosphorus (05/22/2025 5:25 AM CDT) Pathologist [facility] Phosphorus, pl 4.0 2.3 - 4.5 mg/dL Blood 05/22/2025 5:25 AM CDT 05/22/2025 5:32 AM CDT Nataliya Jhaveri MD LAB BLOOD ORDERABLES Final Result Performing Organization Address [facility] [place] [place] [address] * Magnesium (05/22/2025 5:25 AM CDT) [facility] Magnesium 1.8 1.4 - 2.5 mg/dL Blood 05/22/2025 5:25 AM CDT 05/22/2025 5:32 AM CDT Nataliya Jhaveri MD LAB BLOOD ORDERABLES Final Result Performing Organization Address City/[facility] [place] [place] [address] * (ABNORMAL) Basic metabolic panel (05/22/2025 5:25 AM CDT) Pathologist [facility] Sodium 140 135 - 145 mmol/L Potassium, pl 3.5 3.3 - 4.9 mmol/L [facility] Chloride 98 97 - 110 mmol/L [facility] CO2 32 22 - 32 mmol/L [facility] Anion gap 10 2 - 15 mmol/L [facility] BUN 13 6 - 25 mg/dL [facility] Creatinine 0.95 0.60 - 1.10 mg/dL [facility] Glucose 201(H) 70 - 199 mg/dL [facility] Comment: Interpretive Data Fasting glucose >/= 126 mg/dl is diagnostic for diabetes. Fasting is defined as no caloric intake for at least 8 hours. Fasting glucose between 100 mg/dl to 125 mg/dl is diagnostic of prediabetes. In a patient with classic symptoms of hyperglycemia or hyperglycemic crisis, a random glucose >/= 200 mg/dl is diagnostic for diabetes. In the absence of unequivocal hyperglycemia, results should be confirmed by repeat testing. The classification and Diagnosis of Diabetes Diabetes Care 2021; 46: S19-S40. Current interpretive data was last revised 2022. Calcium 8.6 8.5 - 10.3 mg/dL [facility] Blood 05/22/2025 5:25 AM CDT 05/22/2025 5:32 AM CDT us Nataliya Jhaveri MD LAB BLOOD ORDERABLES Final Result [facility] Department [place] [employer] [place] [address] * (ABNORMAL) POCT glucose (05/21/2025 10:55 PM CDT) Glucose, POC 310(H) 70 - 199 mg/dL Blood 05/21/2025 10:5 5 PM CDT 05/21/2025 10:55 PM CDT us Jose Enrique Garcia MD LAB POCT ORDERABLES - D LIUDMILA Final Result [facility] Department [place] [employer] [place] [address] * POCT glucose (05/21/2025 7:12 PM CDT) Glucose, POC 159 70 - 199 mg/dL Blood 05/21/2025 7:12 PM CDT 05/21/2025 7:12 PM CDT us Jose Enrique Garcia MD LAB POCT ORDERABLES - D EVICE Final Result Performing Organization Address [facility] de Phone Number [facility] [employer] [place] [address] * POCT glucose (05/21/2025 11:50 AM CDT) Glucose, POC 115 70 - 199 mg/dL Blood 05/21/2025 11:5 0 AM CDT 05/21/2025 11:50 AM CDT Aroldo Cerna MD LAB POCT ORDERABLES - DEVIC E Final Result Performing Organization Address [facility] de Phone Number [facility] [employer] [place] [address] * POCT glucose (05/21/2025 8:03 AM CDT) Glucose, POC 143 70 - 199 mg/dL Blood 05/21/2025 8:03 AM CDT 05/21/2025 8:03 AM CDT us Nataliya Jhaveri MD LAB POCT ORDERABLES - DEVIC E Final Result Performing Organization Address [facility] de Phone Number [facility] [employer] [place] [address] * POCT glucose (05/21/2025 4:43 AM CDT) Glucose, POC 156 70 - 199 mg/dL Blood 05/21/2025 4:43 AM CDT 05/21/2025 4:43 AM CDT us Ganga Botello MD PhD LAB POCT ORDERABLE S - DEVICE Final Result [facility] [place] [employer] [place] [address] * POCT glucose (05/20/2025 9:00 PM CDT) Glucose, POC 141 70 - 199 mg/dL Blood 05/20/2025 9:00 PM CDT 05/20/2025 9:00 PM CDT Chaz Roberts MD LAB POCT ORDERABLES - DEV ICE Final Result Performing Organization Address [facility] Co de Phone Number [facility] Department [place] [employer] [place] [address] * CT Chest Abdomen Pelvis W Contrast (05/20/2025 6:57 PM CDT) Anatomical Region Laterality Modality Body N/A Computed Tomogra phy 05/20/2025 7:19 PM CDT Impressions 05/20/2025 8:05 PM CDT 1. Chronic organizing right retroperitoneal hematoma has decreased in size from March 2025. Though examination is somewhat limited by lack of intravenous contrast, there is no evidence of active bleed or superimposed infection. 2. Chronic right small pleural effusion. 3. Unchanged right middle lobe arteriovenous malformation without evidence of hemorrhage. ADDENDUM - This addendum is being placed on the report for a time dependent finding on a patient who is still in the emergency room (3B). There is an apparent filling defect in the left common femoral vein extending to the left superficial femoral vein, which may represent a deep venous thrombosis. Alternatively, this may represent mixing artifact. Recommend correlation with lower extremity Doppler.. These findings were communicated to Dr. Littlejohn by Jam Temple M.D. immediately upon identification of the findings at readout at 05/20/2025 7:36 PM. Dictated by: Jam Temple M.D. The radiology attending physician has personally reviewed this study, and had reviewed and/or edited this written report and agrees with it. Electronically signed by: Solange Trinidad M.D. Narrative 05/20/2025 8:05 PM CDT EXAMINATION: Computed tomography of the chest, abdomen and pelvis with intravenous contrast HISTORY: Intermittent upper abdominal pain in this patient with known retroperitoneal hematoma. TECHNIQUE: Transaxial computed tomographic images of the chest, abdomen and pelvis were obtained with intravenous contrast according to the standard protocol after the uneventful administration of 93 mL Opti-Ray 350 intravenous contrast. COMPARISON: 04/11/2025. FINDINGS: Chest: Normal thyroid gland. No worsening axillary, supraclavicular or mediastinal lymphadenopathy. Scattered subcentimeter pericardiophrenic nodes are unchanged in size. Heart size is unchanged. Transcatheter aortic valve replacement. Three-vessel coronary artery calcification versus stents. Thoracic aorta and main pulmonary artery caliber are normal aortic arch thoracic calcifications. Pulmonary artery is unchanged in caliber. Chronic right small pleural effusion.. Passive atelectasis of the right right lung base. There is a right middle lobe arteriovenous malformation, unchanged from 04/11/2025. There is minimal peripheral and basilar reticulation that is unchanged and may represent an interstitial lung abnormality. No pneumothorax, pneumonia, left effusion, edema, or hemorrhage. No filling defects within the trachea. Multiple healing, now chronic right rib fractures. Abdomen/Pelvis Right retroperitoneal hematoma has decreased in size measuring 12.6 x 13.9 x 21.8 previously 17.0 x 16.7 x 21 cm. Hyperdense material throughout the hematoma represents variable density blood products. There is right retroperitoneal fascial thickening, consistent with evolving fibrous tissue. Right lower quadrant stranding. Otherwise, liver is unchanged in appearance with multiple hypoattenuating lesions which are too small to characterize. Spleen, pancreas, adrenal glands, kidneys and the pancreas are unchanged. Technically indeterminate cyst in the right lower pole/interpolar region likely represent a hemorrhagic/proteinacious cyst. Atrophic left kidney. There is no hydroureter in either kidney. Chronic bladder wall thickening, possibly due to inflammation/chronic outlet obstruction. Fat necrosis in the space of Retzius. Mesenteric stranding is unchanged. Inferior vena cava filter is in place. A right external iliac stent is in place. No suspicious osseous lesion. Grade 1 anterolisthesis in L4-L5. Procedure Note Solange Trinidad MD - 05/20/2025 EXAMINATION: Computed tomography of the chest, abdomen and pelvis with intravenous contrast HISTORY: Intermittent upper abdominal pain in this patient with known retroperitoneal hematoma. TECHNIQUE: Transaxial computed tomographic images of the chest, abdomen and pelvis were obtained with intravenous contrast according to the standard protocol after the uneventful administration of 93 mL Opti-Ray 350 intravenous contrast. COMPARISON: 04/11/2025. FINDINGS: Chest: Normal thyroid gland. No worsening axillary, supraclavicular or mediastinal lymphadenopathy. Scattered subcentimeter pericardiophrenic nodes are unchanged in size. Heart size is unchanged. Transcatheter aortic valve replacement. Three-vessel coronary artery calcification versus stents. Thoracic aorta and main pulmonary artery caliber are normal aortic arch thoracic calcifications. Pulmonary artery is unchanged in caliber. Chronic right small pleural effusion.. Passive atelectasis of the right right lung base. There is a right middle lobe arteriovenous malformation, unchanged from 04/11/2025. There is minimal peripheral and basilar reticulation that is unchanged and may represent an interstitial lung abnormality. No pneumothorax, pneumonia, left effusion, edema, or hemorrhage. No filling defects within the trachea. Multiple healing, now chronic right rib fractures. Abdomen/Pelvis Right retroperitoneal hematoma has decreased in size measuring 12.6 x 13.9 x 21.8 previously 17.0 x 16.7 x 21 cm. Hyperdense material throughout the hematoma represents variable density blood products. There is right retroperitoneal fascial thickening, consistent with evolving fibrous tissue. Right lower quadrant stranding. Otherwise, liver is unchanged in appearance with multiple hypoattenuating lesions which are too small to characterize. Spleen, pancreas, adrenal glands, kidneys and the pancreas are unchanged. Technically indeterminate cyst in the right lower pole/interpolar region likely represent a hemorrhagic/proteinacious cyst. Atrophic left kidney. There is no hydroureter in either kidney. Chronic bladder wall thickening, possibly due to inflammation/chronic outlet obstruction. Fat necrosis in the space of Retzius. Mesenteric stranding is unchanged. Inferior vena cava filter is in place. A right external iliac stent is in place. No suspicious osseous lesion. Grade 1 anterolisthesis in L4-L5. IMPRESSION: 1. Chronic organizing right retroperitoneal hematoma has decreased in size from March 2025. Though examination is somewhat limited by lack of intravenous contrast, there is no evidence of active bleed or superimposed infection. 2. Chronic right small pleural effusion. 3. Unchanged right middle lobe arteriovenous malformation without evidence of hemorrhage. ADDENDUM - This addendum is being placed on the report for a time dependent finding on a patient who is still in the emergency room (3B). There is an apparent filling defect in the left common femoral vein extending to the left superficial femoral vein, which may represent a deep venous thrombosis. Alternatively, this may represent mixing artifact. Recommend correlation with lower extremity Doppler.. These findings were communicated to Dr. Littlejohn by Jam Temple M.D. immediately upon identification of the findings at readout at 05/20/2025 7:36 PM. Dictated by: Jam Temple M.D. The radiology attending physician has personally reviewed this study, and had reviewed and/or edited this written report and agrees with it. Electronically signed by: Solange Trinidad M.D. Eron Jacques MD IMG CT PROCEDURES Final Result * Troponin I high-sensitivity 2-hour (05/20/2025 6:25 PM CDT) Trop I hs 7 <=17 ng/L Comment: Interpretive Data For further hscTnI resources including the diagnostic algorithm and an aid in interpretation, copy and paste this link: [email or web address]/show/[email or web address] Current Interpretive Data last revised 2020. Trop I hs delta -1 ng/L [facility] Trop I hs interp Insignificant [facility] Blood 05/20/2025 6:25 PM CDT 05/20/2025 6:58 PM CDT Eron Jacques MD LAB BLOOD ORDERABLES Final Res ult [facility] Department [place] [address] * ECG 12-LEAD (05/20/2025 4:39 PM CDT) Narrative [facility] - 05/20/2025 4:39 PM CDT Francisco Cox MD 05/20/2025 4:39 PM ECG 12 lead Date/Time: 05/20/2025 4:39 PM Performed by: Francisco Cox MD Authorized by: Marquise Jovel MD PhD Comments: Electrocardiogram from 4:28 p.m. manifest normal sinus rhythm at a rate 75; prolonged first-degree CO interval with first-degree AV block and 0.23, normal QRS and normal QTC intervals; normal P, R, T-wave axis; no evidence of atrial enlargement or ventricular hypertrophy; normal ST segments and T-waves without evidence of active myocardial ischemia; poor R-wave progression in the precordium suggestive of prior anterior infarction. Francisco Cox MD ECG ORDERABLES Final R esult Performing Organization Address City/[facility] Co de Phone Number [facility] * Troponin I high-sensitivity series (baseline, 2hr, 4hr, 6hr) (05/20/2025 4:29 PM CDT) Pathologist [facility] Trop I hs 8 <=17 ng/L Comment: Interpretive Data For further hscTnI resources including the diagnostic algorithm and an aid in interpretation, copy and paste this link: [email or web address].testcatalog.org/show/[email or web address] Current Interpretive Data last revised 2020. Blood 05/20/2025 4:29 PM CDT 05/20/2025 4:48 PM CDT Francisco Cox MD LAB BLOOD ORDERABLES Fi nal Result Performing Organization Address City/[facility] Co de Phone Number [facility] Department [place] [address] * eGFR (05/20/2025 4:29 PM CDT) Pathologist [facility] eGFR 75 >=60 mL/min/1. 73 m2 Comment: Interpretive Data Reference Interval Normal >/= 90 mL/min/1.73m2 Mildly decreased* 60 - 89 mL/min/1.73m2 Mildly to moderately decreased 45 - 59 mL/min/1.73m2 Moderately to severely decreased 30 - 44 mL/min/1.73m2 Severely decreased 15 - 29 mL/min/1.73m2 Kidney Failure < 15 mL/min/1.73m2 *Relative to young adult level Estimated glomerular filtration rate is determined by the 2020 CKD-EPI equation recommended by the National Kidney Foundation (A Unifying Approach to GFR Estimation: Recommendations of the NKF-ASK Task Force on Reassessing the Inclusion of Race in Diagnosing Kidney Disease, JASN 202). The CKD-EPI equation should not be used for patients with unstable renal function and has not been validated in children and those over 70. Current interpretive data was last reviewed 2021. Blood 05/20/2025 4:29 PM CDT 05/20/2025 4:48 PM CDT us Francisco Cox MD LAB BLOOD ORDERABLES Fi nal Result [facility] Department [place] [address] * Differential, auto (05/20/2025 4:29 PM CDT) Pathologist [facility] Neutrophil abs 3.65 1.50 - 6.50 K/cumm Imm gran abs 0.05 0.00 - 0.10 K/cumm [facility] Lymphocyte abs 2.66 0.80 - 3.30 K/cumm [facility] Monocyte abs 0.67 0.20 - 0.80 K/cumm [facility] Eosinophil abs 0.12 0.00 - 0.50 K/cumm [facility] Basophil abs 0.06 0.00 - 0.10 K/cumm [facility] Neutrophil pct 50.6 % [facility] Comment: Interpretive Data Percent cell count reference ranges are not reported, since discordance with absolute values may lead to misinterpretation of CBC data. Current Interpretive Data was last revised on 2018. Imm gran pct 0.7 % [facility] Comment: Interpretive Data Percent cell count reference ranges are not reported, since discordance with absolute values may lead to misinterpretation of CBC data. Current Interpretive Data was last revised on 2018. Lymphocyte pct 36.9 % [facility] Comment: Interpretive Data Percent cell count reference ranges are not reported, since discordance with absolute values may lead to misinterpretation of CBC data. Current Interpretive Data was last revised on 2018. Monocyte pct 9.3 % [facility] Comment: Interpretive Data Percent cell count reference ranges are not reported, since discordance with absolute values may lead to misinterpretation of CBC data. Current Interpretive Data was last revised on 2018. Eosinophil pct 1.7 % [facility] Comment: Interpretive Data Percent cell count reference ranges are not reported, since discordance with absolute values may lead to misinterpretation of CBC data. Current Interpretive Data was last revised on 2018. Basophil pct 0.8 % [facility] Comment: Interpretive Data Percent cell count reference ranges are not reported, since discordance with absolute values may lead to misinterpretation of CBC data. Current Interpretive Data was last revised on 2018. Blood 05/20/2025 4:29 PM CDT 05/20/2025 4:49 PM CDT us Francisco Cox MD LAB BLOOD ORDERABLES Fi nal Result [facility] Department [place] [address] * (ABNORMAL) CBC with auto differential (05/20/2025 4:29 PM CDT) WBC 7.21 3.80 - 9.90 K/cumm Hgb 11.3(L) 11.9 - 15.5 g/dL [facility] Hct 34.1(L) 35.6 - 45.5 % [facility] Plt 344 150 - 400 K/cumm [facility] MPV 8.8(L) 9.1 - 12.3 fL [facility] RBC 3.62(L) 3.90 - 5.20 M/cumm [facility] MCV 94.2 81.3 - 96.4 fL [facility] MCH 31.2 27.1 - 33.3 pg [facility] MCHC 33.1 32.3 - 35.7 g/dL [facility] RDW CV 16.2(H) 11.1 - 14.9 % [facility] RDW SD 56.4(H) 35.7 - 48.1 fL [facility] NRBC abs 0.00 0.00 - 0.01 K/cumm [facility] Blood 05/20/2025 4:29 PM CDT 05/20/2025 4:49 PM CDT Francisco Cox MD LAB BLOOD ORDERABLES Fi nal Result Performing Organization Address City/[facility] Co de Phone Number [facility] [employer] [place] [address] * Lipase (05/20/2025 4:29 PM CDT) Pathologist [facility] Lipase 17 10 - 99 Units/L Blood 05/20/2025 4:29 PM CDT 05/20/2025 4:48 PM CDT Francisco Cox MD LAB BLOOD ORDERABLES Fi nal Result Performing Organization Address [facility] de Phone Number [facility] [place] [employer] [place] [address] * (ABNORMAL) Hemoglobin A1c (05/20/2025 4:29 PM CDT) Pathologist [facility] Hgb A1C 5.8(H) 4.0 - 5.6 % Estimated Average Glucose 120 mg/dL [facility] Comment: The ADA recommends reporting an estimated Average Glucose (eAG) with all Hemoglobin A1c results using the equation derived from a study of 507 normal and diabetic adults. Minority populations were underrepresented and children were not included. (Diabetes Care 2020; 43(S1): S66-S76). The eAG is not equivalent to a fasting glucose. Blood 05/20/2025 4:29 PM CDT 05/20/2025 4:52 PM CDT Narrative [facility] - 05/21/2025 9:11 AM CDT Reflex Nataliya Jhaveri MD LAB BLOOD ORDERABLES Final Result [facility] Department [place] [address] * (ABNORMAL) Comprehensive metabolic panel (05/20/2025 4:29 PM CDT) Sodium 138 135 - 145 mmol/L Potassium, pl 3.5 3.3 - 4.9 mmol/L [facility] Chloride 99 97 - 110 mmol/L [facility] CO2 30 22 - 32 mmol/L [facility] Anion gap 9 2 - 15 mmol/L [facility] BUN 9 6 - 25 mg/dL [facility] Creatinine 0.82 0.60 - 1.10 mg/dL [facility] Glucose 182 70 - 199 mg/dL [facility] Comment: Interpretive Data Fasting glucose >/= 126 mg/dl is diagnostic for diabetes. Fasting is defined as no caloric intake for at least 8 hours. Fasting glucose between 100 mg/dl to 125 mg/dl is diagnostic of prediabetes. In a patient with classic symptoms of hyperglycemia or hyperglycemic crisis, a random glucose >/= 200 mg/dl is diagnostic for diabetes. In the absence of unequivocal hyperglycemia, results should be confirmed by repeat testing. The classification and Diagnosis of Diabetes Diabetes Care 2021; 46: S19-S40. Current interpretive data was last revised 2022. Calcium 8.9 8.5 - 10.3 mg/dL [facility] Bilirubin, total 0.7 0.1 - 1.2 mg/dL [facility] Protein, pl 7.3 6.5 - 8.5 g/dL [facility] Albumin 3.3(L) 3.5 - 5.0 g/dL [facility] Alk phos 123 40 - 130 Units/L [facility] ALT 19 7 - 45 Units/L [facility] AST 27 10 - 45 Units/L [facility] Blood 05/20/2025 4:29 PM CDT 05/20/2025 4:48 PM CDT us Francisco Cox MD LAB BLOOD ORDERABLES Fi nal Result [facility] [place] [employer] [place] [address] * POCT glucose (05/20/2025 4:17 PM CDT) Glucose, POC 180 70 - 199 mg/dL Blood 05/20/2025 4:17 PM CDT 05/20/2025 4:17 PM CDT us Notinfile Unknown LAB POCT ORDERABLES - DEVICE F inal Result Performing Organization Address [facility] Co de Phone Number [facility] [place] [address] * CO CRITICAL CARE ILL/INJURED PATIENT INIT 30-74 MIN (05/20/2025 11:04 AM CDT) Narrative Francisco Cox MD - 05/20/2025 11:04 AM CDT Francisco Cox MD 05/22/2025 11:07 AM Critical Care Performed by: Francisco Cox MD Authorized by: Nataliya Jhaveri MD Critical care provider statement: As reflected in the history, physical exam, orders, notes, and/or MDM, I was personally present while the patient was critically ill and provided critical care services for 30 minutes, excluding time involved in separately billable procedures. 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 I ordered and reviewed test results and/or imaging studies. I spent time discussing the management and therapeutic options for this critically ill patient with the patient themselves or with the appropriate designated surrogate decision-maker. I spent time documenting in the medical record. us Nataliya Jhaveri MD IN CLINIC/BEDSIDE ORDERABLE S Final Result * POCT glucose (05/10/2025 12:37 PM CDT) Glucose, POC 182 70 - 199 mg/dL Blood 05/10/2025 12:3 7 PM CDT 05/10/2025 12:37 PM CDT Ebony Eden MD LAB POCT ORDERABLES - DEVICE Fi nal Result Performing Organization Address [facility] Co de Phone Number [facility] [place] [address] * POCT glucose (05/10/2025 8:47 AM CDT) Glucose, POC 150 70 - 199 mg/dL Blood 05/10/2025 8:47 AM CDT 05/10/2025 8:47 AM CDT Ebony Eden MD LAB POCT ORDERABLES - DEVICE Fi nal Result Performing Organization Address [facility] de Phone Number [facility] Department [place] [employer] [place] [address] * (ABNORMAL) POCT glucose (05/09/2025 8:14 PM CDT) Glucose, POC 327(H) 70 - 199 mg/dL Blood 05/09/2025 8:14 PM CDT 05/09/2025 8:14 PM CDT Ebony Eden MD LAB POCT ORDERABLES - DEVICE Fi nal Result Performing Organization Address [facility] Co de Phone Number [facility] Department [place] [address] * POCT glucose (05/09/2025 5:48 PM CDT) Glucose, POC 157 70 - 199 mg/dL Blood 05/09/2025 5:48 PM CDT 05/09/2025 5:48 PM CDT Ebony Eden MD LAB POCT ORDERABLES - DEVICE Fi nal Result Performing Organization Address City/[facility] [place] [place] [address] * POCT glucose (05/09/2025 12:12 PM CDT) Glucose, POC 154 70 - 199 mg/dL Blood 05/09/2025 12:1 2 PM CDT 05/09/2025 12:12 PM CDT Ebony Eden MD LAB POCT ORDERABLES - DEVICE Fi nal Result Performing Organization Address [facility] [place] [place] [address] * POCT glucose (05/09/2025 8:01 AM CDT) Glucose, POC 114 70 - 199 mg/dL Blood 05/09/2025 8:01 AM CDT 05/09/2025 8:01 AM CDT Ebony Eden MD LAB POCT ORDERABLES - DEVICE Fi nal Result Performing Organization Address [facility] [place] [address] * (ABNORMAL) POCT glucose (05/08/2025 7:43 PM CDT) Glucose, POC 233(H) 70 - 199 mg/dL Comment:Glu2: RN/MD Notified Glucose comment 1 Glu2: RN/MD Notified [facility] Blood 05/08/2025 7:43 PM CDT 05/08/2025 7:43 PM CDT Ebony Eden MD LAB POCT ORDERABLES - DEVICE Fi nal Result Performing Organization Address City/[facility] Co de Phone Number [facility] [place] [address] * POCT glucose (05/08/2025 5:15 PM CDT) Glucose, POC 164 70 - 199 mg/dL Blood 05/08/2025 5:15 PM CDT 05/08/2025 5:15 PM CDT Ebony Eden MD LAB POCT ORDERABLES - DEVICE Fi nal Result Performing Organization Address [facility] de Phone Number [facility] [place] [address] * (ABNORMAL) POCT glucose (05/08/2025 11:05 AM CDT) Glucose, POC 219(H) 70 - 199 mg/dL Blood 05/08/2025 11:0 5 AM CDT 05/08/2025 11:05 AM CDT Ebony Eden MD LAB POCT ORDERABLES - DEVICE Fi nal Result Performing Organization Address [facility] de Phone Number [facility] [place] [address] * POCT glucose (05/08/2025 8:26 AM CDT) Glucose, POC 145 70 - 199 mg/dL Blood 05/08/2025 8:26 AM CDT 05/08/2025 8:26 AM CDT Ebony Eden MD LAB POCT ORDERABLES - DEVICE Fi nal Result [facility] [place] [address] * (ABNORMAL) POCT glucose (05/08/2025 12:32 AM CDT) Glucose, POC 216(H) 70 - 199 mg/dL Blood 05/08/2025 12:3 2 AM CDT 05/08/2025 12:32 AM CDT Ebony Eden MD LAB POCT ORDERABLES - DEVICE Fi nal Result Performing Organization Address [facility] de Phone Number [facility] [place] [address] * eGFR (05/07/2025 8:54 PM CDT) eGFR 81 >=60 mL/min/1. 73 m2 Comment: Interpretive Data Reference Interval Normal >/= 90 mL/min/1.73m2 Mildly decreased* 60 - 89 mL/min/1.73m2 Mildly to moderately decreased 45 - 59 mL/min/1.73m2 Moderately to severely decreased 30 - 44 mL/min/1.73m2 Severely decreased 15 - 29 mL/min/1.73m2 Kidney Failure < 15 mL/min/1.73m2 *Relative to young adult level Estimated glomerular filtration rate is determined by the 2020 CKD-EPI equation recommended by the National Kidney Foundation (A Unifying Approach to GFR Estimation: Recommendations of the NKF-ASK Task Force on Reassessing the Inclusion of Race in Diagnosing Kidney Disease, JASN 2020). The CKD-EPI equation should not be used for patients with unstable renal function and has not been validated in children and those over 70. Current interpretive data was last reviewed 2021. Blood 05/07/2025 8:54 PM CDT 05/07/2025 10:17 PM CDT Andrew SWENSON LAB BLOOD ORDERABL ES Final Result Performing Organization Address [facility] Co de Phone Number [facility] [place] [address] * (ABNORMAL) Protime-INR (05/07/2025 8:54 PM CDT) [facility] PT 14.0(H) 9.7 - 13.0 sec INR 1.29(H) 0.90 - 1.20 [facility] Comment: Interpretive data Oral anticoagulant therapeutic ranges: Venous thromboembolism prophylaxis or treatment: 2.0-3.0 CARDIOLOGY Standard range: 2.0-3.0 High-intensity range: 2.5-3.5 Refer to indication-specific guidelines for appropriate target ranges for prosthetic heart valve replacement. Current interpretive data was last revised on 2019. Blood 05/07/2025 8:54 PM CDT 05/07/2025 9:36 PM CDT Andrew SWENSON LAB BLOOD ORDERABL ES Final Result Performing Organization Address City/[facility] Co de Phone Number [facility] Department [place] [address] * (ABNORMAL) CBC without differential (05/07/2025 8:54 PM CDT) [facility] WBC 6.08 3.80 - 9.90 K/cumm Hgb 9.5(L) 11.9 - 15.5 g/dL [facility] Hct 29.3(L) 35.6 - 45.5 % [facility] Plt 257 150 - 400 K/cumm [facility] MPV 9.1 9.1 - 12.3 fL [facility] RBC 3.09(L) 3.90 - 5.20 M/cumm [facility] MCV 94.8 81.3 - 96.4 fL [facility] MCH 30.7 27.1 - 33.3 pg [facility] MCHC 32.4 32.3 - 35.7 g/dL [facility] RDW CV 17.8(H) 11.1 - 14.9 % [facility] RDW SD 62.1(H) 35.7 - 48.1 fL [facility] NRBC abs 0.00 0.00 - 0.01 K/cumm [facility] Blood 05/07/2025 8:54 PM CDT 05/07/2025 9:38 PM CDT Tiffanie Roberts NP LAB BLOOD ORDERABLES Final Result [facility] [place] [address] * Magnesium (05/07/2025 8:54 PM CDT) [facility] Magnesium 1.6 1.4 - 2.5 mg/dL Blood 05/07/2025 8:54 PM CDT 05/07/2025 10:17 PM CDT Andrew Carroll PA LAB BLOOD ORDERABL ES Final Result Performing Organization Address City/[facility] de Phone Number [facility] [place] [address] * (ABNORMAL) Basic metabolic panel (05/07/2025 8:54 PM CDT) [facility] Sodium 135 135 - 145 mmol/L Potassium, pl 3.4 3.3 - 4.9 mmol/L [facility] Chloride 96(L) 97 - 110 mmol/L [facility] CO2 33(H) 22 - 32 mmol/L [facility] Anion gap 6 2 - 15 mmol/L [facility] BUN 13 6 - 25 mg/dL [facility] Creatinine 0.77 0.60 - 1.10 mg/dL [facility] Glucose 141 70 - 199 mg/dL [facility] Comment: Interpretive Data Fasting glucose >/= 126 mg/dl is diagnostic for diabetes. Fasting is defined as no caloric intake for at least 8 hours. Fasting glucose between 100 mg/dl to 125 mg/dl is diagnostic of prediabetes. In a patient with classic symptoms of hyperglycemia or hyperglycemic crisis, a random glucose >/= 200 mg/dl is diagnostic for diabetes. In the absence of unequivocal hyperglycemia, results should be confirmed by repeat testing. The classification and Diagnosis of Diabetes Diabetes Care 2021; 46: S19-S40. Current interpretive data was last revised 2022. Calcium 8.4(L) 8.5 - 10.3 mg/dL [facility] Blood 05/07/2025 8:54 PM CDT 05/07/2025 10:17 PM CDT Andrew SWENSON LAB BLOOD ORDERABL ES Final Result Performing Organization Address [facility] Co de Phone Number [facility] [place] [address] * POCT glucose (05/07/2025 8:16 PM CDT) Glucose, POC 147 70 - 199 mg/dL Blood 05/07/2025 8:16 PM CDT 05/07/2025 8:16 PM CDT Ebony Eden MD LAB POCT ORDERABLES - DEVICE Fi nal Result Performing Organization Address [facility] Co de Phone Number [facility] Department [place] [address] * POCT glucose (05/07/2025 4:48 PM CDT) Glucose, POC 125 70 - 199 mg/dL Blood 05/07/2025 4:48 PM CDT 05/07/2025 4:48 PM CDT Ebony Eden MD LAB POCT ORDERABLES - DEVICE Fi nal Result Performing Organization Address [facility] Co de Phone Number [facility] Department [place] [address] * POCT glucose (05/07/2025 2:55 PM CDT) Glucose, POC 150 70 - 199 mg/dL Blood 05/07/2025 2:55 PM CDT 05/07/2025 2:55 PM CDT us Ebony Eden MD LAB POCT ORDERABLES - DEVICE Fi nal Result [facility] Department [place] [address] * NM Hepatobiliary Imaging W MORPHINE (05/07/2025 2:12 PM CDT) Anatomical Region Laterality Modality Body N/A Nuclear Medicine 05/07/2025 2:56 PM CDT Impressions 05/07/2025 3:33 PM CDT Normal biliary imaging study. Dictated by: Liam Valladares M.D. ([place]) The radiology attending physician has personally reviewed this study, and had reviewed and/or edited this written report and agrees with it. Electronically signed by: Zaid Solomon MD, Ph.D Narrative 05/07/2025 3:33 PM CDT EXAMINATION: HEPATOBILIARY SCINTIGRAPHY DATE OF STUDY: 05/07/2025 RADIOPHARMACEUTICAL: 3.14 mCi Tc-99m mebrofenin i.v. HISTORY: 74-year-old female with right upper quadrant tenderness to pain on 05/06. Does not have pain at rest or with eating. Mildly elevated total bilirubin. Right upper quadrant ultrasound revealed a nonmobile stone at the gallbladder neck and elevated cystic artery velocity. The most recently obtained serum total bilirubin was 1.5 mg/dL on 05/06/2025. FINDINGS: Following intravenous administration of tracer, sequential abdominal images were obtained through 60 minutes. There is prompt, uniform accumulation of the tracer by the liver. There is normal filling of the intrahepatic ducts, common bile duct with normal excretion of the tracer into the duodenum. The gallbladder was not visualized Due to initial non-visualization of the gallbladder, morphine sulfate was administered by intravenous administration following completion of the initial set of dynamic images in order to cause contraction of the sphincter of Trino and facilitate filling of the gallbladder. After morphine administration, additional dynamic images were acquired for 30 minutes. There is tracer uptake present in the gallbladder. An additional lateral image was taken to confirm that the gallbladder is separate from the duodenum. Procedure Note Zaid Odonnell MD PhD - 05/07/2025 EXAMINATION: HEPATOBILIARY SCINTIGRAPHY DATE OF STUDY: 05/07/2025 RADIOPHARMACEUTICAL: 3.14 mCi Tc-99m mebrofenin i.v. HISTORY: 74-year-old female with right upper quadrant tenderness to pain on 05/06. Does not have pain at rest or with eating. Mildly elevated total bilirubin. Right upper quadrant ultrasound revealed a nonmobile stone at the gallbladder neck and elevated cystic artery velocity. The most recently obtained serum total bilirubin was 1.5 mg/dL on 05/06/2025. FINDINGS: Following intravenous administration of tracer, sequential abdominal images were obtained through 60 minutes. There is prompt, uniform accumulation of the tracer by the liver. There is normal filling of the intrahepatic ducts, common bile duct with normal excretion of the tracer into the duodenum. The gallbladder was not visualized Due to initial non-visualization of the gallbladder, morphine sulfate was administered by intravenous administration following completion of the initial set of dynamic images in order to cause contraction of the sphincter of Trino and facilitate filling of the gallbladder. After morphine administration, additional dynamic images were acquired for 30 minutes. There is tracer uptake present in the gallbladder. An additional lateral image was taken to confirm that the gallbladder is separate from the duodenum. IMPRESSION: Normal biliary imaging study. Dictated by: Liam Valladares M.D. (Ramanan) The radiology attending physician has personally reviewed this study, and had reviewed and/or edited this written report and agrees with it. Electronically signed by: Zaid Solomon MD, Ph.D Andrew SWENSON [facility] PROCEDURES Final Result * POCT glucose (05/07/2025 8:35 AM CDT) Glucose, POC 161 70 - 199 mg/dL Blood 05/07/2025 8:35 AM CDT 05/07/2025 8:35 AM CDT Ebony Eden MD LAB POCT ORDERABLES - DEVICE Fi nal Result Performing Organization Address [facility] [place] [place] [address] * C. difficile testing Stool (05/06/2025 10:24 PM CDT) Pathologist [facility] GDH Result Positive Negative Toxin Result Negative Negative [facility] C. diff result Negative, free toxin. Negative, free toxin [facility] C. diff interp GDH+/toxin- results almost never represent true C. difficile infection (CDI). Results may represent colonization with C. difficile without CDI, detection of a bacteria other than toxigenic C. difficile, or a false negative toxin assay. If there is a high index of suspicion for CDI, additional testing by PCR is available upon request. [facility] Stool 05/06/2025 10:2 4 PM CDT 05/06/2025 11:49 PM CDT Narrative [facility] - 05/07/2025 5:48 AM CDT Testing for C. difficile is not recommended within 4 days of a negative result, 10 days of a positive, or 24 hours after laxative administration. If this order is clinically indicated, contact the lab and enter the passcode to complete this order.->[id number] Andrew SWENSON LAB MICROBIOLOGY - GENERAL ORDERABLES Final Result Performing Organization Address [facility] Co de Phone Number [facility] Department [place] [address] * Stool culture Stool Rectum (05/06/2025 10:24 PM CDT) Pathologist [facility] Direct Specimen Exam Shiga Toxin Testing: Antigen detection assay for Shiga-toxin NEGATIVE for Shiga Toxin 1 and Shiga Toxin 2. Report Final Report: No growth of enteric bacterial pathogens [facility] Stool (Rectum) 05/06/2025 10 :24 PM CDT 05/06/2025 11:49 PM CDT Narrative [facility] - 05/10/2025 12:44 PM CDT Testing performed by [facility] ([phone]). Routine stool cultures include procedures to detect Salmonella, Shigella, Edwardsiella, Aeromonas, Pleisiomonas, Campylobacter, Yersinia, E. coli O157, and Shiga-like toxins. Vibrio is cultured only upon special request. If Vibrio is suspected, please call the laboratory at [phone]. Interpretive data was last updated February 21, 2017. us Andrew SWENSON LAB MICROBIOLOGY - GENERAL ORDERABLES Final Result Performing Organization Address City/[facility]/ZIP Co de Phone Number [facility] Department [place] [address] * (ABNORMAL) Infection Prevention VRE Culture Stool (05/06/2025 10:23 PM CDT) Report Final Report: Enterococcus species, vancomycin resistant (.) Organism ENTEROCOCCUS SPECIES, VANCOMYCIN RESISTANT [facility] Stool 05/06/2025 10:2 3 PM CDT 05/07/2025 5:41 AM CDT Narrative [facility] - 05/08/2025 1:20 PM CDT Surveillance culture for Infection Prevention purposes only; results indicate colonization, not infection requiring treatment. Testing performed by [facility] ([phone]). us Ebony Eden MD LAB MICROBIOLOGY - GENERAL IDALIA HANNA Final Result Performing Organization Address City/[facility]/ZIP Co de Phone Number [facility] Department [place] [employer] [place] [address] * eGFR (05/06/2025 9:32 PM CDT) eGFR 78 >=60 mL/min/1. 73 m2 Comment: Interpretive Data Reference Interval Normal >/= 90 mL/min/1.73m2 Mildly decreased* 60 - 89 mL/min/1.73m2 Mildly to moderately decreased 45 - 59 mL/min/1.73m2 Moderately to severely decreased 30 - 44 mL/min/1.73m2 Severely decreased 15 - 29 mL/min/1.73m2 Kidney Failure < 15 mL/min/1.73m2 *Relative to young adult level Estimated glomerular filtration rate is determined by the 2020 CKD-EPI equation recommended by the National Kidney Foundation (A Unifying Approach to GFR Estimation: Recommendations of the NKF-ASK Task Force on Reassessing the Inclusion of Race in Diagnosing Kidney Disease, JASN 2020). The CKD-EPI equation should not be used for patients with unstable renal function and has not been validated in children and those over 70. Current interpretive data was last reviewed 2021. Blood 05/06/2025 9:32 PM CDT 05/06/2025 10:26 PM CDT us Andrew SWENSON LAB BLOOD ORDERABL ES Final Result [facility] Department [place] [address] * (ABNORMAL) CBC without differential (05/06/2025 9:32 PM CDT) WBC 8.64 3.80 - 9.90 K/cumm Hgb 9.5(L) 11.9 - 15.5 g/dL [facility] Hct 29.3(L) 35.6 - 45.5 % [facility] Plt 254 150 - 400 K/cumm [facility] MPV 9.2 9.1 - 12.3 fL [facility] RBC 3.11(L) 3.90 - 5.20 M/cumm [facility] MCV 94.2 81.3 - 96.4 fL [facility] MCH 30.5 27.1 - 33.3 pg [facility] MCHC 32.4 32.3 - 35.7 g/dL [facility] RDW CV 17.6(H) 11.1 - 14.9 % [facility] RDW SD 60.2(H) 35.7 - 48.1 fL [facility] NRBC abs 0.00 0.00 - 0.01 K/cumm [facility] Blood 05/06/2025 9:32 PM CDT 05/06/2025 10:26 PM CDT Tiffanie Roberts NP LAB BLOOD ORDERABLES Final Result [facility] Department [place] [address] * (ABNORMAL) Comprehensive metabolic panel (05/06/2025 9:32 PM CDT) Sodium 135 135 - 145 mmol/L Potassium, pl 3.4 3.3 - 4.9 mmol/L [facility] Chloride 96(L) 97 - 110 mmol/L [facility] CO2 31 22 - 32 mmol/L [facility] Anion gap 8 2 - 15 mmol/L [facility] BUN 15 6 - 25 mg/dL [facility] Creatinine 0.80 0.60 - 1.10 mg/dL [facility] Glucose 170 70 - 199 mg/dL [facility] Comment: Interpretive Data Fasting glucose >/= 126 mg/dl is diagnostic for diabetes. Fasting is defined as no caloric intake for at least 8 hours. Fasting glucose between 100 mg/dl to 125 mg/dl is diagnostic of prediabetes. In a patient with classic symptoms of hyperglycemia or hyperglycemic crisis, a random glucose >/= 200 mg/dl is diagnostic for diabetes. In the absence of unequivocal hyperglycemia, results should be confirmed by repeat testing. The classification and Diagnosis of Diabetes Diabetes Care 202; 46: S19-S40. Current interpretive data was last revised 2022. Calcium 8.4(L) 8.5 - 10.3 mg/dL [facility] Bilirubin, total 1.5(H) 0.1 - 1.2 mg/dL [facility] Protein, pl 6.3(L) 6.5 - 8.5 g/dL [facility] Albumin 2.3(L) 3.5 - 5.0 g/dL [facility] Alk phos 99 40 - 130 Units/L [facility] ALT 15 7 - 45 Units/L [facility] AST 80(H) 10 - 45 Units/L [facility] Blood 05/06/2025 9:32 PM CDT 05/06/2025 10:26 PM CDT us Andrew SWENSON LAB BLOOD ORDERABL ES Final Result Performing Organization Address [facility] de Phone Number [facility] [place] [employer] [place] [address] * (ABNORMAL) POCT glucose (05/06/2025 7:29 PM CDT) Glucose, POC 234(H) 70 - 199 mg/dL Blood 05/06/2025 7:29 PM CDT 05/06/2025 7:29 PM CDT us Cindy Nguyen MD LAB POCT ORDERABLES - DEVICE Final Result Performing Organization Address [facility] de Phone Number [facility] [place] [address] * POCT glucose (05/06/2025 5:52 PM CDT) Glucose, POC 149 70 - 199 mg/dL Comment:Glu2: RN/MD Notified Glucose comment 1 Glu2: RN/MD Notified [facility] Blood 05/06/2025 5:52 PM CDT 05/06/2025 5:52 PM CDT us Cindy gNuyen MD LAB POCT ORDERABLES - DEVICE Final Result Performing Organization Address [facility] [place] [address] * (ABNORMAL) Urinalysis reflex to microscopic and culture Urine, bladder (05/06/2025 4:35 PM CDT) Color, ur Yellow Yellow Clarity, ur Cloudy(A) Clear [facility] Specific gravity, ur 1.012 1.003 - 1.030 [facility] pH, urine 6.0 [facility] Comment: Interpretive Data U rine pH is affected by diet, medications, systemic acid-base disturbances, and renal tubular function. pH may affect urinary stone formation. For example, urine pH below 6.0 may help reduce the tendency for calcium phosphate stones and pH greater than 6.0 may reduce the tendency for uric acid stone formation. Source: [facility] Current Interpretive Data was last revised on 2017 Protein, ur ql 1+(A) Negative [facility] Glucose, ur ql Negative Negative [facility] Ketones, ur Negative Negative [facility] Bilirubin, ur Negative Negative [facility] Blood, ur 2+(A) Negative [facility] Urobilinogen, ur <2.0 <2.0 mg/dL [facility] Nitrite, ur Negative Negative [facility] Leukocyte esterase, ur Negative Negative [facility] UA reflex comment Reflex to microscopic UA will be performed. [facility] Urine, bladder 05/06/2025 4: 35 PM CDT 05/06/2025 5:17 PM CDT Andrew SWENSON LAB MICROBIOLOGY - GENERAL ORDERABLES Final Result [facility] Department [place] [address] * (ABNORMAL) Urinalysis, microscopic only (05/06/2025 4:35 PM CDT) WBC, ur 0-5 0 - 5 /HPF RBC, ur 0-2 0 - 2 /HPF [facility] Epithelial cells, squamous, ur 11-20(A) 0 - 5 /HPF [facility] Comment:Suggestive of contam ination. Consider recollection by clean catch. Bacteria, ur Trace(A) [facility] Mucous, ur Present(A) [facility] Hyaline casts, ur 1-5 0 - 10 /LPF [facility] Culture Reflex Comment Reflex conditions for urine culture (WBC >10) not met. [facility] Urine, bladder 05/06/2025 4: 35 PM CDT 05/06/2025 5:17 PM CDT us Andrew SWENSON LAB URINE ORDERABL ES Final Result Performing Organization Address [facility] Co de Phone Number [facility] [place] [address] * POCT glucose (05/06/2025 4:16 PM CDT) Glucose, POC 143 70 - 199 mg/dL Comment:Glu2: RN/MD Notified Glucose comment 1 Glu2: RN/MD Notified [facility] Blood 05/06/2025 4:16 PM CDT 05/06/2025 4:16 PM CDT Cindy Nguyen MD LAB POCT ORDERABLES - DEVICE Final Result Performing Organization Address [facility] Co de Phone Number [facility] Department [place] [address] * POCT glucose (05/06/2025 3:00 PM CDT) Glucose, POC 140 70 - 199 mg/dL Comment:Glu2: RN/MD Notified Glucose comment 1 Glu2: RN/MD Notified [facility] Blood 05/06/2025 3:00 PM CDT 05/06/2025 3:00 PM CDT Cindy Nguyen MD LAB POCT ORDERABLES - DEVICE Final Result Performing Organization Address [facility] Co de Phone Number [facility] [place] [address] * US Abdomen Limited (05/06/2025 1:30 PM CDT) Anatomical Region Laterality Modality Abdomen N/A Ultrasound 05/06/2025 1:59 PM CDT Impressions 05/06/2025 4:45 PM CDT 1. There is a nonmobile stone at the gallbladder neck and elevated cystic artery velocity, suspicious for gallbladder inflammation of indeterminate chronicity. Recommend further evaluation of gallbladder with scintigraphy (HIDA scan). 2. Gallbladder sludge. Dictated by: Smooth Purdy M.D. The radiology attending physician has personally reviewed this study, and had reviewed and/or edited this written report and agrees with it. Electronically signed by: Huber Warner M.D., Ph.D Narrative 05/06/2025 4:45 PM CDT EXAMINATION: LIMITED ABDOMINAL SONOGRAM HISTORY: 34-year-old female with recent fever and abdominal pain COMPARISON: CT 04/11/2024 FINDINGS: Liver: The echotexture is normal. The echogenicity is normal. There is no surface nodularity. No focal solid lesions are visualized. Gallbladder: The gallbladder is normal in size. There is sludge and a nonmobile stone at the neck of the gallbladder. There is no gallbladder wall thickening. No pericholecystic fluid or sonographic Briggs sign. Cystic artery velocity is 50 cm/s. Bile Duct: There is no intrahepatic bile duct dilatation. The diameter of the common duct is 3 mm in the proximal segment and 6 mm in the mid segment and 2 mm in the distal segment. Right Kidney: There is no hydronephrosis in the visualized portions of the right kidney. Pancreas: The visualized portions of the pancreas demonstrate no focal lesions. Procedure Note Huber Warner MD PhD - 05/06/2025 EXAMINATION: LIMITED ABDOMINAL SONOGRAM HISTORY: 34-year-old female with recent fever and abdominal pain COMPARISON: CT 04/11/2024 FINDINGS: Liver: The echotexture is normal. The echogenicity is normal. There is no surface nodularity. No focal solid lesions are visualized. Gallbladder: The gallbladder is normal in size. There is sludge and a nonmobile stone at the neck of the gallbladder. There is no gallbladder wall thickening. No pericholecystic fluid or sonographic Briggs sign. Cystic artery velocity is 50 cm/s. Bile Duct: There is no intrahepatic bile duct dilatation. The diameter of the common duct is 3 mm in the proximal segment and 6 mm in the mid segment and 2 mm in the distal segment. Right Kidney: There is no hydronephrosis in the visualized portions of the right kidney. Pancreas: The visualized portions of the pancreas demonstrate no focal lesions. IMPRESSION: 1. There is a nonmobile stone at the gallbladder neck and elevated cystic artery velocity, suspicious for gallbladder inflammation of indeterminate chronicity. Recommend further evaluation of gallbladder with scintigraphy (HIDA scan). 2. Gallbladder sludge. Dictated by: Smooth Purdy M.D. The radiology attending physician has personally reviewed this study, and had reviewed and/or edited this written report and agrees with it. Electronically signed by: Huber Warner M.D., Ph.D Andrew SWENSON IMG US PROCEDURES Final Result * (ABNORMAL) POCT glucose (05/06/2025 11:11 AM CDT) Glucose, POC 272(H) 70 - 199 mg/dL Comment:Glu2: RN/MD Notified Glucose comment 1 Glu2: RN/MD Notified [facility] Blood 05/06/2025 11:1 1 AM CDT 05/06/2025 11:11 AM CDT Cindy Nguyen MD LAB POCT ORDERABLES - DEVICE Final Result Performing Organization Address [facility] Co de Phone Number [facility] Department [place] [employer] [place] [address] * Lactate (05/06/2025 1:53 AM CDT) Lactate 1.1 0.7 - 2.0 mmol/L Blood 05/06/2025 1:53 AM CDT 05/06/2025 3:59 AM CDT Tiffanie Roberts NP LAB BLOOD ORDERABLES Final Result Performing Organization Address City/[facility]/ZIP Co de Phone Number [facility] Department [place] [employer] [place] [address] * eGFR (05/06/2025 1:53 AM CDT) eGFR 72 >=60 mL/min/1. 73 m2 Comment: Interpretive Data Reference Interval Normal >/= 90 mL/min/1.73m2 Mildly decreased* 60 - 89 mL/min/1.73m2 Mildly to moderately decreased 45 - 59 mL/min/1.73m2 Moderately to severely decreased 30 - 44 mL/min/1.73m2 Severely decreased 15 - 29 mL/min/1.73m2 Kidney Failure < 15 mL/min/1.73m2 *Relative to young adult level Estimated glomerular filtration rate is determined by the 2020 CKD-EPI equation recommended by the National Kidney Foundation (A Unifying Approach to GFR Estimation: Recommendations of the NKF-ASK Task Force on Reassessing the Inclusion of Race in Diagnosing Kidney Disease, JASN 2020). The CKD-EPI equation should not be used for patients with unstable renal function and has not been validated in children and those over 70. Current interpretive data was last reviewed 2021. Blood 05/06/2025 1:53 AM CDT 05/06/2025 3:59 AM CDT Tiffanie Roberts NP LAB BLOOD ORDERABLES Final Result Performing Organization Address City/[facility]/ZIP Co de Phone Number [facility] [employer] [place] [address] * (ABNORMAL) Erythrocyte sedimentation rate (05/06/2025 1:53 AM CDT) Erythrocyte sedimentation rate 59(H) 1 - 30 mm/hr Blood 05/06/2025 1:53 AM CDT 05/06/2025 3:59 AM CDT Tiffanie Roberts NP LAB BLOOD ORDERABLES Final Result [facility] [place] [address] * (ABNORMAL) CBC without differential (05/06/2025 1:53 AM CDT) WBC 8.29 3.80 - 9.90 K/cumm Hgb 11.7(L) 11.9 - 15.5 g/dL [facility] Hct 36.6 35.6 - 45.5 % [facility] Plt 219 150 - 400 K/cumm [facility] MPV 9.2 9.1 - 12.3 fL [facility] RBC 3.84(L) 3.90 - 5.20 M/cumm [facility] MCV 95.3 81.3 - 96.4 fL [facility] MCH 30.5 27.1 - 33.3 pg [facility] MCHC 32.0(L) 32.3 - 35.7 g/dL [facility] RDW CV 17.5(H) 11.1 - 14.9 % [facility] RDW SD 61.1(H) 35.7 - 48.1 fL [facility] NRBC abs 0.00 0.00 - 0.01 K/cumm [facility] Blood 05/06/2025 1:53 AM CDT 05/06/2025 3:59 AM CDT Tiffanie Roberts NP LAB BLOOD ORDERABLES Final Result Performing Organization Address [facility] de Phone Number [facility] Department [place] [address] * (ABNORMAL) CRP (acute phase) (05/06/2025 1:53 AM CDT) [facility] CRP 235.7(H) <=10.0 mg/L Blood 05/06/2025 1:53 AM CDT 05/06/2025 3:59 AM CDT Tiffanie Roberts NP LAB BLOOD ORDERABLES Final Result Performing Organization Address [facility] Co de Phone Number [facility] [place] [address] * Phosphorus (05/06/2025 1:53 AM CDT) Pathologist [facility] Phosphorus, pl 2.9 2.3 - 4.5 mg/dL Blood 05/06/2025 1:53 AM CDT 05/06/2025 3:59 AM CDT Tiffanie Roberts DATABASE ENGINEER LAB [place] [address] * Magnesium (05/06/2025 1:53 AM CDT) [facility] Magnesium 1.8 1.4 - 2.5 mg/dL Blood 05/06/2025 1:53 AM CDT 05/06/2025 3:59 AM CDT Tiffanie Roberts DATABASE ENGINEER LAB BLOOD ORDERABLES Final Result Performing Organization Address City/[facility] [place] [address] * (ABNORMAL) Hepatic function panel (05/06/2025 1:53 AM CDT) [facility] Bilirubin, total 1.6(H) 0.1 - 1.2 mg/dL Bilirubin, direct 0.3 0.1 - 0.3 mg/dL [facility] Protein, pl 6.3(L) 6.5 - 8.5 g/dL [facility] Albumin 2.6(L) 3.5 - 5.0 g/dL [facility] Alk phos 101 40 - 130 Units/L [facility] ALT 13 7 - 45 Units/L [facility] AST 73(H) 10 - 45 Units/L [facility] Blood 05/06/2025 1:53 AM CDT 05/06/2025 3:59 AM CDT Tiffanie Roberts NP LAB BLOOD ORDERABLES Final Result [facility] [place] [address] * (ABNORMAL) Basic metabolic panel (05/06/2025 1:53 AM CDT) Pathologist [facility] Sodium 134(L) 135 - 145 mmol/L Potassium, pl 3.5 3.3 - 4.9 mmol/L [facility] Chloride 95(L) 97 - 110 mmol/L [facility] CO2 31 22 - 32 mmol/L [facility] Anion gap 8 2 - 15 mmol/L [facility] BUN 15 6 - 25 mg/dL [facility] Creatinine 0.85 0.60 - 1.10 mg/dL [facility] Glucose 174 70 - 199 mg/dL [facility] Comment: Interpretive Data Fasting glucose >/= 126 mg/dl is diagnostic for diabetes. Fasting is defined as no caloric intake for at least 8 hours. Fasting glucose between 100 mg/dl to 125 mg/dl is diagnostic of prediabetes. In a patient with classic symptoms of hyperglycemia or hyperglycemic crisis, a random glucose >/= 200 mg/dl is diagnostic for diabetes. In the absence of unequivocal hyperglycemia, results should be confirmed by repeat testing. The classification and Diagnosis of Diabetes Diabetes Care 2021; 46: S19-S40. Current interpretive data was last revised 2022. Calcium 8.7 8.5 - 10.3 mg/dL [facility] Blood 05/06/2025 1:53 AM CDT 05/06/2025 3:59 AM CDT Tiffanie Roberts NP LAB BLOOD ORDERABLES Final Result Performing Organization Address City/[facility]/ZIP Co de Phone Number [facility] Department [place] [address] * POCT glucose (05/05/2025 8:15 PM CDT) Glucose, POC 132 70 - 199 mg/dL Blood 05/05/2025 8:15 PM CDT 05/05/2025 8:15 PM CDT us Cindy Nguyen MD LAB POCT ORDERABLES - DEVICE Final Result [facility] Department [place] [address] * XR Chest 1 View (05/05/2025 5:40 PM CDT) Anatomical Region Laterality Modality Body, Chest N/A Digital Radiogra phy 05/06/2025 7:52 AM CDT Impressions 05/06/2025 7:52 AM CDT Comparison is made to chest radiograph dated 05/03/2025. Left internal jugular venous approach catheter tip overlies the confluence of the brachiocephalic veins and superior vena cava. The patient is status post transcatheter aortic valve replacement. Mild interstitial edema in both lungs and small right pleural effusion with mild right basilar atelectasis, similar to prior study. No left pleural effusion. No pneumothorax. Stable cardiomediastinal silhouette. Electronically signed by: Maryanne Chavez M.D. Narrative 05/06/2025 7:52 AM CDT EXAMINATION: 1 view chest radiograph Procedure Note Maryanne Chavez MD - 05/06/2025 EXAMINATION: 1 view chest radiograph IMPRESSION: Comparison is made to chest radiograph dated 05/03/2025. Left internal jugular venous approach catheter tip overlies the confluence of the brachiocephalic veins and superior vena cava. The patient is status post transcatheter aortic valve replacement. Mild interstitial edema in both lungs and small right pleural effusion with mild right basilar atelectasis, similar to prior study. No left pleural effusion. No pneumothorax. Stable cardiomediastinal silhouette. Electronically signed by: Maryanne Chavez M.D. us Tiffanie Roberts DATABASE ENGINEER IMG XR PROCEDURES Fi nal Result * POCT glucose (05/05/2025 5:28 PM CDT) Glucose, POC 146 70 - 199 mg/dL Blood 05/05/2025 5:28 PM CDT 05/05/2025 5:28 PM CDT Cindy Nguyen MD LAB POCT ORDERABLES - DEVICE Final Result [facility] Department [place] [address] * Blood culture Blood Antecubital, left (05/05/2025 5:23 PM CDT) Report Final Report: No growth Blood (Antecubital, left) 05/05/2025 5:23 PM CDT 05/05/2025 5:48 PM CDT Narrative [facility] - 05/10/2025 7:00 AM CDT 1. Blood cultures are incubated for 4 days on a continuously monitored blood culture system. The first report of a negative culture is issued within 24 hours of receipt of the specimen in the laboratory. 2. Positive culture results are reported as soon as they are detected. 3. The most important factor for detection of microbes in the setting of bloodstream infection is the volume of blood submitted for culture. Failure to collect an optimal blood volume can result in false negative blood cultures. 4. For pediatric patients, the recommended blood volume to collect follows a weight based strategy. See the electronic test catalog for collection instructions. 5. For positive blood cultures, a rapid molecular test may be performed for organism identification using the pawel ePlex blood culture identification panel for gram positive (BCID-GP) and gram negative (BCID-GN) organisms. This nucleic acid amplification test detects microbial DNA in positive blood culture broth. This assay has been cleared by the [place] Food and Drug Administration and its performance characteristics have been verified by the [facility]. For questions about this culture, contact the Microbiology Laboratory at [phone]. Interpretive data was last revised on 24. Cindy Nguyen MD LAB MICROBIOLOGY - GEN ERAL ORDERABLES Final Result CHARIS REYES [facility] Department [place] [address] * Blood culture Blood Antecubital, right (05/05/2025 5:22 PM CDT) Report Final Report: No growth Blood (Antecubital, right) 05/05/2025 5:22 PM CDT 05/05/2025 5:47 PM CDT Ousmane REYES - 05/10/2025 7:00 AM CDT 1. Blood cultures are incubated for 4 days on a continuously monitored blood culture system. The first report of a negative culture is issued within 24 hours of receipt of the specimen in the laboratory. 2. Positive culture results are reported as soon as they are detected. 3. The most important factor for detection of microbes in the setting of bloodstream infection is the volume of blood submitted for culture. Failure to collect an optimal blood volume can result in false negative blood cultures. 4. For pediatric patients, the recommended blood volume to collect follows a weight based strategy. See the electronic test catalog for collection instructions. 5. For positive blood cultures, a rapid molecular test may be performed for organism identification using the pawel ePlex blood culture identification panel for gram positive (BCID-GP) and gram negative (BCID-GN) organisms. This nucleic acid amplification test detects microbial DNA in positive blood culture broth. This assay has been cleared by the [place] Food and Drug Administration and its performance characteristics have been verified by the [facility]. For questions about this culture, contact the Microbiology Laboratory at [phone]. Interpretive data was last revised on 24. Cindy Nguyen MD LAB MICROBIOLOGY - GEN ERAL ORDERABLES Final Result CHARIS [facility] Department [place] [address] * Respiratory pathogen panel Nasopharyngeal (05/05/2025 4:58 PM CDT) Pathologist [facility] Influenza A RNA Not Detected Not Detected Influenza B RNA Not Detected Not Detected [facility] RSV RNA Not Detected Not Detected [facility] COVID-19 RNA Not Detected Not Detected [facility] Coronavirus 229E RNA Not Detected Not Detected [facility] Coronavirus HKU1 RNA Not Detected Not Detected [facility] Coronavirus NL63 RNA Not Detected Not Detected [facility] Coronavirus OC43 RNA Not Detected Not Detected [facility] Adenovirus DNA Not Detected Not Detected [facility] Metapneumovirus RNA Not Detected Not Detected [facility] Rhinovirus/Enterov irus RNA Not Detected Not Detected [facility] Parainfluenza 1 RNA Not Detected Not Detected [facility] Parainfluenza 2 RNA Not Detected Not Detected [facility] Parainfluenza 3 RNA Not Detected Not Detected [facility] Parainfluenza 4 RNA Not Detected Not Detected [facility] B. pertussis DNA Not Detected Not Detected [facility] B. parapertussis DNA Not Detected Not Detected [facility] C. pneumoniae DNA Not Detected Not Detected [facility] M. pneumoniae DNA Not Detected Not Detected [facility] Nasopharyngeal 05/05/2025 4: 58 PM CDT 05/05/2025 5:54 PM CDT Narrative [facility] - 05/05/2025 6:53 PM CDT Is the Patient experiencing symptoms consistent with COVID?->Yes Surveillance testing for transplant patient?->No Interpretive Data The Videofropper FilmArray Respiratory Panel (RP2.1) assay is a multiplexed real-time PCR based nucleic acid test capable of simultaneous qualitative detection and identification of multiple respiratory viral and bacterial nucleic acids, including SARS Coronavirus 2 (the causative agent of COVID-19). The following bacteria, viruses and virus subtypes can be identified using the FilmArray RP2.1 assay: Bordetella pertussis, Bordetella parapertussis, Chlamydia pneumoniae, Mycoplasma pneumoniae, Adenovirus, SARS Coronavirus 2, seasonal coronaviruses (Coronavirus HKU1, Coronavirus NL63, Coronavirus 229E, and Coronavirus OC43), Influenza A, Influenza A subtype H1, Influenza A subtype H3, Influenza A subtype 2009 H1, Influenza B, Metapneumovirus, Parainfluenza 1, Parainfluenza 2, Parainfluenza 3, Parainfluenza 4, RSV, Rhinovirus/Enterovirus. Due to the genetic similarity between human Rhinovirus and Enterovirus, the FilmArray RP2.1 assay cannot reliably differentiate them. Coronavirus OC43 may cross-react with some isolates of Coronavirus HKU1. A dual positive result may be due to cross-reactivity or may indicate a co- infection. The detection and identification of specific viral and bacterial nucleic acids from individuals exhibiting signs and symptoms of a respiratory infection aids in the diagnosis of respiratory infection if used in conjunction with other clinical and epidemiological information. The results of this test should not be used as the sole basis for diagnosis, treatment, or other management decisions. Negative results in the setting of a respiratory illness may be due to infection with pathogens that are not detected by this test. Positive results do not rule out infection/co-infection with other organisms. The agent(s) detected by the FilmArray RP2.1 may not be the definite cause of disease. Additional testing (lab, imaging, etc.) may be necessary when evaluating a patient with possible respiratory tract infection. The FilmArray RP2.1 assay has FDA clearance for testing of DATABASE ENGINEER swabs. The performance of additional specimen types has been assessed by the performing laboratory. The performance characteristics of this assay have been determined by [facility]. Current interpretive data was last revised on 22. us Tiffanie Roberts DATABASE ENGINEER LAB MICROBIOLOGY - G ENERAL ORDERABLES Final Result [facility] Department [place] [address] * POCT glucose (05/05/2025 11:52 AM CDT) Glucose, POC 188 70 - 199 mg/dL Blood 05/05/2025 11:5 2 AM CDT 05/05/2025 11:52 AM CDT us Cindy Nguyen MD LAB POCT ORDERABLES - DEVICE Final Result [facility] [place] [address] * POCT glucose (05/05/2025 8:04 AM CDT) Pathologist [facility] Glucose, POC 97 70 - 199 mg/dL Blood 05/05/2025 8:04 AM CDT 05/05/2025 8:04 AM CDT us Cindy Nguyen MD LAB POCT ORDERABLES - DEVICE Final Result Performing Organization Address [facility] de Phone Number [facility] [place] [address] * eGFR (05/05/2025 6:20 AM CDT) [facility] eGFR 90 >=60 mL/min/1. 73 m2 Comment: Interpretive Data Reference Interval Normal >/= 90 mL/min/1.73m2 Mildly decreased* 60 - 89 mL/min/1.73m2 Mildly to moderately decreased 45 - 59 mL/min/1.73m2 Moderately to severely decreased 30 - 44 mL/min/1.73m2 Severely decreased 15 - 29 mL/min/1.73m2 Kidney Failure < 15 mL/min/1.73m2 *Relative to young adult level Estimated glomerular filtration rate is determined by the 2020 CKD-EPI equation recommended by the National Kidney Foundation (A Unifying Approach to GFR Estimation: Recommendations of the NKF-ASK Task Force on Reassessing the Inclusion of Race in Diagnosing Kidney Disease, JASN 2020). The CKD-EPI equation should not be used for patients with unstable renal function and has not been validated in children and those over 70. Current interpretive data was last reviewed 2021. Blood 05/05/2025 6:20 AM CDT 05/05/2025 6:46 AM CDT Cindy Nguyen MD LAB BLOOD ORDERABLES F inal Result Performing Organization Address [facility] Co de Phone Number [facility] Department [place] [address] * Differential, auto (05/05/2025 6:20 AM CDT) Neutrophil abs 4.19 1.50 - 6.50 K/cumm Imm gran abs 0.06 0.00 - 0.10 K/cumm [facility] Lymphocyte abs 2.60 0.80 - 3.30 K/cumm [facility] Monocyte abs 0.62 0.20 - 0.80 K/cumm [facility] Eosinophil abs 0.13 0.00 - 0.50 K/cumm [facility] Basophil abs 0.05 0.00 - 0.10 K/cumm [facility] Neutrophil pct 54.7 % [facility] Comment: Interpretive Data Percent cell count reference ranges are not reported, since discordance with absolute values may lead to misinterpretation of CBC data. Current Interpretive Data was last revised on 2018. Imm gran pct 0.8 % [facility] Comment: Interpretive Data Percent cell count reference ranges are not reported, since discordance with absolute values may lead to misinterpretation of CBC data. Current Interpretive Data was last revised on 2018. Lymphocyte pct 34.0 % [facility] Comment: Interpretive Data Percent cell count reference ranges are not reported, since discordance with absolute values may lead to misinterpretation of CBC data. Current Interpretive Data was last revised on 2018. Monocyte pct 8.1 % [facility] Comment: Interpretive Data Percent cell count reference ranges are not reported, since discordance with absolute values may lead to misinterpretation of CBC data. Current Interpretive Data was last revised on 2018. Eosinophil pct 1.7 % [facility] Comment: Interpretive Data Percent cell count reference ranges are not reported, since discordance with absolute values may lead to misinterpretation of CBC data. Current Interpretive Data was last revised on 2018. Basophil pct 0.7 % [facility] Comment: Interpretive Data Percent cell count reference ranges are not reported, since discordance with absolute values may lead to misinterpretation of CBC data. Current Interpretive Data was last revised on 2018. Blood 05/05/2025 6:20 AM CDT 05/05/2025 6:46 AM CDT Tiffanie Roberts NP LAB BLOOD ORDERABLES Final Result Performing Organization Address [facility] Co de Phone Number [facility] Department [place] [address] * (ABNORMAL) CBC with auto differential (05/05/2025 6:20 AM CDT) WBC 7.65 3.80 - 9.90 K/cumm Hgb 10.2(L) 11.9 - 15.5 g/dL [facility] Hct 31.6(L) 35.6 - 45.5 % [facility] Plt 275 150 - 400 K/cumm [facility] MPV 8.7(L) 9.1 - 12.3 fL [facility] RBC 3.34(L) 3.90 - 5.20 M/cumm [facility] MCV 94.6 81.3 - 96.4 fL [facility] MCH 30.5 27.1 - 33.3 pg [facility] MCHC 32.3 32.3 - 35.7 g/dL [facility] RDW CV 17.7(H) 11.1 - 14.9 % [facility] RDW SD 61.9(H) 35.7 - 48.1 fL [facility] NRBC abs 0.00 0.00 - 0.01 K/cumm [facility] Blood 05/05/2025 6:20 AM CDT 05/05/2025 6:46 AM CDT Tiffanie Roberts NP LAB BLOOD ORDERABLES Final Result Performing Organization Address City/[facility]/ZIP Co de Phone Number [facility] Department [place] [address] * Phosphorus (05/05/2025 6:20 AM CDT) Phosphorus, pl 3.3 2.3 - 4.5 mg/dL Blood 05/05/2025 6:20 AM CDT 05/05/2025 6:40 AM CDT Tiffanie Roberts DATABASE ENGINEER LAB BLOOD ORDERABLES Final Result Performing Organization Address City/[facility] Co de Phone Number [facility] [place] [address] * Magnesium (05/05/2025 6:20 AM CDT) Pathologist [facility] Magnesium 1.7 1.4 - 2.5 mg/dL Blood 05/05/2025 6:20 AM CDT 05/05/2025 6:40 AM CDT Tiffanie Roberts NP LAB BLOOD ORDERABLES Final Result Performing Organization Address [facility] de Phone Number [facility] [place] [address] * Basic metabolic panel (05/05/2025 6:20 AM CDT) Pathologist [facility] Sodium 140 135 - 145 mmol/L Potassium, pl 4.0 3.3 - 4.9 mmol/L [facility] Chloride 102 97 - 110 mmol/L [facility] CO2 30 22 - 32 mmol/L [facility] Anion gap 8 2 - 15 mmol/L [facility] BUN 12 6 - 25 mg/dL [facility] Creatinine 0.71 0.60 - 1.10 mg/dL [facility] Glucose 79 70 - 199 mg/dL [facility] Comment: Interpretive Data Fasting glucose >/= 126 mg/dl is diagnostic for diabetes. Fasting is defined as no caloric intake for at least 8 hours. Fasting glucose between 100 mg/dl to 125 mg/dl is diagnostic of prediabetes. In a patient with classic symptoms of hyperglycemia or hyperglycemic crisis, a random glucose >/= 200 mg/dl is diagnostic for diabetes. In the absence of unequivocal hyperglycemia, results should be confirmed by repeat testing. The classification and Diagnosis of Diabetes Diabetes Care 2021; 46: S19-S40. Current interpretive data was last revised 2022. Calcium 8.7 8.5 - 10.3 mg/dL [facility] Blood 05/05/2025 6:20 AM CDT 05/05/2025 6:40 AM CDT Cindy Nguyen MD LAB BLOOD ORDERABLES F inal Result Performing Organization Address City/[facility] Co de Phone Number [facility] [place] [address] * POCT glucose (05/04/2025 8:16 PM CDT) Glucose, POC 188 70 - 199 mg/dL Blood 05/04/2025 8:16 PM CDT 05/04/2025 8:16 PM CDT Cindy Nguyen MD LAB POCT ORDERABLES - DEVICE Final Result Performing Organization Address [facility] de Phone Number [facility] [place] [address] * POCT glucose (05/04/2025 5:08 PM CDT) Glucose, POC 196 70 - 199 mg/dL Blood 05/04/2025 5:08 PM CDT 05/04/2025 5:08 PM CDT Cindy Nguyen MD LAB POCT ORDERABLES - DEVICE Final Result Performing Organization Address City/[facility] de Phone Number [facility] [place] [address] * (ABNORMAL) POCT glucose (05/04/2025 11:40 AM CDT) Glucose, POC 218(H) 70 - 199 mg/dL Blood 05/04/2025 11:4 0 AM CDT 05/04/2025 11:40 AM CDT Cindy Nguyen MD LAB POCT ORDERABLES - DEVICE Final Result Performing Organization Address City/State/[facility] Co de Phone Number [facility] Department [place] [address] * POCT glucose (05/04/2025 8:29 AM CDT) Glucose, POC 129 70 - 199 mg/dL Blood 05/04/2025 8:29 AM CDT 05/04/2025 8:29 AM CDT Cindy Nguyen MD LAB POCT ORDERABLES - DEVICE Final Result Performing Organization Address City/[facility] Co de Phone Number [facility] Department [place] [address] * eGFR (05/04/2025 4:18 AM CDT) eGFR 78 >=60 mL/min/1. 73 m2 Comment: Interpretive Data Reference Interval Normal >/= 90 mL/min/1.73m2 Mildly decreased* 60 - 89 mL/min/1.73m2 Mildly to moderately decreased 45 - 59 mL/min/1.73m2 Moderately to severely decreased 30 - 44 mL/min/1.73m2 Severely decreased 15 - 29 mL/min/1.73m2 Kidney Failure < 15 mL/min/1.73m2 *Relative to young adult level Estimated glomerular filtration rate is determined by the 2020 CKD-EPI equation recommended by the National Kidney Foundation (A Unifying Approach to GFR Estimation: Recommendations of the NKF-ASK Task Force on Reassessing the Inclusion of Race in Diagnosing Kidney Disease, JASN 2020). The CKD-EPI equation should not be used for patients with unstable renal function and has not been validated in children and those over 70. Current interpretive data was last reviewed 2021. Blood 05/04/2025 4:18 AM CDT 05/04/2025 4:43 AM CDT us Cindy Nguyen MD LAB BLOOD ORDERABLES F inal Result Performing Organization Address City/[facility]/ZIP Co de Phone Number [facility] Department [place] [address] * Magnesium (05/04/2025 4:18 AM CDT) Pathologist [facility] Magnesium 1.7 1.4 - 2.5 mg/dL Blood 05/04/2025 4:18 AM CDT 05/04/2025 4:43 AM CDT Tiffanie Roberts NP LAB BLOOD ORDERABLES Final Result Performing Organization Address [facility] de Phone Number [facility] Department [place] [address] * (ABNORMAL) Basic metabolic panel (05/04/2025 4:18 AM CDT) [facility] Sodium 138 135 - 145 mmol/L Potassium, pl 3.9 3.3 - 4.9 mmol/L [facility] Chloride 101 97 - 110 mmol/L [facility] CO2 29 22 - 32 mmol/L [facility] Anion gap 8 2 - 15 mmol/L [facility] BUN 16 6 - 25 mg/dL [facility] Creatinine 0.80 0.60 - 1.10 mg/dL [facility] Glucose 160 70 - 199 mg/dL [facility] Comment: Interpretive Data Fasting glucose >/= 126 mg/dl is diagnostic for diabetes. Fasting is defined as no caloric intake for at least 8 hours. Fasting glucose between 100 mg/dl to 125 mg/dl is diagnostic of prediabetes. In a patient with classic symptoms of hyperglycemia or hyperglycemic crisis, a random glucose >/= 200 mg/dl is diagnostic for diabetes. In the absence of unequivocal hyperglycemia, results should be confirmed by repeat testing. The classification and Diagnosis of Diabetes Diabetes Care 2021; 46: S19-S40. Current interpretive data was last revised 2022. Calcium 8.4(L) 8.5 - 10.3 mg/dL [facility] Blood 05/04/2025 4:18 AM CDT 05/04/2025 4:43 AM CDT Cindy Nguyen MD LAB BLOOD ORDERABLES F inal Result Performing Organization Address [facility] Co de Phone Number [facility] [place] [address] * (ABNORMAL) POCT glucose (05/03/2025 7:48 PM CDT) Glucose, POC 233(H) 70 - 199 mg/dL Blood 05/03/2025 7:48 PM CDT 05/03/2025 7:48 PM CDT Cindy Nguyen MD LAB POCT ORDERABLES - DEVICE Final Result Performing Organization Address [facility] Co de Phone Number [facility] [place] [address] * POCT glucose (05/03/2025 5:30 PM CDT) Glucose, POC 153 70 - 199 mg/dL Blood 05/03/2025 5:30 PM CDT 05/03/2025 5:30 PM CDT Cindy Nguyen MD LAB POCT ORDERABLES - DEVICE Final Result Performing Organization Address [facility] Co de Phone Number [facility] [place] [address] * XR Chest 1 View (05/03/2025 12:05 PM CDT) Anatomical Region Laterality Modality Body, Chest N/A Computed Radiogr aphy 05/03/2025 1:47 PM CDT Impressions 05/03/2025 1:47 PM CDT Comparison 05/01/2025 8:33 AM. Left internal jugular central venous catheter tip overlies the superior vena cava. Transcatheter aortic valve replacement again noted. Small right basilar pleural effusion and mild right base atelectasis again noted. Trace pulmonary edema may be present in the right lung. The left lung is clear. No pneumothorax seen. Cardiomediastinal silhouette stable. Electronically signed by: Anil Rosales M.D. Narrative 05/03/2025 1:47 PM CDT EXAMINATION: 1 view chest radiograph Procedure Note Anil Rosales MD - 05/03/2025 EXAMINATION: 1 view chest radiograph IMPRESSION: Comparison 05/01/2025 8:33 AM. Left internal jugular central venous catheter tip overlies the superior vena cava. Transcatheter aortic valve replacement again noted. Small right basilar pleural effusion and mild right base atelectasis again noted. Trace pulmonary edema may be present in the right lung. The left lung is clear. No pneumothorax seen. Cardiomediastinal silhouette stable. Electronically signed by: Anil Rosales M.D. us Tiffanie Roberts NP IMG XR PROCEDURES Fi nal Result * POCT glucose (05/03/2025 11:37 AM CDT) Glucose, POC 150 70 - 199 mg/dL Blood 05/03/2025 11:3 7 AM CDT 05/03/2025 11:37 AM CDT us Cindy Nguyen MD LAB POCT ORDERABLES - DEVICE Final Result [facility] Department [place] [address] * POCT glucose (05/03/2025 8:37 AM CDT) Glucose, POC 126 70 - 199 mg/dL Blood 05/03/2025 8:37 AM CDT 05/03/2025 8:37 AM CDT us Cindy Nguyen MD LAB POCT ORDERABLES - DEVICE Final Result Performing Organization Address City/[facility]/ZIP Co de Phone Number [facility] [place] [address] * eGFR (05/02/2025 9:00 PM CDT) eGFR 75 >=60 mL/min/1. 73 m2 Comment: Interpretive Data Reference Interval Normal >/= 90 mL/min/1.73m2 Mildly decreased* 60 - 89 mL/min/1.73m2 Mildly to moderately decreased 45 - 59 mL/min/1.73m2 Moderately to severely decreased 30 - 44 mL/min/1.73m2 Severely decreased 15 - 29 mL/min/1.73m2 Kidney Failure < 15 mL/min/1.73m2 *Relative to young adult level Estimated glomerular filtration rate is determined by the 2020 CKD-EPI equation recommended by the National Kidney Foundation (A Unifying Approach to GFR Estimation: Recommendations of the NKF-ASK Task Force on Reassessing the Inclusion of Race in Diagnosing Kidney Disease, JASN 2020). The CKD-EPI equation should not be used for patients with unstable renal function and has not been validated in children and those over 70. Current interpretive data was last reviewed 2021. Blood 05/02/2025 9:00 PM CDT 05/02/2025 9:25 PM CDT us Tiffanie Roberts NP LAB BLOOD ORDERABLES Final Result [facility] [place] [address] * Magnesium (05/02/2025 9:00 PM CDT) Magnesium 1.8 1.4 - 2.5 mg/dL Blood 05/02/2025 9:00 PM CDT 05/02/2025 9:25 PM CDT Tiffanie Roberts NP LAB BLOOD ORDERABLES Final Result [facility] [place] [address] * (ABNORMAL) Basic metabolic panel (05/02/2025 9:00 PM CDT) [facility] Sodium 136 135 - 145 mmol/L Potassium, pl 3.9 3.3 - 4.9 mmol/L [facility] Chloride 102 97 - 110 mmol/L [facility] [facility] CO2 26 22 - 32 mmol/L [facility] Anion gap 8 2 - 15 mmol/L [facility] BUN 15 6 - 25 mg/dL [facility] Creatinine 0.82 0.60 - 1.10 mg/dL [facility] Glucose 289(H) 70 - 199 mg/dL [facility] Comment: Interpretive Data Fasting glucose >/= 126 mg/dl is diagnostic for diabetes. Fasting is defined as no caloric intake for at least 8 hours. Fasting glucose between 100 mg/dl to 125 mg/dl is diagnostic of prediabetes. In a patient with classic symptoms of hyperglycemia or hyperglycemic crisis, a random glucose >/= 200 mg/dl is diagnostic for diabetes. In the absence of unequivocal hyperglycemia, results should be confirmed by repeat testing. The classification and Diagnosis of Diabetes Diabetes Care 2021; 46: S19-S40. Current interpretive data was last revised 2022. Calcium 7.8(L) 8.5 - 10.3 mg/dL [facility] Blood 05/02/2025 9:00 PM CDT 05/02/2025 9:25 PM CDT us Tiffanie Roberts NP LAB BLOOD ORDERABLES Final Result Performing Organization Address City/[facility]/ZIP Co de Phone Number [facility] Department [place] [address] * (ABNORMAL) POCT glucose (05/02/2025 7:31 PM CDT) Glucose, POC 287(H) 70 - 199 mg/dL Blood 05/02/2025 7:31 PM CDT 05/02/2025 7:31 PM CDT Cindy Nguyen MD LAB POCT ORDERABLES - DEVICE Final Result Performing Organization Address [facility] Co de Phone Number [facility] [employer] [place] [address] * (ABNORMAL) POCT glucose (05/02/2025 4:56 PM CDT) Glucose, POC 241(H) 70 - 199 mg/dL Blood 05/02/2025 4:56 PM CDT 05/02/2025 4:56 PM CDT Cindy Nguyen MD LAB POCT ORDERABLES - DEVICE Final Result Performing Organization Address [facility] Co de Phone Number [facility] [place] [address] * POCT glucose (05/02/2025 11:39 AM CDT) Glucose, POC 173 70 - 199 mg/dL Blood 05/02/2025 11:3 9 AM CDT 05/02/2025 11:39 AM CDT Cindy Nguyen MD LAB POCT ORDERABLES - DEVICE Final Result Performing Organization Address City/[facility] Co de Phone Number [facility] [place] [address] * POCT glucose (05/02/2025 7:47 AM CDT) Glucose, POC 138 70 - 199 mg/dL Blood 05/02/2025 7:4 7 AM CDT 05/02/2025 7:47 AM CDT us Cindy Nguyen MD LAB POCT ORDERABLES - DEVICE Final Result Performing Organization Address [facility] Co de Phone Number [facility] Department [place] [address] * eGFR (05/02/2025 5:41 AM CDT) Pathologist [facility] eGFR 77 >=60 mL/min/1. 73 m2 Comment: Interpretive Data Reference Interval Normal >/= 90 mL/min/1.73m2 Mildly decreased* 60 - 89 mL/min/1.73m2 Mildly to moderately decreased 45 - 59 mL/min/1.73m2 Moderately to severely decreased 30 - 44 mL/min/1.73m2 Severely decreased 15 - 29 mL/min/1.73m2 Kidney Failure < 15 mL/min/1.73m2 *Relative to young adult level Estimated glomerular filtration rate is determined by the 2020 CKD-EPI equation recommended by the National Kidney Foundation (A Unifying Approach to GFR Estimation: Recommendations of the NKF-ASK Task Force on Reassessing the Inclusion of Race in Diagnosing Kidney Disease, JASN 2020). The CKD-EPI equation should not be used for patients with unstable renal function and has not been validated in children and those over 70. Current interpretive data was last reviewed 2021. Blood 05/02/2025 5:41 AM CDT 05/02/2025 6:26 AM CDT us Jeri Crawford MD LAB BLOOD ORDERABLES Elena l Result Performing Organization Address City/[facility]/ZIP Co de Phone Number [facility] Department [place] [address] * (ABNORMAL) CBC without differential (05/02/2025 5:41 AM CDT) [facility] WBC 5.22 3.80 - 9.90 K/cumm Hgb 9.1(L) 11.9 - 15.5 g/dL [facility] Hct 28.6(L) 35.6 - 45.5 % [facility] Plt 244 150 - 400 K/cumm [facility] MPV 9.0(L) 9.1 - 12.3 fL [facility] RBC 3.00(L) 3.90 - 5.20 M/cumm [facility] MCV 95.3 81.3 - 96.4 fL [facility] MCH 30.3 27.1 - 33.3 pg [facility] MCHC 31.8(L) 32.3 - 35.7 g/dL [facility] RDW CV 17.9(H) 11.1 - 14.9 % [facility] RDW SD 61.9(H) 35.7 - 48.1 fL [facility] NRBC abs 0.00 0.00 - 0.01 K/cumm [facility] Blood 05/02/2025 5:41 AM CDT 05/02/2025 6:26 AM CDT Jeri Crawford MD LAB BLOOD ORDERABLES Elena l Result [facility] [employer] [place] [address] * Phosphorus (05/02/2025 5:41 AM CDT) Phosphorus, pl 2.9 2.3 - 4.5 mg/dL Blood 05/02/2025 5:41 AM CDT 05/02/2025 6:26 AM CDT Jeri Crawford MD LAB BLOOD ORDERABLES Elena l Result [facility] [place] [address] * Magnesium (05/02/2025 5:41 AM CDT) Magnesium 1.8 1.4 - 2.5 mg/dL Blood 05/02/2025 5:41 AM CDT 05/02/2025 6:26 AM CDT Jeri Crawford MD LAB BLOOD ORDERABLES Elena l Result [facility] Department [place] [address] * (ABNORMAL) Basic metabolic panel (05/02/2025 5:41 AM CDT) [facility] Sodium 135 135 - 145 mmol/L Potassium, pl 3.9 3.3 - 4.9 mmol/L [facility] Chloride 100 97 - 110 mmol/L [facility] CO2 27 22 - 32 mmol/L [facility] Anion gap 8 2 - 15 mmol/L [facility] BUN 12 6 - 25 mg/dL [facility] Creatinine 0.81 0.60 - 1.10 mg/dL [facility] Glucose 157 70 - 199 mg/dL [facility] Comment: Interpretive Data Fasting glucose >/= 126 mg/dl is diagnostic for diabetes. Fasting is defined as no caloric intake for at least 8 hours. Fasting glucose between 100 mg/dl to 125 mg/dl is diagnostic of prediabetes. In a patient with classic symptoms of hyperglycemia or hyperglycemic crisis, a random glucose >/= 200 mg/dl is diagnostic for diabetes. In the absence of unequivocal hyperglycemia, results should be confirmed by repeat testing. The classification and Diagnosis of Diabetes Diabetes Care 2021; 46: S19-S40. Current interpretive data was last revised 2022. Calcium 8.2(L) 8.5 - 10.3 mg/dL [facility] Blood 05/02/2025 5:41 AM CDT 05/02/2025 6:26 AM CDT Jeri Crawford MD LAB BLOOD ORDERABLES Elena l Result Performing Organization Address [facility]/ZIP Co de Phone Number [facility] Department [place] [address] * eGFR (05/01/2025 9:16 PM CDT) Pathologist [facility] eGFR 75 >=60 mL/min/1. 73 m2 Comment: Interpretive Data Reference Interval Normal >/= 90 mL/min/1.73m2 Mildly decreased* 60 - 89 mL/min/1.73m2 Mildly to moderately decreased 45 - 59 mL/min/1.73m2 Moderately to severely decreased 30 - 44 mL/min/1.73m2 Severely decreased 15 - 29 mL/min/1.73m2 Kidney Failure < 15 mL/min/1.73m2 *Relative to young adult level Estimated glomerular filtration rate is determined by the 2020 CKD-EPI equation recommended by the National Kidney Foundation (A Unifying Approach to GFR Estimation: Recommendations of the NKF-ASK Task Force on Reassessing the Inclusion of Race in Diagnosing Kidney Disease, JASN 2020). The CKD-EPI equation should not be used for patients with unstable renal function and has not been validated in children and those over 70. Current interpretive data was last reviewed 2021. Blood 05/01/2025 9:16 PM CDT 05/01/2025 9:51 PM CDT Tiffanie Roberts NP LAB BLOOD ORDERABLES Final Result [facility] Department [place] [address] * (ABNORMAL) Basic metabolic panel (05/01/2025 9:16 PM CDT) [facility] Sodium 134(L) 135 - 145 mmol/L Potassium, pl 3.9 3.3 - 4.9 mmol/L [facility] Chloride 99 97 - 110 mmol/L [facility] CO2 27 22 - 32 mmol/L [facility] Anion gap 8 2 - 15 mmol/L [facility] BUN 13 6 - 25 mg/dL [facility] Creatinine 0.82 0.60 - 1.10 mg/dL [facility] Glucose 217(H) 70 - 199 mg/dL [facility] Comment: Interpretive Data Fasting glucose >/= 126 mg/dl is diagnostic for diabetes. Fasting is defined as no caloric intake for at least 8 hours. Fasting glucose between 100 mg/dl to 125 mg/dl is diagnostic of prediabetes. In a patient with classic symptoms of hyperglycemia or hyperglycemic crisis, a random glucose >/= 200 mg/dl is diagnostic for diabetes. In the absence of unequivocal hyperglycemia, results should be confirmed by repeat testing. The classification and Diagnosis of Diabetes Diabetes Care 2021; 46: S19-S40. Current interpretive data was last revised 2022. Calcium 7.8(L) 8.5 - 10.3 mg/dL [facility] Blood 05/01/2025 9:16 PM CDT 05/01/2025 9:51 PM CDT Tiffanie Roberts NP LAB BLOOD ORDERABLES Final Result Performing Organization Address [facility] de Phone Number [facility] Department [place] [address] * (ABNORMAL) POCT glucose (05/01/2025 8:19 PM CDT) Glucose, POC 233(H) 70 - 199 mg/dL Blood 05/01/2025 8:19 PM CDT 05/01/2025 8:19 PM CDT Cindy Nguyen MD LAB POCT ORDERABLES - DEVICE Final Result Performing Organization Address [facility] de Phone Number [facility] [place] [employer] [place] [address] * POCT glucose (05/01/2025 4:26 PM CDT) Glucose, POC 184 70 - 199 mg/dL Blood 05/01/2025 4:26 PM CDT 05/01/2025 4:26 PM CDT Cindy Nguyen MD LAB POCT ORDERABLES - DEVICE Final Result Performing Organization Address [facility]/ZIP Co de Phone Number [facility] Department [place] [address] * eGFR (05/01/2025 2:41 PM CDT) eGFR 74 >=60 mL/min/1. 73 m2 Comment: Interpretive Data Reference Interval Normal >/= 90 mL/min/1.73m2 Mildly decreased* 60 - 89 mL/min/1.73m2 Mildly to moderately decreased 45 - 59 mL/min/1.73m2 Moderately to severely decreased 30 - 44 mL/min/1.73m2 Severely decreased 15 - 29 mL/min/1.73m2 Kidney Failure < 15 mL/min/1.73m2 *Relative to young adult level Estimated glomerular filtration rate is determined by the 2020 CKD-EPI equation recommended by the National Kidney Foundation (A Unifying Approach to GFR Estimation: Recommendations of the NKF-ASK Task Force on Reassessing the Inclusion of Race in Diagnosing Kidney Disease, JASN 2020). The CKD-EPI equation should not be used for patients with unstable renal function and has not been validated in children and those over 70. Current interpretive data was last reviewed 2021. Blood 05/01/2025 2:41 PM CDT 05/01/2025 3:24 PM CDT us Tiffanie Roberts NP LAB BLOOD ORDERABLES Final Result Performing Organization Address [facility] Co de Phone Number [facility] Department [place] [address] * Phosphorus (05/01/2025 2:41 PM CDT) Phosphorus, pl 2.9 2.3 - 4.5 mg/dL Blood 05/01/2025 2:41 PM CDT 05/01/2025 3:24 PM CDT Tiffanie Roberts NP LAB BLOOD ORDERABLES Final Result Performing Organization Address [facility] Co de Phone Number [facility] Department [place] [address] * Magnesium (05/01/2025 2:41 PM CDT) Pathologist [facility] Magnesium 1.5 1.4 - 2.5 mg/dL Blood 05/01/2025 2:41 PM CDT 05/01/2025 3:24 PM CDT Tiffanie Roberts NP LAB BLOOD ORDERABLES Final Result [facility] Department [place] [address] * (ABNORMAL) Basic metabolic panel (05/01/2025 2:41 PM CDT) [facility] Sodium 134(L) 135 - 145 mmol/L Potassium, pl 3.8 3.3 - 4.9 mmol/L [facility] Chloride 100 97 - 110 mmol/L [facility] CO2 26 22 - 32 mmol/L [facility] Anion gap 8 2 - 15 mmol/L [facility] BUN 12 6 - 25 mg/dL [facility] Creatinine 0.83 0.60 - 1.10 mg/dL [facility] Glucose 227(H) 70 - 199 mg/dL [facility] Comment: Interpretive Data Fasting glucose >/= 126 mg/dl is diagnostic for diabetes. Fasting is defined as no caloric intake for at least 8 hours. Fasting glucose between 100 mg/dl to 125 mg/dl is diagnostic of prediabetes. In a patient with classic symptoms of hyperglycemia or hyperglycemic crisis, a random glucose >/= 200 mg/dl is diagnostic for diabetes. In the absence of unequivocal hyperglycemia, results should be confirmed by repeat testing. The classification and Diagnosis of Diabetes Diabetes Care 2021; 46: S19-S40. Current interpretive data was last revised 2022. Calcium 7.9(L) 8.5 - 10.3 mg/dL [facility] Blood 05/01/2025 2:41 PM CDT 05/01/2025 3:24 PM CDT us Tiffanie Roberts NP LAB BLOOD ORDERABLES Final Result [facility] Department [place] [address] * POCT glucose (05/01/2025 12:28 PM CDT) Glucose, POC 164 70 - 199 mg/dL Blood 05/01/2025 12:2 8 PM CDT 05/01/2025 12:28 PM CDT Cindy Nguyen MD LAB POCT ORDERABLES - DEVICE Final Result Performing Organization Address [facility] Co de Phone Number [facility] Department [place] [address] * XR Chest 1 View (05/01/2025 9:19 AM CDT) Anatomical Region Laterality Modality Body, Chest N/A Computed Radiogr aphy 05/01/2025 10:1 7 AM CDT Impressions 05/01/2025 10:21 AM CDT Comparison is made to radiograph 04/15/2025 at 9:28 AM. Left internal jugular approach central venous catheter tip at the confluence of brachiocephalic vein and superior vena cava. Changes of aortic valve replacement. Slightly increased bilateral pleural effusions right greater than left. Bibasilar atelectasis. No pneumothorax. Stable cardiomediastinal silhouette. Dictated by: Rachel Lopez M.D. The radiology attending physician has personally reviewed this study, and had reviewed and/or edited this written report and agrees with it. Electronically signed by: Gorge Mckoy M.D. Narrative 05/01/2025 10:21 AM CDT EXAMINATION: 1 view chest radiograph Procedure Note Gorge Mckoy MD - 05/01/2025 EXAMINATION: 1 view chest radiograph IMPRESSION: Comparison is made to radiograph 04/15/2025 at 9:28 AM. Left internal jugular approach central venous catheter tip at the confluence of brachiocephalic vein and superior vena cava. Changes of aortic valve replacement. Slightly increased bilateral pleural effusions right greater than left. Bibasilar atelectasis. No pneumothorax. Stable cardiomediastinal silhouette. Dictated by: Rachel Lopez M.D. The radiology attending physician has personally reviewed this study, and had reviewed and/or edited this written report and agrees with it. Electronically signed by: Gorge Mckoy M.D. Tiffanie Roberts DATABASE ENGINEER IMG XR PROCEDURES Fi nal Result * POCT glucose (05/01/2025 8:36 AM CDT) Glucose, POC 111 70 - 199 mg/dL Blood 05/01/2025 8:36 AM CDT 05/01/2025 8:36 AM CDT Cindy Nguyen MD LAB POCT ORDERABLES - DEVICE Final Result [facility] Department [place] [address] * (ABNORMAL) POCT glucose (05/01/2025 7:58 AM CDT) Glucose, POC 64(L) 70 - 199 mg/dL Blood 05/01/2025 7:58 AM CDT 05/01/2025 7:58 AM CDT Cindy Nguyen MD LAB POCT ORDERABLES - DEVICE Final Result [facility] [place] [address] * POCT glucose (04/30/2025 8:24 PM CDT) Glucose, POC 175 70 - 199 mg/dL Blood 04/30/2025 8:24 PM CDT 04/30/2025 8:24 PM CDT us Cindy Nguyen MD LAB POCT ORDERABLES - DEVICE Final Result Performing Organization Address [facility] Co de Phone Number [facility] [place] [address] * POCT glucose (04/30/2025 6:03 PM CDT) Glucose, POC 92 70 - 199 mg/dL Blood 04/30/2025 6:03 PM CDT 04/30/2025 6:03 PM CDT us Cindy Nguyen MD LAB POCT ORDERABLES - DEVICE Final Result Performing Organization Address [facility] Co de Phone Number [facility] [place] [address] * POCT glucose (04/30/2025 12:21 PM CDT) Glucose, POC 162 70 - 199 mg/dL Blood 04/30/2025 12:2 1 PM CDT 04/30/2025 12:21 PM CDT us Cindy Nguyen MD LAB POCT ORDERABLES - DEVICE Final Result Performing Organization Address [facility] [place] [address] * POCT glucose (04/30/2025 8:22 AM CDT) Glucose, POC 95 70 - 199 mg/dL Blood 04/30/2025 8:22 AM CDT 04/30/2025 8:22 AM CDT Cindy Nguyen MD LAB POCT ORDERABLES - DEVICE Final Result Performing Organization Address [facility] Co de Phone Number [facility] Department [place] [address] * eGFR (04/30/2025 4:54 AM CDT) eGFR 79 >=60 mL/min/1. 73 m2 Comment: Interpretive Data Reference Interval Normal >/= 90 mL/min/1.73m2 Mildly decreased* 60 - 89 mL/min/1.73m2 Mildly to moderately decreased 45 - 59 mL/min/1.73m2 Moderately to severely decreased 30 - 44 mL/min/1.73m2 Severely decreased 15 - 29 mL/min/1.73m2 Kidney Failure < 15 mL/min/1.73m2 *Relative to young adult level Estimated glomerular filtration rate is determined by the 2020 CKD-EPI equation recommended by the National Kidney Foundation (A Unifying Approach to GFR Estimation: Recommendations of the NKF-ASK Task Force on Reassessing the Inclusion of Race in Diagnosing Kidney Disease, JASN 2020). The CKD-EPI equation should not be used for patients with unstable renal function and has not been validated in children and those over 70. Current interpretive data was last reviewed 2021. Blood 04/30/2025 4:54 AM CDT 04/30/2025 5:30 AM CDT us Jeri Crawford MD LAB BLOOD ORDERABLES Elena l Result Performing Organization Address City/[facility]/ZIP Co de Phone Number [facility] [place] [address] * Differential, auto (04/30/2025 4:54 AM CDT) Neutrophil abs 2.01 1.50 - 6.50 K/cumm Imm gran abs 0.05 0.00 - 0.10 K/cumm [facility] Lymphocyte abs 2.53 0.80 - 3.30 K/cumm [facility] Monocyte abs 0.65 0.20 - 0.80 K/cumm [facility] Eosinophil abs 0.12 0.00 - 0.50 K/cumm [facility] Basophil abs 0.04 0.00 - 0.10 K/cumm [facility] Neutrophil pct 37.3 % [facility] Comment: Interpretive Data Percent cell count reference ranges are not reported, since discordance with absolute values may lead to misinterpretation of CBC data. Current Interpretive Data was last revised on 2018. Imm gran pct 0.9 % [facility] Comment: Interpretive Data Percent cell count reference ranges are not reported, since discordance with absolute values may lead to misinterpretation of CBC data. Current Interpretive Data was last revised on 2018. Lymphocyte pct 46.9 % [facility] Comment: Interpretive Data Percent cell count reference ranges are not reported, since discordance with absolute values may lead to misinterpretation of CBC data. Current Interpretive Data was last revised on 2018. Monocyte pct 12.0 % [facility] Comment: Interpretive Data Percent cell count reference ranges are not reported, since discordance with absolute values may lead to misinterpretation of CBC data. Current Interpretive Data was last revised on 2018. Eosinophil pct 2.2 % [facility] Comment: Interpretive Data Percent cell count reference ranges are not reported, since discordance with absolute values may lead to misinterpretation of CBC data. Current Interpretive Data was last revised on 2018. Basophil pct 0.7 % [facility] Comment: Interpretive Data Percent cell count reference ranges are not reported, since discordance with absolute values may lead to misinterpretation of CBC data. Current Interpretive Data was last revised on 2018. Blood 04/30/2025 4:54 AM CDT 04/30/2025 5:30 AM CDT us Jeri Crawford MD LAB BLOOD ORDERABLES Elena lau Result [facility] Department [place] [address] * (ABNORMAL) CBC with auto differential (04/30/2025 4:54 AM CDT) WBC 5.40 3.80 - 9.90 K/cumm Hgb 9.4(L) 11.9 - 15.5 g/dL [facility] Hct 28.5(L) 35.6 - 45.5 % [facility] Plt 229 150 - 400 K/cumm [facility] MPV 9.0(L) 9.1 - 12.3 fL [facility] RBC 3.04(L) 3.90 - 5.20 M/cumm [facility] MCV 93.8 81.3 - 96.4 fL [facility] MCH 30.9 27.1 - 33.3 pg [facility] MCHC 33.0 32.3 - 35.7 g/dL [facility] RDW CV 17.9(H) 11.1 - 14.9 % [facility] RDW SD 61.9(H) 35.7 - 48.1 fL [facility] NRBC abs 0.00 0.00 - 0.01 K/cumm [facility] Blood 04/30/2025 4:54 AM CDT 04/30/2025 5:30 AM CDT us Jeri Crawford MD LAB BLOOD ORDERABLES Elena lau Result [facility] Department [place] [address] * (ABNORMAL) Basic metabolic panel (04/30/2025 4:54 AM CDT) [facility] Sodium 138 135 - 145 mmol/L Potassium, pl 3.6 3.3 - 4.9 mmol/L [facility] Chloride 103 97 - 110 mmol/L [facility] CO2 26 22 - 32 mmol/L [facility] Anion gap 9 2 - 15 mmol/L [facility] BUN 11 6 - 25 mg/dL [facility] Creatinine 0.79 0.60 - 1.10 mg/dL [facility] Glucose 78 70 - 199 mg/dL [facility] Comment: Interpretive Data Fasting glucose >/= 126 mg/dl is diagnostic for diabetes. Fasting is defined as no caloric intake for at least 8 hours. Fasting glucose between 100 mg/dl to 125 mg/dl is diagnostic of prediabetes. In a patient with classic symptoms of hyperglycemia or hyperglycemic crisis, a random glucose >/= 200 mg/dl is diagnostic for diabetes. In the absence of unequivocal hyperglycemia, results should be confirmed by repeat testing. The classification and Diagnosis of Diabetes Diabetes Care 2021; 46: S19-S40. Current interpretive data was last revised 2022. Calcium 8.2(L) 8.5 - 10.3 mg/dL [facility] Blood 04/30/2025 4:54 AM CDT 04/30/2025 5:30 AM CDT Jeri Crawford MD LAB BLOOD ORDERABLES Elena l Result Performing Organization Address [facility] de Phone Number [facility] Department [place] [address] * (ABNORMAL) POCT glucose (04/29/2025 7:38 PM CDT) Glucose, POC 268(H) 70 - 199 mg/dL Blood 04/29/2025 7:38 PM CDT 04/29/2025 7:38 PM CDT Jeri Crawford MD LAB POCT ORDERABLES - DEV ICE Final Result Performing Organization Address [facility] de Phone Number [facility] Department [place] [address] * POCT glucose (04/29/2025 5:06 PM CDT) Glucose, POC 172 70 - 199 mg/dL Blood 04/29/2025 5:06 PM CDT 04/29/2025 5:06 PM CDT Jeri Crawford MD LAB POCT ORDERABLES - DEV ICE Final Result Performing Organization Address City/[facility]/ZIP Co de Phone Number [facility] Department [place] [address] * POCT glucose (04/29/2025 12:17 PM CDT) Glucose, POC 127 70 - 199 mg/dL Blood 04/29/2025 12:1 7 PM CDT 04/29/2025 12:17 PM CDT Jeri Crawford MD LAB POCT ORDERABLES - DEV ICE Final Result Performing Organization Address [facility] Co de Phone Number [facility] [place] [address] * POCT glucose (04/29/2025 7:51 AM CDT) Glucose, POC 95 70 - 199 mg/dL Blood 04/29/2025 7:51 AM CDT 04/29/2025 7:51 AM CDT Jeri Crawford MD LAB POCT ORDERABLES - DEV ICE Final Result Performing Organization Address [facility] de Phone Number [facility] [employer] [place] [address] * eGFR (04/29/2025 5:28 AM CDT) eGFR 81 >=60 mL/min/1. 73 m2 Comment: Interpretive Data Reference Interval Normal >/= 90 mL/min/1.73m2 Mildly decreased* 60 - 89 mL/min/1.73m2 Mildly to moderately decreased 45 - 59 mL/min/1.73m2 Moderately to severely decreased 30 - 44 mL/min/1.73m2 Severely decreased 15 - 29 mL/min/1.73m2 Kidney Failure < 15 mL/min/1.73m2 *Relative to young adult level Estimated glomerular filtration rate is determined by the 2020 CKD-EPI equation recommended by the National Kidney Foundation (A Unifying Approach to GFR Estimation: Recommendations of the NKF-ASK Task Force on Reassessing the Inclusion of Race in Diagnosing Kidney Disease, JASN 202). The CKD-EPI equation should not be used for patients with unstable renal function and has not been validated in children and those over 70. Current interpretive data was last reviewed 2021. Blood 04/29/2025 5:28 AM CDT 04/29/2025 5:54 AM CDT Jeri Crawford MD LAB BLOOD ORDERABLES Elena l Result Performing Organization Address City/[facility] Co de Phone Number [facility] Department [place] [address] * (ABNORMAL) CBC without differential (04/29/2025 5:28 AM CDT) WBC 4.56 3.80 - 9.90 K/cumm Hgb 8.8(L) 11.9 - 15.5 g/dL [facility] Hct 27.1(L) 35.6 - 45.5 % [facility] Plt 193 150 - 400 K/cumm [facility] MPV 9.3 9.1 - 12.3 fL [facility] RBC 2.88(L) 3.90 - 5.20 M/cumm [facility] MCV 94.1 81.3 - 96.4 fL [facility] MCH 30.6 27.1 - 33.3 pg [facility] MCHC 32.5 32.3 - 35.7 g/dL [facility] RDW CV 18.0(H) 11.1 - 14.9 % [facility] RDW SD 62.4(H) 35.7 - 48.1 fL [facility] NRBC abs 0.00 0.00 - 0.01 K/cumm [facility] Blood 04/29/2025 5:28 AM CDT 04/29/2025 5:55 AM CDT Jeri Crawford MD LAB BLOOD ORDERABLES Elena l Result [facility] [place] [address] * Phosphorus (04/29/2025 5:28 AM CDT) Pathologist [facility] Phosphorus, pl 3.3 2.3 - 4.5 mg/dL Blood 04/29/2025 5:28 AM CDT 04/29/2025 5:54 AM CDT Jeri Crawford MD LAB BLOOD ORDERABLES Elena l Result Performing Organization Address [facility] Co de Phone Number [facility] [place] [address] * Magnesium (04/29/2025 5:28 AM CDT) [facility] Magnesium 1.8 1.4 - 2.5 mg/dL Blood 04/29/2025 5:28 AM CDT 04/29/2025 5:54 AM CDT Jeri Crawford MD LAB BLOOD ORDERABLES Elena l Result Performing Organization Address [facility] Co de Phone Number [facility] [place] [address] * (ABNORMAL) Hepatic function panel (04/29/2025 5:28 AM CDT) [facility] Bilirubin, total 0.9 0.1 - 1.2 mg/dL Bilirubin, direct 0.3 0.1 - 0.3 mg/dL [facility] Protein, pl 5.9(L) 6.5 - 8.5 g/dL [facility] Albumin 2.4(L) 3.5 - 5.0 g/dL [facility] Alk phos 103 40 - 130 Units/L [facility] ALT 11 7 - 45 Units/L [facility] AST 38 10 - 45 Units/L [facility] Blood 04/29/2025 5:28 AM CDT 04/29/2025 5:54 AM CDT Jeri Crawford MD LAB BLOOD ORDERABLES Elena l Result Performing Organization Address City/[facility]/ZIP Co de Phone Number [facility] Department [place] [address] * (ABNORMAL) Basic metabolic panel (04/29/2025 5:28 AM CDT) [facility] Sodium 136 135 - 145 mmol/L Potassium, pl 4.0 3.3 - 4.9 mmol/L [facility] Chloride 102 97 - 110 mmol/L [facility] CO2 26 22 - 32 mmol/L [facility] Anion gap 8 2 - 15 mmol/L [facility] BUN 13 6 - 25 mg/dL [facility] Creatinine 0.77 0.60 - 1.10 mg/dL [facility] Glucose 118 70 - 199 mg/dL [facility] Comment: Interpretive Data Fasting glucose >/= 126 mg/dl is diagnostic for diabetes. Fasting is defined as no caloric intake for at least 8 hours. Fasting glucose between 100 mg/dl to 125 mg/dl is diagnostic of prediabetes. In a patient with classic symptoms of hyperglycemia or hyperglycemic crisis, a random glucose >/= 200 mg/dl is diagnostic for diabetes. In the absence of unequivocal hyperglycemia, results should be confirmed by repeat testing. The classification and Diagnosis of Diabetes Diabetes Care 2021; 46: S19-S40. Current interpretive data was last revised 2022. Calcium 8.3(L) 8.5 - 10.3 mg/dL [facility] Blood 04/29/2025 5:28 AM CDT 04/29/2025 5:54 AM CDT Jeri Crawford MD LAB BLOOD ORDERABLES Elena l Result Performing Organization Address [facility] Co de Phone Number [facility] Department [place] [address] * POCT glucose (04/28/2025 8:33 PM CDT) Glucose, POC 189 70 - 199 mg/dL Blood 04/28/2025 8:33 PM CDT 04/28/2025 8:33 PM CDT Jeri Crawford MD LAB POCT ORDERABLES - DEV ICE Final Result Performing Organization Address City/[facility] Co de Phone Number [facility] [place] [address] * POCT glucose (04/28/2025 6:19 PM CDT) Glucose, POC 178 70 - 199 mg/dL Blood 04/28/2025 6:19 PM CDT 04/28/2025 6:19 PM CDT Jeri Crawford MD LAB POCT ORDERABLES - DEV ICE Final Result Performing Organization Address [facility] Co de Phone Number [facility] [place] [address] * POCT glucose (04/28/2025 11:58 AM CDT) Glucose, POC 133 70 - 199 mg/dL Blood 04/28/2025 11:5 8 AM CDT 04/28/2025 11:58 AM CDT Jeri Crawford MD LAB POCT ORDERABLES - DEV ICE Final Result Performing Organization Address City/[facility] Co de Phone Number [facility] [place] [address] * POCT glucose (04/28/2025 7:32 AM CDT) Glucose, POC 92 70 - 199 mg/dL Blood 04/28/2025 7:32 AM CDT 04/28/2025 7:32 AM CDT Jeri Crawford MD LAB POCT ORDERABLES - DEV ICE Final Result Performing Organization Address [facility] Co de Phone Number [facility] [place] [address] * (ABNORMAL) POCT glucose (04/27/2025 7:21 PM CDT) Glucose, POC 252(H) 70 - 199 mg/dL Comment:Glu2: RN/MD Notified Glucose comment 1 Glu2: RN/MD Notified [facility] Blood 04/27/2025 7:21 PM CDT 04/27/2025 7:21 PM CDT Jeri Crawford MD LAB POCT ORDERABLES - DEV ICE Final Result Performing Organization Address [facility] Co de Phone Number [facility] [place] [address] * (ABNORMAL) POCT glucose (04/27/2025 5:41 PM CDT) Glucose, POC 207(H) 70 - 199 mg/dL Comment:Glu2: RN/MD Notified Glucose comment 1 Glu2: RN/MD Notified [facility] Blood 04/27/2025 5:41 PM CDT 04/27/2025 5:41 PM CDT Jeri Crawford MD LAB POCT ORDERABLES - DEV ICE Final Result Performing Organization Address [facility] Co de Phone Number [facility] [place] [address] * POCT glucose (04/27/2025 12:00 PM CDT) Glucose, POC 152 70 - 199 mg/dL Blood 04/27/2025 12:0 0 PM CDT 04/27/2025 12:00 PM CDT Jeri Crawford MD LAB POCT ORDERABLES - DEV ICE Final Result Performing Organization Address City/[facility] Co de Phone Number [facility] [place] [address] * POCT glucose (04/27/2025 8:15 AM CDT) Glucose, POC 95 70 - 199 mg/dL Blood 04/27/2025 8:15 AM CDT 04/27/2025 8:15 AM CDT Jeri Crawford MD LAB POCT ORDERABLES - DEV ICE Final Result Performing Organization Address [facility] Co de Phone Number [facility] [place] [address] * eGFR (04/27/2025 6:27 AM CDT) eGFR 79 >=60 mL/min/1. 73 m2 Comment: Interpretive Data Reference Interval Normal >/= 90 mL/min/1.73m2 Mildly decreased* 60 - 89 mL/min/1.73m2 Mildly to moderately decreased 45 - 59 mL/min/1.73m2 Moderately to severely decreased 30 - 44 mL/min/1.73m2 Severely decreased 15 - 29 mL/min/1.73m2 Kidney Failure < 15 mL/min/1.73m2 *Relative to young adult level Estimated glomerular filtration rate is determined by the 2020 CKD-EPI equation recommended by the National Kidney Foundation (A Unifying Approach to GFR Estimation: Recommendations of the NKF-ASK Task Force on Reassessing the Inclusion of Race in Diagnosing Kidney Disease, JASN 2020). The CKD-EPI equation should not be used for patients with unstable renal function and has not been validated in children and those over 70. Current interpretive data was last reviewed 2021. Blood 04/27/2025 6:27 AM CDT 04/27/2025 7:37 AM CDT us Jeri Crawford MD LAB BLOOD ORDERABLES Elena l Result Performing Organization Address [facility]/ZIP Co de Phone Number [facility] Department [place] [address] * (ABNORMAL) CBC without differential (04/27/2025 6:27 AM CDT) WBC 5.25 3.80 - 9.90 K/cumm Hgb 10.2(L) 11.9 - 15.5 g/dL [facility] Hct 31.6(L) 35.6 - 45.5 % [facility] Plt 185 150 - 400 K/cumm [facility] MPV 9.1 9.1 - 12.3 fL [facility] RBC 3.33(L) 3.90 - 5.20 M/cumm [facility] MCV 94.9 81.3 - 96.4 fL [facility] MCH 30.6 27.1 - 33.3 pg [facility] MCHC 32.3 32.3 - 35.7 g/dL [facility] RDW CV 18.7(H) 11.1 - 14.9 % [facility] RDW SD 64.5(H) 35.7 - 48.1 fL [facility] NRBC abs 0.00 0.00 - 0.01 K/cumm [facility] Blood 04/27/2025 6:27 AM CDT 04/27/2025 7:37 AM CDT us Julienne Ramon MD LAB BLOOD ORDERABLES Final Result Performing Organization Address City/[facility]/ZIP Co de Phone Number [facility] Department [place] [address] * Magnesium (04/27/2025 6:27 AM CDT) Magnesium 1.9 1.4 - 2.5 mg/dL Blood 04/27/2025 6:27 AM CDT 04/27/2025 7:37 AM CDT Jeri Crawford MD LAB BLOOD ORDERABLES Elena l Result Performing Organization Address [facility] Co de Phone Number [facility] Department [place] [address] * Basic metabolic panel (04/27/2025 6:27 AM CDT) [facility] Sodium 136 135 - 145 mmol/L Potassium, pl 4.3 3.3 - 4.9 mmol/L [facility] Chloride 101 97 - 110 mmol/L [facility] CO2 24 22 - 32 mmol/L [facility] Anion gap 11 2 - 15 mmol/L [facility] BUN 14 6 - 25 mg/dL [facility] Creatinine 0.79 0.60 - 1.10 mg/dL [facility] Glucose 88 70 - 199 mg/dL [facility] Comment: Interpretive Data Fasting glucose >/= 126 mg/dl is diagnostic for diabetes. Fasting is defined as no caloric intake for at least 8 hours. Fasting glucose between 100 mg/dl to 125 mg/dl is diagnostic of prediabetes. In a patient with classic symptoms of hyperglycemia or hyperglycemic crisis, a random glucose >/= 200 mg/dl is diagnostic for diabetes. In the absence of unequivocal hyperglycemia, results should be confirmed by repeat testing. The classification and Diagnosis of Diabetes Diabetes Care 2021; 46: S19-S40. Current interpretive data was last revised 2022. Calcium 8.6 8.5 - 10.3 mg/dL [facility] Blood 04/27/2025 6:27 AM CDT 04/27/2025 7:37 AM CDT Jeri Crawford MD LAB BLOOD ORDERABLES Elena l Result Performing Organization Address [facility] Co de Phone Number [facility] Department [place] [address] * POCT glucose (04/26/2025 8:05 PM CDT) Glucose, POC 193 70 - 199 mg/dL Blood 04/26/2025 8:05 PM CDT 04/26/2025 8:05 PM CDT Jeri Crawford MD LAB POCT ORDERABLES - DEV ICE Final Result Performing Organization Address City/[facility] de Phone Number [facility] [place] [address] * (ABNORMAL) POCT glucose (04/26/2025 5:46 PM CDT) Glucose, POC 214(H) 70 - 199 mg/dL Blood 04/26/2025 5:46 PM CDT 04/26/2025 5:46 PM CDT Jeri Crawford MD LAB POCT ORDERABLES - DEV ICE Final Result Performing Organization Address [facility] de Phone Number [facility] [place] [address] * POCT glucose (04/26/2025 12:53 PM CDT) Glucose, POC 160 70 - 199 mg/dL Blood 04/26/2025 12:5 3 PM CDT 04/26/2025 12:53 PM CDT Jeri Crawford MD LAB POCT ORDERABLES - DEV ICE Final Result Performing Organization Address [facility] de Phone Number [facility] [place] [address] * POCT glucose (04/26/2025 8:50 AM CDT) Glucose, POC 78 70 - 199 mg/dL Blood 04/26/2025 8:50 AM CDT 04/26/2025 8:50 AM CDT Jeri Crawford MD LAB POCT ORDERABLES - DEV ICE Final Result Performing Organization Address [facility] Co de Phone Number [facility] Department [place] [address] * eGFR (04/26/2025 6:24 AM CDT) eGFR 62 >=60 mL/min/1. 73 m2 Comment: Interpretive Data Reference Interval Normal >/= 90 mL/min/1.73m2 Mildly decreased* 60 - 89 mL/min/1.73m2 Mildly to moderately decreased 45 - 59 mL/min/1.73m2 Moderately to severely decreased 30 - 44 mL/min/1.73m2 Severely decreased 15 - 29 mL/min/1.73m2 Kidney Failure < 15 mL/min/1.73m2 *Relative to young adult level Estimated glomerular filtration rate is determined by the 2020 CKD-EPI equation recommended by the National Kidney Foundation (A Unifying Approach to GFR Estimation: Recommendations of the NKF-ASK Task Force on Reassessing the Inclusion of Race in Diagnosing Kidney Disease, JASN 2020). The CKD-EPI equation should not be used for patients with unstable renal function and has not been validated in children and those over 70. Current interpretive data was last reviewed 2021. Blood 04/26/2025 6:24 AM CDT 04/26/2025 6:46 AM CDT us Jeri Crawford MD LAB BLOOD ORDERABLES Elena l Result Performing Organization Address City/[facility]/ZIP Co de Phone Number [facility] Department [place] [address] * (ABNORMAL) CBC without differential (04/26/2025 6:24 AM CDT) WBC 4.36 3.80 - 9.90 K/cumm Hgb 8.9(L) 11.9 - 15.5 g/dL [facility] Hct 27.4(L) 35.6 - 45.5 % [facility] Plt 144(L) 150 - 400 K/cumm [facility] MPV 9.3 9.1 - 12.3 fL [facility] RBC 2.93(L) 3.90 - 5.20 M/cumm [facility] MCV 93.5 81.3 - 96.4 fL [facility] MCH 30.4 27.1 - 33.3 pg [facility] MCHC 32.5 32.3 - 35.7 g/dL [facility] RDW CV 18.5(H) 11.1 - 14.9 % [facility] RDW SD 63.3(H) 35.7 - 48.1 fL [facility] NRBC abs 0.00 0.00 - 0.01 K/cumm [facility] Blood 04/26/2025 6:24 AM CDT 04/26/2025 6:47 AM CDT Julienne Ramon MD LAB BLOOD ORDERABLES Final Result [facility] Department [place] [address] * Magnesium (04/26/2025 6:24 AM CDT) Pathologist [facility] Magnesium 1.7 1.4 - 2.5 mg/dL Blood 04/26/2025 6:24 AM CDT 04/26/2025 6:46 AM CDT Jeri Crawford MD LAB BLOOD ORDERABLES Elena l Result [facility] Department [place] [address] * (ABNORMAL) Basic metabolic panel (04/26/2025 6:24 AM CDT) Sodium 135 135 - 145 mmol/L Potassium, pl 3.4 3.3 - 4.9 mmol/L [facility] Chloride 101 97 - 110 mmol/L [facility] CO2 25 22 - 32 mmol/L [facility] Anion gap 9 2 - 15 mmol/L [facility] BUN 16 6 - 25 mg/dL [facility] Creatinine 0.96 0.60 - 1.10 mg/dL [facility] Glucose 74 70 - 199 mg/dL [facility] Comment: Interpretive Data Fasting glucose >/= 126 mg/dl is diagnostic for diabetes. Fasting is defined as no caloric intake for at least 8 hours. Fasting glucose between 100 mg/dl to 125 mg/dl is diagnostic of prediabetes. In a patient with classic symptoms of hyperglycemia or hyperglycemic crisis, a random glucose >/= 200 mg/dl is diagnostic for diabetes. In the absence of unequivocal hyperglycemia, results should be confirmed by repeat testing. The classification and Diagnosis of Diabetes Diabetes Care 202; 46: S19-S40. Current interpretive data was last revised 2022. Calcium 8.1(L) 8.5 - 10.3 mg/dL [facility] Blood 04/26/2025 6:24 AM CDT 04/26/2025 6:46 AM CDT us Jeri Crawford MD LAB BLOOD ORDERABLES Elena l Result [facility] Department [place] [address] * (ABNORMAL) POCT glucose (04/25/2025 8:12 PM CDT) Glucose, POC 231(H) 70 - 199 mg/dL Blood 04/25/2025 8:12 PM CDT 04/25/2025 8:12 PM CDT Jeri Crawford MD LAB POCT ORDERABLES - DEV ICE Final Result Performing Organization Address City/[facility]/ZIP Co de Phone Number [facility] Department [place] [address] * POCT glucose (04/25/2025 5:30 PM CDT) Glucose, POC 195 70 - 199 mg/dL Blood 04/25/2025 5:30 PM CDT 04/25/2025 5:30 PM CDT Jeri Crawford MD LAB POCT ORDERABLES - DEV ICE Final Result Performing Organization Address City/[facility] de Phone Number [facility] [place] [address] * POCT glucose (04/25/2025 11:55 AM CDT) Glucose, POC 166 70 - 199 mg/dL Blood 04/25/2025 11:5 5 AM CDT 04/25/2025 11:55 AM CDT Jeri Crawford MD LAB POCT ORDERABLES - DEV ICE Final Result Performing Organization Address [facility] de Phone Number [facility] [place] [address] * POCT glucose (04/25/2025 7:49 AM CDT) Glucose, POC 149 70 - 199 mg/dL Blood 04/25/2025 7:49 AM CDT 04/25/2025 7:49 AM CDT Jeri Crawford MD LAB POCT ORDERABLES - DEV ICE Final Result Performing Organization Address [facility] de Phone Number [facility] [place] [address] * (ABNORMAL) eGFR (04/25/2025 5:17 AM CDT) eGFR 48(L) >=60 mL/min/1. 73 m2 Comment: Interpretive Data Reference Interval Normal >/= 90 mL/min/1.73m2 Mildly decreased* 60 - 89 mL/min/1.73m2 Mildly to moderately decreased 45 - 59 mL/min/1.73m2 Moderately to severely decreased 30 - 44 mL/min/1.73m2 Severely decreased 15 - 29 mL/min/1.73m2 Kidney Failure < 15 mL/min/1.73m2 *Relative to young adult level Estimated glomerular filtration rate is determined by the 2020 CKD-EPI equation recommended by the National Kidney Foundation (A Unifying Approach to GFR Estimation: Recommendations of the NKF-ASK Task Force on Reassessing the Inclusion of Race in Diagnosing Kidney Disease, JASN 2020). The CKD-EPI equation should not be used for patients with unstable renal function and has not been validated in children and those over 70. Current interpretive data was last reviewed 2021. Blood 04/25/2025 5:17 AM CDT 04/25/2025 6:26 AM CDT us Jeri Crawford MD LAB BLOOD ORDERABLES Elena lau Result [facility] Department [place] [address] * (ABNORMAL) CBC without differential (04/25/2025 5:17 AM CDT) WBC 5.26 3.80 - 9.90 K/cumm Hgb 8.8(L) 11.9 - 15.5 g/dL [facility] Hct 26.5(L) 35.6 - 45.5 % [facility] Plt 118(L) 150 - 400 K/cumm [facility] MPV 9.5 9.1 - 12.3 fL [facility] RBC 2.81(L) 3.90 - 5.20 M/cumm [facility] MCV 94.3 81.3 - 96.4 fL [facility] MCH 31.3 27.1 - 33.3 pg [facility] MCHC 33.2 32.3 - 35.7 g/dL [facility] RDW CV 18.6(H) 11.1 - 14.9 % [facility] RDW SD 64.1(H) 35.7 - 48.1 fL [facility] NRBC abs 0.00 0.00 - 0.01 K/cumm [facility] Blood 04/25/2025 5:17 AM CDT 04/25/2025 6:27 AM CDT Julienne Ramon MD LAB BLOOD ORDERABLES Final Result [facility] [place] [address] * Phosphorus (04/25/2025 5:17 AM CDT) Pathologist [facility] Phosphorus, pl 4.0 2.3 - 4.5 mg/dL Blood 04/25/2025 5:17 AM CDT 04/25/2025 6:26 AM CDT Jeri Crawford MD LAB BLOOD ORDERABLES Elena l Result Performing Organization Address City/[facility]/ZIP Co de Phone Number [facility] Department [place] [address] * Magnesium (04/25/2025 5:17 AM CDT) Pathologist [facility] Magnesium 1.6 1.4 - 2.5 mg/dL Blood 04/25/2025 5:17 AM CDT 04/25/2025 6:26 AM CDT Jeri Crawford MD LAB BLOOD ORDERABLES Elena l Result Performing Organization Address City/[facility] Co de Phone Number [facility] [place] [address] * (ABNORMAL) Basic metabolic panel (04/25/2025 5:17 AM CDT) Sodium 134(L) 135 - 145 mmol/L Potassium, pl 3.6 3.3 - 4.9 mmol/L [facility] Chloride 97 97 - 110 mmol/L [facility] CO2 26 22 - 32 mmol/L [facility] Anion gap 11 2 - 15 mmol/L [facility] BUN 18 6 - 25 mg/dL [facility] Creatinine 1.20(H) 0.60 - 1.10 mg/dL [facility] Glucose 151 70 - 199 mg/dL [facility] Comment: Interpretive Data Fasting glucose >/= 126 mg/dl is diagnostic for diabetes. Fasting is defined as no caloric intake for at least 8 hours. Fasting glucose between 100 mg/dl to 125 mg/dl is diagnostic of prediabetes. In a patient with classic symptoms of hyperglycemia or hyperglycemic crisis, a random glucose >/= 200 mg/dl is diagnostic for diabetes. In the absence of unequivocal hyperglycemia, results should be confirmed by repeat testing. The classification and Diagnosis of Diabetes Diabetes Care 2021; 46: S19-S40. Current interpretive data was last revised 2022. Calcium 8.4(L) 8.5 - 10.3 mg/dL [facility] Blood 04/25/2025 5:17 AM CDT 04/25/2025 6:26 AM CDT Jeri Crawford MD LAB BLOOD ORDERABLES Elena l Result [facility] Department [place] [address] * (ABNORMAL) POCT glucose (04/24/2025 7:45 PM CDT) Pathologist [facility] Glucose, POC 274(H) 70 - 199 mg/dL Comment:Glu2: RN/ Notified Glucose comment 1 Glu2: RN/ Notified [facility] Blood 04/24/2025 7:45 PM CDT 04/24/2025 7:45 PM CDT Jeri Crawford MD LAB POCT ORDERABLES - DEV ICE Final Result [facility] [place] [facility] Department [place] [address] * XR Abdomen 1 View AP (04/24/2025 6:53 PM CDT) Anatomical Region Laterality Modality Body, Abdomen N/A Computed Radiogr aphy 04/25/2025 8:54 AM CDT Impressions 04/25/2025 8:54 AM CDT 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 Right pelvic vascular stent. Embolization coils project over the right lower quadrant of the abdomen. Splenic artery calcifications. The bowel gas pattern is normal. The radiology attending physician has personally reviewed this study, and had reviewed and/or edited this written report and agrees with it. Electronically signed by: Esteban Ching M.D. Narrative 04/25/2025 8:54 AM CDT EXAMINATION: Abdomen, one view. HISTORY: Right lower quadrant pain COMPARISON: 04/11/2025 CT Procedure Note Esteban Ching MD - 04/25/2025 EXAMINATION: Abdomen, one view. 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 Right pelvic vascular stent. Embolization coils project over the right lower quadrant of the abdomen. Splenic artery calcifications. The bowel gas pattern is normal. The radiology attending physician has personally reviewed this study, and had reviewed and/or edited this written report and agrees with it. Electronically signed by: Esteban Ching M.D. Jeri Crawford MD IMG XR PROCEDURES Final R esult * (ABNORMAL) POCT glucose (04/24/2025 5:41 PM CDT) Glucose, POC 234(H) 70 - 199 mg/dL Blood 04/24/2025 5:41 PM CDT 04/24/2025 5:41 PM CDT Jeri Crawford MD LAB POCT ORDERABLES - DEV ICE Final Result Performing Organization Address [facility] Co de Phone Number [facility] Department [place] [address] * ECG 12 lead (04/24/2025 4:57 PM CDT) Ventricular Rate EKG/Min 93 BPM [facility] Atrial Rate 93 BPM [facility] CO-Interval (MSEC) 224 ms [facility] QRS-Interval (MSEC) 92 ms [facility] QT-Interval (MSEC) 382 ms [facility] QTc 474 ms [facility] P Howe 42 degrees [facility] R Howe -5 degrees [facility] T Howe 68 degrees [facility] Diagnosis Sinus rhythm with 1st degree A-V block Minimal voltage criteria for LVH, may be normal variant ( Siddhartha product ) Poor precordial R wave progression consistent with faulty lead placement, copd, etc. ; consider anterior infarct, lead placement, or normal variant Abnormal ECG When compared with ECG of 15-APR-2025 08:25, No significant change was found Confirmed by TRAE PRICE M.D ([id number]) on 04/25/2025 11:42:31 AM [facility] 04/24/2025 4:57 PM CDT 04/25/2025 11:42 AM CDT Jeri Crawford MD ECG ORDERABLES Final Res ult Performing Organization Address [facility] de Phone Number [facility] * POCT glucose (04/24/2025 12:38 PM CDT) Glucose, POC 182 70 - 199 mg/dL Blood 04/24/2025 12:3 8 PM CDT 04/24/2025 12:38 PM CDT Jeri Crawford MD LAB POCT ORDERABLES - DEV ICE Final Result Performing Organization Address [facility] Co de Phone Number [facility] Department [place] [address] * Infection Prevention Krystal auris PCR, surveillance Axilla/Groin (04/24/2025 11:12 AM CDT) [facility] Krystal auris DNA Not Detected Not Detected [facility] Comment: Interpretive Data Testing performed by [facility] using the Florentin pawel 6800 Krystal auris assay. This assay detects DNA from Krystal auris using Real-Time PCR. This assay is laboratory developed and is not cleared by the [facility] Food and Drug Administration. The performance characteristics have been verified by the [facility]. Axilla/Groin 04/24/2025 11:1 2 AM CDT 04/24/2025 12:51 PM CDT Clive Colmenares MD LAB MICROBIOLOGY - GENERAL ORDER JACQUELINE Final Result Performing Organization Address City/[facility]/ZIP Co de Phone Number [facility] Department [place] [address] [facility] * POCT glucose (04/24/2025 8:18 AM CDT) [facility] Glucose, POC 127 70 - 199 mg/dL Blood 04/24/2025 8:18 AM CDT 04/24/2025 8:18 AM CDT Jeri Crawford MD LAB POCT ORDERABLES - DEV ICE Final Result [facility] [place] [address] * (ABNORMAL) CBC without differential (04/24/2025 5:53 AM CDT) [facility] WBC 5.83 3.80 - 9.90 K/cumm Hgb 9.7(L) 11.9 - 15.5 g/dL [facility] Hct 29.5(L) 35.6 - 45.5 % [facility] Plt 117(L) 150 - 400 K/cumm [facility] MPV 9.6 9.1 - 12.3 fL [facility] RBC 3.15(L) 3.90 - 5.20 M/cumm [facility] MCV 93.7 81.3 - 96.4 fL [facility] MCH 30.8 27.1 - 33.3 pg [facility] MCHC 32.9 32.3 - 35.7 g/dL [facility] RDW CV 18.8(H) 11.1 - 14.9 % [facility] RDW SD 63.2(H) 35.7 - 48.1 fL [facility] NRBC abs 0.00 0.00 - 0.01 K/cumm [facility] Blood 04/24/2025 5:53 AM CDT 04/24/2025 6:27 AM CDT us Julienne Ramon MD LAB BLOOD ORDERABLES Final Result [facility] [place] [employer] [place] [address] * (ABNORMAL) POCT glucose (04/23/2025 10:31 PM CDT) Glucose, POC 213(H) 70 - 199 mg/dL Blood 04/23/2025 10:3 1 PM CDT 04/23/2025 10:31 PM CDT us Jeri Crawford MD LAB POCT ORDERABLES - DEV ICE Final Result [facility] [place] [address] * (ABNORMAL) POCT glucose (04/23/2025 7:44 PM CDT) Glucose, POC 245(H) 70 - 199 mg/dL Blood 04/23/2025 7:44 PM CDT 04/23/2025 7:44 PM CDT Jeri Crawford MD LAB POCT ORDERABLES - DEV ICE Final Result Performing Organization Address [facility] de Phone Number [facility] [place] [address] * (ABNORMAL) POCT glucose (04/23/2025 5:21 PM CDT) Glucose, POC 243(H) 70 - 199 mg/dL Blood 04/23/2025 5:21 PM CDT 04/23/2025 5:21 PM CDT Jeri Crawford MD LAB POCT ORDERABLES - DEV ICE Final Result Performing Organization Address [facility] de Phone Number [facility] [place] [address] * (ABNORMAL) POCT glucose (04/23/2025 12:31 PM CDT) Glucose, POC 202(H) 70 - 199 mg/dL Blood 04/23/2025 12:3 1 PM CDT 04/23/2025 12:31 PM CDT Jeri Crawford MD LAB POCT ORDERABLES - DEV ICE Final Result Performing Organization Address [facility] de Phone Number [facility] [place] [address] * POCT glucose (04/23/2025 7:38 AM CDT) Glucose, POC 129 70 - 199 mg/dL Blood 04/23/2025 7:38 AM CDT 04/23/2025 7:38 AM CDT Jeri Crawford MD LAB POCT ORDERABLES - DEV ICE Final Result Performing Organization Address [facility] Co de Phone Number [facility] Department [place] [address] * (ABNORMAL) CBC without differential (04/23/2025 5:04 AM CDT) WBC 5.32 3.80 - 9.90 K/cumm Hgb 8.8(L) 11.9 - 15.5 g/dL [facility] Hct 27.1(L) 35.6 - 45.5 % [facility] Plt 104(L) 150 - 400 K/cumm [facility] MPV 9.5 9.1 - 12.3 fL [facility] RBC 2.85(L) 3.90 - 5.20 M/cumm [facility] MCV 95.1 81.3 - 96.4 fL [facility] MCH 30.9 27.1 - 33.3 pg [facility] MCHC 32.5 32.3 - 35.7 g/dL [facility] RDW CV 18.5(H) 11.1 - 14.9 % [facility] RDW SD 61.5(H) 35.7 - 48.1 fL [facility] NRBC abs 0.00 0.00 - 0.01 K/cumm [facility] Blood 04/23/2025 5:04 AM CDT 04/23/2025 5:38 AM CDT Julienne Ramon MD LAB BLOOD ORDERABLES Final Result [facility] Department [place] [address] * (ABNORMAL) POCT glucose (04/22/2025 7:29 PM CDT) Glucose, POC 276(H) 70 - 199 mg/dL Blood 04/22/2025 7:29 PM CDT 04/22/2025 7:29 PM CDT Lesia Hodges MD LAB POCT ORDERABLES - DEVICE F inal Result Performing Organization Address [facility] de Phone Number [facility] [place] [address] * (ABNORMAL) POCT glucose (04/22/2025 5:26 PM CDT) Glucose, POC 255(H) 70 - 199 mg/dL Blood 04/22/2025 5:26 PM CDT 04/22/2025 5:26 PM CDT Lesia Hodges MD LAB POCT ORDERABLES - DEVICE F inal Result Performing Organization Address [facility] de Phone Number [facility] [place] [address] * (ABNORMAL) POCT glucose (04/22/2025 11:18 AM CDT) Glucose, POC 276(H) 70 - 199 mg/dL Blood 04/22/2025 11:1 8 AM CDT 04/22/2025 11:18 AM CDT Lesia Hodges MD LAB POCT ORDERABLES - DEVICE F inal Result Performing Organization Address [facility] de Phone Number [facility] [place] [address] * POCT glucose (04/22/2025 7:40 AM CDT) Glucose, POC 175 70 - 199 mg/dL Blood 04/22/2025 7:40 AM CDT 04/22/2025 7:40 AM CDT Lesia Hodges MD LAB POCT ORDERABLES - DEVICE F inal Result [facility] Department [place] [address] * eGFR (04/22/2025 4:09 AM CDT) Pathologist [facility] eGFR 68 >=60 mL/min/1. 73 m2 Comment: Interpretive Data Reference Interval Normal >/= 90 mL/min/1.73m2 Mildly decreased* 60 - 89 mL/min/1.73m2 Mildly to moderately decreased 45 - 59 mL/min/1.73m2 Moderately to severely decreased 30 - 44 mL/min/1.73m2 Severely decreased 15 - 29 mL/min/1.73m2 Kidney Failure < 15 mL/min/1.73m2 *Relative to young adult level Estimated glomerular filtration rate is determined by the 2020 CKD-EPI equation recommended by the National Kidney Foundation (A Unifying Approach to GFR Estimation: Recommendations of the NKF-ASK Task Force on Reassessing the Inclusion of Race in Diagnosing Kidney Disease, JASN 2020). The CKD-EPI equation should not be used for patients with unstable renal function and has not been validated in children and those over 70. Current interpretive data was last reviewed 2021. Blood 04/22/2025 4:09 AM CDT 04/22/2025 6:03 AM CDT us Jeri Crawford MD LAB BLOOD ORDERABLES Elena lau Result [facility] Department [place] [address] * (ABNORMAL) CBC without differential (04/22/2025 4:09 AM CDT) Pathologist [facility] WBC 6.16 3.80 - 9.90 K/cumm Hgb 9.1(L) 11.9 - 15.5 g/dL [facility] Hct 27.0(L) 35.6 - 45.5 % [facility] Plt 115(L) 150 - 400 K/cumm [facility] MPV 9.7 9.1 - 12.3 fL [facility] RBC 2.88(L) 3.90 - 5.20 M/cumm [facility] MCV 93.8 81.3 - 96.4 fL [facility] MCH 31.6 27.1 - 33.3 pg [facility] MCHC 33.7 32.3 - 35.7 g/dL [facility] RDW CV 18.6(H) 11.1 - 14.9 % [facility] RDW SD 62.4(H) 35.7 - 48.1 fL [facility] NRBC abs 0.00 0.00 - 0.01 K/cumm [facility] Blood 04/22/2025 4:09 AM CDT 04/22/2025 6:03 AM CDT us Julienne Ramon MD LAB BLOOD ORDERABLES Final Result Performing Organization Address [facility] Co de Phone Number [facility] Department [place] [address] * Phosphorus (04/22/2025 4:09 AM CDT) Phosphorus, pl 3.3 2.3 - 4.5 mg/dL Blood 04/22/2025 4:09 AM CDT 04/22/2025 6:03 AM CDT us Jeri Crawford MD LAB BLOOD ORDERABLES Elena l Result Performing Organization Address [facility]/ZIP Co de Phone Number [facility] [place] [address] * Magnesium (04/22/2025 4:09 AM CDT) Magnesium 1.8 1.4 - 2.5 mg/dL Blood 04/22/2025 4:09 AM CDT 04/22/2025 6:03 AM CDT Jeri Crawford MD LAB BLOOD ORDERABLES Elena l Result Performing Organization Address [facility] Co de Phone Number [facility] Department [place] [address] * (ABNORMAL) Hepatic function panel (04/22/2025 4:09 AM CDT) Bilirubin, total 1.4(H) 0.1 - 1.2 mg/dL Bilirubin, direct 0.4(H) 0.1 - 0.3 mg/dL [facility] Protein, pl 5.9(L) 6.5 - 8.5 g/dL [facility] Albumin 2.4(L) 3.5 - 5.0 g/dL [facility] Alk phos 114 40 - 130 Units/L [facility] ALT 13 7 - 45 Units/L [facility] AST 44 10 - 45 Units/L [facility] Blood 04/22/2025 4:09 AM CDT 04/22/2025 6:03 AM CDT us Jeri Crawford MD LAB BLOOD ORDERABLES Elena l Result Performing Organization Address [facility] de Phone Number [facility] Department [place] [address] * (ABNORMAL) Basic metabolic panel (04/22/2025 4:09 AM CDT) Sodium 134(L) 135 - 145 mmol/L Potassium, pl 4.1 3.3 - 4.9 mmol/L [facility] Chloride 100 97 - 110 mmol/L [facility] CO2 26 22 - 32 mmol/L [facility] Anion gap 8 2 - 15 mmol/L [facility] BUN 14 6 - 25 mg/dL [facility] Creatinine 0.90 0.60 - 1.10 mg/dL [facility] Glucose 181 70 - 199 mg/dL [facility] Comment: Interpretive Data Fasting glucose >/= 126 mg/dl is diagnostic for diabetes. Fasting is defined as no caloric intake for at least 8 hours. Fasting glucose between 100 mg/dl to 125 mg/dl is diagnostic of prediabetes. In a patient with classic symptoms of hyperglycemia or hyperglycemic crisis, a random glucose >/= 200 mg/dl is diagnostic for diabetes. In the absence of unequivocal hyperglycemia, results should be confirmed by repeat testing. The classification and Diagnosis of Diabetes Diabetes Care 2021; 46: S19-S40. Current interpretive data was last revised 2022. Calcium 8.1(L) 8.5 - 10.3 mg/dL [facility] Blood 04/22/2025 4:09 AM CDT 04/22/2025 6:03 AM CDT Jeri Crawford MD LAB BLOOD ORDERABLES Elena l Result Performing Organization Address [facility] Co de Phone Number [facility] [place] [address] * (ABNORMAL) POCT glucose (04/21/2025 11:16 PM CDT) Glucose, POC 231(H) 70 - 199 mg/dL Blood 04/21/2025 11:1 6 PM CDT 04/21/2025 11:16 PM CDT Lesia Hodges MD LAB POCT ORDERABLES - DEVICE F inal Result Performing Organization Address [facility] de Phone Number [facility] [place] [address] * (ABNORMAL) POCT glucose (04/21/2025 8:24 PM CDT) Glucose, POC 334(H) 70 - 199 mg/dL Blood 04/21/2025 8:24 PM CDT 04/21/2025 8:24 PM CDT Lesia Hodges MD LAB POCT ORDERABLES - DEVICE F inal Result Performing Organization Address [facility] Co de Phone Number [facility] Department [place] [address] * (ABNORMAL) POCT glucose (04/21/2025 4:30 PM CDT) Glucose, POC 236(H) 70 - 199 mg/dL Blood 04/21/2025 4:30 PM CDT 04/21/2025 4:30 PM CDT Lesia Hodges MD LAB POCT ORDERABLES - DEVICE F inal Result Performing Organization Address [facility] Co de Phone Number [facility] [place] [address] * POCT glucose (04/21/2025 11:27 AM CDT) Glucose, POC 160 70 - 199 mg/dL Blood 04/21/2025 11:2 7 AM CDT 04/21/2025 11:27 AM CDT Lesia Hodges MD LAB POCT ORDERABLES - DEVICE F inal Result Performing Organization Address [facility] Co de Phone Number [facility] Department [place] [address] * POCT glucose (04/21/2025 7:46 AM CDT) Pathologist [facility] Glucose, POC 167 70 - 199 mg/dL Blood 04/21/2025 7:46 AM CDT 04/21/2025 7:46 AM CDT Lesia Hodges MD LAB POCT ORDERABLES - DEVICE F inal Result Performing Organization Address [facility] Co de Phone Number [facility] [place] [address] * (ABNORMAL) CBC without differential (04/21/2025 5:02 AM CDT) [facility] WBC 4.94 3.80 - 9.90 K/cumm Hgb 8.8(L) 11.9 - 15.5 g/dL [facility] Hct 27.6(L) 35.6 - 45.5 % [facility] Plt 116(L) 150 - 400 K/cumm [facility] MPV 9.6 9.1 - 12.3 fL [facility] RBC 2.91(L) 3.90 - 5.20 M/cumm [facility] MCV 94.8 81.3 - 96.4 fL [facility] MCH 30.2 27.1 - 33.3 pg [facility] MCHC 31.9(L) 32.3 - 35.7 g/dL [facility] RDW CV 18.6(H) 11.1 - 14.9 % [facility] RDW SD 63.2(H) 35.7 - 48.1 fL [facility] NRBC abs 0.00 0.00 - 0.01 K/cumm [facility] Blood 04/21/2025 5:02 AM CDT 04/21/2025 6:24 AM CDT us Julienne Ramon MD LAB BLOOD ORDERABLES Final Result [facility] Department [place] [address] * (ABNORMAL) POCT glucose (04/20/2025 8:07 PM CDT) [facility] Glucose, POC 232(H) 70 - 199 mg/dL Blood 04/20/2025 8:07 PM CDT 04/20/2025 8:07 PM CDT us Lesia Hodges MD LAB POCT ORDERABLES - DEVICE F inal Result [facility] [place] [address] * (ABNORMAL) POCT glucose (04/20/2025 5:02 PM CDT) Glucose, POC 231(H) 70 - 199 mg/dL Blood 04/20/2025 5:02 PM CDT 04/20/2025 5:02 PM CDT Lesia Hodges MD LAB POCT ORDERABLES - DEVICE F inal Result Performing Organization Address [facility] Co de Phone Number [facility] [place] [address] * (ABNORMAL) POCT glucose (04/20/2025 11:13 AM CDT) Glucose, POC 234(H) 70 - 199 mg/dL Blood 04/20/2025 11:1 3 AM CDT 04/20/2025 11:13 AM CDT Lesia Hodges MD LAB POCT ORDERABLES - DEVICE F inal Result Performing Organization Address [facility] de Phone Number [facility] [place] [address] * POCT glucose (04/20/2025 8:01 AM CDT) Glucose, POC 146 70 - 199 mg/dL Blood 04/20/2025 8:01 AM CDT 04/20/2025 8:01 AM CDT Lesia Hodges MD LAB POCT ORDERABLES - DEVICE F inal Result Performing Organization Address [facility] de Phone Number [facility] [place] [address] * eGFR (04/20/2025 4:42 AM CDT) eGFR 72 >=60 mL/min/1. 73 m2 Comment: Interpretive Data Reference Interval Normal >/= 90 mL/min/1.73m2 Mildly decreased* 60 - 89 mL/min/1.73m2 Mildly to moderately decreased 45 - 59 mL/min/1.73m2 Moderately to severely decreased 30 - 44 mL/min/1.73m2 Severely decreased 15 - 29 mL/min/1.73m2 Kidney Failure < 15 mL/min/1.73m2 *Relative to young adult level Estimated glomerular filtration rate is determined by the 2020 CKD-EPI equation recommended by the National Kidney Foundation (A Unifying Approach to GFR Estimation: Recommendations of the NKF-ASK Task Force on Reassessing the Inclusion of Race in Diagnosing Kidney Disease, JASN 2020). The CKD-EPI equation should not be used for patients with unstable renal function and has not been validated in children and those over 70. Current interpretive data was last reviewed 2021. Blood 04/20/2025 4:42 AM CDT 04/20/2025 5:35 AM CDT us Lesia Hodges MD LAB BLOOD ORDERABLES Final Res ult [facility] Department [place] [address] * (ABNORMAL) CBC without differential (04/20/2025 4:42 AM CDT) WBC 5.39 3.80 - 9.90 K/cumm Hgb 9.3(L) 11.9 - 15.5 g/dL [facility] Hct 28.1(L) 35.6 - 45.5 % [facility] Plt 121(L) 150 - 400 K/cumm [facility] MPV 9.4 9.1 - 12.3 fL [facility] RBC 3.02(L) 3.90 - 5.20 M/cumm [facility] MCV 93.0 81.3 - 96.4 fL [facility] MCH 30.8 27.1 - 33.3 pg [facility] MCHC 33.1 32.3 - 35.7 g/dL [facility] RDW CV 18.5(H) 11.1 - 14.9 % [facility] RDW SD 61.4(H) 35.7 - 48.1 fL [facility] NRBC abs 0.00 0.00 - 0.01 K/cumm [facility] Blood 04/20/2025 4:42 AM CDT 04/20/2025 5:35 AM CDT Julienne Ramon MD LAB BLOOD ORDERABLES Final Result Performing Organization Address City/State/[facility] Co de Phone Number [facility] [place] [address] * Phosphorus (04/20/2025 4:42 AM CDT) Pathologist [facility] Phosphorus, pl 3.1 2.3 - 4.5 mg/dL Blood 04/20/2025 4:42 AM CDT 04/20/2025 5:35 AM CDT Lesia Hodges MD LAB BLOOD ORDERABLES Final Res ult Performing Organization Address [facility] Co de Phone Number [facility] [place] [address] * Magnesium (04/20/2025 4:42 AM CDT) Pathologist [facility] Magnesium 1.6 1.4 - 2.5 mg/dL Blood 04/20/2025 4:42 AM CDT 04/20/2025 5:35 AM CDT Lesia Hodges MD LAB BLOOD ORDERABLES Final Res ult Performing Organization Address [facility] [place] [address] * (ABNORMAL) Basic metabolic panel (04/20/2025 4:42 AM CDT) Sodium 134(L) 135 - 145 mmol/L Potassium, pl 3.6 3.3 - 4.9 mmol/L [facility] Chloride 100 97 - 110 mmol/L [facility] CO2 27 22 - 32 mmol/L [facility] Anion gap 7 2 - 15 mmol/L [facility] BUN 12 6 - 25 mg/dL [facility] Creatinine 0.85 0.60 - 1.10 mg/dL [facility] Glucose 138 70 - 199 mg/dL [facility] Comment: Interpretive Data Fasting glucose >/= 126 mg/dl is diagnostic for diabetes. Fasting is defined as no caloric intake for at least 8 hours. Fasting glucose between 100 mg/dl to 125 mg/dl is diagnostic of prediabetes. In a patient with classic symptoms of hyperglycemia or hyperglycemic crisis, a random glucose >/= 200 mg/dl is diagnostic for diabetes. In the absence of unequivocal hyperglycemia, results should be confirmed by repeat testing. The classification and Diagnosis of Diabetes Diabetes Care 202; 46: S19-S40. Current interpretive data was last revised 2022. Calcium 8.4(L) 8.5 - 10.3 mg/dL [facility] Blood 04/20/2025 4:42 AM CDT 04/20/2025 5:35 AM CDT Lesia Hodges MD LAB BLOOD ORDERABLES Final Res ult [facility] Department [place] [address] * (ABNORMAL) POCT glucose (04/19/2025 8:20 PM CDT) [facility] Signature Glucose, POC 222(H) 70 - 199 mg/dL Blood 04/19/2025 8:20 PM CDT 04/19/2025 8:20 PM CDT us Lesia Hodges MD LAB POCT ORDERABLES - DEVICE F inal Result [facility] [place] [address] * (ABNORMAL) POCT glucose (04/19/2025 5:12 PM CDT) Glucose, POC 247(H) 70 - 199 mg/dL Blood 04/19/2025 5:12 PM CDT 04/19/2025 5:12 PM CDT Lesia Hodges MD LAB POCT ORDERABLES - DEVICE F inal Result Performing Organization Address City/[facility] [facility] Co de Phone Number [facility] [place] [address] * (ABNORMAL) POCT glucose (04/19/2025 11:45 AM CDT) Glucose, POC 223(H) 70 - 199 mg/dL Blood 04/19/2025 11:4 5 AM CDT 04/19/2025 11:45 AM CDT Lesia Hodges MD LAB POCT ORDERABLES - DEVICE F inal Result Performing Organization Address [facility] Co de Phone Number [facility] [place] [address] * POCT glucose (04/19/2025 7:36 AM CDT) Glucose, POC 155 70 - 199 mg/dL Blood 04/19/2025 7:36 AM CDT 04/19/2025 7:36 AM CDT Lesia Hodges MD LAB POCT ORDERABLES - DEVICE F inal Result Performing Organization Address [facility] Co de Phone Number [facility] [place] [address] * Infection Prevention Krystal auris PCR, surveillance Axilla/Groin (04/19/2025 6:16 AM CDT) Pathologist [facility] Krystal auris DNA Not Detected Not Detected [facility] Comment: Interpretive Data Testing performed by [facility] using the Florentin pawel 6800 Krystal auris assay. This assay detects DNA from Krystal auris using Real-Time PCR. This assay is laboratory developed and is not cleared by the [place] Food and Drug Administration. The performance characteristics have been verified by the [facility]. Axilla/Groin 04/19/2025 6:16 AM CDT 04/19/2025 9:51 AM CDT Narrative [facility] - 04/19/2025 2:06 PM CDT Order placed by [facility] due to ring surveillance. us Instant Order Generic Provider LAB MICROBIOLOGY - GENERAL ORDERABLES Final Result [facility] Department [place] [address] [facility] * (ABNORMAL) CBC without differential (04/19/2025 6:16 AM CDT) [facility] WBC 5.25 3.80 - 9.90 K/cumm Hgb 9.4(L) 11.9 - 15.5 g/dL [facility] Hct 29.2(L) 35.6 - 45.5 % [facility] Plt 123(L) 150 - 400 K/cumm [facility] MPV 9.7 9.1 - 12.3 fL [facility] RBC 3.10(L) 3.90 - 5.20 M/cumm [facility] MCV 94.2 81.3 - 96.4 fL [facility] MCH 30.3 27.1 - 33.3 pg [facility] MCHC 32.2(L) 32.3 - 35.7 g/dL [facility] RDW CV 18.6(H) 11.1 - 14.9 % [facility] RDW SD 62.7(H) 35.7 - 48.1 fL [facility] NRBC abs 0.00 0.00 - 0.01 K/cumm [facility] Blood 04/19/2025 6:16 AM CDT 04/19/2025 9:33 AM CDT Julienne Ramon MD LAB BLOOD ORDERABLES Final Result Performing Organization Address [facility] Co de Phone Number [facility] [place] [address] * (ABNORMAL) POCT glucose (04/18/2025 7:55 PM CDT) Glucose, POC 248(H) 70 - 199 mg/dL Blood 04/18/2025 7:55 PM CDT 04/18/2025 7:55 PM CDT Lesia Hodges MD LAB POCT ORDERABLES - DEVICE F inal Result Performing Organization Address [facility] de Phone Number [facility] Department [place] [address] * (ABNORMAL) POCT glucose (04/18/2025 5:07 PM CDT) Glucose, POC 304(H) 70 - 199 mg/dL Blood 04/18/2025 5:07 PM CDT 04/18/2025 5:07 PM CDT Lesia Hodges MD LAB POCT ORDERABLES - DEVICE F inal Result Performing Organization Address [facility] de Phone Number [facility] [place] [address] * (ABNORMAL) POCT glucose (04/18/2025 11:23 AM CDT) Glucose, POC 280(H) 70 - 199 mg/dL Blood 04/18/2025 11:2 3 AM CDT 04/18/2025 11:23 AM CDT Lesia Hodges MD LAB POCT ORDERABLES - DEVICE F inal Result [facility] [place] [address] * POCT glucose (04/18/2025 7:58 AM CDT) Glucose, POC 178 70 - 199 mg/dL Blood 04/18/2025 7:58 AM CDT 04/18/2025 7:58 AM CDT Lesia Hodges MD LAB POCT ORDERABLES - DEVICE F inal Result Performing Organization Address [facility] de Phone Number CHARIS [facility] [place] [address] * eGFR (04/18/2025 6:52 AM CDT) eGFR 90 >=60 mL/min/1. 73 m2 Comment: Interpretive Data Reference Interval Normal >/= 90 mL/min/1.73m2 Mildly decreased* 60 - 89 mL/min/1.73m2 Mildly to moderately decreased 45 - 59 mL/min/1.73m2 Moderately to severely decreased 30 - 44 mL/min/1.73m2 Severely decreased 15 - 29 mL/min/1.73m2 Kidney Failure < 15 mL/min/1.73m2 *Relative to young adult level Estimated glomerular filtration rate is determined by the 2020 CKD-EPI equation recommended by the National Kidney Foundation (A Unifying Approach to GFR Estimation: Recommendations of the NKF-ASK Task Force on Reassessing the Inclusion of Race in Diagnosing Kidney Disease, JASN 2020). The CKD-EPI equation should not be used for patients with unstable renal function and has not been validated in children and those over 70. Current interpretive data was last reviewed 2021. Blood 04/18/2025 6:52 AM CDT 04/18/2025 7:30 AM CDT Result [facility] Jeri Crawford MD LAB BLOOD ORDERABLES Elena l Result Performing Organization Address [facility] Co de Phone Number [facility] Department [place] [address] * (ABNORMAL) CBC without differential (04/18/2025 6:52 AM CDT) Pathologist [facility] WBC 5.29 3.80 - 9.90 K/cumm Hgb 10.1(L) 11.9 - 15.5 g/dL [facility] Hct 30.4(L) 35.6 - 45.5 % [facility] Plt 141(L) 150 - 400 K/cumm [facility] MPV 9.1 9.1 - 12.3 fL [facility] RBC 3.28(L) 3.90 - 5.20 M/cumm [facility] MCV 92.7 81.3 - 96.4 fL [facility] MCH 30.8 27.1 - 33.3 pg [facility] MCHC 33.2 32.3 - 35.7 g/dL [facility] RDW CV 18.6(H) 11.1 - 14.9 % [facility] RDW SD 61.6(H) 35.7 - 48.1 fL [facility] NRBC abs 0.00 0.00 - 0.01 K/cumm [facility] Blood 04/18/2025 6:52 AM CDT 04/18/2025 7:30 AM CDT Julienne Ramon MD LAB BLOOD ORDERABLES Final Result Performing Organization Address [facility] Co de Phone Number [facility] Department [place] [address] * Phosphorus (04/18/2025 6:52 AM CDT) Pathologist [facility] Phosphorus, pl 2.7 2.3 - 4.5 mg/dL Blood 04/18/2025 6:52 AM CDT 04/18/2025 7:30 AM CDT Jeri Crawford MD LAB BLOOD ORDERABLES Elena l Result Performing Organization Address City/[facility]/ZIP Co de Phone Number [facility] Department [place] [address] * Magnesium (04/18/2025 6:52 AM CDT) Pathologist [facility] Magnesium 1.7 1.4 - 2.5 mg/dL Blood 04/18/2025 6:52 AM CDT 04/18/2025 7:30 AM CDT Jeri Crawford MD LAB BLOOD ORDERABLES Elena l Result Performing Organization Address [facility] Co de Phone Number [facility] Department [place] [address] * Basic metabolic panel (04/18/2025 6:52 AM CDT) [facility] Sodium 136 135 - 145 mmol/L Potassium, pl 3.6 3.3 - 4.9 mmol/L [facility] Chloride 100 97 - 110 mmol/L [facility] CO2 27 22 - 32 mmol/L [facility] Anion gap 9 2 - 15 mmol/L [facility] BUN 12 6 - 25 mg/dL [facility] Creatinine 0.71 0.60 - 1.10 mg/dL [facility] Glucose 176 70 - 199 mg/dL [facility] Comment: Interpretive Data Fasting glucose >/= 126 mg/dl is diagnostic for diabetes. Fasting is defined as no caloric intake for at least 8 hours. Fasting glucose between 100 mg/dl to 125 mg/dl is diagnostic of prediabetes. In a patient with classic symptoms of hyperglycemia or hyperglycemic crisis, a random glucose >/= 200 mg/dl is diagnostic for diabetes. In the absence of unequivocal hyperglycemia, results should be confirmed by repeat testing. The classification and Diagnosis of Diabetes Diabetes Care 202; 46: S19-S40. Current interpretive data was last revised 2022. Calcium 8.5 8.5 - 10.3 mg/dL [facility] Blood 04/18/2025 6:52 AM CDT 04/18/2025 7:30 AM CDT Jeri Crawford MD LAB BLOOD ORDERABLES Elena l Result Performing Organization Address [facility] Co de Phone Number [facility] [place] [address] * (ABNORMAL) POCT glucose (04/17/2025 8:30 PM CDT) Glucose, POC 224(H) 70 - 199 mg/dL Blood 04/17/2025 8:30 PM CDT 04/17/2025 8:30 PM CDT Lesia Hodges MD LAB POCT ORDERABLES - DEVICE F inal Result Performing Organization Address [facility] de Phone Number [facility] [employer] [place] [address] * (ABNORMAL) POCT glucose (04/17/2025 7:45 PM CDT) Glucose, POC 278(H) 70 - 199 mg/dL Blood 04/17/2025 7:45 PM CDT 04/17/2025 7:45 PM CDT Lesia Hodges MD LAB POCT ORDERABLES - DEVICE F inal Result Performing Organization Address [facility] Co de Phone Number [facility] [place] [address] * POCT glucose (04/17/2025 5:12 PM CDT) Glucose, POC 165 70 - 199 mg/dL Blood 04/17/2025 5:12 PM CDT 04/17/2025 5:12 PM CDT us Lesia Hodges MD LAB POCT ORDERABLES - DEVICE F inal Result Performing Organization Address [facility] [place] [address] * POCT glucose (04/17/2025 11:44 AM CDT) Glucose, POC 135 70 - 199 mg/dL Blood 04/17/2025 11:4 4 AM CDT 04/17/2025 11:44 AM CDT Lesia Hodges MD LAB POCT ORDERABLES - DEVICE F inal Result Performing Organization Address [facility] de Phone Number [facility] [place] [address] * POCT glucose (04/17/2025 7:42 AM CDT) Glucose, POC 176 70 - 199 mg/dL Blood 04/17/2025 7:42 AM CDT 04/17/2025 7:42 AM CDT Lesia Hodges MD LAB POCT ORDERABLES - DEVICE F inal Result Performing Organization Address [facility] de Phone Number [facility] [place] [address] * (ABNORMAL) CBC without differential (04/17/2025 4:57 AM CDT) [facility] Signature WBC 5.34 3.80 - 9.90 K/cumm Hgb 9.7(L) 11.9 - 15.5 g/dL [facility] Hct 30.1(L) 35.6 - 45.5 % [facility] Plt 158 150 - 400 K/cumm [facility] MPV 8.6(L) 9.1 - 12.3 fL [facility] RBC 3.24(L) 3.90 - 5.20 M/cumm [facility] MCV 92.9 81.3 - 96.4 fL [facility] MCH 29.9 27.1 - 33.3 pg [facility] MCHC 32.2(L) 32.3 - 35.7 g/dL [facility] RDW CV 18.4(H) 11.1 - 14.9 % [facility] RDW SD 59.9(H) 35.7 - 48.1 fL [facility] NRBC abs 0.00 0.00 - 0.01 K/cumm [facility] Blood 04/17/2025 4:57 AM CDT 04/17/2025 5:31 AM CDT Julienne Ramon MD LAB BLOOD ORDERABLES Final Result Performing Organization Address [facility] Co de Phone Number [facility] Department [place] [address] * POCT glucose (04/17/2025 12:02 AM CDT) Glucose, POC 148 70 - 199 mg/dL Blood 04/17/2025 12:0 2 AM CDT 04/17/2025 12:02 AM CDT Lesia Hodges MD LAB POCT ORDERABLES - DEVICE F inal Result Performing Organization Address [facility] Co de Phone Number [facility] [place] [address] * POCT glucose (04/16/2025 7:21 PM CDT) Glucose, POC 163 70 - 199 mg/dL Blood 04/16/2025 7:21 PM CDT 04/16/2025 7:21 PM CDT Lesia Hodges MD LAB POCT ORDERABLES - DEVICE F inal Result Performing Organization Address [facility] Co de Phone Number [facility] [place] [address] * POCT glucose (04/16/2025 5:15 PM CDT) Glucose, POC 193 70 - 199 mg/dL Blood 04/16/2025 5:15 PM CDT 04/16/2025 5:15 PM CDT Lesia Hodges MD LAB POCT ORDERABLES - DEVICE F inal Result Performing Organization Address City/[facility] [place] [address] * POCT glucose (04/16/2025 11:29 AM CDT) Glucose, POC 184 70 - 199 mg/dL Blood 04/16/2025 11:2 9 AM CDT 04/16/2025 11:29 AM CDT Lesia Hodges MD LAB POCT ORDERABLES - DEVICE F inal Result Performing Organization Address City/[facility] Co de Phone Number [facility] [place] [address] * POCT glucose (04/16/2025 7:47 AM CDT) Glucose, POC 142 70 - 199 mg/dL Blood 04/16/2025 7:47 AM CDT 04/16/2025 7:47 AM CDT us Lesia Hodges MD LAB POCT ORDERABLES - DEVICE F inal Result Performing Organization Address City/[facility] [place] [address] * eGFR (04/16/2025 6:28 AM CDT) eGFR 81 >=60 mL/min/1. 73 m2 Comment: Interpretive Data Reference Interval Normal >/= 90 mL/min/1.73m2 Mildly decreased* 60 - 89 mL/min/1.73m2 Mildly to moderately decreased 45 - 59 mL/min/1.73m2 Moderately to severely decreased 30 - 44 mL/min/1.73m2 Severely decreased 15 - 29 mL/min/1.73m2 Kidney Failure < 15 mL/min/1.73m2 *Relative to young adult level Estimated glomerular filtration rate is determined by the 2020 CKD-EPI equation recommended by the National Kidney Foundation (A Unifying Approach to GFR Estimation: Recommendations of the NKF-ASK Task Force on Reassessing the Inclusion of Race in Diagnosing Kidney Disease, JASN 2020). The CKD-EPI equation should not be used for patients with unstable renal function and has not been validated in children and those over 70. Current interpretive data was last reviewed 2021. Blood 04/16/2025 6:28 AM CDT 04/16/2025 6:50 AM CDT us Julienne Ramon MD LAB BLOOD ORDERABLES Final Result [facility] Department [place] [address] * (ABNORMAL) CBC without differential (04/16/2025 6:28 AM CDT) WBC 5.02 3.80 - 9.90 K/cumm Hgb 9.4(L) 11.9 - 15.5 g/dL [facility] Hct 29.2(L) 35.6 - 45.5 % [facility] Plt 169 150 - 400 K/cumm [facility] MPV 8.7(L) 9.1 - 12.3 fL [facility] RBC 3.14(L) 3.90 - 5.20 M/cumm [facility] MCV 93.0 81.3 - 96.4 fL [facility] MCH 29.9 27.1 - 33.3 pg [facility] MCHC 32.2(L) 32.3 - 35.7 g/dL [facility] RDW CV 18.0(H) 11.1 - 14.9 % [facility] RDW SD 57.9(H) 35.7 - 48.1 fL [facility] NRBC abs 0.00 0.00 - 0.01 K/cumm [facility] Blood 04/16/2025 6:28 AM CDT 04/16/2025 6:51 AM CDT Julienne Ramon MD LAB BLOOD ORDERABLES Final Result [facility] Department [place] [address] * Magnesium (04/16/2025 6:28 AM CDT) [facility] Magnesium 1.8 1.4 - 2.5 mg/dL Blood 04/16/2025 6:28 AM CDT 04/16/2025 6:50 AM CDT Julienne Ramon MD LAB BLOOD ORDERABLES Final Result Performing Organization Address City/[facility]/ZIP Co de Phone Number [facility] Department [place] [address] * (ABNORMAL) Renal function panel (04/16/2025 6:28 AM CDT) [facility] Sodium 137 135 - 145 mmol/L Potassium, pl 3.8 3.3 - 4.9 mmol/L [facility] Chloride 102 97 - 110 mmol/L [facility] CO2 28 22 - 32 mmol/L [facility] Anion gap 7 2 - 15 mmol/L [facility] BUN 10 6 - 25 mg/dL [facility] Creatinine 0.77 0.60 - 1.10 mg/dL [facility] Glucose 131 70 - 199 mg/dL [facility] Comment: Interpretive Data Fasting glucose >/= 126 mg/dl is diagnostic for diabetes. Fasting is defined as no caloric intake for at least 8 hours. Fasting glucose between 100 mg/dl to 125 mg/dl is diagnostic of prediabetes. In a patient with classic symptoms of hyperglycemia or hyperglycemic crisis, a random glucose >/= 200 mg/dl is diagnostic for diabetes. In the absence of unequivocal hyperglycemia, results should be confirmed by repeat testing. The classification and Diagnosis of Diabetes Diabetes Care 2021; 46: S19-S40. Current interpretive data was last revised 2022. Calcium 8.5 8.5 - 10.3 mg/dL [facility] Phosphorus, pl 3.2 2.3 - 4.5 mg/dL [facility] Albumin 2.5(L) 3.5 - 5.0 g/dL [facility] Blood 04/16/2025 6:28 AM CDT 04/16/2025 6:50 AM CDT Julienne Ramon MD LAB BLOOD ORDERABLES Final Result [facility] Department [place] [address] * POCT glucose (04/15/2025 8:03 PM CDT) Glucose, POC 144 70 - 199 mg/dL Blood 04/15/2025 8:03 PM CDT 04/15/2025 8:03 PM CDT Julienne Ramon MD LAB POCT O RDERABLES - DEVICE Final Result [facility] Department [place] [address] * POCT glucose (04/15/2025 5:56 PM CDT) Glucose, POC 140 70 - 199 mg/dL Blood 04/15/2025 5:56 PM CDT 04/15/2025 5:56 PM CDT us Julienne Ramon MD LAB POCT O RDERABLES - DEVICE Final Result [facility] Department [place] [address] * IR Insert Vena Cava Filter (04/15/2025 5:05 PM CDT) Anatomical Region Laterality Modality Body N/A X-Ray Angiograph y 04/15/2025 5:07 PM CDT Impressions 04/16/2025 7:44 AM CDT Successful placement of an IVC filter PLAN: A retrievable filter has been placed. If clinically indicated, the filter may be retrieved when the patient is appropriately anticoagulated. In order to schedule filter removal please call [phone]. This filter can also be left in place as a permanent IVC filter if appropriate. Dictated by: Avani Dixon M.D. The radiology attending physician has personally reviewed this study, and had reviewed and/or edited this written report and agrees with it. Electronically signed by: Ralph Hendrickson M.D. Narrative 04/16/2025 7:44 AM CDT EXAMINATION: INFERIOR VENA CAVAGRAM AND INFERIOR VENA CAVA FILTER PLACEMENT HISTORY/INDICATION: 74-year-old woman with bilateral lower extremity deep venous thromboses with ongoing GI bleed ATTENDING PRESENCE: Ralph Hendrickson M.D., the attending radiologist was present from the beginning to the end of the procedure. SEDATION: The patient did not require conscious sedation for the procedure. TECHNIQUE: The risks, benefits and alternatives were discussed and informed consent was obtained. Prior to beginning the procedure, [place] Protocol was performed to confirm the patient's identity and the planned procedure. The fluoroscopy time has been recorded in the electronic medical record. Maximum sterile barriers including cap, mask, hand hygiene, sterile gloves, sterile gown, large sterile drape and 2% chlorhexidine for cutaneous antisepsis were used. Prior to the procedure, the central veins were evaluated by ultrasound. The recorded image shows a patent vessel. The right neck was infiltrated with 1% lidocaine. The right internal jugular vein was then accessed using realtime ultrasound guidance and a guidewire passed centrally with fluoroscopic monitoring. A catheter was advanced to the confluence of the IVC and iliac veins. DSA images of the inferior vena cava were obtained. The catheter was then positioned within the infrarenal IVC and exchanged for the filter delivery sheath. A Rebeca filter was deployed in the infrarenal IVC. A completion venogram was obtained. At the end of the procedure, the sheath was removed and pressure held until hemostasis was achieved. ESTIMATED BLOOD LOSS: Minimal. CONDITION: Stable DISCHARGED TO: Recovery and then to inpatient unit FINDINGS: DSA of the IVC shows no intraluminal thrombus or obstruction. No anatomic variants are present. The renal veins are well-identified. The final images show the filter positioned in the infra-renal IVC. Procedure Note Ralph Hendrickson MD - 04/16/2025 EXAMINATION: INFERIOR VENA CAVAGRAM AND INFERIOR VENA CAVA FILTER PLACEMENT HISTORY/INDICATION: 74-year-old woman with bilateral lower extremity deep venous thromboses with ongoing GI bleed ATTENDING PRESENCE: Ralph Hendrickson M.D., the attending radiologist was present from the beginning to the end of the procedure. SEDATION: The patient did not require conscious sedation for the procedure. TECHNIQUE: The risks, benefits and alternatives were discussed and informed consent was obtained. Prior to beginning the procedure, [place] Protocol was performed to confirm the patient's identity and the planned procedure. The fluoroscopy time has been recorded in the electronic medical record. Maximum sterile barriers including cap, mask, hand hygiene, sterile gloves, sterile gown, large sterile drape and 2% chlorhexidine for cutaneous antisepsis were used. Prior to the procedure, the central veins were evaluated by ultrasound. The recorded image shows a patent vessel. The right neck was infiltrated with 1% lidocaine. The right internal jugular vein was then accessed using realtime ultrasound guidance and a guidewire passed centrally with fluoroscopic monitoring. A catheter was advanced to the confluence of the IVC and iliac veins. DSA images of the inferior vena cava were obtained. The catheter was then positioned within the infrarenal IVC and exchanged for the filter delivery sheath. A Logan filter was deployed in the infrarenal IVC. A completion venogram was obtained. At the end of the procedure, the sheath was removed and pressure held until hemostasis was achieved. ESTIMATED BLOOD LOSS: Minimal. CONDITION: Stable DISCHARGED TO: Recovery and then to inpatient unit FINDINGS: DSA of the IVC shows no intraluminal thrombus or obstruction. No anatomic variants are present. The renal veins are well-identified. The final images show the filter positioned in the infra-renal IVC. IMPRESSION: Successful placement of an IVC filter PLAN: A retrievable filter has been placed. If clinically indicated, the filter may be retrieved when the patient is appropriately anticoagulated. In order to schedule filter removal please call [phone]. This filter can also be left in place as a permanent IVC filter if appropriate. Dictated by: Avani Dixon M.D. The radiology attending physician has personally reviewed this study, and had reviewed and/or edited this written report and agrees with it. Electronically signed by: Ralph Hendrickson M.D. Julienne Ramon MD IMG IR PRO CEDURES Final Result * US Vein Duplex Lower Extremity Bilateral Complete (04/15/2025 1:48 PM CDT) Anatomical Region Laterality Modality Vascular Bilateral Ultrasound 04/15/2025 11:2 3 AM CDT Narrative 04/15/2025 10:14 PM CDT [facility] - Department of Vascular Surgery, Vascular Laboratory [address] [place] [address] Lower Extremity Venous Ultrasound Report Patient Name: GREGG CROCKER : 1950 (74y 10m) Study Date: 04/15/2025 11:23:25 AM Gender: F Tech: Location: [id number] Ref Provider: JULIENNE RAMON Quality: Adequate Order Provider: JULIENNE RAMON PROCEDURES: Vascular Report: Venous Duplex imaging was performed bilaterally in the lower extremities. The common femoral, femoral, popliteal, posterior tibial, peroneal veins were evaluated for patency, spontaneity and phasicity with Doppler, compression and augmentation maneuvers. Great saphenous vein proximal at the junction was evaluated with compression maneuvers. INDICATIONS: Swelling. FINDINGS: Performing [employer]orer: Stacy Garza RVT. Right: Duplex scan reveals dilated vein with echogenic, intraluminal, non-compressible material consistent with acute deep vein thrombosis in the right lower extremity. Deep veins involved include the right popliteal vein (occluisve), posterior tibial veins(occlusive) and peroneal veins(occlusive). All other evaluated veins on the right are patent. Left: Duplex scan reveals dilated vein with echogenic, intraluminal, non-compressible material consistent with acute deep vein thrombosis in the left lower extremity. Deep veins involved include the distal common femoral vein (non-occlusive), proximal femoral vein (occlusive) and soleal sinus veins(occlusive). All other evaluated veins are patent. Provider Notification: Results called on the above date to Julienne Ramon MD. Time of call 1:14pm. CONCLUSIONS: 1. There is acute deep vein thrombosis in the bilateral lower extremities involving vein(s) as noted above. HISTORY: Lower extremity swelling. PREVIOUS STUDIES: No previous studies for comparison. DISCLAIMER: The study images and the final report will be retained in the patient chart by the Vascular Laboratory for the legally required time period. This chart constitutes the legal record of any testing performed. ATTESTATION: I have reviewed and interpreted the pertinent images and measurements of this study. I attest to the conclusions in the final report that is provided above. Electronically Signed By: David Matamoros MD [facility] [phone] 04/15/2025 10:13:59 PM CDT Procedure Note Matamoros, David G., MD - 04/15/2025 [facility] - Department of Vascular Surgery,Vascular Laboratory [address] [place] [id number] Lower Extremity Venous Ultrasound Report Patient Name: GREGG CROCKER : 1950 (74y 10m) Study Date: 04/15/2025 11:23:25 AM Gender: F Tech: Location: [id number] Ref Provider: JULIENNE RAMON Quality: Adequate Order Provider: JULIENNE RAMON PROCEDURES: Vascular Report: Venous Duplex imaging was performed bilaterally in the lower extremities.The common femoral, femoral, popliteal, posterior tibial, peroneal veins wereevaluated for patency, spontaneity and phasicity with Doppler, compression and augmentationmaneuvers. Great saphenous vein proximal at the junction was evaluated with compressionmaneuvers. INDICATIONS: Swelling. FINDINGS: Performing [employer]: Stacy Garza RVT. Right: Duplex scan reveals dilated vein with echogenic, intraluminal,non-compressible material consistent with acute deep vein thrombosis in the right lower extremity.Deep veins involved include the right popliteal vein (occluisve), posterior tibialveins(occlusive) and peroneal veins(occlusive). All other evaluated veins on the right arepatent. Left: Duplex scan reveals dilated vein with echogenic, intraluminal,non-compressible material consistent with acute deep vein thrombosis in the left lower extremity.Deep veins involved include the distal common femoral vein (non-occlusive), proximalfemoral vein (occlusive) and soleal sinus veins(occlusive). All other evaluated veinsare patent. Provider Notification: Results called on the above date to Julienne Ramon MD. Time of call 1:14pm. CONCLUSIONS: 1. There is acute deep vein thrombosis in the bilateral lower extremitiesinvolving vein(s) as noted above. HISTORY: Lower extremity swelling. PREVIOUS STUDIES: No previous studies for comparison. DISCLAIMER: The study images and the final report will be retained in the patientchart by the Vascular Laboratory for the legally required time period. This chartconstitutes the legal record of any testing performed. ATTESTATION: I have reviewed and interpreted the pertinent images and measurements ofthis study. I attest to the conclusions in the final report that is provided above. Electronically Signed By: David Matamoros MD [facility] [phone] 04/15/2025 10:13:59 PM CDT Julienne Ramon MD IM US PRO CEDURES Final Result * POCT glucose (04/15/2025 11:20 AM CDT) Glucose, POC 161 70 - 199 mg/dL Blood 04/15/2025 11:2 0 AM CDT 04/15/2025 11:20 AM CDT Julienne Ramon MD LAB POCT O RDERABLES - DEVICE Final Result [facility] Department [place] [address] * XR Chest 1 View (04/15/2025 9:36 AM CDT) Anatomical Region Laterality Modality Body, Chest N/A Computed Radiogr aphy 04/15/2025 10:1 2 AM CDT Impressions 04/15/2025 10:17 AM CDT Comparison with 04/04/2025. Transcatheter aortic valve replacement. Left internal jugular central venous catheter with tip overlying the superior vena cava. Unchanged small right pleural effusion with mild right basilar atelectasis. Mildly increased aeration of the left lung base. No pneumothorax. Stable cardiomediastinal silhouette. Dictated by: Rebekah Lopes MD The radiology attending physician has personally reviewed this study, and had reviewed and/or edited this written report and agrees with it. Electronically signed by: Buzz Palma M.D. Narrative 04/15/2025 10:17 AM CDT EXAMINATION: 1 view chest radiograph Procedure Note Buzz Palma MD - 04/15/2025 EXAMINATION: 1 view chest radiograph IMPRESSION: Comparison with 04/04/2025. Transcatheter aortic valve replacement. Left internal jugular central venous catheter with tip overlying the superior vena cava. Unchanged small right pleural effusion with mild right basilar atelectasis. Mildly increased aeration of the left lung base. No pneumothorax. Stable cardiomediastinal silhouette. Dictated by: Rebekah Lopes MD The radiology attending physician has personally reviewed this study, and had reviewed and/or edited this written report and agrees with it. Electronically signed by: Buzz Palma M.D. Julienne Ramon MD IMG XR PRO CEDURES Final Result * ECG 12 lead (04/15/2025 8:25 AM CDT) [facility] Ventricular Rate EKG/Min 82 BPM [facility] Atrial Rate 82 BPM [facility] CO-Interval (MSEC) 230 ms [facility] QRS-Interval (MSEC) 90 ms [facility] QT-Interval (MSEC) 388 ms [facility] QTc 453 ms [facility] P Howe 53 degrees [facility] R Howe 18 degrees [facility] T Howe 66 degrees [facility] Diagnosis Sinus rhythm with 1st degree A-V block Possible Anterior infarct , age undetermined Abnormal ECG Confirmed by Jacinta Henry MD ([id number]) on 04/16/2025 11:11:56 AM [facility] 04/15/2025 8:25 AM CDT 04/16/2025 11:11 AM CDT Julienne Ramon MD ECG ORDERA BLES Final Result Performing Organization Address City/[facility]/ZIP Co de Phone Number [facility] * (ABNORMAL) POCT glucose (04/15/2025 7:46 AM CDT) Glucose, POC 221(H) 70 - 199 mg/dL Blood 04/15/2025 7:46 AM CDT 04/15/2025 7:46 AM CDT Julienne Ramon MD LAB POCT O RDERABLES - DEVICE Final Result Performing Organization Address [facility] de Phone Number [facility] Department [place] [address] * eGFR (04/15/2025 5:37 AM CDT) eGFR 80 >=60 mL/min/1. 73 m2 Comment: Interpretive Data Reference Interval Normal >/= 90 mL/min/1.73m2 Mildly decreased* 60 - 89 mL/min/1.73m2 Mildly to moderately decreased 45 - 59 mL/min/1.73m2 Moderately to severely decreased 30 - 44 mL/min/1.73m2 Severely decreased 15 - 29 mL/min/1.73m2 Kidney Failure < 15 mL/min/1.73m2 *Relative to young adult level Estimated glomerular filtration rate is determined by the 2020 CKD-EPI equation recommended by the National Kidney Foundation (A Unifying Approach to GFR Estimation: Recommendations of the NKF-ASK Task Force on Reassessing the Inclusion of Race in Diagnosing Kidney Disease, JASN 202). The CKD-EPI equation should not be used for patients with unstable renal function and has not been validated in children and those over 70. Current interpretive data was last reviewed 2021. Blood 04/15/2025 5:37 AM CDT 04/15/2025 5:59 AM CDT us Jeri Crawford MD LAB BLOOD ORDERABLES Elena l Result Performing Organization Address [facility] Co de Phone Number [facility] [place] [address] * (ABNORMAL) CBC without differential (04/15/2025 5:37 AM CDT) [facility] WBC 4.27 3.80 - 9.90 K/cumm Hgb 9.3(L) 11.9 - 15.5 g/dL [facility] Hct 28.6(L) 35.6 - 45.5 % [facility] Plt 196 150 - 400 K/cumm [facility] MPV 8.9(L) 9.1 - 12.3 fL [facility] RBC 3.11(L) 3.90 - 5.20 M/cumm [facility] MCV 92.0 81.3 - 96.4 fL [facility] MCH 29.9 27.1 - 33.3 pg [facility] MCHC 32.5 32.3 - 35.7 g/dL [facility] RDW CV 17.6(H) 11.1 - 14.9 % [facility] RDW SD 55.0(H) 35.7 - 48.1 fL [facility] NRBC abs 0.00 0.00 - 0.01 K/cumm [facility] Blood 04/15/2025 5:37 AM CDT 04/15/2025 5:59 AM CDT us Julienne Ramon MD LAB BLOOD ORDERABLES Final Result Performing Organization Address [facility]/ZIP Co de Phone Number [facility] [place] [address] * (ABNORMAL) Phosphorus (04/15/2025 5:37 AM CDT) Pathologist [facility] Phosphorus, pl 2.2(L) 2.3 - 4.5 mg/dL Blood 04/15/2025 5:37 AM CDT 04/15/2025 5:59 AM CDT Jeri Crawford MD LAB BLOOD ORDERABLES Elena l Result Performing Organization Address City/[facility]/ZIP Co de Phone Number [facility] Department [place] [address] * Magnesium (04/15/2025 5:37 AM CDT) [facility] Magnesium 1.6 1.4 - 2.5 mg/dL Blood 04/15/2025 5:37 AM CDT 04/15/2025 5:59 AM CDT Jeri Crawford MD LAB BLOOD ORDERABLES Elena l Result Performing Organization Address [facility] de Phone Number [facility] [employer] [place] [address] * (ABNORMAL) Hepatic function panel (04/15/2025 5:37 AM CDT) [facility] Bilirubin, total 1.1 0.1 - 1.2 mg/dL Bilirubin, direct 0.4(H) 0.1 - 0.3 mg/dL [facility] Protein, pl 5.6(L) 6.5 - 8.5 g/dL [facility] Albumin 2.6(L) 3.5 - 5.0 g/dL [facility] Alk phos 98 40 - 130 Units/L [facility] ALT 11 7 - 45 Units/L [facility] AST 33 10 - 45 Units/L [facility] Blood 04/15/2025 5:37 AM CDT 04/15/2025 5:59 AM CDT Jeri Crawford MD LAB BLOOD ORDERABLES Elena l Result [facility] Department [place] [address] * Basic metabolic panel (04/15/2025 5:37 AM CDT) Sodium 136 135 - 145 mmol/L Potassium, pl 3.6 3.3 - 4.9 mmol/L [facility] Chloride 101 97 - 110 mmol/L [facility] CO2 28 22 - 32 mmol/L [facility] Anion gap 7 2 - 15 mmol/L [facility] BUN 10 6 - 25 mg/dL [facility] Creatinine 0.78 0.60 - 1.10 mg/dL [facility] Glucose 154 70 - 199 mg/dL [facility] Comment: Interpretive Data Fasting glucose >/= 126 mg/dl is diagnostic for diabetes. Fasting is defined as no caloric intake for at least 8 hours. Fasting glucose between 100 mg/dl to 125 mg/dl is diagnostic of prediabetes. In a patient with classic symptoms of hyperglycemia or hyperglycemic crisis, a random glucose >/= 200 mg/dl is diagnostic for diabetes. In the absence of unequivocal hyperglycemia, results should be confirmed by repeat testing. The classification and Diagnosis of Diabetes Diabetes Care 2021; 46: S19-S40. Current interpretive data was last revised 2022. Calcium 8.5 8.5 - 10.3 mg/dL [facility] Blood 04/15/2025 5:37 AM CDT 04/15/2025 5:59 AM CDT us Jeri Crawford MD LAB BLOOD ORDERABLES Elena l Result Performing Organization Address City/[facility]/ZIP Co de Phone Number [facility] Department [place] [address] * POCT glucose (04/14/2025 8:48 PM CDT) Glucose, POC 140 70 - 199 mg/dL Blood 04/14/2025 8:48 PM CDT 04/14/2025 8:48 PM CDT Julienne Ramon MD LAB POCT O RDERABLES - DEVICE Final Result [facility] Department [place] [address] * (ABNORMAL) Differential, auto (04/14/2025 5:54 PM CDT) Neutrophil abs 2.26 1.50 - 6.50 K/cumm Imm gran abs 0.22(H) 0.00 - 0.10 K/cumm [facility] Lymphocyte abs 0.89 0.80 - 3.30 K/cumm [facility] Monocyte abs 0.64 0.20 - 0.80 K/cumm [facility] Eosinophil abs 0.14 0.00 - 0.50 K/cumm [facility] Basophil abs 0.05 0.00 - 0.10 K/cumm [facility] Neutrophil pct 53.9 % [facility] Comment: Interpretive Data Percent cell count reference ranges are not reported, since discordance with absolute values may lead to misinterpretation of CBC data. Current Interpretive Data was last revised on 2018. Imm gran pct 5.2 % [facility] Comment: Interpretive Data Percent cell count reference ranges are not reported, since discordance with absolute values may lead to misinterpretation of CBC data. Current Interpretive Data was last revised on 2018. Lymphocyte pct 21.2 % [facility] Comment: Interpretive Data Percent cell count reference ranges are not reported, since discordance with absolute values may lead to misinterpretation of CBC data. Current Interpretive Data was last revised on 2018. Monocyte pct 15.2 % [facility] Comment: Interpretive Data Percent cell count reference ranges are not reported, since discordance with absolute values may lead to misinterpretation of CBC data. Current Interpretive Data was last revised on 2018. Eosinophil pct 3.3 % [facility] Comment: Interpretive Data Percent cell count reference ranges are not reported, since discordance with absolute values may lead to misinterpretation of CBC data. Current Interpretive Data was last revised on 2018. Basophil pct 1.2 % [facility] Comment: Interpretive Data Percent cell count reference ranges are not reported, since discordance with absolute values may lead to misinterpretation of CBC data. Current Interpretive Data was last revised on 2018. Blood 04/14/2025 5:54 PM CDT 04/14/2025 6:39 PM CDT us Julienne Ramon MD LAB BLOOD ORDERABLES Final Result Performing Organization Address City/[facility] Co de Phone Number [facility] Department [place] [address] * (ABNORMAL) CBC with auto differential (04/14/2025 5:54 PM CDT) WBC 4.20 3.80 - 9.90 K/cumm Hgb 9.7(L) 11.9 - 15.5 g/dL [facility] Hct 30.2(L) 35.6 - 45.5 % [facility] Plt 226 150 - 400 K/cumm [facility] MPV 8.8(L) 9.1 - 12.3 fL [facility] RBC 3.26(L) 3.90 - 5.20 M/cumm [facility] MCV 92.6 81.3 - 96.4 fL [facility] MCH 29.8 27.1 - 33.3 pg [facility] MCHC 32.1(L) 32.3 - 35.7 g/dL [facility] RDW CV 17.7(H) 11.1 - 14.9 % [facility] RDW SD 54.0(H) 35.7 - 48.1 fL [facility] NRBC abs 0.00 0.00 - 0.01 K/cumm [facility] Blood 04/14/2025 5:54 PM CDT 04/14/2025 6:39 PM CDT Julienne Ramon MD LAB BLOOD ORDERABLES Final Result [facility] [place] [address] * POCT glucose (04/14/2025 4:39 PM CDT) [facility] Glucose, POC 169 70 - 199 mg/dL Blood 04/14/2025 4:39 PM CDT 04/14/2025 4:39 PM CDT Julienne Ramon MD LAB POCT O RDERABLES - DEVICE Final Result Performing Organization Address City/[facility] Co de Phone Number [facility] [place] [address] * (ABNORMAL) Differential, auto (04/14/2025 12:39 PM CDT) [facility] Neutrophil abs 2.02 1.50 - 6.50 K/cumm Imm gran abs 0.16(H) 0.00 - 0.10 K/cumm [facility] Lymphocyte abs 0.90 0.80 - 3.30 K/cumm [facility] Monocyte abs 0.56 0.20 - 0.80 K/cumm [facility] Eosinophil abs 0.11 0.00 - 0.50 K/cumm [facility] Basophil abs 0.04 0.00 - 0.10 K/cumm [facility] Neutrophil pct 53.3 % [facility] Comment: Interpretive Data Percent cell count reference ranges are not reported, since discordance with absolute values may lead to misinterpretation of CBC data. Current Interpretive Data was last revised on 2018. Imm gran pct 4.2 % [facility] Comment: Interpretive Data Percent cell count reference ranges are not reported, since discordance with absolute values may lead to misinterpretation of CBC data. Current Interpretive Data was last revised on 2018. Lymphocyte pct 23.7 % [facility] Comment: Interpretive Data Percent cell count reference ranges are not reported, since discordance with absolute values may lead to misinterpretation of CBC data. Current Interpretive Data was last revised on 2018. Monocyte pct 14.8 % [facility] Comment: Interpretive Data Percent cell count reference ranges are not reported, since discordance with absolute values may lead to misinterpretation of CBC data. Current Interpretive Data was last revised on 2018. Eosinophil pct 2.9 % [facility] Comment: Interpretive Data Percent cell count reference ranges are not reported, since discordance with absolute values may lead to misinterpretation of CBC data. Current Interpretive Data was last revised on 2018. Basophil pct 1.1 % [facility] Comment: Interpretive Data Percent cell count reference ranges are not reported, since discordance with absolute values may lead to misinterpretation of CBC data. Current Interpretive Data was last revised on 2018. Blood 04/14/2025 12:3 9 PM CDT 04/14/2025 1:41 PM CDT us Julienne Ramon MD LAB BLOOD ORDERABLES Final Result [facility] Department [place] [address] * (ABNORMAL) CBC with auto differential (04/14/2025 12:39 PM CDT) WBC 3.79(L) 3.80 - 9.90 K/cumm Hgb 9.0(L) 11.9 - 15.5 g/dL [facility] Hct 27.9(L) 35.6 - 45.5 % [facility] Plt 234 150 - 400 K/cumm [facility] MPV 8.9(L) 9.1 - 12.3 fL [facility] RBC 3.03(L) 3.90 - 5.20 M/cumm [facility] MCV 92.1 81.3 - 96.4 fL [facility] MCH 29.7 27.1 - 33.3 pg [facility] MCHC 32.3 32.3 - 35.7 g/dL [facility] RDW CV 17.4(H) 11.1 - 14.9 % [facility] RDW SD 53.1(H) 35.7 - 48.1 fL [facility] NRBC abs 0.00 0.00 - 0.01 K/cumm [facility] Blood 04/14/2025 12:3 9 PM CDT 04/14/2025 1:41 PM CDT Julienne Ramon MD LAB BLOOD ORDERABLES Final Result Performing Organization Address City/[facility] Co de Phone Number [facility] [employer] [place] [address] * POCT glucose (04/14/2025 11:33 AM CDT) Glucose, POC 173 70 - 199 mg/dL Blood 04/14/2025 11:3 3 AM CDT 04/14/2025 11:33 AM CDT Julienne Ramon MD LAB POCT O RDERABLES - DEVICE Final Result Performing Organization Address [facility] de Phone Number [facility] [place] [address] * (ABNORMAL) POCT glucose (04/14/2025 7:44 AM CDT) Glucose, POC 210(H) 70 - 199 mg/dL Blood 04/14/2025 7:44 AM CDT 04/14/2025 7:44 AM CDT Julienne Ramon MD LAB POCT O RDERABLES - DEVICE Final Result Performing Organization Address [facility] de Phone Number [facility] [place] [address] * (ABNORMAL) Differential, auto (04/14/2025 6:03 AM CDT) Neutrophil abs 2.26 1.50 - 6.50 K/cumm Imm gran abs 0.22(H) 0.00 - 0.10 K/cumm [facility] Lymphocyte abs 0.80 0.80 - 3.30 K/cumm [facility] Monocyte abs 0.64 0.20 - 0.80 K/cumm [facility] Eosinophil abs 0.12 0.00 - 0.50 K/cumm [facility] Basophil abs 0.05 0.00 - 0.10 K/cumm [facility] Neutrophil pct 55.3 % [facility] Comment: Interpretive Data Percent cell count reference ranges are not reported, since discordance with absolute values may lead to misinterpretation of CBC data. Current Interpretive Data was last revised on 2018. Imm gran pct 5.4 % [facility] Comment: Interpretive Data Percent cell count reference ranges are not reported, since discordance with absolute values may lead to misinterpretation of CBC data. Current Interpretive Data was last revised on 2018. Lymphocyte pct 19.6 % [facility] Comment: Interpretive Data Percent cell count reference ranges are not reported, since discordance with absolute values may lead to misinterpretation of CBC data. Current Interpretive Data was last revised on 2018. Monocyte pct 15.6 % [facility] Comment: Interpretive Data Percent cell count reference ranges are not reported, since discordance with absolute values may lead to misinterpretation of CBC data. Current Interpretive Data was last revised on 2018. Eosinophil pct 2.9 % [facility] Comment: Interpretive Data Percent cell count reference ranges are not reported, since discordance with absolute values may lead to misinterpretation of CBC data. Current Interpretive Data was last revised on 2018. Basophil pct 1.2 % [facility] Comment: Interpretive Data Percent cell count reference ranges are not reported, since discordance with absolute values may lead to misinterpretation of CBC data. Current Interpretive Data was last revised on 2018. Blood 04/14/2025 6:03 AM CDT 04/14/2025 6:53 AM CDT Julienne Ramon MD LAB BLOOD ORDERABLES Final Result Performing Organization Address [facility]/ZIP Co de Phone Number [facility] Department [place] [address] * (ABNORMAL) CBC with auto differential (04/14/2025 6:03 AM CDT) [facility] WBC 4.09 3.80 - 9.90 K/cumm Hgb 9.0(L) 11.9 - 15.5 g/dL [facility] Hct 27.1(L) 35.6 - 45.5 % [facility] Plt 210 150 - 400 K/cumm [facility] MPV 8.8(L) 9.1 - 12.3 fL [facility] RBC 2.97(L) 3.90 - 5.20 M/cumm [facility] MCV 91.2 81.3 - 96.4 fL [facility] MCH 30.3 27.1 - 33.3 pg [facility] MCHC 33.2 32.3 - 35.7 g/dL [facility] RDW CV 17.4(H) 11.1 - 14.9 % [facility] RDW SD 53.1(H) 35.7 - 48.1 fL [facility] NRBC abs 0.00 0.00 - 0.01 K/cumm [facility] Blood 04/14/2025 6:03 AM CDT 04/14/2025 6:53 AM CDT Julienne Ramon MD LAB BLOOD ORDERABLES Final Result Performing Organization Address [facility]/ZIP Co de Phone Number [facility] Department [place] [address] * (ABNORMAL) Differential, auto (04/14/2025 12:20 AM CDT) [facility] Neutrophil abs 2.48 1.50 - 6.50 K/cumm Imm gran abs 0.22(H) 0.00 - 0.10 K/cumm [facility] Lymphocyte abs 0.99 0.80 - 3.30 K/cumm [facility] Monocyte abs 0.77 0.20 - 0.80 K/cumm [facility] Eosinophil abs 0.13 0.00 - 0.50 K/cumm [facility] Basophil abs 0.05 0.00 - 0.10 K/cumm [facility] Neutrophil pct 53.5 % [facility] Comment: Interpretive Data Percent cell count reference ranges are not reported, since discordance with absolute values may lead to misinterpretation of CBC data. Current Interpretive Data was last revised on 2018. Imm gran pct 4.7 % [facility] Comment: Interpretive Data Percent cell count reference ranges are not reported, since discordance with absolute values may lead to misinterpretation of CBC data. Current Interpretive Data was last revised on 2018. Lymphocyte pct 21.3 % [facility] Comment: Interpretive Data Percent cell count reference ranges are not reported, since discordance with absolute values may lead to misinterpretation of CBC data. Current Interpretive Data was last revised on 2018. Monocyte pct 16.6 % [facility] Comment: Interpretive Data Percent cell count reference ranges are not reported, since discordance with absolute values may lead to misinterpretation of CBC data. Current Interpretive Data was last revised on 2018. Eosinophil pct 2.8 % [facility] Comment: Interpretive Data Percent cell count reference ranges are not reported, since discordance with absolute values may lead to misinterpretation of CBC data. Current Interpretive Data was last revised on 2018. Basophil pct 1.1 % [facility] Comment: Interpretive Data Percent cell count reference ranges are not reported, since discordance with absolute values may lead to misinterpretation of CBC data. Current Interpretive Data was last revised on 2018. Blood 04/14/2025 12:2 0 AM CDT 04/14/2025 12:39 AM CDT us Julienne Ramon MD LAB BLOOD ORDERABLES Final Result [facility] Department [place] [address] * (ABNORMAL) CBC with auto differential (04/14/2025 12:20 AM CDT) WBC 4.64 3.80 - 9.90 K/cumm Hgb 9.3(L) 11.9 - 15.5 g/dL [facility] Hct 28.9(L) 35.6 - 45.5 % [facility] Plt 259 150 - 400 K/cumm [facility] MPV 9.0(L) 9.1 - 12.3 fL [facility] RBC 3.15(L) 3.90 - 5.20 M/cumm [facility] MCV 91.7 81.3 - 96.4 fL [facility] MCH 29.5 27.1 - 33.3 pg [facility] MCHC 32.2(L) 32.3 - 35.7 g/dL [facility] RDW CV 17.6(H) 11.1 - 14.9 % [facility] RDW SD 53.0(H) 35.7 - 48.1 fL [facility] NRBC abs 0.00 0.00 - 0.01 K/cumm [facility] Blood 04/14/2025 12:2 0 AM CDT 04/14/2025 12:39 AM CDT us Julienne Ramon MD LAB BLOOD ORDERABLES Final Result [facility] Department [place] [address] * (ABNORMAL) Protime-INR (04/14/2025 12:20 AM CDT) PT 13.8(H) 9.7 - 13.0 sec INR 1.27(H) 0.90 - 1.20 [facility] Comment: Interpretive data Oral anticoagulant therapeutic ranges: Venous thromboembolism prophylaxis or treatment: 2.0-3.0 CARDIOLOGY Standard range: 2.0-3.0 High-intensity range: 2.5-3.5 Refer to indication-specific guidelines for appropriate target ranges for prosthetic heart valve replacement. Current interpretive data was last revised on 2019. Blood 04/14/2025 12:2 0 AM CDT 04/14/2025 12:36 AM CDT Julienne Ramon MD LAB BLOOD ORDERABLES Final Result Performing Organization Address [facility] de Phone Number [facility] Department [place] [address] * (ABNORMAL) POCT glucose (04/13/2025 7:52 PM CDT) Pathologist [facility] Glucose, POC 212(H) 70 - 199 mg/dL Blood 04/13/2025 7:52 PM CDT 04/13/2025 7:52 PM CDT Julienne Ramon MD LAB POCT O RDERABLES - DEVICE Final Result Performing Organization Address [facility] de Phone Number [facility] Department [place] [address] * (ABNORMAL) Differential, auto (04/13/2025 5:44 PM CDT) [facility] Neutrophil abs 2.17 1.50 - 6.50 K/cumm Imm gran abs 0.23(H) 0.00 - 0.10 K/cumm [facility] Lymphocyte abs 0.87 0.80 - 3.30 K/cumm [facility] Monocyte abs 0.70 0.20 - 0.80 K/cumm [facility] Eosinophil abs 0.13 0.00 - 0.50 K/cumm [facility] Basophil abs 0.06 0.00 - 0.10 K/cumm [facility] Neutrophil pct 52.3 % [facility] Comment: Interpretive Data Percent cell count reference ranges are not reported, since discordance with absolute values may lead to misinterpretation of CBC data. Current Interpretive Data was last revised on 2018. Imm gran pct 5.5 % [facility] Comment: Interpretive Data Percent cell count reference ranges are not reported, since discordance with absolute values may lead to misinterpretation of CBC data. Current Interpretive Data was last revised on 2018. Lymphocyte pct 20.9 % [facility] Comment: Interpretive Data Percent cell count reference ranges are not reported, since discordance with absolute values may lead to misinterpretation of CBC data. Current Interpretive Data was last revised on 2018. Monocyte pct 16.8 % [facility] Comment: Interpretive Data Percent cell count reference ranges are not reported, since discordance with absolute values may lead to misinterpretation of CBC data. Current Interpretive Data was last revised on 2018. Eosinophil pct 3.1 % [facility] Comment: Interpretive Data Percent cell count reference ranges are not reported, since discordance with absolute values may lead to misinterpretation of CBC data. Current Interpretive Data was last revised on 2018. Basophil pct 1.4 % [facility] Comment: Interpretive Data Percent cell count reference ranges are not reported, since discordance with absolute values may lead to misinterpretation of CBC data. Current Interpretive Data was last revised on 2018. Blood 04/13/2025 5:44 PM CDT 04/13/2025 6:33 PM CDT Julienne Ramon MD LAB BLOOD ORDERABLES Final Result [facility] Department [place] [address] * (ABNORMAL) CBC with auto differential (04/13/2025 5:44 PM CDT) WBC 4.16 3.80 - 9.90 K/cumm Hgb 9.3(L) 11.9 - 15.5 g/dL [facility] Hct 28.6(L) 35.6 - 45.5 % [facility] Plt 258 150 - 400 K/cumm [facility] MPV 8.8(L) 9.1 - 12.3 fL [facility] RBC 3.14(L) 3.90 - 5.20 M/cumm [facility] MCV 91.1 81.3 - 96.4 fL [facility] MCH 29.6 27.1 - 33.3 pg [facility] MCHC 32.5 32.3 - 35.7 g/dL [facility] RDW CV 17.5(H) 11.1 - 14.9 % [facility] RDW SD 53.1(H) 35.7 - 48.1 fL [facility] NRBC abs 0.00 0.00 - 0.01 K/cumm [facility] Blood 04/13/2025 5:44 PM CDT 04/13/2025 6:33 PM CDT Julienne Ramon MD LAB BLOOD ORDERABLES Final Result Performing Organization Address City/[facility]/ZIP Co de Phone Number [facility] Department [place] [address] * (ABNORMAL) POCT glucose (04/13/2025 5:12 PM CDT) [facility] Glucose, POC 209(H) 70 - 199 mg/dL Blood 04/13/2025 5:12 PM CDT 04/13/2025 5:12 PM CDT Julienne Ramon MD LAB POCT O RDERABLES - DEVICE Final Result Performing Organization Address City/[facility]/ZIP Co de Phone Number [facility] Department [place] [address] * (ABNORMAL) Differential, auto (04/13/2025 12:00 PM CDT) [facility] Neutrophil abs 2.27 1.50 - 6.50 K/cumm Imm gran abs 0.20(H) 0.00 - 0.10 K/cumm [facility] Lymphocyte abs 0.77(L) 0.80 - 3.30 K/cumm [facility] Monocyte abs 0.57 0.20 - 0.80 K/cumm [facility] Eosinophil abs 0.12 0.00 - 0.50 K/cumm [facility] Basophil abs 0.04 0.00 - 0.10 K/cumm [facility] Neutrophil pct 57.2 % [facility] Comment: Interpretive Data Percent cell count reference ranges are not reported, since discordance with absolute values may lead to misinterpretation of CBC data. Current Interpretive Data was last revised on 2018. Imm gran pct 5.0 % [facility] Comment: Interpretive Data Percent cell count reference ranges are not reported, since discordance with absolute values may lead to misinterpretation of CBC data. Current Interpretive Data was last revised on 2018. Lymphocyte pct 19.4 % [facility] Comment: Interpretive Data Percent cell count reference ranges are not reported, since discordance with absolute values may lead to misinterpretation of CBC data. Current Interpretive Data was last revised on 2018. Monocyte pct 14.4 % [facility] Comment: Interpretive Data Percent cell count reference ranges are not reported, since discordance with absolute values may lead to misinterpretation of CBC data. Current Interpretive Data was last revised on 2018. Eosinophil pct 3.0 % [facility] Comment: Interpretive Data Percent cell count reference ranges are not reported, since discordance with absolute values may lead to misinterpretation of CBC data. Current Interpretive Data was last revised on 2018. Basophil pct 1.0 % [facility] Comment: Interpretive Data Percent cell count reference ranges are not reported, since discordance with absolute values may lead to misinterpretation of CBC data. Current Interpretive Data was last revised on 2018. Blood 04/13/2025 12:0 0 PM CDT 04/13/2025 12:29 PM CDT us Julienne Ramon MD LAB BLOOD ORDERABLES Final Result [facility] Department [place] [address] * (ABNORMAL) CBC with auto differential (04/13/2025 12:00 PM CDT) [facility] WBC 3.97 3.80 - 9.90 K/cumm Hgb 9.1(L) 11.9 - 15.5 g/dL [facility] Hct 28.6(L) 35.6 - 45.5 % [facility] Plt 265 150 - 400 K/cumm [facility] MPV 8.9(L) 9.1 - 12.3 fL [facility] RBC 3.11(L) 3.90 - 5.20 M/cumm [facility] MCV 92.0 81.3 - 96.4 fL [facility] MCH 29.3 27.1 - 33.3 pg [facility] MCHC 31.8(L) 32.3 - 35.7 g/dL [facility] RDW CV 17.2(H) 11.1 - 14.9 % [facility] RDW SD 53.0(H) 35.7 - 48.1 fL [facility] NRBC abs 0.00 0.00 - 0.01 K/cumm [facility] Blood 04/13/2025 12:0 0 PM CDT 04/13/2025 12:29 PM CDT us Julienne Ramon MD LAB BLOOD ORDERABLES Final Result [facility] [place] [address] * (ABNORMAL) POCT glucose (04/13/2025 11:40 AM CDT) [facility] Glucose, POC 287(H) 70 - 199 mg/dL Blood 04/13/2025 11:4 0 AM CDT 04/13/2025 11:40 AM CDT Julienne Ramon MD LAB POCT O RDERABLES - DEVICE Final Result [facility] Department [place] [employer] [place] [address] * (ABNORMAL) POCT glucose (04/13/2025 7:36 AM CDT) Glucose, POC 230(H) 70 - 199 mg/dL Blood 04/13/2025 7:36 AM CDT 04/13/2025 7:36 AM CDT Julienne Ramon MD LAB POCT O RDERABLES - DEVICE Final Result [facility] Department [place] [address] * (ABNORMAL) Differential, auto (04/13/2025 5:58 AM CDT) Pathologist [facility] Neutrophil abs 2.63 1.50 - 6.50 K/cumm Imm gran abs 0.21(H) 0.00 - 0.10 K/cumm [facility] Lymphocyte abs 0.64(L) 0.80 - 3.30 K/cumm [facility] Monocyte abs 0.67 0.20 - 0.80 K/cumm [facility] Eosinophil abs 0.13 0.00 - 0.50 K/cumm [facility] Basophil abs 0.03 0.00 - 0.10 K/cumm [facility] Neutrophil pct 61.1 % [facility] Comment: Interpretive Data Percent cell count reference ranges are not reported, since discordance with absolute values may lead to misinterpretation of CBC data. Current Interpretive Data was last revised on 2018. Imm gran pct 4.9 % [facility] Comment: Interpretive Data Percent cell count reference ranges are not reported, since discordance with absolute values may lead to misinterpretation of CBC data. Current Interpretive Data was last revised on 2018. Lymphocyte pct 14.8 % [facility] Comment: Interpretive Data Percent cell count reference ranges are not reported, since discordance with absolute values may lead to misinterpretation of CBC data. Current Interpretive Data was last revised on 2018. Monocyte pct 15.5 % [facility] Comment: Interpretive Data Percent cell count reference ranges are not reported, since discordance with absolute values may lead to misinterpretation of CBC data. Current Interpretive Data was last revised on 2018. Eosinophil pct 3.0 % [facility] Comment: Interpretive Data Percent cell count reference ranges are not reported, since discordance with absolute values may lead to misinterpretation of CBC data. Current Interpretive Data was last revised on 2018. Basophil pct 0.7 % [facility] Comment: Interpretive Data Percent cell count reference ranges are not reported, since discordance with absolute values may lead to misinterpretation of CBC data. Current Interpretive Data was last revised on 2018. Blood 04/13/2025 5:58 AM CDT 04/13/2025 6:18 AM CDT us Julienne Ramon MD LAB BLOOD ORDERABLES Final Result [facility] Department [place] [address] * (ABNORMAL) CBC with auto differential (04/13/2025 5:58 AM CDT) WBC 4.31 3.80 - 9.90 K/cumm Hgb 9.4(L) 11.9 - 15.5 g/dL [facility] Hct 27.8(L) 35.6 - 45.5 % [facility] Plt 265 150 - 400 K/cumm [facility] MPV 8.9(L) 9.1 - 12.3 fL [facility] RBC 3.08(L) 3.90 - 5.20 M/cumm [facility] MCV 90.3 81.3 - 96.4 fL [facility] MCH 30.5 27.1 - 33.3 pg [facility] MCHC 33.8 32.3 - 35.7 g/dL [facility] RDW CV 17.2(H) 11.1 - 14.9 % [facility] RDW SD 52.2(H) 35.7 - 48.1 fL [facility] NRBC abs 0.00 0.00 - 0.01 K/cumm [facility] Blood 04/13/2025 5:58 AM CDT 04/13/2025 6:18 AM CDT Julienne Ramon MD LAB BLOOD ORDERABLES Final Result [facility] Department [place] [address] * (ABNORMAL) Differential, auto (04/13/2025 1:00 AM CDT) Neutrophil abs 2.29 1.50 - 6.50 K/cumm Imm gran abs 0.20(H) 0.00 - 0.10 K/cumm [facility] Lymphocyte abs 1.03 0.80 - 3.30 K/cumm [facility] Monocyte abs 0.68 0.20 - 0.80 K/cumm [facility] Eosinophil abs 0.11 0.00 - 0.50 K/cumm [facility] Basophil abs 0.05 0.00 - 0.10 K/cumm [facility] Neutrophil pct 52.6 % [facility] Comment: Interpretive Data Percent cell count reference ranges are not reported, since discordance with absolute values may lead to misinterpretation of CBC data. Current Interpretive Data was last revised on 2018. Imm gran pct 4.6 % [facility] Comment: Interpretive Data Percent cell count reference ranges are not reported, since discordance with absolute values may lead to misinterpretation of CBC data. Current Interpretive Data was last revised on 2018. Lymphocyte pct 23.6 % [facility] Comment: Interpretive Data Percent cell count reference ranges are not reported, since discordance with absolute values may lead to misinterpretation of CBC data. Current Interpretive Data was last revised on 2018. Monocyte pct 15.6 % [facility] Comment: Interpretive Data Percent cell count reference ranges are not reported, since discordance with absolute values may lead to misinterpretation of CBC data. Current Interpretive Data was last revised on 2018. Eosinophil pct 2.5 % [facility] Comment: Interpretive Data Percent cell count reference ranges are not reported, since discordance with absolute values may lead to misinterpretation of CBC data. Current Interpretive Data was last revised on 2018. Basophil pct 1.1 % [facility] Comment: Interpretive Data Percent cell count reference ranges are not reported, since discordance with absolute values may lead to misinterpretation of CBC data. Current Interpretive Data was last revised on 2018. Blood 04/13/2025 1:00 AM CDT 04/13/2025 1:23 AM CDT us Julienne Ramon MD LAB BLOOD ORDERABLES Final Result [facility] Department [place] [address] * (ABNORMAL) CBC with auto differential (04/13/2025 1:00 AM CDT) WBC 4.36 3.80 - 9.90 K/cumm Hgb 8.9(L) 11.9 - 15.5 g/dL [facility] Hct 27.0(L) 35.6 - 45.5 % [facility] Plt 260 150 - 400 K/cumm [facility] MPV 9.0(L) 9.1 - 12.3 fL [facility] RBC 2.97(L) 3.90 - 5.20 M/cumm [facility] MCV 90.9 81.3 - 96.4 fL [facility] MCH 30.0 27.1 - 33.3 pg [facility] MCHC 33.0 32.3 - 35.7 g/dL [facility] RDW CV 17.2(H) 11.1 - 14.9 % [facility] RDW SD 53.4(H) 35.7 - 48.1 fL [facility] NRBC abs 0.00 0.00 - 0.01 K/cumm [facility] Blood 04/13/2025 1:00 AM CDT 04/13/2025 1:23 AM CDT Julienne Ramon MD LAB BLOOD ORDERABLES Final Result Performing Organization Address [facility] Co de Phone Number [facility] [place] [address] * (ABNORMAL) POCT glucose (04/12/2025 9:52 PM CDT) Pathologist [facility] Glucose, POC 294(H) 70 - 199 mg/dL Blood 04/12/2025 9:52 PM CDT 04/12/2025 9:52 PM CDT Julienne Ramon MD LAB POCT O RDERABLES - DEVICE Final Result Performing Organization Address [facility] Co de Phone Number [facility] [place] [address] * (ABNORMAL) POCT glucose (04/12/2025 7:34 PM CDT) [facility] Glucose, POC 242(H) 70 - 199 mg/dL Blood 04/12/2025 7:34 PM CDT 04/12/2025 7:34 PM CDT Julienne Ramon MD LAB POCT O RDERABLES - DEVICE Final Result Performing Organization Address [facility] Co de Phone Number [facility] [place] [address] * (ABNORMAL) Differential, auto (04/12/2025 5:04 PM CDT) Pathologist [facility] Neutrophil abs 2.58 1.50 - 6.50 K/cumm Imm gran abs 0.20(H) 0.00 - 0.10 K/cumm [facility] Lymphocyte abs 0.71(L) 0.80 - 3.30 K/cumm [facility] Monocyte abs 0.59 0.20 - 0.80 K/cumm [facility] Eosinophil abs 0.10 0.00 - 0.50 K/cumm [facility] Basophil abs 0.05 0.00 - 0.10 K/cumm [facility] Neutrophil pct 61.0 % [facility] Comment: Interpretive Data Percent cell count reference ranges are not reported, since discordance with absolute values may lead to misinterpretation of CBC data. Current Interpretive Data was last revised on 2018. Imm gran pct 4.7 % [facility] Comment: Interpretive Data Percent cell count reference ranges are not reported, since discordance with absolute values may lead to misinterpretation of CBC data. Current Interpretive Data was last revised on 2018. Lymphocyte pct 16.8 % [facility] Comment: Interpretive Data Percent cell count reference ranges are not reported, since discordance with absolute values may lead to misinterpretation of CBC data. Current Interpretive Data was last revised on 2018. Monocyte pct 13.9 % [facility] Comment: Interpretive Data Percent cell count reference ranges are not reported, since discordance with absolute values may lead to misinterpretation of CBC data. Current Interpretive Data was last revised on 2018. Eosinophil pct 2.4 % [facility] Comment: Interpretive Data Percent cell count reference ranges are not reported, since discordance with absolute values may lead to misinterpretation of CBC data. Current Interpretive Data was last revised on 2018. Basophil pct 1.2 % [facility] Comment: Interpretive Data Percent cell count reference ranges are not reported, since discordance with absolute values may lead to misinterpretation of CBC data. Current Interpretive Data was last revised on 2018. Blood 04/12/2025 5:04 PM CDT 04/12/2025 5:28 PM CDT us Julienne Ramon MD LAB BLOOD ORDERABLES Final Result [facility] Department [place] [address] * (ABNORMAL) CBC with auto differential (04/12/2025 5:04 PM CDT) WBC 4.23 3.80 - 9.90 K/cumm Hgb 9.7(L) 11.9 - 15.5 g/dL [facility] Hct 28.9(L) 35.6 - 45.5 % [facility] Plt 303 150 - 400 K/cumm [facility] MPV 9.0(L) 9.1 - 12.3 fL [facility] RBC 3.26(L) 3.90 - 5.20 M/cumm [facility] MCV 88.7 81.3 - 96.4 fL [facility] MCH 29.8 27.1 - 33.3 pg [facility] MCHC 33.6 32.3 - 35.7 g/dL [facility] RDW CV 17.2(H) 11.1 - 14.9 % [facility] RDW SD 50.8(H) 35.7 - 48.1 fL [facility] NRBC abs 0.00 0.00 - 0.01 K/cumm [facility] Blood 04/12/2025 5:04 PM CDT 04/12/2025 5:28 PM CDT us Julienne Ramno MD LAB BLOOD ORDERABLES Final Result Performing Organization Address City/[facility]/ZIP Co de Phone Number [facility] Department [place] [address] * POCT glucose (04/12/2025 4:42 PM CDT) [facility] Glucose, POC 198 70 - 199 mg/dL Blood 04/12/2025 4:42 PM CDT 04/12/2025 4:42 PM CDT us Julienne Ramon MD LAB POCT O RDERABLES - DEVICE Final Result Performing Organization Address City/[facility]/ZIP Co de Phone Number [facility] Department [place] [address] * (ABNORMAL) Differential, auto (04/12/2025 12:00 PM CDT) Neutrophil abs 2.61 1.50 - 6.50 K/cumm Imm gran abs 0.21(H) 0.00 - 0.10 K/cumm [facility] Lymphocyte abs 0.78(L) 0.80 - 3.30 K/cumm [facility] Monocyte abs 0.63 0.20 - 0.80 K/cumm [facility] Eosinophil abs 0.09 0.00 - 0.50 K/cumm [facility] Basophil abs 0.05 0.00 - 0.10 K/cumm [facility] Neutrophil pct 59.8 % [facility] Comment: Interpretive Data Percent cell count reference ranges are not reported, since discordance with absolute values may lead to misinterpretation of CBC data. Current Interpretive Data was last revised on 2018. Imm gran pct 4.8 % [facility] Comment: Interpretive Data Percent cell count reference ranges are not reported, since discordance with absolute values may lead to misinterpretation of CBC data. Current Interpretive Data was last revised on 2018. Lymphocyte pct 17.8 % [facility] Comment: Interpretive Data Percent cell count reference ranges are not reported, since discordance with absolute values may lead to misinterpretation of CBC data. Current Interpretive Data was last revised on 2018. Monocyte pct 14.4 % [facility] Comment: Interpretive Data Percent cell count reference ranges are not reported, since discordance with absolute values may lead to misinterpretation of CBC data. Current Interpretive Data was last revised on 2018. Eosinophil pct 2.1 % [facility] Comment: Interpretive Data Percent cell count reference ranges are not reported, since discordance with absolute values may lead to misinterpretation of CBC data. Current Interpretive Data was last revised on 2018. Basophil pct 1.1 % [facility] Comment: Interpretive Data Percent cell count reference ranges are not reported, since discordance with absolute values may lead to misinterpretation of CBC data. Current Interpretive Data was last revised on 2018. Blood 04/12/2025 12:0 0 PM CDT 04/12/2025 12:47 PM CDT us Julienne Ramon MD LAB BLOOD ORDERABLES Final Result [facility] [place] [address] * (ABNORMAL) CBC with auto differential (04/12/2025 12:00 PM CDT) Pathologist [facility] WBC 4.37 3.80 - 9.90 K/cumm Hgb 9.5(L) 11.9 - 15.5 g/dL [facility] Hct 28.9(L) 35.6 - 45.5 % [facility] Plt 291 150 - 400 K/cumm [facility] MPV 8.9(L) 9.1 - 12.3 fL [facility] RBC 3.23(L) 3.90 - 5.20 M/cumm [facility] MCV 89.5 81.3 - 96.4 fL [facility] MCH 29.4 27.1 - 33.3 pg [facility] MCHC 32.9 32.3 - 35.7 g/dL [facility] RDW CV 17.0(H) 11.1 - 14.9 % [facility] RDW SD 51.8(H) 35.7 - 48.1 fL [facility] NRBC abs 0.00 0.00 - 0.01 K/cumm [facility] Blood 04/12/2025 12:0 0 PM CDT 04/12/2025 12:47 PM CDT us Julienne Ramon MD LAB BLOOD ORDERABLES Final Result [facility] Department [place] [address] * (ABNORMAL) POCT glucose (04/12/2025 11:22 AM CDT) Glucose, POC 213(H) 70 - 199 mg/dL Blood 04/12/2025 11:2 2 AM CDT 04/12/2025 11:22 AM CDT us Julienne Ramon MD LAB POCT O RDERABLES - DEVICE Final Result Performing Organization Address [facility] Co de Phone Number [facility] [place] [address] * POCT glucose (04/12/2025 9:18 AM CDT) [facility] Signature Glucose, POC 171 70 - 199 mg/dL Blood 04/12/2025 9:18 AM CDT 04/12/2025 9:18 AM CDT Julienne Ramon MD LAB POCT O RDERABLES - DEVICE Final Result Performing Organization Address [facility] de Phone Number [facility] Department [place] [address] * Colonoscopy (04/12/2025 7:57 AM CDT) Anatomical Region Laterality Modality Other Narrative Procedure Note Nasrin Armendariz MD - 04/12/2025 7:57 AM CDT [facility] Patient Name: Gregg Crocker Procedure Date: 04/12/2025 7:57 AM Date of : 1950 Admit Type: Outpatient Age: 74 Gender: Female Attending MD: Nasrin Armendariz M.D. Room: [facility] ENDOSCOPY Note Status: Finalized Procedure: Colonoscopy Indications: hematochezia, known rectal ulcer treated with hemostatic powder 04/10 with persistent bleeding. Referring MD: Rosa Galvan M.D. Providers: Nasrin Armendariz M.D., Gauatm Knapp M.D. Medicines: Monitored Anesthesia Care Complications: No immediate complications. Estimated Blood Loss: Estimated blood loss: none. Procedure: Pre-Anesthesia Assessment: - Prior to the procedure, a History and Physicalwas performed, and patient medications, allergies and sensitivities were reviewed. The patient'stolerance of previous anesthesia was reviewed. - The risks and benefits of the procedure and the sedation options and risks were discussed with the patient. All questions were answered and informed consent was obtained. - Immediately prior to administration ofmedications, the patient was re-assessed for adequacy to receive sedatives. The benefits, risks and alternatives of theprocedure and sedation were discussed and informed consentwas obtained. All questions were answered. Please referto the signed informed consent document in the medical record. The scope was passed under direct vision.The [id number] endoscope was introduced through the anus and advanced to the the terminal ileum.The colonoscopy was performed without difficulty. The patient tolerated the procedure well. The qualityof the bowel preparation was good. The bowelpreparation used was MoviPrep via split dose instruction. Findings: Clotted blood was found in the rectum. A large area of ulcerated mucosa was found in the rectum withadherent clot. Oozing was present. The clot was not removed. To stop active bleeding, hemostatic spray was deployed. Two sprays were applied.There was no bleeding at the end of the procedure. Multiple small-mouthed diverticula were found in the sigmoid colon. Multiple polyps were seen in the colon throughout the procedure. Impression: - Blood in the rectum. - Ulcerated rectal mucosa with oozing and adherent clot. Hemostatic spray applied. - Diverticulosis in the sigmoid colon. - Polyps noted in colon. - No specimens collected. Recommendation: - Avoid fecal management devices or any enemas x 48 hours. - Consider sucralfate enemas after 48 hours to aidin ulcer healing. - Repeat colonoscopy non-urgently when patient isout of the hospital for polypectomy. - Further recommendations per inpatient GIservice. Attending Participation: I was present and participated during the entire procedure, including non-otoole portions. Electronically signed by Nasrin Armendariz MD Nasrin Armendariz M.D. 04/12/2025 9:03:10 AM Number of Addenda: 0 Note Initiated On: 04/12/2025 7:57 AM Nasrin Armendariz MD ENDOSCOPY PROCEDURES Final Res ult * POCT glucose (04/12/2025 7:29 AM CDT) [facility] Glucose, POC 184 70 - 199 mg/dL Blood 04/12/2025 7:29 AM CDT 04/12/2025 7:29 AM CDT Julienne Ramon MD LAB POCT O RDERABLES - DEVICE Final Result [facility] Department [place] [address] * Infection Prevention Krystal auris PCR, surveillance Axilla/Groin (04/12/2025 4:19 AM CDT) [facility] Krystal auris DNA Not Detected Not Detected [facility] Comment: Interpretive Data Testing performed by [facility] using the Florentin pawel 6800 Krystal auris assay. This assay detects DNA from Krystal auris using Real-Time PCR. This assay is laboratory developed and is not cleared by the [place] Food and Drug Administration. The performance characteristics have been verified by the [facility]. Axilla/Groin 04/12/2025 4:19 AM CDT 04/12/2025 5:40 AM CDT Narrative [facility] - 04/12/2025 12:05 PM CDT Order placed by [facility] due to ring surveillance. us Instant Order Generic Provider LAB MICROBIOLOGY - GENERAL ORDERABLES Final Result [facility] Department [place] [address] [facility] * (ABNORMAL) Differential, auto (04/12/2025 3:52 AM CDT) Neutrophil abs 3.18 1.50 - 6.50 K/cumm Imm gran abs 0.13(H) 0.00 - 0.10 K/cumm [facility] Lymphocyte abs 0.81 0.80 - 3.30 K/cumm [facility] Monocyte abs 0.63 0.20 - 0.80 K/cumm [facility] Eosinophil abs 0.10 0.00 - 0.50 K/cumm [facility] Basophil abs 0.04 0.00 - 0.10 K/cumm [facility] Neutrophil pct 65.0 % [facility] Comment: Interpretive Data Percent cell count reference ranges are not reported, since discordance with absolute values may lead to misinterpretation of CBC data. Current Interpretive Data was last revised on 2018. Imm gran pct 2.7 % [facility] Comment: Interpretive Data Percent cell count reference ranges are not reported, since discordance with absolute values may lead to misinterpretation of CBC data. Current Interpretive Data was last revised on 2018. Lymphocyte pct 16.6 % [facility] Comment: Interpretive Data Percent cell count reference ranges are not reported, since discordance with absolute values may lead to misinterpretation of CBC data. Current Interpretive Data was last revised on 2018. Monocyte pct 12.9 % [facility] Comment: Interpretive Data Percent cell count reference ranges are not reported, since discordance with absolute values may lead to misinterpretation of CBC data. Current Interpretive Data was last revised on 2018. Eosinophil pct 2.0 % [facility] Comment: Interpretive Data Percent cell count reference ranges are not reported, since discordance with absolute values may lead to misinterpretation of CBC data. Current Interpretive Data was last revised on 2018. Basophil pct 0.8 % [facility] Comment: Interpretive Data Percent cell count reference ranges are not reported, since discordance with absolute values may lead to misinterpretation of CBC data. Current Interpretive Data was last revised on 2018. Blood 04/12/2025 3:52 AM CDT 04/12/2025 4:09 AM CDT Julienne Ramon MD LAB BLOOD ORDERABLES Final Result [facility] Department [place] [address] * (ABNORMAL) CBC with auto differential (04/12/2025 3:52 AM CDT) WBC 4.89 3.80 - 9.90 K/cumm Hgb 9.0(L) 11.9 - 15.5 g/dL [facility] Hct 27.1(L) 35.6 - 45.5 % [facility] Plt 286 150 - 400 K/cumm [facility] MPV 9.1 9.1 - 12.3 fL [facility] RBC 3.04(L) 3.90 - 5.20 M/cumm [facility] MCV 89.1 81.3 - 96.4 fL [facility] MCH 29.6 27.1 - 33.3 pg [facility] MCHC 33.2 32.3 - 35.7 g/dL [facility] RDW CV 16.7(H) 11.1 - 14.9 % [facility] RDW SD 50.8(H) 35.7 - 48.1 fL [facility] NRBC abs 0.02(H) 0.00 - 0.01 K/cumm [facility] Blood 04/12/2025 3:52 AM CDT 04/12/2025 4:09 AM CDT us Julienne Ramon MD LAB BLOOD ORDERABLES Final Result [facility] Department [place] [address] * (ABNORMAL) Differential, auto (04/12/2025 1:18 AM CDT) Neutrophil abs 3.61 1.50 - 6.50 K/cumm Imm gran abs 0.16(H) 0.00 - 0.10 K/cumm [facility] Lymphocyte abs 0.85 0.80 - 3.30 K/cumm [facility] Monocyte abs 0.73 0.20 - 0.80 K/cumm [facility] Eosinophil abs 0.07 0.00 - 0.50 K/cumm [facility] Basophil abs 0.07 0.00 - 0.10 K/cumm [facility] Neutrophil pct 65.7 % [facility] Comment: Interpretive Data Percent cell count reference ranges are not reported, since discordance with absolute values may lead to misinterpretation of CBC data. Current Interpretive Data was last revised on 2018. Imm gran pct 2.9 % [facility] Comment: Interpretive Data Percent cell count reference ranges are not reported, since discordance with absolute values may lead to misinterpretation of CBC data. Current Interpretive Data was last revised on 2018. Lymphocyte pct 15.5 % [facility] Comment: Interpretive Data Percent cell count reference ranges are not reported, since discordance with absolute values may lead to misinterpretation of CBC data. Current Interpretive Data was last revised on 2018. Monocyte pct 13.3 % [facility] Comment: Interpretive Data Percent cell count reference ranges are not reported, since discordance with absolute values may lead to misinterpretation of CBC data. Current Interpretive Data was last revised on 2018. Eosinophil pct 1.3 % [facility] Comment: Interpretive Data Percent cell count reference ranges are not reported, since discordance with absolute values may lead to misinterpretation of CBC data. Current Interpretive Data was last revised on 2018. Basophil pct 1.3 % [facility] Comment: Interpretive Data Percent cell count reference ranges are not reported, since discordance with absolute values may lead to misinterpretation of CBC data. Current Interpretive Data was last revised on 2018. Blood 04/12/2025 1:1 8 AM CDT 04/12/2025 1:31 AM CDT us Julienne Ramon MD LAB BLOOD ORDERABLES Final Result [facility] Department [place] [address] * (ABNORMAL) CBC with auto differential (04/12/2025 1:18 AM CDT) WBC 5.49 3.80 - 9.90 K/cumm Hgb 9.6(L) 11.9 - 15.5 g/dL [facility] Hct 29.1(L) 35.6 - 45.5 % [facility] Plt 297 150 - 400 K/cumm [facility] MPV 9.0(L) 9.1 - 12.3 fL [facility] RBC 3.25(L) 3.90 - 5.20 M/cumm [facility] MCV 89.5 81.3 - 96.4 fL [facility] MCH 29.5 27.1 - 33.3 pg [facility] MCHC 33.0 32.3 - 35.7 g/dL [facility] RDW CV 16.5(H) 11.1 - 14.9 % [facility] RDW SD 51.0(H) 35.7 - 48.1 fL [facility] NRBC abs 0.00 0.00 - 0.01 K/cumm [facility] Blood 04/12/2025 1:18 AM CDT 04/12/2025 1:31 AM CDT Julienne Ramon MD LAB BLOOD ORDERABLES Final Result Performing Organization Address City/[facility]/ZIP Co de Phone Number [facility] Department [place] [address] * Transfuse RBC (04/12/2025 12:53 AM CDT) Blood Julienne Ramon MD BLOOD SANDOVAL SFUSION ORDERABLES Final Result Performing Organization Address City/[facility] Co de Phone Number [facility]IS [facility] [place] [address] * eGFR (04/11/2025 9:08 PM CDT) eGFR 61 >=60 mL/min/1. 73 m2 Comment: Interpretive Data Reference Interval Normal >/= 90 mL/min/1.73m2 Mildly decreased* 60 - 89 mL/min/1.73m2 Mildly to moderately decreased 45 - 59 mL/min/1.73m2 Moderately to severely decreased 30 - 44 mL/min/1.73m2 Severely decreased 15 - 29 mL/min/1.73m2 Kidney Failure < 15 mL/min/1.73m2 *Relative to young adult level Estimated glomerular filtration rate is determined by the 2020 CKD-EPI equation recommended by the National Kidney Foundation (A Unifying Approach to GFR Estimation: Recommendations of the NKF-ASK Task Force on Reassessing the Inclusion of Race in Diagnosing Kidney Disease, JASN 2020). The CKD-EPI equation should not be used for patients with unstable renal function and has not been validated in children and those over 70. Current interpretive data was last reviewed 2021. Blood 04/11/2025 9:08 PM CDT 04/11/2025 10:11 PM CDT Julienne Ramon MD LAB BLOOD ORDERABLES Final Result Performing Organization Address [facility] Co de Phone Number [facility] Department [place] [address] * (ABNORMAL) Protime-INR (04/11/2025 9:08 PM CDT) PT 14.0(H) 9.7 - 13.0 sec INR 1.29(H) 0.90 - 1.20 [facility] Comment: Interpretive data Oral anticoagulant therapeutic ranges: Venous thromboembolism prophylaxis or treatment: 2.0-3.0 CARDIOLOGY Standard range: 2.0-3.0 High-intensity range: 2.5-3.5 Refer to indication-specific guidelines for appropriate target ranges for prosthetic heart valve replacement. Current interpretive data was last revised on 2019. Blood 04/11/2025 9:08 PM CDT 04/11/2025 9:35 PM CDT Julienne Jenae Ramon MD LAB BLOOD ORDERABLES Final Result Performing Organization Address [facility] Co de Phone Number [facility] Department [place] [address] * (ABNORMAL) Basic metabolic panel (04/11/2025 9:08 PM CDT) Sodium 137 135 - 145 mmol/L Potassium, pl 4.2 3.3 - 4.9 mmol/L [facility] Chloride 104 97 - 110 mmol/L [facility] CO2 26 22 - 32 mmol/L [facility] Anion gap 7 2 - 15 mmol/L [facility] BUN 13 6 - 25 mg/dL [facility] Creatinine 0.98 0.60 - 1.10 mg/dL [facility] Glucose 179 70 - 199 mg/dL [facility] Comment: Interpretive Data Fasting glucose >/= 126 mg/dl is diagnostic for diabetes. Fasting is defined as no caloric intake for at least 8 hours. Fasting glucose between 100 mg/dl to 125 mg/dl is diagnostic of prediabetes. In a patient with classic symptoms of hyperglycemia or hyperglycemic crisis, a random glucose >/= 200 mg/dl is diagnostic for diabetes. In the absence of unequivocal hyperglycemia, results should be confirmed by repeat testing. The classification and Diagnosis of Diabetes Diabetes Care 2021; 46: S19-S40. Current interpretive data was last revised 2022. Calcium 8.1(L) 8.5 - 10.3 mg/dL [facility] Blood 04/11/2025 9:08 PM CDT 04/11/2025 10:11 PM CDT us Julienne Ramon MD LAB BLOOD ORDERABLES Final Result Performing Organization Address City/[facility] Co de Phone Number [facility] Department of [place] [address] * (ABNORMAL) Arterial Blood gas w/Lactate POCT (04/11/2025 8:59 PM CDT) [facility] Lactate POC i-STAT 0.6(L) 0.7 - 2.0 mmol/L pH POC 7.43 7.35 - 7.45 [facility] pCO2, Art POC 39 35 - 45 mmHg [facility] PO2 POC 41(L) 80 - 105 mmHg [facility] CO2, total POC 27 20 - 30 mmol/L [facility] HCO3, POC 26 21 - 30 mmol/L [facility] BE POC 1 -2 - 3 mmol/L [facility] O2 sat POC 78(L) 95 - 98 % [facility] Blood 04/11/2025 8:59 PM CDT 04/11/2025 8:59 PM CDT us Julienne Ramon MD LAB BLOOD ORDERABLES Final Result Performing Organization Address [facility] Co de Phone Number [facility] Department [place] [address] * (ABNORMAL) CBC without differential (04/11/2025 8:59 PM CDT) [facility] WBC 4.92 3.80 - 9.90 K/cumm Hgb 8.5(L) 11.9 - 15.5 g/dL [facility] Hct 25.4(L) 35.6 - 45.5 % [facility] Plt 321 150 - 400 K/cumm [facility] MPV 9.2 9.1 - 12.3 fL [facility] RBC 2.81(L) 3.90 - 5.20 M/cumm [facility] MCV 90.4 81.3 - 96.4 fL [facility] MCH 30.2 27.1 - 33.3 pg [facility] MCHC 33.5 32.3 - 35.7 g/dL [facility] RDW CV 16.6(H) 11.1 - 14.9 % [facility] RDW SD 52.5(H) 35.7 - 48.1 fL [facility] NRBC abs 0.00 0.00 - 0.01 K/cumm [facility] Blood 04/11/2025 8:59 PM CDT 04/11/2025 9:43 PM CDT Narrative [facility] - 04/11/2025 9:49 PM CDT 1 hour after transfusion of red blood cells is complete us Huber Estrada MD LAB BLOOD ORDERABLES Elena l Result [facility] Department of [employer] [place] [address] * POCT glucose (04/11/2025 8:08 PM CDT) [facility] Glucose, POC 190 70 - 199 mg/dL Blood 04/11/2025 8:08 PM CDT 04/11/2025 8:08 PM CDT us Julienne Ramon MD LAB POCT O RDERABLES - DEVICE Final Result [facility] Department of [employer] [place] [address] * (ABNORMAL) Differential, auto (04/11/2025 6:36 PM CDT) Neutrophil abs 2.75 1.50 - 6.50 K/cumm Imm gran abs 0.09 0.00 - 0.10 K/cumm [facility] Lymphocyte abs 0.77(L) 0.80 - 3.30 K/cumm [facility] Monocyte abs 0.54 0.20 - 0.80 K/cumm [facility] Eosinophil abs 0.04 0.00 - 0.50 K/cumm [facility] Basophil abs 0.03 0.00 - 0.10 K/cumm [facility] Neutrophil pct 65.3 % [facility] Comment: Interpretive Data Percent cell count reference ranges are not reported, since discordance with absolute values may lead to misinterpretation of CBC data. Current Interpretive Data was last revised on 2018. Imm gran pct 2.1 % [facility] Comment: Interpretive Data Percent cell count reference ranges are not reported, since discordance with absolute values may lead to misinterpretation of CBC data. Current Interpretive Data was last revised on 2018. Lymphocyte pct 18.2 % [facility] Comment: Interpretive Data Percent cell count reference ranges are not reported, since discordance with absolute values may lead to misinterpretation of CBC data. Current Interpretive Data was last revised on 2018. Monocyte pct 12.8 % [facility] Comment: Interpretive Data Percent cell count reference ranges are not reported, since discordance with absolute values may lead to misinterpretation of CBC data. Current Interpretive Data was last revised on 2018. Eosinophil pct 0.9 % [facility] Comment: Interpretive Data Percent cell count reference ranges are not reported, since discordance with absolute values may lead to misinterpretation of CBC data. Current Interpretive Data was last revised on 2018. Basophil pct 0.7 % [facility] Comment: Interpretive Data Percent cell count reference ranges are not reported, since discordance with absolute values may lead to misinterpretation of CBC data. Current Interpretive Data was last revised on 2018. Blood 04/11/2025 6:36 PM CDT 04/11/2025 7:40 PM CDT Julienne Ramon MD LAB BLOOD ORDERABLES Final Result Performing Organization Address City/[facility]/ZIP Co de Phone Number [facility] Department [place] [address] * (ABNORMAL) CBC with auto differential (04/11/2025 6:36 PM CDT) [facility] WBC 4.22 3.80 - 9.90 K/cumm Hgb 9.0(L) 11.9 - 15.5 g/dL [facility] Hct 27.0(L) 35.6 - 45.5 % [facility] Plt 305 150 - 400 K/cumm [facility] MPV 9.3 9.1 - 12.3 fL [facility] RBC 3.02(L) 3.90 - 5.20 M/cumm [facility] MCV 89.4 81.3 - 96.4 fL [facility] MCH 29.8 27.1 - 33.3 pg [facility] MCHC 33.3 32.3 - 35.7 g/dL [facility] RDW CV 16.5(H) 11.1 - 14.9 % [facility] RDW SD 50.8(H) 35.7 - 48.1 fL [facility] NRBC abs 0.02(H) 0.00 - 0.01 K/cumm [facility] Blood 04/11/2025 6:36 PM CDT 04/11/2025 7:40 PM CDT Julienne Ramon MD LAB BLOOD ORDERABLES Final Result [facility] Department [place] [address] * Transfuse RBC (04/11/2025 6:27 PM CDT) Blood Julienne Ramon MD BLOOD SANDOVAL SFUSION ORDERABLES Final Result Performing Organization Address [facility] Co de Phone Number [facility] [place] [address] * Transfuse platelets (04/11/2025 6:08 PM CDT) Blood Julienne Ramon MD BLOOD SANDOVAL SFUSION ORDERABLES Final Result Performing Organization Address [facility] Co de Phone Number [facility] [place] [address] * (ABNORMAL) POCT glucose (04/11/2025 5:31 PM CDT) Glucose, POC 200(H) 70 - 199 mg/dL Blood 04/11/2025 5:31 PM CDT 04/11/2025 5:31 PM CDT Julienne Ramon MD LAB POCT O RDERABLES - DEVICE Final Result Performing Organization Address [facility] de Phone Number [facility] Department [place] [address] * CT Abdomen Pelvis W WO Contrast (04/11/2025 4:35 PM CDT) Anatomical Region Laterality Modality Body N/A Computed Tomogra phy 04/11/2025 4:57 PM CDT Impressions 04/11/2025 4:59 PM CDT 1. Enormous right retroperitoneal hematoma is similar in size to prior study without evidence of active extravasation. 2. Hyperattenuating fluid in the colon may reflect blood products; there is no evidence of active extravasation on the present study. 3. Small right pleural effusion slightly increased in size compared to prior study. 4. Indeterminate right inferior pole renal lesion, possibly hemorrhagic or proteinaceous cyst. There are also hyperattenuating foci in the right kidney on noncontrast examination which are indeterminate, possibly reflecting delayed nephrogram or nephrocalcinosis. This could be better characterized with MRI on a nonemergent basis. Dictated by: Chad Barbour MD The radiology attending physician has personally reviewed this study, and had reviewed and/or edited this written report and agrees with it. Electronically signed by: Gordy Appiah MD, PHD Narrative 04/11/2025 4:59 PM CDT EXAMINATION: Computed tomography of the abdomen and pelvis with and without intravenous contrast HISTORY: Concern for lower GI bleed TECHNIQUE: Transaxial computed tomographic images of the abdomen and pelvis were obtained with and without intravenous contrast according to the GI bleed protocol after the uneventful administration of 119 mL Opti-Ray 350 intravenous contrast. COMPARISON: 04/07/2025 FINDINGS: Imaged portions of the lung bases demonstrate a small right pleural effusion, increased in size compared to prior study. 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 No pneumothorax. The heart is normal in size, there is no pericardial effusion. 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 Multivessel coronary artery calcifications. Hyperattenuating segment 2 lesion unchanged, likely cyst. Gallbladder is normal, there is no biliary ductal dilatation. No focal pancreatic lesions. The spleen and adrenal glands are normal. The kidneys enhance symmetrically, there is no hydronephrosis. There are bilateral renal lesions; a right inferior pole intermediate density lesion is indeterminate (series 6 image 85). Intrinsically hyperdense foci in right kidney on noncontrast examination, nonspecific, could reflect proteinaceous/hemorrhagic cysts or nephrocalcinosis. Additional bilateral hypoattenuating lesions or cysts are too small to characterize. The bladder is normal. The uterus is absent, there are no suspicious adnexal lesions. There is no bowel obstruction, ascites, or pneumoperitoneum. There is high attenuating fluid within the colon without definite evidence of active extravasation. The abdominal aorta is normal in caliber with moderate aortoiliac atherosclerosis. Patent right external iliac stent. There is no abdominopelvic adenopathy. Generalized soft tissue anasarca. No suspicious osseous lesion. There is a redemonstrated right retroperitoneal hematoma which is overall similar in size to prior study. The hematoma measures 19.7 x 19.4 x 23.4 cm in dimension. There is no evidence of active contrast extravasation into the hematoma. Procedure Note Gordy Appiah MD PhD - 04/11/2025 EXAMINATION: Computed tomography of the abdomen and pelvis with and without intravenous contrast HISTORY: Concern for lower GI bleed TECHNIQUE: Transaxial computed tomographic images of the abdomen and pelvis were obtained with and without intravenous contrast according to the GI bleed protocol after the uneventful administration of 119 mL Opti-Ray 350 intravenous contrast. COMPARISON: 04/07/2025 FINDINGS: Imaged portions of the lung bases demonstrate a small right pleural effusion, increased in size compared to prior study. 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 No pneumothorax. The heart is normal in size, there is no pericardial effusion. 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 Multivessel coronary artery calcifications. Hyperattenuating segment 2 lesion unchanged, likely cyst. Gallbladder is normal, there is no biliary ductal dilatation. No focal pancreatic lesions. The spleen and adrenal glands are normal. The kidneys enhance symmetrically, there is no hydronephrosis. There are bilateral renal lesions; a right inferior pole intermediate density lesion is indeterminate (series 6 image 85). Intrinsically hyperdense foci in right kidney on noncontrast examination, nonspecific, could reflect proteinaceous/hemorrhagic cysts or nephrocalcinosis. Additional bilateral hypoattenuating lesions or cysts are too small to characterize. The bladder is normal. The uterus is absent, there are no suspicious adnexal lesions. There is no bowel obstruction, ascites, or pneumoperitoneum. There is high attenuating fluid within the colon without definite evidence of active extravasation. The abdominal aorta is normal in caliber with moderate aortoiliac atherosclerosis. Patent right external iliac stent. There is no abdominopelvic adenopathy. Generalized soft tissue anasarca. No suspicious osseous lesion. There is a redemonstrated right retroperitoneal hematoma which is overall similar in size to prior study. The hematoma measures 19.7 x 19.4 x 23.4 cm in dimension. There is no evidence of active contrast extravasation into the hematoma. IMPRESSION: 1. Enormous right retroperitoneal hematoma is similar in size to prior study without evidence of active extravasation. 2. Hyperattenuating fluid in the colon may reflect blood products; there is no evidence of active extravasation on the present study. 3. Small right pleural effusion slightly increased in size compared to prior study. 4. Indeterminate right inferior pole renal lesion, possibly hemorrhagic or proteinaceous cyst. There are also hyperattenuating foci in the right kidney on noncontrast examination which are indeterminate, possibly reflecting delayed nephrogram or nephrocalcinosis. This could be better characterized with MRI on a nonemergent basis. Dictated by: Chad Barbour MD The radiology attending physician has personally reviewed this study, and had reviewed and/or edited this written report and agrees with it. Electronically signed by: Gordy Appiah MD, PHD Julienne Ramon MD IMG CT PRO CEDURES Final Result * Prepare RBC: 2 Units (04/11/2025 3:20 PM CDT) Product code [id number] Unit Number [id number] [facility] Product Blood Type APOS [facility] Dispense Status PRESUMED TRANSFUSED [facility] Blood 04/11/2025 3:20 PM CDT 04/11/2025 3:20 PM CDT Narrative [facility] - 04/12/2025 4:01 PM CDT Are special requirements needed? (All products are leukoreduced and CMV- safe)- >No Date required:-20250411 LRRBC # of [id number] Reasons:-Active bleeding, Hgb <8 g/dL} Julienne Ramon MD BLOOD BANK PRODUCT ORDERABLES Final Result Performing Organization Address City/[facility] Co de Phone Number [facility] Department [place] [address] * Transfuse RBC (04/11/2025 2:01 PM CDT) Blood Julienne Ramon MD BLOOD SANDOVAL SFUSION ORDERABLES Final Result Performing Organization Address City/[facility]/ZIP Co de Phone Number [facility] Department [place] [address] * (ABNORMAL) Differential, auto (04/11/2025 1:47 PM CDT) Neutrophil abs 3.36 1.50 - 6.50 K/cumm Imm gran abs 0.11(H) 0.00 - 0.10 K/cumm [facility] Lymphocyte abs 0.64(L) 0.80 - 3.30 K/cumm [facility] Monocyte abs 0.71 0.20 - 0.80 K/cumm [facility] Eosinophil abs 0.04 0.00 - 0.50 K/cumm [facility] Basophil abs 0.04 0.00 - 0.10 K/cumm [facility] Neutrophil pct 68.6 % [facility] Comment: Interpretive Data Percent cell count reference ranges are not reported, since discordance with absolute values may lead to misinterpretation of CBC data. Current Interpretive Data was last revised on 2018. Imm gran pct 2.2 % [facility] Comment: Interpretive Data Percent cell count reference ranges are not reported, since discordance with absolute values may lead to misinterpretation of CBC data. Current Interpretive Data was last revised on 2018. Lymphocyte pct 13.1 % [facility] Comment: Interpretive Data Percent cell count reference ranges are not reported, since discordance with absolute values may lead to misinterpretation of CBC data. Current Interpretive Data was last revised on 2018. Monocyte pct 14.5 % [facility] Comment: Interpretive Data Percent cell count reference ranges are not reported, since discordance with absolute values may lead to misinterpretation of CBC data. Current Interpretive Data was last revised on 2018. Eosinophil pct 0.8 % [facility] Comment: Interpretive Data Percent cell count reference ranges are not reported, since discordance with absolute values may lead to misinterpretation of CBC data. Current Interpretive Data was last revised on 2018. Basophil pct 0.8 % [facility] Comment: Interpretive Data Percent cell count reference ranges are not reported, since discordance with absolute values may lead to misinterpretation of CBC data. Current Interpretive Data was last revised on 2018. Blood 04/11/2025 1:47 PM CDT 04/11/2025 2:05 PM CDT us Julienne Ramon MD LAB BLOOD ORDERABLES Final Result Performing Organization Address City/[facility]/ZIP Co de Phone Number [facility] Department [place] [address] * (ABNORMAL) CBC with auto differential (04/11/2025 1:47 PM CDT) [facility] WBC 4.90 3.80 - 9.90 K/cumm Hgb 8.0(L) 11.9 - 15.5 g/dL [facility] Hct 24.3(L) 35.6 - 45.5 % [facility] Plt 337 150 - 400 K/cumm [facility] MPV 9.2 9.1 - 12.3 fL [facility] RBC 2.65(L) 3.90 - 5.20 M/cumm [facility] MCV 91.7 81.3 - 96.4 fL [facility] MCH 30.2 27.1 - 33.3 pg [facility] MCHC 32.9 32.3 - 35.7 g/dL [facility] RDW CV 16.9(H) 11.1 - 14.9 % [facility] RDW SD 53.6(H) 35.7 - 48.1 fL [facility] NRBC abs 0.00 0.00 - 0.01 K/cumm [facility] Blood 04/11/2025 1:47 PM CDT 04/11/2025 2:05 PM CDT Narrative [facility] - 04/11/2025 2:11 PM CDT After first unit prbc transfusion us Julienne Ramon MD LAB BLOOD ORDERABLES Final Result Performing Organization Address [facility]/ZIP Co de Phone Number [facility] Department [place] [address] * (ABNORMAL) aPTT (04/11/2025 1:47 PM CDT) aPTT 27(L) 28 - 38 sec Comment: Interpretive Data Heparin therapeutic range: 66.0 - 100.0 seconds. Range based on correlation with therapeutic heparin activity range of 0.3 - 0.7 Units/mL. Current interpretive data was last revised on 2023. Blood 04/11/2025 1:47 PM CDT 04/11/2025 2:20 PM CDT Julienne Ramon MD LAB BLOOD ORDERABLES Final Result [facility] [place] [address] * (ABNORMAL) Protime-INR (04/11/2025 1:47 PM CDT) [facility] PT 14.0(H) 9.7 - 13.0 sec INR 1.29(H) 0.90 - 1.20 [facility] Comment: Interpretive data Oral anticoagulant therapeutic ranges: Venous thromboembolism prophylaxis or treatment: 2.0-3.0 CARDIOLOGY Standard range: 2.0-3.0 High-intensity range: 2.5-3.5 Refer to indication-specific guidelines for appropriate target ranges for prosthetic heart valve replacement. Current interpretive data was last revised on 2019. Blood 04/11/2025 1:47 PM CDT 04/11/2025 2:20 PM CDT Narrative [facility] - 04/11/2025 2:24 PM CDT May draw with post transfusion CBC Julienne Ramon MD LAB BLOOD ORDERABLES Final Result [facility] [place] [address] * (ABNORMAL) Fibrinogen (04/11/2025 1:47 PM CDT) Fibrinogen 756(H) 170 - 400 mg/dL Blood 04/11/2025 1:47 PM CDT 04/11/2025 2:20 PM CDT Julienne Ramon MD LAB BLOOD ORDERABLES Final Result Performing Organization Address [facility] Co de Phone Number [facility] Department [place] [address] * POCT glucose (04/11/2025 11:48 AM CDT) Glucose, POC 159 70 - 199 mg/dL Blood 04/11/2025 11:4 8 AM CDT 04/11/2025 11:48 AM CDT Julienne Ramon MD LAB POCT O RDERABLES - DEVICE Final Result Performing Organization Address [facility] de Phone Number [facility] [place] [address] * Prepare platelets: 1 Units (04/11/2025 11:10 AM CDT) [facility] Product code [id number] Unit Number [id number] [facility] Product Blood Type OPOS [facility] Dispense Status PRESUMED TRANSFUSED [facility] Blood Venous blood specimen / Unknown 04/11/2025 11:10 AM CDT 04/11/2025 11:09 AM CDT Narrative [facility] - 04/12/2025 4:03 AM CDT Are special requirements needed? (all products are leukoreduced)->No Date required:-20250411 PLT # of Units:-1-Units Reasons:-Bleeding/pre-op with platelet dysfunction} Julienne Ramon MD BLOOD BANK PRODUCT ORDERABLES Final Result Performing Organization Address [facility] Co de Phone Number [facility] [address] * Prepare RBC: 1 Units (04/11/2025 11:09 AM CDT) Product code [id number] Unit Number [id number] [facility] Product Blood Type APOS [facility] Dispense Status PRESUMED TRANSFUSED [facility] Blood 04/11/2025 11:0 9 AM CDT 04/11/2025 11:08 AM CDT Narrative [facility] - 04/12/2025 4:03 AM CDT Are special requirements needed? (All products are leukoreduced and CMV- safe)- >No Date required:-20250411 LRRBC # of [id number] Reasons:-Active bleeding, Hgb <8 g/dL} Julienne Ramon MD BLOOD BANK PRODUCT ORDERABLES Final Result Performing Organization Address [facility] [place] [address] * Prepare RBC: 1 Units (04/11/2025 8:12 AM CDT) Product code [id number] Unit Number [id number] [facility] Product Blood Type APOS [facility] Dispense Status PRESUMED TRANSFUSED [facility] Blood 04/11/2025 8:12 AM CDT 04/11/2025 8:12 AM CDT Narrative [facility] - 04/12/2025 12:55 AM CDT Are special requirements needed? (All products are leukoreduced and CMV- safe)- >No Date required:-20250411 LRRBC # of [id number] Reasons:-Hgb <7 g/dL} Julienne Ramon MD BLOOD BANK PRODUCT ORDERABLES Final Result Performing Organization Address City/[facility]/[place] [address] * POCT glucose (04/11/2025 7:48 AM CDT) Pathologist [facility] Glucose, POC 96 70 - 199 mg/dL Blood 04/11/2025 7:48 AM CDT 04/11/2025 7:48 AM CDT us Julienne Ramon MD LAB POCT O RDERABLES - DEVICE Final Result Performing Organization Address City/[facility]/ZIP Co de Phone Number [facility] [place] [address] * (ABNORMAL) CBC without differential (04/11/2025 5:40 AM CDT) [facility] WBC 4.52 3.80 - 9.90 K/cumm Hgb 6.6(L) 11.9 - 15.5 g/dL [facility] Hct 20.2(L) 35.6 - 45.5 % [facility] Plt 344 150 - 400 K/cumm [facility] MPV 9.5 9.1 - 12.3 fL [facility] RBC 2.18(L) 3.90 - 5.20 M/cumm [facility] MCV 92.7 81.3 - 96.4 fL [facility] MCH 30.3 27.1 - 33.3 pg [facility] MCHC 32.7 32.3 - 35.7 g/dL [facility] RDW CV 16.9(H) 11.1 - 14.9 % [facility] RDW SD 54.7(H) 35.7 - 48.1 fL [facility] NRBC abs 0.00 0.00 - 0.01 K/cumm [facility] Blood 04/11/2025 5:40 AM CDT 04/11/2025 6:40 AM CDT us Jeri Crawford MD LAB BLOOD ORDERABLES Elena l Result [facility] Department [place] [address] * (ABNORMAL) CBC without differential (04/10/2025 9:18 PM CDT) Pathologist [facility] WBC 5.03 3.80 - 9.90 K/cumm Hgb 7.0(L) 11.9 - 15.5 g/dL [facility] Hct 21.7(L) 35.6 - 45.5 % [facility] Plt 361 150 - 400 K/cumm [facility] MPV 9.4 9.1 - 12.3 fL [facility] RBC 2.32(L) 3.90 - 5.20 M/cumm [facility] MCV 93.5 81.3 - 96.4 fL [facility] MCH 30.2 27.1 - 33.3 pg [facility] MCHC 32.3 32.3 - 35.7 g/dL [facility] RDW CV 16.8(H) 11.1 - 14.9 % [facility] RDW SD 55.8(H) 35.7 - 48.1 fL [facility] NRBC abs 0.00 0.00 - 0.01 K/cumm [facility] Blood 04/10/2025 9:18 PM CDT 04/10/2025 9:51 PM CDT us Julienne Ramon MD LAB BLOOD ORDERABLES Final Result [facility] Department [place] [address] * POCT glucose (04/10/2025 7:52 PM CDT) Pathologist [facility] Glucose, POC 175 70 - 199 mg/dL Blood 04/10/2025 7:52 PM CDT 04/10/2025 7:52 PM CDT Julienne Ramon MD LAB POCT O RDERABLES - DEVICE Final Result Performing Organization Address [facility] de Phone Number [facility] Department [place] [address] * (ABNORMAL) eGFR (04/10/2025 5:50 PM CDT) [facility] eGFR 59(L) >=60 mL/min/1. 73 m2 Comment: Interpretive Data Reference Interval Normal >/= 90 mL/min/1.73m2 Mildly decreased* 60 - 89 mL/min/1.73m2 Mildly to moderately decreased 45 - 59 mL/min/1.73m2 Moderately to severely decreased 30 - 44 mL/min/1.73m2 Severely decreased 15 - 29 mL/min/1.73m2 Kidney Failure < 15 mL/min/1.73m2 *Relative to young adult level Estimated glomerular filtration rate is determined by the 2020 CKD-EPI equation recommended by the National Kidney Foundation (A Unifying Approach to GFR Estimation: Recommendations of the NKF-ASK Task Force on Reassessing the Inclusion of Race in Diagnosing Kidney Disease, JASN 2020). The CKD-EPI equation should not be used for patients with unstable renal function and has not been validated in children and those over 70. Current interpretive data was last reviewed 2021. Blood 04/10/2025 5:50 PM CDT 04/10/2025 6:50 PM CDT us Jeri Crawford MD LAB BLOOD ORDERABLES Elena l Result Performing Organization Address [facility] Co de Phone Number [facility] Department [place] [address] * (ABNORMAL) CBC without differential (04/10/2025 5:50 PM CDT) [facility] WBC 5.44 3.80 - 9.90 K/cumm Hgb 7.7(L) 11.9 - 15.5 g/dL [facility] Hct 23.6(L) 35.6 - 45.5 % [facility] Plt 391 150 - 400 K/cumm [facility] MPV 9.4 9.1 - 12.3 fL [facility] RBC 2.56(L) 3.90 - 5.20 M/cumm [facility] MCV 92.2 81.3 - 96.4 fL [facility] MCH 30.1 27.1 - 33.3 pg [facility] MCHC 32.6 32.3 - 35.7 g/dL [facility] RDW CV 16.7(H) 11.1 - 14.9 % [facility] RDW SD 54.7(H) 35.7 - 48.1 fL [facility] NRBC abs 0.00 0.00 - 0.01 K/cumm [facility] Blood 04/10/2025 5:50 PM CDT 04/10/2025 6:50 PM CDT Julienne Ramon MD LAB BLOOD ORDERABLES Final Result [facility] Department [place] [address] * Phosphorus (04/10/2025 5:50 PM CDT) Pathologist [facility] Phosphorus, pl 2.6 2.3 - 4.5 mg/dL Blood 04/10/2025 5:50 PM CDT 04/10/2025 6:50 PM CDT us Jeri Crawford MD LAB BLOOD ORDERABLES Elena l Result [facility] Department [place] [address] * Magnesium (04/10/2025 5:50 PM CDT) Magnesium 1.9 1.4 - 2.5 mg/dL Blood 04/10/2025 5:50 PM CDT 04/10/2025 6:50 PM CDT Jeri Crawford MD LAB BLOOD ORDERABLES Elena l Result [facility] [place] [address] * (ABNORMAL) Basic metabolic panel (04/10/2025 5:50 PM CDT) Pathologist [facility] Sodium 138 135 - 145 mmol/L Potassium, pl 4.8 3.3 - 4.9 mmol/L [facility] Chloride 105 97 - 110 mmol/L [facility] CO2 27 22 - 32 mmol/L [facility] Anion gap 6 2 - 15 mmol/L [facility] BUN 17 6 - 25 mg/dL [facility] Creatinine 1.01 0.60 - 1.10 mg/dL [facility] Glucose 163 70 - 199 mg/dL [facility] Comment: Interpretive Data Fasting glucose >/= 126 mg/dl is diagnostic for diabetes. Fasting is defined as no caloric intake for at least 8 hours. Fasting glucose between 100 mg/dl to 125 mg/dl is diagnostic of prediabetes. In a patient with classic symptoms of hyperglycemia or hyperglycemic crisis, a random glucose >/= 200 mg/dl is diagnostic for diabetes. In the absence of unequivocal hyperglycemia, results should be confirmed by repeat testing. The classification and Diagnosis of Diabetes Diabetes Care 202; 46: S19-S40. Current interpretive data was last revised 2022. Calcium 8.3(L) 8.5 - 10.3 mg/dL [facility] Blood 04/10/2025 5:50 PM CDT 04/10/2025 6:50 PM CDT Jeri Crawford MD LAB BLOOD ORDERABLES Elena l Result Performing Organization Address [facility]/ZIP Co de Phone Number [facility] Department [place] [employer] [place] [address] * POCT glucose (04/10/2025 5:20 PM CDT) Glucose, POC 157 70 - 199 mg/dL Blood 04/10/2025 5:20 PM CDT 04/10/2025 5:20 PM CDT Julienne Ramon MD LAB POCT O RDERABLES - DEVICE Final Result [facility] Department [place] [address] * Flexible Sigmoidoscopy (04/10/2025 1:45 PM CDT) Anatomical Region Laterality Modality Other Narrative Procedure Note Gricelda Suazo MD - 04/10/2025 1:45 PM CDT [facility] Patient Name: Gregg Crocker Procedure Date: 04/10/2025 1:45 PM Date of : 1950 Admit Type: Inpatient Age: 74 Gender: Female Attending MD: Gricelda Suazo M.D. Room: [facility] ENDOSCOPY Note Status: Finalized Procedure: Flexible Sigmoidoscopy Indications: Hematochezia Referring MD: Rosa Galvan M.D. Providers: Gricelda Suazo M.D., Lobito Melo M.D. Medicines: Monitored Anesthesia Care Complications: No immediate complications. Estimated Blood Loss: Estimated blood loss: none. Procedure: Pre-Anesthesia Assessment: - Immediately prior to administration ofmedications, the patient was re-assessed for adequacy to receive sedatives. The benefits, risks, and alternatives to theprocedure and sedation were discussed and informed consentwas obtained. The [facility] HQ [id number] endoscope was introduced through the anus and advanced to the the rectum. The flexible sigmoidoscopy was accomplished without difficulty. The patient tolerated the procedure well. The quality of the bowelpreparation was inadequate. Findings: The digital rectal exam findings include {skip}blood and clotsseen. Large amount of red blood and clots were found in the recto-sigmoid colon, incompletely removed (despite mutliple attempts using thescope and manually), limiting visualization Diffusely ulcerated, friable, mucosa with oozing was found in thedistal rectum. Coagulation for hemostasis using gold probe was performed.For hemostasis, hemostatic spray was deployed. Two sprays were applied. There was no bleeding at the end of the procedure. Impression: - Preparation of the colon was inadequate. - Blood and clots seen in recto-sigmoid colon. - Ulcerated, ooozing mucosa in the distal rectum. Treated with goldprobe. Hemostatic spray applied. - No specimens collected. Recommendation: - Return patient to [facility] for ongoing care. Bowel regimen. - Further plan per inpatient GI team Attending Participation: I was present and participated during the entire procedure, including non-otoole portions. Electronically signed by Gricelda Suazo MD Gricelda Suazo M.D. 04/10/2025 2:53:25 PM Number of Addenda: 0 Note Initiated On: 04/10/2025 1:45 PM us Gricelda Suazo MD ENDOSCOPY PROCEDURES Final Res ult * POCT glucose (04/10/2025 11:59 AM CDT) Glucose, POC 186 70 - 199 mg/dL Blood 04/10/2025 11:5 9 AM CDT 04/10/2025 11:59 AM CDT Julienne Ramon MD LAB POCT O RDERABLES - DEVICE Final Result [facility] Department [place] [address] * XR Abdomen Ap 1 Vw (04/10/2025 11:44 AM CDT) Anatomical Region Laterality Modality Body, Abdomen N/A Digital Radiogra phy 04/10/2025 2:07 PM CDT Impressions 04/10/2025 4:22 PM CDT Bowel gas pattern is within normal limits. Small right-sided pleural effusion. Embolization coils and vascular stent project over the right hemipelvis. Transcatheter aortic valve is in place. Dictated by: Chad Ontiveros M.D. The radiology attending physician has personally reviewed this study, and had reviewed and/or edited this written report and agrees with it. Electronically signed by: Jerson Woods M.D. Narrative 04/10/2025 4:22 PM CDT EXAMINATION: Abdomen, one view. HISTORY: Abdominal pain. COMPARISON: 04/09/2025 Procedure Note Jerson Woods MD - 04/10/2025 EXAMINATION: Abdomen, one view. HISTORY: Abdominal pain. COMPARISON: 04/09/2025 IMPRESSION: Bowel gas pattern is within normal limits. Small right-sided pleural effusion. Embolization coils and vascular stent project over the right hemipelvis. Transcatheter aortic valve is in place. Dictated by: Chad Ontiveros M.D. The radiology attending physician has personally reviewed this study, and had reviewed and/or edited this written report and agrees with it. Electronically signed by: Jerson Woods M.D. us Julienne Ramon MD IMG XR PRO CEDURES Final Result * (ABNORMAL) CBC without differential (04/10/2025 8:09 AM CDT) Pathologist [facility] WBC 4.81 3.80 - 9.90 K/cumm Hgb 8.3(L) 11.9 - 15.5 g/dL [facility] Hct 25.2(L) 35.6 - 45.5 % [facility] Plt 392 150 - 400 K/cumm [facility] MPV 9.5 9.1 - 12.3 fL [facility] RBC 2.75(L) 3.90 - 5.20 M/cumm [facility] MCV 91.6 81.3 - 96.4 fL [facility] MCH 30.2 27.1 - 33.3 pg [facility] MCHC 32.9 32.3 - 35.7 g/dL [facility] RDW CV 16.3(H) 11.1 - 14.9 % [facility] RDW SD 52.9(H) 35.7 - 48.1 fL [facility] NRBC abs 0.00 0.00 - 0.01 K/cumm [facility] Blood 04/10/2025 8:09 AM CDT 04/10/2025 8:25 AM CDT us Batool Jackson MD LAB BLOOD ORDERABLES Final R esult [facility] Department [place] [address] * Type and screen (04/10/2025 8:09 AM CDT) Pathologist [facility] ABO Rh A Positive Salazar, indirect Negative [facility] Blood 04/10/2025 8:09 AM CDT 04/10/2025 8:33 AM CDT Narrative [facility] - 04/10/2025 9:42 AM CDT Has the patient had Daratumumab or Isatuximab in the past 6 months?->Unknown us Huber Estrada MD LAB BLOOD BANK TEST ORDER JACQUELINE Final Result Performing Organization Address [facility] [place] [address] * (ABNORMAL) POCT glucose (04/10/2025 8:07 AM CDT) [facility] Glucose, POC 201(H) 70 - 199 mg/dL Blood 04/10/2025 8:07 AM CDT 04/10/2025 8:07 AM CDT us Julienne Ramon MD LAB POCT O RDERABLES - DEVICE Final Result Performing Organization Address [facility] Co de Phone Number [facility] [place] [address] * Transfuse RBC (04/10/2025 8:03 AM CDT) Blood us Huber Estrada MD BLOOD TRANSFUSION ORDERAB LES Final Result Performing Organization Address [facility] de Phone [place] [address] * Prepare RBC: 1 Units (04/10/2025 3:38 AM CDT) [facility] Product code [id number] Unit Number [id number] [facility] Product Blood Type APOS [facility] Dispense Status PRESUMED TRANSFUSED [facility] Blood 04/10/2025 3:38 AM CDT 04/10/2025 3:38 AM CDT Narrative [facility] - 04/10/2025 8:01 PM CDT Are special requirements needed? (All products are leukoreduced and CMV- safe)- >No Date required:-[id number] LRRBC # of [id number]-1-[id number] Reasons:-Hgb <7 g/dL} us Huber Estrada MD BLOOD BANK PRODUCT ORDERA BLES Final Result [facility] Department [place] [employer] [place] [address] * (ABNORMAL) CBC without differential (04/10/2025 2:05 AM CDT) WBC 4.78 3.80 - 9.90 K/cumm Hgb 6.7(L) 11.9 - 15.5 g/dL [facility] Hct 20.9(L) 35.6 - 45.5 % [facility] Plt 382 150 - 400 K/cumm [facility] MPV 9.7 9.1 - 12.3 fL [facility] RBC 2.22(L) 3.90 - 5.20 M/cumm [facility] MCV 94.1 81.3 - 96.4 fL [facility] MCH 30.2 27.1 - 33.3 pg [facility] MCHC 32.1(L) 32.3 - 35.7 g/dL [facility] RDW CV 16.1(H) 11.1 - 14.9 % [facility] RDW SD 53.9(H) 35.7 - 48.1 fL [facility] NRBC abs 0.00 0.00 - 0.01 K/cumm [facility] Blood 04/10/2025 2:05 AM CDT 04/10/2025 3:21 AM CDT us Batool Jackson MD LAB BLOOD ORDERABLES Final R esult [facility] [employer] [place] [address] * Potassium, whole blood (04/09/2025 9:57 PM CDT) Potassium, bld 4.5 3.3 - 4.9 mmol/L Blood 04/09/2025 9:57 PM CDT 04/09/2025 10:31 PM CDT Julienne Ramon MD LAB BLOOD ORDERABLES Final Result [facility] [place] [address] * (ABNORMAL) eGFR (04/09/2025 9:57 PM CDT) eGFR 46(L) >=60 mL/min/1. 73 m2 Comment: Interpretive Data Reference Interval Normal >/= 90 mL/min/1.73m2 Mildly decreased* 60 - 89 mL/min/1.73m2 Mildly to moderately decreased 45 - 59 mL/min/1.73m2 Moderately to severely decreased 30 - 44 mL/min/1.73m2 Severely decreased 15 - 29 mL/min/1.73m2 Kidney Failure < 15 mL/min/1.73m2 *Relative to young adult level Estimated glomerular filtration rate is determined by the 2020 CKD-EPI equation recommended by the National Kidney Foundation (A Unifying Approach to GFR Estimation: Recommendations of the NKF-ASK Task Force on Reassessing the Inclusion of Race in Diagnosing Kidney Disease, JASN 2020). The CKD-EPI equation should not be used for patients with unstable renal function and has not been validated in children and those over 70. Current interpretive data was last reviewed 2021. Blood 04/09/2025 9:57 PM CDT 04/09/2025 10:39 PM CDT us Julienne Ramon MD LAB BLOOD ORDERABLES Final Result [facility] [place] [address] * (ABNORMAL) Protime-INR (04/09/2025 9:57 PM CDT) PT 13.9(H) 9.7 - 13.0 sec INR 1.28(H) 0.90 - 1.20 [facility] Comment: Interpretive data Oral anticoagulant therapeutic ranges: Venous thromboembolism prophylaxis or treatment: 2.0-3.0 CARDIOLOGY Standard range: 2.0-3.0 High-intensity range: 2.5-3.5 Refer to indication-specific guidelines for appropriate target ranges for prosthetic heart valve replacement. Current interpretive data was last revised on 2019. Blood 04/09/2025 9:57 PM CDT 04/09/2025 10:36 PM CDT us Julienne Ramon MD LAB BLOOD ORDERABLES Final Result [facility] Department [place] [address] * (ABNORMAL) CBC without differential (04/09/2025 9:57 PM CDT) WBC 5.76 3.80 - 9.90 K/cumm Hgb 7.1(L) 11.9 - 15.5 g/dL [facility] Hct 22.3(L) 35.6 - 45.5 % [facility] Plt 439(H) 150 - 400 K/cumm [facility] MPV 9.7 9.1 - 12.3 fL [facility] RBC 2.40(L) 3.90 - 5.20 M/cumm [facility] MCV 92.9 81.3 - 96.4 fL [facility] MCH 29.6 27.1 - 33.3 pg [facility] MCHC 31.8(L) 32.3 - 35.7 g/dL [facility] RDW CV 16.0(H) 11.1 - 14.9 % [facility] RDW SD 53.6(H) 35.7 - 48.1 fL [facility] NRBC abs 0.00 0.00 - 0.01 K/cumm [facility] Blood 04/09/2025 9:57 PM CDT 04/09/2025 10:39 PM CDT us Batool Jackson MD LAB BLOOD ORDERABLES Final R esult [facility] Department [place] [address] * (ABNORMAL) Basic metabolic panel (04/09/2025 9:57 PM CDT) [facility] Sodium 136 135 - 145 mmol/L Potassium, pl 4.5 3.3 - 4.9 mmol/L [facility] Chloride 102 97 - 110 mmol/L [facility] CO2 27 22 - 32 mmol/L [facility] Anion gap 7 2 - 15 mmol/L [facility] BUN 26(H) 6 - 25 mg/dL [facility] Creatinine 1.25(H) 0.60 - 1.10 mg/dL [facility] Glucose 211(H) 70 - 199 mg/dL [facility] Comment: Interpretive Data Fasting glucose >/= 126 mg/dl is diagnostic for diabetes. Fasting is defined as no caloric intake for at least 8 hours. Fasting glucose between 100 mg/dl to 125 mg/dl is diagnostic of prediabetes. In a patient with classic symptoms of hyperglycemia or hyperglycemic crisis, a random glucose >/= 200 mg/dl is diagnostic for diabetes. In the absence of unequivocal hyperglycemia, results should be confirmed by repeat testing. The classification and Diagnosis of Diabetes Diabetes Care 202; 46: S19-S40. Current interpretive data was last revised 2022. Calcium 8.3(L) 8.5 - 10.3 mg/dL [facility] Blood 04/09/2025 9:57 PM CDT 04/09/2025 10:39 PM CDT us Julienne Ramon MD LAB BLOOD ORDERABLES Final Result [facility] Department [place] [address] * (ABNORMAL) POCT glucose (04/09/2025 9:20 PM CDT) [facility] Glucose, POC 250(H) 70 - 199 mg/dL Blood 04/09/2025 9:20 PM CDT 04/09/2025 9:20 PM CDT Julienne Ramon MD LAB POCT O RDERABLES - DEVICE Final Result Performing Organization Address City/[facility]/ZIP Co de Phone Number [facility] Department [place] [address] * (ABNORMAL) POCT glucose (04/09/2025 5:15 PM CDT) [facility] Glucose, POC 225(H) 70 - 199 mg/dL Blood 04/09/2025 5:15 PM CDT 04/09/2025 5:15 PM CDT Julienne Ramon MD LAB POCT O RDERABLES - DEVICE Final Result Performing Organization Address City/[facility]/ZIP Co de Phone Number [facility] Department [place] [address] * (ABNORMAL) CBC without differential (04/09/2025 2:30 PM CDT) [facility] WBC 7.00 3.80 - 9.90 K/cumm Hgb 7.6(L) 11.9 - 15.5 g/dL [facility] Hct 23.5(L) 35.6 - 45.5 % [facility] Plt 438(H) 150 - 400 K/cumm [facility] MPV 9.9 9.1 - 12.3 fL [facility] RBC 2.48(L) 3.90 - 5.20 M/cumm [facility] MCV 94.8 81.3 - 96.4 fL [facility] MCH 30.6 27.1 - 33.3 pg [facility] MCHC 32.3 32.3 - 35.7 g/dL [facility] RDW CV 15.9(H) 11.1 - 14.9 % [facility] RDW SD 54.6(H) 35.7 - 48.1 fL [facility] NRBC abs 0.00 0.00 - 0.01 K/cumm [facility] Blood 04/09/2025 2:30 PM CDT 04/09/2025 4:44 PM CDT Batool Jackson MD LAB BLOOD ORDERABLES Final R esult [facility] Department [place] [address] * XR Abdomen Ap 1 Vw (04/09/2025 12:21 PM CDT) Anatomical Region Laterality Modality Body, Abdomen N/A Computed Radiogr aphy 04/09/2025 1:07 PM CDT Impressions 04/09/2025 1:29 PM CDT Interpretation of this examination is partially limited by patient body habitus. Stool is again noted within the rectum. Bowel gas pattern is normal. Splenic artery atherosclerotic calcifications are noted. Known right retroperitoneal hematoma is better evaluated on prior CT. Small right pleural effusion. Dictated by: Travis Rosa MD PHD The radiology attending physician has personally reviewed this study, and had reviewed and/or edited this written report and agrees with it. Electronically signed by: Vandana Garg M.D. Narrative 04/09/2025 1:29 PM CDT EXAMINATION: Abdomen, one view. HISTORY: 74-year-old with abdominal pain. COMPARISON: CT dated 04/07/2025. Procedure Note Vandana Garg MD - 04/09/2025 EXAMINATION: Abdomen, one view. HISTORY: 74-year-old with abdominal pain. COMPARISON: CT dated 04/07/2025. IMPRESSION: Interpretation of this examination is partially limited by patient body habitus. Stool is again noted within the rectum. Bowel gas pattern is normal. Splenic artery atherosclerotic calcifications are noted. Known right retroperitoneal hematoma is better evaluated on prior CT. Small right pleural effusion. Dictated by: Travis Rosa MD PHD The radiology attending physician has personally reviewed this study, and had reviewed and/or edited this written report and agrees with it. Electronically signed by: Vandana Garg M.D. us Julienne Ramon MD IMG XR PRO CEDURES Final Result * (ABNORMAL) POCT glucose (04/09/2025 11:18 AM CDT) [facility] Glucose, POC 268(H) 70 - 199 mg/dL Blood 04/09/2025 11:1 8 AM CDT 04/09/2025 11:18 AM CDT us Julienne Ramon MD LAB POCT O RDERABLES - DEVICE Final Result [facility] Department [place] [address] * (ABNORMAL) CBC without differential (04/09/2025 8:17 AM CDT) [facility] WBC 7.80 3.80 - 9.90 K/cumm Hgb 8.1(L) 11.9 - 15.5 g/dL [facility] Hct 24.6(L) 35.6 - 45.5 % [facility] Plt 449(H) 150 - 400 K/cumm [facility] MPV 9.8 9.1 - 12.3 fL [facility] RBC 2.66(L) 3.90 - 5.20 M/cumm [facility] MCV 92.5 81.3 - 96.4 fL [facility] MCH 30.5 27.1 - 33.3 pg [facility] MCHC 32.9 32.3 - 35.7 g/dL [facility] RDW CV 15.9(H) 11.1 - 14.9 % [facility] RDW SD 51.9(H) 35.7 - 48.1 fL [facility] NRBC abs 0.00 0.00 - 0.01 K/cumm [facility] Blood 04/09/2025 8:17 AM CDT 04/09/2025 9:14 AM CDT us Batool Jackson MD LAB BLOOD ORDERABLES Final R esult Performing Organization Address [facility] Co de Phone Number [facility] Department [place] [address] * (ABNORMAL) POCT glucose (04/09/2025 7:32 AM CDT) [facility] Glucose, POC 281(H) 70 - 199 mg/dL Blood 04/09/2025 7:32 AM CDT 04/09/2025 7:32 AM CDT Julienne Ramon MD LAB POCT O RDERABLES - DEVICE Final Result Performing Organization Address City/[facility] Co de Phone Number [facility] Department [place] [address] * (ABNORMAL) CBC without differential (04/09/2025 1:52 AM CDT) [facility] WBC 8.29 3.80 - 9.90 K/cumm Hgb 7.5(L) 11.9 - 15.5 g/dL [facility] Hct 23.7(L) 35.6 - 45.5 % [facility] Plt 384 150 - 400 K/cumm [facility] MPV 9.7 9.1 - 12.3 fL [facility] RBC 2.54(L) 3.90 - 5.20 M/cumm [facility] MCV 93.3 81.3 - 96.4 fL [facility] MCH 29.5 27.1 - 33.3 pg [facility] MCHC 31.6(L) 32.3 - 35.7 g/dL [facility] RDW CV 15.8(H) 11.1 - 14.9 % [facility] RDW SD 52.4(H) 35.7 - 48.1 fL [facility] NRBC abs 0.00 0.00 - 0.01 K/cumm [facility] Blood 04/09/2025 1:52 AM CDT 04/09/2025 2:51 AM CDT Batool Jackson MD LAB BLOOD ORDERABLES Final R esult Performing Organization Address City/[facility]/ZIP Co de Phone Number [facility] Department [place] [address] * (ABNORMAL) CBC without differential (04/08/2025 8:45 PM CDT) [facility] WBC 10.57(H) 3.80 - 9.90 K/cumm Hgb 8.3(L) 11.9 - 15.5 g/dL [facility] Hct 25.6(L) 35.6 - 45.5 % [facility] Plt 430(H) 150 - 400 K/cumm [facility] MPV 9.7 9.1 - 12.3 fL [facility] RBC 2.76(L) 3.90 - 5.20 M/cumm [facility] MCV 92.8 81.3 - 96.4 fL [facility] MCH 30.1 27.1 - 33.3 pg [facility] MCHC 32.4 32.3 - 35.7 g/dL [facility] RDW CV 15.9(H) 11.1 - 14.9 % [facility] RDW SD 51.9(H) 35.7 - 48.1 fL [facility] NRBC abs 0.00 0.00 - 0.01 K/cumm [facility] Blood 04/08/2025 8:45 PM CDT 04/08/2025 9:51 PM CDT Batool Jackson MD LAB BLOOD ORDERABLES Final R esult [facility] [place] [address] * (ABNORMAL) POCT glucose (04/08/2025 8:04 PM CDT) [facility] Glucose, POC 300(H) 70 - 199 mg/dL Blood 04/08/2025 8:04 PM CDT 04/08/2025 8:04 PM CDT Jeri Crawford MD LAB POCT ORDERABLES - DEV ICE Final Result Performing Organization Address [facility]/ZIP Co de Phone Number [facility] Department [place] [address] * (ABNORMAL) POCT glucose (04/08/2025 5:17 PM CDT) [facility] Glucose, POC 270(H) 70 - 199 mg/dL Blood 04/08/2025 5:17 PM CDT 04/08/2025 5:17 PM CDT Jeri Crawford MD LAB POCT ORDERABLES - DEV ICE Final Result Performing Organization Address [facility] de Phone Number [facility] Department [place] [address] * (ABNORMAL) CBC without differential (04/08/2025 3:29 PM CDT) [facility] WBC 12.92(H) 3.80 - 9.90 K/cumm Hgb 8.5(L) 11.9 - 15.5 g/dL [facility] Hct 26.6(L) 35.6 - 45.5 % [facility] Plt 475(H) 150 - 400 K/cumm [facility] MPV 9.8 9.1 - 12.3 fL [facility] RBC 2.87(L) 3.90 - 5.20 M/cumm [facility] MCV 92.7 81.3 - 96.4 fL [facility] MCH 29.6 27.1 - 33.3 pg [facility] MCHC 32.0(L) 32.3 - 35.7 g/dL [facility] RDW CV 15.8(H) 11.1 - 14.9 % [facility] RDW SD 51.9(H) 35.7 - 48.1 fL [facility] NRBC abs 0.00 0.00 - 0.01 K/cumm [facility] Blood 04/08/2025 3:29 PM CDT 04/08/2025 4:35 PM CDT us Batool Jackson MD LAB BLOOD ORDERABLES Final R esult [facility] Department [place] [address] * (ABNORMAL) POCT glucose (04/08/2025 11:39 AM CDT) Pathologist [facility] Glucose, POC 290(H) 70 - 199 mg/dL Blood 04/08/2025 11:3 9 AM CDT 04/08/2025 11:39 AM CDT Jeri Crawford MD LAB POCT ORDERABLES - DEV ICE Final Result Performing Organization Address City/[facility]/ZIP Co de Phone Number [facility] Department [place] [employer] [place] [address] * (ABNORMAL) CBC without differential (04/08/2025 8:44 AM CDT) [facility] WBC 14.19(H) 3.80 - 9.90 K/cumm Hgb 9.6(L) 11.9 - 15.5 g/dL [facility] Hct 29.0(L) 35.6 - 45.5 % [facility] Plt 462(H) 150 - 400 K/cumm [facility] MPV 9.7 9.1 - 12.3 fL [facility] RBC 3.18(L) 3.90 - 5.20 M/cumm [facility] MCV 91.2 81.3 - 96.4 fL [facility] MCH 30.2 27.1 - 33.3 pg [facility] MCHC 33.1 32.3 - 35.7 g/dL [facility] RDW CV 15.6(H) 11.1 - 14.9 % [facility] RDW SD 51.0(H) 35.7 - 48.1 fL [facility] NRBC abs 0.00 0.00 - 0.01 K/cumm [facility] Blood 04/08/2025 8:44 AM CDT 04/08/2025 9:41 AM CDT us Batool Jackson MD LAB BLOOD ORDERABLES Final R esult [facility] Department [place] [address] * (ABNORMAL) POCT glucose (04/08/2025 8:01 AM CDT) [facility] Glucose, POC 321(H) 70 - 199 mg/dL Blood 04/08/2025 8:01 AM CDT 04/08/2025 8:01 AM CDT us Jeri Crawford MD LAB POCT ORDERABLES - DEV ICE Final Result [facility] Department [place] [address] * (ABNORMAL) CBC without differential (04/08/2025 5:04 AM CDT) [facility] WBC 13.16(H) 3.80 - 9.90 K/cumm Hgb 9.4(L) 11.9 - 15.5 g/dL [facility] Hct 29.1(L) 35.6 - 45.5 % [facility] Plt 463(H) 150 - 400 K/cumm [facility] MPV 9.7 9.1 - 12.3 fL [facility] RBC 3.13(L) 3.90 - 5.20 M/cumm [facility] MCV 93.0 81.3 - 96.4 fL [facility] MCH 30.0 27.1 - 33.3 pg [facility] MCHC 32.3 32.3 - 35.7 g/dL [facility] RDW CV 15.8(H) 11.1 - 14.9 % [facility] RDW SD 51.8(H) 35.7 - 48.1 fL [facility] NRBC abs 0.00 0.00 - 0.01 K/cumm [facility] Blood 04/08/2025 5:04 AM CDT 04/08/2025 5:39 AM CDT Jeri Crawford MD LAB BLOOD ORDERABLES Elena l Result Performing Organization Address [facility] Co de Phone Number [facility] Department [place] [address] * Lactate (04/08/2025 2:33 AM CDT) Pathologist [facility] Lactate 1.4 0.7 - 2.0 mmol/L Blood 04/08/2025 2:33 AM CDT 04/08/2025 2:59 AM CDT Jeri Crawford MD LAB BLOOD ORDERABLES Elena l Result Performing Organization Address [facility] de Phone Number [facility] Department [place] [address] * (ABNORMAL) eGFR (04/08/2025 2:33 AM CDT) eGFR 57(L) >=60 mL/min/1. 73 m2 Comment: Interpretive Data Reference Interval Normal >/= 90 mL/min/1.73m2 Mildly decreased* 60 - 89 mL/min/1.73m2 Mildly to moderately decreased 45 - 59 mL/min/1.73m2 Moderately to severely decreased 30 - 44 mL/min/1.73m2 Severely decreased 15 - 29 mL/min/1.73m2 Kidney Failure < 15 mL/min/1.73m2 *Relative to young adult level Estimated glomerular filtration rate is determined by the 2020 CKD-EPI equation recommended by the National Kidney Foundation (A Unifying Approach to GFR Estimation: Recommendations of the NKF-ASK Task Force on Reassessing the Inclusion of Race in Diagnosing Kidney Disease, JASN 202). The CKD-EPI equation should not be used for patients with unstable renal function and has not been validated in children and those over 70. Current interpretive data was last reviewed 2021. Blood 04/08/2025 2:33 AM CDT 04/08/2025 2:59 AM CDT us Jeri Crawford MD LAB BLOOD ORDERABLES Elena lau Result [facility] Department [place] [address] * (ABNORMAL) Differential, auto (04/08/2025 2:33 AM CDT) Pathologist [facility] Neutrophil abs 8.55(H) 1.50 - 6.50 K/cumm Imm gran abs 0.15(H) 0.00 - 0.10 K/cumm [facility] Lymphocyte abs 0.94 0.80 - 3.30 K/cumm [facility] Monocyte abs 0.79 0.20 - 0.80 K/cumm [facility] Eosinophil abs 0.08 0.00 - 0.50 K/cumm [facility] Basophil abs 0.05 0.00 - 0.10 K/cumm [facility] Neutrophil pct 80.9 % [facility] Comment: Interpretive Data Percent cell count reference ranges are not reported, since discordance with absolute values may lead to misinterpretation of CBC data. Current Interpretive Data was last revised on 2018. Imm gran pct 1.4 % [facility] Comment: Interpretive Data Percent cell count reference ranges are not reported, since discordance with absolute values may lead to misinterpretation of CBC data. Current Interpretive Data was last revised on 2018. Lymphocyte pct 8.9 % [facility] Comment: Interpretive Data Percent cell count reference ranges are not reported, since discordance with absolute values may lead to misinterpretation of CBC data. Current Interpretive Data was last revised on 2018. Monocyte pct 7.5 % [facility] Comment: Interpretive Data Percent cell count reference ranges are not reported, since discordance with absolute values may lead to misinterpretation of CBC data. Current Interpretive Data was last revised on 2018. Eosinophil pct 0.8 % [facility] Comment: Interpretive Data Percent cell count reference ranges are not reported, since discordance with absolute values may lead to misinterpretation of CBC data. Current Interpretive Data was last revised on 2018. Basophil pct 0.5 % [facility] Comment: Interpretive Data Percent cell count reference ranges are not reported, since discordance with absolute values may lead to misinterpretation of CBC data. Current Interpretive Data was last revised on 2018. Blood 04/08/2025 2:33 AM CDT 04/08/2025 2:58 AM CDT us Jeri Crawford MD LAB BLOOD ORDERABLES Elena lau Result [facility] Department [place] [address] * (ABNORMAL) CBC with auto differential (04/08/2025 2:33 AM CDT) WBC 10.56(H) 3.80 - 9.90 K/cumm Hgb 9.9(L) 11.9 - 15.5 g/dL [facility] Hct 30.0(L) 35.6 - 45.5 % [facility] Plt 457(H) 150 - 400 K/cumm [facility] MPV 9.7 9.1 - 12.3 fL [facility] RBC 3.30(L) 3.90 - 5.20 M/cumm [facility] MCV 90.9 81.3 - 96.4 fL [facility] MCH 30.0 27.1 - 33.3 pg [facility] MCHC 33.0 32.3 - 35.7 g/dL [facility] RDW CV 15.5(H) 11.1 - 14.9 % [facility] RDW SD 50.1(H) 35.7 - 48.1 fL [facility] NRBC abs 0.00 0.00 - 0.01 K/cumm [facility] Blood 04/08/2025 2:33 AM CDT 04/08/2025 2:58 AM CDT Jeri Crawford MD LAB BLOOD ORDERABLES Elena l Result Performing Organization Address [facility] Co de Phone Number [facility] [place] [address] * aPTT (04/08/2025 2:33 AM CDT) aPTT 32 28 - 38 sec Comment: Interpretive Data Heparin therapeutic range: 66.0 - 100.0 seconds. Range based on correlation with therapeutic heparin activity range of 0.3 - 0.7 Units/mL. Current interpretive data was last revised on 2023. Blood 04/08/2025 2:33 AM CDT 04/08/2025 3:06 AM CDT Jeri Crawford MD LAB BLOOD ORDERABLES Elena l Result Performing Organization Address [facility] Co de Phone Number [facility] [employer] [place] [address] * (ABNORMAL) Protime-INR (04/08/2025 2:33 AM CDT) PT 15.4(H) 9.7 - 13.0 sec INR 1.42(H) 0.90 - 1.20 [facility] Comment: Interpretive data Oral anticoagulant therapeutic ranges: Venous thromboembolism prophylaxis or treatment: 2.0-3.0 CARDIOLOGY Standard range: 2.0-3.0 High-intensity range: 2.5-3.5 Refer to indication-specific guidelines for appropriate target ranges for prosthetic heart valve replacement. Current interpretive data was last revised on 2019. Blood 04/08/2025 2:33 AM CDT 04/08/2025 3:06 AM CDT Jeri Crawford MD LAB BLOOD ORDERABLES Elena l Result Performing Organization Address City/[facility] Co de Phone Number [facility] [place] [address] * Phosphorus (04/08/2025 2:33 AM CDT) Pathologist [facility] Phosphorus, pl 3.1 2.3 - 4.5 mg/dL Blood 04/08/2025 2:33 AM CDT 04/08/2025 2:59 AM CDT Jeri Crawford MD LAB BLOOD ORDERABLES Elena l Result Performing Organization Address [facility] Co de Phone Number [facility] [place] [address] * Magnesium (04/08/2025 2:33 AM CDT) [facility] Magnesium 1.8 1.4 - 2.5 mg/dL Blood 04/08/2025 2:33 AM CDT 04/08/2025 2:59 AM CDT Jeri Crawford MD LAB BLOOD ORDERABLES Elena l Result Performing Organization Address [facility] Co de Phone Number [facility] [place] [address] * (ABNORMAL) Basic metabolic panel (04/08/2025 2:33 AM CDT) Pathologist [facility] Sodium 136 135 - 145 mmol/L Potassium, pl 5.6(H) 3.3 - 4.9 mmol/L [facility] Chloride 103 97 - 110 mmol/L [facility] CO2 26 22 - 32 mmol/L [facility] Anion gap 7 2 - 15 mmol/L [facility] BUN 25 6 - 25 mg/dL [facility] Creatinine 1.04 0.60 - 1.10 mg/dL [facility] Glucose 274(H) 70 - 199 mg/dL [facility] Comment: Interpretive Data Fasting glucose >/= 126 mg/dl is diagnostic for diabetes. Fasting is defined as no caloric intake for at least 8 hours. Fasting glucose between 100 mg/dl to 125 mg/dl is diagnostic of prediabetes. In a patient with classic symptoms of hyperglycemia or hyperglycemic crisis, a random glucose >/= 200 mg/dl is diagnostic for diabetes. In the absence of unequivocal hyperglycemia, results should be confirmed by repeat testing. The classification and Diagnosis of Diabetes Diabetes Care 2021; 46: S19-S40. Current interpretive data was last revised 2022. Calcium 8.8 8.5 - 10.3 mg/dL [facility] Blood 04/08/2025 2:33 AM CDT 04/08/2025 2:59 AM CDT us Jeri Crawford MD LAB BLOOD ORDERABLES Elena lau Result [facility] Department [place] [address] * (ABNORMAL) CBC without differential (04/07/2025 8:28 PM CDT) WBC 11.22(H) 3.80 - 9.90 K/cumm Hgb 10.1(L) 11.9 - 15.5 g/dL [facility] Hct 31.2(L) 35.6 - 45.5 % [facility] Plt 396 150 - 400 K/cumm [facility] MPV 9.6 9.1 - 12.3 fL [facility] RBC 3.34(L) 3.90 - 5.20 M/cumm [facility] MCV 93.4 81.3 - 96.4 fL [facility] MCH 30.2 27.1 - 33.3 pg [facility] MCHC 32.4 32.3 - 35.7 g/dL [facility] RDW CV 15.7(H) 11.1 - 14.9 % [facility] RDW SD 52.0(H) 35.7 - 48.1 fL [facility] NRBC abs 0.00 0.00 - 0.01 K/cumm [facility] Blood 04/07/2025 8:28 PM CDT 04/07/2025 9:07 PM CDT us Batool Jackson MD LAB BLOOD ORDERABLES Final R esult [facility] Department [place] [address] * (ABNORMAL) POCT glucose (04/07/2025 8:12 PM CDT) Glucose, POC 309(H) 70 - 199 mg/dL Blood 04/07/2025 8:12 PM CDT 04/07/2025 8:12 PM CDT us Jeri Crawford MD LAB POCT ORDERABLES - DEV ICE Final Result Performing Organization Address City/[facility] Co de Phone Number [facility] Department [place] [address] * CT Abdomen Pelvis W WO Contrast (04/07/2025 7:17 PM CDT) Anatomical Region Laterality Modality Body N/A Computed Tomogra phy 04/07/2025 8:04 PM CDT Impressions 04/07/2025 9:02 PM CDT 1. No active gastrointestinal contrast extravasation. 2. Unchanged large right retroperitoneal hematoma without active contrast extravasation. Dictated by: Jadiel Garcia M.D. The radiology attending physician has personally reviewed this study, and had reviewed and/or edited this written report and agrees with it. Electronically signed by: Gordy Appiah MD, PHD Narrative 04/07/2025 9:02 PM CDT EXAMINATION: Computed tomography of the abdomen and pelvis with and without intravenous contrast HISTORY: Lower GI bleed, retroperitoneal hematoma TECHNIQUE: Transaxial computed tomographic images of the abdomen and pelvis were obtained with and without intravenous contrast according to the ischemic bowel/GI bleeding protocol after the uneventful administration of 93 mL Opti-Ray 350 intravenous contrast. COMPARISON: CT abdomen pelvis dated 03/28/2025 FINDINGS: Mild reticulation/atelectasis of the imaged lung bases. Small right and trace left pleural effusion. Partially imaged transcatheter aortic valve replacement. No pericardial effusion. 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 Left lateral section and caudate lobe hypertrophy. No suspicious hepatic lesion. Unchanged hepatic cyst in segment 2. Normal gallbladder. No biliary ductal dilatation. Normal pancreas, spleen, and adrenal glands. The kidneys enhance symmetrically. There is unchanged mild renal pelvis and calyceal dilatation on the right which is chronic. Multiple simple appearing renal cysts. The urinary bladder is normal-appearing. There is a large amount stool within the rectum. There is no gastrointestinal contrast extravasation. A large right retroperitoneal hematoma is unchanged in size measuring up to 23 cm craniocaudal on series 10 image 45. There is no active contrast extravasation. Normal caliber abdominal aorta with moderate calcific atherosclerosis. Right external iliac artery stent. Trace ascites. No pneumoperitoneum. Mild body wall edema/anasarca. No aggressive osseous lesion. Degenerative lumbar spine changes with grade 1 anterolisthesis of L4 on L5. Procedure Note Gordy Appiah MD PhD - 04/07/2025 EXAMINATION: Computed tomography of the abdomen and pelvis with and without intravenous contrast HISTORY: Lower GI bleed, retroperitoneal hematoma TECHNIQUE: Transaxial computed tomographic images of the abdomen and pelvis were obtained with and without intravenous contrast according to the ischemic bowel/GI bleeding protocol after the uneventful administration of 93 mL Opti-Ray 350 intravenous contrast. COMPARISON: CT abdomen pelvis dated 03/28/2025 FINDINGS: Mild reticulation/atelectasis of the imaged lung bases. Small right and trace left pleural effusion. Partially imaged transcatheter aortic valve replacement. No pericardial effusion. 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 Left lateral section and caudate lobe hypertrophy. No suspicious hepatic lesion. Unchanged hepatic cyst in segment 2. Normal gallbladder. No biliary ductal dilatation. Normal pancreas, spleen, and adrenal glands. The kidneys enhance symmetrically. There is unchanged mild renal pelvis and calyceal dilatation on the right which is chronic. Multiple simple appearing renal cysts. The urinary bladder is normal-appearing. There is a large amount stool within the rectum. There is no gastrointestinal contrast extravasation. A large right retroperitoneal hematoma is unchanged in size measuring up to 23 cm craniocaudal on series 10 image 45. There is no active contrast extravasation. Normal caliber abdominal aorta with moderate calcific atherosclerosis. Right external iliac artery stent. Trace ascites. No pneumoperitoneum. Mild body wall edema/anasarca. No aggressive osseous lesion. Degenerative lumbar spine changes with grade 1 anterolisthesis of L4 on L5. IMPRESSION: 1. No active gastrointestinal contrast extravasation. 2. Unchanged large right retroperitoneal hematoma without active contrast extravasation. Dictated by: Jadiel Garcia M.D. The radiology attending physician has personally reviewed this study, and had reviewed and/or edited this written report and agrees with it. Electronically signed by: Gordy Appiah MD, PHD Jeri Crawford MD IMG CT PROCEDURES Final R esult * (ABNORMAL) POCT glucose (04/07/2025 5:06 PM CDT) [facility] Glucose, POC 228(H) 70 - 199 mg/dL Blood 04/07/2025 5:06 PM CDT 04/07/2025 5:06 PM CDT Jeri Crawford MD LAB POCT ORDERABLES - DEV ICE Final Result [facility] Department of Laboratories [place], [place] [id number] * (ABNORMAL) Protime-INR (04/07/2025 4:39 PM CDT) Pathologist [facility] PT 17.3(H) 9.7 - 13.0 sec INR 1.59(H) 0.90 - 1.20 [facility] Comment: Interpretive data Oral anticoagulant therapeutic ranges: Venous thromboembolism prophylaxis or treatment: 2.0-3.0 CARDIOLOGY Standard range: 2.0-3.0 High-intensity range: 2.5-3.5 Refer to indication-specific guidelines for appropriate target ranges for prosthetic heart valve replacement. Current interpretive data was last revised on 2019. Blood 04/07/2025 4:39 PM CDT 04/07/2025 4:59 PM CDT Jeri Crawford MD LAB BLOOD ORDERABLES Elena l Result [facility] Department [place] [address] * (ABNORMAL) CBC without differential (04/07/2025 4:39 PM CDT) WBC 8.43 3.80 - 9.90 K/cumm Hgb 10.4(L) 11.9 - 15.5 g/dL [facility] Hct 31.8(L) 35.6 - 45.5 % [facility] Plt 424(H) 150 - 400 K/cumm [facility] MPV 9.5 9.1 - 12.3 fL [facility] RBC 3.45(L) 3.90 - 5.20 M/cumm [facility] MCV 92.2 81.3 - 96.4 fL [facility] MCH 30.1 27.1 - 33.3 pg [facility] MCHC 32.7 32.3 - 35.7 g/dL [facility] RDW CV 15.8(H) 11.1 - 14.9 % [facility] RDW SD 50.9(H) 35.7 - 48.1 fL [facility] NRBC abs 0.00 0.00 - 0.01 K/cumm [facility] Blood 04/07/2025 4:39 PM CDT 04/07/2025 5:20 PM CDT Jeri Crawford MD LAB BLOOD ORDERABLES Elena l Result Performing Organization Address [facility] [place] [address] * Type and screen (04/07/2025 4:39 PM CDT) ABO Rh A Positive Salazar, indirect Negative [facility] Blood 04/07/2025 4:39 PM CDT 04/07/2025 4:55 PM CDT Narrative [facility] - 04/07/2025 5:56 PM CDT Has the patient had Daratumumab or Isatuximab in the past 6 months?->Unknown Jeri Crawford MD LAB BLOOD BANK TEST ORDER JACQUELINE Final Result Performing Organization Address [facility] [place] [address] * (ABNORMAL) POCT glucose (04/07/2025 11:32 AM CDT) Glucose, POC 229(H) 70 - 199 mg/dL Blood 04/07/2025 11:3 2 AM CDT 04/07/2025 11:32 AM CDT Jeri Crawford MD LAB POCT ORDERABLES - DEV ICE Final Result Performing Organization Address City/[facility] Co de Phone Number [facility] [place] [address] * (ABNORMAL) POCT glucose (04/07/2025 7:27 AM CDT) Glucose, POC 200(H) 70 - 199 mg/dL Blood 04/07/2025 7:27 AM CDT 04/07/2025 7:27 AM CDT Jeri Crawford MD LAB POCT ORDERABLES - DEV ICE Final Result Performing Organization Address City/[facility] Co de Phone Number [facility] [place] [address] * (ABNORMAL) POCT glucose (04/06/2025 8:39 PM CDT) Glucose, POC 227(H) 70 - 199 mg/dL Blood 04/06/2025 8:39 PM CDT 04/06/2025 8:39 PM CDT Jeri Crawford MD LAB POCT ORDERABLES - DEV ICE Final Result Performing Organization Address [facility] Co de Phone Number [facility] [place] [address] * (ABNORMAL) POCT glucose (04/06/2025 5:14 PM CDT) Glucose, POC 222(H) 70 - 199 mg/dL Blood 04/06/2025 5:14 PM CDT 04/06/2025 5:14 PM CDT Jeri Crawford MD LAB POCT ORDERABLES - DEV ICE Final Result Performing Organization Address [facility] Co de Phone Number [facility] [place] [address] * POCT glucose (04/06/2025 11:07 AM CDT) Glucose, POC 122 70 - 199 mg/dL Blood 04/06/2025 11:0 7 AM CDT 04/06/2025 11:07 AM CDT us Jeri Crawford MD LAB POCT ORDERABLES - DEV ICE Final Result Performing Organization Address City/[facility]/ZIP Co de Phone Number [facility] [place] [address] * POCT glucose (04/06/2025 9:38 AM CDT) Glucose, POC 124 70 - 199 mg/dL Blood 04/06/2025 9:38 AM CDT 04/06/2025 9:38 AM CDT Jeri Crawford MD LAB POCT ORDERABLES - DEV ICE Final Result Performing Organization Address City/[facility] Co de Phone Number [facility] [place] [address] * POCT glucose (04/06/2025 8:44 AM CDT) Glucose, POC 107 70 - 199 mg/dL Blood 04/06/2025 8:44 AM CDT 04/06/2025 8:44 AM CDT Jeri Crawford MD LAB POCT ORDERABLES - DEV ICE Final Result Performing Organization Address [facility] Co de Phone Number [facility] [place] [address] * (ABNORMAL) POCT glucose (04/06/2025 8:03 AM CDT) Glucose, POC 55(L) 70 - 199 mg/dL Blood 04/06/2025 8:03 AM CDT 04/06/2025 8:03 AM CDT Jeri Crawford MD LAB POCT ORDERABLES - DEV ICE Final Result Performing Organization Address City/[facility] Co de Phone Number [facility] [place] [address] * POCT glucose (04/05/2025 10:56 PM CDT) Glucose, POC 92 70 - 199 mg/dL Blood 04/05/2025 10:5 6 PM CDT 04/05/2025 10:56 PM CDT Jeri Crawford MD LAB POCT ORDERABLES - DEV ICE Final Result Performing Organization Address [facility] Co de Phone Number [facility] [place] [address] * POCT glucose (04/05/2025 10:02 PM CDT) Glucose, POC 113 70 - 199 mg/dL Blood 04/05/2025 10:0 2 PM CDT 04/05/2025 10:02 PM CDT Jeri Crawford MD LAB POCT ORDERABLES - DEV ICE Final Result Performing Organization Address [facility] de Phone Number [facility] Department [place] [address] * (ABNORMAL) POCT glucose (04/05/2025 9:08 PM CDT) Glucose, POC 45(C) 70 - 199 mg/dL Comment:Glu2: Glucose comment 1 Glu2: [facility] Blood 04/05/2025 9:08 PM CDT 04/05/2025 9:08 PM CDT Jeri Crawford MD LAB POCT ORDERABLES - DEV ICE Final Result Performing Organization Address [facility] Co de Phone Number [facility] [place] [address] * (ABNORMAL) POCT glucose (04/05/2025 8:49 PM CDT) Glucose, POC 46(C) 70 - 199 mg/dL Comment:Glu2: RN/MD Notified Glucose comment 1 Glu2: RN/MD Notified [facility] Blood 04/05/2025 8:49 PM CDT 04/05/2025 8:49 PM CDT Jeri Crawford MD LAB POCT ORDERABLES - DEV ICE Final Result Performing Organization Address [facility] de Phone Number [facility] [place] [address] * (ABNORMAL) POCT glucose (04/05/2025 8:29 PM CDT) Glucose, POC 46(C) 70 - 199 mg/dL Comment:Glu2: Critical Value Noted Blood 04/05/2025 8:29 PM CDT 04/05/2025 8:29 PM CDT Jeri Crawford MD LAB POCT ORDERABLES - DEV ICE Final Result Performing Organization Address [facility] Co de Phone Number [facility] [place] [address] * POCT glucose (04/05/2025 3:58 PM CDT) Glucose, POC 84 70 - 199 mg/dL Blood 04/05/2025 3:58 PM CDT 04/05/2025 3:58 PM CDT Jeri Crawford MD LAB POCT ORDERABLES - DEV ICE Final Result Performing Organization Address [facility] de Phone Number [facility] [place] [address] * (ABNORMAL) Urinalysis reflex to microscopic and culture Urine, clean voided (04/05/2025 1:34 PM CDT) Color, ur Straw Yellow Clarity, ur Cloudy(A) Clear [facility] Specific gravity, ur 1.012 1.003 - 1.030 [facility] pH, urine 6.0 [facility] Comment: Interpretive Data U rine pH is affected by diet, medications, systemic acid-base disturbances, and renal tubular function. pH may affect urinary stone formation. For example, urine pH below 6.0 may help reduce the tendency for calcium phosphate stones and pH greater than 6.0 may reduce the tendency for uric acid stone formation. Source: [facility] Current Interpretive Data was last revised on 2017 Protein, ur ql Negative Negative [facility] Glucose, ur ql Negative Negative [facility] Ketones, ur Negative Negative [facility] Bilirubin, ur Negative Negative [facility] Blood, ur Negative Negative [facility] Urobilinogen, ur <2.0 <2.0 mg/dL [facility] Nitrite, ur Negative Negative [facility] Leukocyte esterase, ur 2+(A) Negative [facility] UA reflex comment Reflex to microscopic UA will be performed. [facility] Urine, clean voided 04/05/2025 1:34 PM CDT 04/05/2025 2:35 PM CDT Jeri Crawford MD LAB MICROBIOLOGY - GENERA L ORDERABLES Final Result [facility] Department [place] [address] * (ABNORMAL) Urinalysis, microscopic only (04/05/2025 1:34 PM CDT) WBC, ur >50(A) 0 - 5 /HPF RBC, ur 6-10(A) 0 - 2 /HPF [facility] Epithelial cells, squamous, ur 1-5 0 - 5 /HPF [facility] Bacteria, ur 1+(A) [facility] Mucous, ur Present(A) [facility] Culture Reflex Comment Reflex to urine culture will be performed. [facility] Urine, clean voided 04/05/2025 1:34 PM CDT 04/05/2025 2:35 PM CDT Jeri Crawford MD LAB URINE ORDERABLES Elena l Result Performing Organization Address [facility] de Phone Number [facility] Department [place] [address] * (ABNORMAL) Urine culture Urine, clean voided (04/05/2025 1:34 PM CDT) Report Final Report: Greater than or equal to 100,000 colonies/mL of Escherichia coli (.) Organism ESCHERICHIA COLI [facility] Urine, clean voided 04/05/2025 1:34 PM CDT 04/05/2025 3:39 PM CDT Narrative [facility] - 04/07/2025 9:29 AM CDT Urine culture reflexed based upon urinalysis results. Testing performed by [facility] ([phone]) Organism Antibiotic Method Susceptibility Escherichia coli Ampicillin INTERPRETATION Resistant Escherichia coli Cefazolin INTERPRETATION Susceptible Escherichia coli Nitrofurantoin INTERPRETATION Susceptible Escherichia coli Gentamicin INTERPRETATION Susceptible Escherichia coli Trimethoprim with Sulfamethoxazole IN TERPRETATION Susceptible Escherichia coli Meropenem INTERPRETATION Susceptible Escherichia coli Cefepime INTERPRETATION Susceptible Escherichia coli Ciprofloxacin INTERPRETATION Resistant Escherichia coli Ceftazidime INTERPRETATION Susceptible Escherichia coli Ceftriaxone INTERPRETATION Susceptible Escherichia coli Piperacillin/Tazobactam INTERPRETATIO N Susceptible Escherichia coli Cephalexin INTERPRETATION Susceptible Escherichia coli Cefuroxime-axetil INTERPRETATION Susceptible Escherichia coli Cefdinir INTERPRETATION Susceptible Jeri Crawford MD LAB MICROBIOLOGY - GENERA L ORDERABLES Final Result Performing Organization Address [facility] de Phone Number [facility] Department [place] [address] * POCT glucose (04/05/2025 11:36 AM CDT) Glucose, POC 153 70 - 199 mg/dL Blood 04/05/2025 11:3 6 AM CDT 04/05/2025 11:36 AM CDT Jeri Crawford MD LAB POCT ORDERABLES - DEV ICE Final Result [facility] Department [place] [address] * POCT glucose (04/05/2025 7:34 AM CDT) [facility] Glucose, POC 132 70 - 199 mg/dL Blood 04/05/2025 7:34 AM CDT 04/05/2025 7:34 AM CDT Jeri Crawford MD LAB POCT ORDERABLES - DEV ICE Final Result Performing Organization Address [facility] Co de Phone Number [facility] [place] [address] * Infection Prevention Krystal auris PCR, surveillance Axilla/Groin (04/05/2025 4:24 AM CDT) [facility] Krystal auris DNA Not Detected Not Detected [facility] Comment: Interpretive Data Testing performed by [facility] using the Florentin pawel 6800 Krystal auris assay. This assay detects DNA from Krystal auris using Real-Time PCR. This assay is laboratory developed and is not cleared by the [place] Food and Drug Administration. The performance characteristics have been verified by the [facility]. Axilla/Groin 04/05/2025 4:24 AM CDT 04/05/2025 5:34 AM CDT Narrative [facility] - 04/05/2025 2:34 PM CDT Order placed by [facility] due to ring surveillance. us Instant Order Generic Provider LAB MICROBIOLOGY - GENERAL ORDERABLES Final Result Performing Organization Address [facility]/ZIP Co de Phone Number [facility] Department [place] [address] [facility] * eGFR (04/05/2025 4:24 AM CDT) [facility] eGFR 83 >=60 mL/min/1. 73 m2 Comment: Interpretive Data Reference Interval Normal >/= 90 mL/min/1.73m2 Mildly decreased* 60 - 89 mL/min/1.73m2 Mildly to moderately decreased 45 - 59 mL/min/1.73m2 Moderately to severely decreased 30 - 44 mL/min/1.73m2 Severely decreased 15 - 29 mL/min/1.73m2 Kidney Failure < 15 mL/min/1.73m2 *Relative to young adult level Estimated glomerular filtration rate is determined by the 2020 CKD-EPI equation recommended by the National Kidney Foundation (A Unifying Approach to GFR Estimation: Recommendations of the NKF-ASK Task Force on Reassessing the Inclusion of Race in Diagnosing Kidney Disease, JASN 2020). The CKD-EPI equation should not be used for patients with unstable renal function and has not been validated in children and those over 70. Current interpretive data was last reviewed 2021. Blood 04/05/2025 4:24 AM CDT 04/05/2025 5:27 AM CDT us Jeri Crawford MD LAB BLOOD ORDERABLES Elena lau Result [facility] Department [place] [address] * (ABNORMAL) CBC without differential (04/05/2025 4:24 AM CDT) WBC 13.03(H) 3.80 - 9.90 K/cumm Hgb 11.1(L) 11.9 - 15.5 g/dL [facility] Hct 34.0(L) 35.6 - 45.5 % [facility] Plt 276 150 - 400 K/cumm [facility] MPV 9.8 9.1 - 12.3 fL [facility] RBC 3.74(L) 3.90 - 5.20 M/cumm [facility] MCV 90.9 81.3 - 96.4 fL [facility] MCH 29.7 27.1 - 33.3 pg [facility] MCHC 32.6 32.3 - 35.7 g/dL [facility] RDW CV 15.1(H) 11.1 - 14.9 % [facility] RDW SD 49.1(H) 35.7 - 48.1 fL [facility] NRBC abs 0.00 0.00 - 0.01 K/cumm [facility] Blood 04/05/2025 4:24 AM CDT 04/05/2025 5:28 AM CDT Jeri Crawford MD LAB BLOOD ORDERABLES Elena l Result [facility] [place] [address] * Phosphorus (04/05/2025 4:24 AM CDT) Phosphorus, pl 3.3 2.3 - 4.5 mg/dL Blood 04/05/2025 4:24 AM CDT 04/05/2025 5:27 AM CDT Jeri Crawford MD LAB BLOOD ORDERABLES Elena l Result Performing Organization Address City/[facility] Co de Phone Number [facility] Department [place] [employer] [place] [address] * Magnesium (04/05/2025 4:24 AM CDT) Magnesium 1.9 1.4 - 2.5 mg/dL Blood 04/05/2025 4:24 AM CDT 04/05/2025 5:27 AM CDT Jeri Crawford MD LAB BLOOD ORDERABLES Elena l Result Performing Organization Address City/[facility] Co de Phone Number [facility] [place] [address] * Basic metabolic panel (04/05/2025 4:24 AM CDT) Sodium 142 135 - 145 mmol/L Potassium, pl 4.1 3.3 - 4.9 mmol/L [facility] Chloride 107 97 - 110 mmol/L [facility] CO2 28 22 - 32 mmol/L [facility] Anion gap 7 2 - 15 mmol/L [facility] BUN 18 6 - 25 mg/dL [facility] Creatinine 0.76 0.60 - 1.10 mg/dL [facility] Glucose 129 70 - 199 mg/dL [facility] Comment: Interpretive Data Fasting glucose >/= 126 mg/dl is diagnostic for diabetes. Fasting is defined as no caloric intake for at least 8 hours. Fasting glucose between 100 mg/dl to 125 mg/dl is diagnostic of prediabetes. In a patient with classic symptoms of hyperglycemia or hyperglycemic crisis, a random glucose >/= 200 mg/dl is diagnostic for diabetes. In the absence of unequivocal hyperglycemia, results should be confirmed by repeat testing. The classification and Diagnosis of Diabetes Diabetes Care 202; 46: S19-S40. Current interpretive data was last revised 2022. Calcium 8.7 8.5 - 10.3 mg/dL [facility] Blood 04/05/2025 4:24 AM CDT 04/05/2025 5:27 AM CDT Jeri Crawford MD LAB BLOOD ORDERABLES Elena l Result Performing Organization Address City/[facility]/ZIP Co de Phone Number [facility] Department of [employer] [place] [address] * POCT glucose (04/04/2025 7:50 PM CDT) [facility] Glucose, POC 188 70 - 199 mg/dL Blood 04/04/2025 7:50 PM CDT 04/04/2025 7:50 PM CDT Jeri Crawford MD LAB POCT ORDERABLES - DEV ICE Final Result Performing Organization Address [facility]/ZIP Co de Phone Number [facility] Department [place] [address] * (ABNORMAL) POCT glucose (04/04/2025 5:13 PM CDT) Glucose, POC 206(H) 70 - 199 mg/dL Blood 04/04/2025 5:13 PM CDT 04/04/2025 5:13 PM CDT us Jeri Crawford MD LAB POCT ORDERABLES - DEV ICE Final Result [facility] Department [place] [address] * XR Chest 1 View (04/04/2025 12:37 PM CDT) Anatomical Region Laterality Modality Body, Chest N/A Digital Radiogra phy 04/04/2025 2:37 PM CDT Impressions 04/04/2025 2:52 PM CDT The current study is compared with the prior radiograph dated 04/02/2025. A left internal jugular catheter is in place, tip overlies the superior vena cava Mild bibasilar atelectasis. Transcatheter aortic valve. The cardiomediastinal silhouette is enlarged, stable from prior. No pneumothorax. Small right pleural effusion. Dictated by: Emeterio Elias MD The radiology attending physician has personally reviewed this study, and had reviewed and/or edited this written report and agrees with it. Electronically signed by: Anil Rosales M.D. Narrative 04/04/2025 2:52 PM CDT EXAMINATION: 1 view chest radiograph Procedure Note Anil Rosales MD - 04/04/2025 EXAMINATION: 1 view chest radiograph IMPRESSION: The current study is compared with the prior radiograph dated 04/02/2025. A left internal jugular catheter is in place, tip overlies the superior vena cava Mild bibasilar atelectasis. Transcatheter aortic valve. The cardiomediastinal silhouette is enlarged, stable from prior. No pneumothorax. Small right pleural effusion. Dictated by: Emeterio Elias MD The radiology attending physician has personally reviewed this study, and had reviewed and/or edited this written report and agrees with it. Electronically signed by: Anil Rosales M.D. Jeri Crawford MD IMG XR PROCEDURES Final R esult * POCT glucose (04/04/2025 11:21 AM CDT) Glucose, POC 191 70 - 199 mg/dL Blood 04/04/2025 11:2 1 AM CDT 04/04/2025 11:21 AM CDT Jeri Crawford MD LAB POCT ORDERABLES - DEV ICE Final Result Performing Organization Address City/[facility] Co de Phone Number [facility] Department [place] [employer] [place] [address] * POCT glucose (04/04/2025 7:32 AM CDT) Glucose, POC 147 70 - 199 mg/dL Blood 04/04/2025 7:32 AM CDT 04/04/2025 7:32 AM CDT Jeri Crawford MD LAB POCT ORDERABLES - DEV ICE Final Result Performing Organization Address City/[facility] Co de Phone Number [facility] [place] [employer] [place] [address] * eGFR (04/04/2025 5:18 AM CDT) eGFR 79 >=60 mL/min/1. 73 m2 Comment: Interpretive Data Reference Interval Normal >/= 90 mL/min/1.73m2 Mildly decreased* 60 - 89 mL/min/1.73m2 Mildly to moderately decreased 45 - 59 mL/min/1.73m2 Moderately to severely decreased 30 - 44 mL/min/1.73m2 Severely decreased 15 - 29 mL/min/1.73m2 Kidney Failure < 15 mL/min/1.73m2 *Relative to young adult level Estimated glomerular filtration rate is determined by the 2020 CKD-EPI equation recommended by the National Kidney Foundation (A Unifying Approach to GFR Estimation: Recommendations of the NKF-ASK Task Force on Reassessing the Inclusion of Race in Diagnosing Kidney Disease, JASN 2020). The CKD-EPI equation should not be used for patients with unstable renal function and has not been validated in children and those over 70. Current interpretive data was last reviewed 2021. Blood 04/04/2025 5:18 AM CDT 04/04/2025 5:32 AM CDT us Jeri Crawford MD LAB BLOOD ORDERABLES lEena lau Result [facility] Department [place] [address] * (ABNORMAL) Differential, auto (04/04/2025 5:18 AM CDT) Neutrophil abs 9.30(H) 1.50 - 6.50 K/cumm Imm gran abs 0.21(H) 0.00 - 0.10 K/cumm [facility] Lymphocyte abs 0.94 0.80 - 3.30 K/cumm [facility] Monocyte abs 0.62 0.20 - 0.80 K/cumm [facility] Eosinophil abs 0.30 0.00 - 0.50 K/cumm [facility] Basophil abs 0.02 0.00 - 0.10 K/cumm [facility] Neutrophil pct 81.7 % [facility] Comment: Interpretive Data Percent cell count reference ranges are not reported, since discordance with absolute values may lead to misinterpretation of CBC data. Current Interpretive Data was last revised on 2018. Imm gran pct 1.8 % [facility] Comment: Interpretive Data Percent cell count reference ranges are not reported, since discordance with absolute values may lead to misinterpretation of CBC data. Current Interpretive Data was last revised on 2018. Lymphocyte pct 8.3 % [facility] Comment: Interpretive Data Percent cell count reference ranges are not reported, since discordance with absolute values may lead to misinterpretation of CBC data. Current Interpretive Data was last revised on 2018. Monocyte pct 5.4 % [facility] Comment: Interpretive Data Percent cell count reference ranges are not reported, since discordance with absolute values may lead to misinterpretation of CBC data. Current Interpretive Data was last revised on 2018. Eosinophil pct 2.6 % [facility] Comment: Interpretive Data Percent cell count reference ranges are not reported, since discordance with absolute values may lead to misinterpretation of CBC data. Current Interpretive Data was last revised on 2018. Basophil pct 0.2 % [facility] Comment: Interpretive Data Percent cell count reference ranges are not reported, since discordance with absolute values may lead to misinterpretation of CBC data. Current Interpretive Data was last revised on 2018. Blood 04/04/2025 5:18 AM CDT 04/04/2025 5:32 AM CDT us Jeri Crawford MD LAB BLOOD ORDERABLES Elena lau Result [facility] Department [place] [address] * (ABNORMAL) CBC with auto differential (04/04/2025 5:18 AM CDT) WBC 11.39(H) 3.80 - 9.90 K/cumm Hgb 10.9(L) 11.9 - 15.5 g/dL [facility] Hct 33.5(L) 35.6 - 45.5 % [facility] Plt 250 150 - 400 K/cumm [facility] MPV 9.6 9.1 - 12.3 fL [facility] RBC 3.70(L) 3.90 - 5.20 M/cumm [facility] MCV 90.5 81.3 - 96.4 fL [facility] MCH 29.5 27.1 - 33.3 pg [facility] MCHC 32.5 32.3 - 35.7 g/dL [facility] RDW CV 15.2(H) 11.1 - 14.9 % [facility] RDW SD 49.0(H) 35.7 - 48.1 fL [facility] NRBC abs 0.00 0.00 - 0.01 K/cumm [facility] Blood 04/04/2025 5:18 AM CDT 04/04/2025 5:32 AM CDT Jeri Crawford MD LAB BLOOD ORDERABLES Elena l Result [facility] Department [place] [address] * Phosphorus (04/04/2025 5:18 AM CDT) [facility] Phosphorus, pl 2.8 2.3 - 4.5 mg/dL Blood 04/04/2025 5:18 AM CDT 04/04/2025 5:32 AM CDT Jeri Crawford MD LAB BLOOD ORDERABLES Elena l Result Performing Organization Address City/[facility] Co de Phone Number [facility] Department [place] [address] * (ABNORMAL) Basic metabolic panel (04/04/2025 5:18 AM CDT) [facility] Sodium 141 135 - 145 mmol/L Potassium, pl 3.4 3.3 - 4.9 mmol/L [facility] Chloride 106 97 - 110 mmol/L [facility] CO2 29 22 - 32 mmol/L [facility] Anion gap 6 2 - 15 mmol/L [facility] BUN 16 6 - 25 mg/dL [facility] Creatinine 0.79 0.60 - 1.10 mg/dL [facility] Glucose 148 70 - 199 mg/dL [facility] Comment: Interpretive Data Fasting glucose >/= 126 mg/dl is diagnostic for diabetes. Fasting is defined as no caloric intake for at least 8 hours. Fasting glucose between 100 mg/dl to 125 mg/dl is diagnostic of prediabetes. In a patient with classic symptoms of hyperglycemia or hyperglycemic crisis, a random glucose >/= 200 mg/dl is diagnostic for diabetes. In the absence of unequivocal hyperglycemia, results should be confirmed by repeat testing. The classification and Diagnosis of Diabetes Diabetes Care 2021; 46: S19-S40. Current interpretive data was last revised 2022. Calcium 7.9(L) 8.5 - 10.3 mg/dL [facility] Blood 04/04/2025 5:18 AM CDT 04/04/2025 5:32 AM CDT Jeri Crawford MD LAB BLOOD ORDERABLES Elena l Result Performing Organization Address City/[facility]/ZIP Co de Phone Number [facility] Department [place] [address] * (ABNORMAL) POCT glucose (04/03/2025 8:01 PM CDT) Glucose, POC 221(H) 70 - 199 mg/dL Blood 04/03/2025 8:01 PM CDT 04/03/2025 8:01 PM CDT Jeri Crawford MD LAB POCT ORDERABLES - DEV ICE Final Result Performing Organization Address [facility]/ZIP Co de Phone Number [facility] Department [place] [address] * (ABNORMAL) Protime-INR (04/03/2025 6:05 PM CDT) PT 13.3(H) 9.7 - 13.0 sec INR 1.23(H) 0.90 - 1.20 [facility] Comment: Interpretive data Oral anticoagulant therapeutic ranges: Venous thromboembolism prophylaxis or treatment: 2.0-3.0 CARDIOLOGY Standard range: 2.0-3.0 High-intensity range: 2.5-3.5 Refer to indication-specific guidelines for appropriate target ranges for prosthetic heart valve replacement. Current interpretive data was last revised on 2019. Blood 04/03/2025 6:05 PM CDT 04/03/2025 6:23 PM CDT Narrative [facility] - 04/03/2025 6:30 PM CDT Baseline prior to apixaban initiation. Jeri Crawford MD LAB BLOOD ORDERABLES Elena l Result Performing Organization Address City/[facility] Co de Phone Number [facility] Department [place] [address] * (ABNORMAL) Hepatic function panel (04/03/2025 6:05 PM CDT) Bilirubin, total 0.9 0.1 - 1.2 mg/dL Bilirubin, direct 0.3 0.1 - 0.3 mg/dL [facility] Protein, pl 6.6 6.5 - 8.5 g/dL [facility] Albumin 2.8(L) 3.5 - 5.0 g/dL [facility] Alk phos 86 40 - 130 Units/L [facility] ALT 24 7 - 45 Units/L [facility] AST 26 10 - 45 Units/L [facility] Blood 04/03/2025 6:05 PM CDT 04/03/2025 7:06 PM CDT Narrative [facility] - 04/03/2025 7:10 PM CDT Baseline prior to apixaban initiation. Jeri Crawford MD LAB BLOOD ORDERABLES Elena l Result Performing Organization Address [facility]/ZIP Co de Phone Number [facility] [place] [address] * (ABNORMAL) POCT glucose (04/03/2025 5:16 PM CDT) Glucose, POC 202(H) 70 - 199 mg/dL Blood 04/03/2025 5:16 PM CDT 04/03/2025 5:16 PM CDT Jeri Crawford MD LAB POCT ORDERABLES - DEV ICE Final Result Performing Organization Address [facility] Co de Phone Number [facility] [place] [address] * (ABNORMAL) POCT glucose (04/03/2025 11:29 AM CDT) Glucose, POC 216(H) 70 - 199 mg/dL Blood 04/03/2025 11:2 9 AM CDT 04/03/2025 11:29 AM CDT Jeri Crawford MD LAB POCT ORDERABLES - DEV ICE Final Result Performing Organization Address [facility] Co de Phone Number [facility] [place] [address] * POCT glucose (04/03/2025 7:50 AM CDT) Glucose, POC 187 70 - 199 mg/dL Blood 04/03/2025 7:50 AM CDT 04/03/2025 7:50 AM CDT Jeri Crawford MD LAB POCT ORDERABLES - DEV ICE Final Result Performing Organization Address [facility] Co de Phone Number [facility] [place] [address] * eGFR (04/03/2025 4:56 AM CDT) eGFR 90 >=60 mL/min/1. 73 m2 Comment: Interpretive Data Reference Interval Normal >/= 90 mL/min/1.73m2 Mildly decreased* 60 - 89 mL/min/1.73m2 Mildly to moderately decreased 45 - 59 mL/min/1.73m2 Moderately to severely decreased 30 - 44 mL/min/1.73m2 Severely decreased 15 - 29 mL/min/1.73m2 Kidney Failure < 15 mL/min/1.73m2 *Relative to young adult level Estimated glomerular filtration rate is determined by the 2020 CKD-EPI equation recommended by the National Kidney Foundation (A Unifying Approach to GFR Estimation: Recommendations of the NKF-ASK Task Force on Reassessing the Inclusion of Race in Diagnosing Kidney Disease, JASN 2020). The CKD-EPI equation should not be used for patients with unstable renal function and has not been validated in children and those over 70. Current interpretive data was last reviewed 2021. Blood 04/03/2025 4:56 AM CDT 04/03/2025 6:11 AM CDT us Jeri Crawford MD LAB BLOOD ORDERABLES Elena lau Result [facility] Department [place] [address] * (ABNORMAL) CBC without differential (04/03/2025 4:56 AM CDT) WBC 8.90 3.80 - 9.90 K/cumm Hgb 10.5(L) 11.9 - 15.5 g/dL [facility] Hct 32.4(L) 35.6 - 45.5 % [facility] Plt 204 150 - 400 K/cumm [facility] MPV 9.8 9.1 - 12.3 fL [facility] RBC 3.54(L) 3.90 - 5.20 M/cumm [facility] MCV 91.5 81.3 - 96.4 fL [facility] MCH 29.7 27.1 - 33.3 pg [facility] MCHC 32.4 32.3 - 35.7 g/dL [facility] RDW CV 15.0(H) 11.1 - 14.9 % [facility] RDW SD 49.0(H) 35.7 - 48.1 fL [facility] NRBC abs 0.00 0.00 - 0.01 K/cumm [facility] Blood 04/03/2025 4:56 AM CDT 04/03/2025 6:11 AM CDT Jeri Crawford MD LAB BLOOD ORDERABLES Elena l Result Performing Organization Address [facility] Co de Phone Number [facility] [place] [address] * (ABNORMAL) Phosphorus (04/03/2025 4:56 AM CDT) Pathologist [facility] Phosphorus, pl 2.0(L) 2.3 - 4.5 mg/dL Blood 04/03/2025 4:56 AM CDT 04/03/2025 6:11 AM CDT Jeri Crawford MD LAB BLOOD ORDERABLES Elena l Result Performing Organization Address [facility] de Phone Number [facility] [place] [address] * Magnesium (04/03/2025 4:56 AM CDT) [facility] Magnesium 2.1 1.4 - 2.5 mg/dL Blood 04/03/2025 4:56 AM CDT 04/03/2025 6:11 AM CDT Jeri Crawford MD LAB BLOOD ORDERABLES Elena l Result Performing Organization Address [facility] de Phone Number [facility] [place] [address] * Basic metabolic panel (04/03/2025 4:56 AM CDT) Pathologist [facility] Sodium 143 135 - 145 mmol/L Potassium, pl 3.3 3.3 - 4.9 mmol/L [facility] Chloride 106 97 - 110 mmol/L [facility] CO2 30 22 - 32 mmol/L [facility] Anion gap 7 2 - 15 mmol/L [facility] BUN 16 6 - 25 mg/dL [facility] Creatinine 0.71 0.60 - 1.10 mg/dL [facility] Glucose 188 70 - 199 mg/dL [facility] Comment: Interpretive Data Fasting glucose >/= 126 mg/dl is diagnostic for diabetes. Fasting is defined as no caloric intake for at least 8 hours. Fasting glucose between 100 mg/dl to 125 mg/dl is diagnostic of prediabetes. In a patient with classic symptoms of hyperglycemia or hyperglycemic crisis, a random glucose >/= 200 mg/dl is diagnostic for diabetes. In the absence of unequivocal hyperglycemia, results should be confirmed by repeat testing. The classification and Diagnosis of Diabetes Diabetes Care 2021; 46: S19-S40. Current interpretive data was last revised 2022. Calcium 8.6 8.5 - 10.3 mg/dL [facility] Blood 04/03/2025 4:56 AM CDT 04/03/2025 6:11 AM CDT Jeri Crawford MD LAB BLOOD ORDERABLES Elena l Result [facility] Department [place] [address] * POCT glucose (04/02/2025 8:35 PM CDT) Glucose, POC 193 70 - 199 mg/dL Blood 04/02/2025 8:35 PM CDT 04/02/2025 8:35 PM CDT Jeri Crawford MD LAB POCT ORDERABLES - DEV ICE Final Result Performing Organization Address City/[facility]/ZIP Co de Phone Number [facility] Department [place] [address] * Infection Prevention Krystal auris PCR, surveillance Axilla/Groin (04/02/2025 7:27 PM CDT) Pathologist [facility] Krystal auris DNA Not Detected Not Detected [facility] Comment: Interpretive Data Testing performed by [facility] using the Florentin pawel 6800 Krystal auris assay. This assay detects DNA from Krystal auris using Real-Time PCR. This assay is laboratory developed and is not cleared by the [place] Food and Drug Administration. The performance characteristics have been verified by the [facility]. Axilla/Groin 04/02/2025 7:27 PM CDT 04/02/2025 8:54 PM CDT us Clive Colmenares MD LAB MICROBIOLOGY - GENERAL ORDER JACQUELINE Final Result [facility] Department [place] [address] [facility] * XR Chest Pa Lateral 2 Views (04/02/2025 5:59 PM CDT) Anatomical Region Laterality Modality Body, Chest N/A Computed Radiogr aphy 04/03/2025 9:02 AM CDT Impressions 04/03/2025 9:15 AM CDT Comparison with 04/02/2025 12:20 PM. Transcatheter aortic valve replacement. Left internal jugular central venous catheter in the superior vena cava. Interval removal of bilateral thoracostomy tubes. Unchanged trace right apical pneumothorax. No left pneumothorax. Stable small bilateral pleural effusions with associated atelectasis. Stable cardiomediastinal silhouette. Dictated by: Rebekah Lopes MD The radiology attending physician has personally reviewed this study, and had reviewed and/or edited this written report and agrees with it. Electronically signed by: Buzz Palma M.D. Narrative 04/03/2025 9:15 AM CDT EXAMINATION: 2 view chest radiograph Procedure Note Buzz Palma MD - 04/03/2025 EXAMINATION: 2 view chest radiograph IMPRESSION: Comparison with 04/02/2025 12:20 PM. Transcatheter aortic valve replacement. Left internal jugular central venous catheter in the superior vena cava. Interval removal of bilateral thoracostomy tubes. Unchanged trace right apical pneumothorax. No left pneumothorax. Stable small bilateral pleural effusions with associated atelectasis. Stable cardiomediastinal silhouette. Dictated by: Rebekah Lopes MD The radiology attending physician has personally reviewed this study, and had reviewed and/or edited this written report and agrees with it. Electronically signed by: Buzz Palma M.D. us Gonzalez Lin DATABASE ENGINEER IMG XR PROCEDURES Final R esult * POCT glucose (04/02/2025 5:45 PM CDT) Glucose, POC 199 70 - 199 mg/dL Blood 04/02/2025 5:45 PM CDT 04/02/2025 5:45 PM CDT us Jeri Crawford MD LAB POCT ORDERABLES - DEV ICE Final Result [facility] Department [place] [address] * XR Chest 1 View (04/02/2025 12:40 PM CDT) Anatomical Region Laterality Modality Body, Chest N/A Computed Radiogr aphy 04/02/2025 1:57 PM CDT Impressions 04/02/2025 2:29 PM CDT The current study is compared with the prior radiograph dated 04/02/2025 at 4:29 AM. A left internal jugular catheter is in place, tip overlies the superior vena cava. Transcatheter aortic valve. Bilateral chest tubes. Small bilateral pleural effusions and bibasilar atelectasis, not significantly changed. The heart and mediastinal contours are stable. Unchanged small right apical pneumothorax. No left pneumothorax. Dictated by: Emeterio Elias MD The radiology attending physician has personally reviewed this study, and had reviewed and/or edited this written report and agrees with it. Electronically signed by: Anil Rosales M.D. Narrative 04/02/2025 2:29 PM CDT EXAMINATION: 1 view chest radiograph Procedure Note Anil Rosales MD - 04/02/2025 EXAMINATION: 1 view chest radiograph IMPRESSION: The current study is compared with the prior radiograph dated 04/02/2025 at 4:29 AM. A left internal jugular catheter is in place, tip overlies the superior vena cava. Transcatheter aortic valve. Bilateral chest tubes. Small bilateral pleural effusions and bibasilar atelectasis, not significantly changed. The heart and mediastinal contours are stable. Unchanged small right apical pneumothorax. No left pneumothorax. Dictated by: Emeterio Elias MD The radiology attending physician has personally reviewed this study, and had reviewed and/or edited this written report and agrees with it. Electronically signed by: Anil Rosales M.D. us Gonzalez Lin DATABASE ENGINEER IMG XR PROCEDURES Final R esult * (ABNORMAL) POCT glucose (04/02/2025 11:55 AM CDT) Glucose, POC 251(H) 70 - 199 mg/dL Comment:Glu2: ABIOLA/ Notified Glucose comment 1 Glu2: ABIOLA/ Notified [facility] Blood 04/02/2025 11:5 5 AM CDT 04/02/2025 11:55 AM CDT Jeri Crawford MD LAB POCT ORDERABLES - DEV ICE Final Result Performing Organization Address [facility] de Phone Number [facility] Department [place] [address] * (ABNORMAL) POCT glucose (04/02/2025 8:46 AM CDT) Glucose, POC 283(H) 70 - 199 mg/dL Comment:Glu2: ABIOLA/ Notified Glucose comment 1 Glu2: ABIOLA/ Notified [facility] Blood 04/02/2025 8:46 AM CDT 04/02/2025 8:46 AM CDT us Jeri Crawford MD LAB POCT ORDERABLES - DEV ICE Final Result Performing Organization Address [facility]/State/ZIP Co de Phone Number [facility] Department [place] [address] * (ABNORMAL) POCT glucose (04/02/2025 8:18 AM CDT) Glucose, POC 216(H) 70 - 199 mg/dL Blood 04/02/2025 8:18 AM CDT 04/02/2025 8:18 AM CDT us Jeri Crawford MD LAB POCT ORDERABLES - DEV ICE Final Result Performing Organization Address [facility] Co de Phone Number [facility] [place] [address] * eGFR (04/02/2025 5:37 AM CDT) eGFR 84 >=60 mL/min/1. 73 m2 Comment: Interpretive Data Reference Interval Normal >/= 90 mL/min/1.73m2 Mildly decreased* 60 - 89 mL/min/1.73m2 Mildly to moderately decreased 45 - 59 mL/min/1.73m2 Moderately to severely decreased 30 - 44 mL/min/1.73m2 Severely decreased 15 - 29 mL/min/1.73m2 Kidney Failure < 15 mL/min/1.73m2 *Relative to young adult level Estimated glomerular filtration rate is determined by the 2020 CKD-EPI equation recommended by the National Kidney Foundation (A Unifying Approach to GFR Estimation: Recommendations of the NKF-ASK Task Force on Reassessing the Inclusion of Race in Diagnosing Kidney Disease, JASN 2020). The CKD-EPI equation should not be used for patients with unstable renal function and has not been validated in children and those over 70. Current interpretive data was last reviewed 2021. Blood 04/02/2025 5:37 AM CDT 04/02/2025 6:18 AM CDT us Ruddy Garcia MD PhD LAB BLOOD ORDERABLES Fi nal Result Performing Organization Address City/[facility]/ZIP Co de Phone Number [facility] [place] [address] * Calcium, ionized (04/02/2025 5:37 AM CDT) [facility] Calcium, Ionized 4.74 4.50 - 5.10 mg/dL Blood 04/02/2025 5:37 AM CDT 04/02/2025 6:13 AM CDT us Jeremiah Dalal MD LAB BLOOD ORDERABLES Final R esult Performing Organization Address [facility] Co de Phone Number [facility] [place] [address] * (ABNORMAL) CBC without differential (04/02/2025 5:37 AM CDT) [facility] WBC 7.62 3.80 - 9.90 K/cumm Hgb 10.5(L) 11.9 - 15.5 g/dL [facility] Hct 32.3(L) 35.6 - 45.5 % [facility] Plt 157 150 - 400 K/cumm [facility] MPV 10.0 9.1 - 12.3 fL [facility] RBC 3.48(L) 3.90 - 5.20 M/cumm [facility] MCV 92.8 81.3 - 96.4 fL [facility] MCH 30.2 27.1 - 33.3 pg [facility] MCHC 32.5 32.3 - 35.7 g/dL [facility] RDW CV 14.8 11.1 - 14.9 % [facility] RDW SD 49.7(H) 35.7 - 48.1 fL [facility] NRBC abs 0.00 0.00 - 0.01 K/cumm [facility] Blood 04/02/2025 5:37 AM CDT 04/02/2025 6:18 AM CDT us Ruddy Garcia MD PhD LAB BLOOD ORDERABLES Fi nal Result Performing Organization Address City/[facility] Co de Phone Number [facility] [place] [address] * Phosphorus (04/02/2025 5:37 AM CDT) [facility] Phosphorus, pl 2.3 2.3 - 4.5 mg/dL Blood 04/02/2025 5:37 AM CDT 04/02/2025 6:18 AM CDT us Jeremiah Dalal MD LAB BLOOD ORDERABLES Final R esult Performing Organization Address [facility] Co de Phone Number [facility] [employer] [place] [address] * Magnesium (04/02/2025 5:37 AM CDT) [facility] Magnesium 2.1 1.4 - 2.5 mg/dL Blood 04/02/2025 5:37 AM CDT 04/02/2025 6:18 AM CDT us Ruddy Garcia MD PhD LAB BLOOD ORDERABLES Fi nal Result Performing Organization Address [facility] de Phone Number [facility] [employer] [place] [address] * (ABNORMAL) Hepatic function panel (04/02/2025 5:37 AM CDT) [facility] Bilirubin, total 0.8 0.1 - 1.2 mg/dL Bilirubin, direct 0.3 0.1 - 0.3 mg/dL [facility] Protein, pl 5.8(L) 6.5 - 8.5 g/dL [facility] Albumin 2.8(L) 3.5 - 5.0 g/dL [facility] Alk phos 76 40 - 130 Units/L [facility] ALT 20 7 - 45 Units/L [facility] AST 16 10 - 45 Units/L [facility] Blood 04/02/2025 5:37 AM CDT 04/02/2025 6:18 AM CDT us Jeremiah Dalal MD LAB BLOOD ORDERABLES Final R esult Performing Organization Address City/[facility]/ZIP Co de Phone Number [facility] Department [place] [address] * (ABNORMAL) Basic metabolic panel (04/02/2025 5:37 AM CDT) [facility] Sodium 144 135 - 145 mmol/L Potassium, pl 3.6 3.3 - 4.9 mmol/L [facility] Chloride 107 97 - 110 mmol/L [facility] CO2 31 22 - 32 mmol/L [facility] Anion gap 6 2 - 15 mmol/L [facility] BUN 16 6 - 25 mg/dL [facility] Creatinine 0.75 0.60 - 1.10 mg/dL [facility] Glucose 216(H) 70 - 199 mg/dL [facility] Comment: Interpretive Data Fasting glucose >/= 126 mg/dl is diagnostic for diabetes. Fasting is defined as no caloric intake for at least 8 hours. Fasting glucose between 100 mg/dl to 125 mg/dl is diagnostic of prediabetes. In a patient with classic symptoms of hyperglycemia or hyperglycemic crisis, a random glucose >/= 200 mg/dl is diagnostic for diabetes. In the absence of unequivocal hyperglycemia, results should be confirmed by repeat testing. The classification and Diagnosis of Diabetes Diabetes Care 2021; 46: S19-S40. Current interpretive data was last revised 2022. Calcium 8.7 8.5 - 10.3 mg/dL [facility] Blood 04/02/2025 5:37 AM CDT 04/02/2025 6:18 AM CDT us Ruddy Garcia MD PhD LAB BLOOD ORDERABLES Fi nal Result Performing Organization Address [facility]/ZIP Co de Phone Number [facility] Department [place] [address] * XR Chest 1 View (04/02/2025 4:38 AM CDT) Anatomical Region Laterality Modality Body, Chest N/A Computed Radiogr aphy 04/02/2025 8:43 AM CDT Impressions 04/02/2025 10:23 AM CDT Comparison with 04/01/2025 3:13 PM . Transcatheter aortic valve replacement. Left internal jugular central venous catheter in the superior vena cava. Bilateral thoracostomy tubes in unchanged position. Unchanged small right apical pneumothorax. No left pneumothorax. Trace right and small left pleural effusions. Lung volumes are small and decreased from the prior exam. Moderate bibasilar atelectasis. Stable cardiac and mediastinal silhouette. Dictated by: Rebekah Lopes MD The radiology attending physician has personally reviewed this study, and had reviewed and/or edited this written report and agrees with it. Electronically signed by: Jez Tolentino MD, PHD Narrative 04/02/2025 10:23 AM CDT EXAMINATION: 1 view chest radiograph Procedure Note Jez Tolentino MD PhD - 04/02/2025 EXAMINATION: 1 view chest radiograph IMPRESSION: Comparison with 04/01/2025 3:13 PM . Transcatheter aortic valve replacement. Left internal jugular central venous catheter in the superior vena cava. Bilateral thoracostomy tubes in unchanged position. Unchanged small right apical pneumothorax. No left pneumothorax. Trace right and small left pleural effusions. Lung volumes are small and decreased from the prior exam. Moderate bibasilar atelectasis. Stable cardiac and mediastinal silhouette. Dictated by: Rebekah Lopes MD The radiology attending physician has personally reviewed this study, and had reviewed and/or edited this written report and agrees with it. Electronically signed by: Jez Tolentino MD, PHD Ruddy Garcia MD PhD IMG XR PROCEDURES Final Result * (ABNORMAL) POCT glucose (04/01/2025 8:28 PM CDT) Glucose, POC 207(H) 70 - 199 mg/dL Blood 04/01/2025 8:28 PM CDT 04/01/2025 8:28 PM CDT Julienne Ramon MD LAB POCT O RDERABLES - DEVICE Final Result Performing Organization Address [facility] de Phone Number [facility] Department [place] [address] * eGFR (04/01/2025 5:43 PM CDT) eGFR 81 >=60 mL/min/1. 73 m2 Comment: Interpretive Data Reference Interval Normal >/= 90 mL/min/1.73m2 Mildly decreased* 60 - 89 mL/min/1.73m2 Mildly to moderately decreased 45 - 59 mL/min/1.73m2 Moderately to severely decreased 30 - 44 mL/min/1.73m2 Severely decreased 15 - 29 mL/min/1.73m2 Kidney Failure < 15 mL/min/1.73m2 *Relative to young adult level Estimated glomerular filtration rate is determined by the 2020 CKD-EPI equation recommended by the National Kidney Foundation (A Unifying Approach to GFR Estimation: Recommendations of the NKF-ASK Task Force on Reassessing the Inclusion of Race in Diagnosing Kidney Disease, JASN 2020). The CKD-EPI equation should not be used for patients with unstable renal function and has not been validated in children and those over 70. Current interpretive data was last reviewed 2021. Blood 04/01/2025 5:43 PM CDT 04/01/2025 6:33 PM CDT us Ruddy Garcia MD PhD LAB BLOOD ORDERABLES Fi nal Result Performing Organization Address [facility] Co de Phone Number [facility] Department [place] [address] * Magnesium (04/01/2025 5:43 PM CDT) Magnesium 2.1 1.4 - 2.5 mg/dL Blood 04/01/2025 5:43 PM CDT 04/01/2025 6:33 PM CDT Ruddy Garcia MD PhD LAB BLOOD ORDERABLES Fi nal Result Performing Organization Address City/[facility]/ZIP Co de Phone Number [facility] [employer] [place] [address] * Basic metabolic panel (04/01/2025 5:43 PM CDT) Sodium 142 135 - 145 mmol/L Potassium, pl 3.5 3.3 - 4.9 mmol/L [facility] Chloride 105 97 - 110 mmol/L [facility] CO2 28 22 - 32 mmol/L [facility] Anion gap 9 2 - 15 mmol/L [facility] BUN 15 6 - 25 mg/dL [facility] Creatinine 0.77 0.60 - 1.10 mg/dL [facility] Glucose 198 70 - 199 mg/dL [facility] Comment: Interpretive Data Fasting glucose >/= 126 mg/dl is diagnostic for diabetes. Fasting is defined as no caloric intake for at least 8 hours. Fasting glucose between 100 mg/dl to 125 mg/dl is diagnostic of prediabetes. In a patient with classic symptoms of hyperglycemia or hyperglycemic crisis, a random glucose >/= 200 mg/dl is diagnostic for diabetes. In the absence of unequivocal hyperglycemia, results should be confirmed by repeat testing. The classification and Diagnosis of Diabetes Diabetes Care 2021; 46: S19-S40. Current interpretive data was last revised 2022. Calcium 8.6 8.5 - 10.3 mg/dL [facility] Blood 04/01/2025 5:43 PM CDT 04/01/2025 6:33 PM CDT Ruddy Garcia MD PhD LAB BLOOD ORDERABLES Fi nal Result Performing Organization Address City/[facility]/ZIP Co de Phone Number [facility] Department [place] [employer] [place] [address] * POCT glucose (04/01/2025 5:08 PM CDT) Glucose, POC 193 70 - 199 mg/dL Blood 04/01/2025 5:08 PM CDT 04/01/2025 5:08 PM CDT us Julienne Ramon MD LAB POCT O RDERABLES - DEVICE Final Result [facility] Department [place] [address] * XR Chest 1 View (04/01/2025 3:24 PM CDT) Anatomical Region Laterality Modality Body, Chest N/A Digital Radiogra phy 04/01/2025 3:57 PM CDT Impressions 04/01/2025 3:58 PM CDT Comparison with 04/01/2025 6:16 AM. Transcatheter aortic valve replacement. Left internal jugular central venous catheter in the superior vena cava. Bilateral thoracostomy tubes in unchanged position. New small right apical pneumothorax. No left pneumothorax. Decreased small left pleural effusion. Mild bibasilar atelectasis. Stable cardiac and mediastinal silhouette. Dictated by: Rebekah Lopes MD The radiology attending physician has personally reviewed this study, and had reviewed and/or edited this written report and agrees with it. Electronically signed by: Ainl Rosales M.D. Narrative 04/01/2025 3:58 PM CDT EXAMINATION: 1 view chest radiograph Procedure Note Anil Rosales MD - 04/01/2025 EXAMINATION: 1 view chest radiograph IMPRESSION: Comparison with 04/01/2025 6:16 AM. Transcatheter aortic valve replacement. Left internal jugular central venous catheter in the superior vena cava. Bilateral thoracostomy tubes in unchanged position. New small right apical pneumothorax. No left pneumothorax. Decreased small left pleural effusion. Mild bibasilar atelectasis. Stable cardiac and mediastinal silhouette. Dictated by: Rebekah Lopes MD The radiology attending physician has personally reviewed this study, and had reviewed and/or edited this written report and agrees with it. Electronically signed by: Anil Rosales M.D. us Julienne Ramon MD IMG XR PRO CEDURES Final Result * POCT glucose (04/01/2025 11:41 AM CDT) Glucose, POC 161 70 - 199 mg/dL Blood 04/01/2025 11:4 1 AM CDT 04/01/2025 11:41 AM CDT us Julienne Ramon MD LAB POCT O RDERABLES - DEVICE Final Result Performing Organization Address [facility] Co de Phone Number [facility] [employer] [place] [address] * POCT glucose (04/01/2025 8:00 AM CDT) Glucose, POC 166 70 - 199 mg/dL Blood 04/01/2025 8:00 AM CDT 04/01/2025 8:00 AM CDT us Julienne Ramon MD LAB POCT O RDERABLES - DEVICE Final Result Performing Organization Address [facility] de Phone Number [facility] Department [place] [employer] [place] [address] * XR Chest 1 View (04/01/2025 6:55 AM CDT) Anatomical Region Laterality Modality Body, Chest N/A Computed Radiogr aphy 04/01/2025 9:02 AM CDT Impressions 04/01/2025 9:41 AM CDT Comparison with 03/31/2024. Left internal jugular central venous catheter at the confluence of the brachiocephalic veins. Transcatheter aortic valve replacement. Bilateral thoracostomy tubes in place. Mildly increased small left pleural effusion with partial left lower lobe collapse. Mild right basilar atelectasis. No pneumothorax. Stable cardiac mediastinal silhouette. Dictated by: Rebekah Lopes MD The radiology attending physician has personally reviewed this study, and had reviewed and/or edited this written report and agrees with it. Electronically signed by: Anil Rosales M.D. Narrative 04/01/2025 9:41 AM CDT EXAMINATION: 1 view chest radiograph Procedure Note Anil Rosales MD - 04/01/2025 EXAMINATION: 1 view chest radiograph IMPRESSION: Comparison with 03/31/2024. Left internal jugular central venous catheter at the confluence of the brachiocephalic veins. Transcatheter aortic valve replacement. Bilateral thoracostomy tubes in place. Mildly increased small left pleural effusion with partial left lower lobe collapse. Mild right basilar atelectasis. No pneumothorax. Stable cardiac mediastinal silhouette. Dictated by: Rebekah Lopes MD The radiology attending physician has personally reviewed this study, and had reviewed and/or edited this written report and agrees with it. Electronically signed by: Anil Rosales M.D. us Ruddy Garcia MD PhD IMG XR PROCEDURES Final Result * eGFR (04/01/2025 5:16 AM CDT) eGFR 80 >=60 mL/min/1. 73 m2 Comment: Interpretive Data Reference Interval Normal >/= 90 mL/min/1.73m2 Mildly decreased* 60 - 89 mL/min/1.73m2 Mildly to moderately decreased 45 - 59 mL/min/1.73m2 Moderately to severely decreased 30 - 44 mL/min/1.73m2 Severely decreased 15 - 29 mL/min/1.73m2 Kidney Failure < 15 mL/min/1.73m2 *Relative to young adult level Estimated glomerular filtration rate is determined by the 2020 CKD-EPI equation recommended by the National Kidney Foundation (A Unifying Approach to GFR Estimation: Recommendations of the NKF-ASK Task Force on Reassessing the Inclusion of Race in Diagnosing Kidney Disease, JASN 2020). The CKD-EPI equation should not be used for patients with unstable renal function and has not been validated in children and those over 70. Current interpretive data was last reviewed 2021. Blood 04/01/2025 5:16 AM CDT 04/01/2025 5:53 AM CDT us Ruddy Garcia MD PhD LAB BLOOD ORDERABLES Fi nal Result Performing Organization Address [facility] Co de Phone Number [facility] [place] [address] * (ABNORMAL) Calcium, ionized (04/01/2025 5:16 AM CDT) Pathologist [facility] Calcium, Ionized 4.45(L) 4.50 - 5.10 mg/dL Blood 04/01/2025 5:16 AM CDT 04/01/2025 5:45 AM CDT us Jeremiah Dalal MD LAB BLOOD ORDERABLES Final R esult Performing Organization Address [facility] Co de Phone Number [facility] [place] [address] * Lactate, whole blood (04/01/2025 5:16 AM CDT) [facility] Lactate, bld 1.3 0.7 - 2.0 mmol/L Blood 04/01/2025 5:16 AM CDT 04/01/2025 5:45 AM CDT us Ruddy Garcia MD PhD LAB BLOOD ORDERABLES Fi nal Result Performing Organization Address [facility] de Phone Number [facility] [place] [address] * (ABNORMAL) CBC without differential (04/01/2025 5:16 AM CDT) Pathologist [facility] WBC 8.20 3.80 - 9.90 K/cumm Hgb 11.0(L) 11.9 - 15.5 g/dL [facility] Hct 34.0(L) 35.6 - 45.5 % [facility] Plt 120(L) 150 - 400 K/cumm [facility] MPV 9.9 9.1 - 12.3 fL [facility] RBC 3.72(L) 3.90 - 5.20 M/cumm [facility] MCV 91.4 81.3 - 96.4 fL [facility] MCH 29.6 27.1 - 33.3 pg [facility] MCHC 32.4 32.3 - 35.7 g/dL [facility] RDW CV 14.8 11.1 - 14.9 % [facility] RDW SD 49.3(H) 35.7 - 48.1 fL [facility] NRBC abs 0.00 0.00 - 0.01 K/cumm [facility] Blood 04/01/2025 5:16 AM CDT 04/01/2025 5:53 AM CDT us Ruddy Garcia MD PhD LAB BLOOD ORDERABLES Fi nal Result Performing Organization Address [facility]/ZIP Co de Phone Number [facility] Department [place] [employer] [place] [address] * Type and screen (04/01/2025 5:16 AM CDT) Salazar, indirect Negative ABO Rh A Positive [facility] Blood 04/01/2025 5:16 AM CDT 04/01/2025 5:54 AM CDT Narrative [facility] - 04/01/2025 6:54 AM CDT Has the patient had Daratumumab or Isatuximab in the past 6 months?->Unknown us Jeremiah Dalal MD LAB BLOOD BANK TEST ORDERABL ES Final Result Performing Organization Address City/[facility]/ZIP Co de Phone Number [facility] Department [place] [employer] [place] [address] * (ABNORMAL) Phosphorus (04/01/2025 5:16 AM CDT) Phosphorus, pl 1.9(L) 2.3 - 4.5 mg/dL Blood 04/01/2025 5:16 AM CDT 04/01/2025 5:53 AM CDT us Jeremiah Dalal MD LAB BLOOD ORDERABLES Final R esult [facility] [place] [address] * Magnesium (04/01/2025 5:16 AM CDT) [facility] Magnesium 2.3 1.4 - 2.5 mg/dL Blood 04/01/2025 5:16 AM CDT 04/01/2025 5:53 AM CDT us Ruddy Garcia MD PhD LAB BLOOD ORDERABLES Fi nal Result Performing Organization Address [facility] Co de Phone Number [facility] [place] [address] * (ABNORMAL) Hepatic function panel (04/01/2025 5:16 AM CDT) [facility] Bilirubin, total 0.8 0.1 - 1.2 mg/dL Bilirubin, direct 0.3 0.1 - 0.3 mg/dL [facility] Protein, pl 6.1(L) 6.5 - 8.5 g/dL [facility] Albumin 2.9(L) 3.5 - 5.0 g/dL [facility] Alk phos 84 40 - 130 Units/L [facility] ALT 24 7 - 45 Units/L [facility] AST 20 10 - 45 Units/L [facility] Blood 04/01/2025 5:16 AM CDT 04/01/2025 5:53 AM CDT us Jeremiah Dalal MD LAB BLOOD ORDERABLES Final R esult Performing Organization Address City/[facility] Co de Phone Number [facility] [place] [address] * Basic metabolic panel (04/01/2025 5:16 AM CDT) [facility] Sodium 144 135 - 145 mmol/L Potassium, pl 3.8 3.3 - 4.9 mmol/L [facility] Chloride 107 97 - 110 mmol/L [facility] CO2 29 22 - 32 mmol/L [facility] Anion gap 8 2 - 15 mmol/L [facility] BUN 16 6 - 25 mg/dL [facility] Creatinine 0.78 0.60 - 1.10 mg/dL [facility] Glucose 195 70 - 199 mg/dL [facility] Comment: Interpretive Data Fasting glucose >/= 126 mg/dl is diagnostic for diabetes. Fasting is defined as no caloric intake for at least 8 hours. Fasting glucose between 100 mg/dl to 125 mg/dl is diagnostic of prediabetes. In a patient with classic symptoms of hyperglycemia or hyperglycemic crisis, a random glucose >/= 200 mg/dl is diagnostic for diabetes. In the absence of unequivocal hyperglycemia, results should be confirmed by repeat testing. The classification and Diagnosis of Diabetes Diabetes Care 2021; 46: S19-S40. Current interpretive data was last revised 2022. Calcium 8.7 8.5 - 10.3 mg/dL [facility] Blood 04/01/2025 5:16 AM CDT 04/01/2025 5:53 AM CDT us Ruddy Garcia MD PhD LAB BLOOD ORDERABLES Fi nal Result [facility] Department [place] [address] * (ABNORMAL) POCT glucose (03/31/2025 9:49 PM CDT) Glucose, POC 245(H) 70 - 199 mg/dL Blood 03/31/2025 9:49 PM CDT 03/31/2025 9:49 PM CDT us Julienne Ramon MD LAB POCT O RDERABLES - DEVICE Final Result [facility] [place] [address] * eGFR (03/31/2025 5:03 PM CDT) eGFR 67 >=60 mL/min/1. 73 m2 Comment: Interpretive Data Reference Interval Normal >/= 90 mL/min/1.73m2 Mildly decreased* 60 - 89 mL/min/1.73m2 Mildly to moderately decreased 45 - 59 mL/min/1.73m2 Moderately to severely decreased 30 - 44 mL/min/1.73m2 Severely decreased 15 - 29 mL/min/1.73m2 Kidney Failure < 15 mL/min/1.73m2 *Relative to young adult level Estimated glomerular filtration rate is determined by the 2020 CKD-EPI equation recommended by the National Kidney Foundation (A Unifying Approach to GFR Estimation: Recommendations of the NKF-ASK Task Force on Reassessing the Inclusion of Race in Diagnosing Kidney Disease, JASN 2020). The CKD-EPI equation should not be used for patients with unstable renal function and has not been validated in children and those over 70. Current interpretive data was last reviewed 2021. Blood 03/31/2025 5:03 PM CDT 03/31/2025 5:41 PM CDT Ruddy Garcia MD PhD LAB BLOOD ORDERABLES Fi nal Result Performing Organization Address City/[facility]/[place] [address] * Magnesium (03/31/2025 5:03 PM CDT) Pathologist [facility] Magnesium 2.2 1.4 - 2.5 mg/dL Blood 03/31/2025 5:03 PM CDT 03/31/2025 5:41 PM CDT Ruddy Garcia MD PhD LAB BLOOD ORDERABLES Fi nal Result [facility] [employer] [place] [address] * (ABNORMAL) Basic metabolic panel (03/31/2025 5:03 PM CDT) Pathologist [facility] Sodium 145 135 - 145 mmol/L Potassium, pl 3.9 3.3 - 4.9 mmol/L [facility] Chloride 106 97 - 110 mmol/L [facility] CO2 30 22 - 32 mmol/L [facility] Anion gap 9 2 - 15 mmol/L [facility] BUN 20 6 - 25 mg/dL [facility] Creatinine 0.91 0.60 - 1.10 mg/dL [facility] Glucose 216(H) 70 - 199 mg/dL [facility] Comment: Interpretive Data Fasting glucose >/= 126 mg/dl is diagnostic for diabetes. Fasting is defined as no caloric intake for at least 8 hours. Fasting glucose between 100 mg/dl to 125 mg/dl is diagnostic of prediabetes. In a patient with classic symptoms of hyperglycemia or hyperglycemic crisis, a random glucose >/= 200 mg/dl is diagnostic for diabetes. In the absence of unequivocal hyperglycemia, results should be confirmed by repeat testing. The classification and Diagnosis of Diabetes Diabetes Care 202; 46: S19-S40. Current interpretive data was last revised 2022. Calcium 8.2(L) 8.5 - 10.3 mg/dL [facility] Blood 03/31/2025 5:03 PM CDT 03/31/2025 5:41 PM CDT us Ruddy Garcia MD PhD LAB BLOOD ORDERABLES Fi nal Result [facility] Department [place] [address] * (ABNORMAL) POCT glucose (03/31/2025 4:36 PM CDT) Pathologist [facility] Glucose, POC 226(H) 70 - 199 mg/dL Blood 03/31/2025 4:36 PM CDT 03/31/2025 4:36 PM CDT us Julienne Ramon MD LAB POCT O RDERABLES - DEVICE Final Result Performing Organization Address City/[facility] Co de Phone Number [facility] [place] [address] * POCT glucose (03/31/2025 11:53 AM CDT) Glucose, POC 175 70 - 199 mg/dL Blood 03/31/2025 11:5 3 AM CDT 03/31/2025 11:53 AM CDT Julienne Ramon MD LAB POCT O RDERABLES - DEVICE Final Result Performing Organization Address [facility] Co de Phone Number CHARIS [facility] [place] [address] * POCT glucose (03/31/2025 8:35 AM CDT) Glucose, POC 193 70 - 199 mg/dL Blood 03/31/2025 8:35 AM CDT 03/31/2025 8:35 AM CDT Julienne Ramon MD LAB POCT O RDERABLES - DEVICE Final Result Performing Organization Address City/[facility] Co de Phone Number [facility] [place] [address] * XR Chest 1 View (03/31/2025 6:32 AM CDT) Anatomical Region Laterality Modality Body, Chest N/A Computed Radiogr aphy 03/31/2025 8:22 AM CDT Impressions 03/31/2025 8:22 AM CDT Comparison to 03/30/2025. Enteric tube has been removed in the interval. Left IJ CVC with tip over the SVC. Bilateral chest tubes. Heart and mediastinum are unchanged status post transcatheter aortic valve replacement. There are small bilateral pleural effusions. Bibasilar lung opacities, likely partial atelectasis. No pneumothorax seen. Electronically signed by: Sonny Hogue M.D. Narrative 03/31/2025 8:22 AM CDT EXAMINATION: 1 view chest radiograph Procedure Note Sonny Hogue MD - 03/31/2025 EXAMINATION: 1 view chest radiograph IMPRESSION: Comparison to 03/30/2025. Enteric tube has been removed in the interval. Left IJ CVC with tip over the SVC. Bilateral chest tubes. Heart and mediastinum are unchanged status post transcatheter aortic valve replacement. There are small bilateral pleural effusions. Bibasilar lung opacities, likely partial atelectasis. No pneumothorax seen. Electronically signed by: Sonny Hogue M.D. us Ruddy Garcia MD PhD IMG XR PROCEDURES Final Result * (ABNORMAL) eGFR (03/31/2025 5:12 AM CDT) eGFR 56(L) >=60 mL/min/1. 73 m2 Comment: Interpretive Data Reference Interval Normal >/= 90 mL/min/1.73m2 Mildly decreased* 60 - 89 mL/min/1.73m2 Mildly to moderately decreased 45 - 59 mL/min/1.73m2 Moderately to severely decreased 30 - 44 mL/min/1.73m2 Severely decreased 15 - 29 mL/min/1.73m2 Kidney Failure < 15 mL/min/1.73m2 *Relative to young adult level Estimated glomerular filtration rate is determined by the 2020 CKD-EPI equation recommended by the National Kidney Foundation (A Unifying Approach to GFR Estimation: Recommendations of the NKF-ASK Task Force on Reassessing the Inclusion of Race in Diagnosing Kidney Disease, JASN 202). The CKD-EPI equation should not be used for patients with unstable renal function and has not been validated in children and those over 70. Current interpretive data was last reviewed 2021. Blood 03/31/2025 5:12 AM CDT 03/31/2025 5:54 AM CDT us Ruddy Garcia MD PhD LAB BLOOD ORDERABLES Fi nal Result Performing Organization Address [facility] Co de Phone Number [facility] [place] [employer] [place] [address] * (ABNORMAL) Calcium, ionized (03/31/2025 5:12 AM CDT) Pathologist [facility] Calcium, Ionized 4.35(L) 4.50 - 5.10 mg/dL Blood 03/31/2025 5:12 AM CDT 03/31/2025 5:51 AM CDT us Jeremiah Dalal MD LAB BLOOD ORDERABLES Final R esult Performing Organization Address [facility] Co de Phone Number [facility] [place] [address] * Lactate, whole blood (03/31/2025 5:12 AM CDT) [facility] Lactate, bld 1.4 0.7 - 2.0 mmol/L Blood 03/31/2025 5:12 AM CDT 03/31/2025 5:52 AM CDT us Ruddy Garcia MD PhD LAB BLOOD ORDERABLES Fi nal Result Performing Organization Address [facility] Co de Phone Number [facility] [place] [address] * (ABNORMAL) CBC without differential (03/31/2025 5:12 AM CDT) [facility] WBC 8.38 3.80 - 9.90 K/cumm Hgb 10.6(L) 11.9 - 15.5 g/dL [facility] Hct 32.7(L) 35.6 - 45.5 % [facility] Plt 87(L) 150 - 400 K/cumm [facility] MPV 10.8 9.1 - 12.3 fL [facility] RBC 3.55(L) 3.90 - 5.20 M/cumm [facility] MCV 92.1 81.3 - 96.4 fL [facility] MCH 29.9 27.1 - 33.3 pg [facility] MCHC 32.4 32.3 - 35.7 g/dL [facility] RDW CV 15.5(H) 11.1 - 14.9 % [facility] RDW SD 52.7(H) 35.7 - 48.1 fL [facility] NRBC abs 0.00 0.00 - 0.01 K/cumm [facility] Blood 03/31/2025 5:12 AM CDT 03/31/2025 5:56 AM CDT Ruddy Garcia MD PhD LAB BLOOD ORDERABLES Fi nal Result Performing Organization Address City/[facility] Co de Phone Number [facility] Department [place] [address] * Phosphorus (03/31/2025 5:12 AM CDT) Phosphorus, pl 2.8 2.3 - 4.5 mg/dL Blood 03/31/2025 5:12 AM CDT 03/31/2025 5:54 AM CDT us Jeremiah Dalal MD LAB BLOOD ORDERABLES Final R esult Performing Organization Address [facility] Co de Phone Number [facility] Department [place] [address] * Magnesium (03/31/2025 5:12 AM CDT) Magnesium 2.1 1.4 - 2.5 mg/dL Blood 03/31/2025 5:12 AM CDT 03/31/2025 5:54 AM CDT Ruddy Garcia MD PhD LAB BLOOD ORDERABLES Fi nal Result Performing Organization Address City/[facility] Co de Phone Number [facility] Department [place] [address] * (ABNORMAL) Hepatic function panel (03/31/2025 5:12 AM CDT) [facility] Bilirubin, total 0.8 0.1 - 1.2 mg/dL Bilirubin, direct 0.3 0.1 - 0.3 mg/dL [facility] Protein, pl 5.8(L) 6.5 - 8.5 g/dL [facility] Albumin 3.0(L) 3.5 - 5.0 g/dL [facility] Alk phos 81 40 - 130 Units/L [facility] ALT 33 7 - 45 Units/L [facility] AST 20 10 - 45 Units/L [facility] Blood 03/31/2025 5:12 AM CDT 03/31/2025 5:54 AM CDT Jeremiah Dalal MD LAB BLOOD ORDERABLES Final R esult [facility] Department [place] [address] * (ABNORMAL) Basic metabolic panel (03/31/2025 5:12 AM CDT) [facility] Sodium 146(H) 135 - 145 mmol/L Potassium, pl 4.1 3.3 - 4.9 mmol/L [facility] Chloride 107 97 - 110 mmol/L [facility] CO2 33(H) 22 - 32 mmol/L [facility] Anion gap 6 2 - 15 mmol/L [facility] BUN 22 6 - 25 mg/dL [facility] Creatinine 1.05 0.60 - 1.10 mg/dL [facility] Glucose 166 70 - 199 mg/dL [facility] Comment: Interpretive Data Fasting glucose >/= 126 mg/dl is diagnostic for diabetes. Fasting is defined as no caloric intake for at least 8 hours. Fasting glucose between 100 mg/dl to 125 mg/dl is diagnostic of prediabetes. In a patient with classic symptoms of hyperglycemia or hyperglycemic crisis, a random glucose >/= 200 mg/dl is diagnostic for diabetes. In the absence of unequivocal hyperglycemia, results should be confirmed by repeat testing. The classification and Diagnosis of Diabetes Diabetes Care 2021; 46: S19-S40. Current interpretive data was last revised 2022. Calcium 8.0(L) 8.5 - 10.3 mg/dL [facility] Blood 03/31/2025 5:12 AM CDT 03/31/2025 5:54 AM CDT us Ruddy Garcia MD PhD LAB BLOOD ORDERABLES Fi nal Result Performing Organization Address [facility]/ZIP Co de Phone Number [facility] Department [place] [address] * POCT glucose (03/30/2025 10:07 PM CDT) Glucose, POC 165 70 - 199 mg/dL Blood 03/30/2025 10:0 7 PM CDT 03/30/2025 10:07 PM CDT us Armando Rangel MD LAB POCT ORDERABLES - DEV ICE Final Result Performing Organization Address [facility] Co de Phone Number [facility] Department [place] [address] * (ABNORMAL) eGFR (03/30/2025 4:48 PM CDT) eGFR 49(L) >=60 mL/min/1. 73 m2 Comment: Interpretive Data Reference Interval Normal >/= 90 mL/min/1.73m2 Mildly decreased* 60 - 89 mL/min/1.73m2 Mildly to moderately decreased 45 - 59 mL/min/1.73m2 Moderately to severely decreased 30 - 44 mL/min/1.73m2 Severely decreased 15 - 29 mL/min/1.73m2 Kidney Failure < 15 mL/min/1.73m2 *Relative to young adult level Estimated glomerular filtration rate is determined by the 2020 CKD-EPI equation recommended by the National Kidney Foundation (A Unifying Approach to GFR Estimation: Recommendations of the NKF-ASK Task Force on Reassessing the Inclusion of Race in Diagnosing Kidney Disease, JASN 202). The CKD-EPI equation should not be used for patients with unstable renal function and has not been validated in children and those over 70. Current interpretive data was last reviewed 2021. Blood 03/30/2025 4:48 PM CDT 03/30/2025 5:07 PM CDT Ruddy Garcia MD PhD LAB BLOOD ORDERABLES Fi nal Result Performing Organization Address City/[facility] Co de Phone Number [facility] [place] [employer] [place] [address] * Magnesium (03/30/2025 4:48 PM CDT) Pathologist [facility] Magnesium 2.1 1.4 - 2.5 mg/dL Blood 03/30/2025 4:48 PM CDT 03/30/2025 5:07 PM CDT Ruddy Garcia MD PhD LAB BLOOD ORDERABLES Fi nal Result Performing Organization Address [facility] de Phone Number [facility] [place] [address] * (ABNORMAL) Basic metabolic panel (03/30/2025 4:48 PM CDT) Sodium 146(H) 135 - 145 mmol/L Potassium, pl 4.0 3.3 - 4.9 mmol/L [facility] Chloride 106 97 - 110 mmol/L [facility] CO2 32 22 - 32 mmol/L [facility] Anion gap 8 2 - 15 mmol/L [facility] BUN 25 6 - 25 mg/dL [facility] Creatinine 1.17(H) 0.60 - 1.10 mg/dL [facility] Glucose 143 70 - 199 mg/dL [facility] Comment: Interpretive Data Fasting glucose >/= 126 mg/dl is diagnostic for diabetes. Fasting is defined as no caloric intake for at least 8 hours. Fasting glucose between 100 mg/dl to 125 mg/dl is diagnostic of prediabetes. In a patient with classic symptoms of hyperglycemia or hyperglycemic crisis, a random glucose >/= 200 mg/dl is diagnostic for diabetes. In the absence of unequivocal hyperglycemia, results should be confirmed by repeat testing. The classification and Diagnosis of Diabetes Diabetes Care 2021; 46: S19-S40. Current interpretive data was last revised 2022. Calcium 8.1(L) 8.5 - 10.3 mg/dL [facility] Blood 03/30/2025 4:48 PM CDT 03/30/2025 5:07 PM CDT Ruddy Garcia MD PhD LAB BLOOD ORDERABLES Fi nal Result Performing Organization Address City/[facility] Co de Phone Number [facility] Department [place] [address] * POCT glucose (03/30/2025 4:05 PM CDT) Glucose, POC 142 70 - 199 mg/dL Blood 03/30/2025 4:05 PM CDT 03/30/2025 4:05 PM CDT Ruddy Garcia MD PhD LAB POCT ORDERABLES - D EVICE Final Result Performing Organization Address [facility] Co de Phone Number [facility] Department [place] [address] * POCT glucose (03/30/2025 12:09 PM CDT) Glucose, POC 153 70 - 199 mg/dL Blood 03/30/2025 12:0 9 PM CDT 03/30/2025 12:09 PM CDT Ruddy Garcia MD PhD LAB POCT ORDERABLES - D EVICE Final Result Performing Organization Address [facility] Co de Phone Number [facility] [place] [address] * MANAGER BUSINESS [employer]INUITY Evaluate and Treat Clinical Swallow (03/30/2025 11:45 AM CDT) Narrative Xochitl Mendiola, MANAGER BUSINESS CONTINUITY - 03/30/2025 11:45 AM CDT Xochitl Mendiola, MANAGER BUSINESS CONTINUITY 03/30/2025 12:36 PM Speech-Language Pathology: Clinical Bedside Swallow HPI/PMH Pt is a 74 yo F admitted with aortic stenosis, S/P TAVR. PMHx for severe aortic stenosis, CAD s/p PTCA stenting. Pt with afib, HTN, CKD3 who underwent TAVR on 03/25/25 at [facility] complicated by external iliac bleed activating MTP and requiring transfer to [facility] for IR intervention. Respiratory/Intubation Status: intubated 03/26-03/29, 2LNC Imaging: CXR 03/30: Unchanged moderate bibasilar atelectasis. Trace bilateral pleural effusions. No pneumothorax. Head CT 03/28: No acute intracranial process. Precautions: Fall Current Diet Order: NPO with NGT Baseline Diet: reg/reg diet per pt report General Information Gregg Lau Obi 03/30/25 General Observations: Pt is sitting upright in bed at 90*, agreeable to ST Pain Score: 5 - Moderate pain If pain >4, was RN notified? N/A Patient Stated Goal/Comments: none stated Clinical Impression & Professional Recommendations Diet Solids Recommendation: Regular Diet Liquids Recommendations: Thin/regular Recommended Form of Medications: As tolerated Compensatory Strategies/Modifications: Small bites, Slow rate, Single sips Postural Recommendations: Upright 90 degrees Assistance with feeding/swallowing: Assist with aggressive oral hygiene prior to po Specialty Instructions: (Please assist pt with oral care 2-3 times a day, including teeth brushing (gums and tongue) to improve the oral biome and reduce the risk of aspiration related complications (i.e., PNA) Dysphagia Diagnosis: No suspected dysphagia, oral-pharyngeal function appears WFL Overall Clinical Impression/Additional Information: Pt was placed upright in bed with daughter Cindy present at the bedside. Pt awake, alert and agreeable to ST. Oral [facility] exam is WFL, natural dentition. Pt states she eats a reg/reg diet at baseline, takes multiple meds whole at a time with sips of thins. Pt with no hx of dysphagia. Pt was given ice chips, tsp sips of thin liquids, bites of puree and bites of regular solids. Pt with low volume voice quality noted however when asked to increase volume, pt able to do so. Pt with no overt s/sx of aspiration across all trials given, including large consecutive straw drinking of thin liquids. Assessment Details & Results Consistencies Administered: Ice chips, Thin liquids, Purees, Solids MASA: Sadler Assessment of Swallowing Ability (MASA) Alertness: Alert Cooperation: Cooperative Auditory Comprehension: No abnormality detected Respiration: Chest clear Respiratory Rate (for swallow): Able to control breath rate for swallow Aphasia: No abnormality detected Apraxia: No abnormality detected Dysarthria: No abnormality detected Saliva: No abnormality detected Lip Seal: No abnormality detected Tongue Movement: Full range of motion Tongue Strength: No abnormality detected Tongue Coordination: No abnormality detected Gag: No gag (DNT) Palate: No abnormality detected Cough Reflex: No deficit noted Voluntary Cough: No abnormality detected Voice: No abnormality detected Trach: No trach Oral Preparation: No deficits noted Bolus Clearance: Fully cleared Oral Transit: No deficits noted Pharyngeal Phase: Immediate laryngeal elevation Pharyngeal Response: No deficits noted MASA Score: 196 Plan MANAGER BUSINESS [employer]INUITY Frequency of Services during current admission: Discharge from this Service MANAGER BUSINESS [employer]INU[employer] Recommendation (Add'l Services): No further MANAGER BUSINESS [employer]INUITY indicated Further Assessment/Follow up Indicated: Next Visit Plan:No further ST warranted Additional Referrals: none Please reference care plan for treatment goals, if indicated. Discharge Summary Statement If this is the last swallow therapy visit, this serves as the discharge summary. Jeremiah Dalal MD MANAGER BUSINESS CONTINUITY ORDERABLES Final Result * MANAGER [employer] Evaluation and Treatment (03/30/2025 11:45 AM CDT) Narrative Xochitl Mendiola MANAGER BUSINESS CONTINUITY - 03/30/2025 11:45 AM CDT Xochitl Mendiola SLP 03/30/2025 12:36 PM Speech-Language Pathology: Clinical Bedside Swallow HPI/PMH Pt is a 74 yo F admitted with aortic stenosis, S/P TAVR. PMHx for severe aortic stenosis, CAD s/p PTCA stenting. Pt with afib, HTN, CKD3 who underwent TAVR on 03/25/25 at [facility] complicated by external iliac bleed activating MTP and requiring transfer to [facility] for IR intervention. Respiratory/Intubation Status: intubated 03/26-03/29, 2LNC Imaging: CXR 03/30: Unchanged moderate bibasilar atelectasis. Trace bilateral pleural effusions. No pneumothorax. Head CT 03/28: No acute intracranial process. Precautions: Fall Current Diet Order: NPO with NGT Baseline Diet: reg/reg diet per pt report General Information Gregg Crocker 03/30/25 General Observations: Pt is sitting upright in bed at 90*, agreeable to ST Pain Score: 5 - Moderate pain If pain >4, was RN notified? N/A Patient Stated Goal/Comments: none stated Clinical Impression & Professional Recommendations Diet Solids Recommendation: Regular Diet Liquids Recommendations: Thin/regular Recommended Form of Medications: As tolerated Compensatory Strategies/Modifications: Small bites, Slow rate, Single sips Postural Recommendations: Upright 90 degrees Assistance with feeding/swallowing: Assist with aggressive oral hygiene prior to po Specialty Instructions: (Please assist pt with oral care 2-3 times a day, including teeth brushing (gums and tongue) to improve the oral biome and reduce the risk of aspiration related complications (i.e., PNA) Dysphagia Diagnosis: No suspected dysphagia, oral-pharyngeal function appears WFL Overall Clinical Impression/Additional Information: Pt was placed upright in bed with daughter Cindy present at the bedside. Pt awake, alert and agreeable to ST. Oral [facility] exam is WFL, natural dentition. Pt states she eats a reg/reg diet at baseline, takes multiple meds whole at a time with sips of thins. Pt with no hx of dysphagia. Pt was given ice chips, tsp sips of thin liquids, bites of puree and bites of regular solids. Pt with low volume voice quality noted however when asked to increase volume, pt able to do so. Pt with no overt s/sx of aspiration across all trials given, including large consecutive straw drinking of thin liquids. Assessment Details & Results Consistencies Administered: Ice chips, Thin liquids, Purees, Solids MASA: Sadler Assessment of Swallowing Ability (MASA) Alertness: Alert Cooperation: Cooperative Auditory Comprehension: No abnormality detected Respiration: Chest clear Respiratory Rate (for swallow): Able to control breath rate for swallow Aphasia: No abnormality detected Apraxia: No abnormality detected Dysarthria: No abnormality detected Saliva: No abnormality detected Lip Seal: No abnormality detected Tongue Movement: Full range of motion Tongue Strength: No abnormality detected Tongue Coordination: No abnormality detected Gag: No gag (DNT) Palate: No abnormality detected Cough Reflex: No deficit noted Voluntary Cough: No abnormality detected Voice: No abnormality detected Trach: No trach Oral Preparation: No deficits noted Bolus Clearance: Fully cleared Oral Transit: No deficits noted Pharyngeal Phase: Immediate laryngeal elevation Pharyngeal Response: No deficits noted MASA Score: 196 Plan MANAGER BUSINESS CONTINUITY Frequency of Services during current admission: Discharge from this Service MANAGER [employer]INU[employer] Recommendation (Add'l Services): No further MANAGER BUSINESS [employer]INUITY indicated Further Assessment/Follow up Indicated: Next Visit Plan:No further ST warranted Additional Referrals: none Please reference care plan for treatment goals, if indicated. Discharge Summary Statement If this is the last swallow therapy visit, this serves as the discharge summary. us Jeremiah Dalal MD MANAGER BUSINESS CONTINUITY ORDERABLES Final Result * XR Chest 1 View (03/30/2025 11:44 AM CDT) Anatomical Region Laterality Modality Body, Chest N/A Computed Radiogr aphy 03/30/2025 3:13 PM CDT Impressions 03/30/2025 3:13 PM CDT Comparison to 03/29/2025. Interval extubation. Right IJ CVC with tip over the SVC. Left IJ CVC with tip over the SVC. Bilateral chest tubes. Heart and mediastinum are unchanged status post transcatheter aortic valve replacement. Improved aeration in the left lung base, likely decreased effusion and atelectasis. There are some mild bibasilar atelectasis which persists. No pneumothorax seen. Electronically signed by: Sonny Hogue M.D. Narrative 03/30/2025 3:13 PM CDT EXAMINATION: 1 view chest radiograph Procedure Note Sonny Hogue MD - 03/30/2025 EXAMINATION: 1 view chest radiograph IMPRESSION: Comparison to 03/29/2025. Interval extubation. Right IJ CVC with tip over the SVC. Left IJ CVC with tip over the SVC. Bilateral chest tubes. Heart and mediastinum are unchanged status post transcatheter aortic valve replacement. Improved aeration in the left lung base, likely decreased effusion and atelectasis. There are some mild bibasilar atelectasis which persists. No pneumothorax seen. Electronically signed by: Sonny Hogue M.D. us Ruddy Garcia MD PhD IMG XR PROCEDURES Final Result * POCT glucose (03/30/2025 11:13 AM CDT) Glucose, POC 141 70 - 199 mg/dL Blood 03/30/2025 11:1 3 AM CDT 03/30/2025 11:13 AM CDT us Ruddy Garcia MD PhD LAB POCT ORDERABLES - D EVICE Final Result Performing Organization Address [facility] Co de Phone Number [facility] [place] [address] * POCT glucose (03/30/2025 8:39 AM CDT) Glucose, POC 106 70 - 199 mg/dL Blood 03/30/2025 8:39 AM CDT 03/30/2025 8:39 AM CDT us Ruddy Garcia MD PhD LAB POCT ORDERABLES - D EVICE Final Result Performing Organization Address [facility] Co de Phone Number [facility] [employer] [place] [address] * POCT glucose (03/30/2025 8:13 AM CDT) Glucose, POC 115 70 - 199 mg/dL Blood 03/30/2025 8:13 AM CDT 03/30/2025 8:13 AM CDT us Jeremiah Dalal MD LAB POCT ORDERABLES - DEVICE Final Result Performing Organization Address City/[facility] Co de Phone Number [facility] [employer] [place] [address] * Oxyhemoglobin, central venous (03/30/2025 5:07 AM CDT) Oxyhemoglobin, CV 80.4 % Comment: Interpretive Data No reference range established. Current interpretive data was last revised 2020. Blood 03/30/2025 5:07 AM CDT 03/30/2025 5:17 AM CDT Jeremiah Dalal MD LAB BLOOD ORDERABLES Final R esult Performing Organization Address [facility] Co de Phone Number [facility] [place] [address] * (ABNORMAL) eGFR (03/30/2025 5:07 AM CDT) Pathologist [facility] eGFR 45(L) >=60 mL/min/1. 73 m2 Comment: Interpretive Data Reference Interval Normal >/= 90 mL/min/1.73m2 Mildly decreased* 60 - 89 mL/min/1.73m2 Mildly to moderately decreased 45 - 59 mL/min/1.73m2 Moderately to severely decreased 30 - 44 mL/min/1.73m2 Severely decreased 15 - 29 mL/min/1.73m2 Kidney Failure < 15 mL/min/1.73m2 *Relative to young adult level Estimated glomerular filtration rate is determined by the 2020 CKD-EPI equation recommended by the National Kidney Foundation (A Unifying Approach to GFR Estimation: Recommendations of the NKF-ASK Task Force on Reassessing the Inclusion of Race in Diagnosing Kidney Disease, JASN 2020). The CKD-EPI equation should not be used for patients with unstable renal function and has not been validated in children and those over 70. Current interpretive data was last reviewed 2021. Blood 03/30/2025 5:07 AM CDT 03/30/2025 5:26 AM CDT Jeremiah Dalal MD LAB BLOOD ORDERABLES Final R esult Performing Organization Address City/[facility] Co de Phone Number [facility] Department [place] [address] * (ABNORMAL) Differential, auto (03/30/2025 5:07 AM CDT) Neutrophil abs 8.41(H) 1.50 - 6.50 K/cumm Imm gran abs 0.12(H) 0.00 - 0.10 K/cumm [facility] Lymphocyte abs 0.70(L) 0.80 - 3.30 K/cumm [facility] Monocyte abs 0.68 0.20 - 0.80 K/cumm [facility] Eosinophil abs 0.04 0.00 - 0.50 K/cumm [facility] Basophil abs 0.03 0.00 - 0.10 K/cumm [facility] Neutrophil pct 84.3 % [facility] Comment: Interpretive Data Percent cell count reference ranges are not reported, since discordance with absolute values may lead to misinterpretation of CBC data. Current Interpretive Data was last revised on 2018. Imm gran pct 1.2 % [facility] Comment: Interpretive Data Percent cell count reference ranges are not reported, since discordance with absolute values may lead to misinterpretation of CBC data. Current Interpretive Data was last revised on 2018. Lymphocyte pct 7.0 % [facility] Comment: Interpretive Data Percent cell count reference ranges are not reported, since discordance with absolute values may lead to misinterpretation of CBC data. Current Interpretive Data was last revised on 2018. Monocyte pct 6.8 % [facility] Comment: Interpretive Data Percent cell count reference ranges are not reported, since discordance with absolute values may lead to misinterpretation of CBC data. Current Interpretive Data was last revised on 2018. Eosinophil pct 0.4 % [facility] Comment: Interpretive Data Percent cell count reference ranges are not reported, since discordance with absolute values may lead to misinterpretation of CBC data. Current Interpretive Data was last revised on 2018. Basophil pct 0.3 % [facility] Comment: Interpretive Data Percent cell count reference ranges are not reported, since discordance with absolute values may lead to misinterpretation of CBC data. Current Interpretive Data was last revised on 2018. Blood 03/30/2025 5:07 AM CDT 03/30/2025 5:26 AM CDT us Jeremiah Dalal MD LAB BLOOD ORDERABLES Final R esult [facility] Department [place] [address] * Calcium, ionized (03/30/2025 5:07 AM CDT) [facility] Calcium, Ionized 4.54 4.50 - 5.10 mg/dL Blood 03/30/2025 5:07 AM CDT 03/30/2025 5:17 AM CDT us Jeremiah Dalal MD LAB BLOOD ORDERABLES Final R ult Performing Organization Address City/[facility] Co de Phone Number [facility] [place] [address] * (ABNORMAL) CBC with auto differential (03/30/2025 5:07 AM CDT) [facility] WBC 9.98(H) 3.80 - 9.90 K/cumm Hgb 10.8(L) 11.9 - 15.5 g/dL [facility] Hct 32.7(L) 35.6 - 45.5 % [facility] Plt 72(L) 150 - 400 K/cumm [facility] MPV 10.5 9.1 - 12.3 fL [facility] RBC 3.59(L) 3.90 - 5.20 M/cumm [facility] MCV 91.1 81.3 - 96.4 fL [facility] MCH 30.1 27.1 - 33.3 pg [facility] MCHC 33.0 32.3 - 35.7 g/dL [facility] RDW CV 15.6(H) 11.1 - 14.9 % [facility] RDW SD 52.3(H) 35.7 - 48.1 fL [facility] NRBC abs 0.00 0.00 - 0.01 K/cumm [facility] Blood 03/30/2025 5:07 AM CDT 03/30/2025 5:26 AM CDT Jeremiah Dalal MD LAB BLOOD ORDERABLES Final R esult Performing Organization Address [facility] Co de Phone Number [facility] [place] [address] * Lactate, whole blood (03/30/2025 5:07 AM CDT) Lactate, bld 1.1 0.7 - 2.0 mmol/L Blood 03/30/2025 5:07 AM CDT 03/30/2025 5:17 AM CDT us Jeremiah Dalal MD LAB BLOOD ORDERABLES Final R esult Performing Organization Address [facility] Co de Phone Number [facility] Department [place] [address] * (ABNORMAL) Phosphorus (03/30/2025 5:07 AM CDT) Phosphorus, pl 2.2(L) 2.3 - 4.5 mg/dL Blood 03/30/2025 5:07 AM CDT 03/30/2025 5:26 AM CDT Jeremiah Dalal MD LAB BLOOD ORDERABLES Final R esult Performing Organization Address City/[facility] Co de Phone Number [facility] [place] [address] * Magnesium (03/30/2025 5:07 AM CDT) Magnesium 2.3 1.4 - 2.5 mg/dL Blood 03/30/2025 5:07 AM CDT 03/30/2025 5:26 AM CDT Jeremiah Dalal MD LAB BLOOD ORDERABLES Final R esult Performing Organization Address City/[facility]/ZIP Co de Phone Number [facility] [place] [address] * (ABNORMAL) Hepatic function panel (03/30/2025 5:07 AM CDT) Pathologist [facility] Bilirubin, total 0.9 0.1 - 1.2 mg/dL Bilirubin, direct 0.3 0.1 - 0.3 mg/dL [facility] Protein, pl 5.7(L) 6.5 - 8.5 g/dL [facility] Albumin 2.6(L) 3.5 - 5.0 g/dL [facility] Alk phos 84 40 - 130 Units/L [facility] ALT 49(H) 7 - 45 Units/L [facility] AST 29 10 - 45 Units/L [facility] Blood 03/30/2025 5:07 AM CDT 03/30/2025 5:26 AM CDT Jeremiah Dalal MD LAB BLOOD ORDERABLES Final R esult Performing Organization Address [facility] Co de Phone Number [facility] Department [place] [address] * (ABNORMAL) Basic metabolic panel (03/30/2025 5:07 AM CDT) Sodium 148(H) 135 - 145 mmol/L Potassium, pl 3.8 3.3 - 4.9 mmol/L [facility] Chloride 110 97 - 110 mmol/L [facility] CO2 31 22 - 32 mmol/L [facility] Anion gap 7 2 - 15 mmol/L [facility] BUN 26(H) 6 - 25 mg/dL [facility] Creatinine 1.26(H) 0.60 - 1.10 mg/dL [facility] Glucose 101 70 - 199 mg/dL [facility] Comment: Interpretive Data Fasting glucose >/= 126 mg/dl is diagnostic for diabetes. Fasting is defined as no caloric intake for at least 8 hours. Fasting glucose between 100 mg/dl to 125 mg/dl is diagnostic of prediabetes. In a patient with classic symptoms of hyperglycemia or hyperglycemic crisis, a random glucose >/= 200 mg/dl is diagnostic for diabetes. In the absence of unequivocal hyperglycemia, results should be confirmed by repeat testing. The classification and Diagnosis of Diabetes Diabetes Care 2021; 46: S19-S40. Current interpretive data was last revised 2022. Calcium 8.0(L) 8.5 - 10.3 mg/dL [facility] Blood 03/30/2025 5:07 AM CDT 03/30/2025 5:26 AM CDT us Jeremiah Dalal MD LAB BLOOD ORDERABLES Final R esult Performing Organization Address [facility] Co de Phone Number [facility] [place] [address] * POCT glucose (03/30/2025 5:04 AM CDT) Glucose, POC 103 70 - 199 mg/dL Blood 03/30/2025 5:04 AM CDT 03/30/2025 5:04 AM CDT us Jeremiah Dalal MD LAB POCT ORDERABLES - DEVICE Final Result Performing Organization Address [facility] Co de Phone Number [facility] Department [place] [address] * POCT glucose (03/30/2025 12:05 AM CDT) Glucose, POC 152 70 - 199 mg/dL Blood 03/30/2025 12:0 5 AM CDT 03/30/2025 12:05 AM CDT Jeremiah Dalal MD LAB POCT ORDERABLES - DEVICE Final Result Performing Organization Address [facility] Co de Phone Number [facility] Department [place] [address] * C. difficile testing Stool (03/29/2025 8:29 PM CDT) [facility] Result Negative Negative Toxin Result Negative Negative [facility] C. diff result Negative, free toxin Negative, free toxin [facility] C. diff interp Negative for toxigenic Clostridioides (Clostridium) difficile. Analysis was performed using a glutamate dehydrogenase antigen detection assay combined with a C. difficile toxin detection assay. [facility] Stool 03/29/2025 8:29 PM CDT 03/29/2025 8:39 PM CDT Narrative [facility] - 03/29/2025 10:52 PM CDT Testing for C. difficile is not recommended within 4 days of a negative result, 10 days of a positive, or 24 hours after laxative administration. If this order is clinically indicated, contact the lab and enter the passcode to complete this order.->[id number] us Jeremiah Dalal MD LAB MICROBIOLOGY - GENERAL O MICHELLEERAPATTIE Final Result Performing Organization Address City/[facility]/ZIP Co de Phone Number [facility] Department [place] [address] * Infection Prevention VRE Culture Stool (03/29/2025 8:28 PM CDT) Report Final Report: Negative Stool 03/29/2025 8:28 PM CDT 03/29/2025 11:06 PM CDT Narrative [facility] - 04/01/2025 1:24 AM CDT Surveillance culture for Infection Prevention purposes only; results indicate colonization, not infection requiring treatment. Testing performed by [facility] ([phone]). us Jeremiah Dalal MD LAB MICROBIOLOGY - GENERAL O RDERABLES Final Result [place] [address] * POCT glucose (03/29/2025 8:19 PM CDT) Glucose, POC 190 70 - 199 mg/dL Blood 03/29/2025 8:19 PM CDT 03/29/2025 8:19 PM CDT us Jeremiah Dalal MD LAB POCT ORDERABLES - DEVICE Final Result Performing Organization Address [facility] Co de Phone Number [facility] [place] [address] * Oxyhemoglobin, central venous (03/29/2025 4:04 PM CDT) Pathologist [facility] Oxyhemoglobin, CV 77.0 % Comment: Interpretive Data No reference range established. Current interpretive data was last revised 2020. Blood 03/29/2025 4:04 PM CDT 03/29/2025 4:15 PM CDT us Jeremiah Dalal MD LAB BLOOD ORDERABLES Final R esult Performing Organization Address [facility] Co de Phone Number [facility] [place] [address] * (ABNORMAL) eGFR (03/29/2025 4:04 PM CDT) eGFR 42(L) >=60 mL/min/1. 73 m2 Comment: Interpretive Data Reference Interval Normal >/= 90 mL/min/1.73m2 Mildly decreased* 60 - 89 mL/min/1.73m2 Mildly to moderately decreased 45 - 59 mL/min/1.73m2 Moderately to severely decreased 30 - 44 mL/min/1.73m2 Severely decreased 15 - 29 mL/min/1.73m2 Kidney Failure < 15 mL/min/1.73m2 *Relative to young adult level Estimated glomerular filtration rate is determined by the 2020 CKD-EPI equation recommended by the National Kidney Foundation (A Unifying Approach to GFR Estimation: Recommendations of the NKF-ASK Task Force on Reassessing the Inclusion of Race in Diagnosing Kidney Disease, JASN 2020). The CKD-EPI equation should not be used for patients with unstable renal function and has not been validated in children and those over 70. Current interpretive data was last reviewed 2021. Blood 03/29/2025 4:04 PM CDT 03/29/2025 4:19 PM CDT Jeremiah Dalal MD LAB BLOOD ORDERABLES Final R esult Performing Organization Address City/[facility] Co de Phone Number [facility] [place] [address] * Lactate, whole blood (03/29/2025 4:04 PM CDT) Lactate, bld 1.5 0.7 - 2.0 mmol/L Blood 03/29/2025 4:04 PM CDT 03/29/2025 4:15 PM CDT us Jeremiah Dalal MD LAB BLOOD ORDERABLES Final R esult Performing Organization Address [facility] [place] [address] * Magnesium (03/29/2025 4:04 PM CDT) Magnesium 2.5 1.4 - 2.5 mg/dL Blood 03/29/2025 4:04 PM CDT 03/29/2025 4:19 PM CDT Jeremiah Dalal MD LAB BLOOD ORDERABLES Final R esult Performing Organization Address [facility] Co de Phone Number [facility] [employer] [place] [address] * (ABNORMAL) Basic metabolic panel (03/29/2025 4:04 PM CDT) Sodium 148(H) 135 - 145 mmol/L Potassium, pl 4.0 3.3 - 4.9 mmol/L [facility] Chloride 112(H) 97 - 110 mmol/L [facility] CO2 29 22 - 32 mmol/L [facility] Anion gap 7 2 - 15 mmol/L [facility] BUN 29(H) 6 - 25 mg/dL [facility] Creatinine 1.35(H) 0.60 - 1.10 mg/dL [facility] Glucose 155 70 - 199 mg/dL [facility] Comment: Interpretive Data Fasting glucose >/= 126 mg/dl is diagnostic for diabetes. Fasting is defined as no caloric intake for at least 8 hours. Fasting glucose between 100 mg/dl to 125 mg/dl is diagnostic of prediabetes. In a patient with classic symptoms of hyperglycemia or hyperglycemic crisis, a random glucose >/= 200 mg/dl is diagnostic for diabetes. In the absence of unequivocal hyperglycemia, results should be confirmed by repeat testing. The classification and Diagnosis of Diabetes Diabetes Care 2021; 46: S19-S40. Current interpretive data was last revised 2022. Calcium 8.5 8.5 - 10.3 mg/dL [facility] Blood 03/29/2025 4:04 PM CDT 03/29/2025 4:19 PM CDT Jeremiah Dalal MD LAB BLOOD ORDERABLES Final R esult Performing Organization Address [facility] Co de Phone Number [facility] Department [place] [address] * POCT glucose (03/29/2025 3:56 PM CDT) [facility] Signature Glucose, POC 169 70 - 199 mg/dL Blood 03/29/2025 3:56 PM CDT 03/29/2025 3:56 PM CDT Jeremiah Dalal MD LAB POCT ORDERABLES - DEVICE Final Result Performing Organization Address [facility]/ZIP Co de Phone Number [facility] Department [place] [address] * Infection Prevention Krystal auris PCR, surveillance Axilla/Groin (03/29/2025 12:41 PM CDT) Pathologist [facility] Krystal auris DNA Not Detected Not Detected [facility] Comment: Interpretive Data Testing performed by [facility] using the Florentin pawel 6800 Krystal auris assay. This assay detects DNA from Krystal auris using Real-Time PCR. This assay is laboratory developed and is not cleared by the [facility] Food and Drug Administration. The performance characteristics have been verified by the [facility]. Axilla/Groin 03/29/2025 12:4 1 PM CDT 03/29/2025 1:04 PM CDT Narrative [facility] - 03/30/2025 2:16 AM CDT Order placed by [facility] due to ring surveillance. us Instant Order Generic Provider LAB MICROBIOLOGY - GENERAL ORDERABLES Final Result [facility] Department [place] [address] [facility] * (ABNORMAL) Differential, auto (03/29/2025 12:41 PM CDT) Pathologist [facility] Neutrophil abs 8.57(H) 1.50 - 6.50 K/cumm Imm gran abs 0.11(H) 0.00 - 0.10 K/cumm [facility] Lymphocyte abs 0.48(L) 0.80 - 3.30 K/cumm [facility] Monocyte abs 0.64 0.20 - 0.80 K/cumm [facility] Eosinophil abs 0.00 0.00 - 0.50 K/cumm [facility] Basophil abs 0.02 0.00 - 0.10 K/cumm [facility] Neutrophil pct 87.3 % [facility] Comment: Interpretive Data Percent cell count reference ranges are not reported, since discordance with absolute values may lead to misinterpretation of CBC data. Current Interpretive Data was last revised on 2018. Imm gran pct 1.1 % [facility] Comment: Interpretive Data Percent cell count reference ranges are not reported, since discordance with absolute values may lead to misinterpretation of CBC data. Current Interpretive Data was last revised on 2018. Lymphocyte pct 4.9 % [facility] Comment: Interpretive Data Percent cell count reference ranges are not reported, since discordance with absolute values may lead to misinterpretation of CBC data. Current Interpretive Data was last revised on 2018. Monocyte pct 6.5 % [facility] Comment: Interpretive Data Percent cell count reference ranges are not reported, since discordance with absolute values may lead to misinterpretation of CBC data. Current Interpretive Data was last revised on 2018. Eosinophil pct 0.0 % [facility] Comment: Interpretive Data Percent cell count reference ranges are not reported, since discordance with absolute values may lead to misinterpretation of CBC data. Current Interpretive Data was last revised on 2018. Basophil pct 0.2 % [facility] Comment: Interpretive Data Percent cell count reference ranges are not reported, since discordance with absolute values may lead to misinterpretation of CBC data. Current Interpretive Data was last revised on 2018. Blood 03/29/2025 12:4 1 PM CDT 03/29/2025 1:07 PM CDT Jeremiah Dalal MD LAB BLOOD ORDERABLES Final R esult [facility] Department [place] [address] * (ABNORMAL) CBC with auto differential (03/29/2025 12:41 PM CDT) WBC 9.82 3.80 - 9.90 K/cumm Hgb 10.4(L) 11.9 - 15.5 g/dL [facility] Hct 30.6(L) 35.6 - 45.5 % [facility] Plt 60(L) 150 - 400 K/cumm [facility] MPV 11.4 9.1 - 12.3 fL [facility] RBC 3.47(L) 3.90 - 5.20 M/cumm [facility] MCV 88.2 81.3 - 96.4 fL [facility] MCH 30.0 27.1 - 33.3 pg [facility] MCHC 34.0 32.3 - 35.7 g/dL [facility] RDW CV 15.9(H) 11.1 - 14.9 % [facility] RDW SD 51.6(H) 35.7 - 48.1 fL [facility] NRBC abs 0.00 0.00 - 0.01 K/cumm [facility] Blood 03/29/2025 12:4 1 PM CDT 03/29/2025 1:07 PM CDT us Jeremiah Dalal MD LAB BLOOD ORDERABLES Final R esult Performing Organization Address City/[facility] Co de Phone Number [facility] Department [place] [address] * (ABNORMAL) POCT glucose (03/29/2025 11:22 AM CDT) [facility] Glucose, POC 219(H) 70 - 199 mg/dL Comment:Glu2: RN/MD Notified Glucose comment 1 Glu2: RN/MD Notified [facility] Blood 03/29/2025 11:2 2 AM CDT 03/29/2025 11:22 AM CDT us Jeremiah Dalal MD LAB POCT ORDERABLES - DEVICE Final Result Performing Organization Address [facility] Co de Phone Number [facility] [place] [address] * TRANSTHORACIC ECHO (TTE) COMPLETE W DOPPLER/CF W CONTRAST (03/29/2025 8:42 AM CDT) [facility] EF Mod BP 76 % CONS SCIMAGE Anatomical Region Laterality Modality Ultrasound 03/29/2025 7:59 AM CDT Narrative 03/29/2025 10:57 AM CDT [facility] [place] [address] Transthoracic Echocardiographic Report Patient Name: GREGG CROCKER L : 1950 (74y 9m) Gender: F Study Date: 03/29/2025 07:59:45 Ht(Inch): 69 Wt(Lb): 233.91 BSA: 2.27 [employer] Laborer: Roxanne Head [facility] Location: [id number] Order Provider: JEREMIAH DALAL Heart Rate: 72 BMI: 34.54 BP: 108 / 51 Ref Provider: JEREMIAH DALAL PROCEDURES: Echocardiographic Report: Transthoracic complete echo with contrast, 2D, spectral and tissue Doppler, color flow Doppler, M-mode. Contrast: Contrast Enhancement was Employed: After initial imaging due to sub- optimal quality related to co-morbidity defined by patient's body habitus and due to suboptimal image quality with inadequate visualization of at least 2 of 16 LV wall segments in any view after initial imaging. Perflutren contrast was administered using the volume necessary to obtain adequate images. 1.5 ml Optison Administered, (1.5 ml wasted). Technically difficult study due to: Poor acoustic windows. Limited visualization of some cardiac structures precludes the ability to obtain complete measurements - INDICATIONS: Cardiac arrest. CONCLUSIONS: 1. Technically difficult study with very limited two-dimensional imaging. 2. Normal left ventricular size based on volume index. Concentric LV remodeling. There is hyperdynamic left ventricular systolic function. The Ejection Fraction (Barnes's) is measured at 76 %. Grade I diastolic dysfunction (normal LA pressure). Unable to assess global longitudinal strain due to image quality. No left ventricular thrombus visualized. 3. Asymmetric septal hypertrophy is present (Septal thickness >= 1.5 cm and septal:posterior wall ratio >= 1.5. Consider hypertrophic cardiomyopathy). 4. Normal right ventricular size. Mild right ventricular hypokinesis. 5. No significant valvular pathology identified with Doppler imaging only. 6. No pericardial effusion. ATTESTATION: I have personally reviewed and interpreted this study without fellow or resident. - DISCLAIMER: The study images and the final report will be retained in the patient chart by the Echo Laboratory for the legally required time period. This chart constitutes the legal record of any testing performed. FINDINGS: Left Ventricle: Normal left ventricular size based on volume index. Concentric LV remodeling. There is hyperdynamic left ventricular systolic function. The Ejection Fraction (Barnes's) is measured at 76 %. Grade I diastolic dysfunction (normal LA pressure). Unable to assess global longitudinal strain due to image quality. No left ventricular thrombus visualized. Hypertrophic Cardiomyopathy: Asymmetric septal hypertrophy is present (Septal thickness >= 1.5 cm and septal:posterior wall ratio >= 1.5. Consider hypertrophic cardiomyopathy). Right Ventricle: Normal right ventricular size. Mild right ventricular hypokinesis. Right Ventricular strain is inadequate for interpretation. Left Atrium: Mildly dilated left atrium. Right Atrium: The right atrium is normal in size. Mitral Valve: Mitral valve is not well visualized due to poor acoustic windows. No mitral regurgitation. No stenosis present. Aortic Valve: Aortic valve not well visualized due to poor acoustic windows. No aortic regurgitation. No aortic valve stenosis. Mild aortic valve stenosis. The mean transaortic gradient is 10 mmHg. The aortic valve area by the continuity equation (using VTI) is 1.52 cm2. Aortic valve dimensionless index is 0.47. Tricuspid Valve: Tricuspid valve is not well visualized due to poor acoustic windows. No tricuspid regurgitation. No tricuspid valve stenosis. Pulmonic Valve: The pulmonic valve is not well visualized due to poor acoustic windows. No pulmonic regurgitation. No pulmonic valve stenosis present. Pericardium: Normal pericardium without pericardial effusion. MEASUREMENTS: 2D/MM Value Range Doppler Value Range LVIDd 2D 3.41 cm [ 3.80 - 5.20 ] AV Peak Chivo 2.0 m/s [ 1.0 - 1.7 ] LVIDs 2D 1.48 cm [ 2.20 - 3.50 ] AV Peak PG 16.00 mmHg IVSd 2D 1.73 cm [ 0.60 - 0.90 ] AV Mean PG 10 mmHg LVPWd 2D 1.16 cm [ 0.60 - 0.90 ] AV VTI 42.9 cm LV Thickness Ratio 1.5 LVOT Peak Chivo 1.0 m/s [ 0.7 - 1.1 ] LV FS 2D 56.71 % [ 27.00 - 45.00 ] LVOT Peak PG 4.00 mmHg LV Mass 2D 176.92 g LVOT Mean PG 2 mmHg LV Mass Index 2D 77.94 g/m2 LVOT VTI 20.1 cm RWT 0.68 LVOT Diam 2.03 cm EDV Mod BP 77.37 ml [ 46.00 - 106.00 ] YOVANY VTI 1.52 cm2 LV EDV Index 34.08 ml/m2 LVOT/AV VTI 0.47 - Dimensionless index (DVI) ESV Mod BP 18.57 ml [ 14.00 - 42.00 ] MV E Peak Chivo 0.9 m/s [ 0.6 - 1.3 ] EF Mod BP 76 % [ 54 - 74 ] MV A Peak Chivo 1.1 m/s [ 1.0 - 1.2 ] LA Length 4C 6.15 cm MV E/A 0.8 ratio [ 0.8 - 1.5 ] LA Length 2C 6.24 cm MV Decel Time 231.34 msec [ 104.00 - 258.00 ] LA Volume BP 83.49 ml Med E` Chivo 5.6 cm/sec [ 8.0 - 25.0 ] LA Volume Index 36.78 ml/m2 [ 16.00 - 34.00 ] Lat E` Chivo 9.1 cm/sec [ 10.0 - 25.0 ] RV Base Dimen 2D 3.5 cm [ 2.5 - 4.2 ] Average E/E` 12.24 TAPSE 1.39 cm [ 1.71 - 5.00 ] RV S` 7.99 cm/sec RA Volume 38.43 ml PV Peak Chivo 0.7 m/s [ 0.4 - 0.8 ] RA Volume Index 16.93 ml/m2 PV Peak PG 1.96 mmHg Electronically Signed By: Huber Cedeno MD 03/29/2025 10:56:09 CDT CC: Jeremiah Dalal MD Procedure Note Huber Cedeno MD - 03/29/2025 [facility] [place] [address] Transthoracic Echocardiographic Report Patient Name: GREGG CROCKER L : 1950 (74y 9m) Gender: F Study Date: 03/29/2025 07:59:45 Ht(Inch): 69 Wt(Lb): 233.91 BSA: 2.27 [employer] Laborer: Roxanne Head RDCS [facility] Location: [id number] OrderProvider: JEREMIAH DALAL Heart Rate: 72 BMI: 34.54 BP: 108 / 51 Ref Provider: JEREMIAH DALAL PROCEDURES: Echocardiographic Report: Transthoracic complete echo with contrast, 2D,spectral and tissue Doppler, color flow Doppler, M-mode. Contrast: Contrast Enhancement was Employed: After initial imaging due tosub- optimal quality related to co-morbidity defined by patient's body habitus and dueto suboptimal image quality with inadequate visualization of at least 2 of 16 LV wallsegments in any view after initial imaging. Perflutren contrast was administered using thevolume necessary to obtain adequate images. 1.5 ml Optison Administered, (1.5 mlwasted). Technically difficult study due to: Poor acoustic windows. Limitedvisualization of some cardiac structures precludes the ability to obtain complete measurements - INDICATIONS: Cardiac arrest. CONCLUSIONS: 1. Technically difficult study with very limited two-dimensionalimaging. 2. Normal left ventricular size based on volume index. Concentric LVremodeling. There is hyperdynamic left ventricular systolic function. The Ejection Fraction(Barnes's) is measured at 76 %. Grade I diastolic dysfunction (normal LA pressure).Unable to assess global longitudinal strain due to image quality. No left ventricularthrombus visualized. 3. Asymmetric septal hypertrophy is present (Septal thickness >= 1.5 cmand septal:posterior wall ratio >= 1.5. Consider hypertrophiccardiomyopathy). 4. Normal right ventricular size. Mild right ventricular hypokinesis. 5. No significant valvular pathology identified with Doppler imagingonly. 6. No pericardial effusion. ATTESTATION: I have personally reviewed and interpreted this study without fellow orresident. - DISCLAIMER: The study images and the final report will be retained in the patientchart by the Echo Laboratory for the legally required time period. This chart constitutesthe legal record of any testing performed. FINDINGS: Left Ventricle: Normal left ventricular size based on volume index.Concentric LV remodeling. There is hyperdynamic left ventricular systolic function. TheEjection Fraction (Barnes's) is measured at 76 %. Grade I diastolic dysfunction(normal LA pressure). Unable to assess global longitudinal strain due to imagequality. No left ventricular thrombus visualized. Hypertrophic Cardiomyopathy: Asymmetric septal hypertrophy is present(Septal thickness >= 1.5 cm and septal:posterior wall ratio >= 1.5. Consider hypertrophiccardiomyopathy). Right Ventricle: Normal right ventricular size. Mild right ventricularhypokinesis. Right Ventricular strain is inadequate for interpretation. Left Atrium: Mildly dilated left atrium. Right Atrium: The right atrium is normal in size. Mitral Valve: Mitral valve is not well visualized due to poor acousticwindows. No mitral regurgitation. No stenosis present. Aortic Valve: Aortic valve not well visualized due to poor acousticwindows. No aortic regurgitation. No aortic valve stenosis. Mild aortic valve stenosis. Themean transaortic gradient is 10 mmHg. The aortic valve area by the continuity equation(using VTI) is 1.52 cm2. Aortic valve dimensionless index is 0.47. Tricuspid Valve: Tricuspid valve is not well visualized due to pooracoustic windows. No tricuspid regurgitation. No tricuspid valve stenosis. Pulmonic Valve: The pulmonic valve is not well visualized due to pooracoustic windows. No pulmonic regurgitation. No pulmonic valve stenosis present. Pericardium: Normal pericardium without pericardial effusion. MEASUREMENTS: 2D/MM Value Range DopplerValue Range LVIDd 2D 3.41 cm [ 3.80 - 5.20 ] AV Peak Vel2.0 m/s [ 1.0 - 1.7 ] LVIDs 2D 1.48 cm [ 2.20 - 3.50 ] AV Peak PG16.00 mmHg IVSd 2D 1.73 cm [ 0.60 - 0.90 ] AV Mean PG10 mmHg LVPWd 2D 1.16 cm [ 0.60 - 0.90 ] AV VTI42.9 cm LV Thickness Ratio 1.5 LVOT Peak Vel1.0 m/s [ 0.7 - 1.1 ] LV FS 2D 56.71 % [ 27.00 - 45.00 ] LVOT Peak PG4.00 mmHg LV Mass 2D 176.92 g LVOT Mean PG2 mmHg LV Mass Index 2D 77.94 g/m2 LVOT VTI20.1 cm RWT 0.68 LVOT Diam2.03 cm EDV Mod BP 77.37 ml [ 46.00 - 106.00 ] YOVANY VTI1.52 cm2 LV EDV Index 34.08 ml/m2 LVOT/AV VTI0.47 - Dimensionless index (DVI) ESV Mod BP 18.57 ml [ 14.00 - 42.00 ] MV E Peak Vel0.9 m/s [ 0.6 - 1.3 ] EF Mod BP 76 % [ 54 - 74 ] MV A Peak Vel1.1 m/s [ 1.0 - 1.2 ] LA Length 4C 6.15 cm MV E/A0.8 ratio [ 0.8 - 1.5 ] LA Length 2C 6.24 cm MV Decel Dfyo074.34 msec [ 104.00 - 258.00 ] LA Volume BP 83.49 ml Med E` Vel5.6 cm/sec [ 8.0 - 25.0 ] LA Volume Index 36.78 ml/m2 [ 16.00 - 34.00 ] Lat E` Vel9.1 cm/sec [ 10.0 - 25.0 ] RV Base Dimen 2D 3.5 cm [ 2.5 - 4.2 ] Average E/E`12.24 TAPSE 1.39 cm [ 1.71 - 5.00 ] RV S`7.99 cm/sec RA Volume 38.43 ml PV Peak Vel0.7 m/s [ 0.4 - 0.8 ] RA Volume Index 16.93 ml/m2 PV Peak PG1.96 mmHg Electronically Signed By: Huber Cedeno MD 03/29/2025 10:56:09 CDT CC: Jeremiah Dalal MD Jeremiah Dalal MD CV ECHO PROCEDURES Final Res ult * (ABNORMAL) POCT glucose (03/29/2025 8:02 AM CDT) Glucose, POC 217(H) 70 - 199 mg/dL Comment:Glu2: RN/MD Notified Glucose comment 1 Glu2: RN/MD Notified [facility] Blood 03/29/2025 8:02 AM CDT 03/29/2025 8:02 AM CDT Jeremiah Dalal MD LAB POCT ORDERABLES - DEVICE Final Result [facility] Department [place] [address] * XR Chest 1 View (03/29/2025 6:11 AM CDT) Anatomical Region Laterality Modality Body, Chest N/A Digital Radiogra phy 03/29/2025 8:28 AM CDT Impressions 03/29/2025 8:42 AM CDT Comparison with 03/28/2025. An endotracheal tube is approximately 3.5 centimeters above the sanford. Transcatheter aortic valve replacement. Feeding tube courses below the left hemidiaphragm. Left internal jugular central venous catheter in the superior vena cava. Right internal jugular sheath in place. Bilateral thoracostomy tubes in place. Unchanged moderate bibasilar atelectasis. Trace bilateral pleural effusions. No pneumothorax. Stable enlarged cardiac silhouette. Dictated by: Rebekah Lopes MD The radiology attending physician has personally reviewed this study, and had reviewed and/or edited this written report and agrees with it. Electronically signed by: Solange Trinidad M.D. Narrative 03/29/2025 8:42 AM CDT EXAMINATION: 1 view chest radiograph Procedure Note Solange Trinidad MD - 03/29/2025 EXAMINATION: 1 view chest radiograph IMPRESSION: Comparison with 03/28/2025. An endotracheal tube is approximately 3.5 centimeters above the sanford. Transcatheter aortic valve replacement. Feeding tube courses below the left hemidiaphragm. Left internal jugular central venous catheter in the superior vena cava. Right internal jugular sheath in place. Bilateral thoracostomy tubes in place. Unchanged moderate bibasilar atelectasis. Trace bilateral pleural effusions. No pneumothorax. Stable enlarged cardiac silhouette. Dictated by: Rebekah Lopes MD The radiology attending physician has personally reviewed this study, and had reviewed and/or edited this written report and agrees with it. Electronically signed by: Solange Trinidad M.D. us Jeremiah Dalal MD IMG XR PROCEDURES Final Resu lt * Oxyhemoglobin, central venous (03/29/2025 4:28 AM CDT) Pathologist [facility] Oxyhemoglobin, CV 80.0 % Comment: Interpretive Data No reference range established. Current interpretive data was last revised 2020. Blood 03/29/2025 4:28 AM CDT 03/29/2025 4:37 AM CDT us Jeremiah Dalal MD LAB BLOOD ORDERABLES Final R esult [facility] Department of Laboratories [place], [place] [id number] * (ABNORMAL) eGFR (03/29/2025 4:28 AM CDT) eGFR 46(L) >=60 mL/min/1. 73 m2 Comment: Interpretive Data Reference Interval Normal >/= 90 mL/min/1.73m2 Mildly decreased* 60 - 89 mL/min/1.73m2 Mildly to moderately decreased 45 - 59 mL/min/1.73m2 Moderately to severely decreased 30 - 44 mL/min/1.73m2 Severely decreased 15 - 29 mL/min/1.73m2 Kidney Failure < 15 mL/min/1.73m2 *Relative to young adult level Estimated glomerular filtration rate is determined by the 2020 CKD-EPI equation recommended by the National Kidney Foundation (A Unifying Approach to GFR Estimation: Recommendations of the NKF-ASK Task Force on Reassessing the Inclusion of Race in Diagnosing Kidney Disease, JASN 202). The CKD-EPI equation should not be used for patients with unstable renal function and has not been validated in children and those over 70. Current interpretive data was last reviewed 2021. Blood 03/29/2025 4:28 AM CDT 03/29/2025 4:42 AM CDT us Jeremiah Dalal MD LAB BLOOD ORDERABLES Final R esult [facility] Department [place] [address] * (ABNORMAL) Differential, auto (03/29/2025 4:28 AM CDT) Neutrophil abs 7.71(H) 1.50 - 6.50 K/cumm Imm gran abs 0.06 0.00 - 0.10 K/cumm [facility] Lymphocyte abs 0.23(L) 0.80 - 3.30 K/cumm [facility] Monocyte abs 0.60 0.20 - 0.80 K/cumm [facility] Eosinophil abs 0.00 0.00 - 0.50 K/cumm [facility] Basophil abs 0.02 0.00 - 0.10 K/cumm [facility] Neutrophil pct 89.4 % [facility] Comment: Interpretive Data Percent cell count reference ranges are not reported, since discordance with absolute values may lead to misinterpretation of CBC data. Current Interpretive Data was last revised on 2018. Imm gran pct 0.7 % [facility] Comment: Interpretive Data Percent cell count reference ranges are not reported, since discordance with absolute values may lead to misinterpretation of CBC data. Current Interpretive Data was last revised on 2018. Lymphocyte pct 2.7 % [facility] Comment: Interpretive Data Percent cell count reference ranges are not reported, since discordance with absolute values may lead to misinterpretation of CBC data. Current Interpretive Data was last revised on 2018. Monocyte pct 7.0 % [facility] Comment: Interpretive Data Percent cell count reference ranges are not reported, since discordance with absolute values may lead to misinterpretation of CBC data. Current Interpretive Data was last revised on 2018. Eosinophil pct 0.0 % [facility] Comment: Interpretive Data Percent cell count reference ranges are not reported, since discordance with absolute values may lead to misinterpretation of CBC data. Current Interpretive Data was last revised on 2018. Basophil pct 0.2 % [facility] Comment: Interpretive Data Percent cell count reference ranges are not reported, since discordance with absolute values may lead to misinterpretation of CBC data. Current Interpretive Data was last revised on 2018. Blood 03/29/2025 4:28 AM CDT 03/29/2025 4:43 AM CDT us Jeremiah Dalal MD LAB BLOOD ORDERABLES Final R esult Performing Organization Address City/[facility]/ZIP Co de Phone Number [facility] [place] [address] * Calcium, ionized (03/29/2025 4:28 AM CDT) Calcium, Ionized 4.53 4.50 - 5.10 mg/dL Blood 03/29/2025 4:28 AM CDT 03/29/2025 4:39 AM CDT Jeremiah Dalal MD LAB BLOOD ORDERABLES Final R esult Performing Organization Address City/[facility]/ZIP Co de Phone Number [facility] Department [place] [address] * (ABNORMAL) CBC with auto differential (03/29/2025 4:28 AM CDT) [facility] WBC 8.62 3.80 - 9.90 K/cumm Hgb 10.7(L) 11.9 - 15.5 g/dL [facility] Hct 31.4(L) 35.6 - 45.5 % [facility] Plt 58(L) 150 - 400 K/cumm [facility] MPV 10.9 9.1 - 12.3 fL [facility] RBC 3.54(L) 3.90 - 5.20 M/cumm [facility] MCV 88.7 81.3 - 96.4 fL [facility] MCH 30.2 27.1 - 33.3 pg [facility] MCHC 34.1 32.3 - 35.7 g/dL [facility] RDW CV 15.8(H) 11.1 - 14.9 % [facility] RDW SD 51.3(H) 35.7 - 48.1 fL [facility] NRBC abs 0.00 0.00 - 0.01 K/cumm [facility] Blood 03/29/2025 4:28 AM CDT 03/29/2025 4:43 AM CDT us Jeremiah Dalal MD LAB BLOOD ORDERABLES Final R esult Performing Organization Address [facility]/ZIP Co de Phone Number [facility] Department [place] [address] * Lactate, whole blood (03/29/2025 4:28 AM CDT) [facility] Lactate, bld 1.5 0.7 - 2.0 mmol/L Blood 03/29/2025 4:28 AM CDT 03/29/2025 4:37 AM CDT Jeremiah Dalal MD LAB BLOOD ORDERABLES Final R esult Performing Organization Address City/[facility]/ZIP Co de Phone Number [place] [address] * Type and screen (03/29/2025 4:28 AM CDT) Salazar, indirect Negative ABO Rh A Positive [facility] Blood 03/29/2025 4:28 AM CDT 03/29/2025 4:43 AM CDT Narrative [facility] - 03/29/2025 5:42 AM CDT Has the patient had Daratumumab or Isatuximab in the past 6 months?->Unknown Jeremiah Dalal MD LAB BLOOD BANK TEST ORDERABL ES Final Result Performing Organization Address [facility] [place] [place] [address] * Phosphorus (03/29/2025 4:28 AM CDT) Pathologist [facility] Phosphorus, pl 2.7 2.3 - 4.5 mg/dL Blood 03/29/2025 4:28 AM CDT 03/29/2025 4:37 AM CDT us Jeremiah Dalal MD LAB BLOOD ORDERABLES Final R esult Performing Organization Address City/[facility] [place] [place] [address] * (ABNORMAL) Magnesium (03/29/2025 4:28 AM CDT) Pathologist [facility] Magnesium 2.6(H) 1.4 - 2.5 mg/dL Blood 03/29/2025 4:28 AM CDT 03/29/2025 4:37 AM CDT Jeremiah Dalal MD LAB BLOOD ORDERABLES Final R esult Performing Organization Address [facility] Co de Phone Number [facility] [place] [address] * (ABNORMAL) Blood gas, arterial (03/29/2025 4:28 AM CDT) pH, Art 7.45 7.35 - 7.45 PCO2, Arterial 38 35 - 45 mmHg [facility] PO2, Arterial 157(H) 83 - 108 mmHg [facility] HCO3 Art (Calculated) 27 20 - 30 mmol/L [facility] BE, art 2 mmol/L [facility] Comment: Interpretive Data No Reference Range Established Current Interpretive Data was last revised on 2017 O2 Sat Art (Measured) 98(H) 90 - 95 % [facility] Blood 03/29/2025 4:28 AM CDT 03/29/2025 4:37 AM CDT us Jeremiah Dalal MD LAB BLOOD ORDERABLES Final R esult [facility] Department [place] [address] * (ABNORMAL) Hepatic function panel (03/29/2025 4:28 AM CDT) Bilirubin, total 0.4 0.1 - 1.2 mg/dL Bilirubin, direct 0.2 0.1 - 0.3 mg/dL [facility] Protein, pl 5.4(L) 6.5 - 8.5 g/dL [facility] Albumin 2.4(L) 3.5 - 5.0 g/dL [facility] Alk phos 84 40 - 130 Units/L [facility] ALT 59(H) 7 - 45 Units/L [facility] AST 41 10 - 45 Units/L [facility] Blood 03/29/2025 4:28 AM CDT 03/29/2025 4:37 AM CDT us Jeremiah Dalal MD LAB BLOOD ORDERABLES Final R esult [facility] Department [place] [address] * (ABNORMAL) Basic metabolic panel (03/29/2025 4:28 AM CDT) Sodium 145 135 - 145 mmol/L Potassium, pl 4.6 3.3 - 4.9 mmol/L [facility] Chloride 112(H) 97 - 110 mmol/L [facility] CO2 25 22 - 32 mmol/L [facility] Anion gap 8 2 - 15 mmol/L [facility] BUN 25 6 - 25 mg/dL [facility] Creatinine 1.23(H) 0.60 - 1.10 mg/dL [facility] Glucose 238(H) 70 - 199 mg/dL [facility] Comment: Interpretive Data Fasting glucose >/= 126 mg/dl is diagnostic for diabetes. Fasting is defined as no caloric intake for at least 8 hours. Fasting glucose between 100 mg/dl to 125 mg/dl is diagnostic of prediabetes. In a patient with classic symptoms of hyperglycemia or hyperglycemic crisis, a random glucose >/= 200 mg/dl is diagnostic for diabetes. In the absence of unequivocal hyperglycemia, results should be confirmed by repeat testing. The classification and Diagnosis of Diabetes Diabetes Care 2021; 46: S19-S40. Current interpretive data was last revised 2022. Calcium 8.5 8.5 - 10.3 mg/dL [facility] Blood 03/29/2025 4:28 AM CDT 03/29/2025 4:37 AM CDT Jeremiah Dalal MD LAB BLOOD ORDERABLES Final R esult [facility] Department [place] [address] * (ABNORMAL) POCT glucose (03/29/2025 4:22 AM CDT) Glucose, POC 250(H) 70 - 199 mg/dL Blood 03/29/2025 4:22 AM CDT 03/29/2025 4:22 AM CDT us Jeremiah aDlal MD LAB POCT ORDERABLES - DEVICE Final Result Performing Organization Address [facility] Co de Phone Number [facility] [place] [address] * (ABNORMAL) POCT glucose (03/29/2025 12:34 AM CDT) Glucose, POC 204(H) 70 - 199 mg/dL Blood 03/29/2025 12:3 4 AM CDT 03/29/2025 12:34 AM CDT us Jeremiah Dalal MD LAB POCT ORDERABLES - DEVICE Final Result Performing Organization Address [facility] de Phone Number [facility] [place] [address] * (ABNORMAL) POCT glucose (03/28/2025 9:17 PM CDT) Glucose, POC 205(H) 70 - 199 mg/dL Blood 03/28/2025 9:17 PM CDT 03/28/2025 9:17 PM CDT us Jeremiah Dalal MD LAB POCT ORDERABLES - DEVICE Final Result Performing Organization Address [facility] de Phone Number [facility] Department [place] [address] * Lactate, whole blood (03/28/2025 8:47 PM CDT) Lactate, bld 1.1 0.7 - 2.0 mmol/L Blood 03/28/2025 8:47 PM CDT 03/28/2025 9:02 PM CDT us Jeremiah Dalal MD LAB BLOOD ORDERABLES Final R esult Performing Organization Address City/[facility] Co de Phone Number [facility] Department [place] [address] * (ABNORMAL) Blood gas, arterial (03/28/2025 8:47 PM CDT) pH, Art 7.47(H) 7.35 - 7.45 PCO2, Arterial 36 35 - 45 mmHg [facility] PO2, Arterial 172(H) 83 - 108 mmHg [facility] HCO3 Art (Calculated) 27 20 - 30 mmol/L [facility] BE, art 3 mmol/L [facility] Comment: Interpretive Data No Reference Range Established Current Interpretive Data was last revised on 2017 O2 Sat Art (Measured) 99(H) 90 - 95 % [facility] Blood 03/28/2025 8:47 PM CDT 03/28/2025 9:02 PM CDT us Sonny Roque MD PhD LAB BLOOD ORDERABLES Final Res ult [facility] Department [place] [address] * (ABNORMAL) eGFR (03/28/2025 8:45 PM CDT) eGFR 45(L) >=60 mL/min/1. 73 m2 Comment: Interpretive Data Reference Interval Normal >/= 90 mL/min/1.73m2 Mildly decreased* 60 - 89 mL/min/1.73m2 Mildly to moderately decreased 45 - 59 mL/min/1.73m2 Moderately to severely decreased 30 - 44 mL/min/1.73m2 Severely decreased 15 - 29 mL/min/1.73m2 Kidney Failure < 15 mL/min/1.73m2 *Relative to young adult level Estimated glomerular filtration rate is determined by the 2020 CKD-EPI equation recommended by the National Kidney Foundation (A Unifying Approach to GFR Estimation: Recommendations of the NKF-ASK Task Force on Reassessing the Inclusion of Race in Diagnosing Kidney Disease, JASN 202). The CKD-EPI equation should not be used for patients with unstable renal function and has not been validated in children and those over 70. Current interpretive data was last reviewed 2021. Blood 03/28/2025 8:45 PM CDT 03/28/2025 9:09 PM CDT Lesia Alberto MD LAB BLOOD ORDERABLES Final Result Performing Organization Address City/[facility]/ZIP Co de Phone Number [facility] Department [place] [address] * (ABNORMAL) Basic metabolic panel (03/28/2025 8:45 PM CDT) Sodium 145 135 - 145 mmol/L Potassium, pl 4.7 3.3 - 4.9 mmol/L [facility] Chloride 111(H) 97 - 110 mmol/L [facility] CO2 25 22 - 32 mmol/L [facility] Anion gap 9 2 - 15 mmol/L [facility] BUN 20 6 - 25 mg/dL [facility] Creatinine 1.27(H) 0.60 - 1.10 mg/dL [facility] Glucose 204(H) 70 - 199 mg/dL [facility] Comment: Interpretive Data Fasting glucose >/= 126 mg/dl is diagnostic for diabetes. Fasting is defined as no caloric intake for at least 8 hours. Fasting glucose between 100 mg/dl to 125 mg/dl is diagnostic of prediabetes. In a patient with classic symptoms of hyperglycemia or hyperglycemic crisis, a random glucose >/= 200 mg/dl is diagnostic for diabetes. In the absence of unequivocal hyperglycemia, results should be confirmed by repeat testing. The classification and Diagnosis of Diabetes Diabetes Care 2021; 46: S19-S40. Current interpretive data was last revised 2022. Calcium 8.5 8.5 - 10.3 mg/dL [facility] Blood 03/28/2025 8:45 PM CDT 03/28/2025 9:09 PM CDT Lesia Alberto MD LAB BLOOD ORDERABLES Final Result Performing Organization Address [facility] Co de Phone Number [facility] Department [place] [address] * Infection Prevention Krystal auris PCR, surveillance Axilla/Groin (03/28/2025 8:43 PM CDT) Pathologist [facility] Krystal auris DNA Not Detected Not Detected [facility] Comment: Interpretive Data Testing performed by [facility] using the Florentin pawel 6800 Krystal auris assay. This assay detects DNA from Krystal auris using Real-Time PCR. This assay is laboratory developed and is not cleared by the [facility] Food and Drug Administration. The performance characteristics have been verified by the [facility]. Axilla/Groin 03/28/2025 8:43 PM CDT 03/29/2025 6:10 AM CDT Narrative CHARIS [facility] - 03/29/2025 12:12 PM CDT Order placed by [facility] due to ring surveillance. us Instant Order Generic Provider LAB MICROBIOLOGY - GENERAL [place] [address] [facility] * Oxyhemoglobin, central venous (03/28/2025 8:43 PM CDT) [facility] Oxyhemoglobin, CV 77.1 % Comment: Interpretive Data No reference range established. Current interpretive data was last revised 2020. Blood 03/28/2025 8:43 PM CDT 03/28/2025 9:02 PM CDT Jeremiah Dalal MD LAB BLOOD ORDERABLES Final R es[place] [address] * (ABNORMAL) Differential, auto (03/28/2025 8:43 PM CDT) Pathologist [facility] Neutrophil abs 7.44(H) 1.50 - 6.50 K/cumm Imm gran abs 0.06 0.00 - 0.10 K/cumm [facility] Lymphocyte abs 0.22(L) 0.80 - 3.30 K/cumm [facility] Monocyte abs 0.54 0.20 - 0.80 K/cumm [facility] Eosinophil abs 0.00 0.00 - 0.50 K/cumm [facility] Basophil abs 0.01 0.00 - 0.10 K/cumm [facility] Neutrophil pct 90.0 % [facility] Comment: Interpretive Data Percent cell count reference ranges are not reported, since discordance with absolute values may lead to misinterpretation of CBC data. Current Interpretive Data was last revised on 2018. Imm gran pct 0.7 % [facility] Comment: Interpretive Data Percent cell count reference ranges are not reported, since discordance with absolute values may lead to misinterpretation of CBC data. Current Interpretive Data was last revised on 2018. Lymphocyte pct 2.7 % [facility] Comment: Interpretive Data Percent cell count reference ranges are not reported, since discordance with absolute values may lead to misinterpretation of CBC data. Current Interpretive Data was last revised on 2018. Monocyte pct 6.5 % [facility] Comment: Interpretive Data Percent cell count reference ranges are not reported, since discordance with absolute values may lead to misinterpretation of CBC data. Current Interpretive Data was last revised on 2018. Eosinophil pct 0.0 % [facility] Comment: Interpretive Data Percent cell count reference ranges are not reported, since discordance with absolute values may lead to misinterpretation of CBC data. Current Interpretive Data was last revised on 2018. Basophil pct 0.1 % [facility] Comment: Interpretive Data Percent cell count reference ranges are not reported, since discordance with absolute values may lead to misinterpretation of CBC data. Current Interpretive Data was last revised on 2018. Blood 03/28/2025 8:43 PM CDT 03/28/2025 9:09 PM CDT us Jeremiah Dalal MD LAB BLOOD ORDERABLES Final R esult [facility] Department [place] [address] * (ABNORMAL) Calcium, ionized (03/28/2025 8:43 PM CDT) [facility] Calcium, Ionized 4.38(L) 4.50 - 5.10 mg/dL Blood 03/28/2025 8:43 PM CDT 03/28/2025 9:03 PM CDT us Jeremiah Dalal MD LAB BLOOD ORDERABLES Final R esult [facility] [place] [address] * (ABNORMAL) CBC with auto differential (03/28/2025 8:43 PM CDT) [facility] WBC 8.27 3.80 - 9.90 K/cumm Hgb 11.1(L) 11.9 - 15.5 g/dL [facility] Hct 32.3(L) 35.6 - 45.5 % [facility] Plt 51(L) 150 - 400 K/cumm [facility] MPV 10.9 9.1 - 12.3 fL [facility] RBC 3.68(L) 3.90 - 5.20 M/cumm [facility] MCV 87.8 81.3 - 96.4 fL [facility] MCH 30.2 27.1 - 33.3 pg [facility] MCHC 34.4 32.3 - 35.7 g/dL [facility] RDW CV 15.7(H) 11.1 - 14.9 % [facility] RDW SD 50.4(H) 35.7 - 48.1 fL [facility] NRBC abs 0.00 0.00 - 0.01 K/cumm [facility] Blood 03/28/2025 8:43 PM CDT 03/28/2025 9:09 PM CDT us Jeremiah Dalal MD LAB BLOOD ORDERABLES Final R esult CHARIS [facility] [place] [address] * POCT glucose (03/28/2025 7:26 PM CDT) Glucose, POC 159 70 - 199 mg/dL Blood 03/28/2025 7:26 PM CDT 03/28/2025 7:26 PM CDT Jeremiah Dalal MD LAB POCT ORDERABLES - DEVICE Final Result Performing Organization Address [facility] de Phone Number CHARIS [facility] [place] [address] * (ABNORMAL) eGFR (03/28/2025 4:11 PM CDT) eGFR 46(L) >=60 mL/min/1. 73 m2 Comment: Interpretive Data Reference Interval Normal >/= 90 mL/min/1.73m2 Mildly decreased* 60 - 89 mL/min/1.73m2 Mildly to moderately decreased 45 - 59 mL/min/1.73m2 Moderately to severely decreased 30 - 44 mL/min/1.73m2 Severely decreased 15 - 29 mL/min/1.73m2 Kidney Failure < 15 mL/min/1.73m2 *Relative to young adult level Estimated glomerular filtration rate is determined by the 2020 CKD-EPI equation recommended by the National Kidney Foundation (A Unifying Approach to GFR Estimation: Recommendations of the NKF-ASK Task Force on Reassessing the Inclusion of Race in Diagnosing Kidney Disease, JASN 2020). The CKD-EPI equation should not be used for patients with unstable renal function and has not been validated in children and those over 70. Current interpretive data was last reviewed 2021. Blood 03/28/2025 4:11 PM CDT 03/28/2025 4:32 PM CDT Jeremiah Dalal MD LAB BLOOD ORDERABLES Final R esult Performing Organization Address [facility] Co de Phone Number [facility] [place] [address] * Lactate, whole blood (03/28/2025 4:11 PM CDT) [facility] Lactate, bld 1.7 0.7 - 2.0 mmol/L Blood 03/28/2025 4:11 PM CDT 03/28/2025 4:26 PM CDT Jeremiah Dalal MD LAB BLOOD ORDERABLES Final R esult Performing Organization Address [facility] Co de Phone Number [facility] [place] [address] * Magnesium (03/28/2025 4:11 PM CDT) [facility] Magnesium 2.5 1.4 - 2.5 mg/dL Blood 03/28/2025 4:11 PM CDT 03/28/2025 4:32 PM CDT us Jeremiah Dalal MD LAB BLOOD ORDERABLES Final R esult Performing Organization Address [facility] de Phone Number [facility] [place] [address] * (ABNORMAL) Blood gas, arterial (03/28/2025 4:11 PM CDT) [facility] pH, Art 7.50(H) 7.35 - 7.45 PCO2, Arterial 32(L) 35 - 45 mmHg [facility] PO2, Arterial 97 83 - 108 mmHg [facility] HCO3 Art (Calculated) 26 20 - 30 mmol/L [facility] BE, art 2 mmol/L [facility] Comment: Interpretive Data No Reference Range Established Current Interpretive Data was last revised on 2017 O2 Sat Art (Measured) 98(H) 90 - 95 % [facility] Blood 03/28/2025 4:11 PM CDT 03/28/2025 4:26 PM CDT us Sonny Roque MD PhD LAB BLOOD ORDERABLES Final Res ult Performing Organization Address [facility] Co de Phone Number [facility] [place] [address] * (ABNORMAL) Hepatic function panel (03/28/2025 4:11 PM CDT) Pathologist [facility] Bilirubin, total 0.4 0.1 - 1.2 mg/dL Bilirubin, direct 0.2 0.1 - 0.3 mg/dL [facility] Protein, pl 5.4(L) 6.5 - 8.5 g/dL [facility] Albumin 2.6(L) 3.5 - 5.0 g/dL [facility] Alk phos 88 40 - 130 Units/L [facility] ALT 60(H) 7 - 45 Units/L [facility] AST 40 10 - 45 Units/L [facility] Blood 03/28/2025 4:11 PM CDT 03/28/2025 4:32 PM CDT us Jeremiah Dalal MD LAB BLOOD ORDERABLES Final R esult Performing Organization Address [facility] de Phone Number [facility] Department [place] [address] * (ABNORMAL) Basic metabolic panel (03/28/2025 4:11 PM CDT) Sodium 146(H) 135 - 145 mmol/L Potassium, pl 3.9 3.3 - 4.9 mmol/L [facility] Chloride 111(H) 97 - 110 mmol/L [facility] CO2 27 22 - 32 mmol/L [facility] Anion gap 8 2 - 15 mmol/L [facility] BUN 19 6 - 25 mg/dL [facility] Creatinine 1.23(H) 0.60 - 1.10 mg/dL [facility] Glucose 202(H) 70 - 199 mg/dL [facility] Comment: Interpretive Data Fasting glucose >/= 126 mg/dl is diagnostic for diabetes. Fasting is defined as no caloric intake for at least 8 hours. Fasting glucose between 100 mg/dl to 125 mg/dl is diagnostic of prediabetes. In a patient with classic symptoms of hyperglycemia or hyperglycemic crisis, a random glucose >/= 200 mg/dl is diagnostic for diabetes. In the absence of unequivocal hyperglycemia, results should be confirmed by repeat testing. The classification and Diagnosis of Diabetes Diabetes Care 2021; 46: S19-S40. Current interpretive data was last revised 2022. Calcium 8.5 8.5 - 10.3 mg/dL [facility] Blood 03/28/2025 4:11 PM CDT 03/28/2025 4:32 PM CDT us Jeremiah Dalal MD LAB BLOOD ORDERABLES Final R esult Performing Organization Address [facility] Co de Phone Number [facility] [place] [employer] [place] [address] * (ABNORMAL) POCT glucose (03/28/2025 3:37 PM CDT) Glucose, POC 211(H) 70 - 199 mg/dL Comment:Glu2: RN/MD Notified Glucose comment 1 Glu2: RN/MD Notified [facility] Blood 03/28/2025 3:37 PM CDT 03/28/2025 3:37 PM CDT Jeremiah Dalal MD LAB POCT ORDERABLES - DEVICE Final Result Performing Organization Address [facility] Co de Phone Number [facility] [place] [address] * Oxyhemoglobin, central venous (03/28/2025 12:33 PM CDT) Oxyhemoglobin, CV 73.0 % Comment: Interpretive Data No reference range established. Current interpretive data was last revised 2020. Blood 03/28/2025 12:3 3 PM CDT 03/28/2025 12:42 PM CDT Jeremiah Dalal MD LAB BLOOD ORDERABLES Final R esult [facility] Department [place] [address] * (ABNORMAL) Differential, auto (03/28/2025 12:33 PM CDT) Pathologist [facility] Neutrophil abs 6.50 1.50 - 6.50 K/cumm Imm gran abs 0.07 0.00 - 0.10 K/cumm [facility] Lymphocyte abs 0.22(L) 0.80 - 3.30 K/cumm [facility] Monocyte abs 0.37 0.20 - 0.80 K/cumm [facility] Eosinophil abs 0.00 0.00 - 0.50 K/cumm [facility] Basophil abs 0.01 0.00 - 0.10 K/cumm [facility] Neutrophil pct 90.6 % [facility] Comment: Interpretive Data Percent cell count reference ranges are not reported, since discordance with absolute values may lead to misinterpretation of CBC data. Current Interpretive Data was last revised on 2018. Imm gran pct 1.0 % [facility] Comment: Interpretive Data Percent cell count reference ranges are not reported, since discordance with absolute values may lead to misinterpretation of CBC data. Current Interpretive Data was last revised on 2018. Lymphocyte pct 3.1 % [facility] Comment: Interpretive Data Percent cell count reference ranges are not reported, since discordance with absolute values may lead to misinterpretation of CBC data. Current Interpretive Data was last revised on 2018. Monocyte pct 5.2 % [facility] Comment: Interpretive Data Percent cell count reference ranges are not reported, since discordance with absolute values may lead to misinterpretation of CBC data. Current Interpretive Data was last revised on 2018. Eosinophil pct 0.0 % [facility] Comment: Interpretive Data Percent cell count reference ranges are not reported, since discordance with absolute values may lead to misinterpretation of CBC data. Current Interpretive Data was last revised on 2018. Basophil pct 0.1 % [facility] Comment: Interpretive Data Percent cell count reference ranges are not reported, since discordance with absolute values may lead to misinterpretation of CBC data. Current Interpretive Data was last revised on 2018. Blood 03/28/2025 12:3 3 PM CDT 03/28/2025 12:50 PM CDT us Jeremiah Dalal MD LAB BLOOD ORDERABLES Final R esult Performing Organization Address City/[facility]/ZIP Co de Phone Number [facility] Department [place] [address] * Calcium, ionized (03/28/2025 12:33 PM CDT) [facility] Calcium, Ionized 4.81 4.50 - 5.10 mg/dL Blood 03/28/2025 12:3 3 PM CDT 03/28/2025 12:41 PM CDT us Jeremiah Dalal MD LAB BLOOD ORDERABLES Final R esult Performing Organization Address City/[facility] Co de Phone Number [facility] [place] [address] * (ABNORMAL) CBC with auto differential (03/28/2025 12:33 PM CDT) [facility] WBC 7.17 3.80 - 9.90 K/cumm Hgb 11.4(L) 11.9 - 15.5 g/dL [facility] Hct 32.5(L) 35.6 - 45.5 % [facility] Plt 50(L) 150 - 400 K/cumm [facility] MPV 10.7 9.1 - 12.3 fL [facility] RBC 3.77(L) 3.90 - 5.20 M/cumm [facility] MCV 86.2 81.3 - 96.4 fL [facility] MCH 30.2 27.1 - 33.3 pg [facility] MCHC 35.1 32.3 - 35.7 g/dL [facility] RDW CV 15.6(H) 11.1 - 14.9 % [facility] RDW SD 48.8(H) 35.7 - 48.1 fL [facility] NRBC abs 0.00 0.00 - 0.01 K/cumm [facility] Blood 03/28/2025 12:3 3 PM CDT 03/28/2025 12:50 PM CDT us Jeremiah Dalal MD LAB BLOOD ORDERABLES Final R esult Performing Organization Address [facility] de Phone Number [facility] Department [place] [address] * (ABNORMAL) Lactate, whole blood (03/28/2025 12:33 PM CDT) Lactate, bld 2.3(H) 0.7 - 2.0 mmol/L Blood 03/28/2025 12:3 3 PM CDT 03/28/2025 12:42 PM CDT us Jeremiah Dalal MD LAB BLOOD ORDERABLES Final R esult Performing Organization Address [facility] de Phone Number [facility] Department [place] [address] * (ABNORMAL) POCT glucose (03/28/2025 11:31 AM CDT) Glucose, POC 235(H) 70 - 199 mg/dL Comment:Glu2: RN/MD Notified Glucose comment 1 Glu2: RN/MD Notified [facility] Blood 03/28/2025 11:3 1 AM CDT 03/28/2025 11:31 AM CDT us Jeremiah Dalal MD LAB POCT ORDERABLES - DEVICE Final Result Performing Organization Address [facility] Co de Phone Number [facility] Department [place] [address] * (ABNORMAL) Lactate, whole blood (03/28/2025 9:00 AM CDT) Pathologist [facility] Lactate, bld 2.2(H) 0.7 - 2.0 mmol/L Blood 03/28/2025 9:00 AM CDT 03/28/2025 9:10 AM CDT us Jereimah Dalal MD LAB BLOOD ORDERABLES Final R esult Performing Organization Address [facility] Co de Phone Number [facility] [place] [address] * (ABNORMAL) Blood gas, arterial (03/28/2025 9:00 AM CDT) [facility] pH, Art 7.50(H) 7.35 - 7.45 PCO2, Arterial 34(L) 35 - 45 mmHg [facility] PO2, Arterial 111(H) 83 - 108 mmHg [facility] HCO3 Art (Calculated) 27 20 - 30 mmol/L [facility] BE, art 3 mmol/L [facility] Comment: Interpretive Data No Reference Range Established Current Interpretive Data was last revised on 2017 O2 Sat Art (Measured) 99(H) 90 - 95 % [facility] Blood 03/28/2025 9:00 AM CDT 03/28/2025 9:10 AM CDT us Sonny Roque MD PhD LAB BLOOD ORDERABLES Final Res ult Performing Organization Address [facility] Co de Phone Number [facility] Department [place] [address] * (ABNORMAL) POCT glucose (03/28/2025 7:54 AM CDT) Pathologist [facility] Glucose, POC 261(H) 70 - 199 mg/dL Comment:Glu2: RN/ Notified Glucose comment 1 Glu2: ABIOLA/ Notified [facility] Blood 03/28/2025 7:54 AM CDT 03/28/2025 7:54 AM CDT us Jeremiah Dalal MD LAB POCT ORDERABLES - DEVICE Final Result [facility] Department [place] [address] * XR Chest 1 View (03/28/2025 5:39 AM CDT) Anatomical Region Laterality Modality Body, Chest N/A Computed Radiogr aphy 03/28/2025 7:15 AM CDT Impressions 03/28/2025 7:15 AM CDT First exam timestamped 03/27/2025 4:30 PM. Moderate right-sided pneumothorax and small left is present which is new from the prior examination. Endotracheal tube terminates 5.5 cm above the sanford. Left internal jugular central venous catheter terminates in the mid superior vena cava. Vascular access sheath terminates in the right internal jugular vein. Heart size is normal. Atelectasis within the collapsed portions of the lungs. No pleural effusions. No dense consolidation. Second exam timestamped 03/27/2025 5:42 PM. Interval placement of bilateral thoracotomy tubes with near complete resolution of the pneumothoraces. Airspace opacities are noted within the right hilum and left lung base, which may represent atelectasis. Third exam timestamped 03/28/2025 5:33 AM. No significant interval change. Electronically signed by: Petr Chan M.D. Narrative 03/28/2025 7:15 AM CDT Examination: Three one view portables One view portable One view portable One view portable Comparison: 03/27/2025 11:42 AM. Procedure Note Petr Chan MD - 03/28/2025 Examination: Three one view portables One view portable One view portable One view portable Comparison: 03/27/2025 11:42 AM. IMPRESSION: First exam timestamped 03/27/2025 4:30 PM. Moderate right-sided pneumothorax and small left is present which is new from the prior examination. Endotracheal tube terminates 5.5 cm above the sanford. Left internal jugular central venous catheter terminates in the mid superior vena cava. Vascular access sheath terminates in the right internal jugular vein. Heart size is normal. Atelectasis within the collapsed portions of the lungs. No pleural effusions. No dense consolidation. Second exam timestamped 03/27/2025 5:42 PM. Interval placement of bilateral thoracotomy tubes with near complete resolution of the pneumothoraces. Airspace opacities are noted within the right hilum and left lung base, which may represent atelectasis. Third exam timestamped 03/28/2025 5:33 AM. No significant interval change. Electronically signed by: Petr Chan M.D. Jeremiah Dalal MD IMG XR PROCEDURES Final Resu lt * (ABNORMAL) POCT glucose (03/28/2025 4:17 AM CDT) Pathologist [facility] Glucose, POC 279(H) 70 - 199 mg/dL Blood 03/28/2025 4:17 AM CDT 03/28/2025 4:17 AM CDT Jeremiah Dalal MD LAB POCT ORDERABLES - DEVICE Final Result Performing Organization Address City/State/[facility] Co de Phone Number [facility] Department [place] [address] * (ABNORMAL) Blood gas, arterial (03/28/2025 4:12 AM CDT) pH, Art 7.48(H) 7.35 - 7.45 PCO2, Arterial 32(L) 35 - 45 mmHg [facility] PO2, Arterial 126(H) 83 - 108 mmHg [facility] HCO3 Art (Calculated) 24 20 - 30 mmol/L [facility] BE, art 1 mmol/L [facility] Comment: Interpretive Data No Reference Range Established Current Interpretive Data was last revised on 2017 O2 Sat Art (Measured) 99(H) 90 - 95 % [facility] Blood 03/28/2025 4:12 AM CDT 03/28/2025 4:32 AM CDT us Sonny Roque MD PhD LAB BLOOD ORDERABLES Final Res ult Performing Organization Address [facility] Co de Phone Number [facility] [place] [address] * Oxyhemoglobin, central venous (03/28/2025 4:11 AM CDT) Oxyhemoglobin, CV 84.4 % Comment: Interpretive Data No reference range established. Current interpretive data was last revised 2020. Blood 03/28/2025 4:11 AM CDT 03/28/2025 4:32 AM CDT us Jeremiah Dalal MD LAB BLOOD ORDERABLES Final R esult Performing Organization Address [facility] Co de Phone Number [facility] [place] [address] * (ABNORMAL) eGFR (03/28/2025 4:11 AM CDT) eGFR 45(L) >=60 mL/min/1. 73 m2 Comment: Interpretive Data Reference Interval Normal >/= 90 mL/min/1.73m2 Mildly decreased* 60 - 89 mL/min/1.73m2 Mildly to moderately decreased 45 - 59 mL/min/1.73m2 Moderately to severely decreased 30 - 44 mL/min/1.73m2 Severely decreased 15 - 29 mL/min/1.73m2 Kidney Failure < 15 mL/min/1.73m2 *Relative to young adult level Estimated glomerular filtration rate is determined by the 2020 CKD-EPI equation recommended by the National Kidney Foundation (A Unifying Approach to GFR Estimation: Recommendations of the NKF-ASK Task Force on Reassessing the Inclusion of Race in Diagnosing Kidney Disease, JASN 2020). The CKD-EPI equation should not be used for patients with unstable renal function and has not been validated in children and those over 70. Current interpretive data was last reviewed 2021. Blood 03/28/2025 4:11 AM CDT 03/28/2025 4:43 AM CDT us Jeremiah Dalal MD LAB BLOOD ORDERABLES Final R esult [facility] Department [place] [address] * (ABNORMAL) Differential, auto (03/28/2025 4:11 AM CDT) Neutrophil abs 9.58(H) 1.50 - 6.50 K/cumm Imm gran abs 0.08 0.00 - 0.10 K/cumm [facility] Lymphocyte abs 0.20(L) 0.80 - 3.30 K/cumm [facility] Monocyte abs 0.52 0.20 - 0.80 K/cumm [facility] Eosinophil abs 0.00 0.00 - 0.50 K/cumm [facility] Basophil abs 0.03 0.00 - 0.10 K/cumm [facility] Neutrophil pct 92.0 % [facility] Comment: Interpretive Data Percent cell count reference ranges are not reported, since discordance with absolute values may lead to misinterpretation of CBC data. Current Interpretive Data was last revised on 2018. Imm gran pct 0.8 % [facility] Comment: Interpretive Data Percent cell count reference ranges are not reported, since discordance with absolute values may lead to misinterpretation of CBC data. Current Interpretive Data was last revised on 2018. Lymphocyte pct 1.9 % [facility] Comment: Interpretive Data Percent cell count reference ranges are not reported, since discordance with absolute values may lead to misinterpretation of CBC data. Current Interpretive Data was last revised on 2018. Monocyte pct 5.0 % [facility] Comment: Interpretive Data Percent cell count reference ranges are not reported, since discordance with absolute values may lead to misinterpretation of CBC data. Current Interpretive Data was last revised on 2018. Eosinophil pct 0.0 % [facility] Comment: Interpretive Data Percent cell count reference ranges are not reported, since discordance with absolute values may lead to misinterpretation of CBC data. Current Interpretive Data was last revised on 2018. Basophil pct 0.3 % [facility] Comment: Interpretive Data Percent cell count reference ranges are not reported, since discordance with absolute values may lead to misinterpretation of CBC data. Current Interpretive Data was last revised on 2018. Blood 03/28/2025 4:11 AM CDT 03/28/2025 4:35 AM CDT us Jeremiah Dalal MD LAB BLOOD ORDERABLES Final R esult Performing Organization Address City/[facility]/ZIP Co de Phone Number [facility] Department [place] [address] * Critical Result Callback Chemistry (03/28/2025 4:11 AM CDT) Date Notified [id number] Time Notified 442 [facility] TestName Lactate Whole Blood CHARIS REYES Called/Read Back [facility] [place] [facility] Credentials RN CHARIS REYES Called By ED REYES Blood 03/28/2025 4:11 AM CDT 03/28/2025 4:32 AM CDT us Jeremiah Dalal MD LAB BLOOD ORDERABLES Final R esult [facility] Department [place] [address] * Calcium, ionized (03/28/2025 4:11 AM CDT) Calcium, Ionized 4.61 4.50 - 5.10 mg/dL Blood 03/28/2025 4:11 AM CDT 03/28/2025 4:32 AM CDT us Jeremiah Dalal MD LAB BLOOD ORDERABLES Final R esult Performing Organization Address City/[facility] Co de Phone Number [facility] Department [place] [address] * (ABNORMAL) CBC with auto differential (03/28/2025 4:11 AM CDT) Pathologist [facility] WBC 10.41(H) 3.80 - 9.90 K/cumm Hgb 12.2 11.9 - 15.5 g/dL [facility] Hct 34.8(L) 35.6 - 45.5 % [facility] Plt 60(L) 150 - 400 K/cumm [facility] MPV 10.4 9.1 - 12.3 fL [facility] RBC 4.11 3.90 - 5.20 M/cumm [facility] MCV 84.7 81.3 - 96.4 fL [facility] MCH 29.7 27.1 - 33.3 pg [facility] MCHC 35.1 32.3 - 35.7 g/dL [facility] RDW CV 15.7(H) 11.1 - 14.9 % [facility] RDW SD 47.7 35.7 - 48.1 fL [facility] NRBC abs 0.00 0.00 - 0.01 K/cumm [facility] Blood 03/28/2025 4:11 AM CDT 03/28/2025 4:35 AM CDT us Jeremiah Dalal MD LAB BLOOD ORDERABLES Final R esult [facility] Department [place] [address] * (ABNORMAL) Lactate, whole blood (03/28/2025 4:11 AM CDT) Pathologist [facility] Lactate, bld 4.0(C) 0.7 - 2.0 mmol/L Comment:Reviewed Blood 03/28/2025 4:11 AM CDT 03/28/2025 4:32 AM CDT Jeremiah Dalal MD LAB BLOOD ORDERABLES Final R esult Performing Organization Address [facility] Co de Phone Number [facility] [place] [address] * (ABNORMAL) Phosphorus (03/28/2025 4:11 AM CDT) Phosphorus, pl 2.2(L) 2.3 - 4.5 mg/dL Blood 03/28/2025 4:11 AM CDT 03/28/2025 4:33 AM CDT us Jeremiah Dalal MD LAB BLOOD ORDERABLES Final R esult Performing Organization Address [facility] Co de Phone Number [facility] [place] [address] * Magnesium (03/28/2025 4:11 AM CDT) Magnesium 2.5 1.4 - 2.5 mg/dL Blood 03/28/2025 4:11 AM CDT 03/28/2025 4:33 AM CDT Jeremiah Dalal MD LAB BLOOD ORDERABLES Final R esult Performing Organization Address [facility] [place] [address] * (ABNORMAL) Hepatic function panel (03/28/2025 4:11 AM CDT) Bilirubin, total 0.6 0.1 - 1.2 mg/dL Bilirubin, direct 0.2 0.1 - 0.3 mg/dL [facility] Protein, pl 5.6(L) 6.5 - 8.5 g/dL [facility] Albumin 2.7(L) 3.5 - 5.0 g/dL [facility] Alk phos 102 40 - 130 Units/L [facility] ALT 62(H) 7 - 45 Units/L [facility] AST 49(H) 10 - 45 Units/L [facility] Blood 03/28/2025 4:11 AM CDT 03/28/2025 4:33 AM CDT us Jeremiah Dalal MD LAB BLOOD ORDERABLES Final R esult [facility] Department [place] [address] * (ABNORMAL) Basic metabolic panel (03/28/2025 4:11 AM CDT) Sodium 143 135 - 145 mmol/L Potassium, pl 4.0 3.3 - 4.9 mmol/L [facility] Chloride 106 97 - 110 mmol/L [facility] CO2 25 22 - 32 mmol/L [facility] Anion gap 12 2 - 15 mmol/L [facility] BUN 22 6 - 25 mg/dL [facility] Creatinine 1.26(H) 0.60 - 1.10 mg/dL [facility] Glucose 313(H) 70 - 199 mg/dL [facility] Comment: Interpretive Data Fasting glucose >/= 126 mg/dl is diagnostic for diabetes. Fasting is defined as no caloric intake for at least 8 hours. Fasting glucose between 100 mg/dl to 125 mg/dl is diagnostic of prediabetes. In a patient with classic symptoms of hyperglycemia or hyperglycemic crisis, a random glucose >/= 200 mg/dl is diagnostic for diabetes. In the absence of unequivocal hyperglycemia, results should be confirmed by repeat testing. The classification and Diagnosis of Diabetes Diabetes Care 2021; 46: S19-S40. Current interpretive data was last revised 2022. Calcium 9.1 8.5 - 10.3 mg/dL [facility] Blood 03/28/2025 4:11 AM CDT 03/28/2025 4:33 AM CDT us Jeremiah Dalal MD LAB BLOOD ORDERABLES Final R esult Performing Organization Address [facility] Co de Phone Number [facility] [place] [address] * (ABNORMAL) POCT glucose (03/28/2025 1:30 AM CDT) Glucose, POC 301(H) 70 - 199 mg/dL Blood 03/28/2025 1:30 AM CDT 03/28/2025 1:30 AM CDT Jeremiah Dalal MD LAB POCT ORDERABLES - DEVICE Final Result Performing Organization Address [facility] de Phone Number [facility] [place] [address] * Oxyhemoglobin, central venous (03/28/2025 1:21 AM CDT) Oxyhemoglobin, CV 83.3 % Comment: Interpretive Data No reference range established. Current interpretive data was last revised 2020. Blood 03/28/2025 1:21 AM CDT 03/28/2025 1:33 AM CDT Jeremiah Dalal MD LAB BLOOD ORDERABLES Final R esult Performing Organization Address [facility] Co de Phone Number [facility] [place] [address] * Critical Result Callback Chemistry (03/28/2025 1:21 AM CDT) Date Notified [id number] Time Notified 142 CHARIS REYES TestName Lactate Whole Blood CHARIS ALARCON Called/Read Back [facility] Portillo REYES Credentials ABIOLA ALARCON Called By ED ALARCON Blood 03/28/2025 1:21 AM CDT 03/28/2025 1:33 AM CDT us Jeremiah Dalal MD LAB BLOOD ORDERABLES Final R esult [facility] [place] [address] * (ABNORMAL) Lactate, whole blood (03/28/2025 1:21 AM CDT) Lactate, bld 5.9(C) 0.7 - 2.0 mmol/L Comment:Repeated and verifie d. Blood 03/28/2025 1:21 AM CDT 03/28/2025 1:33 AM CDT us Jeremiah Dalal MD LAB BLOOD ORDERABLES Final R esult Performing Organization Address [facility] Co de Phone Number [facility]IS [facility] [place] [address] * CT Chest W and Abdomen Pelvis W WO Contrast (C) (03/28/2025 12:16 AM CDT) Anatomical Region Laterality Modality Body N/A Computed Tomogra phy 03/28/2025 12:5 1 AM CDT Impressions 03/28/2025 9:08 AM CDT 1. Large right retroperitoneal hematoma, not significantly changed in size compared to the prior exam. No evidence of active or venous extravasation of contrast to suggest continued bleed. 2. Bilateral chest tubes are present. Small right pneumothorax and trace pneumomediastinum, which may represent sequela of barotrauma. 3. Small catheter terminating in the rectum, not present on the previous exam. Recommend correlation with listed support devices. Dictated by: Berta Vance MD The radiology attending physician has personally reviewed this study, and had reviewed and/or edited this written report and agrees with it. Electronically signed by: Gee Clarke M.D. Narrative 03/28/2025 9:08 AM CDT EXAMINATION: 1. Computed tomography of the chest with intravenous contrast 2. Computed tomography of the abdomen and pelvis with and without intravenous contrast HISTORY: Retroperitoneal bleed, TECHNIQUE: Transaxial computed tomographic images of the abdomen and pelvis were obtained without intravenous contrast, followed by images of the chest, abdomen and pelvis, after the uneventful administration of 93 mL Opti-Ray 350 intravenous contrast according to the GI bleed protocol. COMPARISON: CT dated 03/26/2025 FINDINGS: Chest: Bilateral chest tube oriented towards the apices. Partially imaged central venous catheter tip in the superior vena cava. Left internal jugular approach central venous catheter tip in the superior vena cava. Endotracheal tube terminates in the mid thoracic trachea. Feeding tube terminates in the gastric body. 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 Small volume the pneumomediastinum. Normal main pulmonary artery size. No central pulmonary embolism. Normal heart size without pericardial effusion. No supraclavicular, axillary, mediastinal, or hilar lymphadenopathy. Small right pneumothorax. Interval decrease in the bilateral pleural effusions, now trace. Bibasilar airspace consolidations which are heterogeneously enhancing. No left pneumothorax. Abdomen/Pelvis: Unchanged left hemiliver cysts. Vicarious excretion of contrast in the gallbladder. Small filling defects in the gallbladder, which may represent stones. No intrahepatic or extrahepatic ductal dilatation. Patent portal, splenic, and superior mesenteric veins. Normal spleen, adrenals, pancreas. Simple cyst in the right kidney. Additional hypoattenuating lesions which are too small to characterize on CT. No hydronephrosis. Decompressed bladder with a Leo catheter. Unchanged stranding about the bladder. Normal stomach, duodenum. Normal caliber small bowel without evidence of bowel obstruction. Catheter in the region of the rectum, which terminates in the rectal wall. Diverticulosis without diverticulitis. The appendix is not definitively seen. Small volume free fluid. No pneumoperitoneum. No abdominal or pelvic lymphadenopathy. Large right retroperitoneal hematoma measuring 15.8 x 18.7, previously 14.4 x 20.6 cm. Interval decrease in the intrinsic hyperdense contents within the hematoma, with trace hyperdense contents seen on all 3 phases on series 6 image 55. No active arterial or venous extravasation of contrast suggest continued bleeding. No suspicious osseous lesions. Procedure Note Gee Clarke MD - 03/28/2025 EXAMINATION: 1. Computed tomography of the chest with intravenous contrast 2. Computed tomography of the abdomen and pelvis with and without intravenous contrast HISTORY: Retroperitoneal bleed, TECHNIQUE: Transaxial computed tomographic images of the abdomen and pelvis were obtained without intravenous contrast, followed by images of the chest, abdomen and pelvis, after the uneventful administration of 93 mL Opti-Ray 350 intravenous contrast according to the GI bleed protocol. COMPARISON: CT dated 03/26/2025 FINDINGS: Chest: Bilateral chest tube oriented towards the apices. Partially imaged central venous catheter tip in the superior vena cava. Left internal jugular approach central venous catheter tip in the superior vena cava. Endotracheal tube terminates in the mid thoracic trachea. Feeding tube terminates in the gastric body. 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 Small volume the pneumomediastinum. Normal main pulmonary artery size. No central pulmonary embolism. Normal heart size without pericardial effusion. No supraclavicular, axillary, mediastinal, or hilar lymphadenopathy. Small right pneumothorax. Interval decrease in the bilateral pleural effusions, now trace. Bibasilar airspace consolidations which are heterogeneously enhancing. No left pneumothorax. Abdomen/Pelvis: Unchanged left hemiliver cysts. Vicarious excretion of contrast in the gallbladder. Small filling defects in the gallbladder, which may represent stones. No intrahepatic or extrahepatic ductal dilatation. Patent portal, splenic, and superior mesenteric veins. Normal spleen, adrenals, pancreas. Simple cyst in the right kidney. Additional hypoattenuating lesions which are too small to characterize on CT. No hydronephrosis. Decompressed bladder with a Leo catheter. Unchanged stranding about the bladder. Normal stomach, duodenum. Normal caliber small bowel without evidence of bowel obstruction. Catheter in the region of the rectum, which terminates in the rectal wall. Diverticulosis without diverticulitis. The appendix is not definitively seen. Small volume free fluid. No pneumoperitoneum. No abdominal or pelvic lymphadenopathy. Large right retroperitoneal hematoma measuring 15.8 x 18.7, previously 14.4 x 20.6 cm. Interval decrease in the intrinsic hyperdense contents within the hematoma, with trace hyperdense contents seen on all 3 phases on series 6 image 55. No active arterial or venous extravasation of contrast suggest continued bleeding. No suspicious osseous lesions. IMPRESSION: 1. Large right retroperitoneal hematoma, not significantly changed in size compared to the prior exam. No evidence of active or venous extravasation of contrast to suggest continued bleed. 2. Bilateral chest tubes are present. Small right pneumothorax and trace pneumomediastinum, which may represent sequela of barotrauma. 3. Small catheter terminating in the rectum, not present on the previous exam. Recommend correlation with listed support devices. Dictated by: Berta Vance MD The radiology attending physician has personally reviewed this study, and had reviewed and/or edited this written report and agrees with it. Electronically signed by: Gee Clarke M.D. Jeremiah Dalal MD IMG CT PROCEDURES Final Resu lt * CT Head WO Contrast (03/28/2025 12:16 AM CDT) Anatomical Region Laterality Modality Head and Neck N/A Computed Tomogra phy 03/28/2025 12:3 0 AM CDT Impressions 03/28/2025 11:01 AM CDT No acute intracranial process. Dictated by: Morales Garay MD The radiology attending physician has personally reviewed this study, and had reviewed and/or edited this written report and agrees with it. Electronically signed by: Santo Rollins M.D. Narrative 03/28/2025 11:01 AM CDT EXAMINATION: CT head without contrast HISTORY: Status post PEA arrest TECHNIQUE: CT of the head was performed with images acquired from skull base to vertex without intravenous contrast. COMPARISON: None Available. FINDINGS: There are scattered areas of periventricular and deep white matter hypodensity, nonspecific but likely on the basis of microvascular ischemia. There is no acute intracranial hemorrhage. Ventricles are of normal size and morphology. No mass effect or midline shift is present. The schwab-white matter differentiation is normal. Bilateral lens replacements..The visualized portions of the mastoids are normal. Secretions in the right frontal and bilateral sphenoid and ethmoid sinuses. Partially imaged nasogastric tube.. No fractures are identified. Procedure Note Santo Rollins MD - 03/28/2025 EXAMINATION: CT head without contrast HISTORY: Status post PEA arrest TECHNIQUE: CT of the head was performed with images acquired from skull base to vertex without intravenous contrast. COMPARISON: None Available. FINDINGS: There are scattered areas of periventricular and deep white matter hypodensity, nonspecific but likely on the basis of microvascular ischemia. There is no acute intracranial hemorrhage. Ventricles are of normal size and morphology. No mass effect or midline shift is present. The schwab-white matter differentiation is normal. Bilateral lens replacements..The visualized portions of the mastoids are normal. Secretions in the right frontal and bilateral sphenoid and ethmoid sinuses. Partially imaged nasogastric tube.. No fractures are identified. IMPRESSION: No acute intracranial process. Dictated by: Morales Garay MD The radiology attending physician has personally reviewed this study, and had reviewed and/or edited this written report and agrees with it. Electronically signed by: Santo Rollins M.D. Jeremiah Dalal MD IMG CT PROCEDURES Final Resu lt * Vancomycin level random (03/27/2025 11:08 PM CDT) Vancomycin random 11.3 mcg/mL Comment: Interpretive Data No reference ranges have been established for random drug levels. Current Interpretive Data was last revised on 2021. Blood 03/27/2025 11:0 8 PM CDT 03/27/2025 11:25 PM CDT Jeremiah Dalal MD LAB BLOOD ORDERABLES Final R esult Performing Organization Address City/State/[facility] Co de Phone Number [facility] Department [place] [address] * Critical Result Callback Chemistry (03/27/2025 10:59 PM CDT) Date Notified [id number] Time Notified 2343 CHARIS REYES TestName Lactate Whole Blood CHARIS ALARCON Called/Read Back Piotr REYES Credentials RN CHARIS ALARCON Called By ED ALARCON Blood 03/27/2025 10:5 9 PM CDT 03/27/2025 11:06 PM CDT Jeremiah Dalal MD LAB BLOOD ORDERABLES Final R esult [facility] Department [place] [address] * (ABNORMAL) Lactate, whole blood (03/27/2025 10:59 PM CDT) Pathologist [facility] Lactate, bld 6.2(C) 0.7 - 2.0 mmol/L Comment:Reviewed Blood 03/27/2025 10:5 9 PM CDT 03/27/2025 11:06 PM CDT us Jeremiah Dalal MD LAB BLOOD ORDERABLES Final R esult Performing Organization Address [facility] Co de Phone Number [facility] [place] [address] * (ABNORMAL) Blood gas, arterial (03/27/2025 10:59 PM CDT) [facility] pH, Art 7.42 7.35 - 7.45 PCO2, Arterial 34(L) 35 - 45 mmHg [facility] PO2, Arterial 145(H) 83 - 108 mmHg [facility] HCO3 Art (Calculated) 22 20 - 30 mmol/L [facility] BE, art -2 mmol/L [facility] Comment: Interpretive Data No Reference Range Established Current Interpretive Data was last revised on 2017 O2 Sat Art (Measured) 99(H) 90 - 95 % [facility] Blood 03/27/2025 10:5 9 PM CDT 03/27/2025 11:06 PM CDT us Sonny Roque MD PhD LAB BLOOD ORDERABLES Final Res ult Performing Organization Address [facility] Co de Phone Number [facility] [place] [address] * (ABNORMAL) POCT glucose (03/27/2025 10:58 PM CDT) Glucose, POC 309(H) 70 - 199 mg/dL Blood 03/27/2025 10:5 8 PM CDT 03/27/2025 10:58 PM CDT Jeremiah Dalal MD LAB POCT ORDERABLES - DEVICE Final Result Performing Organization Address [facility] de Phone Number [facility] [place] [address] * (ABNORMAL) POCT glucose (03/27/2025 8:12 PM CDT) Glucose, POC 305(H) 70 - 199 mg/dL Blood 03/27/2025 8:12 PM CDT 03/27/2025 8:12 PM CDT Jeremiah Dalal MD LAB POCT ORDERABLES - DEVICE Final Result Performing Organization Address [facility] Phone Number [facility] [place] [address] * (ABNORMAL) Blood gas, arterial (03/27/2025 8:08 PM CDT) pH, Art 7.43 7.35 - 7.45 PCO2, Arterial 36 35 - 45 mmHg [facility] PO2, Arterial 190(H) 83 - 108 mmHg [facility] HCO3 Art (Calculated) 24 20 - 30 mmol/L [facility] BE, art 0 mmol/L [facility] Comment: Interpretive Data No Reference Range Established Current Interpretive Data was last revised on 2017 O2 Sat Art (Measured) 100(H) 90 - 95 % [facility] Blood 03/27/2025 8:08 PM CDT 03/27/2025 8:25 PM CDT Sonny Roque MD PhD LAB BLOOD ORDERABLES Final Res ult Performing Organization Address [facility] Co de Phone Number [facility] [place] [address] * Oxyhemoglobin, central venous (03/27/2025 8:00 PM CDT) Oxyhemoglobin, CV 92.0 % Comment: Interpretive Data No reference range established. Current interpretive data was last revised 2020. Blood 03/27/2025 8:00 PM CDT 03/27/2025 8:25 PM CDT us Jeremiah Dalal MD LAB BLOOD ORDERABLES Final R esult Performing Organization Address City/[facility]/ZIP Co de Phone Number CHARIS [facility] Department [place] [address] * (ABNORMAL) eGFR (03/27/2025 8:00 PM CDT) eGFR 35(L) >=60 mL/min/1. 73 m2 Comment: Interpretive Data Reference Interval Normal >/= 90 mL/min/1.73m2 Mildly decreased* 60 - 89 mL/min/1.73m2 Mildly to moderately decreased 45 - 59 mL/min/1.73m2 Moderately to severely decreased 30 - 44 mL/min/1.73m2 Severely decreased 15 - 29 mL/min/1.73m2 Kidney Failure < 15 mL/min/1.73m2 *Relative to young adult level Estimated glomerular filtration rate is determined by the 2020 CKD-EPI equation recommended by the [employer] (A Unifying Approach to GFR Estimation: Recommendations of the NKF-ASK Task Force on Reassessing the Inclusion of Race in Diagnosing Kidney Disease, JASN 2020). The CKD-EPI equation should not be used for patients with unstable renal function and has not been validated in children and those over 70. Current interpretive data was last reviewed 2021. Blood 03/27/2025 8:00 PM CDT 03/27/2025 8:30 PM CDT us Lesia Alberto MD LAB BLOOD ORDERABLES Final Result [facility] [place] [address] * (ABNORMAL) Differential, auto (03/27/2025 8:00 PM CDT) Neutrophil abs 10.55(H) 1.50 - 6.50 K/cumm Imm gran abs 0.20(H) 0.00 - 0.10 K/cumm [facility] Lymphocyte abs 0.22(L) 0.80 - 3.30 K/cumm [facility] Monocyte abs 0.88(H) 0.20 - 0.80 K/cumm [facility] Eosinophil abs 0.01 0.00 - 0.50 K/cumm [facility] Basophil abs 0.03 0.00 - 0.10 K/cumm [facility] Neutrophil pct 88.6 % [facility] Comment: Interpretive Data Percent cell count reference ranges are not reported, since discordance with absolute values may lead to misinterpretation of CBC data. Current Interpretive Data was last revised on 2018. Imm gran pct 1.7 % [facility] Comment: Interpretive Data Percent cell count reference ranges are not reported, since discordance with absolute values may lead to misinterpretation of CBC data. Current Interpretive Data was last revised on 2018. Lymphocyte pct 1.9 % [facility] Comment: Interpretive Data Percent cell count reference ranges are not reported, since discordance with absolute values may lead to misinterpretation of CBC data. Current Interpretive Data was last revised on 2018. Monocyte pct 7.4 % [facility] Comment: Interpretive Data Percent cell count reference ranges are not reported, since discordance with absolute values may lead to misinterpretation of CBC data. Current Interpretive Data was last revised on 2018. Eosinophil pct 0.1 % [facility] Comment: Interpretive Data Percent cell count reference ranges are not reported, since discordance with absolute values may lead to misinterpretation of CBC data. Current Interpretive Data was last revised on 2018. Basophil pct 0.3 % [facility] Comment: Interpretive Data Percent cell count reference ranges are not reported, since discordance with absolute values may lead to misinterpretation of CBC data. Current Interpretive Data was last revised on 2018. Blood 03/27/2025 8:00 PM CDT 03/27/2025 8:30 PM CDT Jeremiah Dalal MD LAB BLOOD ORDERABLES Final R esult CHARIS [facility] [place] [address] * Critical Result Callback Chemistry (03/27/2025 8:00 PM CDT) Date Notified [id number] Time Notified 2050 CHARIS REYES TestName Lactate Whole Blood CHARIS ALARCON Called/Read Back [facility] [place] REYES Credentials RN CHARIS REYES Called By ED REYES Blood 03/27/2025 8:00 PM CDT 03/27/2025 8:25 PM CDT us Jeremiah Dalal MD LAB BLOOD ORDERABLES Final R esult Performing Organization Address [facility]/ZIP Co de Phone Number [facility] Department [place] [address] * (ABNORMAL) Calcium, ionized (03/27/2025 8:00 PM CDT) Calcium, Ionized 4.34(L) 4.50 - 5.10 mg/dL Blood 03/27/2025 8:00 PM CDT 03/27/2025 8:25 PM CDT Jeremiah Dalal MD LAB BLOOD ORDERABLES Final R esult [facility] [place] [address] * (ABNORMAL) CBC with auto differential (03/27/2025 8:00 PM CDT) WBC 11.89(H) 3.80 - 9.90 K/cumm Hgb 12.7 11.9 - 15.5 g/dL [facility] Hct 36.5 35.6 - 45.5 % [facility] Plt 62(L) 150 - 400 K/cumm [facility] MPV 10.8 9.1 - 12.3 fL [facility] RBC 4.27 3.90 - 5.20 M/cumm [facility] MCV 85.5 81.3 - 96.4 fL [facility] MCH 29.7 27.1 - 33.3 pg [facility] MCHC 34.8 32.3 - 35.7 g/dL [facility] RDW CV 15.7(H) 11.1 - 14.9 % [facility] RDW SD 48.6(H) 35.7 - 48.1 fL [facility] NRBC abs 0.00 0.00 - 0.01 K/cumm [facility] Blood 03/27/2025 8:00 PM CDT 03/27/2025 8:30 PM CDT us Jeremiah Dalal MD LAB BLOOD ORDERABLES Final R esult [facility] Department [place] [address] * (ABNORMAL) Lactate, whole blood (03/27/2025 8:00 PM CDT) [facility] Lactate, bld 4.4(C) 0.7 - 2.0 mmol/L Comment:REVIEWED Blood 03/27/2025 8:00 PM CDT 03/27/2025 8:25 PM CDT us Jeremiah Dalal MD LAB BLOOD ORDERABLES Final R esult [facility] Department [place] [address] * Infection Prevention MRSA Only (Staphylococcus aureus) Culture Nasal (03/27/2025 8:00 PM CDT) Pathologist [facility] Report Final Report: Negative Nasal 03/27/2025 8:00 PM CDT 03/27/2025 8:32 PM CDT Narrative [facility] - 03/29/2025 6:58 AM CDT Testing performed by [facility] ([phone]). us Jeremiah Dalal MD LAB MICROBIOLOGY - GENERAL O RDERABLES Final Result Performing Organization Address City/[facility] Co de Phone Number [facility] Department [place] [address] * Magnesium (03/27/2025 8:00 PM CDT) [facility] Magnesium 1.9 1.4 - 2.5 mg/dL Blood 03/27/2025 8:00 PM CDT 03/27/2025 8:30 PM CDT us Jeremiah Dalal MD LAB BLOOD ORDERABLES Final R esult Performing Organization Address [facility] Co de Phone Number [facility] [employer] [place] [address] * (ABNORMAL) Hepatic function panel (03/27/2025 8:00 PM CDT) Pathologist [facility] Bilirubin, total 0.7 0.1 - 1.2 mg/dL Bilirubin, direct 0.3 0.1 - 0.3 mg/dL [facility] Protein, pl 5.5(L) 6.5 - 8.5 g/dL [facility] Albumin 2.7(L) 3.5 - 5.0 g/dL [facility] Alk phos 101 40 - 130 Units/L [facility] ALT 62(H) 7 - 45 Units/L [facility] AST 59(H) 10 - 45 Units/L [facility] Blood 03/27/2025 8:00 PM CDT 03/27/2025 8:30 PM CDT us Jeremiah Dalal MD LAB BLOOD ORDERABLES Final R esult [facility] Department [place] [address] * (ABNORMAL) Basic metabolic panel (03/27/2025 8:00 PM CDT) Sodium 144 135 - 145 mmol/L Potassium, pl 4.2 3.3 - 4.9 mmol/L [facility] Chloride 108 97 - 110 mmol/L [facility] CO2 24 22 - 32 mmol/L [facility] Anion gap 12 2 - 15 mmol/L [facility] BUN 23 6 - 25 mg/dL [facility] Creatinine 1.56(H) 0.60 - 1.10 mg/dL [facility] Glucose 304(H) 70 - 199 mg/dL [facility] Comment: Interpretive Data Fasting glucose >/= 126 mg/dl is diagnostic for diabetes. Fasting is defined as no caloric intake for at least 8 hours. Fasting glucose between 100 mg/dl to 125 mg/dl is diagnostic of prediabetes. In a patient with classic symptoms of hyperglycemia or hyperglycemic crisis, a random glucose >/= 200 mg/dl is diagnostic for diabetes. In the absence of unequivocal hyperglycemia, results should be confirmed by repeat testing. The classification and Diagnosis of Diabetes Diabetes Care 202; 46: S19-S40. Current interpretive data was last revised 2022. Calcium 8.5 8.5 - 10.3 mg/dL [facility] Blood 03/27/2025 8:00 PM CDT 03/27/2025 8:30 PM CDT us Lesia Alberto MD LAB BLOOD ORDERABLES Final Result [facility] Department [place] [address] * XR Chest 1 View (03/27/2025 5:40 PM CDT) Anatomical Region Laterality Modality Body, Chest N/A Digital Radiogra phy 03/28/2025 7:15 AM CDT Impressions 03/28/2025 7:15 AM CDT First exam timestamped 03/27/2025 4:30 PM. Moderate right-sided pneumothorax and small left is present which is new from the prior examination. Endotracheal tube terminates 5.5 cm above the sanford. Left internal jugular central venous catheter terminates in the mid superior vena cava. Vascular access sheath terminates in the right internal jugular vein. Heart size is normal. Atelectasis within the collapsed portions of the lungs. No pleural effusions. No dense consolidation. Second exam timestamped 03/27/2025 5:42 PM. Interval placement of bilateral thoracotomy tubes with near complete resolution of the pneumothoraces. Airspace opacities are noted within the right hilum and left lung base, which may represent atelectasis. Third exam timestamped 03/28/2025 5:33 AM. No significant interval change. Electronically signed by: Petr Chan M.D. Narrative 03/28/2025 7:15 AM CDT Examination: Three one view portables One view portable One view portable One view portable Comparison: 03/27/2025 11:42 AM. Procedure Note Petr Chan MD - 03/28/2025 Examination: Three one view portables One view portable One view portable One view portable Comparison: 03/27/2025 11:42 AM. IMPRESSION: First exam timestamped 03/27/2025 4:30 PM. Moderate right-sided pneumothorax and small left is present which is new from the prior examination. Endotracheal tube terminates 5.5 cm above the sanford. Left internal jugular central venous catheter terminates in the mid superior vena cava. Vascular access sheath terminates in the right internal jugular vein. Heart size is normal. Atelectasis within the collapsed portions of the lungs. No pleural effusions. No dense consolidation. Second exam timestamped 03/27/2025 5:42 PM. Interval placement of bilateral thoracotomy tubes with near complete resolution of the pneumothoraces. Airspace opacities are noted within the right hilum and left lung base, which may represent atelectasis. Third exam timestamped 03/28/2025 5:33 AM. No significant interval change. Electronically signed by: Petr Chan M.D. us Jeremiah Dalal MD IMG XR PROCEDURES Final Resu lt * CHEST TUBE INSERTION (03/27/2025 5:31 PM CDT) Anatomical Region Laterality Modality Other Narrative 03/27/2025 5:31 PM CDT Max Rodriguez MD 03/28/2025 10:36 AM Chest Tube Insertion Date/Time: 03/27/2025 5:31 PM Performed by: Jenni Forrest MD Authorized by: Jenni Forrest MD [place] Protocol: RN Notified of Procedure: yes Informed consent: Unable to obtain due to emergent status Patient's stated name/ matches armband: Patient unable to verbalize - armband matched to name and within medical record Allergies confirmed: yes Consent form signed, dated, timed; matches correct patient, intended procedure and site: No consent form due to emergent status Imaging: Pertinent imaging reviewed, correctly oriented and match to patient identifiers Lab/Diag test results: Pertinent lab/diag tests reviewed and match to patient identifiers Supplies, devices and special equipment are available: yes Immediately prior to the procedure a time out was called: a verbal verification by the procedure participants confirmed correct patient identity, correct site/side marked and visible (if applicable); agreement on procedure to be done; and correct patient positioning Indications: tension pneumothorax Skin prepararion: Skin prepped with povidone-iodine Anesthesia (see MAR for exact dosage) Anesthesia method: None Sedation type: Deep sedation Patient sedated: Yes Sedation: Propofol Analgesia: Fentanyl Patient position: Supine Placement location: Right lateral (BILATERAL) Scalpel size: 10 Tube size (Montenegrin): 24 Dissection instrument: Simi clamp and finger Tube connected to: Suction Drainage characteristics: Bloody Drainage amount (ml): 200 Suture material: 0 silk Dressing: Petroleum pregnated gauze Post-insertion x-ray findings comment: Pending Chest x-rray pending: Yes The patient suffered a cardiac arrest with ROSC obtained after CPR. Following intubation, she remained on high dose pressors with escalating peak airway pressures. A chest XR showed bilateral pneumothoraces, requiring an emergent chest tube. The bilateral chest wall was prepped and draped appropriately. A quick time-out was called. Landmarks were identified, and incisions were made in line with the inframammary creases overtop the 4th-5th intercostal spaces. Upon entering the chest with a Simi, an immediate lou of air was noted. 24Fr chest tubes were guided posteriorly within the pleural space, with a copious amounts of blood noted. The procedure was nearly identical bilaterally. The tubes were placed to suction. There was a marked and sustained improvement in respiratory and hemodynamic status following bilateral tube thoracostomy. Post Procedure Debrief: All guidewires, needles, sponges or other items are accounted for: no us Jenni Forrest MD IN CLINIC/BEDSIDE IDALIA HANNA Final Result * (ABNORMAL) POC Blood Gas and Chemistries, Arterial - (03/27/2025 5:25 PM CDT) pH, Art POC 7.43 7.35 - 7.45 pCO2, Art POC 41 35 - 45 mmHg [facility] pO2, Art POC 94 83 - 108 mmHg [facility] Na, POC 140 135 - 145 mmol/L [facility] K POC 3.9 3.3 - 4.9 mmol/L [facility] Comment: Interpretive Data Not all point of care methods assess for hemolysis. Confirm with instrument and retest K+ if not consistent with clinical signs and symptoms. Current Interpretive Data was last revised on 2024. Cl, POC 110 97 - 110 mmol/L [facility] Ionized Ca, POC 4.72 4.50 - 5.10 mg/dL [facility] Glucose, POC 305(H) 70 - 199 mg/dL [facility] Lactate POC 3.1(H) 0.7 - 2.0 mmol/L [facility] SO2 (luis alfredo) arterial 98(H) 90 - 95 % [facility] Base excess, POC 2.6 mmol/L [facility] HCO3, Art POC 27 20 - 30 mmol/L [facility] Hct, POC 39.0 36.3 - 45.3 % [facility] Total Hb, POC 13.1 11.9 - 15.5 g/dL [facility] Blood 03/27/2025 5:25 PM CDT 03/27/2025 5:25 PM CDT Jeremiah Dalal MD LAB POCT ORDERABLES - DEVICE Final Result [facility] Department [place] [address] * XR Chest 1 View (03/27/2025 4:45 PM CDT) Anatomical Region Laterality Modality Body, Chest N/A Computed Radiogr aphy 03/28/2025 7:15 AM CDT Impressions 03/28/2025 7:15 AM CDT First exam timestamped 03/27/2025 4:30 PM. Moderate right-sided pneumothorax and small left is present which is new from the prior examination. Endotracheal tube terminates 5.5 cm above the sanford. Left internal jugular central venous catheter terminates in the mid superior vena cava. Vascular access sheath terminates in the right internal jugular vein. Heart size is normal. Atelectasis within the collapsed portions of the lungs. No pleural effusions. No dense consolidation. Second exam timestamped 03/27/2025 5:42 PM. Interval placement of bilateral thoracotomy tubes with near complete resolution of the pneumothoraces. Airspace opacities are noted within the right hilum and left lung base, which may represent atelectasis. Third exam timestamped 03/28/2025 5:33 AM. No significant interval change. Electronically signed by: Petr Chan M.D. Narrative 03/28/2025 7:15 AM CDT Examination: Three one view portables One view portable One view portable One view portable Comparison: 03/27/2025 11:42 AM. Procedure Note Petr Chan MD - 03/28/2025 Examination: Three one view portables One view portable One view portable One view portable Comparison: 03/27/2025 11:42 AM. IMPRESSION: First exam timestamped 03/27/2025 4:30 PM. Moderate right-sided pneumothorax and small left is present which is new from the prior examination. Endotracheal tube terminates 5.5 cm above the sanford. Left internal jugular central venous catheter terminates in the mid superior vena cava. Vascular access sheath terminates in the right internal jugular vein. Heart size is normal. Atelectasis within the collapsed portions of the lungs. No pleural effusions. No dense consolidation. Second exam timestamped 03/27/2025 5:42 PM. Interval placement of bilateral thoracotomy tubes with near complete resolution of the pneumothoraces. Airspace opacities are noted within the right hilum and left lung base, which may represent atelectasis. Third exam timestamped 03/28/2025 5:33 AM. No significant interval change. Electronically signed by: Petr Chan M.D. Jeremiah Dalal MD IMG XR PROCEDURES Final Resu lt * (ABNORMAL) POC Blood Gas and Chemistries, Arterial - (03/27/2025 4:23 PM CDT) pH, Art POC 7.18(C) 7.35 - 7.45 pCO2, Art POC 74(H) 35 - 45 mmHg [facility] pO2, Art POC 64(L) 83 - 108 mmHg [facility] Na, POC 141 135 - 145 mmol/L [facility] K POC 4.2 3.3 - 4.9 mmol/L [facility] Comment: Interpretive Data Not all point of care methods assess for hemolysis. Confirm with instrument and retest K+ if not consistent with clinical signs and symptoms. Current Interpretive Data was last revised on 2024. Cl, POC 109 97 - 110 mmol/L [facility] Ionized Ca, POC 5.24(H) 4.50 - 5.10 mg/dL [facility] Glucose, POC 300(H) 70 - 199 mg/dL [facility] Lactate POC 4.7(C) 0.7 - 2.0 mmol/L [facility] SO2 (luis alfredo) arterial 87(L) 90 - 95 % [facility] Base excess, POC -2.5 mmol/L [facility] HCO3, Art POC 28 20 - 30 mmol/L [facility] Hct, POC 40.0 36.3 - 45.3 % [facility] Total Hb, POC 13.4 11.9 - 15.5 g/dL [facility] Blood 03/27/2025 4:23 PM CDT 03/27/2025 4:23 PM CDT Jeremiah Dalal MD LAB POCT ORDERABLES - DEVICE Final Result [facility] Department [place] [address] * (ABNORMAL) POC Blood Gas and Chemistries, Arterial - (03/27/2025 4:05 PM CDT) pH, Art POC 7.45 7.35 - 7.45 pCO2, Art POC 38 35 - 45 mmHg [facility] pO2, Art POC 284(H) 83 - 108 mmHg [facility] Na, POC 139 135 - 145 mmol/L [facility] K POC 5.5(H) 3.3 - 4.9 mmol/L [facility] Comment: Interpretive Data Not all point of care methods assess for hemolysis. Confirm with instrument and retest K+ if not consistent with clinical signs and symptoms. Current Interpretive Data was last revised on 2024. Cl, POC 109 97 - 110 mmol/L [facility] Ionized Ca, POC 4.81 4.50 - 5.10 mg/dL [facility] Glucose, POC 225(H) 70 - 199 mg/dL [facility] Lactate POC 3.9(H) 0.7 - 2.0 mmol/L [facility] SO2 (luis alfredo) arterial 100(H) 90 - 95 % [facility] Base excess, POC 2.4 mmol/L [facility] HCO3, Art POC 26 20 - 30 mmol/L [facility] Hct, POC 40.0 36.3 - 45.3 % [facility] Total Hb, POC 13.3 11.9 - 15.5 g/dL [facility] Blood 03/27/2025 4:05 PM CDT 03/27/2025 4:05 PM CDT Jeremiah Dalal MD LAB POCT ORDERABLES - DEVICE Final Result Performing Organization Address City/[facility]/ZIP Co de Phone Number [facility] [place] [address] * Oxyhemoglobin, central venous (03/27/2025 12:15 PM CDT) Oxyhemoglobin, CV 76.3 % Comment: Interpretive Data No reference range established. Current interpretive data was last revised 2020. Blood 03/27/2025 12:1 5 PM CDT 03/27/2025 12:30 PM CDT Jeremiah Dalal MD LAB BLOOD ORDERABLES Final R esult Performing Organization Address [facility] Co de Phone Number [facility] [place] [address] * (ABNORMAL) Differential, auto (03/27/2025 12:15 PM CDT) Neutrophil abs 8.97(H) 1.50 - 6.50 K/cumm Imm gran abs 0.09 0.00 - 0.10 K/cumm [facility] Lymphocyte abs 0.66(L) 0.80 - 3.30 K/cumm [facility] Monocyte abs 0.73 0.20 - 0.80 K/cumm [facility] Eosinophil abs 0.02 0.00 - 0.50 K/cumm [facility] Basophil abs 0.03 0.00 - 0.10 K/cumm [facility] Neutrophil pct 85.3 % [facility] Comment: Interpretive Data Percent cell count reference ranges are not reported, since discordance with absolute values may lead to misinterpretation of CBC data. Current Interpretive Data was last revised on 2018. Imm gran pct 0.9 % [facility] Comment: Interpretive Data Percent cell count reference ranges are not reported, since discordance with absolute values may lead to misinterpretation of CBC data. Current Interpretive Data was last revised on 2018. Lymphocyte pct 6.3 % [facility] Comment: Interpretive Data Percent cell count reference ranges are not reported, since discordance with absolute values may lead to misinterpretation of CBC data. Current Interpretive Data was last revised on 2018. Monocyte pct 7.0 % [facility] Comment: Interpretive Data Percent cell count reference ranges are not reported, since discordance with absolute values may lead to misinterpretation of CBC data. Current Interpretive Data was last revised on 2018. Eosinophil pct 0.2 % [facility] Comment: Interpretive Data Percent cell count reference ranges are not reported, since discordance with absolute values may lead to misinterpretation of CBC data. Current Interpretive Data was last revised on 2018. Basophil pct 0.3 % [facility] Comment: Interpretive Data Percent cell count reference ranges are not reported, since discordance with absolute values may lead to misinterpretation of CBC data. Current Interpretive Data was last revised on 2018. Blood 03/27/2025 12:1 5 PM CDT 03/27/2025 12:30 PM CDT us Jeremiah Dalal MD LAB BLOOD ORDERABLES Final R esult [facility] Department [place] [address] * Calcium, ionized (03/27/2025 12:15 PM CDT) Calcium, Ionized 4.60 4.50 - 5.10 mg/dL Blood 03/27/2025 12:1 5 PM CDT 03/27/2025 12:28 PM CDT Jeremiah Dalal MD LAB BLOOD ORDERABLES Final [facility] [place] [address] * (ABNORMAL) CBC with auto differential (03/27/2025 12:15 PM CDT) Pathologist [facility] WBC 10.50(H) 3.80 - 9.90 K/cumm Hgb 12.7 11.9 - 15.5 g/dL [facility] Hct 35.0(L) 35.6 - 45.5 % [facility] Plt 78(L) 150 - 400 K/cumm [facility] MPV 10.8 9.1 - 12.3 fL [facility] RBC 4.21 3.90 - 5.20 M/cumm [facility] MCV 83.1 81.3 - 96.4 fL [facility] MCH 30.2 27.1 - 33.3 pg [facility] MCHC 36.3(H) 32.3 - 35.7 g/dL [facility] RDW CV 15.3(H) 11.1 - 14.9 % [facility] RDW SD 45.3 35.7 - 48.1 fL [facility] NRBC abs 0.00 0.00 - 0.01 K/cumm [facility] Blood 03/27/2025 12:1 5 PM CDT 03/27/2025 12:30 PM CDT us Jeremiah Dalal MD LAB BLOOD ORDERABLES Final R esult Performing Organization Address City/[facility] Co de Phone Number [facility] [place] [employer] [place] [address] * (ABNORMAL) Lactate, whole blood (03/27/2025 12:15 PM CDT) [facility] Lactate, bld 2.7(H) 0.7 - 2.0 mmol/L Blood 03/27/2025 12:1 5 PM CDT 03/27/2025 12:30 PM CDT us Jeremiah Dalal MD LAB BLOOD ORDERABLES Final R esult [facility] [place] [employer] [place] [address] * XR Chest 1 View (03/27/2025 12:10 PM CDT) Anatomical Region Laterality Modality Body, Chest N/A Digital Radiogra phy 03/27/2025 1:52 PM CDT Impressions 03/28/2025 8:12 AM CDT The current study is compared with the prior radiograph dated 03/27/2025 at 6:26 AM. An endotracheal tube is approximately 3 centimeters above the sanford, retracted from prior. Feeding tube courses below the diaphragm and out of the [id number]. A right internal jugular introducer is in place. A left internal jugular catheter is in place, tip overlies the superior vena cava. Transcatheter aortic valve replacement. Esophageal temperature probe in place. Small lung volumes. Small bilateral pleural effusions with mildly increased left greater than right basilar atelectasis. No pneumothorax. Unchanged cardiomediastinal silhouette. Atherosclerosis of the aortic arch. The radiology attending physician has personally reviewed this study, and had reviewed and/or edited this written report and agrees with it. Electronically signed by: Gee Clarke M.D. Narrative 03/28/2025 8:12 AM CDT EXAMINATION: 1 view chest radiograph Procedure Note Gee Clarke MD - 03/28/2025 EXAMINATION: 1 view chest radiograph IMPRESSION: The current study is compared with the prior radiograph dated 03/27/2025 at 6:26 AM. An endotracheal tube is approximately 3 centimeters above the sanford, retracted from prior. Feeding tube courses below the diaphragm and out of the [id number]. A right internal jugular introducer is in place. A left internal jugular catheter is in place, tip overlies the superior vena cava. Transcatheter aortic valve replacement. Esophageal temperature probe in place. Small lung volumes. Small bilateral pleural effusions with mildly increased left greater than right basilar atelectasis. No pneumothorax. Unchanged cardiomediastinal silhouette. Atherosclerosis of the aortic arch. The radiology attending physician has personally reviewed this study, and had reviewed and/or edited this written report and agrees with it. Electronically signed by: Gee Clarke M.D. Jeremiah Dalal MD IMG XR PROCEDURES Final Resu lt * POCT glucose (03/27/2025 10:47 AM CDT) Glucose, POC 192 70 - 199 mg/dL Blood 03/27/2025 10:4 7 AM CDT 03/27/2025 10:47 AM CDT Jeremiah Dalal MD LAB POCT ORDERABLES - DEVICE Final Result [facility] Department [place] [address] * (ABNORMAL) Aerobic culture and gram stain Sputum Tracheal (03/27/2025 8:48 AM CDT) Direct Specimen Exam Stain: Abundant polymorphonuclear leukocytes seen. Few squamous epithelial cells seen. Abundant Mixed bacterial mayito seen on Gram stain. Report Final Report: Moderate Citrobacter koseri Moderate Klebsiella pneumoniae Plus growth of clinically insignificant bacterial mayito. (.) [facility] Organism PLUS GROWTH OF CLINICALLY INSIGNIFICANT [place]. [facility] Organism CITROBACTER KOSERI [facility] Organism KLEBSIELLA PNEUMONIAE [facility] Sputum (Tracheal) 03/27/2025 8:48 AM CDT 03/27/2025 10:05 AM CDT Narrative [facility] - 03/31/2025 12:34 PM CDT Testing performed by [facility] ([phone]) Specimens submitted from normally sterile body sites will have all bacterial morphotypes identified. Specimens that contain grossly mixed mayito and/or are from body sites that are not normally sterile will be examined for Staphylococcus aureus, Pseudomonas aeruginosa, beta-hemolytic strep, vancomycin-resistant Enterococcus and fungus. If any of these are isolated, the organism will be reported. Current interpretive data was last revised on 2017. Organism Antibiotic Method Susceptibility Citrobacter koseri Ampicillin INTERPRETATION Resistant Citrobacter koseri Cefazolin INTERPRETATION Susceptible Citrobacter koseri Gentamicin INTERPRETATION Susceptible Citrobacter koseri Ampicillin with Sulbactam INTERPRET ATION Intermediate Citrobacter koseri Trimethoprim with Sulfamethoxazole INTERPRETATION Susceptible Citrobacter koseri Meropenem INTERPRETATION Susceptible Citrobacter koseri Cefepime INTERPRETATION Susceptible Citrobacter koseri Ciprofloxacin INTERPRETATION Susceptible Citrobacter koseri Ceftazidime INTERPRETATION Susceptible Citrobacter koseri Ceftriaxone INTERPRETATION Susceptible Citrobacter koseri Piperacillin/Tazobactam INTERPRETAT ION Susceptible Klebsiella pneumoniae Ampicillin INTERPRETATION Resistant Klebsiella pneumoniae Cefazolin INTERPRETATION Susceptible Klebsiella pneumoniae Gentamicin INTERPRETATION Susceptible Klebsiella pneumoniae Ampicillin with Sulbactam INTERP RETATION Susceptible Klebsiella pneumoniae Trimethoprim with Sulfamethoxazole INTERPRETATION Susceptible Klebsiella pneumoniae Meropenem INTERPRETATION Susceptible Klebsiella pneumoniae Cefepime INTERPRETATION Susceptible Klebsiella pneumoniae Ciprofloxacin INTERPRETATION Susceptible Klebsiella pneumoniae Ceftazidime INTERPRETATION Susceptible Klebsiella pneumoniae Ceftriaxone INTERPRETATION Susceptible Klebsiella pneumoniae Piperacillin/Tazobactam INTERPRE TATION Intermediate us Jeremiah Dalal MD LAB MICROBIOLOGY - GENERAL O RDERABLES Final Result Performing Organization Address City/[facility]/ZIP Co de Phone Number [facility] Department [place] [address] * (ABNORMAL) Lactate, whole blood (03/27/2025 8:39 AM CDT) [facility] Lactate, bld 2.1(H) 0.7 - 2.0 mmol/L Blood 03/27/2025 8:39 AM CDT 03/27/2025 8:57 AM CDT us Jeremiah Dalal MD LAB BLOOD ORDERABLES Final R esult Performing Organization Address [facility] Co de Phone Number [facility] Department [place] [address] * (ABNORMAL) Blood gas, arterial (03/27/2025 8:39 AM CDT) Pathologist [facility] pH, Art 7.50(H) 7.35 - 7.45 PCO2, Arterial 31(L) 35 - 45 mmHg [facility] PO2, Arterial 73(L) 83 - 108 mmHg [facility] HCO3 Art (Calculated) 26 20 - 30 mmol/L [facility] BE, art 2 mmol/L [facility] Comment: Interpretive Data No Reference Range Established Current Interpretive Data was last revised on 2017 O2 Sat Art (Measured) 96(H) 90 - 95 % [facility] Blood 03/27/2025 8:39 AM CDT 03/27/2025 8:57 AM CDT us Sonny Roque MD PhD LAB BLOOD ORDERABLES Final Res ult Performing Organization Address [facility] Co de Phone Number [facility] Department [place] [address] * POCT glucose (03/27/2025 7:22 AM CDT) Glucose, POC 197 70 - 199 mg/dL Blood 03/27/2025 7:22 AM CDT 03/27/2025 7:22 AM CDT us Jeremiah Dalal MD LAB POCT ORDERABLES - DEVICE Final Result Performing Organization Address [facility] Co de Phone Number [facility] Department [place] [address] * XR Chest 1 View (03/27/2025 6:40 AM CDT) Anatomical Region Laterality Modality Body, Chest N/A Computed Radiogr aphy 03/27/2025 10:0 2 AM CDT Impressions 03/27/2025 10:29 AM CDT First exam: An endotracheal tube is approximately 2 centimeters above the sanford. Right internal jugular sheath in place. Left internal jugular central venous catheter in the superior vena cava. Feeding tube courses below the left hemidiaphragm. Transcatheter aortic valve replacement. Small lung volumes. Mild bibasilar atelectasis. Trace bilateral pleural effusions. No pneumothorax. Stable enlarged cardiac silhouette. Second exam: An endotracheal tube is approximately 1.5 centimeters above the sanford. Otherwise, significant change compared to the 1st exam. Dictated by: Rebekah Lopes MD The radiology attending physician has personally reviewed this study, and had reviewed and/or edited this written report and agrees with it. Electronically signed by: Sonny Hogue M.D. Narrative 03/27/2025 10:29 AM CDT Examination: 2 portable chests 1. Chest one view portable 03/27/2025 1:11 AM 2. Chest one view portable 03/27/2025 6:26 AM COMPARISON: 03/26/2025 Procedure Note Sonny Hogue MD - 03/27/2025 Examination: 2 portable chests 1. Chest one view portable 03/27/2025 1:11 AM 2. Chest one view portable 03/27/2025 6:26 AM COMPARISON: 03/26/2025 IMPRESSION: First exam: An endotracheal tube is approximately 2 centimeters above the sanford. Right internal jugular sheath in place. Left internal jugular central venous catheter in the superior vena cava. Feeding tube courses below the left hemidiaphragm. Transcatheter aortic valve replacement. Small lung volumes. Mild bibasilar atelectasis. Trace bilateral pleural effusions. No pneumothorax. Stable enlarged cardiac silhouette. Second exam: An endotracheal tube is approximately 1.5 centimeters above the sanford. Otherwise, significant change compared to the 1st exam. Dictated by: Rebekah Lopes MD The radiology attending physician has personally reviewed this study, and had reviewed and/or edited this written report and agrees with it. Electronically signed by: Sonny Hogue M.D. us Jeremiah Dalal MD IMG XR PROCEDURES Final Resu lt * (ABNORMAL) POCT glucose (03/27/2025 4:03 AM CDT) Glucose, POC 208(H) 70 - 199 mg/dL Blood 03/27/2025 4:03 AM CDT 03/27/2025 4:03 AM CDT us Jeremiah Dalal MD LAB POCT ORDERABLES - DEVICE Final Result [facility] Department [place] [address] * Oxyhemoglobin, central venous (03/27/2025 3:58 AM CDT) Oxyhemoglobin, CV 77.2 % Comment: Interpretive Data No reference range established. Current interpretive data was last revised 2020. Blood 03/27/2025 3:58 AM CDT 03/27/2025 4:16 AM CDT Jeremiah Dalal MD LAB BLOOD ORDERABLES Final R esult Performing Organization Address [facility] Co de Phone Number [facility] [place] [address] * (ABNORMAL) eGFR (03/27/2025 3:58 AM CDT) Pathologist [facility] eGFR 37(L) >=60 mL/min/1. 73 m2 Comment: Interpretive Data Reference Interval Normal >/= 90 mL/min/1.73m2 Mildly decreased* 60 - 89 mL/min/1.73m2 Mildly to moderately decreased 45 - 59 mL/min/1.73m2 Moderately to severely decreased 30 - 44 mL/min/1.73m2 Severely decreased 15 - 29 mL/min/1.73m2 Kidney Failure < 15 mL/min/1.73m2 *Relative to young adult level Estimated glomerular filtration rate is determined by the 2020 CKD-EPI equation recommended by the National Kidney Foundation (A Unifying Approach to GFR Estimation: Recommendations of the NKF-ASK Task Force on Reassessing the Inclusion of Race in Diagnosing Kidney Disease, JASN 2020). The CKD-EPI equation should not be used for patients with unstable renal function and has not been validated in children and those over 70. Current interpretive data was last reviewed 2021. Blood 03/27/2025 3:58 AM CDT 03/27/2025 4:18 AM CDT us Jeremiah Dalal MD LAB BLOOD ORDERABLES Final R esult Performing Organization Address [facility]/ZIP Co de Phone Number [facility] Department [place] [address] * (ABNORMAL) Differential, auto (03/27/2025 3:58 AM CDT) Neutrophil abs 11.23(H) 1.50 - 6.50 K/cumm Imm gran abs 0.10 0.00 - 0.10 K/cumm [facility] Lymphocyte abs 0.90 0.80 - 3.30 K/cumm [facility] Monocyte abs 0.91(H) 0.20 - 0.80 K/cumm [facility] Eosinophil abs 0.07 0.00 - 0.50 K/cumm [facility] Basophil abs 0.03 0.00 - 0.10 K/cumm [facility] Neutrophil pct 84.8 % [facility] Comment: Interpretive Data Percent cell count reference ranges are not reported, since discordance with absolute values may lead to misinterpretation of CBC data. Current Interpretive Data was last revised on 2018. Imm gran pct 0.8 % [facility] Comment: Interpretive Data Percent cell count reference ranges are not reported, since discordance with absolute values may lead to misinterpretation of CBC data. Current Interpretive Data was last revised on 2018. Lymphocyte pct 6.8 % [facility] Comment: Interpretive Data Percent cell count reference ranges are not reported, since discordance with absolute values may lead to misinterpretation of CBC data. Current Interpretive Data was last revised on 2018. Monocyte pct 6.9 % [facility] Comment: Interpretive Data Percent cell count reference ranges are not reported, since discordance with absolute values may lead to misinterpretation of CBC data. Current Interpretive Data was last revised on 2018. Eosinophil pct 0.5 % [facility] Comment: Interpretive Data Percent cell count reference ranges are not reported, since discordance with absolute values may lead to misinterpretation of CBC data. Current Interpretive Data was last revised on 2018. Basophil pct 0.2 % [facility] Comment: Interpretive Data Percent cell count reference ranges are not reported, since discordance with absolute values may lead to misinterpretation of CBC data. Current Interpretive Data was last revised on 2018. Blood 03/27/2025 3:58 AM CDT 03/27/2025 4:18 AM CDT us Jeremiah Dalal MD LAB BLOOD ORDERABLES Final R esult Performing Organization Address City/[facility]/ZIP Co de Phone Number [facility] [place] [address] * (ABNORMAL) Calcium, ionized (03/27/2025 3:58 AM CDT) Pathologist [facility] Calcium, Ionized 4.48(L) 4.50 - 5.10 mg/dL Blood 03/27/2025 3:58 AM CDT 03/27/2025 4:15 AM CDT us Jeremiah Dalal MD LAB BLOOD ORDERABLES Final R esult Performing Organization Address [facility] Co de Phone Number [facility] [place] [address] * (ABNORMAL) CBC with auto differential (03/27/2025 3:58 AM CDT) [facility] WBC 13.24(H) 3.80 - 9.90 K/cumm Hgb 13.3 11.9 - 15.5 g/dL [facility] Hct 36.7 35.6 - 45.5 % [facility] Plt 83(L) 150 - 400 K/cumm [facility] MPV 10.6 9.1 - 12.3 fL [facility] RBC 4.46 3.90 - 5.20 M/cumm [facility] MCV 82.3 81.3 - 96.4 fL [facility] MCH 29.8 27.1 - 33.3 pg [facility] MCHC 36.2(H) 32.3 - 35.7 g/dL [facility] RDW CV 14.6 11.1 - 14.9 % [facility] RDW SD 42.9 35.7 - 48.1 fL [facility] NRBC abs 0.00 0.00 - 0.01 K/cumm [facility] Blood 03/27/2025 3:58 AM CDT 03/27/2025 4:18 AM CDT us Jeremiah Dalal MD LAB BLOOD ORDERABLES Final R esult Performing Organization Address [facility] Co de Phone Number [facility] [place] [address] * (ABNORMAL) Lactate, whole blood (03/27/2025 3:58 AM CDT) Lactate, bld 2.1(H) 0.7 - 2.0 mmol/L Blood 03/27/2025 3:58 AM CDT 03/27/2025 4:16 AM CDT us Sonny Roque MD PhD LAB BLOOD ORDERABLES Final Res ult Performing Organization Address [facility] de Phone Number [facility] Department [place] [address] * Phosphorus (03/27/2025 3:58 AM CDT) Phosphorus, pl 3.5 2.3 - 4.5 mg/dL Blood 03/27/2025 3:58 AM CDT 03/27/2025 4:18 AM CDT us Jeremiah Dalal MD LAB BLOOD ORDERABLES Final R esult Performing Organization Address [facility] Co de Phone Number [facility] Department [place] [address] * Magnesium (03/27/2025 3:58 AM CDT) Magnesium 1.8 1.4 - 2.5 mg/dL Blood 03/27/2025 3:58 AM CDT 03/27/2025 4:18 AM CDT us Jeremiah Dalal MD LAB BLOOD ORDERABLES Final R esult Performing Organization Address [facility] de Phone Number [facility] Department [place] [address] * (ABNORMAL) Blood gas, arterial (03/27/2025 3:58 AM CDT) pH, Art 7.55(H) 7.35 - 7.45 PCO2, Arterial 26(L) 35 - 45 mmHg [facility] PO2, Arterial 69(L) 83 - 108 mmHg [facility] HCO3 Art (Calculated) 23 20 - 30 mmol/L [facility] BE, art 2 mmol/L [facility] Comment: Interpretive Data No Reference Range Established Current Interpretive Data was last revised on 2017 O2 Sat Art (Measured) 96(H) 90 - 95 % [facility] Blood 03/27/2025 3:58 AM CDT 03/27/2025 4:16 AM CDT Jeremiah Dalal MD LAB BLOOD ORDERABLES Final R esult Performing Organization Address [facility] de Phone Number [facility] Department [place] [address] * Lipid panel (03/27/2025 3:58 AM CDT) Cholesterol 88 30 - 199 mg/dL Comment: Interpretive Data Ages < or = 19 years Acceptable: <170 mg/dL Borderline high: 170-199 mg/dL High: >or= 200 mg/dL Ages > or = 20 years Desirable: <200 mg/dL Borderline high: 200-239 mg/dL High: >or= 240 mg/dL Literature References: 1. Expert Panel on Integrated Guidelines for Cardiovascular Health and Risk Reduction in Children and Adolescents. Pediatrics 2011;128:S213 2. NCEP Expert Panel. Circulation 2004;110:227 Current Interpretive Data was last revised on 2018. Triglycerides 59 <=149 mg/dL [facility] Comment: Interpretive Data Ages < or = 9 years Acceptable: <75 mg/dL Borderline high: 75-99 mg/dL High: >or= 100 mg/dL Ages 10 to 20 years Acceptable: <90 mg/dL Borderline high: 90-129 mg/dL High: >or= 130 mg/dL Ages > or = 20 years Desirable: <150 mg/dL Borderline high: 150-199 mg/dL High: 200-499 mg/dL Very high: >or= 499 mg/dL Literature References: 1. Expert Panel on Integrated Guidelines for Cardiovascular Health and Risk Reduction in Children and Adolescents. Pediatrics 2011;128:S213 2. NCEP Expert Panel. Circulation 2004;110:227 Current Interpretive Data was last revised on 2018. HDL 44 >=40 mg/dL [facility] Comment: Interpretive Data Ages < or = 19 years Acceptable: >45 mg/dL Borderline low: 40-45 mg/dL Low: <40 mg/dL Ages > or = 20 years Desirable: >or= 60 mg/dL Low: <40 mg/dL Literature References: 1. Expert Panel on Integrated Guidelines for Cardiovascular Health and Risk Reduction in Children and Adolescents. Pediatrics 2011;128:S213 2. NCEP Expert Panel. Circulation 2004;110:227 Current Interpretive Data was last revised on 2018. LDL, calculated 30 <=129 mg/dL [facility] Comment: Interpretive Data Ages < or = 19 years Acceptable: <110 mg/dL Borderline high: 110-129 mg/dL High: >or= 130 mg/dL Ages > or = 20 years Optimal: <100 mg/dL Near optimal: 100-129 mg/dL Borderline high: 130-159 mg/dL High: >160 mg/dL Calculated using the Jose Ramon LDL-C estimating equation. This equation was implemented on 2024. Prior to this date LDL-C was estimated using the Friedewald equation. Literature References: 1. Expert Panel on Integrated Guidelines for Cardiovascular Health and Risk Reduction in Children and Adolescents. Pediatrics 2011;128:S213 2. NCEP Expert Panel. Circulation 2004;110:227 3. Jose Ramon Nathan al. ANDRE Cardiol. 2020 February 14;5(5):540-548. doi: [email or web address] Current Interpretive Data was last revised on 2024. Non-HDL Cholesterol 44 mg/dL [facility] Comment: Interpretive Data Ages < or = 19 years Acceptable: <120 mg/dL Borderline high: 120-144 mg/dL High: >145 mg/dL Ages > or = 20 years When triglycerides are >200 mg/dL, Non-HDL cholesterol is a secondary target of therapy with treatment goals that are 30 mg/dL greater than the LDL cholesterol target. Literature References: 1. Expert Panel on Integrated Guidelines for Cardiovascular Health and Risk Reduction in Children and Adolescents. Pediatrics 2011;128:S213 2. NCEP Expert Panel. Circulation 2004;110:227 Current Interpretive Data was last revised on 2018. Chol/HDL ratio 2 [facility] Blood 03/27/2025 3:58 AM CDT 03/27/2025 4:18 AM CDT Jeremiah Dalal MD LAB BLOOD ORDERABLES Final R esult [facility] [place] [address] * (ABNORMAL) Comprehensive metabolic panel (03/27/2025 3:58 AM CDT) Sodium 139 135 - 145 mmol/L Potassium, pl 4.3 3.3 - 4.9 mmol/L [facility] Chloride 104 97 - 110 mmol/L [facility] CO2 24 22 - 32 mmol/L [facility] Anion gap 11 2 - 15 mmol/L [facility] BUN 24 6 - 25 mg/dL [facility] Creatinine 1.49(H) 0.60 - 1.10 mg/dL [facility] Glucose 214(H) 70 - 199 mg/dL [facility] Comment: Interpretive Data Fasting glucose >/= 126 mg/dl is diagnostic for diabetes. Fasting is defined as no caloric intake for at least 8 hours. Fasting glucose between 100 mg/dl to 125 mg/dl is diagnostic of prediabetes. In a patient with classic symptoms of hyperglycemia or hyperglycemic crisis, a random glucose >/= 200 mg/dl is diagnostic for diabetes. In the absence of unequivocal hyperglycemia, results should be confirmed by repeat testing. The classification and Diagnosis of Diabetes Diabetes Care 202; 46: S19-S40. Current interpretive data was last revised 2022. Calcium 9.1 8.5 - 10.3 mg/dL [facility] Bilirubin, total 1.2 0.1 - 1.2 mg/dL [facility] Protein, pl 5.5(L) 6.5 - 8.5 g/dL [facility] Albumin 3.0(L) 3.5 - 5.0 g/dL [facility] Alk phos 85 40 - 130 Units/L [facility] ALT 62(H) 7 - 45 Units/L [facility] AST 68(H) 10 - 45 Units/L [facility] Blood 03/27/2025 3:58 AM CDT 03/27/2025 4:18 AM CDT us Jeremiah Dalal MD LAB BLOOD ORDERABLES Final R esult [facility] [place] [address] * XR Chest 1 View (03/27/2025 1:40 AM CDT) Anatomical Region Laterality Modality Body, Chest N/A Computed Radiogr aphy 03/27/2025 10:0 2 AM CDT Impressions 03/27/2025 10:29 AM CDT First exam: An endotracheal tube is approximately 2 centimeters above the sanford. Right internal jugular sheath in place. Left internal jugular central venous catheter in the superior vena cava. Feeding tube courses below the left hemidiaphragm. Transcatheter aortic valve replacement. Small lung volumes. Mild bibasilar atelectasis. Trace bilateral pleural effusions. No pneumothorax. Stable enlarged cardiac silhouette. Second exam: An endotracheal tube is approximately 1.5 centimeters above the sanford. Otherwise, significant change compared to the 1st exam. Dictated by: Rebekah Lopes MD The radiology attending physician has personally reviewed this study, and had reviewed and/or edited this written report and agrees with it. Electronically signed by: Sonny Hogue M.D. Narrative 03/27/2025 10:29 AM CDT Examination: 2 portable chests 1. Chest one view portable 03/27/2025 1:11 AM 2. Chest one view portable 03/27/2025 6:26 AM COMPARISON: 03/26/2025 Procedure Note Sonny Hogue MD - 03/27/2025 Examination: 2 portable chests 1. Chest one view portable 03/27/2025 1:11 AM 2. Chest one view portable 03/27/2025 6:26 AM COMPARISON: 03/26/2025 IMPRESSION: First exam: An endotracheal tube is approximately 2 centimeters above the sanford. Right internal jugular sheath in place. Left internal jugular central venous catheter in the superior vena cava. Feeding tube courses below the left hemidiaphragm. Transcatheter aortic valve replacement. Small lung volumes. Mild bibasilar atelectasis. Trace bilateral pleural effusions. No pneumothorax. Stable enlarged cardiac silhouette. Second exam: An endotracheal tube is approximately 1.5 centimeters above the sanford. Otherwise, significant change compared to the 1st exam. Dictated by: Rebekah Lopes MD The radiology attending physician has personally reviewed this study, and had reviewed and/or edited this written report and agrees with it. Electronically signed by: Sonny Hogue M.D. us Jeremiah Dalal MD IMG XR PROCEDURES Final Resu lt * POCT glucose (03/26/2025 11:53 PM CDT) [facility] Glucose, POC 195 70 - 199 mg/dL Blood 03/26/2025 11:5 3 PM CDT 03/26/2025 11:53 PM CDT us Jeremiah Dalal MD LAB POCT ORDERABLES - DEVICE Final Result [facility] Department [place] [address] * (ABNORMAL) eGFR (03/26/2025 11:43 PM CDT) [facility] eGFR 34(L) >=60 mL/min/1. 73 m2 Comment: Interpretive Data Reference Interval Normal >/= 90 mL/min/1.73m2 Mildly decreased* 60 - 89 mL/min/1.73m2 Mildly to moderately decreased 45 - 59 mL/min/1.73m2 Moderately to severely decreased 30 - 44 mL/min/1.73m2 Severely decreased 15 - 29 mL/min/1.73m2 Kidney Failure < 15 mL/min/1.73m2 *Relative to young adult level Estimated glomerular filtration rate is determined by the 2020 CKD-EPI equation recommended by the National Kidney Foundation (A Unifying Approach to GFR Estimation: Recommendations of the NKF-ASK Task Force on Reassessing the Inclusion of Race in Diagnosing Kidney Disease, JASN 2020). The CKD-EPI equation should not be used for patients with unstable renal function and has not been validated in children and those over 70. Current interpretive data was last reviewed 2021. Blood 03/26/2025 11:4 3 PM CDT 03/26/2025 11:59 PM CDT us Sonny Roque MD PhD LAB BLOOD ORDERABLES Final Res ult Performing Organization Address City/[facility]/ZIP Co de Phone Number [facility] Department [place] [employer] [place] [address] * Thyroid Function [place] (03/26/2025 11:43 PM CDT) TSH 1.05 0.30 - 4.20 mcIUnit/mL Blood 03/26/2025 11:4 3 PM CDT 03/26/2025 11:59 PM CDT us Sonny Roque MD PhD LAB BLOOD ORDERABLES Final Res ult [facility] [employer] [place] [employer] [place] [address] * (ABNORMAL) Comprehensive metabolic panel (03/26/2025 11:43 PM CDT) Sodium 139 135 - 145 mmol/L Potassium, pl 4.6 3.3 - 4.9 mmol/L [facility] Chloride 104 97 - 110 mmol/L [facility] CO2 24 22 - 32 mmol/L [facility] Anion gap 11 2 - 15 mmol/L [facility] BUN 24 6 - 25 mg/dL [facility] Creatinine 1.59(H) 0.60 - 1.10 mg/dL [facility] Glucose 196 70 - 199 mg/dL [facility] Comment: Interpretive Data Fasting glucose >/= 126 mg/dl is diagnostic for diabetes. Fasting is defined as no caloric intake for at least 8 hours. Fasting glucose between 100 mg/dl to 125 mg/dl is diagnostic of prediabetes. In a patient with classic symptoms of hyperglycemia or hyperglycemic crisis, a random glucose >/= 200 mg/dl is diagnostic for diabetes. In the absence of unequivocal hyperglycemia, results should be confirmed by repeat testing. The classification and Diagnosis of Diabetes Diabetes Care 2021; 46: S19-S40. Current interpretive data was last revised 2022. Calcium 9.2 8.5 - 10.3 mg/dL [facility] Bilirubin, total 1.1 0.1 - 1.2 mg/dL [facility] Protein, pl 5.4(L) 6.5 - 8.5 g/dL [facility] Albumin 3.0(L) 3.5 - 5.0 g/dL [facility] Alk phos 79 40 - 130 Units/L [facility] ALT 63(H) 7 - 45 Units/L [facility] AST 78(H) 10 - 45 Units/L [facility] Blood 03/26/2025 11:4 3 PM CDT 03/26/2025 11:59 PM CDT us Sonny Roque MD PhD LAB BLOOD ORDERABLES Final Res ult [facility] Department [place] [address] * Lactate, whole blood (03/26/2025 11:34 PM CDT) Lactate, bld 2.0 0.7 - 2.0 mmol/L Blood 03/26/2025 11:3 4 PM CDT 03/26/2025 11:52 PM CDT Sonny Roque MD PhD LAB BLOOD ORDERABLES Final Res ult Performing Organization Address [facility] de Phone Number [facility] [place] [address] * (ABNORMAL) Blood gas, arterial (03/26/2025 11:34 PM CDT) pH, Art 7.49(H) 7.35 - 7.45 PCO2, Arterial 32(L) 35 - 45 mmHg [facility] PO2, Arterial 64(L) 83 - 108 mmHg [facility] HCO3 Art (Calculated) 25 20 - 30 mmol/L [facility] BE, art 2 mmol/L [facility] Comment: Interpretive Data No Reference Range Established Current Interpretive Data was last revised on 2017 O2 Sat Art (Measured) 95 90 - 95 % [facility] Blood 03/26/2025 11:3 4 PM CDT 03/26/2025 11:52 PM CDT Sonny Roque MD PhD LAB BLOOD ORDERABLES Final Res t Performing Organization Address [facility] de Phone Number [facility] Department [place] [address] * (ABNORMAL) Troponin I high-sensitivity 4-hour (03/26/2025 11:30 PM CDT) Trop I hs 2,014(C) <=17 ng/L Comment: Previous critical value noted within 48 hours ago. Interpretive Data For further hscTnI resources including the diagnostic algorithm and an aid in interpretation, copy and paste this link: [email or web address] Current Interpretive Data last revised 2020. Trop I hs pct delta -30(C) % [facility] Trop I hs interp Significa nt(C) [facility] Blood 03/26/2025 11:3 0 PM CDT 03/26/2025 11:57 PM CDT Jeremiah Dalal MD LAB BLOOD ORDERABLES Final R esult Performing Organization Address [facility] Co de Phone Number [facility] [place] [address] * Oxyhemoglobin, central venous (03/26/2025 11:30 PM CDT) Pathologist [facility] Oxyhemoglobin, CV 74.1 % Comment: Interpretive Data No reference range established. Current interpretive data was last revised 2020. Blood 03/26/2025 11:3 0 PM CDT 03/26/2025 11:52 PM CDT Jeremiah Dalal MD LAB BLOOD ORDERABLES Final R esult Performing Organization Address [facility] Co de Phone Number [facility] [place] [address] * (ABNORMAL) Differential, auto (03/26/2025 11:30 PM CDT) Pathologist [facility] Neutrophil abs 10.93(H) 1.50 - 6.50 K/cumm Imm gran abs 0.12(H) 0.00 - 0.10 K/cumm [facility] Lymphocyte abs 0.80 0.80 - 3.30 K/cumm [facility] Monocyte abs 1.09(H) 0.20 - 0.80 K/cumm [facility] Eosinophil abs 0.00 0.00 - 0.50 K/cumm [facility] Basophil abs 0.04 0.00 - 0.10 K/cumm [facility] Neutrophil pct 84.2 % [facility] Comment: Interpretive Data Percent cell count reference ranges are not reported, since discordance with absolute values may lead to misinterpretation of CBC data. Current Interpretive Data was last revised on 2018. Imm gran pct 0.9 % [facility] Comment: Interpretive Data Percent cell count reference ranges are not reported, since discordance with absolute values may lead to misinterpretation of CBC data. Current Interpretive Data was last revised on 2018. Lymphocyte pct 6.2 % [facility] Comment: Interpretive Data Percent cell count reference ranges are not reported, since discordance with absolute values may lead to misinterpretation of CBC data. Current Interpretive Data was last revised on 2018. Monocyte pct 8.4 % [facility] Comment: Interpretive Data Percent cell count reference ranges are not reported, since discordance with absolute values may lead to misinterpretation of CBC data. Current Interpretive Data was last revised on 2018. Eosinophil pct 0.0 % [facility] Comment: Interpretive Data Percent cell count reference ranges are not reported, since discordance with absolute values may lead to misinterpretation of CBC data. Current Interpretive Data was last revised on 2018. Basophil pct 0.3 % [facility] Comment: Interpretive Data Percent cell count reference ranges are not reported, since discordance with absolute values may lead to misinterpretation of CBC data. Current Interpretive Data was last revised on 2018. Blood 03/26/2025 11:3 0 PM CDT 03/26/2025 11:57 PM CDT us Jeremiah Dalal MD LAB BLOOD ORDERABLES Final R esult [facility] Department [place] [address] * (ABNORMAL) CBC with auto differential (03/26/2025 11:30 PM CDT) WBC 12.98(H) 3.80 - 9.90 K/cumm Hgb 13.3 11.9 - 15.5 g/dL [facility] Hct 36.2 35.6 - 45.5 % [facility] Plt 67(L) 150 - 400 K/cumm [facility] MPV 10.2 9.1 - 12.3 fL [facility] RBC 4.39 3.90 - 5.20 M/cumm [facility] MCV 82.5 81.3 - 96.4 fL [facility] MCH 30.3 27.1 - 33.3 pg [facility] MCHC 36.7(H) 32.3 - 35.7 g/dL [facility] RDW CV 14.5 11.1 - 14.9 % [facility] RDW SD 42.5 35.7 - 48.1 fL [facility] NRBC abs 0.00 0.00 - 0.01 K/cumm [facility] Blood 03/26/2025 11:3 0 PM CDT 03/26/2025 11:57 PM CDT Jeremiah Dalal MD LAB BLOOD ORDERABLES Final R esult [facility] Department [place] [address] * Blood culture Blood (03/26/2025 11:30 PM CDT) Report Final Report: No growth Blood 03/26/2025 11:3 0 PM CDT 03/27/2025 12:16 AM CDT Narrative [facility] - 03/31/2025 7:00 AM CDT 1. Blood cultures are incubated for 4 days on a continuously monitored blood culture system. The first report of a negative culture is issued within 24 hours of receipt of the specimen in the laboratory. 2. Positive culture results are reported as soon as they are detected. 3. The most important factor for detection of microbes in the setting of bloodstream infection is the volume of blood submitted for culture. Failure to collect an optimal blood volume can result in false negative blood cultures. 4. For pediatric patients, the recommended blood volume to collect follows a weight based strategy. See the electronic test catalog for collection instructions. 5. For positive blood cultures, a rapid molecular test may be performed for organism identification using the pawel ePlex blood culture identification panel for gram positive (BCID-GP) and gram negative (BCID-GN) organisms. This nucleic acid amplification test detects microbial DNA in positive blood culture broth. This assay has been cleared by the [place] Food and Drug Administration and its performance characteristics have been verified by the [facility]. For questions about this culture, contact the Microbiology Laboratory at [phone]. Interpretive data was last revised on 24. us Jeremiah Dalal MD LAB MICROBIOLOGY - GENERAL O RDERABLES Final Result Performing Organization Address [facility]/ZIP Co de Phone Number [facility] Department [place] [address] * Blood culture Blood (03/26/2025 11:30 PM CDT) Report Final Report: No growth Blood 03/26/2025 11:3 0 PM CDT 03/27/2025 12:16 AM CDT [facility] 03/31/2025 7:00 AM CDT 1. Blood cultures are incubated for 4 days on a continuously monitored blood culture system. The first report of a negative culture is issued within 24 hours of receipt of the specimen in the laboratory. 2. Positive culture results are reported as soon as they are detected. 3. The most important factor for detection of microbes in the setting of bloodstream infection is the volume of blood submitted for culture. Failure to collect an optimal blood volume can result in false negative blood cultures. 4. For pediatric patients, the recommended blood volume to collect follows a weight based strategy. See the electronic test catalog for collection instructions. 5. For positive blood cultures, a rapid molecular test may be performed for organism identification using the pawel ePlex blood culture identification panel for gram positive (BCID-GP) and gram negative (BCID-GN) organisms. This nucleic acid amplification test detects microbial DNA in positive blood culture broth. This assay has been cleared by the [place] Food and Drug Administration and its performance characteristics have been verified by the [facility]. For questions about this culture, contact the Microbiology Laboratory at [phone]. Interpretive data was last revised on 24. us Jeremiah Dalal MD LAB MICROBIOLOGY - GENERAL O RDERABLES Final Result Performing Organization Address [facility]/ZIP Co de Phone Number CHARIS REYES [facility] Department [place] [address] * ECG 12 lead (03/26/2025 11:04 PM CDT) Ventricular Rate EKG/Min 87 BPM [facility] Atrial Rate 87 BPM [facility] CO-Interval (MSEC) 256 ms [facility] QRS-Interval (MSEC) 86 ms [facility] QT-Interval (MSEC) 398 ms [facility] QTc 478 ms [facility] P Howe 53 degrees [facility] R Howe 3 degrees [facility] T Howe 98 degrees [facility] Diagnosis Sinus rhythm with 1st degree A-V block Abnormal QRS-T angle, consider primary T wave abnormality Abnormal ECG When compared with ECG of 28-NOV-2018 17:18, T wave amplitude has decreased in Inferior leads Confirmed by OSIRIS LAZARO M.D ([id number]) on 03/27/2025 1:06:10 PM [facility] 03/26/2025 11:0 4 PM CDT 03/27/2025 1:06 PM CDT us Jeremiah Dalal MD ECG ORDERABLES Final Result [facility] * IR Embo Vasc Extravasation (03/26/2025 10:45 PM CDT) Anatomical Region Laterality Modality Body N/A X-Ray Angiograph y 03/26/2025 11:2 3 PM CDT Impressions 03/27/2025 8:30 AM CDT Small focus of active extravasation/pseudoaneurysm arising from distal right iliolumbar artery s/p successful coil and Obsidio embolization. PLAN: Left leg straight for 2 hours. Continue to trend hemoglobin Dictated by: Meseret Ku M.D. The radiology attending physician has personally reviewed this study, and had reviewed and/or edited this written report and agrees with it. Electronically signed by: Lc Winn M.D. Narrative 03/27/2025 8:30 AM CDT EXAMINATION: IR EMBO VASC EXTRAVASATION HISTORY/INDICATION: 74-year-old woman with right retroperitoneal hematoma s/p TAVR yesterday and two external iliac artery stent placement with continued hypotension and increasing presser requirements. ATTENDING PRESENCE: Lc Winn M.D., the attending radiologist was present from the beginning to the end of the procedure. SEDATION: The procedure was done under General Anesthesia. TECHNIQUE: The risks, benefits and alternatives were discussed and informed consent was obtained. Prior to beginning the procedure, [place] Protocol was performed to confirm the patient's identity and the planned procedure. The fluoroscopy time has been recorded in the electronic medical record. Maximum sterile barriers including cap, mask, hand hygiene, sterile gloves, sterile gown, large sterile drape and 2% chlorhexidine for cutaneous antisepsis were used. After sterile prep, the skin over the left groin was infiltrated with 1% Lidocaine. The right common femoral artery was punctured under real time ultrasound guidance. An image of the patent vessel was recorded. A 6Fr sheath was placed and connected to a heparinized saline drip. Omni Flush catheter was advanced into the abdominal aorta and pelvic angiography was performed. Using a combination of a 5-Montenegrin Omni flush catheter and C2 catheter with a Glidewire, the right internal iliac artery was catheterized and additional angiograms were performed. Using a 2.7-Montenegrin prograde microcatheter and the Fathom microwire, the right iliolumbar artery was cannulated and angiogram performed. The right iliolumbar artery was embolized with a single 2 mm x 6 cm Embold coil , followed by Obsidio conformable embolic. The following arteries were catheterized in sequences and diagnostic angiograms were performed: Aorta Right internal iliac artery Right iliolumbar artery (3rd order) Post embolization angiography was performed. After completion of embolization, the catheter was removed and a limited angiogram of the common femoral artery performed to confirm satisfactory position of arterial puncture site. Angioseal device was deployed to accomplish successful closure of the arteriotomy. ESTIMATED BLOOD LOSS: Minimal. CONDITION: Unchanged DISCHARGED TO: intensive care unit. FINDINGS: DIAGNOSTIC: Initial diagnostic arteriography did not demonstrated active extravasation or pseudoaneurysm. Selective right iliolumbar artery angiogram demonstrated a small active extravasation/pseudoaneurysm. THERAPEUTIC: Post embolization images demonstrate no forward flow pass the coil pack in the target artery. Procedure Note Lc Winn MD - 03/27/2025 EXAMINATION: IR EMBO VASC EXTRAVASATION HISTORY/INDICATION: 74-year-old woman with right retroperitoneal hematoma s/p TAVR yesterday and two external iliac artery stent placement with continued hypotension and increasing presser requirements. ATTENDING PRESENCE: Lc Winn M.D., the attending radiologist was present from the beginning to the end of the procedure. SEDATION: The procedure was done under General Anesthesia. TECHNIQUE: The risks, benefits and alternatives were discussed and informed consent was obtained. Prior to beginning the procedure, [place] Protocol was performed to confirm the patient's identity and the planned procedure. The fluoroscopy time has been recorded in the electronic medical record. Maximum sterile barriers including cap, mask, hand hygiene, sterile gloves, sterile gown, large sterile drape and 2% chlorhexidine for cutaneous antisepsis were used. After sterile prep, the skin over the left groin was infiltrated with 1% Lidocaine. The right common femoral artery was punctured under real time ultrasound guidance. An image of the patent vessel was recorded. A 6Fr sheath was placed and connected to a heparinized saline drip. Omni Flush catheter was advanced into the abdominal aorta and pelvic angiography was performed. Using a combination of a 5-Montenegrin Omni flush catheter and C2 catheter with a Glidewire, the right internal iliac artery was catheterized and additional angiograms were performed. Using a 2.7-Montenegrin prograde microcatheter and the Fathom microwire, the right iliolumbar artery was cannulated and angiogram performed. The right iliolumbar artery was embolized with a single 2 mm x 6 cm Embold coil , followed by Obsidio conformable embolic. The following arteries were catheterized in sequences and diagnostic angiograms were performed: Aorta Right internal iliac artery Right iliolumbar artery (3rd order) Post embolization angiography was performed. After completion of embolization, the catheter was removed and a limited angiogram of the common femoral artery performed to confirm satisfactory position of arterial puncture site. Angioseal device was deployed to accomplish successful closure of the arteriotomy. ESTIMATED BLOOD LOSS: Minimal. CONDITION: Unchanged DISCHARGED TO: intensive care unit. FINDINGS: DIAGNOSTIC: Initial diagnostic arteriography did not demonstrated active extravasation or pseudoaneurysm. Selective right iliolumbar artery angiogram demonstrated a small active extravasation/pseudoaneurysm. THERAPEUTIC: Post embolization images demonstrate no forward flow pass the coil pack in the target artery. IMPRESSION: Small focus of active extravasation/pseudoaneurysm arising from distal right iliolumbar artery s/p successful coil and Obsidio embolization. PLAN: Left leg straight for 2 hours. Continue to trend hemoglobin Dictated by: Meseret Ku M.D. The radiology attending physician has personally reviewed this study, and had reviewed and/or edited this written report and agrees with it. Electronically signed by: Lc Winn M.D. us Meseret Ku MD IMG IR PROCEDURES Final Resul t * (ABNORMAL) POC Blood Gas and Chemistries, Arterial - (03/26/2025 9:34 PM CDT) pH, Art POC 7.41 7.35 - 7.45 pCO2, Art POC 39 35 - 45 mmHg [facility] pO2, Art POC 125(H) 83 - 108 mmHg [facility] Na, POC 137 135 - 145 mmol/L [facility] K POC 4.0 3.3 - 4.9 mmol/L [facility] Comment: Interpretive Data Not all point of care methods assess for hemolysis. Confirm with instrument and retest K+ if not consistent with clinical signs and symptoms. Current Interpretive Data was last revised on 2024. Cl, POC 107 97 - 110 mmol/L [facility] Ionized Ca, POC 5.17(H) 4.50 - 5.10 mg/dL [facility] Glucose, POC 164 70 - 199 mg/dL [facility] Lactate POC 2.6(H) 0.7 - 2.0 mmol/L [facility] SO2 (luis alfredo) arterial 99(H) 90 - 95 % [facility] Base excess, POC 0.1 mmol/L [facility] HCO3, Art POC 25 20 - 30 mmol/L [facility] Hct, POC 39.0 36.3 - 45.3 % [facility] Total Hb, POC 13.0 11.9 - 15.5 g/dL [facility] Blood 03/26/2025 9:34 PM CDT 03/26/2025 9:34 PM CDT us Jeremiah Dalal MD LAB POCT ORDERABLES - DEVICE Final Result Performing Organization Address City/[facility]/ZIP Co de Phone Number [facility] [place] [address] * Prepare platelets (03/26/2025 8:56 PM CDT) Product code [id number] Unit Number [id number]- K [facility] Product Blood Type APOS [facility] Dispense Status PRESUMED TRANSFUSED [facility] Blood 03/26/2025 8:56 PM CDT 03/26/2025 8:57 PM CDT us Jeremiah Dalal MD BLOOD BANK PRODUCT ORDERABLE S Final Result Performing Organization Address [facility] Co de Phone Number [facility] Department [place] [address] * Prepare plasma (03/26/2025 8:56 PM CDT) Product code [id number] [facility] Unit Number [id number]- U [facility] Product Blood Type APOS [facility] Dispense Status RETURNED [facility] Product code [id number] [facility] Unit Number [id number]- E [facility] Product Blood Type APOS [facility] Dispense Status PRESUMED TRANSFUSED [facility] Product code [id number] [facility] Unit Number [id number]- E [facility] Product Blood Type APOS [facility] Dispense Status RETURNED [facility] Product code [id number] [facility] Unit Number [id number]- E [facility] Product Blood Type APOS [facility] Dispense Status RETURNED [facility] Product code [id number] Unit Number [id number] [facility] Product Blood Type APOS [facility] Dispense Status RETURNED [facility] Product code [id number] [facility] Unit Number [id number]- R [facility] Product Blood Type APOS [facility] Dispense Status RETURNED [facility] Blood 03/26/2025 8:56 PM CDT 03/26/2025 8:57 PM CDT us Jeremiah Dalal MD BLOOD BANK PRODUCT ORDERABLE S Final Result [facility] Department [place] [address] * Prepare RBC (03/26/2025 8:56 PM CDT) Pathologist [facility] Product code [id number] [facility] Unit Number [id number]- Y [facility] Product Blood Type ONEG [facility] Dispense Status RETURNED [facility] Product code [id number] Unit Number [id number] [facility] Product Blood Type ONEG [facility] Dispense Status PRESUMED TRANSFUSED [facility] Product code [id number] [facility] Unit Number [id number]- C [facility] Product Blood Type ONEG [facility] Dispense Status PRESUMED TRANSFUSED [facility] Product code [id number] [facility] Unit Number [id number]- V [facility] Product Blood Type ONEG [facility] Dispense Status PRESUMED TRANSFUSED [facility] Product code [id number] [facility] Unit Number [id number] [facility] Product Blood Type ONEG [facility] Dispense Status RETURNED [facility] Product code [id number] [facility] Unit Number [id number] [facility] Product Blood Type ONEG [facility] Dispense Status RETURNED [facility] Blood 03/26/2025 8:56 PM CDT 03/26/2025 8:56 PM CDT us Jeremiah Dalal MD BLOOD BANK PRODUCT ORDERABLE S Final Result [facility] Department [place] [address] * CT Abdomen Pelvis W WO Contrast (03/26/2025 8:46 PM CDT) Anatomical Region Laterality Modality Body N/A Computed Tomogra phy 03/26/2025 9:22 PM CDT Impressions 03/27/2025 7:14 PM CDT Large right retroperitoneal hematoma with small volume hemoperitoneum which overall is similar compared to prior, with a redemonstrated contrast blush within the hematoma which is present on the noncontrast phase which somewhat limits evaluation for ongoing active bleeding. Dictated by: Josué Grier MD The radiology attending physician has personally reviewed this study, and had reviewed and/or edited this written report and agrees with it. Electronically signed by: Jose Guadalupe Ivey M.D. Narrative 03/27/2025 7:14 PM CDT EXAMINATION: Computed tomography of the abdomen and pelvis with and without intravenous contrast HISTORY: Status post retroperitoneal with bleeding TECHNIQUE: Transaxial computed tomographic images of the abdomen and pelvis were obtained with and without intravenous contrast according to the ischemic bowel/GI bleeding protocol after the uneventful administration of 100 mL Opti-Ray 350 intravenous contrast. COMPARISON: Same day CT chest abdomen pelvis FINDINGS: Small bilateral, right greater than left, pleural effusions with bibasilar atelectasis. Heart size is normal. Aortic valve replacement. No pericardial effusion. Unchanged cystic lesion in the left hemiliver, likely a cyst. No suspicious hepatic lesion. Vicarious excretion of contrast in the gallbladder. Cholelithiasis. Spleen, pancreas, and adrenal glands are normal. Bilateral renal cysts. Kidneys enhance symmetrically without hydronephrosis. Contrast in the bilateral collecting systems. Urinary bladder is decompressed by Leo catheter. Moderate rectal stool burden. Colonic diverticulosis. High attenuation material about the colon and portions of the small bowel which limits evaluation for an active GI bleed. Gastric tube terminates in the gastric body. No free air. Small volume free fluid which measures higher than simple fluid attenuation. Abdominal aorta is normal in caliber with mild atherosclerotic calculations. Right common femoral artery and external iliac artery stent are patent. Diffuse soft tissue edema. Large right retroperitoneal hematoma which measures up to 13.6 x 20.6 x 22.5 cm with a redemonstrated layering contrast blush which overall is similar in size compared to prior. Degenerative changes in the spine. No suspicious osseous lesion. Procedure Note Jose Guadalupe Ivey MD PhD - 03/27/2025 EXAMINATION: Computed tomography of the abdomen and pelvis with and without intravenous contrast HISTORY: Status post retroperitoneal with bleeding TECHNIQUE: Transaxial computed tomographic images of the abdomen and pelvis were obtained with and without intravenous contrast according to the ischemic bowel/GI bleeding protocol after the uneventful administration of 100 mL Opti-Ray 350 intravenous contrast. COMPARISON: Same day CT chest abdomen pelvis FINDINGS: Small bilateral, right greater than left, pleural effusions with bibasilar atelectasis. Heart size is normal. Aortic valve replacement. No pericardial effusion. Unchanged cystic lesion in the left hemiliver, likely a cyst. No suspicious hepatic lesion. Vicarious excretion of contrast in the gallbladder. Cholelithiasis. Spleen, pancreas, and adrenal glands are normal. Bilateral renal cysts. Kidneys enhance symmetrically without hydronephrosis. Contrast in the bilateral collecting systems. Urinary bladder is decompressed by Leo catheter. Moderate rectal stool burden. Colonic diverticulosis. High attenuation material about the colon and portions of the small bowel which limits evaluation for an active GI bleed. Gastric tube terminates in the gastric body. No free air. Small volume free fluid which measures higher than simple fluid attenuation. Abdominal aorta is normal in caliber with mild atherosclerotic calculations. Right common femoral artery and external iliac artery stent are patent. Diffuse soft tissue edema. Large right retroperitoneal hematoma which measures up to 13.6 x 20.6 x 22.5 cm with a redemonstrated layering contrast blush which overall is similar in size compared to prior. Degenerative changes in the spine. No suspicious osseous lesion. IMPRESSION: Large right retroperitoneal hematoma with small volume hemoperitoneum which overall is similar compared to prior, with a redemonstrated contrast blush within the hematoma which is present on the noncontrast phase which somewhat limits evaluation for ongoing active bleeding. Dictated by: Josué Grier MD The radiology attending physician has personally reviewed this study, and had reviewed and/or edited this written report and agrees with it. Electronically signed by: Jose Guadalupe Ivey M.D. us Jeremiah Dalal MD IMG CT PROCEDURES Final Resu lt * CO INSJ NON-TUNNELED CENTRAL VENOUS CATH AGE 6 YR/> (03/26/2025 8:15 PM CDT) Narrative Jeremiah Dalal MD - 03/26/2025 8:15 PM CDT Jeremiah Dalal MD 03/29/2025 2:48 PM Central Line Insertion Date/Time: 03/26/2025 8:15 PM Performed by: Gonzalez Noriega MD Authorized by: Gonzalez Noriega MD [place] Protocol: RN Notified of Procedure: yes Informed consent: Unable to obtain due to emergent status Patient's stated name/ matches armband: Patient unable to verbalize - armband matched to name and within medical record Allergies confirmed: yes Consent form signed, dated, timed; matches correct patient, intended procedure and site: No consent form due to emergent status Imaging: Pertinent imaging reviewed, correctly oriented and match to patient identifiers Lab/Diag test results: Pertinent lab/diag tests reviewed and match to patient identifiers Supplies, devices and special equipment are available: yes Site/side marked: yes Immediately prior to the procedure a time out was called: a verbal verification by the procedure participants confirmed correct patient identity, correct site/side marked and visible (if applicable); agreement on procedure to be done; and correct patient positioning Have non- routine considerations been assessed?: NA Indications: Vascular access, administer vasoactive medications and central pressure monitoring Anesthesia (see MAR for exact dosage) Anesthesia method: Local infiltration Local anesthetic: Lidocaine 1% Patient position: Flat Skin preparation: Skin prepped with 2% chlorhexidine Provider preparation: Cap, full body drape, gloves, gown, handwashing and mask Location: Left internal jugular Technique: Landmarks identified Ultrasound guidance: Pre-procedure diagnostic and real-time needle guidance Assessment: Blood return through all ports, free fluid flow and placement verified by x-ray Catheter type: Triple lumen Catheter placed through introducer: Single Catheter size: 7 Fr Needle inserted, vein idenitified then guidewire inserted easily into vein: Yes Number of attempts: 1 Successful placement: Yes Catheter secured at (cm): 20 Catheter length (cm): 20 Line securement: Line sutured and dressing applied Patient tolerance: Patient tolerated the procedure well with no immediate complications Post Procedure Debrief: All guidewires, needles, sponges or other items are accounted for: yes Any special post procedure monitoring, testing or other considerations: yes (enter/request order) All specimens identified, labeled and matched to patient identification: n/a Responsible democrat for transporting specimen(s) to lab determined: n/a us Gonzalez Noriega MD IN CLINIC/BEDSIDE IDALIA [facility]ANNA Final Result * (ABNORMAL) Urinalysis reflex to microscopic and culture Urine, indwelling catheter (03/26/2025 7:53PM CDT) Color, ur Yellow Yellow Clarity, ur Clear Clear [facility] Specific gravity, ur >1.042(H) 1.003 - 1.030 [facility] pH, urine 6.5 [facility] Comment: Interpretive Data U rine pH is affected by diet, medications, systemic acid-base disturbances, and renal tubular function. pH may affect urinary stone formation. For example, urine pH below 6.0 may help reduce the tendency for calcium phosphate stones and pH greater than 6.0 may reduce the tendency for uric acid stone formation. Source: [facility] [employer] Current Interpretive Data was last revised on 2017 Protein, ur ql 1+(A) Negative [facility] Glucose, ur ql 1+(A) Negative [facility] Ketones, ur Negative Negative [facility] Bilirubin, ur Negative Negative [facility] Blood, ur 2+(A) Negative [facility] Urobilinogen, ur <2.0 <2.0 mg/dL [facility] Nitrite, ur Negative Negative [facility] Leukocyte esterase, ur Negative Negative [facility] UA reflex comment Reflex to microscopic UA will be performed. [facility] Urine, indwelling catheter 03/26/2025 7:53 PM CDT 03/26/2025 8:00 PM CDT us Jeremiah Dalal MD LAB MICROBIOLOGY - GENERAL O RDERABLES Final Result [facility] Department [place] [address] * (ABNORMAL) Urinalysis, microscopic only (03/26/2025 7:53 PM CDT) WBC, ur 11-20(A) 0 - 5 /HPF RBC, ur 6-10(A) 0 - 2 /HPF [facility] Epithelial cells, squamous, ur 6-10(A) 0 - 5 /HPF [facility] Comment:Suggestive of contam ination. Consider recollection by clean catch. Bacteria, ur Trace(A) [facility] Culture Reflex Comment Reflex to urine culture will be performed. [facility] Urine, indwelling catheter 03/26/2025 7:53 PM CDT 03/26/2025 8:00 PM CDT us Jeremiah Dalal MD LAB URINE ORDERABLES Final R esult Performing Organization Address [facility] Co de Phone Number [facility] Department [place] [address] * Urine culture Urine, indwelling catheter (03/26/2025 7:53 PM CDT) Report Final Report: Less than 100,000 colonies/mL (clinically insignificant growth based on current clinical standards) Organism (CLINICALLY INSIGNIFICANT GROWTH [facility] Urine, indwelling catheter 03/26/2025 7:53 PM CDT 03/26/2025 8:27 PM CDT Narrative [facility] - 03/29/2025 6:32 AM CDT Urine culture reflexed based upon urinalysis results. Testing performed by [facility] ([phone]) us Jeremiah Dalal MD LAB MICROBIOLOGY - GENERAL O RDERABLES Final Result Performing Organization Address City/[facility]/ZIP Co de Phone Number [facility] Department [place] [address] * Type and screen (03/26/2025 7:43 PM CDT) Salazar, indirect Negative ABO Rh A Positive [facility] Blood 03/26/2025 7:43 PM CDT 03/26/2025 8:04 PM CDT Narrative [facility] - 03/26/2025 8:55 PM CDT Has the patient had Daratumumab or Isatuximab in the past 6 months?->Unknown Jeremiah Dalal MD LAB BLOOD BANK TEST ORDERABL ES Final Result Performing Organization Address [facility] de Phone Number [facility] Department [place] [address] * (ABNORMAL) Blood gas, arterial (03/26/2025 7:43 PM CDT) Pathologist [facility] pH, Art 7.43 7.35 - 7.45 PCO2, Arterial 36 35 - 45 mmHg [facility] PO2, Arterial 266(H) 83 - 108 mmHg [facility] HCO3 Art (Calculated) 25 20 - 30 mmol/L [facility] BE, art 0 mmol/L [facility] Comment: Interpretive Data No Reference Range Established Current Interpretive Data was last revised on 2017 O2 Sat Art (Measured) 100(H) 90 - 95 % [facility] Blood 03/26/2025 7:43 PM CDT 03/26/2025 7:51 PM CDT Jeremiah Dalal MD LAB BLOOD ORDERABLES Final R esult Performing Organization Address [facility] Co de Phone Number [facility] Department [place] [address] * (ABNORMAL) Troponin I high-sensitivity series (baseline, 2hr, 4hr, 6hr) (03/26/2025 7:41 PM CDT) Pathologist [facility] Trop I hs 2,857(C) <=17 ng/L Comment: Interpretive Data For further hscTnI resources including the diagnostic algorithm and an aid in interpretation, copy and paste this link: [email or web address]/[email or web address] Current Interpretive Data last revised 2020. Blood 03/26/2025 7:41 PM CDT 03/26/2025 7:56 PM CDT us Jeremiah Dalal MD LAB BLOOD ORDERABLES Final R esult Performing Organization Address [facility]/ZIP Co de Phone Number [facility] [place] [address] * (ABNORMAL) Lactate (03/26/2025 7:41 PM CDT) Lactate 4.1(C) 0.7 - 2.0 mmol/L Blood 03/26/2025 7:41 PM CDT 03/26/2025 7:56 PM CDT us Jeremiah Dalal MD LAB BLOOD ORDERABLES Final R esult Performing Organization Address [facility] Co de Phone Number [facility] [employer] [place] [address] * Critical result callback Cardio chemistry (03/26/2025 7:41 PM CDT) Date Notified [id number] Time Notified 20:36 [facility] Test name Trop I hs base [facility] Called/Read Back Francine VIZCAINO [facility] Credentials ABIOLA VIZCAINO [facility] Called By [facility] Blood 03/26/2025 7:41 PM CDT 03/26/2025 7:56 PM CDT us Jeremiah Dalal MD LAB BLOOD ORDERABLES Final R esult Performing Organization Address City/[facility] [place] [place] [address] * (ABNORMAL) eGFR (03/26/2025 7:41 PM CDT) eGFR 28(L) >=60 mL/min/1. 73 m2 Comment: Interpretive Data Reference Interval Normal >/= 90 mL/min/1.73m2 Mildly decreased* 60 - 89 mL/min/1.73m2 Mildly to moderately decreased 45 - 59 mL/min/1.73m2 Moderately to severely decreased 30 - 44 mL/min/1.73m2 Severely decreased 15 - 29 mL/min/1.73m2 Kidney Failure < 15 mL/min/1.73m2 *Relative to young adult level Estimated glomerular filtration rate is determined by the 2020 CKD-EPI equation recommended by the National Kidney Foundation (A Unifying Approach to GFR Estimation: Recommendations of the NKF-ASK Task Force on Reassessing the Inclusion of Race in Diagnosing Kidney Disease, JASN 2020). The CKD-EPI equation should not be used for patients with unstable renal function and has not been validated in children and those over 70. Current interpretive data was last reviewed 2021. Blood 03/26/2025 7:41 PM CDT 03/26/2025 8:16 PM CDT us Jeremiah Dalal MD LAB BLOOD ORDERABLES Final R esult [facility] Department [place] [address] * (ABNORMAL) Differential, auto (03/26/2025 7:41 PM CDT) Pathologist [facility] Neutrophil abs 13.36(H) 1.50 - 6.50 K/cumm Imm gran abs 0.19(H) 0.00 - 0.10 K/cumm [facility] Lymphocyte abs 1.03 0.80 - 3.30 K/cumm [facility] Monocyte abs 1.45(H) 0.20 - 0.80 K/cumm [facility] Eosinophil abs 0.00 0.00 - 0.50 K/cumm [facility] Basophil abs 0.04 0.00 - 0.10 K/cumm [facility] Neutrophil pct 83.2 % [facility] Comment: Interpretive Data Percent cell count reference ranges are not reported, since discordance with absolute values may lead to misinterpretation of CBC data. Current Interpretive Data was last revised on 2018. Imm gran pct 1.2 % [facility] Comment: Interpretive Data Percent cell count reference ranges are not reported, since discordance with absolute values may lead to misinterpretation of CBC data. Current Interpretive Data was last revised on 2018. Lymphocyte pct 6.4 % [facility] Comment: Interpretive Data Percent cell count reference ranges are not reported, since discordance with absolute values may lead to misinterpretation of CBC data. Current Interpretive Data was last revised on 2018. Monocyte pct 9.0 % [facility] Comment: Interpretive Data Percent cell count reference ranges are not reported, since discordance with absolute values may lead to misinterpretation of CBC data. Current Interpretive Data was last revised on 2018. Eosinophil pct 0.0 % [facility] Comment: Interpretive Data Percent cell count reference ranges are not reported, since discordance with absolute values may lead to misinterpretation of CBC data. Current Interpretive Data was last revised on 2018. Basophil pct 0.2 % [facility] Comment: Interpretive Data Percent cell count reference ranges are not reported, since discordance with absolute values may lead to misinterpretation of CBC data. Current Interpretive Data was last revised on 2018. Blood 03/26/2025 7:41 PM CDT 03/26/2025 7:56 PM CDT Jeremiah Dalal MD LAB BLOOD ORDERABLES Final R esult [facility] Department [place] [address] * Critical Result Callback Chemistry (03/26/2025 7:41 PM CDT) Date Notified [id number] Time Notified 20:29 [facility] TestName Lactate [facility] Called/Read Back Marcella REYES Credentials RN [facility] Called By [facility] Blood 03/26/2025 7:41 PM CDT 03/26/2025 7:56 PM CDT us Jeremiah Dalal MD LAB BLOOD ORDERABLES Final R esult [facility] Department [place] [address] * (ABNORMAL) Pro B-type natriuretic peptide (03/26/2025 7:41 PM CDT) NT-proBNP 1,979(H) <=300 pg/mL Comment: Interpretive Comments: A. Dyspnea in Acute Care Setting All Ages: < 300 pg/ml, acute heart failure unlikely. < 50 yrs: 300 - 450 pg/ml, further investigation warranted. > 450 pg/ml, acute heart failure likely. 50 - 74 yrs: 300 - 900 pg/ml, further investigation warranted. > 900 pg/ml, acute heart failure likely . > or = 75 yrs: 450 - 1800 pg/ml, further investigation warranted. > 1800 pg/ml, acute heart failure likely. B. Non-acute Setting < 75 yrs < 125 pg/ml, rules out heart failure. > or = 125 pg/ml, further investigation warranted. > or = 75 yrs < 450 pg/ml, rules out heart failure. > or = 450 pg/ml, further investigation warranted. - Knowledge of each individual patient's NT-proBNP range may be more useful than using similar cut-points for every patient. Please note that marked elevations in NT-proBNP levels may be observed in state other than Left Ventricular Congestive Failure, including: acute coronary syndromes, right heart strain/failure (including pulmonary embolism and cor pulmonale), critical illness, renal failure, as well as advanced age. - References: 1. Christopher DUEÑAS et.al. Eur Heart J. 2006:27:330-337. 2. Brady RW, Tom AM. J. AM Harjinder Cardiol: Cardiovasc Imag. 2009;2: 216- 225. Interpretive Data Last Revised Date: 2018. Blood 03/26/2025 7:41 PM CDT 03/26/2025 7:57 PM CDT us Jeremiah Dalal MD LAB BLOOD ORDERABLES Final R esult Performing Organization Address [facility] Co de Phone Number [facility] [place] [address] * (ABNORMAL) CBC with auto differential (03/26/2025 7:41 PM CDT) [facility] WBC 16.07(H) 3.80 - 9.90 K/cumm Hgb 12.8 11.9 - 15.5 g/dL [facility] Hct 35.9 35.6 - 45.5 % [facility] Plt 89(L) 150 - 400 K/cumm [facility] MPV 10.3 9.1 - 12.3 fL [facility] RBC 4.27 3.90 - 5.20 M/cumm [facility] MCV 84.1 81.3 - 96.4 fL [facility] MCH 30.0 27.1 - 33.3 pg [facility] MCHC 35.7 32.3 - 35.7 g/dL [facility] RDW CV 14.6 11.1 - 14.9 % [facility] RDW SD 44.0 35.7 - 48.1 fL [facility] NRBC abs 0.00 0.00 - 0.01 K/cumm [facility] Blood 03/26/2025 7:41 PM CDT 03/26/2025 7:56 PM CDT Jeremiah Dalal MD LAB BLOOD ORDERABLES Final R esult Performing Organization Address City/[facility]/ZIP Co de Phone Number [facility] Department [place] [address] * aPTT (03/26/2025 7:41 PM CDT) [facility] aPTT 28 28 - 38 sec Comment: Interpretive Data Heparin therapeutic range: 66.0 - 100.0 seconds. Range based on correlation with therapeutic heparin activity range of 0.3 - 0.7 Units/mL. Current interpretive data was last revised on 2023. Blood 03/26/2025 7:41 PM CDT 03/26/2025 7:51 PM CDT Jeremiah Dalal MD LAB BLOOD ORDERABLES Final R esult Performing Organization Address City/[facility]/ZIP Co de Phone Number [facility] [place] [address] * (ABNORMAL) Protime-INR (03/26/2025 7:41 PM CDT) PT 13.8(H) 9.7 - 13.0 sec INR 1.27(H) 0.90 - 1.20 [facility] Comment: Interpretive data Oral anticoagulant therapeutic ranges: Venous thromboembolism prophylaxis or treatment: 2.0-3.0 CARDIOLOGY Standard range: 2.0-3.0 High-intensity range: 2.5-3.5 Refer to indication-specific guidelines for appropriate target ranges for prosthetic heart valve replacement. Current interpretive data was last revised on 2019. Blood 03/26/2025 7:41 PM CDT 03/26/2025 7:51 PM CDT Jeremiah Dalal MD LAB BLOOD ORDERABLES Final R esult Performing Organization Address [facility] Co de Phone Number [facility] [place] [address] * Phosphorus (03/26/2025 7:41 PM CDT) Phosphorus, pl 3.9 2.3 - 4.5 mg/dL Blood 03/26/2025 7:41 PM CDT 03/26/2025 7:57 PM CDT Jeremiah Dalal MD LAB BLOOD ORDERABLES Final R esult Performing Organization Address City/[facility] Co de Phone Number [facility] [place] [address] * Magnesium (03/26/2025 7:41 PM CDT) Pathologist [facility] Magnesium 1.8 1.4 - 2.5 mg/dL Blood 03/26/2025 7:41 PM CDT 03/26/2025 7:57 PM CDT Jeremiah Dalal MD LAB BLOOD ORDERABLES Final R esult [facility] Department [place] [address] * (ABNORMAL) Comprehensive metabolic panel (03/26/2025 7:41 PM CDT) Pathologist [facility] Sodium 140 135 - 145 mmol/L Potassium, pl 4.5 3.3 - 4.9 mmol/L [facility] Chloride 104 97 - 110 mmol/L [facility] CO2 24 22 - 32 mmol/L [facility] Anion gap 12 2 - 15 mmol/L [facility] BUN 26(H) 6 - 25 mg/dL [facility] Creatinine 1.88(H) 0.60 - 1.10 mg/dL [facility] Glucose 148 70 - 199 mg/dL [facility] Comment: Interpretive Data Fasting glucose >/= 126 mg/dl is diagnostic for diabetes. Fasting is defined as no caloric intake for at least 8 hours. Fasting glucose between 100 mg/dl to 125 mg/dl is diagnostic of prediabetes. In a patient with classic symptoms of hyperglycemia or hyperglycemic crisis, a random glucose >/= 200 mg/dl is diagnostic for diabetes. In the absence of unequivocal hyperglycemia, results should be confirmed by repeat testing. The classification and Diagnosis of Diabetes Diabetes Care 2021; 46: S19-S40. Current interpretive data was last revised 2022. Calcium 9.4 8.5 - 10.3 mg/dL [facility] Bilirubin, total 0.7 0.1 - 1.2 mg/dL [facility] Protein, pl 5.6(L) 6.5 - 8.5 g/dL [facility] Albumin 3.0(L) 3.5 - 5.0 g/dL [facility] Alk phos 81 40 - 130 Units/L [facility] ALT 71(H) 7 - 45 Units/L [facility] AST 94(H) 10 - 45 Units/L [facility] Blood 03/26/2025 7:4 1 PM CDT 03/26/2025 7:57 PM CDT Jeremiah Dalal MD LAB BLOOD ORDERABLES Final R esult [facility] Department [place] [address] * (ABNORMAL) POC Blood Gas and Chemistries, Arterial - (03/26/2025 7:40 PM CDT) pH, Art POC 7.50(H) 7.35 - 7.45 pCO2, Art POC 36 35 - 45 mmHg [facility] pO2, Art POC 277(H) 83 - 108 mmHg [facility] Na, POC 137 135 - 145 mmol/L [facility] K POC 4.6 3.3 - 4.9 mmol/L [facility] Comment: Interpretive Data Not all point of care methods assess for hemolysis. Confirm with instrument and retest K+ if not consistent with clinical signs and symptoms. Current Interpretive Data was last revised on 2024. Cl, POC 106 97 - 110 mmol/L [facility] Ionized Ca, POC 5.44(H) 4.50 - 5.10 mg/dL [facility] Glucose, POC 160 70 - 199 mg/dL [facility] Lactate POC 3.9(H) 0.7 - 2.0 mmol/L [facility] SO2 (luis alfredo) arterial 100(H) 90 - 95 % [facility] Base excess, POC 4.9 mmol/L [facility] HCO3, Art POC 28 20 - 30 mmol/L [facility] Hct, POC 41.0 36.3 - 45.3 % [facility] Total Hb, POC 13.6 11.9 - 15.5 g/dL [facility] Blood 03/26/2025 7:40 PM CDT 03/26/2025 7:40 PM CDT Jeremiah Dalal MD LAB POCT ORDERABLES - DEVICE Final Result Performing Organization Address [facility] [place] [place] [address] * POCT glucose (03/26/2025 7:37 PM CDT) Glucose, POC 158 70 - 199 mg/dL Blood 03/26/2025 7:37 PM CDT 03/26/2025 7:37 PM CDT Jeremiah Dalal MD LAB POCT ORDERABLES - DEVICE Final Result Performing Organization Address [facility] [place] [address] * Transfuse plasma Standard plasma (03/26/2025 6:25 PM CDT) Blood Gautam Rashid MD BLOOD TRANSFUSION ORDERABLE S Final Result Performing Organization Address [facility] Co de Phone Number CHARIS [address] [address] [facility] [place] [address] * Transfuse RBC (03/26/2025 5:54 PM CDT) Blood Gautam Rashid MD BLOOD TRANSFUSION ORDERABLE S Final Result Performing Organization Address [facility] Co de Phone Number CHARIS [address] [address] [employer] [place] [address] * POCT glucose (03/26/2025 5:51 PM CDT) Glucose, POC 189 70 - 199 mg/dL POC Performer [id number] CHARIS Blood 03/26/2025 5:51 PM CDT 03/26/2025 5:51 PM CDT Gautam Rashid MD LAB POCT ORDERABLES - DEVIC E Final Result Performing Organization Address [facility] Co de Phone Number CHARIS STONE [address] [address] [facility] [employer] [place] [address] * Prepare plasma: 1 Units Standard plasma (03/26/2025 5:08 PM CDT) [facility] Product code [id number] Unit Number [id number] [facility] Product Blood Type APOS [facility] Dispense Status PRESUMED TRANSFUSED [facility] Blood Venous blood specimen / Unknown 03/26/2025 5:08 PM CDT Narrative [facility] - 03/26/2025 10:16 PM CDT Is this plasma order intended for a COVID-19 patient as convalescent plasma?->Standard plasma Special Requirements Needed?->No Date required:-[id number] FFP # of Units:-1-Units Reasons:-Active major bleeding with coagulopathy} Gautam Rashid MD BLOOD BANK PRODUCT ORDERABL ES Final Result Performing Organization Address [facility] Co de Phone Number CHARIS STONE [phone] [address] [facility] [employer] [place] [address] * Transfuse RBC (03/26/2025 4:43 PM CDT) Blood us Henri Norris MD BLOOD TRANSFUSION ORDE RABLES Final Result Performing Organization Address City/[facility]/ZIP Co de Phone Number CHARIS STONE [address] [address] [facility] [employer] [place] [address] * Transfuse RBC (03/26/2025 4:43 PM CDT) Blood Henri Norris MD BLOOD TRANSFUSION ORDE RABLES Final Result Performing Organization Address City/[facility] Co de Phone Number CHARIS STONE [address] [address] [employer] [place] [address] * Transfuse RBC (03/26/2025 4:43 PM CDT) Blood Henri Norris MD BLOOD TRANSFUSION ORDE RABMORIS Final Result Performing Organization Address [facility] Co de Phone Number [facility] [address] [address] [facility] [place] [address] * Transfuse RBC (03/26/2025 4:43 PM CDT) Blood Henri Norris MD BLOOD [facility]SF[facility]ION [facility]DE [facility] Final Result Performing Organization Address [facility] de Phone Number CHARIS [address] [address] [facility] [place] [address] * Prepare RBC: 1 Units (03/26/2025 4:25 PM CDT) Pathologist [facility] Product code [id number] Unit Number [id number] [facility] Product Blood Type APOS [facility] Dispense Status RETURNED [facility] Blood 03/26/2025 4:25 PM CDT Narrative [facility] - 03/27/2025 10:15 PM CDT Are special requirements needed? (All products are leukoreduced and CMV- safe)- >No Date required:-[id number] LRRBC # of Qvrjc-[id number] Reasons:-Hemorrhagic shock/Life-threatening bleeding} Gautam Rashid MD BLOOD BANK PRODUCT ORDERABL ES Final Result Performing Organization Address [facility] Co de Phone Number [facility] [address] [address] [facility] [place] [address] * Potassium, whole blood (03/26/2025 4:24 PM CDT) Potassium, bld 4.1 3.3 - 4.9 mmol/L Comment: Interpretive Data This method is not able to assess for hemolysis, which may falsely increase potassium concentrations. If further testing is needed to evaluate this result, consider in-laboratory plasma potassium. Current Interpretive Data was last revised on 2022. Blood 03/26/2025 4:24 PM CDT 03/26/2025 4:31 PM CDT Gautam Rashid MD LAB BLOOD ORDERABLES Final Result Performing Organization Address [facility] Co de Phone Number VERNONDRE STONE [address] [address] [facility] [place] [address] * POCT glucose (03/26/2025 4:24 PM CDT) Glucose, POC 188 70 - 199 mg/dL POC Performer [id number] CHARIS Blood 03/26/2025 4:24 PM CDT 03/26/2025 4:24 PM CDT Gautam Rashid MD LAB POCT ORDERABLES - DEVIC E Final Result Performing Organization Address [facility] Phone Number VERNONDRE STONE [address] [address] [facility] [employer] [place] [address] * (ABNORMAL) Protime-INR (03/26/2025 4:24 PM CDT) PT 15.5(H) 9.7 - 13.0 sec INR 1.42(H) 0.90 - 1.20 CHARIS Comment: Interpretive data Oral anticoagulant therapeutic ranges: Venous thromboembolism prophylaxis or treatment: 2.0-3.0 CARDIOLOGY Standard range: 2.0-3.0 High-intensity range: 2.5-3.5 Refer to indication-specific guidelines for appropriate target ranges for prosthetic heart valve replacement. Current interpretive data was last revised on 2019. Blood 03/26/2025 4:24 PM CDT 03/26/2025 4:31 PM CDT Gautam Rashid MD LAB BLOOD ORDERABLES Final Result Performing Organization Address [facility] Co de Phone Number [place] [address] [place] [address] * Fibrinogen (03/26/2025 4:24 PM CDT) Fibrinogen 285 170 - 400 mg/dL Blood 03/26/2025 4:24 PM CDT 03/26/2025 4:31 PM CDT Gautam Rashid MD LAB BLOOD ORDERABLES Final Result Performing Organization Address [facility] Co de Phone Number CHARIS [address] [address] [facility] [place] [address] * POCT glucose (03/26/2025 3:35 PM CDT) Pathologist [facility] Glucose, POC 195 70 - 199 mg/dL POC Performer [id number] [facility] Blood 03/26/2025 3:35 PM CDT 03/26/2025 3:35 PM CDT Gautam Rashid MD LAB POCT ORDERABLES - DEVIC E Final Result Performing Organization Address [facility] Co de Phone Number CHARIS [address] [address] [facility] [place] [address] * Transfuse plasma Standard plasma (03/26/2025 3:15 PM CDT) Blood Gautam Rashid MD BLOOD TRANSFUSION ORDERABLE S Final Result Performing Organization Address [facility] Co de Phone Number CHARIS [address] [address] [facility] [place] [address] * (ABNORMAL) POCT glucose (03/26/2025 2:33 PM CDT) Pathologist [facility] Glucose, POC 229(H) 70 - 199 mg/dL POC Performer [id number] [facility] Blood 03/26/2025 2:33 PM CDT 03/26/2025 2:33 PM CDT Gautam Rashid MD LAB POCT ORDERABLES - DEVIC E Final Result Performing Organization Address City/[facility]/ZIP Co de Phone Number CHARIS STONE [address] [address] [facility] [place] [address] * Blood gas, venous (03/26/2025 2:18 PM CDT) pH, Venous 7.34 7.32 - 7.43 PCO2, Venous 46 40 - 50 mmHg [facility] PO2, Venous 35 mmHg [facility] Comment: Interpretive Data No Reference Range Established Current Interpretive Data was last revised on 2018. HCO3 Venous, Calculated 22 20 - 30 mmol/L [facility] BE, venous -1 mmol/L [facility] Comment: Interpretive Data No Reference Range Established Current Interpretive Data was last revised on 2018. Blood 03/26/2025 2:18 PM CDT 03/26/2025 2:25 PM CDT Narrative [facility] - 03/26/2025 2:29 PM CDT From [facility]. Gautam Rashid MD LAB BLOOD ORDERABLES Final Result Performing Organization Address City/[facility] Co de Phone Number CHARIS STONE [address] [address] [facility] [place] [address] * (ABNORMAL) Blood gas, arterial (03/26/2025 2:18 PM CDT) pH, Art 7.40 7.35 - 7.45 PCO2, Arterial 35 35 - 45 mmHg [facility] PO2, Arterial 107 83 - 108 mmHg [facility] HCO3 Art (Calculated) 22 20 - 30 mmol/L [facility] BE, art -3 mmol/L [facility] Comment: Interpretive Data No Reference Range Established Current Interpretive Data was last revised on 2017 O2 Sat Art (Measured) 98(H) 90 - 95 % [facility] Blood 03/26/2025 2:18 PM CDT 03/26/2025 2:25 PM CDT Rosa Galvan MD LAB BLOOD ORDERABLES F inal Result Performing Organization Address [facility]/ZIP Co de Phone Number CHARIS STONE [address] [address] [place] [address] * XR Abdomen Ap 1 Vw (03/26/2025 1:57 PM CDT) Anatomical Region Laterality Modality Body, Abdomen N/A Computed Radiogr aphy 03/26/2025 2:01 PM CDT Impressions 03/26/2025 2:01 PM CDT Good tube positioning Electronically signed by: Mario Saldana M.D. Narrative 03/26/2025 2:01 PM CDT EXAMINATION: XR ABDOMEN AP 1 VIEW HISTORY: Tube placement FINDINGS: Feeding tube well-positioned with its tip in the pyloric canal region. Bowel gas pattern nonobstructive Procedure Note Mario Saldana MD - 03/26/2025 EXAMINATION: XR ABDOMEN AP 1 VIEW HISTORY: Tube placement FINDINGS: Feeding tube well-positioned with its tip in the pyloric canal region. Bowel gas pattern nonobstructive IMPRESSION: Good tube positioning Electronically signed by: Mario Saldana M.D. Gautam Rashid MD IMG XR PROCEDURES Final Res ult * (ABNORMAL) POCT glucose (03/26/2025 1:33 PM CDT) [facility] Signature Glucose, POC 223(H) 70 - 199 mg/dL POC Performer [id number] [facility] Blood 03/26/2025 1:33 PM CDT 03/26/2025 1:33 PM CDT Gautam Rashid MD LAB POCT ORDERABLES - DEVIC E Final Result CHARIS STONE [address] [address] [place] [address] * CTA Chest Abdominal Aorta and Bilateral Iliofemoral (03/26/2025 12:27 PM CDT) Anatomical Region Laterality Modality Body N/A Computed Tomogra phy 03/26/2025 4:36 PM CDT Impressions 03/26/2025 4:36 PM CDT Active hemorrhage occurring in the posterior aspect of the large right iliac fossa hematoma. The opacification of a small right ilial lumbar branch arising from the right internal iliac artery seems to be extending into the area of Densities which represents acute active bleeding. The adjacent external iliac artery contains a long stent. This final report was called to the ICU physician at 4:15 PM], earlier preliminary report was called by Dr. Monroy Electronically signed by: Eric Steen M.D. Narrative 03/26/2025 4:36 PM CDT EXAMINATION: CTA CHEST ABDOMINAL AORTA AND BILATERAL ILIOFEMORAL Date: 03/26/2025 11:45 AM History: concern for bleeding, exernal iliac stents, sp TAVR Technique: Transaxial computed tomographic images of the abdomen, pelvis, and lower extremities were obtained after the administration of 118 mL intravenous contrast using an AIF protocol. Multiplanar coronal and sagittal images were reformatted. 3D volumetric analysis with MIP images were created on a dedicated workstation. ABDOMINAL CTA FINDINGS: There is no evidence of abdominal aortic aneurysm or dissection. The celiac axis and proximal superior mesenteric artery demonstrates scattered atherosclerotic calcified plaque along with single renal arteries bilaterally. There were no hemodynamically significant stenoses demonstrated. Prominent scattered atherosclerotic calcifications and plaque are identified within the abdominal aorta without significant stenosis. RIGHT LOWER EXTREMITY: The right common iliac, external iliac, common femoral, deep femoral, and femoral arteries are patent but demonstrate mild diffuse atherosclerotic calcified with similar changes in the popliteal and infrapopliteal vessels.. There is a calcified plaque interferes with assessment of the degree of stenoses of the infrapopliteal vessels. There is attenuated two-vessel ankle runoff. Dorsalis pedis and medial plantar branches visualized. LEFT LOWER EXTREMITY: The left common iliac, external iliac, common femoral, deep femoral, and femoral arteries are patent demonstrating mild scattered atherosclerotic calcified plaque with similar changes occurring in the popliteal and infrapopliteal vessels. The infrapopliteal vessel calcified plaque complicates determining the degree of stenosis There is attenuated two-vessel ankle runoff. There is a calcified plaque interferes with assessment of the degree of stenoses of these infrapopliteal vessels. There is attenuated two-vessel ankle runoff. Dorsalis pedis and medial plantar branches visualized . Bilateral total knee replacements obliterate visibility of the vascular outlines in each popliteal fossa. NONVASCULAR FINDINGS: Small right pleural effusion and basilar atelectasis. Slightly nodular pleural thickening in the left base. There is mild generalized low volume hemorrhagic ascites. The liver, gallbladder, spleen, pancreas, adrenal glands, and kidneys appear unremarkable except for bilateral scattered numerous small cysts. In the right perirenal fascia and posterior peritoneal cavity is edema and hyperdense fluid collection which is consistent with hemorrhagic ascites. A right-sided large heterogenous hematoma is progressively larger on lower sections throughout its descent through the right iliac fossa before tapering to a smaller diameter until it starts becoming progressively larger again as it continues into the right inguinal area and groin. On axial images [id number] several foci of active hemorrhage are demonstrated within the posterior aspect of this large iliac fossa hematoma.. On the coronal images series 7 images 17 2 small branch of the posterior internal iliac vessel on the right . There is a long stent in the right external iliac artery. There is no evidence of bowel obstruction or free intraperitoneal air. The urinary bladder is decompressed by Leo catheter but there is a moderate amount of perivesical hemorrhage that has extended from the right groin. There is sigmoid diverticulosis. There is Rectal fecal impaction.. There is no sign of ascites. Procedure Note Eric Steen MD - 03/26/2025 EXAMINATION: CTA CHEST ABDOMINAL AORTA AND BILATERAL ILIOFEMORAL Date: 03/26/2025 11:45 AM History: concern for bleeding, exernal iliac stents, sp TAVR Technique: Transaxial computed tomographic images of the abdomen, pelvis, and lower extremities were obtained after the administration of 118 mL intravenous contrast using an AIF protocol. Multiplanar coronal and sagittal images were reformatted. 3D volumetric analysis with MIP images were created on a dedicated workstation. ABDOMINAL CTA FINDINGS: There is no evidence of abdominal aortic aneurysm or dissection. The celiac axis and proximal superior mesenteric artery demonstrates scattered atherosclerotic calcified plaque along with single renal arteries bilaterally. There were no hemodynamically significant stenoses demonstrated. Prominent scattered atherosclerotic calcifications and plaque are identified within the abdominal aorta without significant stenosis. RIGHT LOWER EXTREMITY: The right common iliac, external iliac, common femoral, deep femoral, and femoral arteries are patent but demonstrate mild diffuse atherosclerotic calcified with similar changes in the popliteal and infrapopliteal vessels.. There is a calcified plaque interferes with assessment of the degree of stenoses of the infrapopliteal vessels. There is attenuated two-vessel ankle runoff. Dorsalis pedis and medial plantar branches visualized. LEFT LOWER EXTREMITY: The left common iliac, external iliac, common femoral, deep femoral, and femoral arteries are patent demonstrating mild scattered atherosclerotic calcified plaque with similar changes occurring in the popliteal and infrapopliteal vessels. The infrapopliteal vessel calcified plaque complicates determining the degree of stenosis There is attenuated two-vessel ankle runoff. There is a calcified plaque interferes with assessment of the degree of stenoses of these infrapopliteal vessels. There is attenuated two-vessel ankle runoff. Dorsalis pedis and medial plantar branches visualized . Bilateral total knee replacements obliterate visibility of the vascular outlines in each popliteal fossa. NONVASCULAR FINDINGS: Small right pleural effusion and basilar atelectasis. Slightly nodular pleural thickening in the left base. There is mild generalized low volume hemorrhagic ascites. The liver, gallbladder, spleen, pancreas, adrenal glands, and kidneys appear unremarkable except for bilateral scattered numerous small cysts. In the right perirenal fascia and posterior peritoneal cavity is edema and hyperdense fluid collection which is consistent with hemorrhagic ascites. A right-sided large heterogenous hematoma is progressively larger on lower sections throughout its descent through the right iliac fossa before tapering to a smaller diameter until it starts becoming progressively larger again as it continues into the right inguinal area and groin. On axial images [id number] several foci of active hemorrhage are demonstrated within the posterior aspect of this large iliac fossa hematoma.. On the coronal images series 7 images 17 2 small branch of the posterior internal iliac vessel on the right . There is a long stent in the right external iliac artery. There is no evidence of bowel obstruction or free intraperitoneal air. The urinary bladder is decompressed by Leo catheter but there is a moderate amount of perivesical hemorrhage that has extended from the right groin. There is sigmoid diverticulosis. There is Rectal fecal impaction.. There is no sign of ascites. IMPRESSION: Active hemorrhage occurring in the posterior aspect of the large right iliac fossa hematoma. The opacification of a small right ilial lumbar branch arising from the right internal iliac artery seems to be extending into the area of Densities which represents acute active bleeding. The adjacent external iliac artery contains a long stent. This final report was called to the ICU physician at 4:15 PM], earlier preliminary report was called by Dr. Monroy Electronically signed by: Eric Steen M.D. Gautam Rashid MD IMG CT PROCEDURES Final Res ult * (ABNORMAL) Lactate (03/26/2025 12:26 PM CDT) Pathologist [facility] Lactate 5.2(C) 0.7 - 2.0 mmol/L Comment:Alert value Lactate called to and read back by Ladonna Woo art 03/26/2025 12:47:02 CDT by Kathy Olson. Blood 03/26/2025 12:2 6 PM CDT 03/26/2025 12:29 PM CDT Gautam Rashid MD LAB BLOOD ORDERABLES Final Result Performing Organization Address [facility] Co de Phone Number CHARIS STONE [address] [address] [employer] [place], [place] [id number] * Potassium, whole blood (03/26/2025 12:26 PM CDT) [facility] Potassium, bld 4.1 3.3 - 4.9 mmol/L Comment: Interpretive Data This method is not able to assess for hemolysis, which may falsely increase potassium concentrations. If further testing is needed to evaluate this result, consider in-laboratory plasma potassium. Current Interpretive Data was last revised on 2022. Blood 03/26/2025 12:2 6 PM CDT 03/26/2025 12:29 PM CDT Gautam Rashid MD LAB BLOOD ORDERABLES Final Result Performing Organization Address City/[facility]/[place] Number [place] [address] [address] [employer] [place], [place] [id number] * (ABNORMAL) eGFR (03/26/2025 12:26 PM CDT) [facility] eGFR 35(L) >=60 mL/min/1. 73 m2 Comment: Interpretive Data Reference Interval Normal >/= 90 mL/min/1.73m2 Mildly decreased* 60 - 89 mL/min/1.73m2 Mildly to moderately decreased 45 - 59 mL/min/1.73m2 Moderately to severely decreased 30 - 44 mL/min/1.73m2 Severely decreased 15 - 29 mL/min/1.73m2 Kidney Failure < 15 mL/min/1.73m2 *Relative to young adult level Estimated glomerular filtration rate is determined by the 2020 CKD-EPI equation recommended by the National Kid[employer] (A Unifying Approach to GFR Estimation: Recommendations of the NKF-ASK Task Force on Reassessing the Inclusion of Race in Diagnosing Kidney Disease, JASN 2020). The CKD-EPI equation should not be used for patients with unstable renal function and has not been validated in children and those over 70. Current interpretive data was last reviewed 2021. Blood 03/26/2025 12:2 6 PM CDT 03/26/2025 12:30 PM CDT Rosa Galvan MD LAB BLOOD ORDERABLES F inal Result [facility] [address] [facility] [place] [address] * (ABNORMAL) CBC without differential (03/26/2025 12:26 PM CDT) WBC 14.11(H) 3.80 - 9.90 K/cumm Hgb 12.0 11.9 - 15.5 g/dL [facility] Hct 35.5(L) 35.6 - 45.5 % [facility] Plt 91(L) 150 - 400 K/cumm [facility] MPV 10.6 9.1 - 12.3 fL [facility] RBC 4.06 3.90 - 5.20 M/cumm [facility] MCV 87.4 81.3 - 96.4 fL [facility] MCH 29.6 27.1 - 33.3 pg [facility] MCHC 33.8 32.3 - 35.7 g/dL [facility] RDW CV 14.4 11.1 - 14.9 % [facility] RDW SD 45.6 35.7 - 48.1 fL [facility] NRBC abs 0.00 0.00 - 0.01 K/cumm [facility] Blood 03/26/2025 12:2 6 PM CDT 03/26/2025 12:29 PM CDT Henri Norris MD LAB BLOOD ORDERABLES F inal Result Performing Organization Address City/[facility]/ZIP Co de Phone Number [facility] [address] Department [place] [address] * (ABNORMAL) Basic metabolic panel (03/26/2025 12:26 PM CDT) Sodium 139 135 - 145 mmol/L Potassium, pl 4.4 3.3 - 4.9 mmol/L [facility] Chloride 105 97 - 110 mmol/L [facility] CO2 21(L) 22 - 32 mmol/L [facility] Anion gap 13 2 - 15 mmol/L [facility] BUN 25 6 - 25 mg/dL [facility] Creatinine 1.57(H) 0.60 - 1.10 mg/dL [facility] Glucose 288(H) 70 - 199 mg/dL [facility] Comment: Interpretive Data Fasting glucose >/= 126 mg/dl is diagnostic for diabetes. Fasting is defined as no caloric intake for at least 8 hours. Fasting glucose between 100 mg/dl to 125 mg/dl is diagnostic of prediabetes. In a patient with classic symptoms of hyperglycemia or hyperglycemic crisis, a random glucose >/= 200 mg/dl is diagnostic for diabetes. In the absence of unequivocal hyperglycemia, results should be confirmed by repeat testing. The classification and Diagnosis of Diabetes Diabetes Care 202; 46: S19-S40. Current interpretive data was last revised 2022. Calcium 9.1 8.5 - 10.3 mg/dL CERNER Blood 03/26/2025 12:2 6 PM CDT 03/26/2025 12:30 PM CDT Rosa Galvan MD LAB BLOOD ORDERABLES F inal Result Performing Organization Address City/[facility]/ZIP Co de Phone Number CHARIS STONE [address] Department of [employer] [place], [place] [id number] * (ABNORMAL) POCT glucose (03/26/2025 12:25 PM CDT) Pathologist [facility] Glucose, POC 290(H) 70 - 199 mg/dL POC Performer [id number] [facility] Blood 03/26/2025 12:2 5 PM CDT 03/26/2025 12:25 PM CDT Gautam Rashid MD LAB POCT ORDERABLES - DEVIC E Final Result Performing Organization Address [facility] de Phone Number CHARIS STONE [address] Department [employer] [place], [place] [id number] * Prepare plasma: 1 Units Standard plasma (03/26/2025 11:40 AM CDT) [facility] Product code [id number] Unit Number [id number] [facility] Product Blood Type APOS [facility] Dispense Status PRESUMED TRANSFUSED [facility] Blood Venous blood specimen / Unknown 03/26/2025 11:40 AM CDT Narrative [facility] - 03/26/2025 10:16 PM CDT Is this plasma order intended for a COVID-19 patient as convalescent plasma?->Standard plasma Special Requirements Needed?->No Date required:-[id number] FFP # of Units:-1-Units Reasons:-Active major bleeding with coagulopathy} Gautam Rashid MD BLOOD BANK PRODUCT ORDERABL ES Final Result Performing Organization Address [facility] Co de Phone Number CHARIS CHASE [address] Department [place] [address] * Transfuse RBC (03/26/2025 11:39 AM CDT) Blood Gautam Rashid MD BLOOD TRANSFUSION ORDERABLE S Final Result Performing Organization Address [facility] Co de Phone Number CHARIS CHASE [address] [address] [facility] [place] [address] * Prepare RBC: 1 Units (03/26/2025 10:52 AM CDT) Pathologist [facility] Product code [id number] Unit Number [id number] CHARIS Product Blood Type APOS CHARIS Dispense Status PRESUMED TRANSFUSED CHARIS Blood 03/26/2025 10:5 2 AM CDT Narrative CHARIS - 03/26/2025 10:16 PM CDT Are special requirements needed? (All products are leukoreduced and CMV- safe)- >No Date required:-[id number] LRRBC # of [id number] Reasons:-Hemorrhagic shock/Life-threatening bleeding} Gautam Rashid MD BLOOD BANK PRODUCT ORDERABL ES Final Result Performing Organization Address [facility] Co de Phone Number CHARIS STONE [address] [place] [address] * (ABNORMAL) POCT glucose (03/26/2025 10:49 AM CDT) Pathologist [facility] Glucose, POC 336(H) 70 - 199 mg/dL POC Performer [id number] [facility] Blood 03/26/2025 10:4 9 AM CDT 03/26/2025 10:49 AM CDT Gautam Rashid MD LAB POCT ORDERABLES - DEVIC E Final Result CHARIS STONE [address] [employer] [place] [address] * Transfuse platelets (03/26/2025 10:28 AM CDT) Blood Gautam Rashid MD BLOOD TRANSFUSION ORDERABLE S Final Result Performing Organization Address [facility] Co de Phone Number CHARIS STONE [address] [place] [address] * (ABNORMAL) POCT glucose (03/26/2025 9:49 AM CDT) Glucose, POC 348(H) 70 - 199 mg/dL POC Performer [id number] CHARIS STONE Blood 03/26/2025 9:49 AM CDT 03/26/2025 9:49 AM CDT Gautam Rashid MD LAB POCT ORDERABLES - DEVIC E Final Result Performing Organization Address [facility] Co de Phone Number CHARIS STONE [address] Department of [employer] [place], [place] [id number] * Prepare platelets: 1 Units (03/26/2025 9:05 AM CDT) [facility] Product code [id number] Unit Number [id number] [facility] Product Blood Type APOS [facility] Dispense Status PRESUMED TRANSFUSED [facility] Blood Venous blood specimen / Unknown 03/26/2025 9:05 AM CDT Narrative [facility] - 03/26/2025 10:16 PM CDT Are special requirements needed? (all products are leukoreduced)->No Date required:-[id number] PLT # of Units:-1-Units Reasons:-Major active bleeding} Gautam Rashid MD BLOOD BANK PRODUCT ORDERABL ES Final Result Performing Organization Address [facility] Co de Phone Number VERNONDRE STONE [address] Department [place] [employer] [place] [address] * Transfuse plasma Standard plasma (03/26/2025 8:45 AM CDT) Blood Jena Dahl MD BLOOD TRANSFUSION ORDERABLES Fin al Result Performing Organization Address [facility] Co de Phone Number CHARIS STONE [address] Department [employer] [place] [address] * (ABNORMAL) POCT glucose (03/26/2025 8:20 AM CDT) Glucose, POC 320(H) 70 - 199 mg/dL POC Performer [id number] CHARIS Blood 03/26/2025 8:20 AM CDT 03/26/2025 8:20 AM CDT Gautam Rashid MD LAB POCT ORDERABLES - DEVIC E Final Result Performing Organization Address [facility] Co de Phone Number CHARIS STONE [address] [employer] [place] [address] * ECG 12 lead (03/26/2025 8:16 AM CDT) 03/26/2025 8:16 AM CDT Narrative [facility] - 03/26/2025 12:41 PM CDT Vent Rate: 79 bpm RR Interval: 754 msec CO Interval: 212 msec QRS Duration: 89 msec QT Interval: 374 msec QTC Interval: 409 msec P-R-T Howe: 38 - -11 - 83 degrees IMPRESSION: SINUS RHYTHM WITH FIRST DEGREE AV BLOCK WITH OCCASIONAL VENTRICULAR PREMATURE COMPLEXES INFERIOR MYOCARDIAL INFARCTION , PROBABLY OLD [40+ ms Q WAVE AND/OR ST/T ABNORMALITY IN II/aVF] ABNORMAL ECG Electronically Signed By: Sarah Gore MD Henri Norris MD ECG ORDERABLES Final Result Performing Organization Address [facility] Co de Phone Number [facility] [employer] [facility] * Transfuse RBC (03/26/2025 8:06 AM CDT) Blood Jena Dahl MD BLOOD TRANSFUSION ORDERABLES Fin al Result Performing Organization Address [facility] Co de Phone Number CHARIS STONE [address] [address] [facility] [employer] [place] [address] * TRANSTHORACIC ECHO (TTE) COMPLETE W DOPPLER/CF W CONTRAST (03/26/2025 7:52 AM CDT) Pathologist [facility] Estimated EF 60 % CONS SCIMAGE Anatomical Region Laterality Modality Ultrasound 03/26/2025 6:52 AM CDT Narrative 03/26/2025 10:55 [place] [address] Echocardiogram Report Patient Name: GREGG CROCKER L : 1950 Study Date: 03/26/2025 6:52:39 AM Gender: F Tech: Location: [id number] Ref Provider: JENA DAHL Height(Cm): 175 BSA: 2.28 Weight(Kg): 107 Heart Rate: 44 BP: 48 / 35 Quality: Good Order Provider: JENA DAHL PROCEDURES: Echocardiographic Report: Transthoracic echocardiogram with complete 2D, M-Mode, color Doppler examination and contrast. INDICATIONS: S/P TAVR 26mm Rush Jonathan Ultra Resilia. MEASUREMENTS: 2D/MM Value Range Doppler Value Range Estimated EF 60 % YOVANY Vmax 2.32 cm2 LA Dimension 2D 4.00 cm [ 2.70 - 3.80 ] AV Mean PG 13 mmHg AoR Diam 2D 2.77 cm [ 2.70 - 3.70 ] AV Peak Chivo 2.72 m/s [ 1.00 - 1.70 ] AV VTI 34.27 cm LVOT Diam 2.31 cm LVOT Peak Chivo 1.51 m/s [ 0.70 - 1.10 ] LVOT VTI 26.24 cm SI LVOT 49.9 ml/m2 [ >= 35.0 ] MV Mean PG 2 mmHg MV PHT 88 msec [ 20 - 100 ] MVA PHT 2.50 cm2 PV Peak Chivo 0.82 m/s [ 0.40 - 0.80 ] TR Peak Chivo 2.18 m/s [ 1.00 - 2.80 ] TR Peak PG 19 mmHg 2D/MM Value Range Doppler Value Range - FINDINGS: Atrial Septum: Normal atrial septum. Left Ventricle: Optison contrast agent used to visually enhance endocardial wall motion and contractility. Impaired diastolic relaxation Grade I. Ejection Fraction is visually estimated to be 60 %. Left Atrium: The left atrium is normal in size. Right Ventricle: Normal right ventricular size. Normal right ventricular systolic function. Right Atrium: The right atrium is normal in size. Aortic Valve: Normal appearing aortic valve bioprosthesis. Mitral Valve: Mild mitral annular calcification. Mild mitral valve regurgitation. Pulmonic Valve: Normal structure of the pulmonic valve. Tricuspid Valve: Estimated peak RVSP is 29 mmHg. Mild tricuspid regurgitation. Pericardium: Normal pericardium with no significant pericardial effusion. Aorta: Normal aortic root. IVC: Normal size and normal respiratory collapse consistent with normal right atrial pressure (<5 mmHg). Pulmonary Artery: Normal pulmonary artery size. CONCLUSIONS: Optison contrast agent used to visually enhance endocardial wall motion and contractility. Impaired diastolic relaxation Grade I. Ejection Fraction is visually estimated to be 60 %. Mild mitral annular calcification. Mild mitral valve regurgitation. Normal appearing aortic valve bioprosthesis. Estimated peak RVSP is 29 mmHg. Mild tricuspid regurgitation. Electronically Signed By: Sarah Gore MD 03/26/2025 10:54:41 AM CDT Procedure Note Tiffani Gore MD - 03/26/2025 [place] [address] Echocardiogram Report Patient Name: GREGG CROCKER L : 1950 Study Date: 03/26/2025 6:52:39 AM Gender: F Tech: Location: [place] [address] Ref Provider: JENA DAHL Height(Cm): 175 BSA: 2.28 Weight(Kg): 107 Heart Rate: 44 BP: 48 / 35 Quality: Good Order Provider: JENA DAHL PROCEDURES: Echocardiographic Report: Transthoracic echocardiogram with complete 2D, M-Mode, color Dopplerexamination and contrast. INDICATIONS: S/P TAVR 26mm Rush Jonathan Ultra Resilia. MEASUREMENTS: 2D/MM Value Range Doppler ValueRange Estimated EF 60 % YOVANY Vmax 2.32cm2 LA Dimension 2D 4.00 cm [ 2.70 - 3.80 ] AV Mean PG 13mmHg AoR Diam 2D 2.77 cm [ 2.70 - 3.70 ] AV Peak Chivo 2.72 m/s[ 1.00 - 1.70 ] AV VTI 34.27 cm LVOT Diam 2.31 cm LVOT Peak Chivo 1.51 m/s [ 0.70 - 1.10 ] LVOT VTI 26.24 cm SI LVOT 49.9 ml/m2 [ >= 35.0 ] MV Mean PG 2 mmHg MV PHT 88 msec [ 20 - 100 ] MVA PHT 2.50 cm2 PV Peak Chivo 0.82 m/s [ 0.40 - 0.80 ] TR Peak Chivo 2.18 m/s [ 1.00 - 2.80 ] TR Peak PG 19 mmHg 2D/MM Value Range Doppler ValueRange - FINDINGS: Atrial Septum: Normal atrial septum. Left Ventricle: Optison contrast agent used to visually enhance endocardial wall motionand contractility. Impaired diastolic relaxation Grade I. Ejection Fraction isvisually estimated to be 60 %. Left Atrium: The left atrium is normal in size. Right Ventricle: Normal right ventricular size. Normal right ventricular systolicfunction. Right Atrium: The right atrium is normal in size. Aortic Valve: Normal appearing aortic valve bioprosthesis. Mitral Valve: Mild mitral annular calcification. Mild mitral valve regurgitation. Pulmonic Valve: Normal structure of the pulmonic valve. Tricuspid Valve: Estimated peak RVSP is 29 mmHg. Mild tricuspid regurgitation. Pericardium: Normal pericardium with no significant pericardial effusion. Aorta: Normal aortic root. IVC: Normal size and normal respiratory collapse consistent with normal rightatrial pressure (<5 mmHg). Pulmonary Artery: Normal pulmonary artery size. CONCLUSIONS: Optison contrast agent used to visually enhance endocardial wall motionand contractility. Impaired diastolic relaxation Grade I. Ejection Fraction isvisually estimated to be 60 %. Mild mitral annular calcification. Mild mitral valve regurgitation. Normal appearing aortic valve bioprosthesis. Estimated peak RVSP is 29 mmHg. Mild tricuspid regurgitation. Electronically Signed By: Sarah Gore MD 03/26/2025 10:54:41 AM CDT Jena Dahl MD CV ECHO PROCEDURES Final Result * (ABNORMAL) POC Blood Gas and Chemistries, Arterial - (03/26/2025 7:49 AM CDT) pH, Art POC 7.35 7.35 - 7.45 pCO2, Art POC 37 35 - 45 mmHg CERNER CH pO2, Art POC 171(H) 83 - 108 mmHg CERNER CH Na, POC 134(L) 135 - 145 mmol/L CERNER CH K POC 5.9(H) 3.3 - 4.9 mmol/L CERNER CH Comment: Interpretive Data This method is not able to assess for hemolysis, which may falsely increase potassium concentrations. If further testing is needed to evaluate this result, consider in-laboratory plasma potassium. Current Interpretive Data was last revised on 2022. Ionized Ca, POC 5.76(H) 4.50 - 5.10 mg/dL CERNER CH Glucose, POC 412(H) 70 - 199 mg/dL CERNER CH Lactate POC 7.3(C) 0.7 - 2.0 mmol/L CERNER CH O2Hb, Art POC 97.8(H) 90.0 - 95.0 % CERNER CH SO2 (luis alfredo) arterial 100(H) 90 - 95 % CERNER CH Total CO2, Art POC 22 21 - 30 mmol/L CERNER CH BE, art, POC -5 mmol/L CERNER CH HCO3, Art POC 21 20 - 30 mmol/L CERNER CH Hct, POC 40.0 35.6 - 45.5 % CERNER CH Total Hb, POC 13.3 11.9 - 15.5 g/dL CERNER CH Blood 03/26/2025 7:49 AM CDT 03/26/2025 7:49 AM CDT Result [facility] Jena Dahl MD LAB POCT ORDERABLES - DEVICE Fin al Result Performing Organization Address [facility] de Phone Number CHARIS [address] [address] [facility] [employer] [place] [address] * Prepare RBC: 1 Units (03/26/2025 7:13 AM CDT) Product code [id number] Unit Number [id number] CERNER Product Blood Type APOS [facility]ERNER CH Dispense Status PRESUMED TRANSFUSED CERNER CH Blood 03/26/2025 7:13 AM CDT Narrative [facility] - 03/26/2025 10:16 PM CDT Are special requirements needed? (All products are leukoreduced and CMV- safe)- >No Date required:-[id number] LRRBC # of [id number] Reasons:-Hemorrhagic shock/Life-threatening bleeding} Jena Dahl MD BLOOD BANK PRODUCT ORDERABLES Fi nal Result Performing Organization Address [facility] Phone Number [facility] [address] [address] [facility] [place] [address] * Prepare plasma: 1 Units Standard plasma (03/26/2025 7:12 AM CDT) Product code [id number] Unit Number [id number] CERNER Product Blood Type ANEG CERNER CH Dispense Status PRESUMED TRANSFUSED [facility]ERNER CH Blood Venous blood specimen / Unknown 03/26/2025 7:12 AM CDT Narrative [facility] - 03/26/2025 10:16 PM CDT Is this plasma order intended for a COVID-19 patient as convalescent plasma?->Standard plasma Special Requirements Needed?->No Date required:-[id number] FFP # of Units:-1-Units Reasons:-High risk of life threatening bleeding, INR Jena Dahl MD BLOOD BANK PRODUCT ORDERABLES Fi nal Result Performing Organization Address [facility] Co de Phone Number VERNONDRE [address] [place] [address] * Prepare plasma: 1 Units Standard plasma (03/26/2025 7:01 AM CDT) Product code [id number] Unit Number [id number] [facility] Product Blood Type APOS [facility] Dispense Status [facility] Blood Venous blood specimen / Unknown 03/26/2025 7:01 AM CDT Narrative VERNONNER - 03/26/2025 2:01 PM CDT Is this plasma order intended for a COVID-19 patient as convalescent plasma?->Standard plasma Special Requirements Needed?->No Date required:-[id number] FFP # of Units:-1-Units Reasons:-Active major bleeding with coagulopathy} Jena Dahl MD BLOOD BANK PRODUCT ORDERABLES Fi nal Result Performing Organization Address [facility] de Phone Number [facility] [address] [place] [address] * Prepare RBC: 1 Units (03/26/2025 7:01 AM CDT) Product code [id number] Unit Number [id number] [facility] Dispense Status PRESUMED TRANSFUSED [facility] Blood 03/26/2025 7:01 AM CDT Narrative [facility] - 03/26/2025 10:16 PM CDT Are special requirements needed? (All products are leukoreduced and CMV- safe)- >No Donor Source->[employer]ic Date required:-[id number] LRRBC # of [id number] Reasons:-Active bleeding, Hgb <8 g/dL} Jena Dahl MD BLOOD BANK PRODUCT ORDERABLES Fi nal Result Performing Organization Address [facility] Co de Phone Number [facility] [address] [place] [address] * XR Chest 1 View (03/26/2025 6:34 AM CDT) Anatomical Region Laterality Modality Body, Chest N/A Computed Radiogr aphy 03/26/2025 8:13 AM CDT Impressions 03/26/2025 8:13 AM CDT Findings as described above. Electronically signed by: Lashon Rodríguez M.D. [facility] 03/26/2025 8:13 AM CDT EXAMINATION: XR CHEST 1 VIEW HISTORY: The patient is a 74-year-old female who has had placement of an endotracheal tube. Comparison made with the previous study dated 03/25/2025. TECHNIQUE: AP portable view of the chest. FINDINGS: The distal tip of the endotracheal tube is approximately 2.7 cm above the level of [place]. Borderline cardiomegaly with aortic atherosclerosis. No failure. No active infiltrate. TAVR device in place. Procedure Note Lashon Rodríguez MD - 03/26/2025 EXAMINATION: XR CHEST 1 VIEW HISTORY: The patient is a 74-year-old female who has had placement of an endotracheal tube. Comparison made with the previous study dated 03/25/2025. TECHNIQUE: AP portable view of the chest. FINDINGS: The distal tip of the endotracheal tube is approximately 2.7 cm above the level of [place]. Borderline cardiomegaly with aortic atherosclerosis. No failure. No active infiltrate. TAVR device in place. IMPRESSION: Findings as described above. Electronically signed by: Lashon Rodríguez M.D. Travis Schilling APRN IM XR PROCEDURES Final Result * (ABNORMAL) eGFR (03/26/2025 6:00 AM CDT) eGFR 47(L) >=60 mL/min/1. 73 m2 Comment: Interpretive Data Reference Interval Normal >/= 90 mL/min/1.73m2 Mildly decreased* 60 - 89 mL/min/1.73m2 Mildly to moderately decreased 45 - 59 mL/min/1.73m2 Moderately to severely decreased 30 - 44 mL/min/1.73m2 Severely decreased 15 - 29 mL/min/1.73m2 Kidney Failure < 15 mL/min/1.73m2 *Relative to young adult level Estimated glomerular filtration rate is determined by the 2020 CKD-EPI equation recommended by the National Kidney [employer] (A Unifying Approach to GFR Estimation: Recommendations of the NKF-ASK Task Force on Reassessing the Inclusion of Race in Diagnosing Kidney Disease, JASN 202). The CKD-EPI equation should not be used for patients with unstable renal function and has not been validated in children and those over 70. Current interpretive data was last reviewed 2021. Blood 03/26/2025 6:00 AM CDT 03/26/2025 6:10 AM CDT us Henri Norris MD LAB BLOOD ORDERABLES F inal Result CHARIS [address] Department [place] [address] * (ABNORMAL) Differential, auto (03/26/2025 6:00 AM CDT) Neutrophil abs 17.71(H) 1.50 - 6.50 K/cumm Imm gran abs 0.49(H) 0.00 - 0.10 K/cumm [facility] Lymphocyte abs 2.13 0.80 - 3.30 K/cumm [facility] Monocyte abs 1.62(H) 0.20 - 0.80 K/cumm [facility] Eosinophil abs 0.05 0.00 - 0.50 K/cumm [facility] Basophil abs 0.07 0.00 - 0.10 K/cumm [facility] Neutrophil pct 80.3 % CHARIS Comment: Interpretive Data Percent cell count reference ranges are not reported, since discordance with absolute values may lead to misinterpretation of CBC data. Current Interpretive Data was last revised on 2018. Imm gran pct 2.2 % CHARIS Comment: Interpretive Data Percent cell count reference ranges are not reported, since discordance with absolute values may lead to misinterpretation of CBC data. Current Interpretive Data was last revised on 2018. Lymphocyte pct 9.7 % CHARIS Comment: Interpretive Data Percent cell count reference ranges are not reported, since discordance with absolute values may lead to misinterpretation of CBC data. Current Interpretive Data was last revised on 2018. Monocyte pct 7.3 % [facility] Comment: Interpretive Data Percent cell count reference ranges are not reported, since discordance with absolute values may lead to misinterpretation of CBC data. Current Interpretive Data was last revised on 2018. Eosinophil pct 0.2 % [facility] Comment: Interpretive Data Percent cell count reference ranges are not reported, since discordance with absolute values may lead to misinterpretation of CBC data. Current Interpretive Data was last revised on 2018. Basophil pct 0.3 % [facility] Comment: Interpretive Data Percent cell count reference ranges are not reported, since discordance with absolute values may lead to misinterpretation of CBC data. Current Interpretive Data was last revised on 2018. Blood 03/26/2025 6:00 AM CDT 03/26/2025 7:51 AM CDT us Jena Dahl MD LAB BLOOD ORDERABLES Final Resul t [facility] [address] Department [place] [address] * (ABNORMAL) CBC with auto differential (03/26/2025 6:00 AM CDT) WBC 22.07(H) 3.80 - 9.90 K/cumm Hgb 12.8 11.9 - 15.5 g/dL [facility] Hct 37.9 35.6 - 45.5 % [facility] Plt 90(L) 150 - 400 K/cumm [facility] MPV 10.5 9.1 - 12.3 fL [facility] RBC 4.23 3.90 - 5.20 M/cumm [facility] MCV 89.6 81.3 - 96.4 fL [facility] MCH 30.3 27.1 - 33.3 pg [facility] MCHC 33.8 32.3 - 35.7 g/dL [facility] RDW CV 14.6 11.1 - 14.9 % [facility] RDW SD 47.1 35.7 - 48.1 fL [facility] NRBC abs 0.00 0.00 - 0.01 K/cumm [facility] Blood 03/26/2025 6:00 AM CDT 03/26/2025 7:51 AM CDT Jena Dahl MD LAB BLOOD ORDERABLES Final Resul t Performing Organization Address [facility] Co de Phone Number CHARIS [address] [facility] [place] [address] * (ABNORMAL) Protime-INR (03/26/2025 6:00 AM CDT) PT 15.3(H) 9.7 - 13.0 sec INR 1.41(H) 0.90 - 1.20 [facility] Comment: Interpretive data Oral anticoagulant therapeutic ranges: Venous thromboembolism prophylaxis or treatment: 2.0-3.0 CARDIOLOGY Standard range: 2.0-3.0 High-intensity range: 2.5-3.5 Refer to indication-specific guidelines for appropriate target ranges for prosthetic heart valve replacement. Current interpretive data was last revised on 2019. Blood 03/26/2025 6:00 AM CDT 03/26/2025 6:10 AM CDT Result [facility] Henri Norris MD LAB BLOOD ORDERABLES F inal Result Performing Organization Address [facility] Co de Phone Number CHARIS [address] Department [place] [address] * (ABNORMAL) Blood gas, arterial (03/26/2025 6:00 AM CDT) pH, Art 7.34(L) 7.35 - 7.45 PCO2, Arterial 37 35 - 45 mmHg [facility] PO2, Arterial 154(H) 83 - 108 mmHg [facility] HCO3 Art (Calculated) 20 20 - 30 mmol/L [facility]ER CH BE, art -6 mmol/L [facility] Comment: Interpretive Data No Reference Range Established Current Interpretive Data was last revised on 2017 O2 Sat Art (Measured) 98(H) 90 - 95 % [facility] Blood 03/26/2025 6:00 AM CDT 03/26/2025 6:09 AM CDT Henri Norris MD LAB BLOOD ORDERABLES F inal Result [address] Department [place] [address] * (ABNORMAL) Basic metabolic panel (03/26/2025 6:00 AM CDT) Sodium 138 135 - 145 mmol/L Potassium, pl 6.2(C) 3.3 - 4.9 mmol/L [facility] Comment:Critical Result call ed to and read back by Trudy Byrd (RN), DATE: 2025-03-26 07:02:43 BY: Clive Phillips Chloride 103 97 - 110 mmol/L CERNER CO2 19(L) 22 - 32 mmol/L CERNER Anion gap 16(H) 2 - 15 mmol/L CERNER BUN 21 6 - 25 mg/dL CERNER Creatinine 1.22(H) 0.60 - 1.10 mg/dL CERNER Comment:Icteric sample, test results may be affected. Glucose 357(H) 70 - 199 mg/dL [facility] Comment: Interpretive Data Fasting glucose >/= 126 mg/dl is diagnostic for diabetes. Fasting is defined as no caloric intake for at least 8 hours. Fasting glucose between 100 mg/dl to 125 mg/dl is diagnostic of prediabetes. In a patient with classic symptoms of hyperglycemia or hyperglycemic crisis, a random glucose >/= 200 mg/dl is diagnostic for diabetes. In the absence of unequivocal hyperglycemia, results should be confirmed by repeat testing. The classification and Diagnosis of Diabetes Diabetes Care 2021; 46: S19-S40. Current interpretive data was last revised 2022. Calcium 10.8(H) 8.5 - 10.3 mg/dL C[facility] Blood 03/26/2025 6:00 AM CDT 03/26/2025 6:10 AM CDT Henri Norris MD LAB BLOOD [place] [address] [address] Department [place] [address] * Critical Care (03/26/2025 5:33 AM CDT) Narrative Henri Norris MD - 03/26/2025 5:33 AM CDT Henri Norris MD 03/26/2025 6:19 AM Critical Care Performed by: Travis Schilling APRN Authorized by: Travis Schilling APRN CRITICAL CARE: Team: ALEXIS Shift: PM Level of Billing: Critical Care My time spent with this patient was 120 minutes: Critical Provider Statement: I have seen and examined the patient on this day of service. I have reviewed and confirmed the history, physical exam, laboratory and radiologic data as documented in the signed ICU note. I have reviewed and discussed my treatment plan with the ICU team and other medical/internet marketing consultant staff, making frequent assessments and decisions regarding this patient's complex medical care. Critical Care time was exclusive of time spent performing separately billed procedures, treating other patients, and teaching. This time was in addition to and separate from critical care provided by other practitioners in my group on this day of service. Critical Care was necessary to treat or prevent imminent or life-threatening deterioration of the following conditions: Hemorrhagic shock Acid-base disturbance Acute blood loss anemia This time was spent by me doing the following: Initiation/active titration of vasoactive medications Active and frequent reassessment of respiratory status and oxygen requirements and Invasive ventilator management, reassessment, and titration Massive transfusion protocol (MTP) and Transfusion of blood products I spent time reviewing and interpreting data from bedside monitors, laboratory results, and imaging and I spent time discussing the management of this critically ill patient with consultants and the medical staff us Travis Schilling APRN IN CLINIC/BEDSIDE ORDERABLES Final Result * PERIPHERAL RUN OFF CATH, REVAS ENDOVASILIAC W STNT [id number], PERIPHERAL ANGIOPLASTY, VASCULAR ACCESS US GUIDANCE (03/26/2025 5:23 AM CDT) Anatomical Region Laterality Modality X-Ray Angiograph y Addenda Addendum by Jena Dahl MD on 03/26/2025 6:24 AM CDT EMERGENCY PERIPHERAL ANGIOGRAM AND INTERVENTION REPORT DATE OF PROCEDURE: 03/26/25 INDICATION FOR PROCEDURE: Retroperitoneal bleed BRIEF CLINICAL HISTORY: Gregg Crocker is a 74 y.o. female severe aortic stenosis, CAD s/p PCI/stenting, atrial fibrillation with history of radiofrequency ablation treatment, hypertension, diabetes mellitus, CKD, obesity. Patient underwent right transfemoral TAVR on 03/25/2025. She had 3 Perclose suture mediated devices placed due to residual bleed post TAVR, and also supplemental Angio-Seal and manual pressure. Good hemostasis was achieved after this in the field laborer, and completion pelvic angiogram post TAVR showed no angiographically visible dissection. Patient was transferred to the PACU. In the PACU, patient had oozing at the right groin access site. Manual pressure was applied with hemostasis. As a precaution, Femstop was applied and after discussions with the ICU physician, patient was transferred to the ICU for close observation. Patient was apparently doing well until approximately 2:00 a.m. tonight when she became hypotensive requiring pressor support and PRBCs. I got a phone call from ICU physician at 2:06 a.m. I activated the cardiac field laborer emergently for peripheral angiogram. At the time of arrival to the field laborer, patient was hypotensive with systolic blood pressure in 60s. Due to respiratory distress, patient was intubated in the field laborer during peripheral angiogram and intervention. PROCEDURES PERFORMED: Ultrasound-guided left common femoral arterial access Distal abdominal aortogram with bilateral iliac runoff Selective right iliac angiogram with distal runoff Selective left common femoral angiogram Emergent right external iliac artery stenting using 8.0 x 50 mm and 8.0 x 100 mm Milo VIABAHN covered stents in an overlapping fashion Deployment of Perclose suture mediated vascular closure device at left common femoral arterial access site Moderate Sedation (CPT 76566) and beyond MODERATE SEDATION: Midazolam 8 mg ; start time 0307 stop time 0523, total direct [id number] monitoring of conscious sedation 136 minutes (CPT 51148) TRAINED OBSERVER: Tania Bowman RN was trained observer for moderate sedation. ACCESS SITE: Left common femoral-contralateral retrograde PROCEDURE: Patient was emergently brought to the field laborer and prepped and draped in the usual sterile manner. Time-out and immediate reassessment of the patient was performed. After local anesthesia with lidocaine, left common femoral artery access was taken with micropuncture needle under ultrasound guidance followed by insertion of a 5 Montenegrin sheath over a 0.035 inch wire. A 5 Montenegrin IM catheter was advanced in the distal abdominal aorta, distal abdominal aortogram with bilateral iliac runoff was performed using DSA. The same catheter was pointed towards the right common iliac artery, selective right common iliac angiogram was performed. Due to unfavorable bifurcation of the aorta, the IM catheter could not be advanced in the right iliac artery, therefore, it was exchanged with a crossover catheter which was advanced over 035 glide advantage wire. Selective right iliac angiogram was performed. Estimated blood loss minimal. All specimens removed. The angiographic findings and details of intervention are given below. FINDINGS: PELVIC ANGIOGRAM: Patent iliac arteries but sluggish blood flow due to patient's hypotension. Perforation was noted in the right distal external iliac artery resulting in retroperitoneal bleed. RIGHT LOWER EXTREMITY: Patent common femoral artery, profunda femoris and SFA. Infrapopliteal vessels not imaged. LEFT LOWER EXTREMITY: Patent left common femoral artery. Distal vessels not imaged. INTERVENTION REPORT: Based on patient's clinical presentation and angiographic findings showing preparation in the right distal external iliac artery, we proceeded with the emergent intervention. The 5 Montenegrin sheath was upgraded to 7 Montenegrin 55 cm sheath over a 035 glide advantage wire. The tip of the sheath was positioned in the right proximal external iliac artery. Procedural anticoagulation was not given due to ongoing bleeding. 8.0 x 60 mm Anita scientific [place] balloon was advanced and inflated at nominal pressures at an proximal to the preparation area. Was inflated for about 5 minute. The balloon was taken out and angiogram showed no significant improvement in the extravasation of the contrast. Due to the emergent nature of the procedure, best available covered stents in the field laborer were utilized. 035 wire was exchanged with 018 V 18 guidewire. A 8.0 x 50 mm Milo VIABAHN covered stent was advanced to the target site in the distal right external iliac artery just proximal to the head of the right femur and was deployed. Postdilation was performed using a 8.0 x 60 mm balloon. The balloon was inflated for up to 4-5 minutes. The balloon was deflated and initially, angiogram showed good angiographic results with resolution of the extra vegetation, however, follow up angiogram couple of minutes later showed residual bleeding. In light of this, a 9.0 x 80 mm balloon was advanced and was inflated for up to 5 minutes at the target site. The balloon was taken out and angiogram showed residual bleed. In light of this, 8.0 x 100 mm Milo VIABAHN covered stent was advanced to the target site and was deployed in an overlapping fashion with the previously placed stent. Postdilation was performed using a 9.0 x 80 mm balloon which was inflated for up to 5 minutes. After this, angiogram showed significant improvement in the extravasation with trivial residual leak. Postdilation was again performed and final angiogram showed additional angiographic improvement. There was preserved flow distally in the SFA and profunda femoris. Patient became hemodynamically stable and there was less need for pressor support. The long 7 Montenegrin sheath was taken out and it was exchanged with a short 7 Montenegrin sheath. Hemostasis was achieved with successful deployment of Perclose suture mediated vascular closure device at left common femoral arterial access site. ICU physician was updated. Patient's daughter-Ame was updated. Patient transferred to ICU in relatively stable but guarded condition. CONCLUSIONS: Iatrogenic right external iliac artery perforation. Emergent peripheral vascular intervention- Balloon angioplasty, and stenting of right mid-distal external iliac artery using 8.0 x 50 mm and 8.0 x 100 mm Milo VIABAHN covered stents in an overlapping fashion with significant angiographic improvement. PLAN/RECOMMENDATIONS: Pressor support and PRBCs as needed. Close hemodynamic and clinical monitoring. Transfer to [facility] vascular surgery if any clinical deterioration. Plan discussed with ICU physician. Updated patient's daughter over the phone. Voice recognition software was used to complete this document, therefore, deputy attorney general variances may occur. Jena Dahl MD, [facility] 03/26/25 Jena Dahl MD CV CARDIAC CATH PROCEDURES Edite d Result - Final * (ABNORMAL) POC Blood Gas and Chemistries, Arterial - (03/26/2025 4:45 AM CDT) pH, Art POC 7.29(L) 7.35 - 7.45 pCO2, Art POC 40 35 - 45 mmHg [facility] pO2, Art POC 347(H) 83 - 108 mmHg [facility] Na, POC 133(L) 135 - 145 mmol/L [facility] K POC 5.7(H) 3.3 - 4.9 mmol/L [facility] Comment: Interpretive Data This method is not able to assess for hemolysis, which may falsely increase potassium concentrations. If further testing is needed to evaluate this result, consider in-laboratory plasma potassium. Current Interpretive Data was last revised on 2022. Ionized Ca, POC 6.49(H) 4.50 - 5.10 mg/dL [facility] Glucose, POC 382(H) 70 - 199 mg/dL [facility] Lactate POC 10.8(C) 0.7 - 2.0 mmol/L [facility] O2Hb, Art POC 98.1(H) 90.0 - 95.0 % [facility] SO2 (luis alfredo) arterial 100(H) 90 - 95 % [facility] Total CO2, Art POC 20(L) 21 - 30 mmol/L [facility] BE, art, POC -7 mmol/L [facility] HCO3, Art POC 20 20 - 30 mmol/L [facility] Hct, POC 38.0 35.6 - 45.5 % [facility] Total Hb, POC 12.8 11.9 - 15.5 g/dL [facility] Blood 03/26/2025 4:45 AM CDT 03/26/2025 4:45 AM CDT Jena Dahl MD LAB POCT ORDERABLES - DEVICE Fin al Result [address] Department [place] [address] * Prepare plasma (03/26/2025 4:24 AM CDT) [facility] Product code [id number] Unit Number [id number] [facility] Product Blood Type APOS [facility]ER CH Dispense Status PRESUMED TRANSFUSED [facility]ER [facility] Product code [id number] CERNER CH Unit Number [id number]- U [facility] Product Blood Type APOS C[facility]ER CH Dispense Status PRESUMED TRANSFUSED [facility] Blood 03/26/2025 4:24 AM CDT 03/26/2025 4:24 AM CDT Jena Dahl MD BLOOD BANK PRODUCT ORDERABLES Fi nal Result Performing Organization Address City/[facility]/ZIP Co de Phone Number [address]IS [address] Department [employer] [place], [place] [id number] * (ABNORMAL) POC Blood Gas and Chemistries, Arterial - (03/26/2025 4:14 AM CDT) pH, Art POC 7.02(C) 7.35 - 7.45 pCO2, Art POC 50(H) 35 - 45 mmHg [facility] pO2, Art POC 355(H) 83 - 108 mmHg [facility] Na, POC 132(L) 135 - 145 mmol/L [facility] K POC 5.8(H) 3.3 - 4.9 mmol/L [facility] Comment: Interpretive Data This method is not able to assess for hemolysis, which may falsely increase potassium concentrations. If further testing is needed to evaluate this result, consider in-laboratory plasma potassium. Current Interpretive Data was last revised on 2022. Ionized Ca, POC 8.33(C) 4.50 - 5.10 mg/dL [facility] Glucose, POC 464(C) 70 - 199 mg/dL [facility] Lactate POC 12.2(C) 0.7 - 2.0 mmol/L [facility] O2Hb, Art POC 98.0(H) 90.0 - 95.0 % [facility] SO2 (luis alfredo) arterial 100(H) 90 - 95 % [facility] Total CO2, Art POC 14(L) 21 - 30 mmol/L [facility] BE, art, POC -18 mmol/L [facility] HCO3, Art POC 11(L) 20 - 30 mmol/L [facility] Hct, POC 41.0 35.6 - 45.5 % [facility] Total Hb, POC 13.7 11.9 - 15.5 g/dL [facility] Blood 03/26/2025 4:14 AM CDT 03/26/2025 4:14 AM CDT us Jena Dahl MD LAB POCT ORDERABLES - DEVICE Fin al Result Performing Organization Address City/[facility]/ZIP Co de Phone Number [address] Department of [employer] [place] [address] * Prepare RBC (03/26/2025 3:27 AM CDT) Product code [id number] Unit Number [id number] [facility] Product Blood Type ONEG [facility]ER CH Dispense Status RETURNED [facility] Product code [id number] [facility]ER CH Unit Number [id number] [facility] CH Product Blood Type ONEG [facility] CH Dispense Status PRESUMED TRANSFUSED [facility] Blood 03/26/2025 3:27 AM CDT Gautam Rashid MD BLOOD BANK PRODUCT ORDERABL ES Final Result Performing Organization Address [facility] Co de Phone Number [address] [place] [address] * Prepare RBC (03/26/2025 3:25 AM CDT) Product code [id number] Unit Number [id number] [facility]ER [facility] Product Blood Type ONEG [facility] CH Dispense Status PRESUMED TRANSFUSED [facility] Product code [id number] C[facility]ER CH Unit Number [id number] [facility]ER CH Product Blood Type ONEG CERNER CH Dispense Status PRESUMED TRANSFUSED [facility] Blood 03/26/2025 3:25 AM CDT Gautam Rashid MD BLOOD BANK PRODUCT ORDERABL ES Final Result Performing Organization Address City/[facility] Co de Phone Number [address] [address] [place] [address] * CO INSJ NON-TUNNELED CENTRAL VENOUS CATH AGE 5 YR/> (03/26/2025 3:13 AM CDT) Narrative Travis Schilling APRN - 03/26/2025 3:13 AM CDT Travis Schilling APRN 03/26/2025 3:14 AM Central Line Insertion Date/Time: 03/26/2025 3:13 AM Performed by: Travis Schilling APRN Authorized by: Travis Schilling APRN [place] Protocol: RN Notified of Procedure: yes Informed consent: Unable to obtain due to emergent status Patient's stated name/ matches armband: Patient unable to verbalize - armband matched to name and within medical record Allergies confirmed: yes Consent form signed, dated, timed; matches correct patient, intended procedure and site: No consent form due to emergent status Imaging: N/a Lab/Diag test results: Pertinent lab/diag tests reviewed and match to patient identifiers Supplies, devices and special equipment are available: yes Site/side marked: n/a Immediately prior to the procedure a time out was called: a verbal verification by the procedure participants confirmed correct patient identity, correct site/side marked and visible (if applicable); agreement on procedure to be done; and correct patient positioning Have non- routine considerations been assessed?: Yes Indications: Vascular access and administer vasoactive medications Anesthesia (see MAR for exact dosage) Anesthesia method: Local infiltration Local anesthetic: Lidocaine 1% Patient position: Trendelenburg Skin preparation: Skin prepped with 2% chlorhexidine Provider preparation: Cap, full body drape, gloves, gown, handwashing and mask Location: Right internal jugular Ultrasound guidance: Pre-procedure diagnostic and real-time needle guidance Assessment: Blood return through all ports, free fluid flow and placement verified by x-ray Catheter type: Multilumen access catheter (MAC) Catheter placed through introducer: Triple Catheter size: 9 Fr Needle inserted, vein idenitified then guidewire inserted easily into vein: Yes Number of attempts: 2 Successful placement: Yes Catheter secured at (cm): 11.5 Catheter length (cm): 12 Line securement: Line sutured and dressing applied Patient tolerance: Patient tolerated the procedure well with no immediate complications Post Procedure Debrief: All guidewires, needles, sponges or other items are accounted for: yes Any special post procedure monitoring, testing or other considerations: yes (enter/request order) All specimens identified, labeled and matched to patient identification: n/a Responsible democrat for transporting specimen(s) to lab determined: n/a I personally performed this procedure which is separate from my critical care time. us Travis Schilling APRN IN CLINIC/BEDSIDE ORDERABLES Final Result * Prepare plasma (03/26/2025 3:10 AM CDT) Product code [id number] [facility]ER [facility] Unit Number [id number]- [id number] [facility] Product Blood Type ABPO [facility] CH Dispense Status PRESUMED TRANSFUSED [facility] Product code [id number] Unit Number [id number] [facility] CH Product Blood Type ABPO [facility]ER CH Dispense Status PRESUMED TRANSFUSED [facility] CH Blood 03/26/2025 3:10 AM CDT 03/26/2025 3:09 AM CDT us Jena Dahl MD BLOOD BANK PRODUCT ORDERABLES Fi nal Result [address] Department [place] [address] * INTUBATION (03/26/2025 3:00 AM CDT) Narrative Henri Norris MD - 03/26/2025 3:00 AM CDT Henri Norris MD 03/26/2025 5:52 AM Intubation Date/Time: 03/26/2025 3:00 AM Performed by: Henri Norris MD Authorized by: Henri Norris MD [place] Protocol: RN Notified of Procedure: yes Informed consent: Unable to obtain due to emergent status Patient's stated name/ matches armband: Yes Consent form signed, dated, timed; matches correct patient, intended procedure and site: No consent form due to emergent status Supplies, devices and special equipment are available: yes Immediately prior to the procedure a time out was called: a verbal verification by the procedure participants confirmed correct patient identity, correct site/side marked and visible (if applicable); agreement on procedure to be done; and correct patient positioning Indications: Airway protection, respiratory distress and procedural sedation Intubation method: Video-assisted Patient status: RSI Patient position: Flat Preoxygenation: bag mask. Mask Ease: easy Sedation: Etomidate Paralytic: Rocuronium Visualization used: Glidescope Laryngoscope size: Mac 4 Tube size (mm): 7.5 Tube type: Cuffed Number of attempts: 1 Was this a difficult intubation?: No Cricoid pressure: No Cords visualized: Yes Post-procedure assessment: ETCO2 monitor Breath sounds: Equal Cuff inflated: Yes ETT to lip (cm): 23 Tube secured with: ETT alvarez Patient was intubated while FFP was actively being infused through a MAC cordis, to prevent cardiopulmonary collapse after paralysis. us Henri Norris MD IN CLINIC/BEDSIDE IDALIA HANNA Final Result * CO ARTL CATHJ/CANNULJ MNTR/TRANSFUSION SPX PRQ (03/26/2025 3:00 AM CDT) Narrative Boom Velazquez NP - 03/26/2025 3:00 AM CDT Boom Velazquez NP 03/26/2025 3:17 AM Arterial Line Insertion Date/Time: 03/26/2025 3:00 AM Performed by: Boom Velazquez NP Authorized by: Boom Velazquez NP [place] Protocol: RN Notified of Procedure: yes Informed consent: Patient/automotive sales representative/guardian agrees and accepts Patient's stated name/ matches armband: Yes Allergies confirmed: yes Consent form signed, dated, timed; matches correct patient, intended procedure and site: No consent form due to emergent status (patient in active hemorragic shock) Imaging: N/a Lab/Diag test results: N/a Supplies, devices and special equipment are available: yes Site/side marked: yes Immediately prior to the procedure a time out was called: a verbal verification by the procedure participants confirmed correct patient identity, correct site/side marked and visible (if applicable); agreement on procedure to be done; and correct patient positioning Indications: hemodynamic monitoring Location: Left radial Anesthesia: None Patient skin preparation: chlorhexidine Ultrasound guidance: Pre-procedure diagnostic and real-time needle guidance Patient preparation: Cap, gloves, handwashing, mask, towels and sterile probe cover Hussein's test normal?: Yes Needle gauge: 3fr. Catheter length (cm): 5 Single percutaneous needle puncture: No Seldinger technique used: Yes Number of attempts: 2 Placement confirmed with arterial waveform: Yes Post-procedure: Line sutured and dressing applied Post-procedure CMS: Normal and unchanged Patient tolerance: Patient tolerated the procedure well with no immediate complications Complications: no complications noted during insertion I personally preformed the above procedure which is separate to my critical care time. Line placed for hemorrhagic shock. Post Procedure Debrief: All guidewires, needles, sponges or other items are accounted for: yes Any special post procedure monitoring, testing or other considerations: n/a All specimens identified, labeled and matched to patient identification: n/a Responsible democrat for transporting specimen(s) to lab determined: n/a Boom Velazquez NP IV THERAPY ORDERABLES F inal Result * Prepare RBC (03/26/2025 2:56 AM CDT) Product code [id number] [facility] Unit Number [id number]- [id number] [facility] Product Blood Type ONEG [facility] CH Dispense Status PRESUMED TRANSFUSED [facility] Product code [id number] Unit Number [id number] [facility] CH Product Blood Type ONEG [facility] CH Dispense Status PRESUMED TRANSFUSED [facility] CH Blood 03/26/2025 2:56 AM CDT Gautam Rashid MD BLOOD BANK PRODUCT ORDERABL ES Final Result Performing Organization Address [facility] de Phone Number [facility] [address] [place] [address] * Type and screen (03/26/2025 2:48 AM CDT) Pathologist [facility] ABO Rh A Positive Salazar, indirect Negative C[facility]ER CH Blood 03/26/2025 2:48 AM CDT 03/26/2025 3:03 AM CDT Narrative CERNER CH - 03/26/2025 3:43 AM CDT Has the patient had Daratumumab or Isatuximab in the past 6 months?->Unknown Henri Norris MD LAB BLOOD BANK TEST OR DERABLES Final Result Performing Organization Address City/[facility]/ZIP Co de Phone Number [facility] [address] Department [place] [address] * Prepare RBC (03/26/2025 2:43 AM CDT) Pathologist [facility] Product code [id number] Unit Number [id number] J CERDRE CH Product Blood Type ONEG CERNER CH Dispense Status PRESUMED TRANSFUSED [facility]ER CH Product code [id number] CERDRE CH Unit Number [id number] [facility]ER CH Product Blood Type ONEG C[facility]ER CH Dispense Status PRESUMED TRANSFUSED [facility] CH Blood 03/26/2025 2:43 AM CDT Gautam Rashid MD BLOOD BANK PRODUCT ORDERABL ES Final Result Performing Organization Address [facility] Co de Phone Number [facility] [facility] [address] [address] [place] [address] * (ABNORMAL) aPTT (03/26/2025 2:27 AM CDT) aPTT 27(L) 28 - 38 sec Comment: Interpretive Data Heparin therapeutic range: 66.0 - 100.0 seconds. Range based on correlation with therapeutic heparin activity range of 0.3 - 0.7 Units/mL. Current interpretive data was last revised on 2023. Blood 03/26/2025 2:27 AM CDT 03/26/2025 2:27 AM CDT Jena Dahl MD LAB BLOOD ORDERABLES Final Resul t Performing Organization Address [facility] de Phone Number [facility] [address] [place] [address] * (ABNORMAL) Protime-INR (03/26/2025 2:27 AM CDT) PT 13.4(H) 9.7 - 13.0 sec INR 1.24(H) 0.90 - 1.20 CERDRE Comment: Interpretive data Oral anticoagulant therapeutic ranges: Venous thromboembolism prophylaxis or treatment: 2.0-3.0 CARDIOLOGY Standard range: 2.0-3.0 High-intensity range: 2.5-3.5 Refer to indication-specific guidelines for appropriate target ranges for prosthetic heart valve replacement. Current interpretive data was last revised on 2019. Blood 03/26/2025 2:27 AM CDT 03/26/2025 2:27 AM CDT Jena Dahl MD LAB BLOOD ORDERABLES Final Resul t Performing Organization Address City/State/[facility] Co de Phone Number [facility] [address] [employer] [place], [place] [id number] * eGFR (03/26/2025 2:25 AM CDT) eGFR 65 >=60 mL/min/1. 73 m2 Comment: Interpretive Data Reference Interval Normal >/= 90 mL/min/1.73m2 Mildly decreased* 60 - 89 mL/min/1.73m2 Mildly to moderately decreased 45 - 59 mL/min/1.73m2 Moderately to severely decreased 30 - 44 mL/min/1.73m2 Severely decreased 15 - 29 mL/min/1.73m2 Kidney Failure < 15 mL/min/1.73m2 *Relative to young adult level Estimated glomerular filtration rate is determined by the 2020 CKD-EPI equation recommended by the National Kidney Foundation (A Unifying Approach to GFR Estimation: Recommendations of the NKF-ASK Task Force on Reassessing the Inclusion of Race in Diagnosing Kidney Disease, JASN 2021). The CKD-EPI equation should not be used for patients with unstable renal function and has not been validated in children and those over 70. Current interpretive data was last reviewed 2021. Blood 03/26/2025 2:25 AM CDT 03/26/2025 2:25 AM CDT us eJna Dahl MD LAB BLOOD ORDERABLES Final Resul t [facility] [address] [employer] [place], [place] [id number] * Pro B-type natriuretic peptide (03/26/2025 2:25 AM CDT) NT-proBNP 284 <=300 pg/mL Comment: Interpretive Comments: A. Dyspnea in Acute Care Setting All Ages: < 300 pg/ml, acute heart failure unlikely. < 50 yrs: 300 - 450 pg/ml, further investigation warranted. > 450 pg/ml, acute heart failure likely. 50 - 74 yrs: 300 - 900 pg/ml, further investigation warranted. > 900 pg/ml, acute heart failure likely . > or = 75 yrs: 450 - 1800 pg/ml, further investigation warranted. > 1800 pg/ml, acute heart failure likely. B. Non-acute Setting < 75 yrs < 125 pg/ml, rules out heart failure. > or = 125 pg/ml, further investigation warranted. > or = 75 yrs < 450 pg/ml, rules out heart failure. > or = 450 pg/ml, further investigation warranted. - Knowledge of each individual patient's NT-proBNP range may be more useful than using similar cut-points for every patient. Please note that marked elevations in NT-proBNP levels may be observed in state other than Left Ventricular Congestive Failure, including: acute coronary syndromes, right heart strain/failure (including pulmonary embolism and cor pulmonale), critical illness, renal failure, as well as advanced age. - References: 1. Christopher DUEÑAS et.al. Eur Heart J. 2006:27:330-337. 2. Brady RW, Tom CLANCY. J. AM Harjinder Cardiol: Cardiovasc Imag. 2009;2: 216- 225. Interpretive Data Last Revised Date: 2018. Blood 03/26/2025 2:25 AM CDT 03/26/2025 2:25 AM CDT Ousmane VIZCAINO CH - 03/26/2025 2:55 AM CDT 03/26/2025 02:23:37 CDT per night nurse Mandy gupta am labs on [facility] sent @ 0200 us Jena Dahl MD LAB BLOOD ORDERABLES Final Resul t [facility] [address] [facility] [place] [address] * Magnesium (03/26/2025 2:25 AM CDT) Magnesium 2.1 1.4 - 2.5 mg/dL Blood 03/26/2025 2:25 AM CDT 03/26/2025 2:25 AM CDT Narrative CERNER CH - 03/26/2025 2:55 AM CDT 03/26/2025 02:23:37 CDT per night nurse Mandy do am labs on [facility] sent @ 0200 us Jena Dahl MD LAB BLOOD ORDERABLES Final Resul t [facility] [address] Department [place] [address] * (ABNORMAL) Comprehensive metabolic panel (03/26/2025 2:25 AM CDT) Sodium 139 135 - 145 mmol/L Potassium, pl 4.2 3.3 - 4.9 mmol/L CERNER CH Chloride 109 97 - 110 mmol/L CERNER CH CO2 21(L) 22 - 32 mmol/L CERNER CH Anion gap 9 2 - 15 mmol/L CERNER CH BUN 17 6 - 25 mg/dL CERNER CH Creatinine 0.93 0.60 - 1.10 mg/dL CERNER CH Glucose 164 70 - 199 mg/dL CERNER CH Comment: Interpretive Data Fasting glucose >/= 126 mg/dl is diagnostic for diabetes. Fasting is defined as no caloric intake for at least 8 hours. Fasting glucose between 100 mg/dl to 125 mg/dl is diagnostic of prediabetes. In a patient with classic symptoms of hyperglycemia or hyperglycemic crisis, a random glucose >/= 200 mg/dl is diagnostic for diabetes. In the absence of unequivocal hyperglycemia, results should be confirmed by repeat testing. The classification and Diagnosis of Diabetes Diabetes Care 202; 46: S19-S40. Current interpretive data was last revised 2022. Calcium 8.5 8.5 - 10.3 mg/dL CERNER CH Bilirubin, total 0.5 0.1 - 1.2 mg/dL CERNER CH Protein, pl 5.3(L) 6.5 - 8.5 g/dL CERNER CH Albumin 3.1(L) 3.5 - 5.0 g/dL CERNER CH Alk phos 102 40 - 130 Units/L CERNER CH ALT 13 7 - 45 Units/L CERNER CH AST 20 10 - 45 Units/L CERNER CH Blood 03/26/2025 2:25 AM CDT 03/26/2025 2:25 AM CDT Narrative CERNER CH - 03/26/2025 2:55 AM CDT 03/26/2025 02:23:37 CDT per night nurse Mandy do am labs on [facility] sent @ 0200 us Jena Dahl MD LAB [place] [address] [address] Department [place] [address] * (ABNORMAL) POC Blood Gas and Chemistries, Venous - (03/26/2025 2:18 AM CDT) pH, Ceasar POC 7.46(H) 7.32 - 7.43 pCO2, ceasar POC 29(L) 40 - 50 mmHg CERNER CH pO2, ceasar POC 46 mmHg CERNER CH Na, POC 138 135 - 145 mmol/L CERNER CH K POC 4.9 3.3 - 4.9 mmol/L CERNER CH Comment: Interpretive Data This method is not able to assess for hemolysis, which may falsely increase potassium concentrations. If further testing is needed to evaluate this result, consider in-laboratory plasma potassium. Current Interpretive Data was last revised on 2022. Ionized Ca, POC 5.08 4.50 - 5.10 mg/dL CERNER CH Glucose, POC 189 70 - 199 mg/dL CERNER CH Lactate POC 2.6(H) 0.7 - 2.0 mmol/L CERNER CH O2Hb, Ceasar POC 81.0(L) 90.0 - 95.0 % CERNER CH O2 Sat, Ceasar POC (Luis Alfredo) 82 % CERNER CH Total CO2, ceasar POC 22 21 - 30 mmol/L CERNER CH Base excess, ceasar POC -2 mmol/L CERNER CH HCO3, Ceasar POC 23 20 - 30 mmol/L CERNER CH Hct, POC 30.0(L) 35.6 - 45.5 % CERNER CH Total Hb, POC 10.0(L) 11.9 - 15.5 g/dL CERNER CH Blood 03/26/2025 2:18 AM CDT 03/26/2025 2:18 AM CDT Jena Dahl MD LAB POCT ORDERABLES - DEVICE Fin al Result Performing Organization Address [facility] Co de Phone Number [facility] [address] Department [place] [employer] [place] [address] * Prepare RBC: 4 Units (03/26/2025 2:15 AM CDT) Pathologist [facility] Product code [id number] Unit Number [id number] 1-8 CERNER CH Product Blood Type APOS CERNER CH Dispense Status RETURNED CERNER CH Product code [id number] CERNER CH Unit Number [id number] 6-[id number] CERNER CH Product Blood Type APOS CERNER CH Dispense Status RETURNED CERNER CH Product code [id number] CERNER CH Unit Number [id number] 4-2 CERNER CH Product Blood Type APOS CERNER CH Dispense Status RETURNED CERNER CH Product code [id number] CERNER CH Unit Number [id number] 6-Y CERNER CH Product Blood Type APOS CERNER CH Dispense Status RETURNED CERNER CH Blood 03/26/2025 2:15 AM CDT Narrative CERNER CH - 03/27/2025 10:15 PM CDT Are special requirements needed? (All products are leukoreduced and CMV- safe)- >No Date required:-[id number] LRRBC # of [id number] Reasons:-Hemorrhagic shock/Life-threatening bleeding} us Henri Norris MD BLOOD BANK PRODUCT ORD ERABLES Final Result Performing Organization Address City/[facility]/ZIP Co de Phone Number [facility] [address] [place] [address] * Clinical pathology report (03/26/2025 2:12 AM CDT) Miscellaneous 03/26/2025 2:1 2 AM CDT 04/01/2025 10:58 AM CDT Narrative 04/02/2025 9:37 AM CDT EPIC results best viewed via link to PDF [facility] Department of Pathology [address] [place] [id number] Final Report Note to Patients: This report may contain a detailed description of human tissue sent by a health care provider to the laboratory for pathologic evaluation. The content of this report is essential for diagnosis and may provide important critical findings. This information may be unfamiliar to patients to review without a medical professional present. It is advised that the patient review this report in the presence of a health care provider who can answer questions and explain the details. Patient Name: GREGG CROCKER Address: [address] [place] [address] Gender: F : 1950 (Age: 74) Service: Cardiology Location: [facility] #: [id number] Patient Type: [facility] Taken: 03/26/2025 Received: 04/01/2025 Accessioned: 04/01/2025 Physician(s): Henri Norris MD Specimen(s) Received A: Blood Emergency Release of Blood and Blood ComponentsReported:04/02/2025 Interpretation: The listed units were transfused and subsequently found to be crossmatch compatible. All other clinically significant red cell allo-antibodies were ruled out. Israel Mak M.D.Report Electronically Reviewed and Signed Out By Israel Mak M.D. 04/02/2025 09:35:40 The performance characteristics of some immunohistochemical stains, fluorescence in-situ hybridization tests and immunophenotyping by flow cytometry cited in this report (if any) were determined by the Surgical Pathology Department at [facility] as part of an ongoing quality control director program and in compliance with federally mandated regulations drawn from the Clinical Laboratory Improvement Act of 1988 (CLIA '88). Some of these tests rely on the use of analyte specific reagents and are subject to specific labeling requirements by the US Food and Drug Administration. Such diagnostic tests may only be performed in a facility that is certified by the Department of Health and Human Services as a high complexity laboratory under CLIA '88. The FDA has determined that such clearance or approval is not necessary. This test is used for clinical purposes. It should not be regarded as investigational or for research. Nevertheless, federal rules concerning the medical use of analyte specific reagents require that the following disclaimer be attached to the report: This test was developed and its performance characteristics determined by the Surgical Pathology Department [facility]. It has not been cleared or approved by the U. S. Food and Drug Administration. REPORT IMAGES AND SCANNED DOCUMENTS, IF INCLUDED, ONLY VIEWABLE IN PDF VERSION OF REPORTe o Henri Norris MD LAB PATHOLOGY ORDERABL ES Final Result * Prepare RBC (03/26/2025 2:08 AM CDT) Product code [id number] Unit Number [id number] CERNER CH Product Blood Type ONEG CERNER CH Dispense Status PRESUMED TRANSFUSED CERNER CH Product code [id number] CERNER CH Unit Number [id number] CERNER CH Product Blood Type ONEG CERNER CH Dispense Status PRESUMED TRANSFUSED CERNER CH Blood 03/26/2025 2:08 AM CDT Gautam Rashid MD BLOOD BANK PRODUCT ORDERABL ES Final Result [facility] [address] [place] [address] * (ABNORMAL) Hemoglobin and hematocrit (03/26/2025 1:59 AM CDT) Hgb 10.9(L) 11.9 - 15.5 g/dL Hct 34.3(L) 35.6 - 45.5 % CERNER CH Blood 03/26/2025 1:59 AM CDT 03/26/2025 2:08 AM CDT Gautam Rashid MD LAB BLOOD ORDERABLES Final Result [facility] [address] [place] [address] * POCT glucose (03/26/2025 1:52 AM CDT) Glucose, POC 166 70 - 199 mg/dL POC Performer [id number] [facility] Blood 03/26/2025 1:52 AM CDT 03/26/2025 1:52 AM CDT us Jena Dahl MD LAB POCT ORDERABLES - DEVICE Fin al Result [facility] [address] [place] [address] * Critical Care (03/25/2025 9:09 PM CDT) Narrative Henri Norris MD - 03/25/2025 9:09 PM CDT Henri Norris MD 03/26/2025 5:49 AM Critical Care Performed by: Henri Norris MD Authorized by: Henri Norris MD CRITICAL CARE: Team: ALEXIS Shift: PM Level of Billing: Critical Care My time spent with this patient was 240 minutes: Critical Provider Statement: I have seen and examined the patient on this day of service. I have reviewed and confirmed the history, physical exam, laboratory and radiologic data as documented in the signed ICU note. I have reviewed and discussed my treatment plan with the ICU team and other medical/internet marketing consultant staff, making frequent assessments and decisions regarding this patient's complex medical care. Critical Care time was exclusive of time spent performing separately billed procedures, treating other patients, and teaching. This time was in addition to and separate from critical care provided by other practitioners in my group on this day of service. Critical Care was necessary to treat or prevent imminent or life-threatening deterioration of the following conditions: Hemorrhagic shock Aortic stenosis Possible obstructive sleep apnea Persistent R femoral artery bleeding Retroperitoneal Hemorrhage Acute respiratory failure following procedure/surgery and Threatened airway Lactic acidosis, Acid-base disturbance and Acute electrolyte derangement Acute blood loss anemia This time was spent by me doing the following: Serial bedside patient exams and Resuscitation with fluids Initiation/active titration of vasoactive medications Femoral stop device management S/P TAVR Active and frequent reassessment of respiratory status and oxygen requirements and Acute airway management Massive transfusion protocol (MTP) and Initiation/management of anti-platelet agents Preparation for emergent procedure/operating room I spent time reviewing and interpreting data from bedside monitors, laboratory results, and imaging, I spent time documenting in the medical record and I spent time discussing the management of this critically ill patient with consultants and the medical staff Result [facility] Henri Norris MD IN CLINIC/BEDSIDE IDALIA CYNDI Edited Result - Final * POCT glucose (03/25/2025 8:45 PM CDT) Glucose, POC 93 70 - 199 mg/dL POC Performer [id number] [facility] Blood 03/25/2025 8:45 PM CDT 03/25/2025 8:45 PM CDT Result [facility] Jena Dahl MD LAB POCT ORDERABLES - DEVICE Fin al Result Performing Organization Address City/[facility]/ZIP Co de Phone Number CHARIS [address] [address] [employer] [place], [place] [id number] * Hemoglobin and hematocrit (03/25/2025 8:25 PM CDT) Hgb 12.5 11.9 - 15.5 g/dL Hct 40.1 35.6 - 45.5 % [facility] Blood 03/25/2025 8:25 PM CDT 03/25/2025 8:34 PM CDT Result [facility] Gautam Rashid MD LAB BLOOD ORDERABLES Final Result [facility] [address] [place] [address] * POCT glucose (03/25/2025 5:02 PM CDT) Glucose, POC 106 70 - 199 mg/dL POC Performer [id number] [facility] Blood 03/25/2025 5:02 PM CDT 03/25/2025 5:02 PM CDT Result [facility] Jena Dahl MD LAB POCT ORDERABLES - DEVICE Fin al Result Performing Organization Address [facility]/ZIP Co de Phone Number CHARIS [address] [address] [facility] [place] [address] * Hemoglobin and hematocrit (03/25/2025 4:31 PM CDT) Hgb 11.9 11.9 - 15.5 g/dL Hct 38.3 35.6 - 45.5 % [facility] Blood 03/25/2025 4:31 PM CDT 03/25/2025 4:45 PM CDT Gautam Rashid MD LAB BLOOD ORDERABLES Final Result Performing Organization Address [facility] Co de Phone Number [facility] [address] [facility] [place] [address] * Critical Care (03/25/2025 3:40 PM CDT) Narrative Gautam Rashid MD - 03/25/2025 3:40 PM CDT Gautam Rashid MD 03/25/2025 5:02 PM Critical Care Performed by: Gautam Rashid MD Authorized by: Gautam Rashid MD CRITICAL CARE: Team: ALEXIS Shift: AM Level of Billing: Initial Hospital Visit Level 3 My time spent with this patient was 60 minutes: Critical Provider Statement: I have seen and examined the patient on this day of service. I have reviewed and confirmed the history, physical exam, laboratory, and radiographic data as documented in the ICU note. I have reviewed and discussed my treatment plan with the patient's team and other medical/internet marketing consultant staff. This time was in addition to and separate from care provided by other practitioners on this day of service. Gautam Rashid MD IN CLINIC/BEDSIDE ORDERABLE S Final Result * POCT glucose (03/25/2025 3:18 PM CDT) Glucose, POC 115 70 - 199 mg/dL POC Performer [id number] [facility] Blood 03/25/2025 3:18 PM CDT 03/25/2025 3:18 PM CDT Jena Dahl MD LAB POCT ORDERABLES - DEVICE Fin al Result [facility] [address] [facility] [place] [address] * X-ray chest 1 view (Portable) (03/25/2025 11:27 AM CDT) Anatomical Region Laterality Modality Body, Chest N/A Computed Radiogr aphy 03/25/2025 1:15 PM CDT Impressions 03/25/2025 1:15 PM CDT No failure. Electronically signed by: Lashon Rodríguez M.D. Narrative 03/25/2025 1:15 PM CDT EXAMINATION: XR CHEST 1 VIEW HISTORY: The patient is a 74-year-old female who has had a TAVR procedure. Comparison made with the previous study dated 03/19/2025. TECHNIQUE: AP portable view of the chest. FINDINGS: Borderline cardiomegaly with aortic atherosclerosis. No failure. No active infiltrate. There is a TAVR device in place. Procedure Note Lashon Rodríguez MD - 03/25/2025 EXAMINATION: XR CHEST 1 VIEW HISTORY: The patient is a 74-year-old female who has had a TAVR procedure. Comparison made with the previous study dated 03/19/2025. TECHNIQUE: AP portable view of the chest. FINDINGS: Borderline cardiomegaly with aortic atherosclerosis. No failure. No active infiltrate. There is a TAVR device in place. IMPRESSION: No failure. Electronically signed by: Lashon Rodríguez M.D. Jena Dahl MD IMG XR PROCEDURES Final Result * POCT glucose (03/25/2025 10:37 AM CDT) Glucose, POC 101 70 - 199 mg/dL POC Performer [id number] [facility] Blood 03/25/2025 10:3 7 AM CDT 03/25/2025 10:37 AM CDT us Jena Dahl MD LAB POCT ORDERABLES - DEVICE Fin al Result [facility] [address] [facility] [place] [address] * TRANSCATHETER AORTIC VALVE REPLACEMENT (TAVR) OPEN FEMORAL ART APPROACH (03/25/2025 10:10 AM CDT) Anatomical Region Laterality Modality X-Ray Angiograph y Narrative 03/25/2025 10:35 AM CDT TRANSCATHETER AORTIC VALVE REPLACEMENT (TAVR) REPORT DATE OF PROCEDURE: 03/25/25 INDICATION FOR PROCEDURE: Severe, symptomatic aortic stenosis BRIEF CLINICAL HISTORY: Gregg Crocker is a 74 y.o. female with severe aortic stenosis, CAD s/p PTCA/stenting of high-grade stenosis in the proximal segment of major diagonal branch using a 3.0 x 16 mm Anita scientific Synergy everolimus eluting sten (07/23/2024); s/p PTCA/stenting of ostial-proximal RCA using a 5.0 x 16 mm [employer] Synergy Megatron stent with proximal optimization; PTCA/stenting of RPL branch using a 3.0 x 12 mm [employer]ita scientific Synergy everolimus eluting stent (09/10/2024) , atrial fibrillation with history of radiofrequency ablation treatment, hypertension, diabetes mellitus, CKD, obesity. Patient has been monitored clinically and echocardiographically for progression of aortic stenosis. She has been experiencing worsening dyspnea on exertion and fatigue lately and recent echo from 02/06/2025 reportedly showed LVH, EF 70-75%, grade 1 diastolic dysfunction; severe aortic stenosis, V max 4.06 m/sec, mean gradient 40 mmHg, YOVANY 0.9 cm2. Workup for aortic valve replacement was initiated, and the patient underwent cardiac/peripheral angiogram on 02/21/2025 which showed patent into previously placed major diagonal branch stent, mild ISR ostial RCA and patent iliac arteries. Her case was discussed by multidisciplinary heart team, and she was deemed to be an appropriate candidate for TAVR. Benefits and risks of the procedure were discussed with the patient in depth, and informed consent was taken prior to the procedure. Risks of the procedure include but are not limited to vascular complications like groin hematoma, retroperitoneal bleed, vessel perforation; periprocedural [place], stroke; cardiac arrhythmias including conduction abnormality requiring pacemaker placement; contrast induced nephropathy, . After discussing all the benefits, risks and alternatives, patient was willing to proceed with the procedure. PROCEDURES PERFORMED: Successful transcatheter aortic valve replacement (TAVR) using 26 mm Rush Jonathan 3 Ultra Resilia pericardial tissue valve (transfemoral) Placement of temporary transvenous pacemaker Aortogram Distal abdominal aortogram with bilateral iliac runoff; selective right and left common femoral angiogram Deployment of ProGlide suture mediated closure devices will supplemental Angio-Seal at the right common femoral artery access site; deployment of Mynx vascular closure device at left common femoral artery access site SEDATION: Monitored anesthesia care (MAC) - by anesthesiology team CO-OPERATORS: Dr. Jorje MD CT surgeon ACCESS SITES: Right and left common femoral arteries; left common femoral vein PROCEDURE: After obtaining informed consent, patient was brought to the field laborer and prepped and draped in the usual sterile manner. Time-out and immediate reassessment of the patient was performed. Patient was placed under MAC by the anesthesiologist team. Right common femoral artery access was taken with micropuncture needle under ultrasound guidance followed by insertion of a 6 Montenegrin sheath over a 0.035 inch wire. Left common femoral artery access was taken with micropuncture needle under ultrasound guidance followed by insertion of a 6 Montenegrin sheath over a 0.035 inch wire. Left common femoral venous access was taken with micropuncture needle under ultrasound guidance followed by insertion of a long 5 sheath. A balloon tipped transvenous pacemaker was placed through the venous sheath under fluoroscopic guidance and was positioned in the right ventricle. Pacing thresholds were checked. The 5-Montenegrin pigtail catheter was then advanced into the aortic root through left common femoral arterial sheath. The pigtail catheter was placed in the non-coronary cusp for cusp isolation technique. An aortogram was performed in the coplanar view. Next, two ProGlide suture mediated vascular closure devices were placed in the right common femoral arterial access site. Next, the 6-Montenegrin arterial sheath on the right femoral artery was removed and after serial dilations, a 14 Montenegrin Rush sheath was inserted into the abdominal aorta under fluoroscopic guidance. A 5 Montenegrin AL1 catheter was advanced over a 035 wire into the aortic root. The aortic valve was then crossed using a 0.35 straight-tipped wire. The AL1 catheter was advanced in the LV cavity, and then it was exchanged with a pigtail catheter using a long 035 exchange length wire. LVEDP was measured at 15 mmHg. Pigtail catheter was taken out [place] Safari [place]. [place] [address] units of heparin for procedural anticoagulation. ACT was monitored throughout the procedure. Following this, the 26 mm Rush Jonathan 3 valve delivery system was advanced under fluoroscopic guidance and after carefully navigating the aortic arch, the valve delivery catheter was advanced across the aortic valve under fluoroscopic guidance. Fluoroscopy was performed to ensure appropriate placement along with aortography. The device was deployed while rapid right ventricular pacing. The balloon was deflated and the delivery catheter was retrieved into the aorta over the safari wire. Surface echocardiogram was performed, and there was no significant aortic insufficiency or paravalvular leak seen postdeployment. The mean gradient across aortic valve was measured at 5 mmHg, V max 1.4 m/sec. The delivery system was removed. Patient received 50 mg of protamine. The hemostasis was achieved by deployment of 3 ProGlide devices in the right femoral artery. The 3rd ProGlide device was deployed as there was not adequate hemostasis. Despite this, there was residual bleeding which required supplemental Angio-Seal and supplemental manual pressure with good hemostasis afterwards. Distal abdominal aortogram with bilateral iliac runoff was performed using the 5 Montenegrin pigtail catheter. The pelvic angiogram showed preserved flow in the iliac arteries without any angiographically visible dissection. A Mynx control vascular closure device was deployed at left common femoral access site. The temporary pacemaker wire was taken out in the field laborer. Estimated blood loss 100 cc. All specimens removed. Patient remained in sinus rhythm after the procedure. Patient tolerated procedure well without any immediate procedural complications. Patient was transferred to the telemetry bed in hemodynamically stable condition. Patient's family was updated about the procedure. CONCLUSIONS: Successful transfemoral TAVR using 26 mm Rush Jonathan 3 Ultra Resilia pericardial tissue valve. PLAN/RECOMMENDATIONS: Patient will be admitted to the telemetry unit and will be monitored for any postprocedure vascular, cardiac or neurological complications. Heart rhythm will be monitored closely. EKG and echocardiogram will be performed during the hospitalization prior to discharge. Patient has been previously on antiplatelet treatment with clopidogrel for CAD, and anticoagulation with warfarin for paroxysmal AFib. She was on warfarin due to inability to afford direct oral anticoagulant for atrial fibrillation. However, patient states that her insurance coverage has changed, and would like to switch warfarin to direct oral anticoagulant. The plan is to switch warfarin to apixaban, and clopidogrel to low-dose aspirin during this hospitalization. Voice recognition software was used to complete this document, therefore, deputy attorney general variances may occur. Jena Dahl MD, [facility] 03/25/25 Jena Dahl MD CV CARDIAC CATH PROCEDURES Final Result * (ABNORMAL) POC Activated Clotting Time, High Range (03/25/2025 8:59 AM CDT) ACT 304(H) 87 - 138 sec POC Performer [id number] CERNER CH Blood 03/25/2025 8:59 AM CDT 03/25/2025 8:59 AM CDT Jena Dahl MD LAB BLOOD ORDERABLES Final Resul t Performing Organization Address City/[facility]/ZIP Co de Phone Number CHARIS STONE [id number] [place] [employer] [place] [address] * POCT glucose (03/25/2025 8:53 AM CDT) [facility] Glucose, POC 98 70 - 199 mg/dL POC Performer [id number] CERNER CH Blood 03/25/2025 8:53 AM CDT 03/25/2025 8:53 AM CDT Jena Dahl MD LAB POCT ORDERABLES - DEVICE Fin al Result CHARIS CHASE [id number] [place] [address] * (ABNORMAL) POC Activated Clotting Time, High Range (03/25/2025 8:51 AM CDT) ACT 230(H) 87 - 138 sec POC Performer [id number] CERNER CH Blood 03/25/2025 8:51 AM CDT 03/25/2025 8:51 AM CDT Jena Dahl MD LAB BLOOD ORDERABLES Final Resul t Performing Organization Address [facility] Co de Phone Number CHARIS [address] [address] [place] [address] * Check Sample (03/25/2025 7:10 AM CDT) ABO Rh A Positive CH HCLL OTHER 03/25/2025 7:10 AM CDT 03/25/2025 7:26 AM CDT Jena Dahl MD LAB BLOOD ORDERABLES Final Resul t Performing Organization Address [facility] Co de Phone Number [facility] [address] [address] [place] [address] CH * Potassium, whole blood (03/25/2025 7:02 AM CDT) Potassium, bld 4.0 3.3 - 4.9 mmol/L Comment: Interpretive Data This method is not able to assess for hemolysis, which may falsely increase potassium concentrations. If further testing is needed to evaluate this result, consider in-laboratory plasma potassium. Current Interpretive Data was last revised on 2022. Blood 03/25/2025 7:02 AM CDT 03/25/2025 7:08 AM CDT Gabrielle Cummings NP LAB BLOOD ORDERABLES Final Res ult Performing Organization Address [facility] Co de Phone Number CHARIS STONE [phone] [place] [address] * Protime-INR (03/25/2025 7:02 AM CDT) PT 12.6 9.7 - 13.0 sec INR 1.16 0.90 - 1.20 CHARIS STONE Comment: Interpretive data Oral anticoagulant therapeutic ranges: Venous thromboembolism prophylaxis or treatment: 2.0-3.0 CARDIOLOGY Standard range: 2.0-3.0 High-intensity range: 2.5-3.5 Refer to indication-specific guidelines for appropriate target ranges for prosthetic heart valve replacement. Current interpretive data was last revised on 2019. Blood 03/25/2025 7:02 AM CDT 03/25/2025 7:09 AM CDT Gabrielle Cummings DATABASE ENGINEER LAB BLOOD ORDERABLES Final Res ult Performing Organization Address [facility] Co de Phone Number CHARIS STONE [address] [facility] [place] [address] * Prepare RBC: 2 Units (03/25/2025 6:49 AM CDT) Product code [id number] [facility] Unit Number [id number] [id number] [facility] Product Blood Type APOS [facility] Dispense Status RETURNED [facility] Product code [id number] Unit Number [id number] 1-8 [facility] Product Blood Type APOS [facility] Dispense Status RETURNED [facility] Blood 03/25/2025 6:49 AM CDT Narrative [facility] - 03/26/2025 12:33 AM CDT Specify Procedure:->TAVR Are special requirements needed? (All products are leukoreduced and CMV- safe)- >No Date required:-[id number] LRRBC # of [id number] Reasons:-Hold for procedure (specify procedure)} Jena Dahl MD BLOOD BANK PRODUCT ORDERABLES Fi nal Result Performing Organization Address [facility] de Phone Number CHARIS STONE [phone] [facility] [place] [address] * POCT glucose (03/25/2025 6:31 AM CDT) Glucose, POC 100 70 - 199 mg/dL POC Performer [id number] [facility] Blood 03/25/2025 6:31 AM CDT 03/25/2025 6:31 AM CDT Jena Dahl MD LAB POCT ORDERABLES - DEVICE Fin al Result Performing Organization Address [facility] Co de Phone Number CHARIS STONE [address] [facility] [place] [address] * ECG 12 lead (03/19/2025 2:08 PM CDT) 03/19/2025 2:08 PM CDT Narrative [facility] - 03/19/2025 2:40 PM CDT Vent Rate: 89 bpm RR Interval: 667 msec CO Interval: 218 msec QRS Duration: 88 msec QT Interval: 371 msec QTC Interval: 418 msec P-R-T Howe: 36 - 1 - 71 degrees IMPRESSION: SINUS RHYTHM WITH FIRST DEGREE AV BLOCK POSSIBLE ANTERIOR MYOCARDIAL INFARCTION , OF INDETERMINATE AGE ABNORMAL ECG Electronically Signed By: Stuart Bautista MD Jena Dahl MD ECG ORDERABLES Final Result Performing Organization Address [facility] Phone Number [facility] * X-ray chest 2 views (03/19/2025 1:53 PM CDT) Anatomical Region Laterality Modality Body, Chest N/A Computed Radiogr aphy 03/19/2025 2:39 PM CDT Impressions 03/19/2025 2:39 PM CDT No active disease. Electronically signed by: Lashon Rodríguez M.D. Narrative 03/19/2025 2:39 PM CDT EXAMINATION: XR CHEST PA LATERAL 2 VIEWS HISTORY: The patient is a 74-year-old female who is having a pre-op chest radiograph. Comparison made with the previous study dated 03/26/2024. TECHNIQUE: PA and lateral view of the chest. FINDINGS: Lungs clear. Cardiovascular structures unremarkable. Procedure Note Lashon Rodríguez MD - 03/19/2025 EXAMINATION: XR CHEST PA LATERAL 2 VIEWS HISTORY: The patient is a 74-year-old female who is having a pre-op chest radiograph. Comparison made with the previous study dated 03/26/2024. TECHNIQUE: PA and lateral view of the chest. FINDINGS: Lungs clear. Cardiovascular structures unremarkable. IMPRESSION: No active disease. Electronically signed by: Lashon Rodríguez M.D. Jena Dahl MD IMG XR PROCEDURES Final Result * eGFR (03/19/2025 1:47 PM CDT) eGFR 67 >=60 mL/min/1. 73 m2 Comment: Interpretive Data Reference Interval Normal >/= 90 mL/min/1.73m2 Mildly decreased* 60 - 89 mL/min/1.73m2 Mildly to moderately decreased 45 - 59 mL/min/1.73m2 Moderately to severely decreased 30 - 44 mL/min/1.73m2 Severely decreased 15 - 29 mL/min/1.73m2 Kidney Failure < 15 mL/min/1.73m2 *Relative to young adult level Estimated glomerular filtration rate is determined by the 2020 CKD-EPI equation recommended by the National Kidney Foundation (A Unifying Approach to GFR Estimation: Recommendations of the NKF-ASK Task Force on Reassessing the Inclusion of Race in Diagnosing Kidney Disease, JASN 2020). The CKD-EPI equation should not be used for patients with unstable renal function and has not been validated in children and those over 70. Current interpretive data was last reviewed 2021. Blood 03/19/2025 1:47 PM CDT 03/19/2025 2:17 PM CDT Jena Dahl MD LAB BLOOD ORDERABLES Final Resul t CHARIS STONE [id number] Department [place] [address] * (ABNORMAL) Differential, auto (03/19/2025 1:47 PM CDT) Neutrophil abs 5.37 1.50 - 6.50 K/cumm Imm gran abs 0.05 0.00 - 0.10 K/cumm [facility] Lymphocyte abs 2.45 0.80 - 3.30 K/cumm [facility] Monocyte abs 0.81(H) 0.20 - 0.80 K/cumm [facility] Eosinophil abs 0.33 0.00 - 0.50 K/cumm [facility] Basophil abs 0.07 0.00 - 0.10 K/cumm [facility] Neutrophil pct 59.1 % [facility] Comment: Interpretive Data Percent cell count reference ranges are not reported, since discordance with absolute values may lead to misinterpretation of CBC data. Current Interpretive Data was last revised on 2018. Imm gran pct 0.6 % [facility] Comment: Interpretive Data Percent cell count reference ranges are not reported, since discordance with absolute values may lead to misinterpretation of CBC data. Current Interpretive Data was last revised on 2018. Lymphocyte pct 27.0 % [facility] Comment: Interpretive Data Percent cell count reference ranges are not reported, since discordance with absolute values may lead to misinterpretation of CBC data. Current Interpretive Data was last revised on 2018. Monocyte pct 8.9 % [facility] Comment: Interpretive Data Percent cell count reference ranges are not reported, since discordance with absolute values may lead to misinterpretation of CBC data. Current Interpretive Data was last revised on 2018. Eosinophil pct 3.6 % [facility] Comment: Interpretive Data Percent cell count reference ranges are not reported, since discordance with absolute values may lead to misinterpretation of CBC data. Current Interpretive Data was last revised on 2018. Basophil pct 0.8 % [facility] Comment: Interpretive Data Percent cell count reference ranges are not reported, since discordance with absolute values may lead to misinterpretation of CBC data. Current Interpretive Data was last revised on 2018. Blood 03/19/2025 1:47 PM CDT 03/19/2025 2:17 PM CDT us Jena Dahl MD LAB BLOOD ORDERABLES Final Resul t CHARIS [address] Department [place] [address] * Pro B-type natriuretic peptide (03/19/2025 1:47 PM CDT) NT-proBNP 209 <=300 pg/mL Comment: Interpretive Comments: A. Dyspnea in Acute Care Setting All Ages: < 300 pg/ml, acute heart failure unlikely. < 50 yrs: 300 - 450 pg/ml, further investigation warranted. > 450 pg/ml, acute heart failure likely. 50 - 74 yrs: 300 - 900 pg/ml, further investigation warranted. > 900 pg/ml, acute heart failure likely . > or = 75 yrs: 450 - 1800 pg/ml, further investigation warranted. > 1800 pg/ml, acute heart failure likely. B. Non-acute Setting < 75 yrs < 125 pg/ml, rules out heart failure. > or = 125 pg/ml, further investigation warranted. > or = 75 yrs < 450 pg/ml, rules out heart failure. > or = 450 pg/ml, further investigation warranted. - Knowledge of each individual patient's NT-proBNP range may be more useful than using similar cut-points for every patient. Please note that marked elevations in NT-proBNP levels may be observed in state other than Left Ventricular Congestive Failure, including: acute coronary syndromes, right heart strain/failure (including pulmonary embolism and cor pulmonale), critical illness, renal failure, as well as advanced age. - References: 1. Christopher DUEÑAS et.al. Eur Heart J. 2006:27:330-337. 2. Brady RW, Tom AM. J. AM Harjinder Cardiol: Cardiovasc Imag. 2009;2: 216- 225. Interpretive Data Last Revised Date: 2018. Blood 03/19/2025 1:47 PM CDT 03/19/2025 2:17 PM CDT Jena Dahl MD LAB BLOOD ORDERABLES Final Resul t [facility] [address] Department [place] [address] * (ABNORMAL) CBC with auto differential (03/19/2025 1:47 PM CDT) [facility] Signature WBC 9.08 3.80 - 9.90 K/cumm Hgb 14.3 11.9 - 15.5 g/dL [facility] Hct 46.3(H) 35.6 - 45.5 % [facility] Plt 300 150 - 400 K/cumm [facility] MPV 9.6 9.1 - 12.3 fL [facility] RBC 5.32(H) 3.90 - 5.20 M/cumm [facility] MCV 87.0 81.3 - 96.4 fL [facility] MCH 26.9(L) 27.1 - 33.3 pg [facility] MCHC 30.9(L) 32.3 - 35.7 g/dL [facility] RDW CV 15.6(H) 11.1 - 14.9 % [facility] RDW SD 48.9(H) 35.7 - 48.1 fL [facility] NRBC abs 0.00 0.00 - 0.01 K/cumm [facility] Blood 03/19/2025 1:47 PM CDT 03/19/2025 2:17 PM CDT Jena Dahl MD LAB BLOOD ORDERABLES Final Resul t Performing Organization Address City/[facility]/ZIP Co de Phone Number CHARIS STONE [address] [employer] [place], [place] [id number] * (ABNORMAL) aPTT (03/19/2025 1:47 PM CDT) aPTT 48(H) 28 - 38 sec Comment: Interpretive Data Heparin therapeutic range: 66.0 - 100.0 seconds. Range based on correlation with therapeutic heparin activity range of 0.3 - 0.7 Units/mL. Current interpretive data was last revised on 2023. Blood 03/19/2025 1:47 PM CDT 03/19/2025 2:17 PM CDT Jena Dahl MD LAB BLOOD ORDERABLES Final Resul t CHARIS STONE [address] [employer] [place], [place] [id number] * (ABNORMAL) Protime-INR (03/19/2025 1:47 PM CDT) PT 26.5(H) 9.7 - 13.0 sec INR 2.41(H) 0.90 - 1.20 [facility] Comment: Interpretive data Oral anticoagulant therapeutic ranges: Venous thromboembolism prophylaxis or treatment: 2.0-3.0 CARDIOLOGY Standard range: 2.0-3.0 High-intensity range: 2.5-3.5 Refer to indication-specific guidelines for appropriate target ranges for prosthetic heart valve replacement. Current interpretive data was last revised on 2019. Blood 03/19/2025 1:47 PM CDT 03/19/2025 2:17 PM CDT Jena Dahl MD LAB BLOOD ORDERABLES Final Resul t Performing Organization Address [facility] Co de Phone Number [facility] [address] [place] [address] * Type and screen (03/19/2025 1:47 PM CDT) Salazar, indirect Negative ABO Rh A Positive CHARIS Blood 03/19/2025 1:47 PM CDT 03/19/2025 2:24 PM CDT Narrative CHARIS - 03/19/2025 3:34 PM CDT Has the patient had Daratumumab or Isatuximab in the past 6 months?->Unknown Jena Dahl MD LAB BLOOD BANK TEST ORDERABLES F inal Result Performing Organization Address [facility] Co de Phone Number [facility] [address] [address] [facility] [place] [address] * (ABNORMAL) Hemoglobin A1c (03/19/2025 1:47 PM CDT) Hgb A1C 7.9(H) 4.0 - 5.6 % Estimated Average Glucose 180 mg/dL CHARIS Comment: The ADA recommends reporting an estimated Average Glucose (eAG) with all Hemoglobin A1c results using the equation derived from a study of 507 normal and diabetic adults. Minority populations were underrepresented and children were not included. (Diabetes Care 31:1047-3157, 2008). The eAG is not equivalent to a fasting glucose. Blood 03/19/2025 1:47 PM CDT 03/19/2025 2:17 PM CDT Jena Dahl MD LAB BLOOD ORDERABLES Final Resul t CHARIS [address] Department [place] [address] * (ABNORMAL) Comprehensive metabolic panel (03/19/2025 1:47 PM CDT) Sodium 142 135 - 145 mmol/L Potassium, pl 4.2 3.3 - 4.9 mmol/L CERNER CH Chloride 102 97 - 110 mmol/L CERNER CH CO2 26 22 - 32 mmol/L CERNER CH Anion gap 14 2 - 15 mmol/L CERNER CH BUN 21 6 - 25 mg/dL CERNER CH Creatinine 0.91 0.60 - 1.10 mg/dL CERNER CH Glucose 182 70 - 199 mg/dL CERNER CH Comment: Interpretive Data Fasting glucose >/= 126 mg/dl is diagnostic for diabetes. Fasting is defined as no caloric intake for at least 8 hours. Fasting glucose between 100 mg/dl to 125 mg/dl is diagnostic of prediabetes. In a patient with classic symptoms of hyperglycemia or hyperglycemic crisis, a random glucose >/= 200 mg/dl is diagnostic for diabetes. In the absence of unequivocal hyperglycemia, results should be confirmed by repeat testing. The classification and Diagnosis of Diabetes Diabetes Care 202; 46: S19-S40. Current interpretive data was last revised 2022. Calcium 9.3 8.5 - 10.3 mg/dL CERNER CH Bilirubin, total 0.5 0.1 - 1.2 mg/dL CERNER CH Protein, pl 7.4 6.5 - 8.5 g/dL CERNER CH Albumin 4.1 3.5 - 5.0 g/dL CERNER CH Alk phos 137(H) 40 - 130 Units/L CERNER CH ALT 20 7 - 45 Units/L CERNER CH AST 24 10 - 45 Units/L CERNER CH Blood 03/19/2025 1:47 PM CDT 03/19/2025 2:17 PM CDT Jena Dahl MD LAB BLOOD ORDERABLES Final Resul t CHARIS [address] [facility] Department [place] [address] * US Carotids Bilateral (03/01/2025 10:46 AM CDT) Anatomical Region Laterality Modality Vascular Bilateral Ultrasound 03/01/2025 4:15 PM CDT Impressions 03/01/2025 4:15 PM CDT There is less than 50% stenosis noted in the right and the left internal carotid arteries. Electronically signed by: Lashon Rodríguez M.D. Narrative 03/01/2025 4:15 PM CDT EXAMINATION: US CAROTIDS DUPLEX BILATERAL HISTORY: The patient is a 74-year-old female who presents with severe aortic stenosis. TECHNIQUE: Bilateral carotid artery duplex ultrasound examination was performed with schwab scale imaging, color Doppler imaging and spectral waveform analysis. Nascet criteria was utilized. FINDINGS: Right side: Plaque morphology: There is smooth, homogenous plaque noted in the carotid bulb and proximal ICA with flecks of calcification within it. Peak systolic velocity in the right CCA is 73 cm/s, in the distal ICA is 67/21 cm/s and in the ECA is 84 cm/s with an ICA/CCA ratio of 0.9. Normal antegrade flow noted in the right vertebral artery. Left side: Plaque morphology: There is smooth, homogenous plaque noted in the carotid bulb and proximal ICA with flecks of calcification within it. Peak systolic velocity in the left CCA is 86 cm/s, in the distal ICA is 82/30 cm/s and in the ECA is 73 cm/s with an ICA/CCA ratio of 1.0. Normal antegrade flow noted in the left vertebral artery. Procedure Note Lashon Rodríguez MD - 03/01/2025 EXAMINATION: US CAROTIDS DUPLEX BILATERAL HISTORY: The patient is a 74-year-old female who presents with severe aortic stenosis. TECHNIQUE: Bilateral carotid artery duplex ultrasound examination was performed with schwab scale imaging, color Doppler imaging and spectral waveform analysis. Nascet criteria was utilized. FINDINGS: Right side: Plaque morphology: There is smooth, homogenous plaque noted in the carotid bulb and proximal ICA with flecks of calcification within it. Peak systolic velocity in the right CCA is 73 cm/s, in the distal ICA is 67/21 cm/s and in the ECA is 84 cm/s with an ICA/CCA ratio of 0.9. Normal antegrade flow noted in the right vertebral artery. Left side: Plaque morphology: There is smooth, homogenous plaque noted in the carotid bulb and proximal ICA with flecks of calcification within it. Peak systolic velocity in the left CCA is 86 cm/s, in the distal ICA is 82/30 cm/s and in the ECA is 73 cm/s with an ICA/CCA ratio of 1.0. Normal antegrade flow noted in the left vertebral artery. IMPRESSION: There is less than 50% stenosis noted in the right and the left internal carotid arteries. Electronically signed by: Lashon Rodríguez M.D. us Jena Dahl MD IM US PROCEDURES Final Result * CT TAVR (03/01/2025 10:08 AM CDT) Anatomical Region Laterality Modality Chest N/A Computed Tomogra phy 03/01/2025 11:2 2 AM CDT Impressions 03/01/2025 11:41 AM CDT 1. Aortic annulus, and abdominal aortic, common iliac, external iliac, and femoral artery measurements in preparation for TAVR procedure as described above. 2. Aortic valve calcium score: Agatston 3227, volume 2533 mm3. Dictated by: Jaiden Christopher M.D. The radiology attending physician has personally reviewed this study, and had reviewed and/or edited this written report and agrees with it. Electronically signed by: Gee Clarke M.D. Narrative 03/01/2025 11:41 AM CDT EXAMINATION: CT TAVR HISTORY: Severe aortic stenosis, pre-TAVR procedure. TECHNIQUE: Heart CT and CT angiogram of the abdomen and pelvis performed during intravenous administration of 120 mL of Optiray 350 per the TAVR Protocol. Images were transferred to an independent workstation for additional 3D post-processing. COMPARISON: CTA heart and coronary arteries dated 01/24/2024 FINDINGS: Annulus and thoracic aortic measurements (in systole): Aortic valve annulus: Area 496 mm2; circumference 81 mm; 29 mm maximum diameter x 22 mm minimum diameter Sinuses of Valsalva: 32 mm x 32 mm x 33 mm [id number] Sinotubular junction: 28 mm x 31 mm Distance to RCA ostium from aortic valve annulus: 14 mm Distance to left main ostium from annulus: 17 mm Deployment angle: 4 CHINESE, 10 cranial Right coronary sinus height: 22 mm Left coronary sinus height: 17 mm Non-coronary sinus height: 22 mm Aortic valve calcium score: Agatston 3227, volume 2533 mm3 There is mild left ventricular outflow tract calcification. There is mild mitral annular calcification. Coronary arteries: Anomalous coronary artery course: No Left main atherosclerosis: Mild LAD atherosclerosis: Mild Circumflex atherosclerosis: Moderate RCA atherosclerosis: Mild Abdominal aortic and pelvic arterial smallest diameter measurements (made from centerline curved MPRs): Infrarenal aorta: 17 mm x 17 mm. There is mild calcification. Right common iliac artery: 11 mm x 10 mm. There is mild calcification. Left common iliac artery: 11 mm x 11 mm. There is mild calcification. There is moderate tortuosity of the bilateral common iliac arteries. This is more severe on the left. Right external iliac artery: 9 mm x 10 mm. There is mild calcification. Left external iliac artery: 11 mm x 10 mm. There is mild calcification. There is moderate tortuosity of the bilateral external iliac arteries. This is more severe on the right. Right common femoral artery: 9 mm. There is mild calcification. Left common femoral artery: 10 mm. There is mild calcification. There is mild tortuosity of the bilateral femoral arteries. This is equal in distribution. 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 The heart size is normal. There is no pleural or pericardial effusion. There is no cardiac mass or thrombus. Changes of prior percutaneous coronary intervention are noted. There is no focal hepatic lesion. The gallbladder, pancreas, spleen and adrenals are normal. Bilateral renal cysts are present. The urinary bladder is unremarkable. There is colonic diverticulosis without diverticulitis. There is no bowel wall thickening or bowel obstruction. There is no pathologic lymphadenopathy in the abdomen or pelvis. There is no suspicious osseous lesion. Degenerative changes are noted in the spine. Procedure Note Gee Clarke MD - 03/01/2025 EXAMINATION: CT TAVR HISTORY: Severe aortic stenosis, pre-TAVR procedure. TECHNIQUE: Heart CT and CT angiogram of the abdomen and pelvis performed during intravenous administration of 120 mL of Optiray 350 per the TAVR Protocol. Images were transferred to an independent workstation for additional 3D post-processing. COMPARISON: CTA heart and coronary arteries dated 01/24/2024 FINDINGS: Annulus and thoracic aortic measurements (in systole): Aortic valve annulus: Area 496 mm2; circumference 81 mm; 29 mm maximum diameter x 22 mm minimum diameter Sinuses of Valsalva: 32 mm x 32 mm x 33 mm [id number] Sinotubular junction: 28 mm x 31 mm Distance to RCA ostium from aortic valve annulus: 14 mm Distance to left main ostium from annulus: 17 mm Deployment angle: 4 CHINESE, 10 cranial Right coronary sinus height: 22 mm Left coronary sinus height: 17 mm Non-coronary sinus height: 22 mm Aortic valve calcium score: Agatston 3227, volume 2533 mm3 There is mild left ventricular outflow tract calcification. There is mild mitral annular calcification. Coronary arteries: Anomalous coronary artery course: No Left main atherosclerosis: Mild LAD atherosclerosis: Mild Circumflex atherosclerosis: Moderate RCA atherosclerosis: Mild Abdominal aortic and pelvic arterial smallest diameter measurements (made from centerline curved MPRs): Infrarenal aorta: 17 mm x 17 mm. There is mild calcification. Right common iliac artery: 11 mm x 10 mm. There is mild calcification. Left common iliac artery: 11 mm x 11 mm. There is mild calcification. There is moderate tortuosity of the bilateral common iliac arteries. This is more severe on the left. Right external iliac artery: 9 mm x 10 mm. There is mild calcification. Left external iliac artery: 11 mm x 10 mm. There is mild calcification. There is moderate tortuosity of the bilateral external iliac arteries. This is more severe on the right. Right common femoral artery: 9 mm. There is mild calcification. Left common femoral artery: 10 mm. There is mild calcification. There is mild tortuosity of the bilateral femoral arteries. This is equal in distribution. 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 The heart size is normal. There is no pleural or pericardial effusion. There is no cardiac mass or thrombus. Changes of prior percutaneous coronary intervention are noted. There is no focal hepatic lesion. The gallbladder, pancreas, spleen and adrenals are normal. Bilateral renal cysts are present. The urinary bladder is unremarkable. There is colonic diverticulosis without diverticulitis. There is no bowel wall thickening or bowel obstruction. There is no pathologic lymphadenopathy in the abdomen or pelvis. There is no suspicious osseous lesion. Degenerative changes are noted in the spine. IMPRESSION: 1. Aortic annulus, and abdominal aortic, common iliac, external iliac, and femoral artery measurements in preparation for TAVR procedure as described above. 2. Aortic valve calcium score: Agatston 3227, volume 2533 mm3. Dictated by: Jaiden Christopher M.D. The radiology attending physician has personally reviewed this study, and had reviewed and/or edited this written report and agrees with it. Electronically signed by: Gee Clarke M.D. Jena Dahl MD IM CT PROCEDURES Final Result * Screening Mammogram Bilateral W Kane (04/17/2024 12:31 PM CDT) Anatomical Region Laterality Modality Breast Bilateral Mammography Narrative 04/18/2024 11:27 AM CDT Mammogram Technique: Bilateral Digital Breast Tomosynthesis, Bilateral C-view 2D Screening mammogram. Views obtained: bilateral craniocaudal and bilateral mediolateral oblique. Computer Aided Detection was performed. Mammogram Findings: The present examination has been compared to prior imaging studies performed at [facility] on 03/17/2021, 03/23/2022 and 04/06/2023. There are scattered areas of fibroglandular density. There is no suspicious abnormality in either breast. Impression: There is no mammographic evidence of malignancy. Annual screening mammography is recommended. OVERALL FINAL ASSESSMENT: BI-RADS CATEGORY 1: Negative. Procedure Note Radha Thakkar MD - 04/18/2024 Mammogram Technique: Bilateral Digital Breast Tomosynthesis, Bilateral C-view 2D Screening mammogram. Views obtained: bilateral craniocaudal and bilateral mediolateral oblique. Computer Aided Detection was performed. Mammogram Findings: The present examination has been compared to prior imaging studies performed at [facility] on 03/17/2021, 03/23/2022 and 04/06/2023. There are scattered areas of fibroglandular density. There is no suspicious abnormality in either breast. Impression: There is no mammographic evidence of malignancy. Annual screening mammography is recommended. OVERALL FINAL ASSESSMENT: BI-RADS CATEGORY 1: Negative. 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 05/06/2025 Insurance [employer] MEDICARE ADVANTAGE [facility] MEDICARE ADVANTAGE [facility] MEDICARE ADVANTAGE Advance Directives For more information, please contact: [phone] * Full Code (Latest Code Status on File) Date Activated Date Inactivated Comments 05/21/2025 7:33 AM 05/22/2025 4:53 PM * Full Code Date Activated Date Inactivated Comments 04/12/2025 7:19 AM 05/10/2025 5:23 PM * Full Code Date Activated Date Inactivated Comments 03/26/2025 7:25 PM 04/12/2025 7:19 AM * Full Code Date Activated Date Inactivated Comments 03/25/2025 3:41 PM 03/26/2025 7:21 PM * Full Code Date Activated Date Inactivated Comments 05/21/2019 12:33 AM 05/24/2019 9:15 PM Healthcare Agents on File Name Relationship Healthcare Agent Relationship Communication Ame Goodson Daughter Health Care Agent Care Teams Corporate Strategy Analyst Relationship Specialty Start Date End Date Nikunj Sandoval MD [address] [place] [address] [address] [place] [id number] PCP - General Family Medicine 04/17/24
--- OUTSIDE RECORDS SUMMARY | 2025-05-31 12:10 | XMS_ITS | Clinical Summary ---
Author Organization [facility] Address [address] 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
--- OUTSIDE RECORDS SUMMARY | 2025-05-31 12:10 | XMS_ITS | Encounter Summary ---
Author Organization [facility] Address [address] 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
--- OUTSIDE RECORDS SUMMARY | 2025-05-31 12:10 | XMS_ITS | Clinical Summary ---
Author Organization [facility] Address [address] [place] [address] Care Team Providers Care Latin American Studies Director Name Role Phone Vadim Roberto MD Primary Care Provider [phone] Source Comments [facility],non-[facility] health Affiliates and Associated Physician Practices is amultiple site organization consisting of ambulatory clinics and hospital sitesin [place], [place], [place] and [place]. This disclosure is being madepursuant to the Care Everywhere program and may not contain all information available regarding this patient. Last updated 18.[facility] [place] Social History Tobacco Use Types Packs/Day Years Used Date Smoking Tobacco: Never Assessed Comments Unknown Sex and Gender Information Value Date Recorded Sex Assigned at Not on file Legal Sex Female 2:07 PM CDT Gender Identity Not on file Sexual Orientation Not on file Plan of Treatment Health Maintenance Due Date Last Done Comments BONE DENSITY TESTING 1950 COLOGUARD (AGES 45-75) - COL ON CA SCREENING 1951 COLON MONITORING 1951 COLONOSCOPY - COLON CA SCREENING 1951 CT COLONOGRAPHY - COLON CA SCREENING 1950 Colorectal Cancer Screening 1951 FIT - COLON CA SCREENING 1951 FLEX SIG - COLON CA SCREENING 1951 LIPID TESTING 1951 MAMMOGRAM 1951 HEPATITIS C SCREENING 06/08/1969 DTAP/TDAP/TD VACCINES (1 - Tdap) 1970 PNEUMOCOCCAL VACCINE 50+ (1 of 1 - PCV) 2001 ZOSTER VACCINE (1 of 2) 2001 COVID-19 VACCINE ( - 2023-2 5 season) 2024 DEPRESSION SCREENING 10/17/2024 INFLUENZA VACCINE (#1) 2025 Respiratory Syncytial Virus (RSV) Vaccine Pt: or over 60 yrs (1 - 1-dose 75+ series) 2026 HEPATITIS B VACCINE Aged Out No longe r eligible based on patient's age to complete this topic HIB VACCINE Aged Out No longer eligi ble based on patient's age to complete this topic HPV VACCINE Aged Out No longer eligi ble based on patient's age to complete this topic MENINGOCOCCAL (Group B) VACC INE SHARED DECISION-MAKING Aged Out No longer eligibl e based on patient's age to complete this topic MENINGOCOCCAL GROUPS A/C/Y/W VACCINE Aged Out No longer eligible b ased on patient's age to complete this topic Insurance [facility] Care Teams Latin American Studies Director Relationship Specialty Start Date End Date Vadim Roberto MD [address] [place] [id number] PCP - General Family Medicine 02/16/13
--- OUTSIDE RECORDS SUMMARY | 2025-05-31 12:10 | XMS_ITS | Encounter Summary ---
Author Organization [facility] Address [address] 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
[2025-05-31 13:10] LABS: Hematocrit 38.8 % (37.0-47.0); Hemoglobin 12.2 g/dL (12.0-15.0); Immature Granulocyte Percent A 0.7 % (0-0.5); Lymphocytes Absolute Auto 2.45 K/mm3 (0.9-3.2); Mean Corpuscular HGB Conc 31.4 g/dl (32-36); Mean Corpuscular Hemoglobin 31.0 pg (26-34); Mean Corpuscular Volume 98.5 fl (80-100); Nucleated Red Blood Cells Absolute Auto 0.000 K/mm3 (0.0-0.012); Nucleated Red Blood Cells Perc 0.0 % (0.0-0.2); Platelet Count Result 242 k/mm3 (150-375); Red Blood Count 3.94 M/mm3 (4.2-5.4); White Blood Count 7.0 K/mm3 (4.5-10.0)
[2025-05-31 13:31] LABS: Alanine Aminotransferase 18 U/L (6-35); Albumin Level 3.7 g/dL (3.5-5.1); Alkaline Phosphatase 114 U/L (38-126); Anion Gap 8 mmol/L (4-12); Aspartate Amino Transferase 27 U/L (14-36); Bilirubin,Total 0.4 mg/dL (0.2-1.3); Blood Urea Nitrogen 16 mg/dL (7-17); Calcium 9.5 mg/dL (8.4-10.2); Carbon Dioxide 26 mmol/L (22-30); Chloride 101 mmol/L (98-107); Estimated Glomerular Filt Rate > 60; Glucose 175 mg/dL (65-110); Magnesium 1.8 mg/dL (1.6-2.3); Potassium 4.1 mmol/L (3.4-5.0); Sodium 135 mmol/L (137-145); Total Protein 7.5 g/dL (6.3-8.2)
[2025-05-31 15:03] LABS: Thyroid Stimulating Hormone 1.000 uIU/mL (0.465-4.680)
== END 2025-05-31 12:04 | disposition home or self-care (01) ==
PROVIDERS: PCP Family Medicine; Visit Provider Family Medicine
DX: E03.9 Hypothyroidism, unspecified (principal); D64.9 Anemia, unspecified; E87.1 Hypo-osmolality and hyponatremia
CPT/HCPCS: 80053; 83735; 84443; 85025